=== PATIENT | male | born 1960 | race Caucasian/White ===

== ENCOUNTER 2017-07-25 15:50 | Observation (INO) ==
[2017-07-25] MEDS ORDERED: methylPREDNISolone 125 MG/2 ML VIAL IVP ONE (16:44)
[2017-07-25] MEDS ORDERED: Ipratropium/Albuterol Neb 3 ML IH ONE (16:44)
--- NOTE | 2017-07-25 16:49 | Emergency Department Note ---
Disposition Clinical Impression: Acute exacerbation of chronic obstructive airways disease Disposition: Admitted As Inpatient Condition: Fair Referrals: Marilyn Rojas CNP [Primary Care Provider] - Forms: ED Satisfaction Letter Time of Disposition: 19:00 SOB HPI - General Chief Complaint: ED Shortness of Breath/Dyspnea Stated Complaint: PHYLLIS, "clot in stomach" Time Seen by Provider: 07/25/17 16:17 Source: patient Limitations: no limitations Nursing Notes Reviewed: Yes Vital Signs Reviewed: Yes - History of Present Illness Patient is a 57-year-old male who presents to [facility] ED with a chief complaint of cough and difficulty breathing. States he has had recurrent pneumonia the last 3-4 weeks and has been admitted at [facility] multiple times. Past medical history significant for COPD. States he is getting more short of breath with exertion. Denies any nausea, vomiting, fever or chills. No chest pain. Patient states he has had abdominal pain in which they told him he had a "blockage". Patient states his abdomen has continued to be tender and has had trouble with his bowel movements. Pt Subjective Complaint: shortness of breath, cough Onset (ago): week(s) Context: recent illness Severity: moderate Consistency/Duration: gradually worsening Improves with: nothing Worsens with: nothing Known history of: COPD Associated symptoms: Reports: cough, abdominal pain. Denies: chest pain, fever , nausea/vomiting Treatment prior to arrival: none - Related Data Home Medications Medication Instructions Recorded Confirmed Albuterol Sulfate [Albuterol 2 puff IH Q4H PRN 07/25/17 07/25/17 Inhaler] Azithromycin [Azithromycin] 250 mg PO PER PKG DI 07/25/17 07/25/17 Budesonide Neb [Pulmicort Neb] 0.5 mg IH BID 07/25/17 07/25/17 Docusate [Colace] 100 mg PO BID 07/25/17 07/25/17 Ipratropium/Albuterol Neb [Duoneb] 3 ml IH Q4H 07/25/17 07/25/17 Ketorolac Tromethamine 10 mg PO Q6H PRN 07/25/17 07/25/17 Oxygen 4 l NS AD 07/25/17 07/25/17 Polyethylene Glycol 3350 17 gm PO DAILY PRN 07/25/17 07/25/17 Roflumilast [Daliresp] 500 mcg PO DAILY 07/25/17 07/25/17 Tiotropium [place] [Spiriva 2 puff IH DAILY 07/25/17 07/25/17 Respimat] predniSONE [Prednisone] 50 mg PO DAILY 07/25/17 07/25/17 Allergies Allergy/AdvReac Type Severity Reaction Status Date / Time No Known Allergies Allergy Verified 08/17/16 19:37 All systems ED: reviewed and negative except as stated. Past Medical History - Past Medical History Attestation: Yes The following information was validated with the patient. Source: patient Medical history: Reports: COPD Psychiatric history: Reports: no psych history - Social History Smoking Status: Former smoker Smokeless Tobacco Status: No Alcohol use: Reports: none Drug use: Reports: marijuana Physical Exam - General Limitations: no limitations General appearance: alert, in no apparent distress - Head Head exam: atraumatic, normocephalic, normal inspection - Eye Eye exam: Present: normal appearance, EOMI - ENT ENT exam: normal exam, normal oropharynx, mucous membranes moist - Neck Neck exam: Present: normal inspection, full ROM, trachea midline - Chest Chest inspection: Present: normal inspection, symmetric chest wall rise - Respiratory Respiratory exam: Present: wheezes, other (Decreased breath sounds bilaterally) - Cardiovascular Cardiovascular exam: Present: normal rhythm, tachycardia - Abdominal Exam Abdominal exam: Present: soft, tenderness, normal bowel sounds - Extremities Exam Extremities exam: Present: normal inspection, full ROM. Absent: tenderness, pedal edema - Back Exam Back exam: Present: normal inspection, full ROM. Absent: tenderness - Neurological Exam Neurological exam: Present: alert, oriented X3 - Psychiatric Psychiatric exam: Present: normal affect, normal mood - Skin Skin exam: Present: warm, dry, intact, normal color Course Course Narrative: Patient seen and examined. Patient with difficulty breathing and abdominal pain. Lab work, chest x-ray, CTA chest, abdomen and pelvis with IV contrast ordered. We will order a triple DuoNeb as well as Solu-Medrol. - Reevaluation(s) Reevaluation #1: Imaging unremarkable. Pt still having poor aeration with tight breath sounds b/l despite multiple duonebs. Will admit for COPD exacerbation. Discussed with hospitalist Dr. Daly who has accepted pt for admission. Time: 19:00 Vital Signs Temperature 98.5 F 07/25/17 15:53 Pulse Rate 120 07/25/17 15:53 Respiratory Rate 28 07/25/17 15:53 Blood Pressure 161/90 07/25/17 15:53 O2 Sat by Pulse Oximetry 95 07/25/17 15:53 Temperature 98.5 F 07/25/17 15:53 Pulse Rate 105 07/25/17 18:52 Respiratory Rate 11 07/25/17 18:52 Blood Pressure 116/85 07/25/17 18:52 O2 Sat by Pulse Oximetry 92 07/25/17 18:52 Oxygen Delivery Oxygen Delivery Nasal Cannula Shortness of Breath/Dyspnea - Medical Records Medical records reviewed: Yes I reviewed the patient's medical records. - Lab Data Lab results reviewed: Yes I reviewed the patient's lab results. Result diagrams: 07/25/17 16:53 07/25/17 16:53 Lab Results 07/25/17 07/25/17 07/25/17 Range/Units 16:53 16:53 16:53 WBC 7.4 (4.3-11.1) K/mcL RBC 4.78 (4.19-5.50) M/mcL Hgb 13.7 (12.9-16.9) g/dL Hct 42.4 (37.5-50.1) % MCV 88.7 (83.0-100.0) fL MCH 28.7 (28.0-33.3) pg MCHC 32.3 (31.6-35.5) g/dL RDW 14.6 H (11.5-14.5) % Plt Count 313 (140-400) K/mcL MPV 9.6 (9.4-12.4) fL Immature Gran % 0.3 (0-4) % Seg Neutrophils % 94.2 % Lymphocytes % 3.5 % Monocytes % 2.0 % Eosinophils % 0.0 % Basophils % 0.0 % Neutrophils # 6.9 (1.6-8.9) K/mcL Lymphocytes # 0.3 L (0.6-4.6) K/mcL Monocytes # 0.2 (0.0-1.3) K/mcL Eosinophils # 0.0 (0.0-0.6) K/mcL Basophils # 0.0 (0.0-0.2) K/mcL Sodium 137 (136-145) mEq/L Potassium 4.5 (3.5-5.1) mEq/L Chloride 96 L (98-107) mEq/L Carbon Dioxide 31 H (23-29) mEq/L BUN 25 H (6-20) mg/dL Creatinine 0.67 L (0.70-1.30) mg/dL Est GFR ( Amer) > 60 (> 60) Est GFR (Non-Af Amer) > 60 (> 60) BUN/Creatinine Ratio 37 H (6-26) Glucose 160 H (70-105) mg/dL Calculated Osmolality 292 (280-300) Lactic Acid 1.4 (0.5-2.2) mmol/L Calcium 9.1 (8.6-10.3) mg/dL Troponin I < 0.03 (< 0.04) ng/mL B-Natriuretic Peptide (Less than 100) pg/mL 07/25/17 Range/Units 16:53 WBC (4.3-11.1) K/mcL RBC (4.19-5.50) M/mcL Hgb (12.9-16.9) g/dL Hct (37.5-50.1) % MCV (83.0-100.0) fL MCH (28.0-33.3) pg MCHC (31.6-35.5) g/dL RDW (11.5-14.5) % Plt Count (140-400) K/mcL MPV (9.4-12.4) fL Immature Gran % (0-4) % Seg Neutrophils % % Lymphocytes % % Monocytes % % Eosinophils % % Basophils % % Neutrophils # (1.6-8.9) K/mcL Lymphocytes # (0.6-4.6) K/mcL Monocytes # (0.0-1.3) K/mcL Eosinophils # (0.0-0.6) K/mcL Basophils # (0.0-0.2) K/mcL Sodium (136-145) mEq/L Potassium (3.5-5.1) mEq/L Chloride (98-107) mEq/L Carbon Dioxide (23-29) mEq/L BUN (6-20) mg/dL Creatinine (0.70-1.30) mg/dL Est GFR ( Amer) (> 60) Est GFR (Non-Af Amer) (> 60) BUN/Creatinine Ratio (6-26) Glucose (70-105) mg/dL Calculated Osmolality (280-300) Lactic Acid (0.5-2.2) mmol/L Calcium (8.6-10.3) mg/dL Troponin I (< 0.04) ng/mL B-Natriuretic Peptide 18 (Less than 100) pg/mL - Radiology Data Radiology results reviewed: Yes I reviewed the patient's radiology results. Chest X-Ray 07/25/17 16:44 IMPRESSION: No acute process. D/ / Torito Davila MD / Torito Davila MD Interpreting Provider: Torito Davila MD Abdomen/Pelvis CT 07/25/17 16:51 IMPRESSION: No evidence of pulmonary embolism or acute cardiopulmonary process. Severe centrilobular emphysematous changes. No evidence of acute inflammatory process in the abdomen or pelvis. D/ / 07/25/2017 18:42:19 Catrina Mejias MD / arabella Interpreting Provider: Catrina Mejias MD Chest CTA 07/25/17 16:51 IMPRESSION: No evidence of pulmonary embolism or acute cardiopulmonary process. Severe centrilobular emphysematous changes. No evidence of acute inflammatory process in the abdomen or pelvis. D/ / 07/25/2017 18:42:19 Catrina Mejias MD / arabella Interpreting Provider: Catrina Mejias MD - EKG Data EKG attestation: Yes I reviewed and interpreted this EKG. EKG results narrative: EKG done at 1609 shows normal sinus rhythm with a rate of [address] elevation or depression. Normal axis. Unchanged from prior EKG done 2016.
[2017-07-25 17:04] LABS: Hematocrit 42.4 % (37.5-50.1); Hemoglobin 13.7 g/dL (12.9-16.9); Immature Granulocytes % 0.3 % (0-4); Lymphocytes # 0.3 K/mcL (0.6-4.6); Lymphocytes % 3.5 %; Mean Corpuscular HGB Conc 32.3 g/dL (31.6-35.5); Mean Corpuscular Hemoglobin 28.7 pg (28.0-33.3); Mean Corpuscular Volume 88.7 fL (83.0-100.0); Mean Platelet Volume 9.6 fL (9.4-12.4); Monocytes # 0.2 K/mcL (0.0-1.3); Neutrophils # 6.9 K/mcL (1.6-8.9); Platelet Count 313 K/mcL (140-400); Red Blood Count 4.78 M/mcL (4.19-5.50); Red Cell Distribution Width 14.6 % (11.5-14.5); Segmented Neutrophils % 94.2 %
--- NOTE | 2017-07-25 17:25 | Emergency Department Note ---
START Narrative - START START: I examined this patient and my medical decision-making was reviewed with the Resident Physician. I agree with the documented findings, disposition and treatment plan as described except to the extent set forth below. 57 year old male presnts to the ED with complaints of dyspnea and states that he was most recently admitted to [facility] for pneumonia and has a history of COPD. In regards to the clot in his stomach he typically states taht he becomes constipated and then feels as thogh he beceomes bloated. PAtent has decreased air movement. We will treat him with breathing treamtnts and steroids and re-evalaute for HCAP.
[2017-07-25 17:28] LABS: BUN/Creatinine Ratio 37 (6-26); Blood Urea Nitrogen 25 mg/dL (6-20); Calcium 9.1 mg/dL (8.6-10.3); Carbon Dioxide 31 mEq/L (23-29); Chloride 96 mEq/L (98-107); Glucose 160 mg/dL (70-105); Osmolality,Calculated 292 (280-300); Potassium 4.5 mEq/L (3.5-5.1); Sodium 137 mEq/L (136-145); Troponin I < 0.03 ng/mL (< 0.04); eGFR For African Americans > 60 (> 60); eGFR For Non-African Americans > 60 (> 60)
[2017-07-25] MEDS ORDERED: Pantoprazole 40 MG VIAL IVP ONE (19:14)
[2017-07-25] MEDS ORDERED: Naloxone 0.4 MG/ML INJ IVP PRN (20:12)
[2017-07-25] MEDS ORDERED: NON-FORMULARY MEDICATION 1 EACH EACH (Oxygen [Oxygen] 4 L) NS SCH (20:15)
--- NOTE | 2017-07-25 20:21 | Internal Med History&Physical ---
Date of Encounter: 07/25/17 Time of Encounter: 19:30 Assessment and Plan (1) Acute exacerbation of chronic obstructive airways disease Current visit: Yes Status: Acute Patient presenting with shortness of breath and wheezing. We will place him under observation the hospital for acute COPD exacerbation. Treat with bronchodilators, intravenous steroids and O2 supplementation. Moderate risk for complications. We will also add Symbicort. (2) Chronic respiratory failure with hypoxia Current visit: Yes Status: Acute On 4 L home oxygen. Will continue O2 supplementation. (3) Abdominal pain Current visit: Yes Status: Acute Patient has lower abdominal pain. Nontender to palpation. Will get ultrasound of the abdomen in the morning to look for any acute abdominal process/ascites Qualifiers: Abdominal location: lower abdomen, unspecified Qualified Code(s): R10.30 - Lower abdominal pain, unspecified (4) DVT prophylaxis Current visit: Yes Status: Acute With subcutaneous heparin Internal Medicine - H&P: HPI Chief complaint: Shortness of breath and abdominal bloating Admitted From: Emergency Dept Plans for Post Hospital Care: Home History of present illness: Mr. Blanchard is a 57 year old male patient with history of COPD who presented here with complaints of shortness of breath and abdominal discomfort. He says his symptoms have been going on for a month. He was previously diagnosed with pneumonia and had been prescribed antibiotics as outpatient. He was then hospitalized at [facility] for shortness of breath and COPD 2 times over the past couple of weeks. He says he has never ever has not really recovered from that episode and began to have worsening shortness of breath since yesterday. No fever or chills reported. Does have cough with mild sputum production. No chest pain. No palpitations. He also complains of abdominal bloating and discomfort. He denies any nausea or vomiting. He had a bowel movement earlier this morning. Denies any history of alcohol abuse. No prior history of cirrhosis or ascites. Past Med Surg Social Fam HX - Past Medical History Attestation: Yes The following information was validated with the patient. Source: patient Medical history: COPD Psychiatric history: no psych history - Social History Smoking Status: Former smoker Smokeless Tobacco Status: No Alcohol use: none Drug use: marijuana Internal Medicine - H&P: Meds Albuterol Sulfate [Albuterol Inhaler] 2 puff IH Q4H PRN 07/25/17 [History] Azithromycin [Azithromycin] 250 mg PO PER PKG DI 07/25/17 [History] Budesonide Neb [Pulmicort Neb] 0.5 mg IH BID 07/25/17 [History] Docusate [Colace] 100 mg PO BID 07/25/17 [History] Ipratropium/Albuterol Neb [Duoneb] 3 ml IH Q4H 07/25/17 [History] Ketorolac Tromethamine 10 mg PO Q6H PRN 07/25/17 [History] Oxygen 4 l NS AD 07/25/17 [History] Polyethylene Glycol 3350 17 gm PO DAILY PRN 07/25/17 [History] Roflumilast [Daliresp] 500 mcg PO DAILY 07/25/17 [History] Tiotropium [place] [Spiriva Respimat] 2 puff IH DAILY 07/25/17 [History] predniSONE [Prednisone] 50 mg PO DAILY 07/25/17 [History] 3 Allergy/AdvReac Type Severity Reaction Status Date / Time No Known Allergies Allergy Verified 08/17/16 19:37 All Systems PM: A 10-system review of systems was performed and is negative for pertinent findings except as documented above in the HPI. - Constitutional Constitutional: malaise, no chills, no fever(s), no night sweats - EENT Eyes: no change in vision, no discharge, no pain, no photophobia Ears: no ear discharge, no ear pain, no tinnitus Nose, mouth and throat: no dysphagia, no nasal discharge, no neck pain, no sore throat - Cardiovascular Cardiovascular ROS IM: no chest pain, no diaphoresis, no dyspnea, no lightheadedness, no palpitations, no syncope - Respiratory Respiratory: dyspnea, no cough, no wheezing, no excessive phlegm production - Gastrointestinal Gastrointestinal: no abdominal pain, no diarrhea, no hematemesis, no hematochezia, no melena, no nausea, no vomiting - Musculoskeletal Musculoskeletal ROS IM: no numbness, no tingling - Integumentary Integumentary IM: no rash, no unusual bruising - Neurological Neurological ROS: no confusion, no convulsions, no focal weakness, no numbness, no tingling, no tremor(s) - Hematologic/Lymphatic Hematologic/Lymphatic: no easy bruising - Constitutional Vitals: Temp Pulse Resp BP Pulse Ox 98.5 F 105 11 116/85 92 07/25/17 15:53 07/25/17 18:52 07/25/17 18:52 07/25/17 18:52 07/25/17 18:52 General appearance: Present: cooperative, mild distress, A&O X 3, answers questions appropriately - Neck Neck exam general surgery: Present: supple, trachea midline. Absent: lymphadenopathy - Respiratory Respiratory exam: Present: prolonged expiratory phase, wheezes. Absent: accessory muscle use, rales, rhonchi - Cardiovascular Cardiovascular exam: Present: RRR, +S1, +S2. Absent: diastolic murmur, gallop, rubs, systolic murmur - GI/Abdominal GI/Abdominal exam: Present: normal bowel sounds, soft, no peritoneal signs. Absent: distended, tenderness - Extremities Exam Extremities exam: Present: warm, radial pulses palpable and symmetrical. Absent : calf tenderness, cyanotic, pedal edema - Neurological Exam Neurological exam: Present: alert, CN II-XII intact, oriented X3, no focal deficits. Absent: facial droop, speech deficit - Skin Skin exam: Present: dry, intact Internal Med - H&P Results - Labs CBC & Chem 7: 07/25/17 16:53 07/25/17 16:53 Labs: Short CBC 07/25/17 Range/Units 16:53 WBC 7.4 (4.3-11.1) K/mcL Hgb 13.7 (12.9-16.9) g/dL Hct 42.4 (37.5-50.1) % Plt Count 313 (140-400) K/mcL Neutrophils # 6.9 (1.6-8.9) K/mcL BMP 07/25/17 16:53 Sodium 137 Potassium 4.5 Chloride 96 L Carbon Dioxide 31 H BUN 25 H Creatinine 0.67 L Glucose 160 H Calcium 9.1 Cardiac Enzymes 07/25/17 Range/Units 16:53 Troponin I < 0.03 (< 0.04) ng/mL - Impressions ITS Impressions Chest X-Ray 07/25/17 16:44 IMPRESSION: No acute process. D/ / Torito Davila MD / Torito Davila MD Interpreting Provider: Torito Davila MD Abdomen/Pelvis CT 07/25/17 16:51 IMPRESSION: No evidence of pulmonary embolism or acute cardiopulmonary process. Severe centrilobular emphysematous changes. No evidence of acute inflammatory process in the abdomen or pelvis. D/ / 07/25/2017 18:42:19 Catrina Mejias MD / arabella Interpreting Provider: Catrina Mejias MD Chest CTA 07/25/17 16:51
[2017-07-25] MEDS: 0.9 % Sodium Chloride 1,000 ML IVC SCH (22:21)
[2017-07-25] MEDS: methylPREDNISolone 125 MG/2 ML VIAL IVP SCH (23:37)
[2017-07-26] MEDS: Ipratropium/Albuterol Neb 3 ML IH SCH ×7 (00:32→23:48)
[2017-07-26] MEDS: Budesonide/Formoterol 160/4.5 MDI IH SCH ×3 (00:32→20:25)
[2017-07-26] MEDS: *HR* Heparin 5,000 UNIT/ML VIAL SQ SCH ×2 (05:19→17:13)
[2017-07-26 06:41] LABS: Hematocrit 38.7 % (37.5-50.1); Hemoglobin 12.3 g/dL (12.9-16.9); Immature Granulocytes % 0.3 % (0-4); Lymphocytes # 0.5 K/mcL (0.6-4.6); Lymphocytes % 8.6 %; Mean Corpuscular HGB Conc 31.8 g/dL (31.6-35.5); Mean Corpuscular Hemoglobin 28.3 pg (28.0-33.3); Mean Platelet Volume 10.2 fL (9.4-12.4); Monocytes # 0.1 K/mcL (0.0-1.3); Neutrophils # 5.2 K/mcL (1.6-8.9); Nucleated Red Blood Cells 0.3 /100 WBC (0); Platelet Count 297 K/mcL (140-400); Red Blood Count 4.35 M/mcL (4.19-5.50); Red Cell Distribution Width 14.5 % (11.5-14.5); Segmented Neutrophils % 90.1 %
[2017-07-26 06:55] LABS: BUN/Creatinine Ratio 33 (6-26); Blood Urea Nitrogen 16 mg/dL (6-20); Calcium 8.9 mg/dL (8.6-10.3); Carbon Dioxide 30 mEq/L (23-29); Chloride 98 mEq/L (98-107); Glucose 131 mg/dL (70-105); Osmolality,Calculated 283 (280-300); Potassium 4.1 mEq/L (3.5-5.1); Sodium 135 mEq/L (136-145); eGFR For African Americans > 60 (> 60); eGFR For Non-African Americans > 60 (> 60)
[2017-07-26] MEDS: (Roflumilast [Daliresp] 500 MCG) PO SCH (10:14)
[2017-07-26] MEDS: methylPREDNISolone 125 MG/2 ML VIAL IVP SCH ×2 (10:14→17:13)
[2017-07-26] MEDS: 0.9 % Sodium Chloride 1,000 ML IVC SCH (13:24)
--- NOTE | 2017-07-26 18:17 | Internal Med Progress Note ---
Date of Encounter: 07/26/17 Time of Encounter: 18:15 - Assessment and plan (1) Abdominal pain Current Visit: Yes Status: Acute Assessment and plan: Abdominal ultrasound showed suspected mild hepatic steatosis with no other significant findings We will obtain LFTs in the a.m. Patient abdominal exam basically negative Qualifiers: Abdominal location: lower abdomen, unspecified Qualified Code(s): R10.30 - Lower abdominal pain, unspecified (2) Acute exacerbation of chronic obstructive airways disease Current Visit: Yes Status: Acute Assessment and plan: Continue steroids and Symbicort Continue to nebs [id number] Check RIP, urine antigens for Legionella and streptococcal Will obtain echocardiogram, BNP and repeat lab work in the a.m. Troponins less than 0.03, BNP 18 lactic acid 1.4 White count is normal at 5.8. Chest CTA and abdomen/ pelvis CT with no evidence of pulmonary embolism or acute cardiopulmonary process. Severe centrilobular emphysematous changes, no evidence of acute inflammatory process in abdomen or pelvis. Chest x-ray no acute process Pulmonary consult in the a.m. if patient is no better on current treatment plan (3) Chronic respiratory failure with hypoxia Current Visit: Yes Status: Acute Assessment and plan: Ira is on chronic O2 at 4 L at home and is satting in the mid to high 90s on 4 L here. (4) DVT prophylaxis Current Visit: Yes Status: Acute Assessment and plan: Heparin subcutaneous - Subjective Interval history: Patient is short of breath at rest. He denies any chest pain, fever, chills abdominal pain, urinary symptoms, dizziness, headache or visual changes. He states he has been sick for several months and an [id number] treated for pneumonia and COPD exacerbations at several different hospitals. - Constitutional Vitals: Temp Pulse Resp BP Pulse Ox 98.7 F 75 14 96/54 97 07/26/17 15:37 07/26/17 15:37 07/26/17 16:00 07/26/17 15:37 07/26/17 16:00 General appearance: Present: cooperative, disheveled, mild distress, A&O X 3, pleasant, answers questions appropriately - Head Head exam: Present: atraumatic, normocephalic - Eye Eye exam: Present: PERRL, conjuntiva pink, sclera anicteric Pupils: Present: PERRL - Neck Neck exam general surgery: Present: supple, trachea midline. Absent: lymphadenopathy - Respiratory Respiratory exam: Present: decreased breath sounds, prolonged expiratory phase, wheezes. Absent: accessory muscle use, chest wall tenderness, rales, rhonchi - Cardiovascular Cardiovascular exam: Present: RRR, +S1, +S2. Absent: diastolic murmur, gallop, rubs, systolic murmur - GI/Abdominal GI/Abdominal exam: Present: normal bowel sounds, soft, no peritoneal signs. Absent: distended, tenderness - Extremities Exam Extremities exam: Present: warm, radial pulses palpable and symmetrical. Absent : calf tenderness, cyanotic, pedal edema - Neurological Exam Neurological exam: Present: CN II-XII intact, oriented X3, no focal deficits. Absent: pronater drift, facial droop, speech deficit - Skin Skin exam: Present: dry, intact, normal color, warm Internal Medicine: Result - Labs CBC & Chem 7: 07/26/17 04:49 07/26/17 04:49 Labs: Short CBC 07/26/17 Range/Units 04:49 WBC 5.8 (4.3-11.1) K/mcL Hgb 12.3 L (12.9-16.9) g/dL Hct 38.7 (37.5-50.1) % Plt Count 297 (140-400) K/mcL Neutrophils # 5.2 (1.6-8.9) K/mcL BMP 07/26/17 04:49 Sodium 135 L Potassium 4.1 Chloride 98 Carbon Dioxide 30 H BUN 16 Creatinine 0.49 L Glucose 131 H Calcium 8.9 - Impressions Impressions Abdomen Ultrasound 07/26/17 08:30 IMPRESSION: Suspected mild hepatic steatosis. Correlate with liver function studies. No other significant findings in the abdomen. D/ / Dylon Carlson MD / Dylon Carlson MD Interpreting Provider: Dylon Carlson MD Consult Discharge Plan - Plan Referrals: Marilyn Rojas, FIRE PREVENTION ENGINEER [Primary Care Provider] -
--- NOTE | 2017-07-26 19:28 | Electrocardiograph Report ---
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
[2017-07-27 00:02] LABS: Adenovirus Not Detected (Not Detect); Bordetella Pertussis Not Detected (Not Detect); Chlamydophila pneumoniae Not Detected (Not Detect); Coronavirus 229E Not Detected (Not Detect); Coronavirus HKU1 Not Detected (Not Detect); Coronavirus NL63 Not Detected (Not Detect); Coronavirus OC43 Not Detected (Not Detect); Human Metapneumovirus Not Detected (Not Detect); Human Rhinovirus/Enterovirus Not Detected (Not Detect); Influenza A Subtype 2009 H1 Not Detected (Not Detect); Influenza A Untypeable Not Detected (Not Detect); Influenza B Not Detected (Not Detect); Mycoplasma pneumoniae Not Detected (Not Detect); Parainfluenza Virus 1 Not Detected (Not Detect); Parainfluenza Virus 2 Not Detected (Not Detect); Parainfluenza Virus 3 Not Detected (Not Detect); Parainfluenza Virus 4 Not Detected (Not Detect); Respiratory Syncytial Virus Not Detected (Not Detect)
[2017-07-27] MEDS: methylPREDNISolone 125 MG/2 ML VIAL IVP SCH ×3 (00:10→17:50)
[2017-07-27] MEDS: 0.9 % Sodium Chloride 1,000 ML IVC SCH (02:36)
[2017-07-27] MEDS: Ipratropium/Albuterol Neb 3 ML IH SCH ×6 (04:20→23:46)
[2017-07-27] MEDS: *HR* Heparin 5,000 UNIT/ML VIAL SQ SCH ×2 (05:05→17:50)
[2017-07-27 06:20] LABS: Hematocrit 36.6 % (37.5-50.1); Hemoglobin 11.6 g/dL (12.9-16.9); Immature Granulocytes % 0.7 % (0-4); Lymphocytes # 0.3 K/mcL (0.6-4.6); Lymphocytes % 4.8 %; Mean Corpuscular HGB Conc 31.7 g/dL (31.6-35.5); Mean Corpuscular Hemoglobin 28.5 pg (28.0-33.3); Mean Corpuscular Volume 89.9 fL (83.0-100.0); Monocytes # 0.2 K/mcL (0.0-1.3); Monocytes % 2.4 %; Neutrophils # 6.4 K/mcL (1.6-8.9); Platelet Count 270 K/mcL (140-400); Red Blood Count 4.07 M/mcL (4.19-5.50); Red Cell Distribution Width 14.6 % (11.5-14.5); Segmented Neutrophils % 92.1 %
[2017-07-27 06:37] LABS: Alanine Aminotransferase 13 Units/L (7-52); Albumin 3.3 g/dL (3.5-5.7); Albumin/Globulin Ratio 1.6 (1.1-2.2); Alkaline Phosphatase 46 Units/L (34-104); Aspartate Amino Transferase 7 Units/L (13-39); BUN/Creatinine Ratio 27 (6-26); Bilirubin,Total 0.3 mg/dL (0.3-1.0); Blood Urea Nitrogen 16 mg/dL (6-20); Calcium 8.8 mg/dL (8.6-10.3); Carbon Dioxide 29 mEq/L (23-29); Chloride 100 mEq/L (98-107); Globulin 2.1 g/dL (2.4-3.5); Glucose 185 mg/dL (70-105); Osmolality,Calculated 286 (280-300); Potassium 4.6 mEq/L (3.5-5.1); Sodium 135 mEq/L (136-145); Total Protein 5.4 g/dL (6.4-8.9); eGFR For African Americans > 60 (> 60); eGFR For Non-African Americans > 60 (> 60)
[2017-07-27] MEDS: Budesonide/Formoterol 160/4.5 MDI IH SCH ×2 (08:00→19:52)
[2017-07-27] MEDS: (Roflumilast [Daliresp] 500 MCG) PO SCH (11:23)
[2017-07-27] MEDS ORDERED: Lactulose Oral Soln 20 GM/30 ML UDC PO ONE (11:35)
--- NOTE | 2017-07-27 16:27 | Internal Med Progress Note ---
Date of Encounter: 07/27/17 Time of Encounter: 16:23 - Assessment and plan (1) Abdominal pain Current Visit: Yes Status: Acute Assessment and plan: Abdominal ultrasound showed suspected mild hepatic steatosis, no other significant findings LFTs iunremarkable Patient abdominal exam basically negative Qualifiers: Abdominal location: lower abdomen, unspecified Qualified Code(s): R10.30 - Lower abdominal pain, unspecified (2) Acute exacerbation of chronic obstructive airways disease Current Visit: Yes Status: Acute Assessment and plan: Continue steroids and Symbicort Continue nebs [id number] RIP, urine antigens for Legionella and streptococcal negative echocardiogram pending Troponins less than 0.03, BNP 18 lactic acid 1.4 White count is normal Chest CTA and abdomen/ pelvis CT with no evidence of pulmonary embolism or acute cardiopulmonary process. Severe centrilobular emphysematous changes, no evidence of acute inflammatory process in abdomen or pelvis. Chest x-ray no acute process Pulmonary consult mucinex (3) Chronic respiratory failure with hypoxia Current Visit: Yes Status: Acute Assessment and plan: chronic O2 at 4 L at home and is satting in the mid to high 90s on 4 L here. (4) DVT prophylaxis Current Visit: Yes Status: Acute Assessment and plan: Heparin subcut - Subjective Interval history: Patient is feeling almost back to baseline. He is very congested. He states he cannot cough anything up. No fevers, chills, chest pain, dyspnea at rest, abdominal pain, changes in bowel or bladder, dizziness or headache. - Constitutional Vitals: Temp Pulse Resp BP Pulse Ox 97.9 F 70 16 127/74 97 07/27/17 15:02 07/27/17 15:02 07/27/17 16:13 07/27/17 15:02 07/27/17 16:13 General appearance: Present: cooperative, disheveled, A&O X 3, pleasant, answers questions appropriately - Head Head exam: Present: atraumatic, normocephalic - Eye Eye exam: Present: PERRL, conjuntiva pink, sclera anicteric Pupils: Present: PERRL - Neck Neck exam general surgery: Present: supple, trachea midline. Absent: lymphadenopathy - Respiratory Respiratory exam: Present: decreased breath sounds, prolonged expiratory phase, rhonchi. Absent: accessory muscle use, rales, wheezes - Cardiovascular Cardiovascular exam: Present: RRR, +S1, +S2. Absent: diastolic murmur, gallop, rubs, systolic murmur - GI/Abdominal GI/Abdominal exam: Present: normal bowel sounds, soft, no peritoneal signs. Absent: distended, tenderness - Extremities Exam Extremities exam: Present: warm, radial pulses palpable and symmetrical. Absent : calf tenderness, cyanotic, pedal edema - Neurological Exam Neurological exam: Present: CN II-XII intact, oriented X3, no focal deficits. Absent: pronater drift, facial droop, speech deficit - Skin Skin exam: Present: dry, intact, normal color, warm Internal Medicine: Result - Labs CBC & Chem 7: 07/27/17 05:31 07/27/17 05:31 Labs: Short CBC 07/27/17 Range/Units 05:31 WBC 6.9 (4.3-11.1) K/mcL Hgb 11.6 L (12.9-16.9) g/dL Hct 36.6 L (37.5-50.1) % Plt Count 270 (140-400) K/mcL Neutrophils # 6.4 (1.6-8.9) K/mcL BMP 07/27/17 05:31 Sodium 135 L Potassium 4.6 Chloride 100 Carbon Dioxide 29 BUN 16 Creatinine 0.60 L Glucose 185 H Calcium 8.8 Liver Function 07/27/17 Range/Units 05:31 Total Bilirubin 0.3 (0.3-1.0) mg/dL AST 7 L (13-39) Units/L ALT 13 (7-52) Units/L Alkaline Phosphatase 46 (34-104) Units/L Albumin 3.3 L (3.5-5.7) g/dL Consult Discharge Plan - Plan Referrals: Marilyn Rojas, HAT LINER [Primary Care Provider] -
--- NOTE | 2017-07-27 17:22 | Pulmonology Consult Note ---
Date of Encounter: 07/27/17 Time of Encounter: 16:00 Assessment and Plan (1) Acute and chronic respiratory failure Current Visit: Yes Status: Acute Patient has Acute on Chronic hypoxic respiratory failure most likely due to COPD , some previous presentation more point towards CHF exacerbation so it is reasonable to check diastolic and systolic function with ECHO . To continue O2 supplementation to keep SPO2 around 92% . To get ABG to see the severity of hypercarbia . Qualifiers: Respiratory failure complication: hypoxia Qualified Code(s): J96.21 - Acute and chronic respiratory failure with hypoxia (2) Acute exacerbation of chronic obstructive airways disease Current Visit: Yes Status: Acute Patient current presentation more point towards COPD exacerbation to continue bronchodilators, steroids and antibiotics . Send him home on 2 weeks of steroid taper , 7 days of total antibiotics. To evaluate for CHF with ECHO . (3) Smoking addiction Current Visit: Yes Status: Acute Counseled about smoking cessation of weed as this can also incite neutrophilic inflammation which will lead to COPD exacerbation. History of Present Illness Consult date: 07/27/17 Requesting physician: Susan Rose Chief complaint: shortness of breadth and cough History of present illness: 57 year old male with past medical history significant for COPD with CT chest showing emphysematous changes , O2 dependent comes with increasing shortness of breadth with some cough and sputum production denies any hemoptysis, denies any PND or orthopnea ,patient is a chronic smoker patient says he stopped smoking tobacco and says he smokes weed now , denies any pedal edema , denies any orthopnea and PND , denies any chest pain or palpitations the last 2 admissions in [facility] looks like a CHF exacerbation , denies any fever or chills no sick contact , denies any GERD or any other MSK symptoms , denies any Neuro symptoms . Patient work up CTA showed emphysematous changes with no pulmonary embolism , flu work up was negative . Pulmonary was consulted for evaluation of Acute on Chronic hypoxic respiratory failure . Past Med Surg Social Fam HX - Past Medical History Medical history: COPD Psychiatric history: no psych history - Social History Smoking Status: Former smoker Smokeless Tobacco Status: No Alcohol use: none Drug use: marijuana - Family History Father Hx Family Cancer: Yes (colon) Medications and Allergies Albuterol Sulfate [Albuterol Inhaler] 2 puff IH Q4H PRN 07/25/17 [History] Azithromycin [Azithromycin] 250 mg PO PER PKG DI 07/25/17 [History] Budesonide Neb [Pulmicort Neb] 0.5 mg IH BID 07/25/17 [History] Docusate [Colace] 100 mg PO BID 07/25/17 [History] Ipratropium/Albuterol Neb [Duoneb] 3 ml IH Q4H 07/25/17 [History] Ketorolac Tromethamine 10 mg PO Q6H PRN 07/25/17 [History] Oxygen 4 l NS AD 07/25/17 [History] Polyethylene Glycol 3350 17 gm PO DAILY PRN 07/25/17 [History] Roflumilast [Daliresp] 500 mcg PO DAILY 07/25/17 [History] Tiotropium [place] [Spiriva Respimat] 2 puff IH DAILY 07/25/17 [History] predniSONE [Prednisone] 50 mg PO DAILY 07/25/17 [History] 3 Allergy/AdvReac Type Severity Reaction Status Date / Time No Known Allergies Allergy Verified 08/17/16 19:37 All Systems: The remainder of the systems were reviewed and are negative Physical Examination Vital Signs: Vital Signs, Last 4 Hours Temp Pulse Resp BP Pulse Ox 07/27/17 16:13 16 97 07/27/17 15:02 97.9 F 70 16 127/74 97 Auscultation: bilateral: wheezes Results - Laboratory Findings CBC and BMP: 07/27/17 05:31 07/27/17 05:31 Abnormal lab findings: Abnormal lab results RBC 4.07 M/mcL (4.19-5.50) L 07/27/17 05:31 Hgb 11.6 g/dL (12.9-16.9) L 07/27/17 05:31 Hct 36.6 % (37.5-50.1) L 07/27/17 05:31 RDW 14.6 % (11.5-14.5) H 07/27/17 05:31 Lymphocytes # 0.3 K/mcL (0.6-4.6) L 07/27/17 05:31 Nucleated RBCs/100 WBC 0.3 /100 WBC (0) H 07/26/17 04:49 Sodium 135 mEq/L (136-145) L 07/27/17 05:31 Creatinine 0.60 mg/dL (0.70-1.30) L 07/27/17 05:31 BUN/Creatinine Ratio 27 (6-26) H 07/27/17 05:31 Glucose 185 mg/dL (70-105) H 07/27/17 05:31 AST 7 Units/L (13-39) L 07/27/17 05:31 Serum Total Protein 5.4 g/dL (6.4-8.9) L 07/27/17 05:31 Albumin 3.3 g/dL (3.5-5.7) L 07/27/17 05:31 Globulin 2.1 g/dL (2.4-3.5) L 07/27/17 05:31 - Microbiology Findings Microbiology Findings: Microbiology, Last 48 Hours 07/26/17 21:50 Sputum Culture - Final Sputum 07/26/17 21:45 Legionella Antigen - Final Urine,Clean Catch Streptococcus pneumoniae Antigen (M - Final - Clinical Findings Intake & Output: Intake & Output 07/27/17 07/27/17 07/27/17 07:59 15:59 23:59 Intake Total 1000 / 1000 Balance 1000 / 1000 Weight 85.956 kg Consult Discharge Plan - Plan Referrals: Marilyn Rojas, [facility] COOKER [Primary Care Provider] -
[2017-07-27] MEDS ORDERED: *HR* HYDROcodone/Acet 5/325 mg TABLET PO PRN (20:46)
[2017-07-28] MEDS: methylPREDNISolone 125 MG/2 ML VIAL IVP SCH ×2 (00:11→08:13)
[2017-07-28] MEDS: Ipratropium/Albuterol Neb 3 ML IH SCH ×3 (04:03→11:47)
[2017-07-28] MEDS: *HR* Heparin 5,000 UNIT/ML VIAL SQ SCH (05:57)
[2017-07-28] MEDS: 0.9 % Sodium Chloride 1,000 ML IVC SCH (07:25)
[2017-07-28] MEDS: Budesonide/Formoterol 160/4.5 MDI IH SCH (07:41)
[2017-07-28] MEDS: (Roflumilast [Daliresp] 500 MCG) PO SCH (08:13)
[2017-07-28 11:16] VITALS: BP 125/74
--- NOTE | 2017-07-28 12:10 | Discharge Summary ---
Orders not resulted at time of discharge: Pending orders 07/26/17 18:52 Mycoplasma pneumoniae IgG IgM Routine Date of Encounter: 07/28/17 Time of Encounter: 12:04 - Discharge Diagnosis (1) Abdominal pain Priority: Primary Status: Chronic Comments: Abdominal ultrasound showed suspected mild hepatic steatosis, no other significant findings LFTs iunremarkable Patient abdominal exam basically negative Follow-up PCP if still bothering him Qualifiers: Abdominal location: lower abdomen, unspecified Qualified Code(s): R10.30 - Lower abdominal pain, unspecified (2) Acute exacerbation of chronic obstructive airways disease Priority: Primary Status: Acute Comments: Continue po steroids taper on discharge and Symbicort Continue nebs at home, patient states he has a nebulizer and medication RIP, urine antigens for Legionella and streptococcal negative echocardiogram completed and reviewed with LVEF of 55%, normal LV chamber size wall thickness and function. Mild left ventricular diastolic dysfunction and normal right ventricular structure and function. Mild mitral regurgitation and no pulmonary hypertension Troponins less than 0.03, BNP 18 lactic acid 1.4 White count is normal Chest CTA and abdomen/ pelvis CT with no evidence of pulmonary embolism or acute cardiopulmonary process. Severe centrilobular emphysematous changes, no evidence of acute inflammatory process in abdomen or pelvis. Chest x-ray no acute process Pulmonary consult and recommends following up with [facility] near his home. Continue Mucinex Complete course of antibiotics with prescription prescribed (3) Chronic respiratory failure with hypoxia Priority: Primary Status: Chronic Comments: Patient is on 4 L nasal cannula continuously at home and has been maintained on 4 L here. No change in oxygen orders Hospital course: Mr. Blanchard is a 57 year old male admitted with exacerbation of COPD seen by pulmonology. Please see the assessment and plan for further details of this admission Discharge discussed with: patient, nurse, nurse consultant - Time Spent with Patient Total time spent providing and/or coordinating discharge services: Less than 30 minutes - Discharge Medications Prescriptions: Azithromycin 250 mg PO DAILY #7 tablet predniSONE [PredniSONE] 10 mg PO DAILY #40 tablet Home Medications: Albuterol Sulfate [Albuterol Inhaler] 2 puff IH Q4H PRN 07/25/17 [History] Budesonide Neb [Pulmicort Neb] 0.5 mg IH BID 07/25/17 [History] Docusate [Colace] 100 mg PO BID 07/25/17 [History] Ipratropium/Albuterol Neb [Duoneb] 3 ml IH Q4H 07/25/17 [History] Ketorolac Tromethamine 10 mg PO Q6H PRN 07/25/17 [History] Oxygen 4 l NS AD 07/25/17 [History] Polyethylene Glycol 3350 17 gm PO DAILY PRN 07/25/17 [History] Roflumilast [Daliresp] 500 mcg PO DAILY 07/25/17 [History] Tiotropium [place] [Spiriva Respimat] 2 puff IH DAILY 07/25/17 [History] Azithromycin 250 mg PO DAILY #7 tablet 07/28/17 [Rx] GuaiFENesin ER [Mucinex] 600 mg PO BID tbbp.12hr 07/28/17 [Rx] predniSONE [PredniSONE] 10 mg PO DAILY #40 tablet 07/28/17 [Rx] Allergies/Adverse Reactions: 3 Allergy/AdvReac Type Severity Reaction Status Date / Time No Known Allergies Allergy Verified 08/17/16 19:37 Date of admission: 07/25/17 20:26 Primary care physician: Marilyn Rojas CNP Consults: 07/27/17 15:33 Consult to Pulmonology [CONS] Routine Consulting Provider: [facility] [place] Reason for Consult: copd ex Time Notified: 15:33 Call Completed: Yes Discharging clinician: Susan Rose Anticipated date of discharge: 07/28/17 - Constitutional Vitals: Temp Pulse Resp BP Pulse Ox 97.8 F 64 20 125/74 94 07/28/17 11:15 07/28/17 11:15 07/28/17 11:48 07/28/17 11:15 07/28/17 11:48 General appearance: Present: cooperative, disheveled, A&O X 3, pleasant, no acute distress, answers questions appropriately - Head Head exam: Present: atraumatic, normocephalic - Eye Eye exam: Present: PERRL, conjuntiva pink, sclera anicteric Pupils: Present: PERRL - Neck Neck exam general surgery: Present: supple, trachea midline. Absent: lymphadenopathy - Respiratory Respiratory exam: Present: decreased breath sounds, prolonged expiratory phase. Absent: accessory muscle use, rales, rhonchi, wheezes - Cardiovascular Cardiovascular exam: Present: RRR, +S1, +S2. Absent: diastolic murmur, gallop, rubs, systolic murmur - GI/Abdominal GI/Abdominal exam: Present: normal bowel sounds, soft, no peritoneal signs. Absent: distended, tenderness - Extremities Exam Extremities exam: Present: warm, radial pulses palpable and symmetrical. Absent : calf tenderness, cyanotic, pedal edema - Neurological Exam Neurological exam: Present: alert, CN II-XII intact, normal gait, oriented X3, no focal deficits. Absent: pronater drift, facial droop, speech deficit - Skin Skin exam: Present: dry, intact, normal color, warm - Patient Status Disposition: Home, Self-Care Condition: Fair Functional capacity at discharge: independent ambulation Overall status at discharge: patient is progressing back to baseline - Discharge Instructions Instructions: Prednisone (By mouth), Azithromycin (By mouth), COPD Exacerbation , Fruit And Vegetable Parer (GEN) Follow Up With: Marilyn Rojas CNP [Primary Care Provider] - 08/09/17 8:15 am (You were given the soonest appointment avalible. If you have questions on concerns please call the office at the number above. Thank you. ) Additional Instructions: Follow-up with pulmonary service near home Follow-up appointments: If there is not an appointment listed below, please call your physician and schedule a follow-up appointment. If you have congestive heart failure and your symptoms return, make an appointment with your physician. Medication List: Carry an up to date list of medications you are taking at all time. We have given you an updated medication list including any new medications that you have been prescribed. Please provide that list to your primary provider Symptoms: If your condition changes or you experience any of the following symptoms, notify your physician immediately: Unusual or worsening pain, fever, persistent nausea and vomiting, bleeding, increase in swelling (especially in your legs), sudden weight gain, extreme dizziness, chest pain, increased drainage or redness from a wound or incision. Go to the emergency department if you experience a problem with breathing. Weights: If you have a history of swelling or shortness of breath, weigh yourself daily and notify your physician if you have a weight gain of two or more pounds in one day or 5 or more pounds in a week. If you experience any of the warning signs for stroke: Sudden numbness or weakness of the face, arm or leg; especially on one side of the body, sudden confusion, trouble speaking or understanding, sudden trouble seeing in one or both eyes, sudden trouble walking, dizziness, loss of balance or coordination, sudden sever headache with no cause; Call 911 or go to the emergency room. Stroke is a medical emergency. Some risk factors for stroke: Age, cigarette smoking, diabetes, excessive alcohol consumption, family history , high blood pressure, overweight, physical inactivity, prior stroke, heart attack, diagnosis of carotid artery stenosis or other artery disease. If you smoke, STOP: Smoking or tobacco use significantly increases your risk of heart and lung disease. Your chance of disease greatly increases if you continue to smoke. For more information, call the [place] tobacco quit line for smoking cessation QUIT-NOW ( ) - Diet and Activity Activity: resume usual activities as tolerated, wear oxygen at all times Diet: advance to your usual diet
--- NOTE | 2017-07-28 13:06 | Pulmonology Progress Note ---
Date of Encounter: 07/28/17 Time of Encounter: 12:30 Assessment and Plan (1) Acute and chronic respiratory failure Current Visit: Yes Status: Acute Qualifiers: Respiratory failure complication: hypoxia Qualified Code(s): J96.21 - Acute and chronic respiratory failure with hypoxia (2) Acute exacerbation of chronic obstructive airways disease Current Visit: Yes Status: Acute (3) Smoking addiction Current Visit: Yes Status: Acute Objective PUL Vital signs: Last Vital Signs Temp 97.8 F 07/28/17 11:15 Pulse 64 07/28/17 11:15 Resp 20 07/28/17 11:48 BP 125/74 07/28/17 11:15 Pulse Ox 94 07/28/17 11:48 Results - Laboratory Findings CBC and BMP: 07/27/17 05:31 07/27/17 05:31 Abnormal lab findings: Abnormal lab results RBC 4.07 M/mcL (4.19-5.50) L 07/27/17 05:31 Hgb 11.6 g/dL (12.9-16.9) L 07/27/17 05:31 Hct 36.6 % (37.5-50.1) L 07/27/17 05:31 RDW 14.6 % (11.5-14.5) H 07/27/17 05:31 Lymphocytes # 0.3 K/mcL (0.6-4.6) L 07/27/17 05:31 Nucleated RBCs/100 WBC 0.3 /100 WBC (0) H 07/26/17 04:49 Sodium 135 mEq/L (136-145) L 07/27/17 05:31 Creatinine 0.60 mg/dL (0.70-1.30) L 07/27/17 05:31 BUN/Creatinine Ratio 27 (6-26) H 07/27/17 05:31 Glucose 185 mg/dL (70-105) H 07/27/17 05:31 AST 7 Units/L (13-39) L 07/27/17 05:31 Serum Total Protein 5.4 g/dL (6.4-8.9) L 07/27/17 05:31 Albumin 3.3 g/dL (3.5-5.7) L 07/27/17 05:31 Globulin 2.1 g/dL (2.4-3.5) L 07/27/17 05:31 - Microbiology Findings Microbiology Findings: Microbiology, Last 48 Hours 07/26/17 21:50 Sputum Culture - Final Sputum 07/26/17 21:45 Legionella Antigen - Final Urine,Clean Catch Streptococcus pneumoniae Antigen (M - Final - Clinical Findings Intake & Output: Intake & Output 07/27/17 07/28/17 07/28/17 23:59 07:59 15:59 Intake Total 1000 / 1000 340 / 340 Balance 1000 / 1000 340 / 340 Consult Discharge Plan - Plan Instructions: Prednisone (By mouth), Azithromycin (By mouth), COPD Exacerbation , Insurance Specialist (GEN) Additional Instructions: Follow-up with pulmonary service near home Follow-up appointments: If there is not an appointment listed below, please call your physician and schedule a follow-up appointment. If you have congestive heart failure and your symptoms return, make an appointment with your physician. Medication List: Carry an up to date list of medications you are taking at all time. We have given you an updated medication list including any new medications that you have been prescribed. Please provide that list to your primary provider Symptoms: If your condition changes or you experience any of the following symptoms, notify your physician immediately: Unusual or worsening pain, fever, persistent nausea and vomiting, bleeding, increase in swelling (especially in your legs), sudden weight gain, extreme dizziness, chest pain, increased drainage or redness from a wound or incision. Go to the emergency department if you experience a problem with breathing. Weights: If you have a history of swelling or shortness of breath, weigh yourself daily and notify your physician if you have a weight gain of two or more pounds in one day or 5 or more pounds in a week. If you experience any of the warning signs for stroke: Sudden numbness or weakness of the face, arm or leg; especially on one side of the body, sudden confusion, trouble speaking or understanding, sudden trouble seeing in one or both eyes, sudden trouble walking, dizziness, loss of balance or coordination, sudden sever headache with no cause; Call 911 or go to the emergency room. Stroke is a medical emergency. Some risk factors for stroke: Age, cigarette smoking, diabetes, excessive alcohol consumption, family history , high blood pressure, overweight, physical inactivity, prior stroke, heart attack, diagnosis of carotid artery stenosis or other artery disease. If you smoke, STOP: Smoking or tobacco use significantly increases your risk of heart and lung disease. Your chance of disease greatly increases if you continue to smoke. For more information, call the [place] tobacco quit line for smoking cessation NOW ( ) Referrals: Marilyn Rojas CNP [Primary Care Provider] - 08/09/17 8:15 am (You were given the soonest appointment avalible. If you have questions on concerns please call the office at the number above. Thank you. ) Prescriptions: Azithromycin 250 mg PO DAILY #7 tablet predniSONE [PredniSONE] 10 mg PO DAILY #40 tablet
[2017-07-29 08:39] LABS: Mycoplasma pneumoniae IgG 0.12 U/L (<=0.09)
== END 2017-07-28 13:40 | disposition home or self-care (01) ==
LOC: EMEROO 15:50 → 3BNU 15:50
PROVIDERS: ADMIT Internal Medicine; ATTEND Registered Nurse

== ENCOUNTER 2017-09-09 15:51 | Inpatient (IN) ==
[2017-09-09] MEDS ORDERED: Ipratropium/Albuterol Neb 3 ML IH ONE (16:07)
[2017-09-09] MEDS ORDERED: Azithromycin 500 MG in D5% in Water 250 ML IVPB ONE (16:07)
[2017-09-09] MEDS ORDERED: cefTRIAXone 1,000 MG in Water for inj. (sterile) 20 ML 10 ML IVP ONE (16:07)
[2017-09-09] MEDS ORDERED: methylPREDNISolone 125 MG/2 ML VIAL IVP ONE (16:07)
--- NOTE | 2017-09-09 16:15 | Emergency Department Note ---
Disposition Clinical Impression: Acute exacerbation of chronic obstructive airways disease Pneumonia Qualifiers: Pneumonia type: due to unspecified organism Laterality: bilateral Lung location : lower lobe of lung Qualified Code(s): J18.1 - Lobar pneumonia, unspecified organism Disposition: Admitted As Inpatient Condition: Fair Instructions: Chronic Obstructive Pulmonary Disease (ED) Referrals: Marilyn Rojas CNP [Primary Care Provider] - Forms: ED Satisfaction Letter SOB HPI - General Chief Complaint: ED Shortness of Breath/Dyspnea Stated Complaint: PHYLLIS Time Seen by Provider: 09/09/17 15:56 Source: patient Limitations: no limitations Nursing Notes Reviewed: Yes Vital Signs Reviewed: Yes - History of Present Illness This is a 57 year-old male with history of COPD on 4L home O2 who presents with dyspnea, which he describes as a chronic problem, recently worse. He was admitted to [facility] a week or two ago with PNA and COPD exacerbation, discharged 3 -4 days ago. Since then, he has had worsening dyspnea, associated with nonproductive cough, weakness, chest tightness, and palpitations. He denies any associated fever, leg pain, or swelling. He was seen at [facility] yesterday, diagnosed with pneumonia, and discharged with an antibiotic prescription, but hasn't filled it yet. He denies any history of heart disease, DVT, or PE. Pt Subjective Complaint: shortness of breath Onset (ago): week(s) Context: recent illness Severity: moderate Consistency/Duration: gradually worsening Improves with: nothing Worsens with: nothing Known history of: COPD Associated symptoms: Reports: chest pain, cough, wheezing, palpitations, diaphoresis. Denies: fever, sputum production, lower extremity pain, hemoptysis Treatment prior to arrival: none Cough present: Yes Cough Description: Non-Productive Sputum production: No Sputum Amount: None - Related Data Home oxygen amount: 4 liters Home Medications Medication Instructions Recorded Confirmed Albuterol Sulfate [Albuterol 2 puff IH Q4H PRN 07/25/17 07/25/17 Inhaler] Budesonide Neb [Pulmicort Neb] 0.5 mg IH BID 07/25/17 07/25/17 Docusate [Colace] 100 mg PO BID 07/25/17 07/25/17 Ipratropium/Albuterol Neb [Duoneb] 3 ml IH Q4H 07/25/17 07/25/17 Ketorolac Tromethamine 10 mg PO Q6H PRN 07/25/17 07/25/17 Oxygen 4 l NS AD 07/25/17 07/25/17 Polyethylene Glycol 3350 17 gm PO DAILY PRN 07/25/17 07/25/17 Roflumilast [Daliresp] 500 mcg PO DAILY 07/25/17 07/25/17 Tiotropium [place] [Spiriva 2 puff IH DAILY 07/25/17 07/25/17 Respimat] Previous Rx's Medication Instructions Recorded Azithromycin 250 mg PO DAILY #7 tablet 07/28/17 GuaiFENesin ER [Mucinex] 600 mg PO BID tbbp.12hr 07/28/17 predniSONE [PredniSONE] 10 mg PO DAILY #40 tablet 07/28/17 Allergies Allergy/AdvReac Type Severity Reaction Status Date / Time No Known Allergies Allergy Verified 09/09/17 15:52 All systems ED: reviewed and negative except as stated. Constitutional: Reports: weakness (generalized) Cardiovascular: Reports: as per HPI, chest pain, palpitations, edema (feels "puffy") Respiratory: Reports: cough, dyspnea, wheezes. Denies: hemoptysis, sputum production Gastrointestinal: Denies: abdominal pain, vomiting, diarrhea Neurological: Denies: headache, weakness (no focal) Past Medical History - Past Medical History Medical history: Reports: COPD Psychiatric history: Reports: no psych history - Social History Smoking Status: Former smoker Smokeless Tobacco Status: No Alcohol use: Reports: none Drug use: Reports: marijuana Physical Exam - General Limitations: no limitations General appearance: alert, in no apparent distress - Head Head exam: atraumatic, normocephalic - Eye Eye exam: Present: normal appearance - ENT ENT exam: normal exam - Neck Neck exam: Present: normal inspection - Chest Chest inspection: Present: normal inspection - Respiratory Respiratory exam: Present: respiratory distress (mild to moderate), wheezes, other (bilateral rhonchi, crackles left base) - Abdominal Exam Abdominal exam: Present: soft, Non-Tender. Absent: distention - Extremities Exam Extremities exam: Present: normal inspection. Absent: pedal edema, calf tenderness - Neurological Exam Neurological exam: Present: alert, oriented X3. Absent: motor sensory deficit - Psychiatric Psychiatric exam: Present: normal affect, normal mood - Skin Skin exam: Present: warm, dry, intact. Absent: diaphoresis Course - Reevaluation(s) Reevaluation #1: On recheck, patient remains tachy, but HR has come down since arrival. No significant clinical change. We will admit for COPD exacerbation and possible pneumonia. Time: 17:12 - Consultations Consultation #1: Discussed case with mid-level Bhaskar Paniagua for admission. Time: 17:29 Vital Signs Temperature 98.1 F 09/09/17 15:52 Pulse Rate 153 09/09/17 15:52 Respiratory Rate 24 09/09/17 15:52 Blood Pressure 134/92 09/09/17 15:52 O2 Sat by Pulse Oximetry 92 09/09/17 15:52 Temperature 98.1 F 09/09/17 15:52 Pulse Rate 153 09/09/17 15:52 Respiratory Rate 20 09/09/17 16:48 Blood Pressure 134/92 09/09/17 15:52 O2 Sat by Pulse Oximetry 94 09/09/17 16:48 Oxygen Delivery Oxygen Delivery Nasal Cannula Shortness of Breath/Dyspnea - Lab Data Result diagrams: 09/09/17 16:22 09/09/17 16:22 Lab Results 09/09/17 09/09/17 09/09/17 Range/Units 16:22 16:22 16:22 WBC 7.0 (4.3-11.1) K/mcL RBC 4.33 (4.19-5.50) M/mcL Hgb 13.1 (12.9-16.9) g/dL Hct 38.5 (37.5-50.1) % MCV 88.9 (83.0-100.0) fL MCH 30.3 (28.0-33.3) pg MCHC 34.0 (31.6-35.5) g/dL RDW 15.4 H (11.5-14.5) % Plt Count 366 (140-400) K/mcL MPV 9.2 L (9.4-12.4) fL Immature Gran % 0.4 (0-4) % Seg Neutrophils % 78.7 % Lymphocytes % 16.7 % Monocytes % 3.0 % Eosinophils % 0.9 % Basophils % 0.3 % Neutrophils # 5.5 (1.6-8.9) K/mcL Lymphocytes # 1.2 (0.6-4.6) K/mcL Monocytes # 0.2 (0.0-1.3) K/mcL Eosinophils # 0.1 (0.0-0.6) K/mcL Basophils # 0.0 (0.0-0.2) K/mcL PT (9.4-12.1) Seconds INR APTT (26.0-36.0) Seconds D-Dimer (0-500) ng/mLFEU Sample Site ABG pH (7.32-7.45) pH Units ABG pCO2 (35-45) mmHg ABG pO2 (85-104) mmHg ABG HCO3 (21-27) mEq/L ABG Total CO2 (20-26) mEq/L ABG O2 Saturation (95-98) % ABG Base Excess (-2 to 3) mEq/L Ezequiel Test O2 Delivery Device Inspired O2 (1-15=lpm [id number]=%) Sodium 137 (136-145) mEq/L Potassium 4.1 (3.5-5.1) mEq/L Chloride 97 L (98-107) mEq/L Carbon Dioxide 31 H (23-29) mEq/L BUN 10 (6-20) mg/dL Creatinine 0.68 L (0.70-1.30) mg/dL Est GFR ( Amer) > 60 (> 60) Est GFR (Non-Af Amer) > 60 (> 60) BUN/Creatinine Ratio 15 (6-26) Glucose 152 H (70-105) mg/dL Calculated Osmolality 286 (280-300) Lactic Acid 1.7 (0.5-2.2) mmol/L Calcium 10.1 (8.6-10.3) mg/dL Troponin I < 0.03 (< 0.04) ng/mL B-Natriuretic Peptide (Less than 100) pg/mL 09/09/17 09/09/17 09/09/17 Range/Units 16:22 16:22 16:22 WBC (4.3-11.1) K/mcL RBC (4.19-5.50) M/mcL Hgb (12.9-16.9) g/dL Hct (37.5-50.1) % MCV (83.0-100.0) fL MCH (28.0-33.3) pg MCHC (31.6-35.5) g/dL RDW (11.5-14.5) % Plt Count (140-400) K/mcL MPV (9.4-12.4) fL Immature Gran % (0-4) % Seg Neutrophils % % Lymphocytes % % Monocytes % % Eosinophils % % Basophils % % Neutrophils # (1.6-8.9) K/mcL Lymphocytes # (0.6-4.6) K/mcL Monocytes # (0.0-1.3) K/mcL Eosinophils # (0.0-0.6) K/mcL Basophils # (0.0-0.2) K/mcL PT 11.6 (9.4-12.1) Seconds INR 1.1 APTT 28.0 (26.0-36.0) Seconds D-Dimer 468 (0-500) ng/mLFEU Sample Site ABG pH (7.32-7.45) pH Units ABG pCO2 (35-45) mmHg ABG pO2 (85-104) mmHg ABG HCO3 (21-27) mEq/L ABG Total CO2 (20-26) mEq/L ABG O2 Saturation (95-98) % ABG Base Excess (-2 to 3) mEq/L Ezequiel Test O2 Delivery Device Inspired O2 (1-15=lpm kq14-133=%) Sodium (136-145) mEq/L Potassium (3.5-5.1) mEq/L Chloride (98-107) mEq/L Carbon Dioxide (23-29) mEq/L BUN (6-20) mg/dL Creatinine (0.70-1.30) mg/dL Est GFR ( Amer) (> 60) Est GFR (Non-Af Amer) (> 60) BUN/Creatinine Ratio (6-26) Glucose (70-105) mg/dL Calculated Osmolality (280-300) Lactic Acid (0.5-2.2) mmol/L Calcium (8.6-10.3) mg/dL Troponin I (< 0.04) ng/mL B-Natriuretic Peptide 31 (Less than 100) pg/mL 09/09/17 Range/Units 16:50 WBC (4.3-11.1) K/mcL RBC (4.19-5.50) M/mcL Hgb (12.9-16.9) g/dL Hct (37.5-50.1) % MCV (83.0-100.0) fL MCH (28.0-33.3) pg MCHC (31.6-35.5) g/dL RDW (11.5-14.5) % Plt Count (140-400) K/mcL MPV (9.4-12.4) fL Immature Gran % (0-4) % Seg Neutrophils % % Lymphocytes % % Monocytes % % Eosinophils % % Basophils % % Neutrophils # (1.6-8.9) K/mcL Lymphocytes # (0.6-4.6) K/mcL Monocytes # (0.0-1.3) K/mcL Eosinophils # (0.0-0.6) K/mcL Basophils # (0.0-0.2) K/mcL PT (9.4-12.1) Seconds INR APTT (26.0-36.0) Seconds D-Dimer (0-500) ng/mLFEU Sample Site L Radial ABG pH 7.43 (7.32-7.45) pH Units ABG pCO2 48 H (35-45) mmHg ABG pO2 86 (85-104) mmHg ABG HCO3 32 H (21-27) mEq/L ABG Total CO2 34 H (20-26) mEq/L ABG O2 Saturation 97 (95-98) % ABG Base Excess 7 H (-2 to 3) mEq/L Ezequiel Test Positive O2 Delivery Device Cannula Inspired O2 36.0 (1-15=lpm ew12-810=%) Sodium (136-145) mEq/L Potassium (3.5-5.1) mEq/L Chloride (98-107) mEq/L Carbon Dioxide (23-29) mEq/L BUN (6-20) mg/dL Creatinine (0.70-1.30) mg/dL Est GFR ( Amer) (> 60) Est GFR (Non-Af Amer) (> 60) BUN/Creatinine Ratio (6-26) Glucose (70-105) mg/dL Calculated Osmolality (280-300) Lactic Acid (0.5-2.2) mmol/L Calcium (8.6-10.3) mg/dL Troponin I (< 0.04) ng/mL B-Natriuretic Peptide (Less than 100) pg/mL - Radiology Data Radiology results reviewed: Yes I reviewed the patient's radiology results. CXR IMPRESSION: 1. Increased reticular and airspace opacities toward the lung bases, potentially pneumonia, edema, and/or atelectasis superimposed upon previously seen scarring. 2. Pulmonary vascular congestion and/or chronic interstitial change. 3. Emphysema. - EKG Data EKG attestation: Yes I reviewed and interpreted this EKG. EKG results narrative: Sinus tach at 122. Occasional PVCs. No acute ischemic findings. EKG shows normal: Reports: sinus rhythm Rate: Reports: tachycardia Rhythm: Reports: PVC's Ectopy: Reports: PVC When compared to previous EKG there are: previous EKG unavailable
[2017-09-09 16:39] LABS: Basophils % 0.3 %; Eosinophils # 0.1 K/mcL (0.0-0.6); Eosinophils % 0.9 %; Hematocrit 38.5 % (37.5-50.1); Hemoglobin 13.1 g/dL (12.9-16.9); Immature Granulocytes % 0.4 % (0-4); Lymphocytes # 1.2 K/mcL (0.6-4.6); Lymphocytes % 16.7 %; Mean Corpuscular Hemoglobin 30.3 pg (28.0-33.3); Mean Corpuscular Volume 88.9 fL (83.0-100.0); Mean Platelet Volume 9.2 fL (9.4-12.4); Monocytes # 0.2 K/mcL (0.0-1.3); Neutrophils # 5.5 K/mcL (1.6-8.9); Platelet Count 366 K/mcL (140-400); Red Blood Count 4.33 M/mcL (4.19-5.50); Red Cell Distribution Width 15.4 % (11.5-14.5); Segmented Neutrophils % 78.7 %
[2017-09-09 16:45] LABS: INR 1.1; Prothrombin Time 11.6 Seconds (9.4-12.1)
[2017-09-09 16:55] LABS: ABG Base Excess 7 mEq/L (-2 to 3); ABG HCO3 32 mEq/L (21-27); ABG Oxygen Saturation 97 % (95-98); ABG PCO2 48 mmHg (35-45); ABG PH 7.43 pH Units (7.32-7.45); ABG PO2 86 mmHg (85-104); ABG TCO2 34 mEq/L (20-26)
[2017-09-09 17:00] LABS: BUN/Creatinine Ratio 15 (6-26); Blood Urea Nitrogen 10 mg/dL (6-20); Calcium 10.1 mg/dL (8.6-10.3); Carbon Dioxide 31 mEq/L (23-29); Chloride 97 mEq/L (98-107); Glucose 152 mg/dL (70-105); Osmolality,Calculated 286 (280-300); Potassium 4.1 mEq/L (3.5-5.1); Sodium 137 mEq/L (136-145); Troponin I < 0.03 ng/mL (< 0.04); eGFR For African Americans > 60 (> 60); eGFR For Non-African Americans > 60 (> 60)
[2017-09-09] MEDS ORDERED: Naloxone 0.4 MG/ML INJ IVP PRN (20:40)
[2017-09-09] MEDS ORDERED: Albuterol 2.5 MG/3 ML NEBULIZER IH PRN (20:44)
--- NOTE | 2017-09-09 21:22 | Internal Med History&Physical ---
Date of Encounter: 09/10/17 Time of Encounter: 21:00 Internal Medicine - H&P: HPI Chief complaint: Shortness of breath Admitted From: Emergency Dept Plans for Post Hospital Care: Home History of present illness: Mr. Blanchard is a 57 year old male with history of COPD who presented to the ED this afternoon with complaint of shortness of breath and cough. He states that he has had these symptoms for months, and has been admitted several times for COPD exacerbations and recently for pneumonia. He notes that he was at [facility] in [place] for one week and was just released several days ago - was admitted and treated for pneumonia. He thinks he felt better the day he was discharged but now is again so short of breath he can barely ambulate. He is on 4L home o2 and has been compliant with using it. He complains of chest tightness which is worse with coughing. He denies lower extremity pain or edema. He has been coughing up occasional white sputum, states that it is hard to cough anything up. Past Med Surg Social Fam HX - Past Medical History Medical history: COPD Psychiatric history: no psych history - Social History Smoking Status: Former smoker Smokeless Tobacco Status: No Alcohol use: none Drug use: marijuana - Family History Father Hx Family Cancer: Yes (colon) Internal Medicine - H&P: Meds Albuterol Sulfate [Albuterol Inhaler] 2 puff IH Q4H PRN 07/25/17 [History] Budesonide Neb [Pulmicort Neb] 0.5 mg IH BID 07/25/17 [History] Docusate [Colace] 100 mg PO BID 07/25/17 [History] Ipratropium/Albuterol Neb [Duoneb] 3 ml IH Q4H 07/25/17 [History] Ketorolac Tromethamine 10 mg PO Q6H PRN 07/25/17 [History] Oxygen 4 l NS AD 07/25/17 [History] Polyethylene Glycol 3350 17 gm PO DAILY PRN 07/25/17 [History] Roflumilast [Daliresp] 500 mcg PO DAILY 07/25/17 [History] Tiotropium [place] [Spiriva Respimat] 2 puff IH DAILY 07/25/17 [History] Azithromycin 250 mg PO DAILY #7 tablet 07/28/17 [Rx] GuaiFENesin ER [Mucinex] 600 mg PO BID tbbp.12hr 07/28/17 [Rx] predniSONE [PredniSONE] 10 mg PO DAILY #40 tablet 07/28/17 [Rx] 3 Allergy/AdvReac Type Severity Reaction Status Date / Time No Known Allergies Allergy Verified 09/09/17 15:52 All Systems PM: A 10-system review of systems was performed and is negative for pertinent findings except as documented above in the HPI. - Constitutional Constitutional: fatigue, no fever(s) - Cardiovascular Cardiovascular ROS IM: dyspnea, dyspnea on exertion - Respiratory Respiratory: dyspnea, dyspnea on exertion - Gastrointestinal Gastrointestinal: constipation, no abdominal pain - Genitourinary Genitourinary ROS male: no urinary frequency - Musculoskeletal Musculoskeletal ROS IM: no numbness, no stiffness - Neurological Neurological ROS: no abnormal speech, no behavioral changes - Constitutional Vitals: Temp Pulse Resp BP Pulse Ox 97.8 F 77 20 123/75 92 09/09/17 21:01 09/09/17 21:01 09/09/17 21:01 09/09/17 21:01 09/09/17 21:01 General appearance: Present: A&O X 3, no acute distress - Head Head exam: Present: atraumatic - Eye Eye exam: Present: EOMI, sclera anicteric - ENT ENT exam: Present: mucous membranes moist - Neck Neck exam general surgery: Present: supple - Respiratory Respiratory exam: Present: decreased breath sounds, wheezes - Cardiovascular Cardiovascular exam: Present: RRR. Absent: gallop, rubs, systolic murmur - GI/Abdominal GI/Abdominal exam: Present: soft. Absent: distended, tenderness - Extremities Exam Extremities exam: Absent: pedal edema - Neurological Exam Neurological exam: Present: no focal deficits - Psychiatric Psychiatric exam: Present: normal affect, normal mood - Skin Skin exam: Absent: rash Internal Med - H&P Results - Labs CBC & Chem 7: 09/09/17 16:22 09/09/17 16:22 - Assessment and plan (1) Acute exacerbation of chronic obstructive airways disease Current Visit: Yes Status: Acute Assessment and plan: Patient with severe COPD on 4L continuous, complains of worsening shortness of breath. - PO prednisone - Scheduled duonebs and PRN albuterol nebs - Ceftriaxone (2) Acute and chronic respiratory failure Current Visit: No Status: Acute Assessment and plan: Secondary to COPD and possible pneumonia. Given unclear history of pneumonia and unclear CXR, will obtain noncontrast CT to further eval the lungs. On 4L home O2, will continue, goal O2 sat of ~90%. Qualifiers: Respiratory failure complication: hypoxia Qualified Code(s): J96.21 - Acute and chronic respiratory failure with hypoxia (3) Pneumonia Current Visit: Yes Status: Acute Assessment and plan: CT consistent with multifocal pneumonia. Concern for possible aspiration based on CT read - Zosyn to cover for HCAP and aspiration - Blood cultures pending - Attempt to obtain records from [facility] for more info on recent hospitalization - Check swallow eval Qualifiers: Pneumonia type: due to unspecified organism Laterality: bilateral Lung location: lower lobe of lung Qualified Code(s): J18.1 - Lobar pneumonia, unspecified organism (4) Tachycardia Current Visit: Yes Status: Acute Assessment and plan: Heart rate reportedly 150s-160s in ED, normal on my evaluation. Will monitor on telemetry. No history of atrial fibrillation. - Time Spent With Patient Total time spent is greater than 50% in coordination of care (as documented) at patient's floor/unit and/or counseling patient: Greater than 35 minutes
[2017-09-09] MEDS: Budesonide/Formoterol 160/4.5 MDI IH SCH (22:45)
[2017-09-09] MEDS: Ipratropium/Albuterol Neb 3 ML IH SCH (22:45)
[2017-09-10] MEDS: Piperacillin/Tazobactam 3.375 GM in 0.9 % Sodium Chloride Mini Bag 100 ML IVPB SCH ×3 (01:19→16:01)
[2017-09-10] MEDS: Ipratropium/Albuterol Neb 3 ML IH SCH ×4 (04:35→22:55)
[2017-09-10] MEDS: predniSONE 20 MG TABLET PO SCH (08:17)
[2017-09-10] MEDS: (Roflumilast [Daliresp] 500 MCG PO SCH (08:20)
[2017-09-10] MEDS ORDERED: cefTRIAXone 1,000 MG in Water for inj. (sterile) 20 ML 10 ML IVP SCH (09:00)
[2017-09-10] MEDS: Budesonide/Formoterol 160/4.5 MDI IH SCH ×2 (10:10→22:54)
--- NOTE | 2017-09-10 11:24 | Event Note ---
Date of Encounter: 09/10/17 Time of Encounter: 11:23 Patient seen earlier today. He was receiving breathing treatments. He feels better overall. Does appear to have aspiration pneumonia. On IV antibiotics. Will consult speech therapy for evaluation. Continue bronchodilators.
[2017-09-10] MEDS ORDERED: Acetaminophen 325 MG TABLET PO PRN (11:33)
[2017-09-10] MEDS: OXYCODONE Oral CONC 10 MG/0.5 ML ORAL.SYG SL PRN (11:42)
[2017-09-10] MEDS: *HR* Heparin 5,000 UNIT/ML VIAL SQ SCH (17:27)
[2017-09-10] MEDS: *HR* HYDROcodone/Acet 5/325 mg TABLET PO PRN (20:32)
[2017-09-10] MEDS: Budesonide/Formoterol 80/4.5 MDI IH SCH (22:42)
[2017-09-11] MEDS: Piperacillin/Tazobactam 3.375 GM in 0.9 % Sodium Chloride Mini Bag 100 ML IVPB SCH ×3 (01:13→16:44)
[2017-09-11] MEDS: OXYCODONE Oral CONC 10 MG/0.5 ML ORAL.SYG SL PRN (01:32)
[2017-09-11] MEDS: Ipratropium/Albuterol Neb 3 ML IH SCH ×4 (03:26→23:00)
[2017-09-11] MEDS: *HR* Heparin 5,000 UNIT/ML VIAL SQ SCH ×2 (06:48→16:46)
[2017-09-11] MEDS: predniSONE 20 MG TABLET PO SCH (08:45)
[2017-09-11] MEDS: (Roflumilast [Daliresp] 500 MCG PO SCH (08:46)
[2017-09-11] MEDS: Budesonide/Formoterol 80/4.5 MDI IH SCH (10:23)
[2017-09-11] MEDS: Budesonide/Formoterol 160/4.5 MDI IH SCH ×2 (10:25→22:59)
--- NOTE | 2017-09-11 13:16 | Internal Med Progress Note ---
Date of Encounter: 09/11/17 Time of Encounter: 11:20 - Assessment and plan (1) Acute and chronic respiratory failure Current Visit: Yes Status: Acute Assessment and plan: Continue O2 supplementation. Treat underlying pneumonia and COPD exacerbation. Currently on 4 L nasal cannula. Qualifiers: Respiratory failure complication: hypoxia Qualified Code(s): J96.21 - Acute and chronic respiratory failure with hypoxia (2) Acute exacerbation of chronic obstructive airways disease Current Visit: Yes Status: Acute Assessment and plan: Continue bronchodilators, steroids. Continue O2 supplementation. Continue to treat underlying aspiration pneumonia. (3) Pneumonia Current Visit: Yes Status: Acute Assessment and plan: Patient being treated for aspiration pneumonia with Zosyn. WBC count is normal. Aspiration precautions. Follow speech therapy recommendations. Follow sputum culture results. Qualifiers: Pneumonia type: aspiration pneumonia Aspiration pneumonia type: due to gastric secretions Laterality: bilateral Lung location: lower lobe of lung Qualified Code(s): J69.0 - Pneumonitis due to inhalation of food and vomit (4) Tachycardia Current Visit: Yes Status: Resolved (5) Essential hypertension Current Visit: Yes Status: Chronic Assessment and plan: Blood pressure is well controlled. (6) DVT prophylaxis Current Visit: Yes Status: Acute Assessment and plan: On subcutaneous heparin - Time Spent With Patient Total time spent is greater than 50% in coordination of care (as documented) at patient's floor/unit and/or counseling patient: - Subjective Interval history: Patient continues to have shortness of breath and wheezing. Feels weak and tired overall. Denies any chest pain. He is concerned about his bouts of recurrent pneumonia. - Constitutional Vitals: Temp Pulse Resp BP Pulse Ox 98.3 F 92 16 116/73 93 09/11/17 06:35 09/11/17 06:35 09/11/17 10:26 09/11/17 06:35 09/11/17 10:26 General appearance: Present: mild distress, A&O X 3, no acute distress, answers questions appropriately - Neck Neck exam general surgery: Present: supple, trachea midline. Absent: lymphadenopathy - Respiratory Respiratory exam: Present: prolonged expiratory phase, rhonchi, wheezes. Absent : accessory muscle use, rales - Cardiovascular Cardiovascular exam: Present: RRR, +S1, +S2. Absent: diastolic murmur, gallop, rubs, systolic murmur - GI/Abdominal GI/Abdominal exam: Present: normal bowel sounds, soft, no peritoneal signs. Absent: distended, tenderness - Extremities Exam Extremities exam: Present: warm, radial pulses palpable and symmetrical. Absent : calf tenderness, cyanotic, pedal edema - Neurological Exam Neurological exam: Present: CN II-XII intact, oriented X3, no focal deficits. Absent: facial droop, speech deficit - Skin Skin exam: Present: dry, intact Internal Medicine: Result - Labs CBC & Chem 7: 09/09/17 16:22 09/09/17 16:22 - ABG Interpretation ABG results: ABG ABG pH 7.43 pH Units (7.32-7.45) 09/09/17 16:50 ABG pCO2 48 mmHg (35-45) H 09/09/17 16:50 ABG pO2 86 mmHg (85-104) 09/09/17 16:50 ABG O2 Saturation 97 % (95-98) 09/09/17 16:50 PT/INR, D-dimer PT 11.6 Seconds (9.4-12.1) 09/09/17 16:22 D-Dimer 468 ng/mLFEU (0-500) 09/09/17 16:22 Consult Discharge Plan - Plan Referrals: Marilyn Rojas [employer] [Primary Care Provider] -
[2017-09-11] MEDS ORDERED: Bisacodyl 10 MG RECTAL SUPPOSITORY RC STA (15:25)
[2017-09-11] MEDS: *HR* HYDROcodone/Acet 5/325 mg TABLET PO PRN (18:14)
[2017-09-12] MEDS: Piperacillin/Tazobactam 3.375 GM in 0.9 % Sodium Chloride Mini Bag 100 ML IVPB SCH ×3 (00:04→16:59)
[2017-09-12] MEDS: Ipratropium/Albuterol Neb 3 ML IH SCH ×4 (03:55→19:54)
[2017-09-12 05:23] LABS: Basophils % 0.6 %; Eosinophils # 0.1 K/mcL (0.0-0.6); Eosinophils % 2.7 %; Hematocrit 34.3 % (37.5-50.1); Immature Granulocytes % 0.4 % (0-4); Lymphocytes # 1.4 K/mcL (0.6-4.6); Lymphocytes % 27.1 %; Mean Corpuscular HGB Conc 32.4 g/dL (31.6-35.5); Mean Corpuscular Hemoglobin 29.1 pg (28.0-33.3); Mean Corpuscular Volume 89.8 fL (83.0-100.0); Mean Platelet Volume 9.4 fL (9.4-12.4); Monocytes # 0.4 K/mcL (0.0-1.3); Monocytes % 8.1 %; Neutrophils # 3.2 K/mcL (1.6-8.9); Platelet Count 322 K/mcL (140-400); Red Blood Count 3.82 M/mcL (4.19-5.50); Red Cell Distribution Width 15.1 % (11.5-14.5); Segmented Neutrophils % 61.1 %
[2017-09-12 05:25] LABS: Hemoglobin 11.1 g/dL (12.9-16.9)
[2017-09-12 05:41] LABS: BUN/Creatinine Ratio 32 (6-26); Blood Urea Nitrogen 19 mg/dL (6-20); Calcium 9.1 mg/dL (8.6-10.3); Carbon Dioxide 33 mEq/L (23-29); Chloride 96 mEq/L (98-107); Glucose 105 mg/dL (70-105); Osmolality,Calculated 283 (280-300); Potassium 3.7 mEq/L (3.5-5.1); Sodium 135 mEq/L (136-145); eGFR For African Americans > 60 (> 60); eGFR For Non-African Americans > 60 (> 60)
--- NOTE | 2017-09-12 05:50 | Electrocardiograph Report ---
[place] [address] Test Date: 2017-09-09 Pat Name: Jason Blanchard Department: 102 Room: 2N8 Gender: M Superintendent Refuse Disposal: Ekp : 1960 Requested By: Stu Disla Order Number: [id number] Reading MD: Roni Mcbride Measurements Intervals Britt Rate: 122 P: 63 GA: 141 QRS: 3 QRSD: 96 T: 34 QT: 292 QTc: 365 Interpretive Statements SINUS TACHYCARDIA WITH OCCASIONAL VENTRICULAR PREMATURE COMPLEXES ABNORMAL RHYTHM ECG Electronically Signed On 09-12-2017 5:48:53 EDT by Roni Mcbride
[2017-09-12] MEDS: *HR* Heparin 5,000 UNIT/ML VIAL SQ SCH ×2 (06:12→17:02)
[2017-09-12] MEDS ORDERED: Ipratropium/Albuterol Neb 3 ML IH PRN (08:59)
[2017-09-12] MEDS ORDERED: methylPREDNISolone 125 MG/2 ML VIAL IVP ONE (09:07)
--- NOTE | 2017-09-12 09:14 | Internal Med Progress Note ---
<Bob Saeed - Last Filed: 09/12/17 09:20> Date of Encounter: 09/12/17 Time of Encounter: 09:03 - Assessment and plan (1) Pneumonia Current Visit: Yes Status: Acute Assessment and plan: Patient being treated for aspiration pneumonia with Zosyn (Day 3). Add Levaquin (Day 1) to cover for HAP. WBC count is normal. Sputum culture shows no growth to date. Speech therapy ruled out aspiration. Recommended regular diet. Aspiration precautions. Encourage incentive spirometry 07/27/17 Echo reveals 55%, mild RV diastolic dysfunction Start Lasix 40mg IV BID due to rales on exam Qualifiers: Pneumonia type: aspiration pneumonia Aspiration pneumonia type: due to gastric secretions Laterality: bilateral Lung location: lower lobe of lung Qualified Code(s): J69.0 - Pneumonitis due to inhalation of food and vomit (2) Acute and chronic respiratory failure Current Visit: Yes Status: Acute Assessment and plan: Continue 4L humidified O2 supplementation, bronchodilators, and syptomatic care. Treat underlying pneumonia and COPD exacerbation. Qualifiers: Respiratory failure complication: hypoxia Qualified Code(s): J96.21 - Acute and chronic respiratory failure with hypoxia (3) Acute exacerbation of chronic obstructive airways disease Current Visit: Yes Status: Acute Assessment and plan: Continue bronchodilators, changed to scheduled dosing. Continue Mucinex, added Mucomyst. Steroids changed from Prednisone to Solumedrol IV due to wosening SOB Continue O2 supplementation. Continue to treat underlying pneumonia Repeat CXR and consider pulmonology consult if patient fails to improve with current treatment. (4) Tachycardia Current Visit: Yes Status: Resolved Assessment and plan: Resolved Heart rate reportedly 150s-160s in ED, normal on my evaluation. Will monitor on telemetry. No history of atrial fibrillation. (5) DVT prophylaxis Current Visit: Yes Status: Acute Assessment and plan: On subcutaneous heparin (6) Essential hypertension Current Visit: Yes Status: Chronic Assessment and plan: Blood pressure is well controlled. - Time Spent With Patient Total time spent is greater than 50% in coordination of care (as documented) at patient's floor/unit and/or counseling patient: - Subjective Interval history: Patient seen and examined. He reports SOB this AM, non-productive cough, and swelling in his face. Patient request breathing treatment this AM and remains on 4L supplemental O2 via NC. - Constitutional Vitals: Temp Pulse Resp BP Pulse Ox 98.3 F 79 17 107/70 96 09/12/17 06:55 09/12/17 06:55 09/12/17 06:55 09/12/17 06:55 09/12/17 06:55 General appearance: Present: cooperative, mild distress, A&O X 3, pleasant, no acute distress, answers questions appropriately - Head Head exam: Present: atraumatic, normocephalic - Eye Eye exam: Present: PERRL, conjuntiva pink, sclera anicteric Pupils: Present: PERRL - ENT ENT exam: Present: mucous membranes dry, normal oropharynx - Neck Neck exam general surgery: Present: supple, trachea midline. Absent: lymphadenopathy - Respiratory Respiratory exam: Present: rales. Absent: accessory muscle use, CTAB, respiratory distress, rhonchi, wheezes - Cardiovascular Cardiovascular exam: Present: RRR, +S1, +S2. Absent: diastolic murmur, gallop, rubs, systolic murmur - GI/Abdominal GI/Abdominal exam: Present: guarding, normal bowel sounds, soft, no peritoneal signs. Absent: distended, tenderness - Extremities Exam Extremities exam: Present: pedal edema (1+), warm, radial pulses palpable and symmetrical. Absent: calf tenderness, cyanotic - Back Exam Back exam: Present: normal inspection. Absent: tenderness - Neurological Exam Neurological exam: Present: CN II-XII intact, oriented X3, no focal deficits. Absent: pronater drift, facial droop, speech deficit - Psychiatric Psychiatric exam: Present: normal affect, normal mood - Skin Skin exam: Present: dry, intact, normal color, warm Internal Medicine: Result - Labs CBC & Chem 7: 09/12/17 05:03 09/12/17 05:03 Labs: Short CBC 09/12/17 Range/Units 05:03 WBC 5.2 (4.3-11.1) K/mcL Hgb 11.1 L D (12.9-16.9) g/dL Hct 34.3 L (37.5-50.1) % Plt Count 322 (140-400) K/mcL Neutrophils # 3.2 (1.6-8.9) K/mcL BMP 09/12/17 05:03 Sodium 135 L Potassium 3.7 Chloride 96 L Carbon Dioxide 33 H BUN 19 Creatinine 0.59 L Glucose 105 Calcium 9.1 - ABG Interpretation ABG results: ABG ABG pH 7.43 pH Units (7.32-7.45) 09/09/17 16:50 ABG pCO2 48 mmHg (35-45) H 09/09/17 16:50 ABG pO2 86 mmHg (85-104) 09/09/17 16:50 ABG O2 Saturation 97 % (95-98) 09/09/17 16:50 PT/INR, D-dimer PT 11.6 Seconds (9.4-12.1) 09/09/17 16:22 D-Dimer 468 ng/mLFEU (0-500) 09/09/17 16:22 - Pulse Oximetry Interpretation Digit-Finger Pulse Oximetry Readin (4L humidified O2) Consult Discharge Plan - Plan Referrals: Marilyn Rojas [employer] [Primary Care Provider] - <Lane Goode - Last Filed: 09/12/17 14:36> Date of Encounter: 09/12/17 - Assessment and plan (1) Acute exacerbation of chronic obstructive airways disease Current Visit: Yes Status: Acute (2) DVT prophylaxis Current Visit: Yes Status: Acute (3) Acute and chronic respiratory failure Current Visit: Yes Status: Acute Qualifiers: Respiratory failure complication: hypoxia Qualified Code(s): J96.21 - Acute and chronic respiratory failure with hypoxia (4) Pneumonia Current Visit: Yes Status: Acute Qualifiers: Pneumonia type: aspiration pneumonia Aspiration pneumonia type: due to gastric secretions Laterality: bilateral Lung location: lower lobe of lung Qualified Code(s): J69.0 - Pneumonitis due to inhalation of food and vomit (5) Tachycardia Current Visit: Yes Status: Resolved (6) Essential hypertension Current Visit: Yes Status: Chronic - Time Spent With Patient Total time spent is greater than 50% in coordination of care (as documented) at patient's floor/unit and/or counseling patient: - Constitutional Vitals: Temp Pulse Resp BP Pulse Ox 98.3 F 79 18 107/70 94 09/12/17 06:55 09/12/17 06:55 09/12/17 11:24 09/12/17 06:55 09/12/17 11:24 Internal Medicine: Result - Labs CBC & Chem 7: 09/12/17 05:03 09/12/17 05:03 Labs: Short CBC 09/12/17 Range/Units 05:03 WBC 5.2 (4.3-11.1) K/mcL Hgb 11.1 L D (12.9-16.9) g/dL Hct 34.3 L (37.5-50.1) % Plt Count 322 (140-400) K/mcL Neutrophils # 3.2 (1.6-8.9) K/mcL BMP 09/12/17 05:03 Sodium 135 L Potassium 3.7 Chloride 96 L Carbon Dioxide 33 H BUN 19 Creatinine 0.59 L Glucose 105 Calcium 9.1 - ABG Interpretation ABG results: ABG ABG pH 7.43 pH Units (7.32-7.45) 09/09/17 16:50 ABG pCO2 48 mmHg (35-45) H 09/09/17 16:50 ABG pO2 86 mmHg (85-104) 09/09/17 16:50 ABG O2 Saturation 97 % (95-98) 09/09/17 16:50 PT/INR, D-dimer PT 11.6 Seconds (9.4-12.1) 09/09/17 16:22 D-Dimer 468 ng/mLFEU (0-500) 09/09/17 16:22 - Attending Attestation acute on chronic hypoxic resp failure 2ry to acute copd exacerbation due to CAP , unknown agent continue Zosyn day 3 and add levaquin solumedrol IV lasix due to congestion CXR ordered I examined this patient and my medical decision-making was reviewed with the Resident Physician. I agree with the documented findings, disposition and treatment plan as described except to the extent set forth below.
[2017-09-12] MEDS: Furosemide 40 MG/4 ML VIAL IVP SCH ×2 (09:29→21:02)
[2017-09-12] MEDS: (Roflumilast [Daliresp] 500 MCG PO SCH (09:30)
[2017-09-12] MEDS: levoFLOXacin 750 MG TABLET PO SCH (09:32)
[2017-09-12] MEDS: Budesonide/Formoterol 160/4.5 MDI IH SCH ×2 (11:22→19:53)
[2017-09-12] MEDS ORDERED: Sennosides/Docusate Sodium TABLET PO PRN (11:26)
[2017-09-12] MEDS ORDERED: Furosemide 40 MG/4 ML VIAL IVP ONE (11:38)
[2017-09-12] MEDS ORDERED: Pantoprazole 40 MG VIAL IVP ONE (11:42)
[2017-09-12] MEDS: *HR* Acetylcysteine 20% 600 MG/3 ML ORAL SYRINGE PO SCH ×2 (12:47→21:02)
[2017-09-12] MEDS: methylPREDNISolone 125 MG/2 ML VIAL IVP SCH (17:01)
[2017-09-12] MEDS: *HR* HYDROcodone/Acet 5/325 mg TABLET PO PRN (21:11)
[2017-09-13] MEDS: Ipratropium/Albuterol Neb 3 ML IH SCH ×7 (00:23→23:12)
[2017-09-13] MEDS: Piperacillin/Tazobactam 3.375 GM in 0.9 % Sodium Chloride Mini Bag 100 ML IVPB SCH ×3 (00:38→15:22)
[2017-09-13] MEDS: methylPREDNISolone 125 MG/2 ML VIAL IVP SCH ×3 (00:38→15:22)
[2017-09-13 04:10] LABS: Hematocrit 37.5 % (37.5-50.1); Hemoglobin 12.5 g/dL (12.9-16.9); Mean Corpuscular HGB Conc 33.3 g/dL (31.6-35.5); Mean Corpuscular Hemoglobin 29.2 pg (28.0-33.3); Mean Corpuscular Volume 87.6 fL (83.0-100.0); Mean Platelet Volume 9.3 fL (9.4-12.4); Platelet Count 366 K/mcL (140-400); Red Blood Count 4.28 M/mcL (4.19-5.50); Red Cell Distribution Width 14.9 % (11.5-14.5)
[2017-09-13 04:32] LABS: BUN/Creatinine Ratio 30 (6-26); Blood Urea Nitrogen 20 mg/dL (6-20); Calcium 9.9 mg/dL (8.6-10.3); Carbon Dioxide 34 mEq/L (23-29); Chloride 89 mEq/L (98-107); Glucose 207 mg/dL (70-105); Magnesium 2.3 mg/dL (1.6-2.6); Osmolality,Calculated 283 (280-300); Potassium 3.9 mEq/L (3.5-5.1); Sodium 132 mEq/L (136-145); eGFR For African Americans > 60 (> 60); eGFR For Non-African Americans > 60 (> 60)
[2017-09-13] MEDS: *HR* Heparin 5,000 UNIT/ML VIAL SQ SCH ×2 (05:43→17:44)
[2017-09-13] MEDS: Budesonide/Formoterol 160/4.5 MDI IH SCH ×2 (07:36→20:10)
[2017-09-13] MEDS ORDERED: Furosemide 40 MG/4 ML VIAL IVP ONE (09:32)
--- NOTE | 2017-09-13 09:32 | Internal Med Progress Note ---
Addendum entered and electronically signed by Bob Saeed DO 09/13/17 13:46: Correction: Sputum culture shows gram positive rods. Qualifiers: Pneumonia type: due to other aerobic Gram-positive bacteria Original Note: <Bob Saeed - Last Filed: 09/13/17 11:05> Date of Encounter: 09/13/17 Time of Encounter: 09:32 - Assessment and plan (1) Pneumonia Current Visit: Yes Status: Acute Assessment and plan: Patient being treated for pneumonia with Zosyn (Day 4) and Levaquin (Day 2) Sputum culture shows gram negative rods. Speech therapy ruled out aspiration. Recommended regular diet. Aspiration precautions. Encourage incentive spirometry 07/27/17 Echo reveals 55%, mild RV diastolic dysfunction Continue Lasix 40mg IV BID due to rales on exam, additional ott of $)mg IV given this AM Qualifiers: Pneumonia type: due to other aerobic Gram-negative bacteria Laterality: bilateral Lung location: lower lobe of lung Qualified Code(s): J15.6 - Pneumonia due to other Gram-negative bacteria (2) Acute and chronic respiratory failure Current Visit: Yes Status: Acute Assessment and plan: Continue 4L humidified O2 supplementation, bronchodilators, and syptomatic care. Treat underlying pneumonia and COPD exacerbation. Qualifiers: Respiratory failure complication: hypoxia Qualified Code(s): J96.21 - Acute and chronic respiratory failure with hypoxia (3) Acute exacerbation of chronic obstructive airways disease Current Visit: Yes Status: Acute Assessment and plan: Continue bronchodilators, changed to scheduled dosing. Continue Mucinex, added Mucomyst. Continue Solumedrol IV due to wosening SOB Continue O2 supplementation. Continue to treat underlying pneumonia Repeat CXR shows no significant interval change. Consider CTA and pulmonology consult if patient fails to improve with current treatment. (4) Tachycardia Current Visit: Yes Status: Resolved Assessment and plan: Resolved Heart rate reportedly 150s-160s in ED, normal on my evaluation. Will monitor on telemetry. No history of atrial fibrillation. (5) DVT prophylaxis Current Visit: Yes Status: Acute Assessment and plan: On subcutaneous heparin (6) Essential hypertension Current Visit: Yes Status: Chronic Assessment and plan: Blood pressure is well controlled. - Time Spent With Patient Total time spent is greater than 50% in coordination of care (as documented) at patient's floor/unit and/or counseling patient: - Subjective Interval history: Patient seen and examined. He reports SOB this AM, non-productive cough, and sputum cultures positve for gram negative rods. Patient request breathing treatment this AM and remains on 4L supplemental O2 via NC. Continue Lasix. - Constitutional Vitals: Temp Pulse Resp BP Pulse Ox 97.1 F L 69 20 119/67 98 09/13/17 07:43 09/13/17 07:43 09/13/17 07:43 09/13/17 07:43 09/13/17 07:43 General appearance: Present: cooperative, mild distress, A&O X 3, pleasant, no acute distress, answers questions appropriately - Head Head exam: Present: atraumatic, normocephalic - Eye Eye exam: Present: PERRL, conjuntiva pink, sclera anicteric Pupils: Present: PERRL - ENT ENT exam: Present: mucous membranes moist, normal oropharynx. Absent: mucous membranes dry - Neck Neck exam general surgery: Present: supple, trachea midline. Absent: lymphadenopathy - Respiratory Respiratory exam: Present: rales. Absent: accessory muscle use, decreased breath sounds, respiratory distress, rhonchi, wheezes Additional comments: barrel chest deformity - Cardiovascular Cardiovascular exam: Present: RRR, +S1, +S2. Absent: diastolic murmur, gallop, rubs, systolic murmur - GI/Abdominal GI/Abdominal exam: Present: normal bowel sounds, soft, no peritoneal signs. Absent: distended, tenderness - Extremities Exam Extremities exam: Present: warm, radial pulses palpable and symmetrical. Absent : calf tenderness, cyanotic, pedal edema - Back Exam Back exam: Present: normal inspection. Absent: tenderness - Neurological Exam Neurological exam: Present: CN II-XII intact, oriented X3, no focal deficits. Absent: pronater drift, facial droop, speech deficit - Psychiatric Psychiatric exam: Present: normal affect, normal mood - Skin Skin exam: Present: dry, intact, normal color, warm Internal Medicine: Result - Labs CBC & Chem 7: 09/13/17 03:39 09/13/17 03:39 Labs: Short CBC 09/13/17 Range/Units 03:39 WBC 6.0 (4.3-11.1) K/mcL Hgb 12.5 L (12.9-16.9) g/dL Hct 37.5 (37.5-50.1) % Plt Count 366 (140-400) K/mcL BMP 09/13/17 03:39 Sodium 132 L Potassium 3.9 Chloride 89 L Carbon Dioxide 34 H BUN 20 Creatinine 0.67 L Glucose 207 H Calcium 9.9 - ABG Interpretation ABG results: ABG ABG pH 7.43 pH Units (7.32-7.45) 09/09/17 16:50 ABG pCO2 48 mmHg (35-45) H 09/09/17 16:50 ABG pO2 86 mmHg (85-104) 09/09/17 16:50 ABG O2 Saturation 97 % (95-98) 09/09/17 16:50 PT/INR, D-dimer PT 11.6 Seconds (9.4-12.1) 09/09/17 16:22 D-Dimer 468 ng/mLFEU (0-500) 09/09/17 16:22 - Pulse Oximetry Interpretation Digit-Finger Pulse Oximetry Readin (On 4L O2 via NC) - Impressions Impressions Chest X-Ray 09/12/17 13:51 IMPRESSION: No significant interval change. D/ / John Mejias MD / John Mejias MD Interpreting Provider: John Mejias MD Consult Discharge Plan - Plan Referrals: Marilyn Rojas, O[employer] [Primary Care Provider] - <Lane Goode H - Last Filed: 09/13/17 13:52> Date of Encounter: 09/13/17 - Assessment and plan (1) Acute exacerbation of chronic obstructive airways disease Current Visit: Yes Status: Acute (2) DVT prophylaxis Current Visit: Yes Status: Acute (3) Acute and chronic respiratory failure Current Visit: Yes Status: Acute Qualifiers: Respiratory failure complication: hypoxia Qualified Code(s): J96.21 - Acute and chronic respiratory failure with hypoxia (4) Pneumonia Current Visit: Yes Status: Acute Qualifiers: Pneumonia type: due to other aerobic Gram-negative bacteria Laterality: bilateral Lung location: lower lobe of lung Qualified Code(s): J15.6 - Pneumonia due to other Gram-negative bacteria (5) Tachycardia Current Visit: Yes Status: Resolved (6) Essential hypertension Current Visit: Yes Status: Chronic - Time Spent With Patient Total time spent is greater than 50% in coordination of care (as documented) at patient's floor/unit and/or counseling patient: - Constitutional Vitals: Temp Pulse Resp BP Pulse Ox 97.9 F 83 18 113/76 94 09/13/17 12:14 09/13/17 12:14 09/13/17 12:14 09/13/17 12:14 09/13/17 12:14 Internal Medicine: Result - Labs CBC & Chem 7: 09/13/17 03:39 09/13/17 03:39 Labs: Short CBC 09/13/17 Range/Units 03:39 WBC 6.0 (4.3-11.1) K/mcL Hgb 12.5 L (12.9-16.9) g/dL Hct 37.5 (37.5-50.1) % Plt Count 366 (140-400) K/mcL BMP 09/13/17 03:39 Sodium 132 L Potassium 3.9 Chloride 89 L Carbon Dioxide 34 H BUN 20 Creatinine 0.67 L Glucose 207 H Calcium 9.9 - ABG Interpretation ABG results: ABG ABG pH 7.43 pH Units (7.32-7.45) 09/09/17 16:50 ABG pCO2 48 mmHg (35-45) H 09/09/17 16:50 ABG pO2 86 mmHg (85-104) 09/09/17 16:50 ABG O2 Saturation 97 % (95-98) 09/09/17 16:50 PT/INR, D-dimer PT 11.6 Seconds (9.4-12.1) 09/09/17 16:22 D-Dimer 468 ng/mLFEU (0-500) 09/09/17 16:22 - Impressions Impressions Chest X-Ray 09/12/17 13:51 IMPRESSION: No significant interval change. D/ / John Mejias MD / John Mejias MD Interpreting Provider: John Mejias MD - Attending Attestation acute on chronic hypoxic resp failure 2ry to acute copd exacerbation due to CAP , unknown agent continue Zosyn day 4 and levaquin day 2 solumedrol IV lasix due to congestion check resp infection panel consider CTA chest ( patient on metoprolol) I examined this patient and my medical decision-making was reviewed with the Resident Physician. I agree with the documented findings, disposition and treatment plan as described except to the extent set forth below.
[2017-09-13] MEDS: levoFLOXacin 750 MG TABLET PO SCH (09:33)
[2017-09-13] MEDS: Furosemide 40 MG/4 ML VIAL IVP SCH ×2 (09:34→17:44)
[2017-09-13] MEDS: *HR* Acetylcysteine 20% 600 MG/3 ML ORAL SYRINGE PO SCH ×2 (09:34→20:06)
[2017-09-13] MEDS: (Roflumilast [Daliresp] 500 MCG PO SCH (09:35)
[2017-09-13] MEDS ORDERED: Lactulose Oral Soln 20 GM/30 ML UDC RC ONE (09:51)
[2017-09-13] MEDS: Budesonide Neb 0.5 MG/2 ML IH SCH ×2 (11:33→20:11)
[2017-09-13] MEDS ORDERED: *HR* LORazepam 2 MG/ML VIAL IVP ONE (19:45)
[2017-09-14] MEDS: Piperacillin/Tazobactam 3.375 GM in 0.9 % Sodium Chloride Mini Bag 100 ML IVPB SCH ×3 (02:46→17:31)
[2017-09-14] MEDS: methylPREDNISolone 125 MG/2 ML VIAL IVP SCH ×3 (02:47→17:30)
[2017-09-14] MEDS: Ipratropium/Albuterol Neb 3 ML IH SCH ×5 (03:02→20:45)
[2017-09-14 05:16] LABS: Prothrombin Time 11.2 Seconds (9.4-12.1)
[2017-09-14 05:20] LABS: Hematocrit 40.3 % (37.5-50.1); Hemoglobin 13.4 g/dL (12.9-16.9); Mean Corpuscular HGB Conc 33.3 g/dL (31.6-35.5); Mean Corpuscular Hemoglobin 29.3 pg (28.0-33.3); Mean Platelet Volume 9.6 fL (9.4-12.4); Platelet Count 381 K/mcL (140-400); Red Blood Count 4.58 M/mcL (4.19-5.50); Red Cell Distribution Width 14.8 % (11.5-14.5)
[2017-09-14 05:28] LABS: BUN/Creatinine Ratio 48 (6-26); Blood Urea Nitrogen 39 mg/dL (6-20); Calcium 10.1 mg/dL (8.6-10.3); Carbon Dioxide 34 mEq/L (23-29); Chloride 89 mEq/L (98-107); Glucose 154 mg/dL (70-105); Osmolality,Calculated 288 (280-300); Potassium 3.9 mEq/L (3.5-5.1); Sodium 133 mEq/L (136-145); eGFR For African Americans > 60 (> 60); eGFR For Non-African Americans > 60 (> 60)
[2017-09-14] MEDS: *HR* Heparin 5,000 UNIT/ML VIAL SQ SCH (06:35)
[2017-09-14] MEDS: Budesonide/Formoterol 160/4.5 MDI IH SCH ×2 (07:36→20:45)
[2017-09-14] MEDS: Budesonide Neb 0.5 MG/2 ML IH SCH (07:36)
--- NOTE | 2017-09-14 09:25 | Internal Med Progress Note ---
<Bob Saeed - Last Filed: 09/14/17 09:23> Date of Encounter: 09/14/17 Time of Encounter: 09:23 - Assessment and plan (1) Pneumonia Current Visit: Yes Status: Acute Assessment and plan: Patient being treated for pneumonia with Zosyn (Day 5) and Levaquin (Day 3) Sputum culture shows gram positive rods. Respiratory panel pending Speech therapy ruled out aspiration. Recommended regular diet. Aspiration precautions. Encourage incentive spirometry 07/27/17 Echo reveals 55%, mild RV diastolic dysfunction Continue Lasix 40mg IV BID due to rales on exam, continue BiPap this AM Qualifiers: Pneumonia type: due to other aerobic Gram-negative bacteria Laterality: bilateral Lung location: lower lobe of lung Qualified Code(s): J15.6 - Pneumonia due to other Gram-negative bacteria (2) Acute and chronic respiratory failure Current Visit: Yes Status: Acute Assessment and plan: Continue 4L humidified O2 supplementation, bronchodilators, BiPap, and syptomatic care. Treat underlying pneumonia and COPD exacerbation. Qualifiers: Respiratory failure complication: hypoxia Qualified Code(s): J96.21 - Acute and chronic respiratory failure with hypoxia (3) Acute exacerbation of chronic obstructive airways disease Current Visit: Yes Status: Acute Assessment and plan: Continue bronchodilators, changed to scheduled dosing. Continue Mucinex, added Mucomyst. Continue Solumedrol IV Continue O2 supplementation and BiPap. Continue to treat underlying pneumonia Repeat CXR shows no significant interval change. Consider CTA and pulmonology consult if patient fails to improve with current treatment. (4) Tachycardia Current Visit: Yes Status: Resolved Assessment and plan: Resolved Heart rate reportedly 150s-160s in ED, normal on my evaluation. Will monitor on telemetry. No history of atrial fibrillation. (5) DVT prophylaxis Current Visit: Yes Status: Acute Assessment and plan: On subcutaneous heparin (6) Essential hypertension Current Visit: Yes Status: Chronic Assessment and plan: Blood pressure is well controlled. - Time Spent With Patient Total time spent is greater than 50% in coordination of care (as documented) at patient's floor/unit and/or counseling patient: - Subjective Interval history: Patient seen and examined while wearing Bipap. He reports feeling like he is loosing his voice this AM, non-productive cough, and had sputum cultures positive for gram positive rods. Patient reports using incentive spirometry. Continue Lasix. - Constitutional Vitals: Temp Pulse Resp BP Pulse Ox 97.4 F L 88 18 119/79 93 09/14/17 07:00 09/14/17 07:00 09/14/17 07:37 09/14/17 07:00 09/14/17 07:37 General appearance: Present: cooperative, mild distress, A&O X 3, pleasant, no acute distress, answers questions appropriately - Head Head exam: Present: atraumatic, normocephalic - Eye Eye exam: Present: PERRL, conjuntiva pink, sclera anicteric Pupils: Present: PERRL - ENT ENT exam: Present: mucous membranes dry, normal oropharynx - Neck Neck exam general surgery: Present: supple, trachea midline. Absent: lymphadenopathy - Respiratory Respiratory exam: Present: rales. Absent: accessory muscle use, CTAB, respiratory distress, rhonchi, wheezes Additional comments: On BiPap - Cardiovascular Cardiovascular exam: Present: RRR, +S1, +S2. Absent: diastolic murmur, gallop, rubs, systolic murmur - GI/Abdominal GI/Abdominal exam: Present: normal bowel sounds, soft, no peritoneal signs. Absent: distended, tenderness - Extremities Exam Extremities exam: Present: warm, radial pulses palpable and symmetrical. Absent : calf tenderness, cyanotic, pedal edema - Back Exam Back exam: Present: normal inspection. Absent: tenderness - Neurological Exam Neurological exam: Present: CN II-XII intact, oriented X3, no focal deficits. Absent: pronater drift, facial droop, speech deficit - Psychiatric Psychiatric exam: Present: normal affect, normal mood - Skin Skin exam: Present: dry, intact, normal color, warm Internal Medicine: Result - Labs CBC & Chem 7: 09/14/17 04:56 09/14/17 04:56 Labs: Short CBC 09/14/17 Range/Units 04:56 WBC 9.7 D (4.3-11.1) K/mcL Hgb 13.4 (12.9-16.9) g/dL Hct 40.3 (37.5-50.1) % Plt Count 381 (140-400) K/mcL BMP 09/14/17 04:56 Sodium 133 L Potassium 3.9 Chloride 89 L Carbon Dioxide 34 H BUN 39 H Creatinine 0.82 Glucose 154 H Calcium 10.1 - ABG Interpretation ABG results: ABG ABG pH 7.43 pH Units (7.32-7.45) 09/09/17 16:50 ABG pCO2 48 mmHg (35-45) H 09/09/17 16:50 ABG pO2 86 mmHg (85-104) 09/09/17 16:50 ABG O2 Saturation 97 % (95-98) 09/09/17 16:50 PT/INR, D-dimer PT 11.2 Seconds (9.4-12.1) 09/14/17 04:56 D-Dimer 468 ng/mLFEU (0-500) 09/09/17 16:22 - Pulse Oximetry Interpretation Digit-Finger Pulse Oximetry Readin Actions taken: placed on BiPAP Consult Discharge Plan - Plan Referrals: Marilyn Rojas CNP [Primary Care Provider] - <Lane Goode - Last Filed: 09/14/17 10:20> Date of Encounter: 09/14/17 - Assessment and plan (1) Acute exacerbation of chronic obstructive airways disease Current Visit: Yes Status: Acute (2) DVT prophylaxis Current Visit: Yes Status: Acute (3) Acute and chronic respiratory failure Current Visit: Yes Status: Acute Qualifiers: Respiratory failure complication: hypoxia Qualified Code(s): J96.21 - Acute and chronic respiratory failure with hypoxia (4) Pneumonia Current Visit: Yes Status: Acute Qualifiers: Pneumonia type: due to other aerobic Gram-negative bacteria Laterality: bilateral Lung location: lower lobe of lung Qualified Code(s): J15.6 - Pneumonia due to other Gram-negative bacteria (5) Tachycardia Current Visit: Yes Status: Resolved (6) Essential hypertension Current Visit: Yes Status: Chronic - Time Spent With Patient Total time spent is greater than 50% in coordination of care (as documented) at patient's floor/unit and/or counseling patient: - Constitutional Vitals: Temp Pulse Resp BP Pulse Ox 97.4 F L 88 18 119/79 93 09/14/17 07:00 09/14/17 07:00 09/14/17 07:37 09/14/17 07:00 09/14/17 07:37 Internal Medicine: Result - Labs CBC & Chem 7: 09/14/17 04:56 09/14/17 04:56 Labs: Short CBC 09/14/17 Range/Units 04:56 WBC 9.7 D (4.3-11.1) K/mcL Hgb 13.4 (12.9-16.9) g/dL Hct 40.3 (37.5-50.1) % Plt Count 381 (140-400) K/mcL BMP 09/14/17 04:56 Sodium 133 L Potassium 3.9 Chloride 89 L Carbon Dioxide 34 H BUN 39 H Creatinine 0.82 Glucose 154 H Calcium 10.1 - ABG Interpretation ABG results: ABG ABG pH 7.43 pH Units (7.32-7.45) 09/09/17 16:50 ABG pCO2 48 mmHg (35-45) H 09/09/17 16:50 ABG pO2 86 mmHg (85-104) 09/09/17 16:50 ABG O2 Saturation 97 % (95-98) 09/09/17 16:50 PT/INR, D-dimer PT 11.2 Seconds (9.4-12.1) 09/14/17 04:56 D-Dimer 468 ng/mLFEU (0-500) 09/09/17 16:22 - Attending Attestation acute on chronic hypoxic resp failure 2ry to acute copd exacerbation due to CAP , unknown agent worse continue Zosyn day 5 and levaquin day 3 solumedrol IV lasix due to congestion check resp infection panel CTA chest ( patient on metoprolol) I examined this patient and my medical decision-making was reviewed with the Resident Physician. I agree with the documented findings, disposition and treatment plan as described except to the extent set forth below.
[2017-09-14] MEDS ORDERED: Isovue-370 500 ML INFUS..BTL IV ONE (09:37)
[2017-09-14] MEDS: Furosemide 40 MG/4 ML VIAL IVP SCH ×2 (09:46→17:30)
[2017-09-14] MEDS: levoFLOXacin 750 MG TABLET PO SCH (09:46)
[2017-09-14] MEDS: *HR* Acetylcysteine 20% 600 MG/3 ML ORAL SYRINGE PO SCH ×2 (09:46→21:30)
[2017-09-14] MEDS ORDERED: *HR* Enoxaparin 80 MG/0.8 ML SYRINGE SQ SCH (11:45)
[2017-09-14] MEDS: (Roflumilast [Daliresp] 500 MCG PO SCH (12:52)
[2017-09-14 14:47] LABS: Adenovirus Not Detected (Not Detect); Bordetella Pertussis Not Detected (Not Detect); Chlamydophila pneumoniae Not Detected (Not Detect); Coronavirus 229E Not Detected (Not Detect); Coronavirus HKU1 Not Detected (Not Detect); Coronavirus NL63 Not Detected (Not Detect); Coronavirus OC43 Not Detected (Not Detect); Human Metapneumovirus Not Detected (Not Detect); Human Rhinovirus/Enterovirus Not Detected (Not Detect); Influenza A Subtype 2009 H1 Not Detected (Not Detect); Influenza A Untypeable Not Detected (Not Detect); Influenza B Not Detected (Not Detect); Mycoplasma pneumoniae Not Detected (Not Detect); Parainfluenza Virus 1 Not Detected (Not Detect); Parainfluenza Virus 2 Not Detected (Not Detect); Parainfluenza Virus 3 Not Detected (Not Detect); Parainfluenza Virus 4 Not Detected (Not Detect); Respiratory Syncytial Virus Not Detected (Not Detect)
[2017-09-15] MEDS: Ipratropium/Albuterol Neb 3 ML IH SCH ×7 (00:24→23:39)
[2017-09-15] MEDS: Piperacillin/Tazobactam 3.375 GM in 0.9 % Sodium Chloride Mini Bag 100 ML IVPB SCH ×4 (01:51→23:35)
[2017-09-15] MEDS: *HR* Rivaroxaban 15 MG TABLET PO SCH ×3 (01:51→23:15)
[2017-09-15] MEDS: methylPREDNISolone 125 MG/2 ML VIAL IVP SCH ×4 (01:51→23:15)
[2017-09-15] MEDS: OXYCODONE Oral CONC 10 MG/0.5 ML ORAL.SYG SL PRN ×3 (05:15→23:17)
[2017-09-15 05:19] LABS: Mean Corpuscular HGB Conc 33.3 g/dL (31.6-35.5); Mean Corpuscular Hemoglobin 28.8 pg (28.0-33.3); Mean Corpuscular Volume 86.5 fL (83.0-100.0); Mean Platelet Volume 9.4 fL (9.4-12.4); Platelet Count 356 K/mcL (140-400); Red Blood Count 4.16 M/mcL (4.19-5.50); Red Cell Distribution Width 14.9 % (11.5-14.5)
[2017-09-15 05:30] LABS: INR 1.2
[2017-09-15 05:45] LABS: BUN/Creatinine Ratio 42 (6-26); Blood Urea Nitrogen 30 mg/dL (6-20); Calcium 9.9 mg/dL (8.6-10.3); Carbon Dioxide 34 mEq/L (23-29); Chloride 89 mEq/L (98-107); Glucose 189 mg/dL (70-105); Osmolality,Calculated 287 (280-300); Potassium 3.8 mEq/L (3.5-5.1); Sodium 133 mEq/L (136-145); eGFR For African Americans > 60 (> 60); eGFR For Non-African Americans > 60 (> 60)
[2017-09-15] MEDS: Budesonide/Formoterol 160/4.5 MDI IH SCH ×2 (07:51→19:44)
--- NOTE | 2017-09-15 09:03 | Internal Med Progress Note ---
<Bob Saeed - Last Filed: 09/15/17 09:14> Date of Encounter: 09/15/17 Time of Encounter: 09:01 - Assessment and plan (1) Pneumonia Current Visit: Yes Status: Acute Assessment and plan: Patient being treated for pneumonia with Zosyn (Day 6) and Levaquin (Day 4) Sputum culture shows gram positive rods. Respiratory panel negative Speech therapy ruled out aspiration. Recommended regular diet. Aspiration precautions. Encourage incentive spirometry 07/27/17 Echo reveals 55%, mild RV diastolic dysfunction Continue Lasix 40mg IV BID due to rales on exam, continue BiPap this AM Consult pulmonology for possible bronchoscopy Qualifiers: Pneumonia type: due to other aerobic Gram-negative bacteria Laterality: bilateral Lung location: lower lobe of lung Qualified Code(s): J15.6 - Pneumonia due to other Gram-negative bacteria (2) Acute exacerbation of chronic obstructive airways disease Current Visit: Yes Status: Acute Assessment and plan: Continue bronchodilators, scheduled dosing. Continue Mucinex, and Mucomyst. Continue Solumedrol IV Continue O2 supplementation and BiPap. Continue to treat underlying pneumonia Repeat CXR shows no significant interval change. (3) Acute and chronic respiratory failure Current Visit: Yes Status: Acute Assessment and plan: Continue 4L humidified O2 supplementation, bronchodilators, BiPap, and syptomatic care. Treat underlying pneumonia and COPD exacerbation. Qualifiers: Respiratory failure complication: hypoxia Qualified Code(s): J96.21 - Acute and chronic respiratory failure with hypoxia (4) Essential hypertension Current Visit: Yes Status: Chronic Assessment and plan: Blood pressure is well controlled. (5) Tachycardia Current Visit: Yes Status: Resolved Assessment and plan: Resolved Will monitor on telemetry. No history of atrial fibrillation. (6) Pulmonary embolism Current Visit: Yes Status: Acute Assessment and plan: CTA revealed right upper lobe pulmonary embolus and nodular infiltrate in the left upper lobe posterolaterally. Patient started on Xarelto 15mg PO BID for 21 days, then 20mg daily for 3 month duration Qualifiers: Pulmonary embolism type: other Chronicity: acute Acute cor pulmonale presence: without acute cor pulmonale Qualified Code(s): I26.99 - Other pulmonary embolism without acute cor pulmonale - Time Spent With Patient Total time spent is greater than 50% in coordination of care (as documented) at patient's floor/unit and/or counseling patient: - Subjective Interval history: Patient seen and examined resting comfortably in bed. He reports feeling slightly improved today. Continue Lasix. Patient reports using incentive spirometry and BiPap at night. Patient had negative CT brain last PM. - Constitutional Vitals: Temp Pulse Resp BP Pulse Ox 97.8 F 77 16 124/75 97 09/15/17 06:45 09/15/17 06:45 09/15/17 07:54 09/15/17 06:45 09/15/17 07:54 General appearance: Present: cooperative, mild distress, A&O X 3, pleasant, no acute distress, answers questions appropriately - Head Head exam: Present: atraumatic, normocephalic - Eye Eye exam: Present: PERRL, conjuntiva pink, sclera anicteric Pupils: Present: PERRL - ENT ENT exam: Present: mucous membranes moist, normal oropharynx - Neck Neck exam general surgery: Present: supple, trachea midline. Absent: lymphadenopathy - Respiratory Respiratory exam: Present: rales. Absent: accessory muscle use, CTAB, respiratory distress, rhonchi, wheezes Additional comments: On 4L O2 via NC - Cardiovascular Cardiovascular exam: Present: RRR, +S1, +S2. Absent: diastolic murmur, gallop, rubs, systolic murmur - GI/Abdominal GI/Abdominal exam: Present: normal bowel sounds, soft, no peritoneal signs. Absent: distended, tenderness - Extremities Exam Extremities exam: Present: warm, radial pulses palpable and symmetrical. Absent : calf tenderness, cyanotic, pedal edema - Back Exam Back exam: Present: normal inspection. Absent: tenderness - Neurological Exam Neurological exam: Present: CN II-XII intact, oriented X3, no focal deficits. Absent: pronater drift, facial droop, speech deficit - Psychiatric Psychiatric exam: Present: normal affect, normal mood - Skin Skin exam: Present: dry, intact, normal color, warm Internal Medicine: Result - Labs CBC & Chem 7: 09/15/17 04:58 09/15/17 04:58 Labs: Short CBC 09/15/17 Range/Units 04:58 WBC 9.0 (4.3-11.1) K/mcL Hgb 12.0 L (12.9-16.9) g/dL Hct 36.0 L (37.5-50.1) % Plt Count 356 (140-400) K/mcL BMP 09/15/17 04:58 Sodium 133 L Potassium 3.8 Chloride 89 L Carbon Dioxide 34 H BUN 30 H Creatinine 0.72 Glucose 189 H Calcium 9.9 - ABG Interpretation ABG results: ABG ABG pH 7.43 pH Units (7.32-7.45) 09/09/17 16:50 ABG pCO2 48 mmHg (35-45) H 09/09/17 16:50 ABG pO2 86 mmHg (85-104) 09/09/17 16:50 ABG O2 Saturation 97 % (95-98) 09/09/17 16:50 PT/INR, D-dimer PT 13.0 Seconds (9.4-12.1) H 09/15/17 04:58 D-Dimer 468 ng/mLFEU (0-500) 09/09/17 16:22 - Pulse Oximetry Interpretation Digit-Finger Pulse Oximetry Readin (On 4L O2 via NC) - Impressions Impressions Chest CTA 09/14/17 09:37 IMPRESSION: Right upper lobe pulmonary embolus. Nodular infiltrate in the left upper lobe posterolaterally. Recommend follow-up CT chest to confirm resolution in 1 month The findings were discussed with the patient's nurse Moira De Souza on 09/14/2017 at 11:35 a.m. D/ / Gagan Kowalski MD / Gagan Kowalski MD Interpreting Provider: Gagan Kowalski MD Head CT 09/14/17 21:56 IMPRESSION: No acute intracranial abnormality. Extensive nonspecific subcortical and periventricular white matter hypoattenuating foci. This may represent chronic white matter microangiopathic ischemic changes. In a patient of this age, demyelinating disease is also in the differential. D/ / Bryant Pace MD / Bryant Pace MD Interpreting Provider: Bryant Pace MD Consult Discharge Plan - Plan Referrals: Marilyn Rojas [facility] [Primary Care Provider] - Prescriptions: Rivaroxaban [Xarelto] 1 dose PO AD 30 Days #1 pack <Lane Goode H - Last Filed: 09/15/17 13:14> Date of Encounter: 09/15/17 - Assessment and plan (1) Acute exacerbation of chronic obstructive airways disease Current Visit: Yes Status: Acute (2) Acute and chronic respiratory failure Current Visit: Yes Status: Acute Qualifiers: Respiratory failure complication: hypoxia Qualified Code(s): J96.21 - Acute and chronic respiratory failure with hypoxia (3) Pneumonia Current Visit: Yes Status: Acute Qualifiers: Pneumonia type: due to other aerobic Gram-negative bacteria Laterality: bilateral Lung location: lower lobe of lung Qualified Code(s): J15.6 - Pneumonia due to other Gram-negative bacteria (4) Tachycardia Current Visit: Yes Status: Resolved (5) Essential hypertension Current Visit: Yes Status: Chronic (6) Pulmonary embolism Current Visit: Yes Status: Acute Qualifiers: Pulmonary embolism type: other Chronicity: acute Acute cor pulmonale presence: without acute cor pulmonale Qualified Code(s): I26.99 - Other pulmonary embolism without acute cor pulmonale - Time Spent With Patient Total time spent is greater than 50% in coordination of care (as documented) at patient's floor/unit and/or counseling patient: - Constitutional Vitals: Temp Pulse Resp BP Pulse Ox 97.8 F 94 18 116/64 95 09/15/17 10:56 09/15/17 10:56 09/15/17 12:16 09/15/17 10:56 09/15/17 12:16 Internal Medicine: Result - Labs CBC & Chem 7: 09/15/17 04:58 09/15/17 04:58 Labs: Short CBC 09/15/17 Range/Units 04:58 WBC 9.0 (4.3-11.1) K/mcL Hgb 12.0 L (12.9-16.9) g/dL Hct 36.0 L (37.5-50.1) % Plt Count 356 (140-400) K/mcL BMP 09/15/17 04:58 Sodium 133 L Potassium 3.8 Chloride 89 L Carbon Dioxide 34 H BUN 30 H Creatinine 0.72 Glucose 189 H Calcium 9.9 - ABG Interpretation ABG results: ABG ABG pH 7.43 pH Units (7.32-7.45) 09/09/17 16:50 ABG pCO2 48 mmHg (35-45) H 09/09/17 16:50 ABG pO2 86 mmHg (85-104) 09/09/17 16:50 ABG O2 Saturation 97 % (95-98) 09/09/17 16:50 PT/INR, D-dimer PT 13.0 Seconds (9.4-12.1) H 09/15/17 04:58 D-Dimer 468 ng/mLFEU (0-500) 09/09/17 16:22 - Impressions Impressions Head CT 09/14/17 21:56 IMPRESSION: No acute intracranial abnormality. Extensive nonspecific subcortical and periventricular white matter hypoattenuating foci. This may represent chronic white matter microangiopathic ischemic changes. In a patient of this age, demyelinating disease is also in the differential. D/ / Bryant Pace MD / Bryant Pace MD Interpreting Provider: Bryant Pace MD - Attending Attestation acute on chronic hypoxic resp failure 2ry to acute copd exacerbation due to CAP , unknown agent and pulmonary emboli with volume overload Xarelto started continue Zosyn day 6 and levaquin day 4 solumedrol IV lasix due to congestion (hold triamterene and HCTZ) resp infection panel negative CTA chest Showed:Right upper lobe pulmonary embolus. Nodular infiltrate in the left upper lobe posterolaterally. Pulmonary service consulted , recommendations appreciated I examined this patient and my medical decision-making was reviewed with the Resident Physician. I agree with the documented findings, disposition and treatment plan as described except to the extent set forth below.
[2017-09-15] MEDS: *HR* Acetylcysteine 20% 600 MG/3 ML ORAL SYRINGE PO SCH ×2 (09:19→23:17)
[2017-09-15] MEDS: Furosemide 40 MG/4 ML VIAL IVP SCH ×2 (09:19→17:37)
[2017-09-15] MEDS: levoFLOXacin 750 MG TABLET PO SCH (09:20)
[2017-09-15] MEDS: (Roflumilast [Daliresp] 500 MCG PO SCH (09:21)
--- NOTE | 2017-09-15 11:48 | Pulmonology Consult Note ---
Date of Encounter: 09/15/17 Time of Encounter: 15:00 Assessment and Plan (1) Acute and chronic respiratory failure Current Visit: Yes Status: Acute This patient has multiple reasons for his condition is not improving as one would like to see. Reviewed his CAT scan personally ENT has significant emphysema and on top of that he has pulmonary embolism with worsening of her oxygenation and ventilation. I have told him he needs to quit smoking completely and otherwise he has been appropriately treated. As far as bronchoscopy there are few considerations mainly the patient is on anticoagulation and there is risk of bleeding and also worsening of his COPD. I have explained to the patient is condition and I expect he will have prolonged hospitalization and recovery due to his advanced lung disease as well as superimposed with pulmonary embolism. Patient will need outpatient workup for COPD such as pulmonary function test. I expect prognosis would be poor if continue smoking tobacco. Thank you for consultation, please call for any questions. Qualifiers: Respiratory failure complication: hypoxia Qualified Code(s): J96.21 - Acute and chronic respiratory failure with hypoxia (2) Pulmonary embolism Current Visit: Yes Status: Acute Qualifiers: Pulmonary embolism type: other Chronicity: acute Acute cor pulmonale presence: without acute cor pulmonale Qualified Code(s): I26.99 - Other pulmonary embolism without acute cor pulmonale History of Present Illness Consult date: 09/15/17 Requesting physician: Lane Goode Reason for consult: COPD, pulmonary embolism Chief complaint: Dyspnea History of present illness: This is 57-year-old male with significant history of COPD and smoking tobacco was recently discharged from the hospital and recently has diagnosis of pulmonary embolism and condition has not improved and pulmonary was consulted for evaluation. Patient stated he is not feeling good and has continued to have dyspnea with productive cough as well as wheezing. Patient has been on bronchodilators and systemic steroid without significant improvement according to the patient. He denies any fever or chills and he has no hemoptysis. Patient has generalized weakness. Past Med Surg Social Fam HX - Past Medical History Medical history: COPD Psychiatric history: no psych history - Social History Smoking Status: Former smoker Smokeless Tobacco Status: No Alcohol use: none Drug use: marijuana - Family History Father History Unknown: Yes Living Status: Age at : 70 Cause of : Colon CA Hx Family Cancer: Yes (colon) Medications and Allergies Albuterol Sulfate [Albuterol Inhaler] 2 puff IH Q4H PRN 07/25/17 [History] Budesonide Neb [Pulmicort Neb] 0.5 mg IH BID 07/25/17 [History] Docusate [Colace] 100 mg PO BID 07/25/17 [History] Ipratropium/Albuterol Neb [Duoneb] 3 ml IH Q4H 07/25/17 [History] Oxygen 4 l NS AD 07/25/17 [History] Polyethylene Glycol 3350 17 gm PO DAILY PRN 07/25/17 [History] Roflumilast [Daliresp] 500 mcg PO DAILY 07/25/17 [History] Tiotropium Wrights [Spiriva Respimat] 2 puff IH DAILY 07/25/17 [History] GuaiFENesin ER [Mucinex] 600 mg PO BID tbbp.12hr 07/28/17 [Rx] predniSONE [PredniSONE] 10 mg PO DAILY #40 tablet 07/28/17 [Rx] Metoprolol [Lopressor] 25 mg PO BID 09/10/17 [History] Mometasone/Formoterol [Dulera 200 Mcg/5 Mcg Inhaler] 2 puff IH BID 09/10/17 [ History] Triamterene/HCTZ 37.5/25mg [Dyazide] 1 tab PO DAILY 09/10/17 [History] Umeclidinium Wrights [Incruse Ellipta] 62.5 mcg IH DAILY 09/10/17 [History] Rivaroxaban [Xarelto] 1 dose PO AD 30 Days #1 pack 09/14/17 [Rx] 3 Allergy/AdvReac Type Severity Reaction Status Date / Time No Known Allergies Allergy Verified 09/09/17 15:52 All Systems: The remainder of the systems were reviewed and are negative Physical Examination Vital Signs: Vital Signs, Last 4 Hours Temp Pulse Resp BP Pulse Ox 09/15/17 10:56 97.8 F 94 18 116/64 95 09/15/17 09:32 93 09/15/17 07:54 16 97 General appearance: appears uncomfortable Eyes: nonicteric ENT: oropharynx moist Neck: supple Effort: mildly labored Inspection: hyperextended Auscultation: bilateral: diminished breath sounds Percussion: bilateral: not dull Cardiovascular: regular rate and rhythm Gastrointestinal: normoactive bowel sounds, non-distended Extremities: no cyanosis, edema normal mental status, non-focal exam depressed Results - Laboratory Findings CBC and BMP: 09/15/17 04:58 09/15/17 04:58 ABG ABG pH 7.43 pH Units (7.32-7.45) 09/09/17 16:50 ABG pCO2 48 mmHg (35-45) H 09/09/17 16:50 ABG pO2 86 mmHg (85-104) 09/09/17 16:50 ABG O2 Saturation 97 % (95-98) 09/09/17 16:50 PT/INR, D-dimer PT 13.0 Seconds (9.4-12.1) H 09/15/17 04:58 D-Dimer 468 ng/mLFEU (0-500) 09/09/17 16:22 Abnormal lab findings: Abnormal lab results RBC 4.16 M/mcL (4.19-5.50) L 09/15/17 04:58 Hgb 12.0 g/dL (12.9-16.9) L 09/15/17 04:58 Hct 36.0 % (37.5-50.1) L 09/15/17 04:58 RDW 14.9 % (11.5-14.5) H 09/15/17 04:58 PT 13.0 Seconds (9.4-12.1) H 09/15/17 04:58 ABG pCO2 48 mmHg (35-45) H 09/09/17 16:50 ABG HCO3 32 mEq/L (21-27) H 09/09/17 16:50 ABG Total CO2 34 mEq/L (20-26) H 09/09/17 16:50 ABG Base Excess 7 mEq/L (-2 to 3) H 09/09/17 16:50 Sodium 133 mEq/L (136-145) L 09/15/17 04:58 Chloride 89 mEq/L (98-107) L 09/15/17 04:58 Carbon Dioxide 34 mEq/L (23-29) H 09/15/17 04:58 BUN 30 mg/dL (6-20) H 09/15/17 04:58 BUN/Creatinine Ratio 42 (6-26) H 09/15/17 04:58 Glucose 189 mg/dL (70-105) H 09/15/17 04:58 - Microbiology Findings Microbiology Findings: Microbiology, Last 48 Hours 09/11/17 18:20 Sputum Culture - Preliminary Sputum Gram Positive Rods - Diagnostic Findings CT scan - chest: report reviewed, image reviewed - Clinical Findings Intake & Output: Intake & Output 09/14/17 09/15/17 09/15/17 23:59 07:59 15:59 Intake Total 340 / 340 100 / 100 480 / 480 Output Total 725 / 725 500 / 500 Balance -385 / -385 100 / 100 -20 / -20 Weight 81.8 kg Consult Discharge Plan - Plan Referrals: Marilyn Rojas, [facility] [Primary Care Provider] - Prescriptions: Rivaroxaban [Xarelto] 1 dose PO AD 30 Days #1 pack
[2017-09-15] MEDS ORDERED: Lactulose Oral Soln 20 GM/30 ML UDC PO ONE (14:28)
[2017-09-16] MEDS: Ipratropium/Albuterol Neb 3 ML IH SCH ×6 (03:45→23:21)
[2017-09-16 04:02] LABS: Hematocrit 35.8 % (37.5-50.1); Hemoglobin 11.9 g/dL (12.9-16.9); Mean Corpuscular HGB Conc 33.2 g/dL (31.6-35.5); Mean Corpuscular Hemoglobin 29.2 pg (28.0-33.3); Mean Corpuscular Volume 87.7 fL (83.0-100.0); Mean Platelet Volume 9.7 fL (9.4-12.4); Platelet Count 358 K/mcL (140-400); Red Blood Count 4.08 M/mcL (4.19-5.50); Red Cell Distribution Width 14.8 % (11.5-14.5)
[2017-09-16 04:24] LABS: BUN/Creatinine Ratio 31 (6-26); Blood Urea Nitrogen 27 mg/dL (6-20); Calcium 9.4 mg/dL (8.6-10.3); Carbon Dioxide 32 mEq/L (23-29); Chloride 87 mEq/L (98-107); Glucose 234 mg/dL (70-105); Osmolality,Calculated 281 (280-300); Sodium 129 mEq/L (136-145); eGFR For African Americans > 60 (> 60); eGFR For Non-African Americans > 60 (> 60)
[2017-09-16] MEDS: Budesonide/Formoterol 160/4.5 MDI IH SCH ×2 (07:47→21:12)
[2017-09-16] MEDS: *HR* Rivaroxaban 15 MG TABLET PO SCH ×2 (09:39→21:12)
[2017-09-16] MEDS: levoFLOXacin 750 MG TABLET PO SCH (09:39)
[2017-09-16] MEDS: Furosemide 40 MG/4 ML VIAL IVP SCH ×2 (09:40→16:19)
[2017-09-16] MEDS: Piperacillin/Tazobactam 3.375 GM in 0.9 % Sodium Chloride Mini Bag 100 ML IVPB SCH (09:40)
[2017-09-16] MEDS: *HR* Acetylcysteine 20% 600 MG/3 ML ORAL SYRINGE PO SCH ×2 (09:40→21:12)
[2017-09-16] MEDS: (Roflumilast [Daliresp] 500 MCG PO SCH (09:40)
[2017-09-16] MEDS: methylPREDNISolone 125 MG/2 ML VIAL IVP SCH (09:40)
[2017-09-16] MEDS: OXYCODONE Oral CONC 10 MG/0.5 ML ORAL.SYG SL PRN ×2 (10:25→16:27)
[2017-09-16] MEDS: *HR* HYDROcodone/Acet 5/325 mg TABLET PO PRN ×2 (12:39→18:51)
--- NOTE | 2017-09-16 13:07 | Internal Med Progress Note ---
Date of Encounter: 09/16/17 Time of Encounter: 13:05 - Assessment and plan (1) Acute exacerbation of chronic obstructive airways disease Current Visit: Yes Status: Acute Assessment and plan: acute on chronic hypoxic resp failure 2ry to acute copd exacerbation due to CAP (unknown agent) in combination with acute pulmonary emboli with volume overload Xarelto continue Zosyn day 7 and levaquin day 5 solumedrol IV lasix due to congestion (hold triamterene and HCTZ) resp infection panel negative CTA chest Showed:Right upper lobe pulmonary embolus. Nodular infiltrate in the left upper lobe posterolaterally. (2) Acute and chronic respiratory failure Current Visit: Yes Status: Acute Assessment and plan: Continue 4L humidified O2 supplementation, bronchodilators, BiPap, and syptomatic care. Qualifiers: Respiratory failure complication: hypoxia Qualified Code(s): J96.21 - Acute and chronic respiratory failure with hypoxia (3) Pneumonia Current Visit: Yes Status: Acute Assessment and plan: Patient being treated for pneumonia Sputum culture shows gram positive rods likely normal carlos. Speech therapy ruled out aspiration. Recommended regular diet. Aspiration precautions. Encourage incentive spirometry 07/27/17 Echo reveals 55%, mild RV diastolic dysfunction Continue Lasix 40mg IV Qualifiers: Pneumonia type: due to other aerobic Gram-negative bacteria Laterality: bilateral Lung location: lower lobe of lung Qualified Code(s): J15.6 - Pneumonia due to other Gram-negative bacteria (4) Tachycardia Current Visit: Yes Status: Resolved Assessment and plan: Resolved Will monitor on telemetry. No history of atrial fibrillation. (5) Essential hypertension Current Visit: Yes Status: Chronic Assessment and plan: Blood pressure is well controlled. (6) Pulmonary embolism Current Visit: Yes Status: Acute Assessment and plan: CTA revealed right upper lobe pulmonary embolus and nodular infiltrate in the left upper lobe posterolaterally. Patient started on Xarelto 15mg PO BID for 21 days, then 20mg daily Qualifiers: Pulmonary embolism type: other Chronicity: acute Acute cor pulmonale presence: without acute cor pulmonale Qualified Code(s): I26.99 - Other pulmonary embolism without acute cor pulmonale - Time Spent With Patient Total time spent is greater than 50% in coordination of care (as documented) at patient's floor/unit and/or counseling patient: - Subjective Interval history: Still feeling short of breath, very congested, denies any chest pain or abdominal pain, no fevers or chills, no diarrhea or dysuria - Constitutional Vitals: Temp Pulse Resp BP Pulse Ox 98.6 F 68 15 122/81 95 09/16/17 07:03 09/16/17 07:03 09/16/17 07:47 09/16/17 07:03 09/16/17 07:47 General appearance: Present: cooperative, mild distress, A&O X 3, pleasant, no acute distress, answers questions appropriately - Head Head exam: Present: atraumatic, normocephalic - Eye Eye exam: Present: PERRL, conjuntiva pink, sclera anicteric Pupils: Present: PERRL - Neck Neck exam general surgery: Present: supple, trachea midline. Absent: lymphadenopathy - Respiratory Respiratory exam: Present: CTAB, rales (Diffuse crackles bilaterally). Absent: accessory muscle use, rhonchi, wheezes - Cardiovascular Cardiovascular exam: Present: RRR, +S1, +S2. Absent: diastolic murmur, gallop, rubs, systolic murmur - GI/Abdominal GI/Abdominal exam: Present: normal bowel sounds, soft, no peritoneal signs. Absent: distended, tenderness - Extremities Exam Extremities exam: Present: warm, radial pulses palpable and symmetrical. Absent : calf tenderness, cyanotic, pedal edema - Neurological Exam Neurological exam: Present: CN II-XII intact, oriented X3, no focal deficits. Absent: pronater drift, facial droop, speech deficit - Skin Skin exam: Present: dry, intact Internal Medicine: Result - Labs CBC & Chem 7: 09/16/17 03:22 09/16/17 03:22 Labs: Short CBC 09/16/17 Range/Units 03:22 WBC 8.1 (4.3-11.1) K/mcL Hgb 11.9 L (12.9-16.9) g/dL Hct 35.8 L (37.5-50.1) % Plt Count 358 (140-400) K/mcL BMP 09/16/17 03:22 Sodium 129 L Potassium 4.0 Chloride 87 L Carbon Dioxide 32 H BUN 27 H Creatinine 0.86 Glucose 234 H Calcium 9.4 - ABG Interpretation ABG results: ABG ABG pH 7.43 pH Units (7.32-7.45) 09/09/17 16:50 ABG pCO2 48 mmHg (35-45) H 09/09/17 16:50 ABG pO2 86 mmHg (85-104) 09/09/17 16:50 ABG O2 Saturation 97 % (95-98) 09/09/17 16:50 PT/INR, D-dimer PT 13.0 Seconds (9.4-12.1) H 09/15/17 04:58 D-Dimer 468 ng/mLFEU (0-500) 09/09/17 16:22 Consult Discharge Plan - Plan Referrals: Marilyn Rojas, COMPLIANCE ATTORNEY [Primary Care Provider] - Prescriptions: Rivaroxaban [Xarelto] 1 dose PO AD 30 Days #1 pack
[2017-09-16] MEDS: MethylPREDNISolone 40 MG/ML VIAL IVP SCH (16:19)
[2017-09-16] MEDS ORDERED: Piperacillin/Tazobactam 3.375 GM in 0.9 % Sodium Chloride Mini Bag 100 ML IVPB SCH (18:00)
[2017-09-17] MEDS: MethylPREDNISolone 40 MG/ML VIAL IVP SCH ×3 (01:19→17:56)
[2017-09-17] MEDS ORDERED: Piperacillin/Tazobactam 3.375 GM in 0.9 % Sodium Chloride Mini Bag 100 ML IVPB SCH (04:00)
[2017-09-17] MEDS: OXYCODONE Oral CONC 10 MG/0.5 ML ORAL.SYG SL PRN ×3 (04:19→18:36)
[2017-09-17] MEDS: Ipratropium/Albuterol Neb 3 ML IH SCH ×5 (04:48→19:55)
[2017-09-17] MEDS: Budesonide/Formoterol 160/4.5 MDI IH SCH ×2 (08:25→19:57)
[2017-09-17] MEDS: levoFLOXacin 750 MG TABLET PO SCH (09:26)
[2017-09-17] MEDS: *HR* Acetylcysteine 20% 600 MG/3 ML ORAL SYRINGE PO SCH ×2 (09:27→21:08)
[2017-09-17] MEDS: Furosemide 40 MG/4 ML VIAL IVP SCH ×2 (09:27→17:55)
[2017-09-17] MEDS: *HR* Rivaroxaban 15 MG TABLET PO SCH ×2 (09:27→21:08)
[2017-09-17] MEDS: (Roflumilast [Daliresp] 500 MCG PO SCH (09:27)
--- NOTE | 2017-09-17 11:36 | Internal Med Progress Note ---
Date of Encounter: 09/17/17 Time of Encounter: 11:34 - Assessment and plan (1) Acute exacerbation of chronic obstructive airways disease Current Visit: Yes Status: Acute Assessment and plan: acute on chronic hypoxic resp failure 2ry to acute copd exacerbation due to CAP (unknown agent) in combination with acute pulmonary emboli with volume overload Xarelto Discontinue Zosyn at day 8 and continue levaquin day 6 solumedrol IV lasix due to congestion (hold triamterene and HCTZ) resp infection panel negative CTA chest Showed:Right upper lobe pulmonary embolus. Nodular infiltrate in the left upper lobe posterolaterally. (2) Acute and chronic respiratory failure Current Visit: Yes Status: Acute Assessment and plan: Continue 4L humidified O2 supplementation, bronchodilators, BiPap, and syptomatic care. Qualifiers: Respiratory failure complication: hypoxia Qualified Code(s): J96.21 - Acute and chronic respiratory failure with hypoxia (3) Pneumonia Current Visit: Yes Status: Acute Assessment and plan: Patient being treated for pneumonia Sputum culture shows gram positive rods likely normal carlos. Speech therapy ruled out aspiration. Recommended regular diet. Aspiration precautions. Encourage incentive spirometry 07/27/17 Echo reveals 55%, mild RV diastolic dysfunction Continue Lasix 40mg IV Qualifiers: Pneumonia type: due to other aerobic Gram-negative bacteria Laterality: bilateral Lung location: lower lobe of lung Qualified Code(s): J15.6 - Pneumonia due to other Gram-negative bacteria (4) Tachycardia Current Visit: Yes Status: Resolved Assessment and plan: Resolved Will monitor on telemetry. No history of atrial fibrillation. (5) Essential hypertension Current Visit: Yes Status: Chronic Assessment and plan: Blood pressure is well controlled. (6) Pulmonary embolism Current Visit: Yes Status: Acute Assessment and plan: CTA revealed right upper lobe pulmonary embolus and nodular infiltrate in the left upper lobe posterolaterally. Patient started on Xarelto 15mg PO BID for 21 days, then 20mg daily Qualifiers: Pulmonary embolism type: other Chronicity: acute Acute cor pulmonale presence: without acute cor pulmonale Qualified Code(s): I26.99 - Other pulmonary embolism without acute cor pulmonale (7) Constipation Current Visit: Yes Status: Acute Assessment and plan: not improving with enemas start lactulose Qualifiers: Constipation type: other constipation type Qualified Code(s): K59.09 - Other constipation - Time Spent With Patient Total time spent is greater than 50% in coordination of care (as documented) at patient's floor/unit and/or counseling patient: - Subjective Interval history: Feeling less short of breath, very congested, denies any chest pain or abdominal pain, no fevers or chills, no diarrhea or dysuria - Constitutional Vitals: Temp Pulse Resp BP Pulse Ox 97.8 F 68 18 118/74 92 09/17/17 10:37 09/17/17 10:37 09/17/17 10:37 09/17/17 10:37 09/17/17 10:37 General appearance: Present: cooperative, mild distress, A&O X 3, pleasant, no acute distress, answers questions appropriately Exam: - Head Head exam: Present: atraumatic, normocephalic - Eye Eye exam: Present: PERRL, conjuntiva pink, sclera anicteric Pupils: Present: PERRL - Neck Neck exam general surgery: Present: supple, trachea midline. Absent: lymphadenopathy - Respiratory Respiratory exam: Present: CTAB, rales (Diffuse crackles bilaterally). Absent: accessory muscle use, rhonchi, wheezes - Cardiovascular Cardiovascular exam: Present: RRR, +S1, +S2. Absent: diastolic murmur, gallop, rubs, systolic murmur - GI/Abdominal GI/Abdominal exam: Present: normal bowel sounds, soft, no peritoneal signs. Absent: distended, tenderness - Extremities Exam Extremities exam: Present: warm, radial pulses palpable and symmetrical. Absent : calf tenderness, cyanotic, pedal edema - Neurological Exam Neurological exam: Present: CN II-XII intact, oriented X3, no focal deficits. Absent: pronater drift, facial droop, speech deficit - Skin Skin exam: Present: dry, intact Internal Medicine: Result - Labs CBC & Chem 7: 09/16/17 03:22 09/16/17 03:22 - ABG Interpretation ABG results: ABG ABG pH 7.43 pH Units (7.32-7.45) 09/09/17 16:50 ABG pCO2 48 mmHg (35-45) H 09/09/17 16:50 ABG pO2 86 mmHg (85-104) 09/09/17 16:50 ABG O2 Saturation 97 % (95-98) 09/09/17 16:50 PT/INR, D-dimer PT 13.0 Seconds (9.4-12.1) H 09/15/17 04:58 D-Dimer 468 ng/mLFEU (0-500) 09/09/17 16:22 - VTE Documentation of Mechanical Device: Graduated compression elastic hosiery Consult Discharge Plan - Plan Referrals: Marilyn Rojas, EXHIBITION ORGANISER [Primary Care Provider] - Prescriptions: Rivaroxaban [Xarelto] 1 dose PO AD 30 Days #1 pack
[2017-09-17] MEDS: Lactulose Oral Soln 20 GM/30 ML UDC PO SCH ×2 (14:24→21:09)
[2017-09-17] MEDS: *HR* HYDROcodone/Acet 5/325 mg TABLET PO PRN (21:15)
[2017-09-18] MEDS: Ipratropium/Albuterol Neb 3 ML IH SCH ×7 (00:22→23:32)
[2017-09-18] MEDS: OXYCODONE Oral CONC 10 MG/0.5 ML ORAL.SYG SL PRN ×2 (01:05→09:51)
[2017-09-18] MEDS: MethylPREDNISolone 40 MG/ML VIAL IVP SCH ×3 (01:05→20:50)
[2017-09-18 05:52] LABS: BUN/Creatinine Ratio 56 (6-26); Blood Urea Nitrogen 31 mg/dL (6-20); Calcium 9.4 mg/dL (8.6-10.3); Carbon Dioxide 37 mEq/L (23-29); Chloride 90 mEq/L (98-107); Glucose 152 mg/dL (70-105); Osmolality,Calculated 286 (280-300); Sodium 133 mEq/L (136-145); eGFR For African Americans > 60 (> 60); eGFR For Non-African Americans > 60 (> 60)
[2017-09-18] MEDS: Budesonide/Formoterol 160/4.5 MDI IH SCH ×2 (08:27→19:51)
--- NOTE | 2017-09-18 08:52 | Internal Med Progress Note ---
<Bob Saeed - Last Filed: 09/18/17 08:49> Date of Encounter: 09/18/17 Time of Encounter: 08:50 - Assessment and plan (1) Acute exacerbation of chronic obstructive airways disease Current Visit: Yes Status: Acute Assessment and plan: Acute on chronic hypoxic resp failure secondary to acute copd exacerbation due to CAP (unknown agent) in combination with acute pulmonary emboli with volume overload Continue Xarelto Discontinued Zosyn at day 8 Continue Levaquin day 7 Continue Solumedrol IV, decreased dose from q8h to BID Increased Lasix to TID dosing due to refractory congestion (hold triamterene and HCTZ) Resp infection panel negative CTA chest Showed:Right upper lobe pulmonary embolus. Nodular infiltrate in the left upper lobe posterolaterally. (2) Pneumonia Current Visit: Yes Status: Acute Assessment and plan: Patient being treated for pneumonia Sputum culture shows Corynebacterium, normal carlos. Speech therapy ruled out aspiration. Recommended regular diet. Aspiration precautions. Encourage incentive spirometry 07/27/17 Echo reveals 55%, mild RV diastolic dysfunction Continue Lasix 40mg IV Qualifiers: Pneumonia type: due to other aerobic Gram-negative bacteria Laterality: bilateral Lung location: lower lobe of lung Qualified Code(s): J15.6 - Pneumonia due to other Gram-negative bacteria (3) Acute and chronic respiratory failure Current Visit: Yes Status: Acute Assessment and plan: Continue 4L humidified O2 supplementation, bronchodilators, BiPap, and syptomatic care. Qualifiers: Respiratory failure complication: hypoxia Qualified Code(s): J96.21 - Acute and chronic respiratory failure with hypoxia (4) Pulmonary embolism Current Visit: Yes Status: Acute Assessment and plan: CTA revealed right upper lobe pulmonary embolus and nodular infiltrate in the left upper lobe posterolaterally. Continue Xarelto 15mg PO BID for 21 days, then 20mg daily for 3 month total duration Qualifiers: Pulmonary embolism type: other Chronicity: acute Acute cor pulmonale presence: without acute cor pulmonale Qualified Code(s): I26.99 - Other pulmonary embolism without acute cor pulmonale (5) Essential hypertension Current Visit: Yes Status: Chronic Assessment and plan: Blood pressure is well controlled. Increased Lasix to TID dosing due to refractory congestion (hold triamterene and HCTZ) (6) Constipation Current Visit: Yes Status: Acute Assessment and plan: Improving with enemas Continue Lactulose Qualifiers: Constipation type: other constipation type Qualified Code(s): K59.09 - Other constipation - Time Spent With Patient Total time spent is greater than 50% in coordination of care (as documented) at patient's floor/unit and/or counseling patient: - Subjective Interval history: Patient seen and examined resting comfortably in bed. He reports breathing has slightly improved today. Patient reports using incentive spirometry and BiPap at night. Lasix dose increased to TID. Patient had a BM last PM and was encouraged to ambulate. - Constitutional Vitals: Temp Pulse Resp BP Pulse Ox 98.3 F 69 18 120/68 95 09/18/17 07:31 09/18/17 07:31 09/18/17 07:31 09/18/17 07:31 09/18/17 07:31 General appearance: Present: cooperative, mild distress, A&O X 3, pleasant, no acute distress, answers questions appropriately - Head Head exam: Present: atraumatic, normocephalic - Eye Eye exam: Present: PERRL, conjuntiva pink, sclera anicteric Pupils: Present: PERRL - ENT ENT exam: Present: mucous membranes dry, normal oropharynx - Neck Neck exam general surgery: Present: supple, trachea midline. Absent: lymphadenopathy - Respiratory Respiratory exam: Present: rales (diffuse). Absent: accessory muscle use, decreased breath sounds, CTAB, respiratory distress (4L O2 via NC), rhonchi, wheezes - Cardiovascular Cardiovascular exam: Present: RRR, +S1, +S2. Absent: diastolic murmur, gallop, rubs, systolic murmur - GI/Abdominal GI/Abdominal exam: Present: normal bowel sounds, soft, no peritoneal signs. Absent: distended, guarding, tenderness - Extremities Exam Extremities exam: Present: warm, radial pulses palpable and symmetrical. Absent : calf tenderness, cyanotic, pedal edema, tenderness - Back Exam Back exam: Present: normal inspection. Absent: tenderness - Neurological Exam Neurological exam: Present: CN II-XII intact, oriented X3, no focal deficits. Absent: pronater drift, facial droop, speech deficit - Psychiatric Psychiatric exam: Present: normal affect, normal mood - Skin Skin exam: Present: dry, intact, normal color, warm Internal Medicine: Result - Labs CBC & Chem 7: 09/16/17 03:22 09/18/17 05:00 Labs: BMP 09/18/17 05:00 Sodium 133 L Potassium 4.0 Chloride 90 L Carbon Dioxide 37 H BUN 31 H Creatinine 0.55 L Glucose 152 H Calcium 9.4 - ABG Interpretation ABG results: ABG ABG pH 7.43 pH Units (7.32-7.45) 09/09/17 16:50 ABG pCO2 48 mmHg (35-45) H 09/09/17 16:50 ABG pO2 86 mmHg (85-104) 09/09/17 16:50 ABG O2 Saturation 97 % (95-98) 09/09/17 16:50 PT/INR, D-dimer PT 13.0 Seconds (9.4-12.1) H 09/15/17 04:58 D-Dimer 468 ng/mLFEU (0-500) 09/09/17 16:22 - Pulse Oximetry Interpretation Digit-Finger Pulse Oximetry Readin (4L O2 via NC) - VTE Documentation of Mechanical Device: Graduated compression elastic hosiery Consult Discharge Plan - Plan Referrals: Marilyn Rojas, WHEEL PRESSER [Primary Care Provider] - Prescriptions: Rivaroxaban [Xarelto] 1 dose PO AD 30 Days #1 pack <Lane Goode - Last Filed: 09/18/17 09:19> Date of Encounter: 09/18/17 - Assessment and plan (1) Acute exacerbation of chronic obstructive airways disease Current Visit: Yes Status: Acute (2) Acute and chronic respiratory failure Current Visit: Yes Status: Acute Qualifiers: Respiratory failure complication: hypoxia Qualified Code(s): J96.21 - Acute and chronic respiratory failure with hypoxia (3) Pneumonia Current Visit: Yes Status: Acute Qualifiers: Pneumonia type: due to other aerobic Gram-negative bacteria Laterality: bilateral Lung location: lower lobe of lung Qualified Code(s): J15.6 - Pneumonia due to other Gram-negative bacteria (4) Essential hypertension Current Visit: Yes Status: Chronic (5) Pulmonary embolism Current Visit: Yes Status: Acute Qualifiers: Pulmonary embolism type: other Chronicity: acute Acute cor pulmonale presence: without acute cor pulmonale Qualified Code(s): I26.99 - Other pulmonary embolism without acute cor pulmonale (6) Constipation Current Visit: Yes Status: Acute Qualifiers: Constipation type: other constipation type Qualified Code(s): K59.09 - Other constipation - Time Spent With Patient Total time spent is greater than 50% in coordination of care (as documented) at patient's floor/unit and/or counseling patient: - Constitutional Vitals: Temp Pulse Resp BP Pulse Ox 98.3 F 69 18 120/68 95 09/18/17 07:31 09/18/17 07:31 09/18/17 07:31 09/18/17 07:31 09/18/17 07:31 Internal Medicine: Result - Labs CBC & Chem 7: 09/16/17 03:22 09/18/17 05:00 Labs: BMP 09/18/17 05:00 Sodium 133 L Potassium 4.0 Chloride 90 L Carbon Dioxide 37 H BUN 31 H Creatinine 0.55 L Glucose 152 H Calcium 9.4 - ABG Interpretation ABG results: ABG ABG pH 7.43 pH Units (7.32-7.45) 09/09/17 16:50 ABG pCO2 48 mmHg (35-45) H 09/09/17 16:50 ABG pO2 86 mmHg (85-104) 09/09/17 16:50 ABG O2 Saturation 97 % (95-98) 09/09/17 16:50 PT/INR, D-dimer PT 13.0 Seconds (9.4-12.1) H 09/15/17 04:58 D-Dimer 468 ng/mLFEU (0-500) 09/09/17 16:22 - Attending Attestation acute on chronic hypoxic resp failure 2ry to acute copd exacerbation due to CAP (unknown agent) in combination with acute pulmonary emboli with volume overload Xarelto Discontinue Zosyn at day 8 and discontinue levaquin at day 7 solumedrol IV lasix due to congestion (hold triamterene and HCTZ) resp infection panel negative CTA chest Showed:Right upper lobe pulmonary embolus. Nodular infiltrate in the left upper lobe posterolaterally. I examined this patient and my medical decision-making was reviewed with the Resident Physician. I agree with the documented findings, disposition and treatment plan as described except to the extent set forth below.
[2017-09-18] MEDS: *HR* Rivaroxaban 15 MG TABLET PO SCH ×2 (09:39→20:48)
[2017-09-18] MEDS: levoFLOXacin 750 MG TABLET PO SCH (09:39)
[2017-09-18] MEDS: *HR* Acetylcysteine 20% 600 MG/3 ML ORAL SYRINGE PO SCH ×2 (09:40→20:48)
[2017-09-18] MEDS: Lactulose Oral Soln 20 GM/30 ML UDC PO SCH ×2 (09:42→20:50)
[2017-09-18] MEDS: Furosemide 40 MG/4 ML VIAL IVP SCH ×3 (09:46→17:29)
[2017-09-18] MEDS ORDERED: Furosemide 40 MG/4 ML VIAL IVP SCH (12:00)
[2017-09-18] MEDS: (Roflumilast [Daliresp] 500 MCG PO SCH (17:31)
[2017-09-18] MEDS: *HR* HYDROcodone/Acet 5/325 mg TABLET PO PRN (21:25)
[2017-09-19] MEDS: Ipratropium/Albuterol Neb 3 ML IH SCH ×6 (03:49→23:21)
[2017-09-19 04:13] LABS: Hematocrit 35.6 % (37.5-50.1); Hemoglobin 11.6 g/dL (12.9-16.9); Mean Corpuscular HGB Conc 32.6 g/dL (31.6-35.5); Mean Corpuscular Hemoglobin 29.3 pg (28.0-33.3); Mean Corpuscular Volume 89.9 fL (83.0-100.0); Mean Platelet Volume 9.8 fL (9.4-12.4); Platelet Count 287 K/mcL (140-400); Red Blood Count 3.96 M/mcL (4.19-5.50); Red Cell Distribution Width 14.7 % (11.5-14.5)
[2017-09-19 04:34] LABS: BUN/Creatinine Ratio 70 (6-26); Blood Urea Nitrogen 38 mg/dL (6-20); Calcium 9.2 mg/dL (8.6-10.3); Carbon Dioxide 36 mEq/L (23-29); Chloride 91 mEq/L (98-107); Glucose 152 mg/dL (70-105); Osmolality,Calculated 292 (280-300); Sodium 135 mEq/L (136-145); eGFR For African Americans > 60 (> 60); eGFR For Non-African Americans > 60 (> 60)
[2017-09-19] MEDS: Budesonide/Formoterol 160/4.5 MDI IH SCH ×2 (07:54→20:19)
[2017-09-19] MEDS: Lactulose Oral Soln 20 GM/30 ML UDC PO SCH ×2 (10:22→21:22)
[2017-09-19] MEDS: *HR* Acetylcysteine 20% 600 MG/3 ML ORAL SYRINGE PO SCH ×2 (10:22→21:22)
[2017-09-19] MEDS: Furosemide 40 MG/4 ML VIAL IVP SCH ×3 (10:22→16:59)
[2017-09-19] MEDS: MethylPREDNISolone 40 MG/ML VIAL IVP SCH ×2 (10:22→21:22)
[2017-09-19] MEDS: *HR* Rivaroxaban 15 MG TABLET PO SCH ×2 (10:22→21:22)
[2017-09-19] MEDS: (Roflumilast [Daliresp] 500 MCG PO SCH (10:23)
--- NOTE | 2017-09-19 10:37 | Internal Med Progress Note ---
<Bob Saeed - Last Filed: 09/19/17 12:54> Date of Encounter: 09/19/17 Time of Encounter: 10:37 - Assessment and plan (1) Acute exacerbation of chronic obstructive airways disease Current Visit: Yes Status: Acute Assessment and plan: Acute on chronic hypoxic resp failure secondary to acute copd exacerbation due to CAP (unknown agent) in combination with acute pulmonary emboli with volume overload Continue Xarelto Discontinued Zosyn on day 8 Discontinued Levaquin on day 7 Continue Solumedrol IV BID Continue Lasix TID dosing due to refractory congestion (hold triamterene and HCTZ) Resp infection panel negative CTA chest Showed:Right upper lobe pulmonary embolus. Nodular infiltrate in the left upper lobe posterolaterally. (2) Pneumonia Current Visit: Yes Status: Acute Assessment and plan: Patient being treated for pneumonia Sputum culture shows Corynebacterium, normal carlos. Discontinued Zosyn on day 8 Discontinued Levaquin on day 7 Speech therapy ruled out aspiration. Recommended regular diet. Aspiration precautions. Encourage incentive spirometry 07/27/17 Echo reveals 55%, mild RV diastolic dysfunction Continue Lasix 40mg IV Qualifiers: Pneumonia type: due to other aerobic Gram-negative bacteria Laterality: bilateral Lung location: lower lobe of lung Qualified Code(s): J15.6 - Pneumonia due to other Gram-negative bacteria (3) Acute and chronic respiratory failure Current Visit: Yes Status: Acute Assessment and plan: Continue 4L humidified O2 supplementation, bronchodilators, BiPap, and symptomatic care. Qualifiers: Respiratory failure complication: hypoxia Qualified Code(s): J96.21 - Acute and chronic respiratory failure with hypoxia (4) Pulmonary embolism Current Visit: Yes Status: Acute Assessment and plan: CTA revealed right upper lobe pulmonary embolus and nodular infiltrate in the left upper lobe posterolaterally. Continue Xarelto 15mg PO BID for 21 days, then 20mg daily for 3 month total duration Qualifiers: Pulmonary embolism type: other Chronicity: acute Acute cor pulmonale presence: without acute cor pulmonale Qualified Code(s): I26.99 - Other pulmonary embolism without acute cor pulmonale (5) Essential hypertension Current Visit: Yes Status: Chronic Assessment and plan: Blood pressure is well controlled. Continue Lasix (hold triamterene and HCTZ) (6) Constipation Current Visit: Yes Status: Acute Assessment and plan: Improving with enemas Continue Lactulose Qualifiers: Constipation type: other constipation type Qualified Code(s): K59.09 - Other constipation - Time Spent With Patient Total time spent is greater than 50% in coordination of care (as documented) at patient's floor/unit and/or counseling patient: - Subjective Interval history: Patient seen and examined resting comfortably in bed. He reports abdominal fullness and breathing has slightly improved today. Patient reports using incentive spirometry and BiPap at night. Now on Lasix TID. Patient had a BM this AM and was encouraged to ambulate. - Constitutional Vitals: Temp Pulse Resp BP Pulse Ox 98 F 55 16 133/80 95 09/19/17 07:00 09/19/17 07:00 09/19/17 07:54 09/19/17 07:00 09/19/17 07:54 General appearance: Present: cooperative, mild distress, A&O X 3, pleasant, no acute distress, answers questions appropriately - Head Head exam: Present: atraumatic, normocephalic - Eye Eye exam: Present: PERRL, conjuntiva pink, sclera anicteric Pupils: Present: PERRL - ENT ENT exam: Present: mucous membranes dry, normal oropharynx - Neck Neck exam general surgery: Present: supple, trachea midline. Absent: lymphadenopathy - Respiratory Respiratory exam: Present: rales (improving). Absent: accessory muscle use, respiratory distress, rhonchi, wheezes - Cardiovascular Cardiovascular exam: Present: RRR, +S1, +S2. Absent: diastolic murmur, gallop, rubs, systolic murmur - GI/Abdominal GI/Abdominal exam: Present: normal bowel sounds, soft, no peritoneal signs. Absent: distended, tenderness - Extremities Exam Extremities exam: Present: warm, radial pulses palpable and symmetrical. Absent : calf tenderness, cyanotic, pedal edema - Back Exam Back exam: Present: normal inspection. Absent: tenderness - Neurological Exam Neurological exam: Present: CN II-XII intact, oriented X3, no focal deficits. Absent: pronater drift, facial droop, speech deficit - Psychiatric Psychiatric exam: Present: normal affect, normal mood - Skin Skin exam: Present: dry, intact, normal color, warm Internal Medicine: Result - Labs CBC & Chem 7: 09/19/17 03:39 09/19/17 03:39 Labs: Short CBC 09/19/17 Range/Units 03:39 WBC 7.0 (4.3-11.1) K/mcL Hgb 11.6 L (12.9-16.9) g/dL Hct 35.6 L (37.5-50.1) % Plt Count 287 (140-400) K/mcL BMP 09/19/17 03:39 Sodium 135 L Potassium 4.0 Chloride 91 L Carbon Dioxide 36 H BUN 38 H Creatinine 0.54 L Glucose 152 H Calcium 9.2 - ABG Interpretation ABG results: ABG ABG pH 7.43 pH Units (7.32-7.45) 09/09/17 16:50 ABG pCO2 48 mmHg (35-45) H 09/09/17 16:50 ABG pO2 86 mmHg (85-104) 09/09/17 16:50 ABG O2 Saturation 97 % (95-98) 09/09/17 16:50 PT/INR, D-dimer PT 13.0 Seconds (9.4-12.1) H 09/15/17 04:58 D-Dimer 468 ng/mLFEU (0-500) 09/09/17 16:22 - Pulse Oximetry Interpretation Digit-Finger Pulse Oximetry Readin (4L O2 via NC) - VTE Documentation of Mechanical Device: Graduated compression elastic hosiery Consult Discharge Plan - Plan Referrals: Marilyn Rojas SOCIAL SERVICES AIDE [Primary Care Provider] - Prescriptions: Rivaroxaban [Xarelto] 1 dose PO AD 30 Days #1 pack <Phong Muir - Last Filed: 09/19/17 16:44> Date of Encounter: 09/19/17 - Assessment and plan (1) Acute exacerbation of chronic obstructive airways disease Current Visit: Yes Status: Acute (2) Acute and chronic respiratory failure Current Visit: Yes Status: Acute Qualifiers: Respiratory failure complication: hypoxia Qualified Code(s): J96.21 - Acute and chronic respiratory failure with hypoxia (3) Pneumonia Current Visit: Yes Status: Acute Qualifiers: Pneumonia type: due to other aerobic Gram-negative bacteria Laterality: bilateral Lung location: lower lobe of lung Qualified Code(s): J15.6 - Pneumonia due to other Gram-negative bacteria (4) Essential hypertension Current Visit: Yes Status: Chronic (5) Pulmonary embolism Current Visit: Yes Status: Acute Qualifiers: Pulmonary embolism type: other Chronicity: acute Acute cor pulmonale presence: without acute cor pulmonale Qualified Code(s): I26.99 - Other pulmonary embolism without acute cor pulmonale (6) Constipation Current Visit: Yes Status: Acute Qualifiers: Constipation type: other constipation type Qualified Code(s): K59.09 - Other constipation - Time Spent With Patient Total time spent is greater than 50% in coordination of care (as documented) at patient's floor/unit and/or counseling patient: - Constitutional Vitals: Temp Pulse Resp BP Pulse Ox 98 F 78 18 110/76 94 09/19/17 07:00 09/19/17 15:00 09/19/17 15:00 09/19/17 15:00 09/19/17 15:00 Internal Medicine: Result - Labs CBC & Chem 7: 09/19/17 03:39 09/19/17 03:39 Labs: Short CBC 09/19/17 Range/Units 03:39 WBC 7.0 (4.3-11.1) K/mcL Hgb 11.6 L (12.9-16.9) g/dL Hct 35.6 L (37.5-50.1) % Plt Count 287 (140-400) K/mcL BMP 09/19/17 03:39 Sodium 135 L Potassium 4.0 Chloride 91 L Carbon Dioxide 36 H BUN 38 H Creatinine 0.54 L Glucose 152 H Calcium 9.2 - ABG Interpretation ABG results: ABG ABG pH 7.43 pH Units (7.32-7.45) 09/09/17 16:50 ABG pCO2 48 mmHg (35-45) H 09/09/17 16:50 ABG pO2 86 mmHg (85-104) 09/09/17 16:50 ABG O2 Saturation 97 % (95-98) 09/09/17 16:50 PT/INR, D-dimer PT 13.0 Seconds (9.4-12.1) H 09/15/17 04:58 D-Dimer 468 ng/mLFEU (0-500) 09/09/17 16:22 - Attending Attestation I examined this patient and my medical decision-making was reviewed with the Resident Physician. I agree with the documented findings, disposition and treatment plan as described except to the extent set forth below. 57-year-old male with chronic respiratory failure secondary to severe emphysema who is admitted and being managed for acute on chronic hypoxemic respiratory failure secondary to community-acquired pneumonia, COPD exacerbation, acute pulmonary embolism, and volume overload Patient has no new complains on evaluation. Is clinically stable and physical examination is remarkable for diffuse bilateral wheezing and reveals. Labs and imaging reviewed sputum is growing gram-positive rods, patient has completed 10 days course of antibiotics. Plan is to continue current care, is back to his home dose of oxygen. Anticipate discharge home tomorrow. Rest of details as in the resident physicians documentation.
[2017-09-19] MEDS: *HR* HYDROcodone/Acet 5/325 mg TABLET PO PRN ×2 (16:04→21:21)
[2017-09-20] MEDS: Ipratropium/Albuterol Neb 3 ML IH SCH ×3 (03:23→11:10)
[2017-09-20 06:52] LABS: BUN/Creatinine Ratio 71 (6-26); Blood Urea Nitrogen 30 mg/dL (6-20); Carbon Dioxide 37 mEq/L (23-29); Chloride 92 mEq/L (98-107); Glucose 167 mg/dL (70-105); Osmolality,Calculated 290 (280-300); Potassium 3.8 mEq/L (3.5-5.1); Sodium 135 mEq/L (136-145); eGFR For African Americans > 60 (> 60); eGFR For Non-African Americans > 60 (> 60)
[2017-09-20 07:11] VITALS: BP 122/81
[2017-09-20] MEDS: Budesonide/Formoterol 160/4.5 MDI IH SCH (07:45)
--- NOTE | 2017-09-20 08:53 | Discharge Summary ---
<Bob Saeed - Last Filed: 09/20/17 08:51> - NOTES TO OUTPATIENT PROVIDER Notes to Outpatient Provider: Continue Xarelto 15mg PO BID for 21 days, then 20mg daily for 3 month total duration for pulmonary embolism treatment. Taper steroids. Continue Lasix PO TID dosing due to refractory congestion (hold triamterene and HCTZ), repeat BMP in 1 week. Date of Encounter: 09/20/17 Time of Encounter: 08:51 - Discharge Diagnosis (1) Acute exacerbation of chronic obstructive airways disease Priority: Primary Status: Acute Assessment and Plan: Acute on chronic hypoxic resp failure secondary to acute copd exacerbation due to CAP (unknown agent) in combination with acute pulmonary emboli with volume overload Continue Xarelto Discontinued Zosyn on day 8 Discontinued Levaquin on day 7 Switch from Solumedrol IV BID to Prednisone taper Continue Lasix PO TID dosing due to refractory congestion (hold triamterene and HCTZ) Resp infection panel negative CTA chest Showed:Right upper lobe pulmonary embolus. Nodular infiltrate in the left upper lobe posterolaterally. (2) Pneumonia Priority: Primary Status: Acute Assessment and Plan: Patient being treated for pneumonia Sputum culture shows Corynebacterium, normal carlos. Discontinued Zosyn on day 8 Discontinued Levaquin on day 7 Speech therapy ruled out aspiration. Recommended regular diet. Aspiration precautions. Encourage incentive spirometry 07/27/17 Echo reveals 55%, mild RV diastolic dysfunction Continue Lasix 40mg PO TID Qualifiers: Pneumonia type: due to other aerobic Gram-negative bacteria Laterality: bilateral Lung location: lower lobe of lung Qualified Code(s): J15.6 - Pneumonia due to other Gram-negative bacteria (3) Acute and chronic respiratory failure Priority: Primary Status: Acute Assessment and Plan: Continue 4L humidified O2 supplementation, bronchodilators, BiPap, and symptomatic care. Qualifiers: Respiratory failure complication: hypoxia Qualified Code(s): J96.21 - Acute and chronic respiratory failure with hypoxia (4) Pulmonary embolism Priority: Primary Status: Acute Assessment and Plan: CTA revealed right upper lobe pulmonary embolus and nodular infiltrate in the left upper lobe posterolaterally. Continue Xarelto 15mg PO BID for 21 days, then 20mg daily for 3 month total duration Qualifiers: Pulmonary embolism type: other Chronicity: acute Acute cor pulmonale presence: without acute cor pulmonale Qualified Code(s): I26.99 - Other pulmonary embolism without acute cor pulmonale (5) Essential hypertension Priority: Secondary Status: Chronic Assessment and Plan: Blood pressure is well controlled. Continue Lasix (hold triamterene and HCTZ) (6) Constipation Priority: Secondary Status: Resolved Assessment and Plan: Resolved Qualifiers: Constipation type: other constipation type Qualified Code(s): K59.09 - Other constipation Hospital course: Mr. Blanchard is a 57 year old male with a PMJH of chronic respiratory failure secondary to severe emphysema, COPD and tobacco dependence who presented with a complaint of shortness of breath and cough. He states that he has had these symptoms for months, and has been admitted several times for COPD exacerbations and recently for pneumonia at [facility] in [place] for one week and released several days ago. He thinks he felt better the day he was discharged but now is again so short of breath and barely able to ambulate. He is on 4L home o2 at baseline and has been compliant with using it. He complains of chest tightness which is worse with coughing. He has been coughing up occasional white sputum, states that it is hard to cough anything up. Patient was treated for acute on chronic hypoxemic respiratory failure and stated he was not feeling good despite bronchodilators and systemic steroids. CT chest revealed pulmonary embolism and patient was started on Xarelto. Pulmonary was consulted for evaluation due to dyspnea with productive cough as well as wheezing. Sputum culture grew Corynebacterium, patient completed 10 days course of antibiotics for community-acquired pneumonia. Volume overload continued to improve with diuresis. He is back to baseline home O2 requirement and was discharged home with [facility]. Follow up with PCP in 1-2 weeks. Discharge discussed with: patient Time spent discussing smoking cessation with patient: more than 10 minutes - Time Spent with Patient Total time spent providing and/or coordinating discharge services: - Discharge Medications Prescriptions: Albuterol Sulfate [Albuterol Inhaler] 2 puff IH Q4H PRN #1 inhaler PRN Reason: Shortness Of Breath Budesonide Neb [Pulmicort Neb] 0.5 mg IH BID #1 inhsol Furosemide [Lasix] 40 mg PO TID #90 tab Mometasone/Formoterol [Dulera 200 Mcg/5 Mcg Inhaler] 2 puff IH BID #1 hfa.aer.ad Omeprazole [PriLOSEC] 20 mg PO DAILY@0730 #30 capsule. predniSONE [PredniSONE] See Taper PO DAILY #30 tablet Rivaroxaban [Xarelto] 1 dose PO AD 30 Days #1 pack Rivaroxaban [Xarelto] 20 mg PO DAILY #60 tablet Tiotropium [place] [Spiriva Respimat] 2 puff IH DAILY #1 mist.inhal Umeclidinium [place] [Incruse Ellipta] 62.5 mcg IH DAILY #1 blst.w.dev Home Medications: Docusate [Colace] 100 mg PO BID 07/25/17 [History] Ipratropium/Albuterol Neb [Duoneb] 3 ml IH Q4H 07/25/17 [History] Oxygen 4 l NS AD 07/25/17 [History] Polyethylene Glycol 3350 17 gm PO DAILY PRN 07/25/17 [History] Roflumilast [Daliresp] 500 mcg PO DAILY 07/25/17 [History] GuaiFENesin ER [Mucinex] 600 mg PO BID tbbp.12hr 07/28/17 [Rx] Metoprolol [Lopressor] 25 mg PO BID 09/10/17 [History] Rivaroxaban [Xarelto] 1 dose PO AD 30 Days #1 pack 09/14/17 [Rx] Acetaminophen [Tylenol] 650 mg PO Q6HR PRN tablet 09/20/17 [Rx] Albuterol Sulfate [Albuterol Inhaler] 2 puff IH Q4H PRN #1 inhaler 09/20/17 [Rx] Budesonide Neb [Pulmicort Neb] 0.5 mg IH BID #1 inhsol 09/20/17 [Rx] Furosemide [Lasix] 40 mg PO TID #90 tab 09/20/17 [Rx] Mometasone/Formoterol [Dulera 200 Mcg/5 Mcg Inhaler] 2 puff IH BID #1 hfa.aer.ad 09/20/17 [Rx] Naloxone [Narcan] 0.4 mg IVP Q2MIN PRN inj 09/20/17 [Rx] Omeprazole [PriLOSEC] 20 mg PO DAILY@0730 #30 capsule. 09/20/17 [Rx] Rivaroxaban [Xarelto] 20 mg PO DAILY #60 tablet 09/20/17 [Rx] Tiotropium [place] [Spiriva Respimat] 2 puff IH DAILY #1 mist.inhal 09/20/17 [Rx ] Umeclidinium [place] [Incruse Ellipta] 62.5 mcg IH DAILY #1 blst.w.dev 09/20/17 [Rx] predniSONE [PredniSONE] See Taper PO DAILY #30 tablet 09/20/17 [Rx] Allergies/Adverse Reactions: 3 Allergy/AdvReac Type Severity Reaction Status Date / Time No Known Allergies Allergy Verified 09/09/17 15:52 Date of admission: 09/11/17 13:21 Primary care physician: Marilyn Rojas CNP Consults: 09/15/17 09:07 Consult to Pulmonology [CONS] Routine Consulting Provider: [facility] [place] Reason for Consult: Pneumonia, pulmonary congestion despite treatment, consider bronchoscopy Time Notified: 09:08 Call Completed: Yes 09/18/17 08:47 Consult to Physical Therapy [CONS] Routine Comment: Evaluate, develop and implement POC Reason for Consult: Eval and treat Does patient have active BEDREST order?: No Is patient medically & hemodynamically stable?: Yes Patient assessed for mobility or mobilized this visit?: No OT [Consult to Occupational Therapy] [CONS] Routine Comment: Evaluate, develop and implement POC Reason for Consult: Eval and treat Does patient have active BEDREST order?: No Is patient medically & hemodynamically stable?: Yes Patient assessed for mobility or mobilized this visit?: No Discharging clinician: Bob Saeed Anticipated date of discharge: 09/20/17 - Constitutional Vitals: Temp Pulse Resp BP Pulse Ox 97.9 F 56 16 122/81 95 09/20/17 07:05 09/20/17 07:05 09/20/17 07:05 09/20/17 07:05 09/20/17 07:05 General appearance: Present: cooperative, mild distress, A&O X 3, pleasant, no acute distress, answers questions appropriately - Head Head exam: Present: atraumatic, normocephalic - Eye Eye exam: Present: PERRL, conjuntiva pink, sclera anicteric Pupils: Present: PERRL - ENT ENT exam: Present: mucous membranes moist, normal oropharynx - Neck Neck exam general surgery: Present: supple, trachea midline. Absent: lymphadenopathy - Respiratory Respiratory exam: Present: CTAB. Absent: accessory muscle use, decreased breath sounds, rales, respiratory distress, rhonchi, wheezes - Cardiovascular Cardiovascular exam: Present: RRR, +S1, +S2. Absent: diastolic murmur, gallop, rubs, systolic murmur - GI/Abdominal GI/Abdominal exam: Present: normal bowel sounds, soft, no peritoneal signs. Absent: distended, tenderness - Extremities Exam Extremities exam: Present: warm, radial pulses palpable and symmetrical. Absent : calf tenderness, cyanotic, pedal edema - Back Exam Back exam: Present: normal inspection. Absent: tenderness - Neurological Exam Neurological exam: Present: CN II-XII intact, oriented X3, no focal deficits. Absent: pronater drift, facial droop, speech deficit - Psychiatric Psychiatric exam: Present: normal affect, normal mood - Skin Skin exam: Present: dry, intact, normal color, warm - Patient Status Disposition: Home Health Service Condition: Fair Functional capacity at discharge: independent ambulation Overall status at discharge: patient is back to baseline - Discharge Instructions Instructions: Pulmonary Embolism (DC), Acute Respiratory Distress Syndrome (DC) , Chronic Obstructive Pulmonary Disease (DC), Chronic Hypertension (DC), Pneumonia (DC) Follow Up With: Marilyn Rojas CNP [Primary Care Provider] - 09/27/17 10:45 am - Diet and Activity Activity: as per physical therapy, resume usual activities as tolerated, wear oxygen at all times Diet: low fat, low cholesterol <Phong Muir - Last Filed: 09/20/17 14:43> Date of Encounter: 09/20/17 - Discharge Diagnosis (1) Acute exacerbation of chronic obstructive airways disease Status: Acute (2) Acute and chronic respiratory failure Status: Acute Qualifiers: Respiratory failure complication: hypoxia Qualified Code(s): J96.21 - Acute and chronic respiratory failure with hypoxia (3) Pneumonia Status: Acute Qualifiers: Pneumonia type: due to other aerobic Gram-negative bacteria Laterality: bilateral Lung location: lower lobe of lung Qualified Code(s): J15.6 - Pneumonia due to other Gram-negative bacteria (4) Essential hypertension Status: Chronic (5) Pulmonary embolism Status: Acute Qualifiers: Pulmonary embolism type: other Chronicity: acute Acute cor pulmonale presence: without acute cor pulmonale Qualified Code(s): I26.99 - Other pulmonary embolism without acute cor pulmonale (6) Constipation Status: Resolved Qualifiers: Constipation type: other constipation type Qualified Code(s): K59.09 - Other constipation Hospital course: Mr. Blanchard is a 57 year old male - Time Spent with Patient Total time spent providing and/or coordinating discharge services: Date of admission: 09/11/17 13:21 Primary care physician: Marilyn Rojas CNP Consults: 09/15/17 09:07 Consult to Pulmonology [CONS] Routine Consulting Provider: Pulm [facility] [place] Reason for Consult: Pneumonia, pulmonary congestion despite treatment, consider bronchoscopy Time Notified: 09:08 Call Completed: Yes 09/18/17 08:47 Consult to Physical Therapy [CONS] Routine Comment: Evaluate, develop and implement POC Reason for Consult: Eval and treat Does patient have active BEDREST order?: No Is patient medically & hemodynamically stable?: Yes Patient assessed for mobility or mobilized this visit?: No OT [Consult to Occupational Therapy] [CONS] Routine Comment: Evaluate, develop and implement POC Reason for Consult: Eval and treat Does patient have active BEDREST order?: No Is patient medically & hemodynamically stable?: Yes Patient assessed for mobility or mobilized this visit?: No - Constitutional Vitals: Temp Pulse Resp BP Pulse Ox 97.9 F 56 18 122/81 97 09/20/17 07:05 09/20/17 07:05 09/20/17 11:10 09/20/17 07:05 09/20/17 11:10 - Attending Attestation I examined this patient and my medical decision-making was reviewed with the Resident Physician. I agree with the documented findings, disposition and treatment plan as described except to the extent set forth below. 57-year-old male with chronic respiratory failure secondary to severe emphysema who is admitted and being managed for acute on chronic hypoxemic respiratory failure secondary to community-acquired pneumonia, COPD exacerbation, acute pulmonary embolism, and volume overload Patient has no new complains on evaluation. Is clinically stable and physical examination is remarkable for scattered bilateral wheezing. He has completed 10 days course of antibiotics. Plan is to discharge back home. Rest of details as in the resident physicians documentation.
--- NOTE | 2017-09-20 09:35 | Physician Discharge Referral ---
<Bob Saeed - Last Filed: 09/20/17 09:33> Home Health/Hosp Referral Info Transfer to: Home Health Attending Provider: Dr. Muir Provider in Charge Post Discharge: PCP - Diagnosis (1) Acute exacerbation of chronic obstructive airways disease Priority: Primary Status: Acute (2) Pneumonia Priority: Primary Status: Acute (3) Acute and chronic respiratory failure Priority: Primary Status: Acute (4) Pulmonary embolism Priority: Primary Status: Acute (5) Essential hypertension Priority: Secondary Status: Chronic (6) Constipation Priority: Secondary Status: Resolved - Respiratory Orders Oxygen / L per min (4L continuous) Smoking Cessation: Smoking cessation has been advised. For more information, call the [place] Tobacco Quit Line at 7-157-BTCV-NOW. - Diet/Nutrition Diet/Nutrition Orders: Cardiac - Activity Activity Orders: Ambulate - Services Needed Following services are medically necessary services: Home Health Aide, Physical Therapy, Occupational Therapy - Transfer Medications Prescriptions: Albuterol Sulfate [Albuterol Inhaler] 2 puff IH Q4H PRN #1 inhaler PRN Reason: Shortness Of Breath Budesonide Neb [Pulmicort Neb] 0.5 mg IH BID #1 inhsol Furosemide [Lasix] 40 mg PO TID #90 tab Mometasone/Formoterol [Dulera 200 Mcg/5 Mcg Inhaler] 2 puff IH BID #1 hfa.aer.ad Omeprazole [PriLOSEC] 20 mg PO DAILY@0730 #30 capsule. predniSONE [PredniSONE] See Taper PO DAILY #30 tablet Rivaroxaban [Xarelto] 1 dose PO AD 30 Days #1 pack Rivaroxaban [Xarelto] 20 mg PO DAILY #60 tablet Tiotropium [place] [Spiriva Respimat] 2 puff IH DAILY #1 mist.inhal Umeclidinium [place] [Incruse Ellipta] 62.5 mcg IH DAILY #1 blst.w.dev Home Medications: Docusate [Colace] 100 mg PO BID 07/25/17 [History] Ipratropium/Albuterol Neb [Duoneb] 3 ml IH Q4H 07/25/17 [History] Oxygen 4 l NS AD 07/25/17 [History] Polyethylene Glycol 3350 17 gm PO DAILY PRN 07/25/17 [History] Roflumilast [Daliresp] 500 mcg PO DAILY 07/25/17 [History] GuaiFENesin ER [Mucinex] 600 mg PO BID tbbp.12hr 07/28/17 [Rx] Metoprolol [Lopressor] 25 mg PO BID 09/10/17 [History] Rivaroxaban [Xarelto] 1 dose PO AD 30 Days #1 pack 09/14/17 [Rx] Acetaminophen [Tylenol] 650 mg PO Q6HR PRN tablet 09/20/17 [Rx] Albuterol Sulfate [Albuterol Inhaler] 2 puff IH Q4H PRN #1 inhaler 09/20/17 [Rx] Budesonide Neb [Pulmicort Neb] 0.5 mg IH BID #1 inhsol 09/20/17 [Rx] Furosemide [Lasix] 40 mg PO TID #90 tab 09/20/17 [Rx] Mometasone/Formoterol [Dulera 200 Mcg/5 Mcg Inhaler] 2 puff IH BID #1 hfa.aer.ad 09/20/17 [Rx] Naloxone [Narcan] 0.4 mg IVP Q2MIN PRN inj 09/20/17 [Rx] Omeprazole [PriLOSEC] 20 mg PO DAILY@0730 #30 capsule.dr 09/20/17 [Rx] Rivaroxaban [Xarelto] 20 mg PO DAILY #60 tablet 09/20/17 [Rx] Tiotropium [place] [Spiriva Respimat] 2 puff IH DAILY #1 mist.inhal 09/20/17 [Rx ] Umeclidinium [place] [Incruse Ellipta] 62.5 mcg IH DAILY #1 blst.w.dev 09/20/17 [Rx] predniSONE [PredniSONE] See Taper PO DAILY #30 tablet 09/20/17 [Rx] Allergies/Adverse Reactions: 3 Allergy/AdvReac Type Severity Reaction Status Date / Time No Known Allergies Allergy Verified 09/09/17 15:52 Certification: Further, I certify that my clinical findings support that this patient is homebound (i.e. absences from home require considerable and taxing effort and are for medical reasons or sabianist services or infrequently or short duration when for other reasons) because: Homebound Reason: Patient requires assistance of a person or device to safely leave home, Leaving home requires considerable and taxing effort due to condition, Severity of cardiac or pulmonary status limits activity tolerance Attestation: My signature below is to certify that this patient is under my care and that I, or nurse practitioner, or a physician's assistant refinery operator working with me, has a face-to -face encounter with this patient. <Phong Muir T - Last Filed: 09/20/17 14:08> - Diagnosis (1) Acute exacerbation of chronic obstructive airways disease Status: Acute (2) Acute and chronic respiratory failure Status: Acute (3) Pneumonia Status: Acute (4) Essential hypertension Status: Chronic (5) Pulmonary embolism Status: Acute (6) Constipation Status: Resolved - Respiratory Orders Smoking Cessation: Smoking cessation has been advised. For more information, call the [place] Tobacco Quit Line at 3-251-HUOC-NOW. - Services Needed Following services are medically necessary services: Nursing Certification: Further, I certify that my clinical findings support that this patient is homebound (i.e. absences from home require considerable and taxing effort and are for medical reasons or sabianist services or infrequently or short duration when for other reasons) because: Attestation: My signature below is to certify that this patient is under my care and that I, or nurse practitioner, or a physician's assistant refinery operator working with me, has a face-to -face encounter with this patient.
[2017-09-20] MEDS: *HR* Rivaroxaban 15 MG TABLET PO SCH (09:48)
[2017-09-20] MEDS: MethylPREDNISolone 40 MG/ML VIAL IVP SCH (09:48)
[2017-09-20] MEDS: *HR* Acetylcysteine 20% 600 MG/3 ML ORAL SYRINGE PO SCH (09:48)
[2017-09-20] MEDS: (Roflumilast [Daliresp] 500 MCG PO SCH (09:49)
[2017-09-20] MEDS: Furosemide 40 MG/4 ML VIAL IVP SCH ×2 (09:49→12:37)
[2017-09-20] MEDS: Lactulose Oral Soln 20 GM/30 ML UDC PO SCH (09:52)
== END 2017-09-20 15:18 | disposition home health service (06) | DRG 137 ==
LOC: 2NENU 15:51 → EMEROO 15:51 → SUATTDRO 19:00 → 2NENU 20:20 → SUATTDRO 09-11 13:21
PROVIDERS: ADMIT Nurse Practitioner; ATTEND Internal Medicine

== ENCOUNTER 2017-09-30 11:07 | Inpatient (IN) ==
[2017-09-30] MEDS ORDERED: Ipratropium/Albuterol Neb 3 ML IH ONE (12:05)
[2017-09-30] MEDS ORDERED: Albuterol 2.5 MG/3 ML NEBULIZER IH ONE (12:05)
[2017-09-30] MEDS ORDERED: methylPREDNISolone 125 MG/2 ML VIAL IVP ONE (12:06)
[2017-09-30] MEDS ORDERED: Azithromycin 500 MG in D5% in Water 250 ML IVPB STA ×3 (12:06→13:59)
[2017-09-30] MEDS ORDERED: Vancomycin 1,000 MG in D5% in Water 250 ML IVPB ONE ×2 (12:06→14:00)
[2017-09-30] MEDS ORDERED: Cefepime HCl 2,000 MG in Water for inj. (sterile) 20 ML 20 ML IVP STA (12:06)
--- NOTE | 2017-09-30 12:06 | Emergency Department Note ---
Disposition Clinical Impression: Dyspnea Qualifiers: Dyspnea type: unspecified Qualified Code(s): R06.00 - Dyspnea, unspecified Sepsis Qualifiers: Sepsis type: sepsis due to unspecified organism Qualified Code(s): A41.9 - Sepsis, unspecified organism Pneumonia Qualifiers: Pneumonia type: due to unspecified organism Laterality: left Lung location: lower lobe of lung Qualified Code(s): J18.1 - Lobar pneumonia, unspecified organism Disposition: Admitted As Inpatient Condition: Fair SOB HPI - General Chief Complaint: ED Shortness of Breath/Dyspnea Stated Complaint: PHYLLIS Time Seen by Provider: 09/30/17 11:33 Source: patient Limitations: no limitations - History of Present Illness Mr. Blanchard is a 57 year old male with h/o oxygen dependent COPD, multiple admissions for COPD exacerbation, and recently diagnosed with right upper lobe pulmonary embolus 09/14/17 for which he has been on Xarelto. He presents with complaints of shortness of breath, pain on respiration, and facial swelling since this morning. He states that he has been taking his Xarelto as directed since being diagnosed with PE. He reports increased frequency in coughing from baseline and is producing thick yellow sputum. Shortness of breath is worse with movement and not improved on 4 L O2, which is his baseline. Additionally he reports alternating fevers and chills since this morning. Pt Subjective Complaint: shortness of breath - Related Data Home Medications Medication Instructions Recorded Confirmed Docusate [Colace] 100 mg PO BID 07/25/17 09/30/17 Ipratropium/Albuterol Neb [Duoneb] 3 ml IH Q4H PRN 07/25/17 09/30/17 Oxygen 4 l NS AD 07/25/17 09/30/17 Polyethylene Glycol 3350 17 gm PO DAILY PRN 07/25/17 09/30/17 Roflumilast [Daliresp] 500 mcg PO DAILY 07/25/17 09/30/17 Metoprolol [Lopressor] 25 mg PO BID 09/10/17 09/30/17 Omeprazole [PriLOSEC] 20 mg PO 0730 09/30/17 09/30/17 Previous Rx's Medication Instructions Recorded GuaiFENesin ER [Mucinex] 600 mg PO BID tbbp.12hr 07/28/17 Acetaminophen [Tylenol] 650 mg PO Q6HR PRN tablet 09/20/17 Albuterol Sulfate [Albuterol 2 puff IH Q4H PRN #1 inhaler 09/20/17 Inhaler] Budesonide Neb [Pulmicort Neb] 0.5 mg IH BID #1 inhsol 09/20/17 Furosemide [Lasix] 40 mg PO TID #90 tab 09/20/17 Mometasone/Formoterol [Dulera 200 2 puff IH BID #1 hfa.aer.ad 09/20/17 Mcg/5 Mcg Inhaler] Naloxone [Narcan] 0.4 mg IVP Q2MIN PRN inj 09/20/17 Rivaroxaban [Xarelto] 20 mg PO DAILY #60 tablet 09/20/17 Tiotropium [place] [Spiriva 2 puff IH DAILY #1 mist.inhal 09/20/17 Respimat] Umeclidinium [place] [Incruse 62.5 mcg IH DAILY #1 blst.w.dev 09/20/17 Ellipta] predniSONE [PredniSONE] See Taper PO DAILY #30 tablet 09/20/17 Allergies Allergy/AdvReac Type Severity Reaction Status Date / Time No Known Allergies Allergy Verified 09/30/17 15:06 Constitutional: Reports: as per HPI Cardiovascular: Reports: dyspnea on exertion Respiratory: Reports: as per HPI Musculoskeletal: Reports: back pain (Right upper back) Hematological/Lymphatic: Reports: as per HPI Past Medical History - Past Medical History Medical history: Reports: COPD Psychiatric history: Reports: no psych history - Social History Smoking Status: Former smoker Smokeless Tobacco Status: No Alcohol use: Reports: none Drug use: Reports: marijuana Physical Exam - General Limitations: no limitations General appearance: alert, anxious - Head Head exam: atraumatic, normocephalic - Eye Eye exam: Present: normal appearance, PERRL - Neck Neck exam: Present: normal inspection, full ROM - Chest Chest inspection: Present: normal inspection, symmetric chest wall rise - Respiratory Respiratory exam: Present: other (Increased respiratory effort, rhonchorous breath sounds bilaterally) - Cardiovascular Cardiovascular exam: Present: normal rhythm, tachycardia, +S1, +S2 - Abdominal Exam Abdominal exam: Present: soft, tenderness (Mild, patient reports he has a hernia ). Absent: distention, rebound, rigidity - Extremities Exam Extremities exam: Present: normal inspection, calf tenderness (Right, tender on palpation). Absent: pedal edema - Back Exam Back exam: Present: normal inspection. Absent: tenderness - Neurological Exam Neurological exam: Present: alert, oriented X3, other (Moves all extremities spontaneously, mentation intact). Absent: motor sensory deficit - Skin Skin exam: Present: warm, dry, intact Course Vital Signs Temperature 98.2 F 09/30/17 11:10 Pulse Rate 136 09/30/17 11:10 Respiratory Rate 20 09/30/17 11:10 Blood Pressure 124/77 09/30/17 11:10 O2 Sat by Pulse Oximetry 90 09/30/17 11:10 Temperature 98.2 F 09/30/17 11:10 Pulse Rate 106 09/30/17 16:57 Respiratory Rate 28 09/30/17 16:57 Blood Pressure 115/84 09/30/17 16:57 O2 Sat by Pulse Oximetry 94 09/30/17 16:57 Oxygen Delivery Oxygen Delivery Nasal Cannula Shortness of Breath/Dyspnea - MDM Narrative Medical decision making narrative: 57-year-old gentleman with PMH of oxygen dependent COPD, multiple admissions for COPD exacerbation, and recently diagnosed with RUL pulmonary embolism less than 1 month ago presenting for shortness of breath since this AM. Patient afebrile and tachycardic on arrival, saturating low 90's on 4L NC. Initial lab work shows no leukocytosis, CO2 slightly elevated at 31, lactic acid 2.2, troponin 0.03. CXR shows possible pneumonia with left basilar atelectasis. While in CT, patient became acutely more short of breath and was unable to tolerate laying flat, he was visibly working to breathe. He was placed on BiPAP and his O2 saturation came up to the low 90s and he felt a little bit better. He was given IV steroids for COPD exacerbation and empiric IV antibiotics started for suspected HCAP PNA. CTA chest did not show definite central pulmonary embolus; multifocal pneumonia greatest in left lower lobe. Patient meets sepsis criteria on admission with tachycardia, increased RR, and lactate > 2. Patient was accepted for admission to hospitalist service for further evaluation and management. - Medical Records Medical records reviewed: Yes I reviewed the patient's medical records. - Lab Data Lab results reviewed: Yes I reviewed the patient's lab results. Result diagrams: 09/30/17 11:14 09/30/17 11:14 Lab Results 09/30/17 09/30/17 09/30/17 Range/Units 11:14 11:14 11:55 WBC 8.7 (4.3-11.1) K/mcL RBC 4.14 L (4.19-5.50) M/mcL Hgb 12.0 L (12.9-16.9) g/dL Hct 36.5 L (37.5-50.1) % MCV 88.2 (83.0-100.0) fL MCH 29.0 (28.0-33.3) pg MCHC 32.9 (31.6-35.5) g/dL RDW 15.4 H (11.5-14.5) % Plt Count 313 (140-400) K/mcL MPV 9.1 L (9.4-12.4) fL Immature Gran % 0.3 (0-4) % Seg Neutrophils % 81.5 % Lymphocytes % 14.6 % Monocytes % 2.8 % Eosinophils % 0.7 % Basophils % 0.1 % Neutrophils # 7.1 (1.6-8.9) K/mcL Lymphocytes # 1.3 (0.6-4.6) K/mcL Monocytes # 0.2 (0.0-1.3) K/mcL Eosinophils # 0.1 (0.0-0.6) K/mcL Basophils # 0.0 (0.0-0.2) K/mcL Sodium 130 L (136-145) mEq/L Potassium 3.4 L (3.5-5.1) mEq/L Chloride 89 L (98-107) mEq/L Carbon Dioxide 31 H (23-29) mEq/L BUN 17 (6-20) mg/dL Creatinine 0.47 L (0.70-1.30) mg/dL Est GFR ( Amer) > 60 (> 60) Est GFR (Non-Af Amer) > 60 (> 60) BUN/Creatinine Ratio 36 H (6-26) Glucose 108 H (70-105) mg/dL Calculated Osmolality 272 L (280-300) Lactic Acid 2.2 (0.5-2.2) mmol/L Calcium 9.6 (8.6-10.3) mg/dL Troponin I 0.03 (< 0.04) ng/mL 09/30/17 Range/Units 17:09 WBC (4.3-11.1) K/mcL RBC (4.19-5.50) M/mcL Hgb (12.9-16.9) g/dL Hct (37.5-50.1) % MCV (83.0-100.0) fL MCH (28.0-33.3) pg MCHC (31.6-35.5) g/dL RDW (11.5-14.5) % Plt Count (140-400) K/mcL MPV (9.4-12.4) fL Immature Gran % (0-4) % Seg Neutrophils % % Lymphocytes % % Monocytes % % Eosinophils % % Basophils % % Neutrophils # (1.6-8.9) K/mcL Lymphocytes # (0.6-4.6) K/mcL Monocytes # (0.0-1.3) K/mcL Eosinophils # (0.0-0.6) K/mcL Basophils # (0.0-0.2) K/mcL Sodium (136-145) mEq/L Potassium (3.5-5.1) mEq/L Chloride (98-107) mEq/L Carbon Dioxide (23-29) mEq/L BUN (6-20) mg/dL Creatinine (0.70-1.30) mg/dL Est GFR ( Amer) (> 60) Est GFR (Non-Af Amer) (> 60) BUN/Creatinine Ratio (6-26) Glucose (70-105) mg/dL Calculated Osmolality (280-300) Lactic Acid 4.9 H* (0.5-2.2) mmol/L Calcium (8.6-10.3) mg/dL Troponin I (< 0.04) ng/mL - Radiology Data Radiology results reviewed: Yes I reviewed the patient's radiology results.
[2017-09-30] MEDS ORDERED: Isovue-370 500 ML INFUS..BTL IV ONE (12:08)
--- NOTE | 2017-09-30 12:15 | Emergency Department Note ---
Disposition Clinical Impression: Dyspnea Qualifiers: Dyspnea type: unspecified Qualified Code(s): R06.00 - Dyspnea, unspecified Sepsis Qualifiers: Sepsis type: sepsis due to unspecified organism Qualified Code(s): A41.9 - Sepsis, unspecified organism Pneumonia Qualifiers: Pneumonia type: due to unspecified organism Laterality: left Lung location: lower lobe of lung Qualified Code(s): J18.1 - Lobar pneumonia, unspecified organism Disposition: Admitted As Inpatient Condition: Fair Time of Disposition: 12:16 SOB HPI - General Chief Complaint: ED Shortness of Breath/Dyspnea Stated Complaint: PHYLLIS Time Seen by Provider: 09/30/17 11:33 Source: patient Limitations: no limitations - Related Data Home Medications Medication Instructions Recorded Confirmed Docusate [Colace] 100 mg PO BID 07/25/17 09/30/17 Ipratropium/Albuterol Neb [Duoneb] 3 ml IH Q4H PRN 07/25/17 09/30/17 Oxygen 4 l NS AD 07/25/17 09/30/17 Polyethylene Glycol 3350 17 gm PO DAILY PRN 07/25/17 09/30/17 Roflumilast [Daliresp] 500 mcg PO DAILY 07/25/17 09/30/17 Metoprolol [Lopressor] 25 mg PO BID 09/10/17 09/30/17 Omeprazole [PriLOSEC] 20 mg PO 0730 09/30/17 09/30/17 Previous Rx's Medication Instructions Recorded GuaiFENesin ER [Mucinex] 600 mg PO BID tbbp.12hr 07/28/17 Acetaminophen [Tylenol] 650 mg PO Q6HR PRN tablet 09/20/17 Albuterol Sulfate [Albuterol 2 puff IH Q4H PRN #1 inhaler 09/20/17 Inhaler] Budesonide Neb [Pulmicort Neb] 0.5 mg IH BID #1 inhsol 09/20/17 Furosemide [Lasix] 40 mg PO TID #90 tab 09/20/17 Mometasone/Formoterol [Dulera 200 2 puff IH BID #1 hfa.aer.ad 09/20/17 Mcg/5 Mcg Inhaler] Naloxone [Narcan] 0.4 mg IVP Q2MIN PRN inj 09/20/17 Rivaroxaban [Xarelto] 20 mg PO DAILY #60 tablet 09/20/17 Tiotropium [place] [Spiriva 2 puff IH DAILY #1 mist.inhal 09/20/17 Respimat] Umeclidinium [place] [Incruse 62.5 mcg IH DAILY #1 blst.w.dev 09/20/17 Ellipta] predniSONE [PredniSONE] See Taper PO DAILY #30 tablet 09/20/17 Allergies Allergy/AdvReac Type Severity Reaction Status Date / Time No Known Allergies Allergy Verified 09/30/17 15:06 Past Medical History - Past Medical History Medical history: Reports: COPD Psychiatric history: Reports: no psych history - Social History Smoking Status: Former smoker Smokeless Tobacco Status: No Alcohol use: Reports: none Drug use: Reports: marijuana Physical Exam - General Limitations: no limitations General appearance: alert, anxious Course Vital Signs Temperature 98.2 F 09/30/17 11:10 Pulse Rate 136 09/30/17 11:10 Respiratory Rate 20 09/30/17 11:10 Blood Pressure 124/77 09/30/17 11:10 O2 Sat by Pulse Oximetry 90 09/30/17 11:10 Temperature 98.2 F 09/30/17 11:10 Pulse Rate 106 09/30/17 16:57 Respiratory Rate 28 09/30/17 16:57 Blood Pressure 115/84 09/30/17 16:57 O2 Sat by Pulse Oximetry 94 09/30/17 16:57 Oxygen Delivery Oxygen Delivery Nasal Cannula Shortness of Breath/Dyspnea - Lab Data Result diagrams: 09/30/17 11:14 09/30/17 11:14 Lab Results 09/30/17 09/30/17 09/30/17 Range/Units 11:14 11:14 11:55 WBC 8.7 (4.3-11.1) K/mcL RBC 4.14 L (4.19-5.50) M/mcL Hgb 12.0 L (12.9-16.9) g/dL Hct 36.5 L (37.5-50.1) % MCV 88.2 (83.0-100.0) fL MCH 29.0 (28.0-33.3) pg MCHC 32.9 (31.6-35.5) g/dL RDW 15.4 H (11.5-14.5) % Plt Count 313 (140-400) K/mcL MPV 9.1 L (9.4-12.4) fL Immature Gran % 0.3 (0-4) % Seg Neutrophils % 81.5 % Lymphocytes % 14.6 % Monocytes % 2.8 % Eosinophils % 0.7 % Basophils % 0.1 % Neutrophils # 7.1 (1.6-8.9) K/mcL Lymphocytes # 1.3 (0.6-4.6) K/mcL Monocytes # 0.2 (0.0-1.3) K/mcL Eosinophils # 0.1 (0.0-0.6) K/mcL Basophils # 0.0 (0.0-0.2) K/mcL Sodium 130 L (136-145) mEq/L Potassium 3.4 L (3.5-5.1) mEq/L Chloride 89 L (98-107) mEq/L Carbon Dioxide 31 H (23-29) mEq/L BUN 17 (6-20) mg/dL Creatinine 0.47 L (0.70-1.30) mg/dL Est GFR ( Amer) > 60 (> 60) Est GFR (Non-Af Amer) > 60 (> 60) BUN/Creatinine Ratio 36 H (6-26) Glucose 108 H (70-105) mg/dL Calculated Osmolality 272 L (280-300) Lactic Acid 2.2 (0.5-2.2) mmol/L Calcium 9.6 (8.6-10.3) mg/dL Troponin I 0.03 (< 0.04) ng/mL - EKG Data EKG attestation: Yes I reviewed and interpreted this EKG. EKG results narrative: ECG - interpreted by ED physician. Rate 136 sinus tachycardia, no STEMI Attestation Statement - Attestation Attestation: I, Charlie Mcgovern, examined this patient and my medical decision-making was reviewed with the [employer] RET[employer] INSTALLER/PA/Advanced Practice Nurse/Resident Physician. I agree with the documented findings, disposition and treatment plan as described except to the extent set forth below. 57-year-old male presents emergency Department with concerns of increased dyspnea over the past 3-4 days. Patient states that this feels similar to his previous COPD exacerbation. Patient also describes cough productive of yellow- green sputum. Reports subjective fever and chills but has not taken his temperature. Patient denies recent trauma. He was recently diagnosed with PE for which she is taking Xarelto. States he has not missed any doses of his Xarelto. Chest x-ray shows left basilar atelectasis. Patient tachycardic to 1: 30 on initial evaluation with wheezing present in the bilateral posterior lung carmen. No abdominal tenderness to palpation. Although he does state that he occasionally has a hernia that extrudes from the abdominal wall which has to be reduced otherwise causes pain. No pain for the hernia in the emergency department. We will obtain CT of the chest to evaluate PE as well as likely left lower lobe pneumonia. Patient will likely be admitted for further care and observation of possible pneumonia versus COPD exacerbation. The high probability of a clinically significant, sudden or life threatening deterioration of the respiratory and cardiovascular system(s) required my full and direct attention, intervention and personal management. The aggregate critical care time was 45 minutes. This time is in addition to time spent performing reported procedures but includes the following: x Data Review and interpretation x Patient assessment and monitoring of vital signs x Documentation x Medication orders and management
[2017-09-30 12:18] LABS: Basophils % 0.1 %; Eosinophils # 0.1 K/mcL (0.0-0.6); Eosinophils % 0.7 %; Hematocrit 36.5 % (37.5-50.1); Immature Granulocytes % 0.3 % (0-4); Lymphocytes # 1.3 K/mcL (0.6-4.6); Lymphocytes % 14.6 %; Mean Corpuscular HGB Conc 32.9 g/dL (31.6-35.5); Mean Corpuscular Volume 88.2 fL (83.0-100.0); Mean Platelet Volume 9.1 fL (9.4-12.4); Monocytes # 0.2 K/mcL (0.0-1.3); Monocytes % 2.8 %; Neutrophils # 7.1 K/mcL (1.6-8.9); Platelet Count 313 K/mcL (140-400); Red Blood Count 4.14 M/mcL (4.19-5.50); Red Cell Distribution Width 15.4 % (11.5-14.5); Segmented Neutrophils % 81.5 %
[2017-09-30 12:40] LABS: Troponin I 0.03 ng/mL (< 0.04)
[2017-09-30 12:43] LABS: BUN/Creatinine Ratio 36 (6-26); Blood Urea Nitrogen 17 mg/dL (6-20); Calcium 9.6 mg/dL (8.6-10.3); Carbon Dioxide 31 mEq/L (23-29); Chloride 89 mEq/L (98-107); Glucose 108 mg/dL (70-105); Osmolality,Calculated 272 (280-300); Potassium 3.4 mEq/L (3.5-5.1); Sodium 130 mEq/L (136-145); eGFR For African Americans > 60 (> 60); eGFR For Non-African Americans > 60 (> 60)
[2017-09-30] MEDS ORDERED: 0.9 % Sodium Chloride 1,000 ML IVC ONE ×2 (12:56→17:53)
[2017-09-30] MEDS ORDERED: *HR* FentaNYL (PF) 100 MCG/2 ML VIAL IVP ONE (13:37)
[2017-09-30] MEDS ORDERED: 0.9 % Sodium Chloride 1,000 ML IVC SCH (18:00)
[2017-09-30 19:40] LABS: Adenovirus Not Detected (Not Detect); Bordetella Pertussis Not Detected (Not Detect); Chlamydophila pneumoniae Not Detected (Not Detect); Coronavirus 229E Not Detected (Not Detect); Coronavirus HKU1 Not Detected (Not Detect); Coronavirus NL63 Not Detected (Not Detect); Coronavirus OC43 Not Detected (Not Detect); Human Metapneumovirus Not Detected (Not Detect); Human Rhinovirus/Enterovirus Not Detected (Not Detect); Influenza A Subtype 2009 H1 Not Detected (Not Detect); Influenza A Untypeable Not Detected (Not Detect); Influenza B Not Detected (Not Detect); Mycoplasma pneumoniae Not Detected (Not Detect); Parainfluenza Virus 1 Not Detected (Not Detect); Parainfluenza Virus 2 Not Detected (Not Detect); Parainfluenza Virus 3 Not Detected (Not Detect); Parainfluenza Virus 4 Not Detected (Not Detect); Respiratory Syncytial Virus Not Detected (Not Detect)
[2017-09-30] MEDS ORDERED: Naloxone 0.4 MG/ML INJ IVP PRN (20:17)
[2017-09-30] MEDS ORDERED: Acetaminophen 325 MG TABLET PO PRN (20:17)
[2017-09-30] MEDS ORDERED: Ipratropium/Albuterol Neb 3 ML IH PRN (20:23)
[2017-09-30] MEDS ORDERED: NON-FORMULARY MEDICATION 1 EACH EACH (Oxygen [Oxygen] 4 L) NS SCH (20:30)
--- NOTE | 2017-09-30 20:32 | Internal Med History&Physical ---
Date of Encounter: 09/30/17 Time of Encounter: 19:30 Internal Medicine - H&P: HPI Chief complaint: Shortness of breath Admitted From: Home Plans for Post Hospital Care: Home History of present illness: Mr. Blanchard is a 57 year old male presented to ER for shortness of breath. Past medical history is significant for COPD on home oxygen, history of PE on xarelto. Patient said he starts to have difficulty breathing since yesterday night, patient also has cough with yellowish sputum. Patient has subjective fever and chills. He feels could and has a mild nausea, no vomiting. Patient denies runny nose or sore throat or diarrhea. He denies chest pain. In the emergency room, chest x-ray and CTA has been done. Shows left lower lobe pneumonia. Patient was recently hospitalized in 1 month ago. He was admitted as healthcare associated pneumonia and COPD exacerbation. Past Med Surg Social Fam HX - Past Medical History Medical history: COPD Psychiatric history: no psych history - Social History Smoking Status: Former smoker Smokeless Tobacco Status: No Alcohol use: none Drug use: marijuana - Family History Father Living Status: Hx Family Cancer: Yes (colon) Internal Medicine - H&P: Meds Docusate [Colace] 100 mg PO BID 07/25/17 [History] Ipratropium/Albuterol Neb [Duoneb] 3 ml IH Q4H PRN 07/25/17 [History] Oxygen 4 l NS AD 07/25/17 [History] Polyethylene Glycol 3350 17 gm PO DAILY PRN 07/25/17 [History] Roflumilast [Daliresp] 500 mcg PO DAILY 07/25/17 [History] GuaiFENesin ER [Mucinex] 600 mg PO BID tbbp.12hr 07/28/17 [Rx] Metoprolol [Lopressor] 25 mg PO BID 09/10/17 [History] Acetaminophen [Tylenol] 650 mg PO Q6HR PRN tablet 09/20/17 [Rx] Albuterol Sulfate [Albuterol Inhaler] 2 puff IH Q4H PRN #1 inhaler 09/20/17 [Rx] Budesonide Neb [Pulmicort Neb] 0.5 mg IH BID #1 inhsol 09/20/17 [Rx] Furosemide [Lasix] 40 mg PO TID #90 tab 09/20/17 [Rx] Mometasone/Formoterol [Dulera 200 Mcg/5 Mcg Inhaler] 2 puff IH BID #1 hfa.aer.ad 09/20/17 [Rx] Naloxone [Narcan] 0.4 mg IVP Q2MIN PRN inj 09/20/17 [Rx] Rivaroxaban [Xarelto] 20 mg PO DAILY #60 tablet 09/20/17 [Rx] Tiotropium [place] [Spiriva Respimat] 2 puff IH DAILY #1 mist.inhal 09/20/17 [Rx ] Umeclidinium [place] [Incruse Ellipta] 62.5 mcg IH DAILY #1 blst.w.dev 09/20/17 [Rx] predniSONE [PredniSONE] See Taper PO DAILY #30 tablet 09/20/17 [Rx] Omeprazole [PriLOSEC] 20 mg PO 0730 09/30/17 [History] 3 Allergy/AdvReac Type Severity Reaction Status Date / Time No Known Allergies Allergy Verified 09/30/17 15:06 All Systems PM: A 10-system review of systems was performed and is negative for pertinent findings except as documented above in the HPI. - Constitutional Vitals: Temp Pulse Resp BP Pulse Ox 98 F 97 14 134/79 93 09/30/17 17:47 09/30/17 17:47 09/30/17 17:47 09/30/17 17:47 09/30/17 18:20 General appearance: Present: A&O X 3, no acute distress, answers questions appropriately - Head Head exam: Present: atraumatic, normocephalic - Eye Eye exam: Present: PERRL, conjuntiva pink, sclera anicteric Pupils: Present: PERRL - Neck Neck exam general surgery: Present: supple, trachea midline. Absent: lymphadenopathy - Respiratory Respiratory exam: Present: CTAB. Absent: accessory muscle use, rales, rhonchi, wheezes Additional comments: Coarse breathing sounds bilaterally - Cardiovascular Cardiovascular exam: Present: RRR, +S1, +S2. Absent: diastolic murmur, gallop, rubs, systolic murmur - GI/Abdominal GI/Abdominal exam: Present: normal bowel sounds, soft, no peritoneal signs. Absent: distended, tenderness - Extremities Exam Extremities exam: Present: warm, radial pulses palpable and symmetrical. Absent : calf tenderness, cyanotic, pedal edema - Neurological Exam Neurological exam: Present: CN II-XII intact, oriented X3, no focal deficits. Absent: pronater drift, facial droop, speech deficit - Skin Skin exam: Present: dry, intact Internal Med - H&P Results - Labs CBC & Chem 7: 09/30/17 11:14 09/30/17 11:14 - Assessment and plan (1) COPD exacerbation Current Visit: Yes Status: Acute Assessment and plan: Patient has history of COPD. Has increased shortness of breath. Improved after nebulizer and steroid treatment. Consider COPD exacerbation. - Place patient on antibiotic, steroid, bronchodilator. - Continue supportive treatment. (2) Pneumonia Current Visit: Yes Status: Acute Assessment and plan: CTA and chest x-ray suggested left lower lobe pneumonia. Patient has productive cough and chills. Patient has been hospitalized recently. Consider healthcare associated pneumonia. - Patient will be treated with Vanco and cefepime - Follow up blood and sputum culture - Patient has elevated lactate, consider early sepsis versus hypoxia induced lactate elevation. Continue antibiotic and IV fluid. Lactate acid level trend down now. Will continue follow-up. Qualifiers: Pneumonia type: due to unspecified organism Laterality: left Lung location: lower lobe of lung Qualified Code(s): J18.1 - Lobar pneumonia, unspecified organism (3) Acute and chronic respiratory failure Current Visit: No Status: Acute Assessment and plan: Due to pneumonia and COPD exacerbation. Management as above Qualifiers: Respiratory failure complication: hypoxia Qualified Code(s): J96.21 - Acute and chronic respiratory failure with hypoxia (4) DVT prophylaxis Current Visit: No Status: Acute Assessment and plan: Patient is on xarelto. (5) Pulmonary embolism Current Visit: No Status: Acute Assessment and plan: History of PE, continue xarelto. CTA has been done, no new PE identified. Qualifiers: Pulmonary embolism type: other Chronicity: acute Acute cor pulmonale presence: without acute cor pulmonale Qualified Code(s): I26.99 - Other pulmonary embolism without acute cor pulmonale - Time Spent With Patient Total time spent is greater than 50% in coordination of care (as documented) at patient's floor/unit and/or counseling patient: 40 minutes Greater than 35 minutes
[2017-09-30] MEDS: Ipratropium/Albuterol Neb 3 ML IH SCH ×2 (21:58→23:24)
[2017-09-30] MEDS: Budesonide/Formoterol 160/4.5 MDI IH SCH (21:59)
[2017-09-30] MEDS: 0.9 % Sodium Chloride 1,000 ML IVC SCH (22:28)
[2017-09-30] MEDS: Furosemide 20 MG TABLET PO SCH (22:28)
[2017-09-30] MEDS: Cefepime HCl 2,000 MG in Water for inj. (sterile) 20 ML 20 ML IVP SCH (23:57)
[2017-10-01 03:16] LABS: Hematocrit 28.2 % (37.5-50.1); Immature Granulocytes % 0.3 % (0-4); Lymphocytes # 1.1 K/mcL (0.6-4.6); Lymphocytes % 16.7 %; Mean Corpuscular Hemoglobin 29.7 pg (28.0-33.3); Mean Corpuscular Volume 90.1 fL (83.0-100.0); Mean Platelet Volume 8.9 fL (9.4-12.4); Monocytes # 0.1 K/mcL (0.0-1.3); Monocytes % 1.2 %; Neutrophils # 5.4 K/mcL (1.6-8.9); Nucleated Red Blood Cells 0.3 /100 WBC (0); Platelet Count 245 K/mcL (140-400); Red Blood Count 3.13 M/mcL (4.19-5.50); Red Cell Distribution Width 15.3 % (11.5-14.5); Segmented Neutrophils % 81.8 %
[2017-10-01 03:21] LABS: Hemoglobin 9.3 g/dL (12.9-16.9)
[2017-10-01 03:34] LABS: BUN/Creatinine Ratio 37 (6-26); Blood Urea Nitrogen 13 mg/dL (6-20); Calcium 8.7 mg/dL (8.6-10.3); Carbon Dioxide 27 mEq/L (23-29); Chloride 105 mEq/L (98-107); Glucose 154 mg/dL (70-105); Magnesium 1.8 mg/dL (1.6-2.6); Osmolality,Calculated 287 (280-300); Potassium 4.2 mEq/L (3.5-5.1); Sodium 137 mEq/L (136-145); eGFR For African Americans > 60 (> 60); eGFR For Non-African Americans > 60 (> 60)
[2017-10-01] MEDS: Ipratropium/Albuterol Neb 3 ML IH SCH ×6 (03:40→23:17)
[2017-10-01] MEDS: Budesonide/Formoterol 160/4.5 MDI IH SCH ×2 (07:34→19:45)
[2017-10-01] MEDS ORDERED: *HR* Rivaroxaban 10 MG TABLET PO SCH (09:00)
[2017-10-01] MEDS ORDERED: predniSONE 20 MG TABLET PO SCH (09:00)
[2017-10-01] MEDS: (Roflumilast [Daliresp] 500 MCG) PO SCH (09:12)
[2017-10-01] MEDS: Furosemide 20 MG TABLET PO SCH ×3 (09:12→22:02)
--- NOTE | 2017-10-01 11:36 | Internal Med Progress Note ---
Date of Encounter: 10/01/17 Time of Encounter: 11:36 - Assessment and plan (1) DVT prophylaxis Current Visit: Yes Status: Acute Assessment and plan: Patient is on xarelto. (2) Acute and chronic respiratory failure Current Visit: Yes Status: Acute Assessment and plan: Due to pneumonia and COPD exacerbation. CTA and chest x-ray suggested left lower lobe pneumonia. Patient has productive cough and chills Continue Vanco and Cefepime Follow up blood and sputum culture Lactate on admission elevated possibly due to hypoxia, continue to monitor Continue duonebs and steroids Qualifiers: Respiratory failure complication: hypoxia Qualified Code(s): J96.21 - Acute and chronic respiratory failure with hypoxia (3) Pneumonia Current Visit: Yes Status: Acute Assessment and plan: as above Qualifiers: Pneumonia type: due to unspecified organism Laterality: left Lung location: lower lobe of lung Qualified Code(s): J18.1 - Lobar pneumonia, unspecified organism (4) Pulmonary embolism Current Visit: Yes Status: Chronic Assessment and plan: History of PE, continue xarelto. CTA has been done, no new PE identified. Qualifiers: Pulmonary embolism type: other Chronicity: acute Acute cor pulmonale presence: without acute cor pulmonale Qualified Code(s): I26.99 - Other pulmonary embolism without acute cor pulmonale (5) COPD exacerbation Current Visit: Yes Status: Acute Assessment and plan: as above - Time Spent With Patient Total time spent is greater than 50% in coordination of care (as documented) at patient's floor/unit and/or counseling patient: - Subjective Interval history: Seen and examined at the bedside He was just discharged on 09/20/17 after being manged for pneumonia, he had completed antibiotics course, sputum grew corynebacterium He is again re-admitted for PNA Patient stated he felt fine for a while, then started having SOB associated with cough and productive sputum. CTA done showed LLL PNA, worse than prior He has been restarted on broad spectrum antibiotics He denies new complains this morning, and states that he felt better We will consult pulm for recurrent PNA - Constitutional Vitals: Temp Pulse Resp BP Pulse Ox 97.7 F 77 16 114/63 97 10/01/17 11:34 10/01/17 11:34 10/01/17 11:34 10/01/17 11:34 10/01/17 11:34 General appearance: Present: A&O X 3, no acute distress, answers questions appropriately - Head Head exam: Present: atraumatic, normocephalic - Eye Eye exam: Present: PERRL, conjuntiva pink, sclera anicteric Pupils: Present: PERRL - Neck Neck exam general surgery: Present: supple, trachea midline. Absent: lymphadenopathy - Respiratory Respiratory exam: Present: rhonchi, wheezes - Cardiovascular Cardiovascular exam: Present: RRR, +S1, +S2. Absent: diastolic murmur, gallop, rubs, systolic murmur - GI/Abdominal GI/Abdominal exam: Present: normal bowel sounds, soft, no peritoneal signs. Absent: distended, tenderness - Extremities Exam Extremities exam: Present: warm, radial pulses palpable and symmetrical. Absent : calf tenderness, cyanotic, pedal edema - Neurological Exam Neurological exam: Present: alert, CN II-XII intact, oriented X3, no focal deficits. Absent: pronater drift, facial droop, speech deficit - Skin Skin exam: Present: dry, intact Internal Medicine: Result - Labs CBC & Chem 7: 10/01/17 03:01 10/01/17 03:01 Labs: Short CBC 10/01/17 Range/Units 03:01 WBC 6.6 (4.3-11.1) K/mcL Hgb 9.3 L D (12.9-16.9) g/dL Hct 28.2 L (37.5-50.1) % Plt Count 245 (140-400) K/mcL Neutrophils # 5.4 (1.6-8.9) K/mcL BMP 10/01/17 03:01 Sodium 137 Potassium 4.2 Chloride 105 Carbon Dioxide 27 BUN 13 Creatinine 0.35 L Glucose 154 H Calcium 8.7 Consult Discharge Plan - Plan Referrals: Marilyn Rojas, MATHEMATICAL ENGINEER [Primary Care Provider] -
[2017-10-01] MEDS: Cefepime HCl 2,000 MG in Water for inj. (sterile) 20 ML 20 ML IVP SCH (13:55)
[2017-10-01] MEDS ORDERED: Azithromycin 500 MG in D5% in Water 250 ML IVPB SCH (18:00)
[2017-10-02] MEDS: MethylPREDNISolone 40 MG/ML VIAL IVP SCH ×5 (00:33→23:30)
[2017-10-02] MEDS: Cefepime HCl 2,000 MG in Water for inj. (sterile) 20 ML 20 ML IVP SCH ×2 (02:42→11:55)
[2017-10-02 03:35] LABS: Basophils % 0.2 %; Eosinophils % 1.3 %; Hematocrit 27.7 % (37.5-50.1); Hemoglobin 8.8 g/dL (12.9-16.9); Immature Granulocytes % 0.5 % (0-4); Lymphocytes % 8.6 %; Mean Corpuscular HGB Conc 31.8 g/dL (31.6-35.5); Mean Corpuscular Hemoglobin 28.7 pg (28.0-33.3); Mean Corpuscular Volume 90.2 fL (83.0-100.0); Mean Platelet Volume 9.3 fL (9.4-12.4); Monocytes % 1.1 %; Platelet Count 239 K/mcL (140-400); Red Blood Count 3.07 M/mcL (4.19-5.50); Red Cell Distribution Width 15.6 % (11.5-14.5); Segmented Neutrophils % 88.3 %
[2017-10-02 03:36] LABS: Eosinophils # 0.1 K/mcL (0.0-0.6); Lymphocytes # 0.5 K/mcL (0.6-4.6); Monocytes # 0.1 K/mcL (0.0-1.3); Neutrophils # 5.5 K/mcL (1.6-8.9)
[2017-10-02 03:52] LABS: BUN/Creatinine Ratio 18 (6-26); Blood Urea Nitrogen 7 mg/dL (6-20); Calcium 8.4 mg/dL (8.6-10.3); Carbon Dioxide 29 mEq/L (23-29); Chloride 105 mEq/L (98-107); Glucose 133 mg/dL (70-105); Osmolality,Calculated 290 (280-300); Potassium 3.7 mEq/L (3.5-5.1); Sodium 140 mEq/L (136-145); eGFR For African Americans > 60 (> 60); eGFR For Non-African Americans > 60 (> 60)
[2017-10-02] MEDS: Ipratropium/Albuterol Neb 3 ML IH SCH ×6 (04:39→23:51)
[2017-10-02] MEDS: 0.9 % Sodium Chloride 1,000 ML IVC SCH (05:26)
[2017-10-02] MEDS: Budesonide/Formoterol 160/4.5 MDI IH SCH ×2 (07:42→19:54)
[2017-10-02] MEDS ORDERED: Aminoglycoside Consult 1 EACH MC ONE (08:16)
--- NOTE | 2017-10-02 09:16 | Internal Med Progress Note ---
<Jacques Connolly - Last Filed: 10/02/17 14:59> Date of Encounter: 10/02/17 Time of Encounter: 09:10 - Assessment and plan (1) Acute and chronic respiratory failure Current Visit: Yes Status: Acute Assessment and plan: Due to pneumonia and COPD exacerbation CTA and chest x-ray suggested left lower lobe pneumonia Patient has productive cough though reports this is close to his baseline Blood cultures taken on 09/30/17 are preliminarily negative Sputum culture from 09/30/17 negative Legionella and strep antigen negative We will stop vancomycin and cefepime Start Levaquin Continue duonebs and steroids Qualifiers: Respiratory failure complication: hypoxia Qualified Code(s): J96.21 - Acute and chronic respiratory failure with hypoxia (2) Pneumonia Current Visit: Yes Status: Acute Assessment and plan: as above Qualifiers: Pneumonia type: due to unspecified organism Laterality: left Lung location: lower lobe of lung Qualified Code(s): J18.1 - Lobar pneumonia, unspecified organism (3) Pulmonary embolism Current Visit: Yes Status: Chronic Assessment and plan: History of PE diagnosed in late August 2017 CTA has been done, no new PE identified Patient has only received 3 weeks of normal 3 month treatment We will hold withdrawal flow on account of suspected GI bleed Qualifiers: Pulmonary embolism type: other Chronicity: acute Acute cor pulmonale presence: without acute cor pulmonale Qualified Code(s): I26.99 - Other pulmonary embolism without acute cor pulmonale (4) DVT prophylaxis Current Visit: Yes Status: Acute Assessment and plan: We will hold patient's proton account of suspected GI bleed Start EPCDs (5) COPD exacerbation Current Visit: Yes Status: Acute Assessment and plan: as above - Time Spent With Patient Total time spent is greater than 50% in coordination of care (as documented) at patient's floor/unit and/or counseling patient: - Subjective Interval history: Patient does not have a lot of insight as to his breathing status. He reports that he had stopped taking his prednisone for a couple days prior to presentation. He reports that his breathing is stable today that he has been coughing up a white/yellow mucus which is normal for him. It was noticed that he is had a drop in his hemoglobin last couple days. Part of this may be dilutional because he has been on normal saline, but is concerning given his Xarelto usage in the past 3 weeks. He denies any diarrhea , constipation, hematochezia, or melena. - Constitutional Vitals: Temp Pulse Resp BP Pulse Ox 98.7 F 68 16 123/65 95 10/02/17 07:24 10/02/17 07:24 10/02/17 07:44 10/02/17 07:24 10/02/17 07:44 General appearance: Present: A&O X 3, no acute distress, answers questions appropriately Exam: General: Cooperative, pleasant, no acute distress, alert and oriented 3, answers questions appropriately HEENT: Normocephalic, atraumatic, neck supple, trachea midline, Conjunctiva pink , sclera anicteric, oral mucosa moist Respiratory: No accessory muscle usage, slight wheeze present on left lung Cardiovascular: Regular rate and rhythm, S1 and S2 present, no murmurs/rubs/ gallops/clicks appreciated GI/abdominal: Nondistended, nontender, soft, normal bowel sounds, no peritoneal signs Extremities: No calf tenderness, noncyanotic, no pedal edema appreciated, warm, lower extremity pulses palpable and symmetrical Neurological: Alert and oriented 3, no facial droop, no focal deficits Skin: Dry, intact, normal color Rectal: Prostate smooth, slight prostatomegaly, trace amount of loose stool present in rectal vault, no fissures or lesions seen, stool brown without signs of red streaks or black coloration Internal Medicine: Result - Labs CBC & Chem 7: 10/02/17 03:20 10/02/17 03:20 Labs: Short CBC 10/02/17 Range/Units 03:20 WBC 6.2 (4.3-11.1) K/mcL Hgb 8.8 L (12.9-16.9) g/dL Hct 27.7 L (37.5-50.1) % Plt Count 239 (140-400) K/mcL Neutrophils # 5.5 (1.6-8.9) K/mcL BMP 10/02/17 03:20 Sodium 140 Potassium 3.7 Chloride 105 Carbon Dioxide 29 BUN 7 Creatinine 0.40 L Glucose 133 H Calcium 8.4 L Consult Discharge Plan - Plan Referrals: Marilyn Rojas, ACTING PROFESSOR [Primary Care Provider] - <Phong Muir - Last Filed: 10/02/17 15:35> Date of Encounter: 10/02/17 - Assessment and plan (1) DVT prophylaxis Current Visit: Yes Status: Acute (2) Acute and chronic respiratory failure Current Visit: Yes Status: Acute Qualifiers: Respiratory failure complication: hypoxia Qualified Code(s): J96.21 - Acute and chronic respiratory failure with hypoxia (3) Pneumonia Current Visit: Yes Status: Acute Qualifiers: Pneumonia type: due to unspecified organism Laterality: left Lung location: lower lobe of lung Qualified Code(s): J18.1 - Lobar pneumonia, unspecified organism (4) Pulmonary embolism Current Visit: Yes Status: Chronic Qualifiers: Pulmonary embolism type: other Chronicity: acute Acute cor pulmonale presence: without acute cor pulmonale Qualified Code(s): I26.99 - Other pulmonary embolism without acute cor pulmonale (5) COPD exacerbation Current Visit: Yes Status: Acute - Time Spent With Patient Total time spent is greater than 50% in coordination of care (as documented) at patient's floor/unit and/or counseling patient: - Constitutional Vitals: Temp Pulse Resp BP Pulse Ox 98.3 F 71 16 127/68 96 10/02/17 12:03 10/02/17 12:03 10/02/17 12:03 10/02/17 12:03 10/02/17 12:03 Internal Medicine: Result - Labs CBC & Chem 7: 10/02/17 03:20 10/02/17 03:20 Labs: Short CBC 10/02/17 Range/Units 03:20 WBC 6.2 (4.3-11.1) K/mcL Hgb 8.8 L (12.9-16.9) g/dL Hct 27.7 L (37.5-50.1) % Plt Count 239 (140-400) K/mcL Neutrophils # 5.5 (1.6-8.9) K/mcL BMP 10/02/17 03:20 Sodium 140 Potassium 3.7 Chloride 105 Carbon Dioxide 29 BUN 7 Creatinine 0.40 L Glucose 133 H Calcium 8.4 L - Attending Attestation 57 M with hx of PE on Xarelto, COPD, Chronic hypercapneic and hypoxic resp failure, admitted for HCAP and COPDE. Found to be having worsening anemia, xarelto held 10/01. No new complains today, Hb trending down, awaiting GI eval. Culture negative, recently completed treatment for corynebacterium in sputum, consider discontinuation of vancomycin, NPO from NE for endoscopy , continue current management, rest of details as in resident physician's documentation
[2017-10-02] MEDS: (Roflumilast [Daliresp] 500 MCG) PO SCH (09:37)
[2017-10-02] MEDS: Furosemide 20 MG TABLET PO SCH ×3 (09:37→21:57)
--- NOTE | 2017-10-02 13:14 | Electrocardiograph Report ---
[place] [id number] Test Date: 2017-09-30 Pat Name: Jason Blanchard Department: [id number] Room: 2N2 Gender: M Faculty Dean: DEMOND : 1960 Requested By: Genesis Mcgovern Order Number: [id number] Reading MD: Piyush Ferreira Measurements Intervals [place] Rate: 136 P: 63 NH: 143 QRS: 25 QRSD: 97 T: 74 QT: 330 QTc: 410 Interpretive Statements SINUS TACHYCARDIA Electronically Signed On 10-02-2017 9:56:35 EDT by Piyush Ferreira
[2017-10-02] MEDS ORDERED: Levofloxacin 750 MG/150 ML 750 MG/150 ML BAG IVPB SCH (15:00)
[2017-10-02 16:22] LABS: Hemoglobin 9.2 g/dL (12.9-16.9); Immature Granulocytes % 0.5 % (0-4); Lymphocytes # 0.7 K/mcL (0.6-4.6); Lymphocytes % 12.6 %; Mean Corpuscular HGB Conc 32.9 g/dL (31.6-35.5); Mean Corpuscular Hemoglobin 29.6 pg (28.0-33.3); Mean Platelet Volume 9.5 fL (9.4-12.4); Monocytes # 0.1 K/mcL (0.0-1.3); Monocytes % 1.2 %; Neutrophils # 4.8 K/mcL (1.6-8.9); Nucleated Red Blood Cells 0.5 /100 WBC (0); Platelet Count 268 K/mcL (140-400); Red Blood Count 3.11 M/mcL (4.19-5.50); Red Cell Distribution Width 15.4 % (11.5-14.5); Segmented Neutrophils % 85.7 %
--- NOTE | 2017-10-02 21:08 | Anesthesia Evaluation PreOp ---
Date of Encounter: 10/02/17 Time of Encounter: 20:52 - Past History Planned Operation: EGD Cardiac History: HTN, Other (08/2017 - PE on Xarelto) Pulmonary History: Smoker, COPD (Severe - On O2 at home 4LPM, admitted with pneumonia and COPD exacerbation) HAIR BALER History: Denies Any Significant HX Other Medical History: Bleeding (Anemia, trending Hb this admission) Alcohol Use: none Drug use: marijuana Medications and Allergies Docusate [Colace] 100 mg PO BID 07/25/17 [History] Ipratropium/Albuterol Neb [Duoneb] 3 ml IH Q4H PRN 07/25/17 [History] Oxygen 4 l NS AD 07/25/17 [History] Polyethylene Glycol 3350 17 gm PO DAILY PRN 07/25/17 [History] Roflumilast [Daliresp] 500 mcg PO DAILY 07/25/17 [History] GuaiFENesin ER [Mucinex] 600 mg PO BID tbbp.12hr 07/28/17 [Rx] Metoprolol [Lopressor] 25 mg PO BID 09/10/17 [History] Acetaminophen [Tylenol] 650 mg PO Q6HR PRN tablet 09/20/17 [Rx] Albuterol Sulfate [Albuterol Inhaler] 2 puff IH Q4H PRN #1 inhaler 09/20/17 [Rx] Budesonide Neb [Pulmicort Neb] 0.5 mg IH BID #1 inhsol 09/20/17 [Rx] Furosemide [Lasix] 40 mg PO TID #90 tab 09/20/17 [Rx] Mometasone/Formoterol [Dulera 200 Mcg/5 Mcg Inhaler] 2 puff IH BID #1 hfa.aer.ad 09/20/17 [Rx] Naloxone [Narcan] 0.4 mg IVP Q2MIN PRN inj 09/20/17 [Rx] Rivaroxaban [Xarelto] 20 mg PO DAILY #60 tablet 09/20/17 [Rx] Tiotropium [place] [Spiriva Respimat] 2 puff IH DAILY #1 mist.inhal 09/20/17 [Rx ] Umeclidinium [place] [Incruse Ellipta] 62.5 mcg IH DAILY #1 blst.w.dev 09/20/17 [Rx] predniSONE [PredniSONE] See Taper PO DAILY #30 tablet 09/20/17 [Rx] Omeprazole [PriLOSEC] 20 mg PO 0730 09/30/17 [History] 3 Allergy/AdvReac Type Severity Reaction Status Date / Time No Known Allergies Allergy Verified 09/30/17 15:06 - Meds/Allergy Pre-op Review Medications Reviewed: Yes Allergies Reviewed: Yes Beta Blockers on Current Med List: Yes Anesthesia Results - Labs 10/02/17 15:57 10/02/17 03:20 Laboratory Tests 10/01/17 10/02/17 03:01 03:20 Calcium 8.4 L Magnesium 1.8 - Imaging EKG: report reviewed (Sinus tachycardia) Additional studies: CTA 09/30/2017: Limited by motion. No definite central pulmonary embolus. Peripheral branches are not well evaluated Multifocal pneumonia, greatest in the left lower lobe, increased compared to prior. Given the nodular appearance, recommend follow-up to radiographic resolution. There is a background of severe pulmonary emphysema. Small mediastinal nodes and hilar nodes are seen, likely reactive. TTE 07/27/2017: LVEF 55%. Normal LV chamber size, wall thickness and function. Mild left ventricular diastolic dysfunction. Normal right ventricular structure and function. Mild mitral regurgitation. No pulmonary hypertension. Anesthesia Exam Vital Signs/O2 Sat/Glucose, Most Recent Temp Pulse Resp BP Pulse Ox 98.3 F 86 18 126/78 97 10/02/17 12:03 10/02/17 16:58 10/02/17 19:55 10/02/17 16:58 10/02/17 19:55 Height: 1.7 m Weight: 87 kg BMI: 30 NPO: On clears, planned NPO after MN - HEENT Mallampati: II Teeth: Edentulous Oral Opening: Greater than 3 - HAIR BALER LOC: Oriented - Cardiac Rhythm: Regular - Pulmonary Breath Sounds: bilateral Rhonchi Anesthesia Assess/Plan ASA Score: 4 Modified [place] Scale for Level of Consciousness: Cooperative, oriented, and tranquil Anesthetic Plan: General, MAC Monitoring Plan: Standard Monitors Recovery Plan: PACU Anes Supervising Prov Stmt: Patient informed and consented. Patient unlikely to tolerate MAC, might be more suitable for GA. Risks, benefits, and alternatives discussed. Patient wishes to proceed.
[2017-10-02] MEDS: Sennosides/Docusate Sodium TABLET PO PRN (22:05)
[2017-10-03] MEDS: Ipratropium/Albuterol Neb 3 ML IH SCH ×6 (03:56→23:25)
[2017-10-03 05:02] LABS: Hematocrit 27.9 % (37.5-50.1); Hemoglobin 9.4 g/dL (12.9-16.9); Lymphocytes # 0.8 K/mcL (0.6-4.6); Lymphocytes % 12.3 %; Mean Corpuscular HGB Conc 33.7 g/dL (31.6-35.5); Mean Corpuscular Hemoglobin 30.1 pg (28.0-33.3); Mean Corpuscular Volume 89.4 fL (83.0-100.0); Mean Platelet Volume 9.6 fL (9.4-12.4); Monocytes # 0.1 K/mcL (0.0-1.3); Monocytes % 1.3 %; Neutrophils # 5.3 K/mcL (1.6-8.9); Nucleated Red Blood Cells 0.8 /100 WBC (0); Platelet Count 267 K/mcL (140-400); Red Blood Count 3.12 M/mcL (4.19-5.50); Red Cell Distribution Width 15.3 % (11.5-14.5); Segmented Neutrophils % 85.4 %
[2017-10-03] MEDS: MethylPREDNISolone 40 MG/ML VIAL IVP SCH ×3 (06:38→17:43)
--- NOTE | 2017-10-03 09:23 | Internal Med Progress Note ---
<LisbethTeja Sven - Last Filed: 10/03/17 13:56> Date of Encounter: 10/03/17 Time of Encounter: 09:23 - Assessment and plan (1) Acute and chronic respiratory failure Current Visit: Yes Status: Acute Assessment and plan: Secondary to COPD exacerbation and HAP. CTA and CXR suggestive of Left lower lobe pneumonia. WBC 6.2, afebrile since admission. Continues to have baseline productive cough. Blood cultures preliminary negative Sputum culture negative Legionella and S. pneumonia negative. discontinued Vancomycin and Cefepime d2 Discontinue Levaquin d1 as patient has been having blurry vision 10/03/17. -Consider switching back to Azithromycin and Rocephin d0 -Continue with duonebs q4h and solumedrol 40mg q6h, consider switching to oral prednisone tomorrow Qualifiers: Respiratory failure complication: hypoxia Qualified Code(s): J96.21 - Acute and chronic respiratory failure with hypoxia (2) COPD exacerbation Current Visit: Yes Status: Acute Assessment and plan: per plan in assessment above. (3) Pneumonia Current Visit: Yes Status: Acute Assessment and plan: per plan in assesment above. Qualifiers: Pneumonia type: due to unspecified organism Laterality: left Lung location: lower lobe of lung Qualified Code(s): J18.1 - Lobar pneumonia, unspecified organism (4) DVT prophylaxis Current Visit: Yes Status: Acute Assessment and plan: Continue holding Xarelto at this time considering possible GI bleed. Hb stable at 9.4 after discontinuing IV fluids. Continue with EPCDs. (5) History of pulmonary embolism Current Visit: Yes Status: Acute Assessment and plan: Known history of PE in August 2017 CTA revealed multifocal pneumonia in left lower lobe and no new PE. Patient's Xarelto was held due to suspicion of possible GI bleed. Hb 9.4, stable. Consider resuming once endoscopy completed. - Time Spent With Patient Total time spent is greater than 50% in coordination of care (as documented) at patient's floor/unit and/or counseling patient: - Subjective Interval history: Patient reports doing okay overnight. Reports still some shortness of breath. Patient does also report some abdominal discomfort because hasn't had anything to eat since yesterday. Patient has not had a bowel movement since yesterday. Denies lightheadedness, dizziness, or sleepiness. Patient is scheduled for endoscopy later this afternoon, patient to continue NPO status. - Constitutional Vitals: Temp Pulse Resp BP Pulse Ox 97.6 F 49 16 142/87 95 10/03/17 07:16 10/03/17 07:16 10/03/17 07:36 10/03/17 07:16 10/03/17 07:36 General appearance: Present: A&O X 3, no acute distress, answers questions appropriately - Head Head exam: Present: atraumatic, normal inspection, normocephalic - Eye Eye exam: Present: EOMI, normal appearance - ENT ENT exam: Present: mucous membranes dry, normal exam - Neck Neck exam general surgery: Present: full ROM, normal inspection, supple, trachea midline - Respiratory Respiratory exam: Present: rhonchi. Absent: rales, respiratory distress, wheezes, tachypnea - Cardiovascular Cardiovascular exam: Present: RRR, +S1, +S2 - GI/Abdominal GI/Abdominal exam: Present: normal bowel sounds, soft. Absent: tenderness - Extremities Exam Extremities exam: Present: full ROM, normal inspection, warm, radial pulses palpable and symmetrical. Absent: pedal edema, tenderness - Skin Skin exam: Present: dry, intact, normal color, warm Internal Medicine: Result - Labs CBC & Chem 7: 10/03/17 04:33 10/02/17 03:20 Labs: Short CBC 10/02/17 10/03/17 Range/Units 15:57 04:33 WBC 5.6 6.2 (4.3-11.1) K/mcL Hgb 9.2 L 9.4 L (12.9-16.9) g/dL Hct 28.0 L 27.9 L (37.5-50.1) % Plt Count 268 267 (140-400) K/mcL Neutrophils # 4.8 5.3 (1.6-8.9) K/mcL Consult Discharge Plan - Plan Referrals: Marilyn Rojas, CREDIT CHARGE AUTHORIZER [Primary Care Provider] - <Kyle Osborne - Last Filed: 10/03/17 18:24> Date of Encounter: 10/03/17 - Assessment and plan (1) Acute and chronic respiratory failure Current Visit: Yes Status: Acute Qualifiers: Respiratory failure complication: hypoxia Qualified Code(s): J96.21 - Acute and chronic respiratory failure with hypoxia (2) COPD exacerbation Current Visit: Yes Status: Acute (3) Pneumonia Current Visit: Yes Status: Suspected Qualifiers: Pneumonia type: due to Pneumococcus Laterality: left Lung location: lower lobe of lung Qualified Code(s): J13 - Pneumonia due to Streptococcus pneumoniae (4) History of pulmonary embolism Current Visit: Yes Status: Acute (5) DVT prophylaxis Current Visit: Yes Status: Acute (6) Anemia Current Visit: Yes Status: Suspected Qualifiers: Anemia type: other cause Other causes of anemia: chronic disease, other Qualified Code(s): D63.8 - Anemia in other chronic diseases classified elsewhere (7) Essential hypertension Current Visit: No Status: Chronic - Time Spent With Patient Total time spent is greater than 50% in coordination of care (as documented) at patient's floor/unit and/or counseling patient: - Constitutional Vitals: Temp Pulse Resp BP Pulse Ox 98.2 F 63 16 124/72 95 10/03/17 14:03 10/03/17 14:03 10/03/17 16:18 10/03/17 14:03 10/03/17 16:18 Internal Medicine: Result - Labs CBC & Chem 7: 10/03/17 04:33 10/02/17 03:20 Labs: Short CBC 10/03/17 Range/Units 04:33 WBC 6.2 (4.3-11.1) K/mcL Hgb 9.4 L (12.9-16.9) g/dL Hct 27.9 L (37.5-50.1) % Plt Count 267 (140-400) K/mcL Neutrophils # 5.3 (1.6-8.9) K/mcL - Attending Attestation I examined this patient and my medical decision-making was reviewed with the Resident Physician on 10/03/17. I agree with the documented findings, disposition and treatment plan as described except to the extent set forth below. Mr Blanchard is currently admitted for resp failure due to COPD and PNA. He is anemic and currently having GI work up due to his need for anticoagulation. He remains moderate to high risk due to potential for worsening clinical status. Mr Blanchard is wanting to eat. He just returned from EGD and is to have colonoscopy tomorrow. No fever or chills. Breathing overall improved. Exam Alert Mild dyspnea at rest Mucus membranes dry Heart reg Diffuse end exp wheeze heard - faint Abd soft I/P 1. Resp failure 2. COPD Further diagnoses and plan as above.
[2017-10-03] MEDS: Budesonide/Formoterol 160/4.5 MDI IH SCH ×2 (11:18→19:51)
--- NOTE | 2017-10-03 12:49 | Gastroenterology Consult Note ---
<Natalia Meza M - Last Filed: 10/03/17 13:15> Date of Encounter: 10/03/17 Time of Encounter: 09:30 - Assessment and plan (1) Anemia Status: Acute Assessment and plan: 57 year old male with history of PE who has been on xarelto. He has decreasing Hgb, denies any bloody or tarry stools. Will proceed with EGD today, he will also need colonoscopy as he has never had one. Will also check iron panel. Qualifiers: Anemia type: other cause Other causes of anemia: other cause, not classified Qualified Code(s): D64.89 - Other specified anemias - Time Spent With Patient Total time spent is greater than 50% in coordination of care (as documented) at patient's floor/unit and/or counseling patient: GI History of Present Illness - Data of Consult Patient: new to practice Consult date: 10/03/17 Requesting Physician: Kyle Osborne DO - Consult Narrative Reason for consult: anemia History of present illness: Mr. Blanchard is a 57 year old male presented to ER for shortness of breath. Past medical history is significant for COPD on home oxygen, history of PE on xarelto. He originally presented with shortness of breath. He was admitted and has been treated for LLL pneumonia and COPD exac. Pt was started on xarelto approximately one month ago for PE and developed GI bleed therefore GI was consulted. Hgb dropped from 12.0 to 8.8 in 2 days. He denies abdominal pain, nausea or vomiting, diarrhea. He reports no BM for the past 3-4 days. He denies bloody or tarry stools. He denies GERD. procedures: denies previous EGD or colonoscopy xarelto last dose 10/01 0911 Past Med Surg Social Fam HX - Past Medical History Medical history: COPD Psychiatric history: no psych history - Social History Smoking Status: Former smoker Smokeless Tobacco Status: No Alcohol use: none Drug use: marijuana - Family History Father Living Status: Hx Family Cancer: Yes (colon) Review of Systems: GI: as per BL[facility] GENERAL: denies fever, has some chills EYES: denies yellow discoloration ENT: denies pain with swallowing or difficulty swallowing CARDIO: denies chest pain, palpitations RESP: Shortness of breath with exertion : denies change in color of urine NEURO: denies any weakness HEME: Denies any bruising MS: denies joint pain, joint swelling or back pain. DERM: denies rash or itching PSYCH: history of anxiety or depression - Constitutional Vitals: Temp Pulse Resp BP Pulse Ox 97.6 F 49 16 142/87 95 10/03/17 07:16 10/03/17 07:16 10/03/17 11:21 10/03/17 07:16 10/03/17 11:21 Exam: CONSTITUTIONAL:~alert, no acute distress.~HEAD:~normocephalic.~EYES:~no jaundice.~NECK:~no obvious swelling.~HEART:~regular rate and rhythm, no murmurs. ~LUNGS:~scattered rhonchi, clears with coughing.~ABDOMEN:~non distended, soft, non tender, no masses pulpable, no organomegaly.~RECTAL EXAM:~Deferred.~ EXTREMITIES:~no clubbing, cyanosis or edema.~SKIN:~no stigmata of chronic liver disease.~NEUROLOGIC:~no obvious focal defect.~~~~ Results - Labs CBC & Chem 7: 10/03/17 04:33 10/02/17 03:20 Labs: Last Result Calcium 8.4 mg/dL (8.6-10.3) L 10/02/17 03:20 Troponin I 0.03 ng/mL (< 0.04) 09/30/17 11:14 Entire Visit Hgb 9.4 g/dL (12.9-16.9) L 10/03/17 04:33 Hct 27.9 % (37.5-50.1) L 10/03/17 04:33 Consult Discharge Plan - Plan Instructions: Prednisone (By mouth), Azithromycin (By mouth), Cefdinir (By mouth), Pulmonary Embolism (DC), Chronic Obstructive Pulmonary Disease (DC) Additional Instructions: Please return to pursue room if worsening shortness of breath, development chest pain, development of fever/chills, or red/black in stool. Take all medications as prescribed: Continue Xarelto Omnicef 300 mg twice a day for 6 days Azithromycin 500 mg tomorrow followed by 250 mg daily for 4 days Take prednisone as prescribed: 40 mg once daily for 3 days 30 mg once daily for 3 days 20 mg once daily for 3 days 10 mg once daily for 3 days Please follow-up with your PCP and retail pricing coordinator in 1-2 weeks for reassessment of respiratory status Please follow-up with GI for outpatient colonoscopy Referrals: Cyndi Singh MD [Partnered Physician] - 10/19/17 7:45 am () Marilyn Rojas CNP [Primary Care Provider] - 10/11/17 10:45 am Ayala Cheung MD [Partnered Physician] - (Web request made. They will call you with appt date & time.) Prescriptions: Azithromycin [Azithromycin 6-Tab Pack] 250 mg PO PER PKG DI #6 tab Cefdinir [Omnicef] 300 mg PO BID #12 capsule predniSONE [PredniSONE] See Taper PO DAILY #30 tablet <Man Bach - Last Filed: 10/10/17 18:55> Date of Encounter: 10/03/17 - Time Spent With Patient Total time spent is greater than 50% in coordination of care (as documented) at patient's floor/unit and/or counseling patient: GI History of Present Illness - Data of Consult Requesting Physician: Kyle Osborne DO - Consult Narrative History of present illness: Mr. Blanchard is a 57 year old male - Constitutional Vitals: Temp Pulse Resp BP Pulse Ox 97.6 F 88 16 119/79 94 10/04/17 11:32 10/04/17 11:32 10/04/17 11:32 10/04/17 11:32 10/04/17 11:32 Results - Labs CBC & Chem 7: 10/04/17 04:12 10/02/17 03:20 Labs: Last Result Calcium 8.4 mg/dL (8.6-10.3) L 10/02/17 03:20 Iron 102 mcg/dL (65-175) 10/03/17 13:17 % Saturation 37 % (20-55) 10/03/17 13:17 Transferrin 196 mg/dL (203-362) L 10/03/17 13:17 Ferritin 435 ng/ml (20-250) H 10/03/17 13:17 Troponin I 0.03 ng/mL (< 0.04) 09/30/17 11:14 Stool Occult Blood Negative (Negative) 10/03/17 23:00 Entire Visit Hgb 9.9 g/dL (12.9-16.9) L 10/04/17 04:12 Hct 29.6 % (37.5-50.1) L 10/04/17 04:12 Ferritin 435 ng/ml (20-250) H 10/03/17 13:17 - Attending Attestation 57-year-old man with a 4 g drop in hemoglobin since admission. Patient has not seen or any black stools or any evidence of bleeding per rectum. We will plan EGD today and a colonoscopy tomorrow he has been on anticoagulation with xarelto I have personally performed a face to face evaluation on this patient. I have reviewed and agree with the care plan. History and Exam by me shows:
[2017-10-03] MEDS ORDERED: Lidocaine -MPF 2% 2 ML VIAL ONE (13:40)
[2017-10-03] MEDS ORDERED: *HR* Propofol 200 MG/20 ML VIAL IVP ONE (13:40)
[2017-10-03] MEDS ORDERED: Azithromycin 500 MG in D5% in Water 250 ML IVPB SCH (14:00)
[2017-10-03] MEDS ORDERED: cefTRIAXone 1,000 MG in Water for inj. (sterile) 20 ML 10 ML IVP SCH (14:00)
[2017-10-03 14:10] LABS: % Iron Saturation 37 % (20-55); Ferritin 435 ng/ml (20-250); Iron 102 mcg/dL (65-175); Transferrin 196 mg/dL (203-362)
--- NOTE | 2017-10-03 14:37 | Anesthesia Evaluation Post Op ---
Date of Encounter: 10/03/17 Time of Encounter: 14:36 - Vital Signs Vital Signs: 114/70, HR 81, SpO2 99%, RR 22 - Lungs Lungs: Rales - Airway Airway: Non-obstructed - Cardiovascular Regular Rate - Mental Status Mental Status: Alert & Oriented, Answers Appropriately - Pain Pain Scale: 0 Pain Scale used: Numeric (1 - 10) - Nausea Vomiting Nausea Vomiting: Not Present - Hydration Hydration: NPO, Has not voided - Discharge PostOp Status: Transfer Patient to floor
[2017-10-03] MEDS: Furosemide 20 MG TABLET PO SCH ×3 (16:08→21:19)
[2017-10-03] MEDS: Sennosides/Docusate Sodium TABLET PO PRN (16:09)
[2017-10-03] MEDS ORDERED: SODIUM CHLORIDE/NAHCO3/KCL/PEG 4,000 ML SOLN.RECON PO ONE (17:00)
[2017-10-03] MEDS ORDERED: Polyethylene Glycol 3350 255 GM POWDER PO ONE (22:18)
[2017-10-04] MEDS: Ipratropium/Albuterol Neb 3 ML IH SCH ×3 (03:47→11:04)
[2017-10-04 05:09] LABS: Hematocrit 29.6 % (37.5-50.1); Hemoglobin 9.9 g/dL (12.9-16.9); Mean Corpuscular HGB Conc 33.4 g/dL (31.6-35.5); Mean Corpuscular Hemoglobin 30.1 pg (28.0-33.3); Mean Platelet Volume 9.7 fL (9.4-12.4); Platelet Count 291 K/mcL (140-400); Red Blood Count 3.29 M/mcL (4.19-5.50); Red Cell Distribution Width 15.2 % (11.5-14.5)
--- NOTE | 2017-10-04 10:46 | Physician Discharge Referral ---
Home Health/Hosp Referral Info Transfer to: Home Health Provider in Charge Post Discharge: PCP - Diagnosis (1) Acute and chronic respiratory failure Priority: Primary Status: Resolved (2) Pneumonia Priority: Primary Status: Suspected (3) Essential hypertension Priority: Primary Status: Chronic (4) COPD exacerbation Priority: Primary Status: Resolved (5) History of pulmonary embolism Priority: Primary Status: Acute (6) Anemia Priority: Primary Status: Suspected (7) DVT prophylaxis Priority: Secondary Status: Resolved - Respiratory Orders Oxygen / L per min (Home dose) Smoking Cessation: Smoking cessation has been advised. For more information, call the [place] Tobacco Quit Line at 0-507-HVDN-NOW. - Diet/Nutrition Diet/Nutrition Orders: Cardiac - Activity Activity Orders: Up ad harish, Ambulate - Services Needed Following services are medically necessary services: Nursing, Home Health Aide, Physical Therapy, Occupational Therapy, Med Social Work - Transfer Medications Prescriptions: Azithromycin [Azithromycin 6-Tab Pack] 250 mg PO PER PKG DI #6 tab Cefdinir [Omnicef] 300 mg PO BID #12 capsule predniSONE [PredniSONE] See Taper PO DAILY #30 tablet Home Medications: Docusate [Colace] 100 mg PO BID 07/25/17 [History] Ipratropium/Albuterol Neb [Duoneb] 3 ml IH Q4H PRN 07/25/17 [History] Oxygen 4 l NS AD 07/25/17 [History] Polyethylene Glycol 3350 17 gm PO DAILY PRN 07/25/17 [History] Roflumilast [Daliresp] 500 mcg PO DAILY 07/25/17 [History] GuaiFENesin ER [Mucinex] 600 mg PO BID tbbp.12hr 07/28/17 [Rx] Metoprolol [Lopressor] 25 mg PO BID 09/10/17 [History] Acetaminophen [Tylenol] 650 mg PO Q6HR PRN tablet 09/20/17 [Rx] Albuterol Sulfate [Albuterol Inhaler] 2 puff IH Q4H PRN #1 inhaler 09/20/17 [Rx] Budesonide Neb [Pulmicort Neb] 0.5 mg IH BID #1 inhsol 09/20/17 [Rx] Furosemide [Lasix] 40 mg PO TID #90 tab 09/20/17 [Rx] Mometasone/Formoterol [Dulera 200 Mcg/5 Mcg Inhaler] 2 puff IH BID #1 hfa.aer.ad 09/20/17 [Rx] Rivaroxaban [Xarelto] 20 mg PO DAILY #60 tablet 09/20/17 [Rx] Tiotropium [place] [Spiriva Respimat] 2 puff IH DAILY #1 mist.inhal 09/20/17 [Rx ] Umeclidinium [place] [Incruse Ellipta] 62.5 mcg IH DAILY #1 blst.w.dev 09/20/17 [Rx] Omeprazole [PriLOSEC] 20 mg PO 0730 09/30/17 [History] Azithromycin [Azithromycin 6-Tab Pack] 250 mg PO PER PKG DI #6 tab 10/04/17 [Rx] Cefdinir [Omnicef] 300 mg PO BID #12 capsule 10/04/17 [Rx] predniSONE [PredniSONE] See Taper PO DAILY #30 tablet 10/04/17 [Rx] Allergies/Adverse Reactions: 3 Allergy/AdvReac Type Severity Reaction Status Date / Time levofloxacin AdvReac Blurry Verified 10/03/17 08:33 Vision Certification: Further, I certify that my clinical findings support that this patient is homebound (i.e. absences from home require considerable and taxing effort and are for medical reasons or voodoo services or infrequently or short duration when for other reasons) because: Homebound Reason: Severity of cardiac or pulmonary status limits activity tolerance Attestation: My signature below is to certify that this patient is under my care and that I, or nurse practitioner, or a physician's assistant spa manager working with me, has a face-to -face encounter with this patient.
--- NOTE | 2017-10-04 10:46 | Discharge Summary ---
<Jacques Connolly - Last Filed: 10/04/17 13:09> - NOTES TO OUTPATIENT PROVIDER Notes to Outpatient Provider: He presented to [facility] on with increasing dyspnea. He has a medical history significant for severe COPD and recent diagnosis of pulmonary embolism on Xarelto. He had recently been in the hospital for COPD exacerbation and pneumonia And discharged with Levaquin, prednisone, and Xarelto. For several days prior to admission he reported increasing shortness of breath with yellow sputum production. He admitted that he had not been taking his prednisone as prescribed for several days prior to this occurring.. A chest CTA did not redemonstrate his PE, but did show worsening pneumonia. During the course of his stay he was put back on steroids, received antibiotics, and received breathing treatments. His breathing status quickly improved with re-addition of steroids to his regimen. Unfortunately, his hemoglobin seemed to fall precipitously from 12.0 -> 8.8. His relative was stopped and he was assessed for possible GI bleed. During this time he had been on IV fluids as well. Hemoccult was obtained and EGD was performed. The EGD showed gastritis and small hiatal hernia. He declined having a colonoscopy performed, but his hemoglobin slowly trended up after stopping his IVF. He is safe/stable for discharge with follow-up with his PCP, his cma, and GI. He will need to continue Levaquin and prednisone upon discharge. Date of Encounter: 10/04/17 Time of Encounter: 08:25 - Discharge Diagnosis (1) Acute and chronic respiratory failure Priority: Primary Status: Resolved Qualifiers: Respiratory failure complication: hypoxia Qualified Code(s): J96.21 - Acute and chronic respiratory failure with hypoxia (2) Pneumonia Priority: Primary Status: Suspected Qualifiers: Pneumonia type: due to Pneumococcus Laterality: left Lung location: lower lobe of lung Qualified Code(s): J13 - Pneumonia due to Streptococcus pneumoniae (3) Essential hypertension Priority: Primary Status: Chronic (4) COPD exacerbation Priority: Primary Status: Acute (5) History of pulmonary embolism Priority: Primary Status: Acute (6) DVT prophylaxis Priority: Secondary Status: Resolved (7) Anemia Priority: Primary Status: Suspected Qualifiers: Anemia type: other cause Other causes of anemia: chronic disease, other Qualified Code(s): D63.8 - Anemia in other chronic diseases classified elsewhere Hospital course: Mr. Blanchard is a 57 year old male with past medical history of pulmonary embolism and COPD. He presented to [facility] on 09/30/16 with increasing dyspnea. He has a medical history significant for severe COPD and recent diagnosis of pulmonary embolism on Xarelto. He had recently been in the hospital for COPD exacerbation and pneumonia And discharged with Levaquin, prednisone, and Xarelto. For several days prior to admission he reported increasing shortness of breath with yellow sputum production. He admitted that he had not been taking his prednisone as prescribed for several days prior to this occurring.. A chest CTA did not redemonstrate his PE, but did show worsening pneumonia. During the course of his stay he was put back on steroids, received antibiotics , and received breathing treatments. His breathing status quickly improved with re-addition of steroids to his regimen. Unfortunately, his hemoglobin seemed to fall precipitously from 12.0 -> 8.8. His relative was stopped and he was assessed for possible GI bleed. During this time he had been on IV fluids as well. Hemoccult was obtained and EGD was performed. The EGD showed gastritis and small hiatal hernia. He declined having a colonoscopy performed, but his hemoglobin slowly trended up after stopping his IVF. He is safe/stable for discharge with follow-up with his PCP, his cma, and GI. He will need to continue Levaquin and prednisone upon discharge. Discharge discussed with: patient, nurse, social work - Time Spent with Patient Total time spent providing and/or coordinating discharge services: - Discharge Medications Prescriptions: Azithromycin [Azithromycin 6-Tab Pack] 250 mg PO PER PKG DI #6 tab Cefdinir [Omnicef] 300 mg PO BID #12 capsule predniSONE [PredniSONE] See Taper PO DAILY #30 tablet Home Medications: Docusate [Colace] 100 mg PO BID 07/25/17 [History] Ipratropium/Albuterol Neb [Duoneb] 3 ml IH Q4H PRN 07/25/17 [History] Oxygen 4 l NS AD 07/25/17 [History] Polyethylene Glycol 3350 17 gm PO DAILY PRN 07/25/17 [History] Roflumilast [Daliresp] 500 mcg PO DAILY 07/25/17 [History] GuaiFENesin ER [Mucinex] 600 mg PO BID tbbp.12hr 07/28/17 [Rx] Metoprolol [Lopressor] 25 mg PO BID 09/10/17 [History] Acetaminophen [Tylenol] 650 mg PO Q6HR PRN tablet 09/20/17 [Rx] Albuterol Sulfate [Albuterol Inhaler] 2 puff IH Q4H PRN #1 inhaler 09/20/17 [Rx] Budesonide Neb [Pulmicort Neb] 0.5 mg IH BID #1 inhsol 09/20/17 [Rx] Furosemide [Lasix] 40 mg PO TID #90 tab 09/20/17 [Rx] Mometasone/Formoterol [Dulera 200 Mcg/5 Mcg Inhaler] 2 puff IH BID #1 hfa.aer.ad 09/20/17 [Rx] Rivaroxaban [Xarelto] 20 mg PO DAILY #60 tablet 09/20/17 [Rx] Tiotropium [place] [Spiriva Respimat] 2 puff IH DAILY #1 mist.inhal 09/20/17 [Rx ] Umeclidinium [place] [Incruse Ellipta] 62.5 mcg IH DAILY #1 blst.w.dev 09/20/17 [Rx] Omeprazole [PriLOSEC] 20 mg PO 0730 09/30/17 [History] Azithromycin [Azithromycin 6-Tab Pack] 250 mg PO PER PKG DI #6 tab 10/04/17 [Rx] Cefdinir [Omnicef] 300 mg PO BID #12 capsule 10/04/17 [Rx] predniSONE [PredniSONE] See Taper PO DAILY #30 tablet 10/04/17 [Rx] Allergies/Adverse Reactions: 3 Allergy/AdvReac Type Severity Reaction Status Date / Time levofloxacin AdvReac Blurry Verified 10/03/17 08:33 Vision Date of admission: 09/30/17 20:17 Primary care physician: Marilyn Rojas CNP Consults: 10/01/17 13:27 Consult to Pulmonology [CONS] Routine Consulting Provider: [facility] Reason for Consult: Recurrent PNA Call Completed: No 10/02/17 11:34 Consult to Gastroenterology [CONS] Routine Consulting Provider: Gastroenterology Jeaneth Reason for Consult: Concern for the development of GI bleed with recent addition of Xarelto. Call Completed: No Discharging clinician: Jacques Connolly Anticipated date of discharge: 10/04/17 - Constitutional Vitals: Temp Pulse Resp BP Pulse Ox 97 F L 87 16 111/68 96 10/04/17 07:52 10/04/17 07:52 10/04/17 07:52 10/04/17 07:52 10/04/17 07:52 General appearance: Present: A&O X 3, no acute distress, answers questions appropriately Exam: General: Cooperative, pleasant, no acute distress, alert and oriented 3, answers questions appropriately HEENT: Normocephalic, atraumatic, neck supple, trachea midline, Conjunctiva pink , sclera anicteric, oral mucosa moist Respiratory: No accessory muscle usage, CTA b/l Cardiovascular: Regular rate and rhythm, S1 and S2 present, no murmurs/rubs/ gallops/clicks appreciated GI/abdominal: Nondistended, nontender, soft, normal bowel sounds, no peritoneal signs Extremities: No calf tenderness, noncyanotic, no pedal edema appreciated, warm, lower extremity pulses palpable and symmetrical Neurological: Alert and oriented 3, no facial droop, no focal deficits Skin: Dry, intact, normal color - Patient Status Disposition: Home Health Service Condition: Fair Functional capacity at discharge: independent ambulation Overall status at discharge: patient is progressing back to baseline - Discharge Instructions Follow Up With: Marilyn Rojas CNP [Primary Care Provider] - Additional Instructions: Please return to pursue room if worsening shortness of breath, development chest pain, development of fever/chills, or red/black in stool. Take all medications as prescribed: Continue Xarelto Omnicef 300 mg twice a day for 6 days Azithromycin 500 mg tomorrow followed by 250 mg daily for 4 days Take prednisone as prescribed: 40 mg once daily for 3 days 30 mg once daily for 3 days 20 mg once daily for 3 days 10 mg once daily for 3 days Please follow-up with your PCP and cma in 1-2 weeks for reassessment of respiratory status Please follow-up with GI for outpatient colonoscopy - Diet and Activity Activity: increase activity as tolerated, wear oxygen at all times Diet: advance to your usual diet <Kyle Osborne - Last Filed: 10/04/17 14:39> Date of Encounter: 10/04/17 - Discharge Diagnosis (1) Acute and chronic respiratory failure Priority: Primary Status: Resolved Qualifiers: Respiratory failure complication: hypoxia Qualified Code(s): J96.21 - Acute and chronic respiratory failure with hypoxia (2) Pneumonia Priority: Primary Status: Suspected Qualifiers: Pneumonia type: due to Pneumococcus Laterality: left Lung location: lower lobe of lung Qualified Code(s): J13 - Pneumonia due to Streptococcus pneumoniae (3) COPD exacerbation Priority: Secondary Status: Resolved (4) Essential hypertension Priority: Secondary Status: Chronic (5) History of pulmonary embolism Priority: Secondary Status: Chronic (6) Anemia Priority: Secondary Status: Suspected Qualifiers: Anemia type: other cause Other causes of anemia: chronic disease, other Qualified Code(s): D63.8 - Anemia in other chronic diseases classified elsewhere Hospital course: Mr. Blanchard is a 57 year old male - Time Spent with Patient Total time spent providing and/or coordinating discharge services: 38min Date of admission: 09/30/17 20:17 Primary care physician: Marilyn Rojas CNP Consults: 10/01/17 13:27 Consult to Pulmonology [CONS] Routine Consulting Provider: [facility] Reason for Consult: Recurrent PNA Call Completed: No 10/02/17 11:34 Consult to Gastroenterology [CONS] Routine Consulting Provider: [facility] [place] Reason for Consult: Concern for the development of GI bleed with recent addition of Xarelto. Call Completed: No - Constitutional Vitals: Temp Pulse Resp BP Pulse Ox 97.6 F 88 16 119/79 94 10/04/17 11:32 10/04/17 11:32 10/04/17 11:32 10/04/17 11:32 10/04/17 11:32 - Attending Attestation I examined this patient and my medical decision-making was reviewed with the Resident Physician on 10/04/17. I agree with the documented findings, disposition and treatment plan as described except to the extent set forth below. Mr Blanchard has been admitted for acute exac COPD. He was anemic and had EGD but refused colonoscopy. Currently he is afebrile. His breathing has improved and he feels ready for discharge home. Exam alert Comfortable Mucus membranes dry Heart distant Lungs clear Abd soft Plan D/C home today Restart Xarelto - monitor H/H as outpatient Follow up with PCP.
[2017-10-04] MEDS: Budesonide/Formoterol 160/4.5 MDI IH SCH (11:05)
[2017-10-04 11:34] VITALS: BP 119/79
[2017-10-04] MEDS: MethylPREDNISolone 40 MG/ML VIAL IVP SCH (11:35)
[2017-10-04] MEDS: Furosemide 20 MG TABLET PO SCH (11:37)
== END 2017-10-04 16:22 | disposition home health service (06) | DRG 139 ==
LOC: EMEROO 11:07 → 2NENU 11:07 → SUATTDRO 20:17
PROVIDERS: ADMIT Nurse Practitioner Family; ATTEND Internal Medicine

== ENCOUNTER 2017-10-26 18:03 | Observation (INO) ==
[2017-10-26] MEDS ORDERED: Aspirin 81 MG TAB.CHEW PO ONE (19:21)
[2017-10-26] MEDS ORDERED: Isovue-370 500 ML INFUS..BTL IV ONE ×2 (19:28→21:36)
--- NOTE | 2017-10-26 19:29 | Emergency Department Note ---
Disposition Clinical Impression: COPD exacerbation, Respiratory distress, Sinus tachycardia Disposition: Admitted As Inpatient Condition: Fair Referrals: Marilyn Rojas CNP [Primary Care Provider] - Forms: ED Satisfaction Letter General Adult HPI - General Chief complaint: ED Shortness of Breath/Dyspnea Stated complaint: PHYLLIS Time Seen by Provider: 10/26/17 19:20 Source: patient Limitations: no limitations Nursing Notes Reviewed: Yes Vital Signs Reviewed: Yes - History of Present Illness HPI Narrative: 49-year-old male presents emergency Department with shortness of breath and left -sided chest tightness. Patient states that around this chest tightness before. Patient has a history of COPD and pulmonary embolism. Patient has never had a heart attack. Patient was sent here because his nurse said that he was not moving a lot of air in his lungs. Pain Scale: 0 - Related Data Home Medications Medication Instructions Recorded Confirmed Docusate [Colace] 100 mg PO BID 07/25/17 10/26/17 Ipratropium/Albuterol Neb [Duoneb] 3 ml IH Q4H PRN 07/25/17 10/26/17 Oxygen 4 l NS AD 07/25/17 10/26/17 Roflumilast [Daliresp] 500 mcg PO DAILY 07/25/17 10/26/17 Metoprolol [Lopressor] 25 mg PO BID 09/10/17 10/26/17 Omeprazole [PriLOSEC] 20 mg PO 0730 09/30/17 10/26/17 Previous Rx's Medication Instructions Recorded Acetaminophen [Tylenol] 650 mg PO Q6HR PRN tablet 09/20/17 Albuterol Sulfate [Albuterol 2 puff IH Q4H PRN #1 inhaler 09/20/17 Inhaler] Budesonide Neb [Pulmicort Neb] 0.5 mg IH BID #1 inhsol 09/20/17 Furosemide [Lasix] 40 mg PO TID #90 tab 09/20/17 Mometasone/Formoterol [Dulera 200 2 puff IH BID #1 hfa.aer.ad 09/20/17 Mcg/5 Mcg Inhaler] Rivaroxaban [Xarelto] 20 mg PO DAILY #60 tablet 09/20/17 Tiotropium Pep [Spiriva 2 puff IH DAILY #1 mist.inhal 09/20/17 Respimat] Umeclidinium Pep [Incruse 62.5 mcg IH DAILY #1 blst.w.dev 09/20/17 Ellipta] Allergies Allergy/AdvReac Type Severity Reaction Status Date / Time levofloxacin AdvReac Blurry Verified 10/26/17 22:20 [facility] All systems ED: reviewed and negative except as stated. Review of Systems: As Per HPI Constitutional: Reports: fever Cardiovascular: Reports: chest pain Respiratory: Reports: cough, dyspnea. Denies: hemoptysis, sputum production Gastrointestinal: Denies: abdominal pain, nausea, vomiting Genitourinary: Denies: urgency, dysuria, frequency Musculoskeletal: Denies: back pain, neck pain Neurological: Reports: weakness Endocrine: Reports: fatigue Past Medical History - Past Medical History Medical history: Reports: COPD Psychiatric history: Reports: no psych history - Social History Smoking Status: Former smoker Smokeless Tobacco Status: No Alcohol use: Reports: none Drug use: Reports: marijuana Physical Exam - General Limitations: other (Patient appears to be in respiratory distress. Breathing through pursed lips) - Head Head exam: atraumatic, normocephalic - Eye Eye exam: Present: EOMI. Absent: scleral icterus, conjunctival injection - ENT ENT exam: normal oropharynx - Neck Neck exam: Present: trachea midline. Absent: tenderness, meningismus - Chest Chest inspection: Present: normal inspection, symmetric chest wall rise - Respiratory Respiratory exam: Present: respiratory distress, prolonged expiratory phase, other (Decreased lung sounds throughout) - Cardiovascular Cardiovascular exam: Present: normal rhythm, tachycardia - Abdominal Exam Abdominal exam: Present: soft, Non-Tender. Absent: distention, guarding, rebound - Extremities Exam Extremities exam: Present: normal capillary refill. Absent: tenderness, calf tenderness - Back Exam Back exam: Present: full ROM. Absent: CVA tenderness (R), CVA tenderness (L) - Neurological Exam Neurological exam: Present: alert, oriented X3 - Psychiatric Psychiatric exam: Present: anxious - Skin Skin exam: Present: warm, dry, intact, normal color Course Vital Signs Temperature 98.0 F 10/26/17 18:07 Pulse Rate 122 10/26/17 18:07 Respiratory Rate 22 10/26/17 18:07 Blood Pressure 121/75 10/26/17 18:07 O2 Sat by Pulse Oximetry 97 10/26/17 18:07 Temperature 98.0 F 10/26/17 19:42 Pulse Rate 125 10/26/17 20:41 Respiratory Rate 24 10/26/17 22:52 Blood Pressure 137/90 10/26/17 20:41 O2 Sat by Pulse Oximetry 96 10/26/17 22:52 Oxygen Delivery Oxygen Delivery Bipap Medical Decision Making - MDM Narrative Medical decision making narrative: 57-year-old male presents emergency department with concern for dyspnea. Patient has history of COPD. Patient was tachycardic and hypoxic and looked to be in respiratory distress. Patient was placed on his normal oxygen via nasal cannula and he still appear to struggle to breathe. We immediately placed BiPAP on patient. This helped out with his symptoms. Patient was reporting some chest tightness, but most of it went away through the menstruation BiPAP. CTA was obtained as patient has history of pulmonary embolus and was tachycardic and hypoxic. This did not reveal any evidence of pneumonia or pulmonary embolus. Chest x-ray actually revealed improvement in previously noted airspace disease in the left lower lobe. EKG did not reveal any evidence of any ischemic ST changes. Patient was given Xopenex and ipratropium. Patient started aerating a lot better afterwards. Patient was given 125 mg Solu -Medrol IV. Patient was still tachycardic with a heart rate at 109. We administered a liter of normal saline. Patient appeared stable on BiPAP. Decision was made to admit patient to the hospital. Patient given azithromycin. Troponin was negative. BNP was not elevated. Creatinine was within normal limits. Patient admitted to hospitalist. Patient agree with plan. Chest X-Ray 10/26/17 18:59 IMPRESSION: 1. Improvement in previously noted airspace disease in the left lower lobe with some residual scattered coarse nodular opacities. 2. No new focal lung opacity or consolidation. 3. Emphysema. D/ / 10/26/2017 19:20:09 Francis Marcos MD / aiyana Interpreting Provider: Francis Marcos MD Chest CTA 10/26/17 19:28 IMPRESSION: No evidence of pulmonary embolism or acute pulmonary abnormality. Mild emphysema. D/ / 10/26/2017 21:47:08 Chidi Garcia MD / aiyana Interpreting Provider: Chidi Garcia MD Vital Signs Temperature 98.0 F 10/26/17 18:07 Pulse Rate 122 10/26/17 18:07 Respiratory Rate 22 10/26/17 18:07 Blood Pressure 121/75 10/26/17 18:07 O2 Sat by Pulse Oximetry 97 10/26/17 18:07 Temperature 98.0 F 10/26/17 19:42 Pulse Rate 125 10/26/17 20:41 Respiratory Rate 18 10/26/17 20:41 Blood Pressure 137/90 10/26/17 20:41 O2 Sat by Pulse Oximetry 96 10/26/17 20:41 Oxygen Delivery Oxygen Delivery Bipap - Medical Records Medical records reviewed: Yes I reviewed the patient's medical records. - Lab Data Lab results reviewed: Yes I reviewed the patient's lab results. Result diagrams: 10/26/17 19:48 10/26/17 19:48 Lab Results 10/26/17 10/26/17 10/26/17 Range/Units 19:48 19:48 19:48 WBC (4.3-11.1) K/mcL RBC (4.19-5.50) M/mcL Hgb (12.9-16.9) g/dL Hct (37.5-50.1) % MCV (83.0-100.0) fL MCH (28.0-33.3) pg MCHC (31.6-35.5) g/dL RDW (11.5-14.5) % Plt Count (140-400) K/mcL MPV (9.4-12.4) fL Immature Gran % (0-4) % Seg Neutrophils % % Lymphocytes % % Monocytes % % Eosinophils % % Basophils % % Neutrophils # (1.6-8.9) K/mcL Lymphocytes # (0.6-4.6) K/mcL Monocytes # (0.0-1.3) K/mcL Eosinophils # (0.0-0.6) K/mcL Basophils # (0.0-0.2) K/mcL PT 15.9 H (9.4-12.1) Seconds INR 1.5 APTT 35.2 (26.0-36.0) Seconds Sodium 141 (136-145) mEq/L Potassium 3.9 (3.5-5.1) mEq/L Chloride 102 (98-107) mEq/L Carbon Dioxide 30 H (23-29) mEq/L BUN 13 (6-20) mg/dL Creatinine 0.62 L (0.70-1.30) mg/dL Est GFR ( Amer) > 60 (> 60) Est GFR (Non-Af Amer) > 60 (> 60) BUN/Creatinine Ratio 21 (6-26) Glucose 149 H (70-105) mg/dL Calculated Osmolality 295 (280-300) Lactic Acid 2.3 H (0.5-2.2) mmol/L Calcium 9.9 (8.6-10.3) mg/dL Troponin I < 0.03 (< 0.04) ng/mL B-Natriuretic Peptide (Less than 100) pg/mL 10/26/17 10/26/17 Range/Units 19:48 19:48 WBC 6.1 (4.3-11.1) K/mcL RBC 3.79 L (4.19-5.50) M/mcL Hgb 10.9 L (12.9-16.9) g/dL Hct 34.5 L (37.5-50.1) % MCV 91.0 (83.0-100.0) fL MCH 28.8 (28.0-33.3) pg MCHC 31.6 (31.6-35.5) g/dL RDW 15.1 H (11.5-14.5) % Plt Count 309 (140-400) K/mcL MPV 10.3 (9.4-12.4) fL Immature Gran % 0.7 (0-4) % Seg Neutrophils % 78.7 % Lymphocytes % 16.0 % Monocytes % 4.2 % Eosinophils % 0.2 % Basophils % 0.2 % Neutrophils # 4.8 (1.6-8.9) K/mcL Lymphocytes # 1.0 (0.6-4.6) K/mcL Monocytes # 0.3 (0.0-1.3) K/mcL Eosinophils # 0.0 (0.0-0.6) K/mcL Basophils # 0.0 (0.0-0.2) K/mcL PT (9.4-12.1) Seconds INR APTT (26.0-36.0) Seconds Sodium (136-145) mEq/L Potassium (3.5-5.1) mEq/L Chloride (98-107) mEq/L Carbon Dioxide (23-29) mEq/L BUN (6-20) mg/dL Creatinine (0.70-1.30) mg/dL Est GFR ( Amer) (> 60) Est GFR (Non-Af Amer) (> 60) BUN/Creatinine Ratio (6-26) Glucose (70-105) mg/dL Calculated Osmolality (280-300) Lactic Acid (0.5-2.2) mmol/L Calcium (8.6-10.3) mg/dL Troponin I (< 0.04) ng/mL B-Natriuretic Peptide 32 (Less than 100) pg/mL - Radiology Data Radiology results reviewed: Yes I reviewed the patient's radiology results. Chest X-Ray 10/26/17 18:59 IMPRESSION: 1. Improvement in previously noted airspace disease in the left lower lobe with some residual scattered coarse nodular opacities. 2. No new focal lung opacity or consolidation. 3. Emphysema. D/ / 10/26/2017 19:20:09 Francis Marcos MD / aiyana Interpreting Provider: Francis Marcos MD Chest CTA 10/26/17 19:28 IMPRESSION: No evidence of pulmonary embolism or acute pulmonary abnormality. Mild emphysema. D/ / 10/26/2017 21:47:08 Chidi Garcia MD / aiyana Interpreting Provider: Chidi Garcia MD - EKG Data EKG #1 EKG attestation: Yes I reviewed and interpreted this EKG. EKG results narrative: 19:33 Ventricular rate 117 bpm, CA interval 162 ms, QRS duration 98 ms, QT 305 ms, QTC 374 ms, normal axis. Sinus tachycardia with a ventricular rate of 170 bpm. There is no evidence of any ischemic ST changes on this electrocardiogram. Critical Care Time Critical Care Time: Yes Total Critical Care Time: 35 Attestation: The high probability of a clinically significant, sudden or life threatening deterioration of the [resp] system(s) required my full and direct attention, intervention and personal management. The aggregate critical care time was [35] minutes. This time is in addition to time spent performing reported procedures but includes the following: [x] Data Review and interpretation [x] Patient assessment and monitoring of vital signs [x] Documentation [x] Medication orders and management
[2017-10-26] MEDS ORDERED: Ipratropium Neb 0.5 MG NEBULIZER IH ONE (19:38)
[2017-10-26] MEDS ORDERED: Levalbuterol Neb 1.25 MG/3 ML IH STA (19:38)
[2017-10-26] MEDS ORDERED: methylPREDNISolone 125 MG/2 ML VIAL IVP ONE (19:39)
[2017-10-26] MEDS ORDERED: Nitroglycerin 0.4 MG TAB.SUBL SL PRN (19:43)
[2017-10-26 20:03] LABS: Basophils % 0.2 %; Eosinophils % 0.2 %; Hematocrit 34.5 % (37.5-50.1); Hemoglobin 10.9 g/dL (12.9-16.9); Immature Granulocytes % 0.7 % (0-4); Mean Corpuscular HGB Conc 31.6 g/dL (31.6-35.5); Mean Corpuscular Hemoglobin 28.8 pg (28.0-33.3); Mean Platelet Volume 10.3 fL (9.4-12.4); Monocytes # 0.3 K/mcL (0.0-1.3); Monocytes % 4.2 %; Neutrophils # 4.8 K/mcL (1.6-8.9); Platelet Count 309 K/mcL (140-400); Red Blood Count 3.79 M/mcL (4.19-5.50); Red Cell Distribution Width 15.1 % (11.5-14.5); Segmented Neutrophils % 78.7 %
[2017-10-26 20:11] LABS: INR 1.5; Prothrombin Time 15.9 Seconds (9.4-12.1)
[2017-10-26 20:14] LABS: Activated Partial Thrombo Time 35.2 Seconds (26.0-36.0)
[2017-10-26] MEDS ORDERED: Nitroglycerin 0.4 MG TAB.SUBL SL ONE (20:34)
[2017-10-26 20:43] LABS: BUN/Creatinine Ratio 21 (6-26); Blood Urea Nitrogen 13 mg/dL (6-20); Calcium 9.9 mg/dL (8.6-10.3); Carbon Dioxide 30 mEq/L (23-29); Chloride 102 mEq/L (98-107); Glucose 149 mg/dL (70-105); Osmolality,Calculated 295 (280-300); Potassium 3.9 mEq/L (3.5-5.1); Sodium 141 mEq/L (136-145); Troponin I < 0.03 ng/mL (< 0.04); eGFR For African Americans > 60 (> 60); eGFR For Non-African Americans > 60 (> 60)
[2017-10-26] MEDS ORDERED: 0.9 % Sodium Chloride 1,000 ML IVC ONE (21:52)
[2017-10-26] MEDS ORDERED: Azithromycin 500 MG in D5% in Water 250 ML IVPB ONE (21:58)
--- NOTE | 2017-10-26 23:12 | Emergency Department Note ---
Disposition Clinical Impression: COPD exacerbation, Respiratory distress, Sinus tachycardia Disposition: Admitted As Inpatient Condition: Fair Referrals: Marilyn Rojas CNP [Primary Care Provider] - Forms: ED Satisfaction Letter General Adult HPI - General Chief complaint: ED Shortness of Breath/Dyspnea Stated complaint: PHYLLIS Time Seen by Provider: 10/26/17 19:20 Source: patient Limitations: other (Patient appears to be in respiratory distress. Breathing through pursed lips) - History of Present Illness Pain Scale: 0 - Related Data Home Medications Medication Instructions Recorded Confirmed Docusate [Colace] 100 mg PO BID 07/25/17 10/26/17 Ipratropium/Albuterol Neb [Duoneb] 3 ml IH Q4H PRN 07/25/17 10/26/17 Oxygen 4 l NS AD 07/25/17 10/26/17 Roflumilast [Daliresp] 500 mcg PO DAILY 07/25/17 10/26/17 Metoprolol [Lopressor] 25 mg PO BID 09/10/17 10/26/17 Omeprazole [PriLOSEC] 20 mg PO 0730 09/30/17 10/26/17 Previous Rx's Medication Instructions Recorded Acetaminophen [Tylenol] 650 mg PO Q6HR PRN tablet 09/20/17 Albuterol Sulfate [Albuterol 2 puff IH Q4H PRN #1 inhaler 09/20/17 Inhaler] Budesonide Neb [Pulmicort Neb] 0.5 mg IH BID #1 inhsol 09/20/17 Furosemide [Lasix] 40 mg PO TID #90 tab 09/20/17 Mometasone/Formoterol [Dulera 200 2 puff IH BID #1 hfa.aer.ad 09/20/17 Mcg/5 Mcg Inhaler] Rivaroxaban [Xarelto] 20 mg PO DAILY #60 tablet 09/20/17 Tiotropium Amery [Spiriva 2 puff IH DAILY #1 mist.inhal 09/20/17 Respimat] Umeclidinium Amery [Incruse 62.5 mcg IH DAILY #1 blst.w.dev 09/20/17 Ellipta] Allergies Allergy/AdvReac Type Severity Reaction Status Date / Time levofloxacin AdvReac Blurry Verified 10/26/17 22:20 [facility] Constitutional: Reports: fever Cardiovascular: Reports: chest pain Respiratory: Reports: cough, dyspnea. Denies: hemoptysis, sputum production Gastrointestinal: Denies: abdominal pain, nausea, vomiting Genitourinary: Denies: urgency, dysuria, frequency Musculoskeletal: Denies: back pain, neck pain Neurological: Reports: weakness Endocrine: Reports: fatigue Past Medical History - Past Medical History Medical history: Reports: COPD Psychiatric history: Reports: no psych history - Social History Smoking Status: Former smoker Smokeless Tobacco Status: No Alcohol use: Reports: none Drug use: Reports: marijuana Physical Exam - General Limitations: other (Patient appears to be in respiratory distress. Breathing through pursed lips) General appearance: alert, in distress Course Vital Signs Temperature 98.0 F 10/26/17 18:07 Pulse Rate 122 10/26/17 18:07 Respiratory Rate 22 10/26/17 18:07 Blood Pressure 121/75 10/26/17 18:07 O2 Sat by Pulse Oximetry 97 10/26/17 18:07 Temperature 98.0 F 10/26/17 19:42 Pulse Rate 125 10/26/17 20:41 Respiratory Rate 24 10/26/17 22:52 Blood Pressure 137/90 10/26/17 20:41 O2 Sat by Pulse Oximetry 96 10/26/17 22:52 Oxygen Delivery Oxygen Delivery Bipap Medical Decision Making - Lab Data Result diagrams: 10/26/17 19:48 10/26/17 19:48 Lab Results 10/26/17 10/26/17 10/26/17 Range/Units 19:48 19:48 19:48 WBC (4.3-11.1) K/mcL RBC (4.19-5.50) M/mcL Hgb (12.9-16.9) g/dL Hct (37.5-50.1) % MCV (83.0-100.0) fL MCH (28.0-33.3) pg MCHC (31.6-35.5) g/dL RDW (11.5-14.5) % Plt Count (140-400) K/mcL MPV (9.4-12.4) fL Immature Gran % (0-4) % Seg Neutrophils % % Lymphocytes % % Monocytes % % Eosinophils % % Basophils % % Neutrophils # (1.6-8.9) K/mcL Lymphocytes # (0.6-4.6) K/mcL Monocytes # (0.0-1.3) K/mcL Eosinophils # (0.0-0.6) K/mcL Basophils # (0.0-0.2) K/mcL PT 15.9 H (9.4-12.1) Seconds INR 1.5 APTT 35.2 (26.0-36.0) Seconds Sodium 141 (136-145) mEq/L Potassium 3.9 (3.5-5.1) mEq/L Chloride 102 (98-107) mEq/L Carbon Dioxide 30 H (23-29) mEq/L BUN 13 (6-20) mg/dL Creatinine 0.62 L (0.70-1.30) mg/dL Est GFR ( Amer) > 60 (> 60) Est GFR (Non-Af Amer) > 60 (> 60) BUN/Creatinine Ratio 21 (6-26) Glucose 149 H (70-105) mg/dL Calculated Osmolality 295 (280-300) Lactic Acid 2.3 H (0.5-2.2) mmol/L Calcium 9.9 (8.6-10.3) mg/dL Troponin I < 0.03 (< 0.04) ng/mL B-Natriuretic Peptide (Less than 100) pg/mL 10/26/17 10/26/17 Range/Units 19:48 19:48 WBC 6.1 (4.3-11.1) K/mcL RBC 3.79 L (4.19-5.50) M/mcL Hgb 10.9 L (12.9-16.9) g/dL Hct 34.5 L (37.5-50.1) % MCV 91.0 (83.0-100.0) fL MCH 28.8 (28.0-33.3) pg MCHC 31.6 (31.6-35.5) g/dL RDW 15.1 H (11.5-14.5) % Plt Count 309 (140-400) K/mcL MPV 10.3 (9.4-12.4) fL Immature Gran % 0.7 (0-4) % Seg Neutrophils % 78.7 % Lymphocytes % 16.0 % Monocytes % 4.2 % Eosinophils % 0.2 % Basophils % 0.2 % Neutrophils # 4.8 (1.6-8.9) K/mcL Lymphocytes # 1.0 (0.6-4.6) K/mcL Monocytes # 0.3 (0.0-1.3) K/mcL Eosinophils # 0.0 (0.0-0.6) K/mcL Basophils # 0.0 (0.0-0.2) K/mcL PT (9.4-12.1) Seconds INR APTT (26.0-36.0) Seconds Sodium (136-145) mEq/L Potassium (3.5-5.1) mEq/L Chloride (98-107) mEq/L Carbon Dioxide (23-29) mEq/L BUN (6-20) mg/dL Creatinine (0.70-1.30) mg/dL Est GFR ( Amer) (> 60) Est GFR (Non-Af Amer) (> 60) BUN/Creatinine Ratio (6-26) Glucose (70-105) mg/dL Calculated Osmolality (280-300) Lactic Acid (0.5-2.2) mmol/L Calcium (8.6-10.3) mg/dL Troponin I (< 0.04) ng/mL B-Natriuretic Peptide 32 (Less than 100) pg/mL Attestation Statement - Attestation Attestation: I examined this patient and my medical decision-making was reviewed with the Resident Physician, Dr. Dos Santos. I agree with the documented findings, disposition and treatment plan as described except to the extent set forth below. Patient is a 49-year-old white male with a history of COPD who presents to the emergency department with increased work of breathing, shortness of breath, and hypoxia. Patient with recent hospitalization for left lower lobe pneumonia with resulting sepsis as well as it transient drop in hemoglobin requiring transfusion. Patient complains of some tightness across his chest worse left greater than right although no prior cardiac history. I agree with patient's physical exam findings as documented. Patient was transitioned to BiPAP soon after arrival to the ED due to respiratory distress. Lab evaluation was performed EKG, and chest imaging. Patient was extremely tachycardic. Blood pressure stable. EKG shows a sinus tachycardia without acute ischemia. Chest x-ray showed remnants of his left lower lobe pneumonia but much improved from prior imaging. Patient went for CTA of the chest which was negative for PE. Antibiotics were initiated as well as steroids breathing treatment and patient was clinically improved with improved vital signs. Case was discussed with hospitalist and patient was admitted for further evaluation and management of acute exacerbation of COPD.
[2017-10-26] MEDS ORDERED: Naloxone 0.4 MG/ML INJ IVP PRN (23:15)
[2017-10-26] MEDS ORDERED: Acetaminophen 325 MG TABLET PO PRN (23:15)
[2017-10-26] MEDS ORDERED: Levalbuterol Neb 1.25 MG/3 ML IH PRN (23:20)
--- NOTE | 2017-10-26 23:36 | Internal Med History&Physical ---
Date of Encounter: 10/26/17 Time of Encounter: 22:00 Internal Medicine - H&P: HPI Chief complaint: Shortness of breath Admitted From: Home Plans for Post Hospital Care: Home History of present illness: Mr. Blanchard is a 57 year old male presented to ER for shortness of breath. Past medical history is significant for COPD on home oxygen, hypertension, history of PE on xarelto. Patient said he starts to have increased the shortness of breath since yesterday. With nonproductive cough. Patient denies chest pain but complained of chest tightness. Patient has mild nausea but no vomiting. Patient has no fever. In the emergency room, CTA has been done, negative for PE. Patient was treated as COPD exacerbation. Patient was given steroid and bronchodilator and placed on BiPAP. His symptoms has improved after treatment. Patient was admitted for further management. Past Med Surg Social Fam HX - Past Medical History Medical history: COPD Psychiatric history: no psych history - Social History Smoking Status: Former smoker Smokeless Tobacco Status: No Alcohol use: none Drug use: marijuana - Family History Father Living Status: Hx Family Cancer: Yes (colon) Internal Medicine - H&P: Meds Docusate [Colace] 100 mg PO BID 07/25/17 [History] Ipratropium/Albuterol Neb [Duoneb] 3 ml IH Q4H PRN 07/25/17 [History] Oxygen 4 l NS AD 07/25/17 [History] Roflumilast [Daliresp] 500 mcg PO DAILY 07/25/17 [History] Metoprolol [Lopressor] 25 mg PO BID 09/10/17 [History] Acetaminophen [Tylenol] 650 mg PO Q6HR PRN tablet 09/20/17 [Rx] Albuterol Sulfate [Albuterol Inhaler] 2 puff IH Q4H PRN #1 inhaler 09/20/17 [Rx] Budesonide Neb [Pulmicort Neb] 0.5 mg IH BID #1 inhsol 09/20/17 [Rx] Furosemide [Lasix] 40 mg PO TID #90 tab 09/20/17 [Rx] Mometasone/Formoterol [Dulera 200 Mcg/5 Mcg Inhaler] 2 puff IH BID #1 hfa.aer.ad 09/20/17 [Rx] Rivaroxaban [Xarelto] 20 mg PO DAILY #60 tablet 09/20/17 [Rx] Tiotropium Gordon [Spiriva Respimat] 2 puff IH DAILY #1 mist.inhal 09/20/17 [Rx ] Umeclidinium Gordon [Incruse Ellipta] 62.5 mcg IH DAILY #1 blst.w.dev 09/20/17 [Rx] Omeprazole [PriLOSEC] 20 mg PO 0730 09/30/17 [History] 3 Allergy/AdvReac Type Severity Reaction Status Date / Time levofloxacin AdvReac Blurry Verified 10/26/17 22:20 [facility] Systems PM: A 10-system review of systems was performed and is negative for pertinent findings except as documented above in the HPI. - Constitutional Vitals: Temp Pulse Resp BP Pulse Ox 98.0 F 125 24 137/90 96 10/26/17 19:42 10/26/17 20:41 10/26/17 22:52 10/26/17 20:41 10/26/17 22:52 General appearance: Present: A&O X 3, no acute distress, answers questions appropriately - Head Head exam: Present: atraumatic, normocephalic - Eye Eye exam: Present: PERRL, conjuntiva pink, sclera anicteric Pupils: Present: PERRL - Neck Neck exam general surgery: Present: supple, trachea midline. Absent: lymphadenopathy - Respiratory Respiratory exam: Present: CTAB, wheezes (Scattered wheezes bilaterally). Absent: accessory muscle use, rales, rhonchi - Cardiovascular Cardiovascular exam: Present: RRR, +S1, +S2. Absent: diastolic murmur, gallop, rubs, systolic murmur - GI/Abdominal GI/Abdominal exam: Present: normal bowel sounds, soft, no peritoneal signs. Absent: distended, tenderness - Extremities Exam Extremities exam: Present: warm, radial pulses palpable and symmetrical. Absent : calf tenderness, cyanotic, pedal edema - Neurological Exam Neurological exam: Present: CN II-XII intact, oriented X3, no focal deficits. Absent: pronater drift, facial droop, speech deficit - Skin Skin exam: Present: dry, intact Internal Med - H&P Results - Labs CBC & Chem 7: 10/26/17 19:48 10/26/17 19:48 Labs: Short CBC 10/26/17 Range/Units 19:48 WBC 6.1 (4.3-11.1) K/mcL Hgb 10.9 L (12.9-16.9) g/dL Hct 34.5 L (37.5-50.1) % Plt Count 309 (140-400) K/mcL Neutrophils # 4.8 (1.6-8.9) K/mcL BMP 10/26/17 19:48 Sodium 141 Potassium 3.9 Chloride 102 Carbon Dioxide 30 H BUN 13 Creatinine 0.62 L Glucose 149 H Calcium 9.9 Cardiac Enzymes 10/26/17 Range/Units 19:48 Troponin I < 0.03 (< 0.04) ng/mL - Impressions ITS Impressions Chest X-Ray 10/26/17 18:59 IMPRESSION: 1. Improvement in previously noted airspace disease in the left lower lobe with some residual scattered coarse nodular opacities. 2. No new focal lung opacity or consolidation. 3. Emphysema. D/ / 10/26/2017 19:20:09 Francis Marcos MD / aiyana Interpreting Provider: Francis Marcos MD Chest CTA 10/26/17 19:28 IMPRESSION: No evidence of pulmonary embolism or acute pulmonary abnormality. Mild emphysema. D/ / 10/26/2017 21:47:08 Chidi Garcia MD / aiyana Interpreting Provider: Chidi Garcia MD - Assessment and plan (1) Chest tightness Current Visit: Yes Status: Acute Assessment and plan: Patient denies chest pain. Denies history of CAD. - Less likely ACS. Probably due to COPD exacerbation. We will check 3 sets of troponin. (2) COPD exacerbation Current Visit: Yes Status: Acute Assessment and plan: Patient has history of COPD. Increase the shortness of breath with nonproductive cough. Has some wheezing. Consider COPD exacerbation. - Continuous antibiotics, steroids, and bronchodilator - Continue BiPAP and oxygen supportive treatment. Continue symptomatic treatment. (3) Essential hypertension Current Visit: No Status: Chronic Assessment and plan: Continue home medications. Monitor BP closely (4) History of pulmonary embolism Current Visit: No Status: Chronic Assessment and plan: Continue home medication xarelto (5) DVT prophylaxis Current Visit: No Status: Resolved Assessment and plan: Patient is on xarelto - Time Spent With Patient Total time spent is greater than 50% in coordination of care (as documented) at patient's floor/unit and/or counseling patient: 40 minutes Greater than 35 minutes
[2017-10-27 01:13] LABS: Basophils % 0.2 %; Hematocrit 30.9 % (37.5-50.1); Hemoglobin 9.8 g/dL (12.9-16.9); Immature Granulocytes % 0.5 % (0-4); Lymphocytes # 0.5 K/mcL (0.6-4.6); Lymphocytes % 8.5 %; Mean Corpuscular HGB Conc 31.7 g/dL (31.6-35.5); Mean Corpuscular Volume 91.4 fL (83.0-100.0); Mean Platelet Volume 9.9 fL (9.4-12.4); Monocytes # 0.1 K/mcL (0.0-1.3); Monocytes % 0.8 %; Neutrophils # 5.7 K/mcL (1.6-8.9); Nucleated Red Blood Cells 0.6 /100 WBC (0); Platelet Count 274 K/mcL (140-400); Red Blood Count 3.38 M/mcL (4.19-5.50)
[2017-10-27] MEDS: 0.9 % Sodium Chloride 1,000 ML IVC SCH ×2 (01:33→13:19)
[2017-10-27 01:40] LABS: BUN/Creatinine Ratio 25 (6-26); Blood Urea Nitrogen 13 mg/dL (6-20); Calcium 9.4 mg/dL (8.6-10.3); Carbon Dioxide 28 mEq/L (23-29); Chloride 101 mEq/L (98-107); Glucose 144 mg/dL (70-105); Magnesium 1.8 mg/dL (1.6-2.6); Osmolality,Calculated 289 (280-300); Sodium 138 mEq/L (136-145); eGFR For African Americans > 60 (> 60); eGFR For Non-African Americans > 60 (> 60)
[2017-10-27] MEDS: Levalbuterol Neb 1.25 MG/3 ML IH SCH ×4 (04:33→21:29)
[2017-10-27] MEDS: *HR* Rivaroxaban 10 MG TABLET PO SCH (07:44)
[2017-10-27] MEDS: predniSONE 20 MG TABLET PO SCH (07:44)
[2017-10-27] MEDS: Furosemide 20 MG TABLET PO SCH ×2 (07:44→15:36)
[2017-10-27] MEDS: (Roflumilast [Daliresp] 500 MCG) PO SCH (07:44)
[2017-10-27] MEDS ORDERED: NON-FORMULARY MEDICATION 1 EACH EACH (Mometasone/Formoterol [Dulera 200 Mcg/5 Mcg Inhaler] IH SCH (09:00)
[2017-10-27] MEDS: Budesonide Neb 0.5 MG/2 ML IH SCH ×2 (09:16→21:29)
--- NOTE | 2017-10-27 15:56 | Internal Med Progress Note ---
Date of Encounter: 10/27/17 Time of Encounter: 11:00 - Assessment and plan (1) DVT prophylaxis Current Visit: No Status: Resolved (2) Essential hypertension Current Visit: No Status: Chronic (3) History of pulmonary embolism Current Visit: No Status: Chronic (4) COPD exacerbation Current Visit: Yes Status: Acute Assessment and plan: With the patient history of severe COPD history of pulmonary embolism history of recurrent hospitalization he is currently on 4 L at home. Patient would benefit from home BiPAP may consider ECF will consult pulmonary (5) Chest tightness Current Visit: Yes Status: Acute (6) Volume overload Current Visit: Yes Status: Acute Assessment and plan: Will change lasix to IV , close monitoring , salt restriction and daily weight, Qualifiers: Hypervolemia type: unspecified Qualified Code(s): E87.70 - Fluid overload, unspecified - Time Spent With Patient Total time spent is greater than 50% in coordination of care (as documented) at patient's floor/unit and/or counseling patient: - Subjective Interval history: CC sob , Orthopnea, weight gain . 57-year-old male with past history of severe COPD history of pulmonary embolism recurrent hospitalization up to 3-4 time a month in different hospital for worsening of his shortness of breath. Recommend course of steroid. Patient is feeling much better after being on BiPAP overnight. Continued to complain of orthopnea. He lay down on the recliner at home sitting up - Constitutional Vitals: Temp Pulse Resp BP Pulse Ox 97.5 F L 84 16 135/80 92 10/27/17 15:11 10/27/17 15:11 10/27/17 15:11 10/27/17 15:11 10/27/17 15:11 General appearance: Present: A&O X 3, no acute distress, answers questions appropriately - Head Head exam: Present: atraumatic, normocephalic - Neck Neck exam general surgery: Present: supple, trachea midline. Absent: lymphadenopathy - Respiratory Respiratory exam: Present: decreased breath sounds, prolonged expiratory phase, rhonchi, wheezes. Absent: accessory muscle use, rales - Cardiovascular Cardiovascular exam: Present: RRR, +S1, +S2, systolic murmur. Absent: diastolic murmur, gallop, rubs - GI/Abdominal GI/Abdominal exam: Present: normal bowel sounds, soft, no peritoneal signs. Absent: distended, tenderness - Extremities Exam Extremities exam: Present: warm, radial pulses palpable and symmetrical. Absent : calf tenderness, cyanotic, pedal edema - Neurological Exam Neurological exam: Present: CN II-XII intact, oriented X3, no focal deficits. Absent: pronater drift, facial droop, speech deficit Internal Medicine: Result - Labs CBC & Chem 7: 10/27/17 00:47 10/27/17 00:47 Labs: Short CBC 10/27/17 Range/Units 00:47 WBC 6.3 (4.3-11.1) K/mcL Hgb 9.8 L (12.9-16.9) g/dL Hct 30.9 L (37.5-50.1) % Plt Count 274 (140-400) K/mcL Neutrophils # 5.7 (1.6-8.9) K/mcL BMP 10/27/17 00:47 Sodium 138 Potassium 4.0 Chloride 101 Carbon Dioxide 28 BUN 13 Creatinine 0.52 L Glucose 144 H Calcium 9.4 Cardiac Enzymes 10/27/17 10/27/17 Range/Units 00:47 05:17 Troponin I < 0.03 < 0.03 (< 0.04) ng/mL - ABG Interpretation ABG results: PT/INR, D-dimer PT 15.9 Seconds (9.4-12.1) H 10/26/17 19:48 Consult Discharge Plan - Plan Referrals: Marilyn Rojas CNP [Primary Care Provider] - 10/31/17 4:15 pm
[2017-10-27] MEDS ORDERED: Furosemide 40 MG/4 ML VIAL IVP SCH (16:00)
[2017-10-27] MEDS: Furosemide 40 MG/4 ML VIAL IVP SCH ×2 (16:46→21:53)
--- NOTE | 2017-10-27 17:48 | Electrocardiograph Report ---
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
[2017-10-27] MEDS ORDERED: Azithromycin 250 MG in D5% in Water 250 ML IVPB SCH ×2 (18:45)
[2017-10-27 19:17] LABS: ABG Base Excess 9 mEq/L (-2 to 3); ABG HCO3 34 mEq/L (21-27); ABG Oxygen Saturation 98 % (95-98); ABG PCO2 53 mmHg (35-45); ABG PH 7.42 pH Units (7.32-7.45); ABG PO2 103 mmHg (85-104); ABG TCO2 36 mEq/L (20-26); Blood Gas Modality CPAP/PS; Blood Gas PEEP 6 cm H2O; Blood Gas Pressure Support 12 cm H2O
[2017-10-28] MEDS: Levalbuterol Neb 1.25 MG/3 ML IH SCH ×2 (03:34→09:41)
[2017-10-28 04:46] LABS: Basophils % 0.3 %; Eosinophils # 0.1 K/mcL (0.0-0.6); Eosinophils % 0.7 %; Hematocrit 33.8 % (37.5-50.1); Hemoglobin 10.6 g/dL (12.9-16.9); Immature Granulocytes % 0.4 % (0-4); Lymphocytes # 1.5 K/mcL (0.6-4.6); Lymphocytes % 19.8 %; Mean Corpuscular HGB Conc 31.4 g/dL (31.6-35.5); Mean Corpuscular Hemoglobin 28.5 pg (28.0-33.3); Mean Corpuscular Volume 90.9 fL (83.0-100.0); Mean Platelet Volume 10.1 fL (9.4-12.4); Monocytes # 0.6 K/mcL (0.0-1.3); Monocytes % 8.5 %; Neutrophils # 5.2 K/mcL (1.6-8.9); Nucleated Red Blood Cells 0.3 /100 WBC (0); Platelet Count 291 K/mcL (140-400); Red Blood Count 3.72 M/mcL (4.19-5.50); Red Cell Distribution Width 14.9 % (11.5-14.5); Segmented Neutrophils % 70.3 %
[2017-10-28 04:58] LABS: Albumin 3.5 g/dL (3.5-5.7); BUN/Creatinine Ratio 27 (6-26); Blood Urea Nitrogen 15 mg/dL (6-20); Calcium 9.3 mg/dL (8.6-10.3); Carbon Dioxide 35 mEq/L (23-29); Chloride 101 mEq/L (98-107); Glucose 93 mg/dL (70-105); Osmolality,Calculated 295 (280-300); Potassium 3.3 mEq/L (3.5-5.1); Sodium 142 mEq/L (136-145); eGFR For African Americans > 60 (> 60); eGFR For Non-African Americans > 60 (> 60)
[2017-10-28] MEDS: predniSONE 20 MG TABLET PO SCH (09:33)
[2017-10-28] MEDS: *HR* Rivaroxaban 10 MG TABLET PO SCH (09:33)
[2017-10-28] MEDS: Furosemide 40 MG/4 ML VIAL IVP SCH (09:34)
[2017-10-28] MEDS: (Roflumilast [Daliresp] 500 MCG) PO SCH (09:34)
[2017-10-28] MEDS: Budesonide Neb 0.5 MG/2 ML IH SCH (09:41)
--- NOTE | 2017-10-28 09:47 | Pulmonology Consult Note ---
<GautamglennaCyndi daniels M - Last Filed: 10/28/17 11:57> Date of Encounter: 10/28/17 Medications and Allergies Docusate [Colace] 100 mg PO BID 07/25/17 [History] Ipratropium/Albuterol Neb [Duoneb] 3 ml IH Q4H PRN 07/25/17 [History] Oxygen 4 l NS AD 07/25/17 [History] Roflumilast [Daliresp] 500 mcg PO DAILY 07/25/17 [History] Metoprolol [Lopressor] 25 mg PO BID 09/10/17 [History] Acetaminophen [Tylenol] 650 mg PO Q6HR PRN tablet 09/20/17 [Rx] Albuterol Sulfate [Albuterol Inhaler] 2 puff IH Q4H PRN #1 inhaler 09/20/17 [Rx] Budesonide Neb [Pulmicort Neb] 0.5 mg IH BID #1 inhsol 09/20/17 [Rx] Furosemide [Lasix] 40 mg PO TID #90 tab 09/20/17 [Rx] Mometasone/Formoterol [Dulera 200 Mcg/5 Mcg Inhaler] 2 puff IH BID #1 hfa.aer.ad 09/20/17 [Rx] Rivaroxaban [Xarelto] 20 mg PO DAILY #60 tablet 09/20/17 [Rx] Tiotropium [place] [Spiriva Respimat] 2 puff IH DAILY #1 mist.inhal 09/20/17 [Rx ] Umeclidinium [place] [Incruse Ellipta] 62.5 mcg IH DAILY #1 blst.w.dev 09/20/17 [Rx] Omeprazole [PriLOSEC] 20 mg PO 0730 09/30/17 [History] Azithromycin 250 mg PO DAILY 3 Days #3 tablet 10/28/17 [Rx] predniSONE [PredniSONE] 40 mg PO DAILY 3 Days #3 tablet 10/28/17 [Rx] 3 Allergy/AdvReac Type Severity Reaction Status Date / Time levofloxacin AdvReac Blurry Verified 10/26/17 22:20 Vision All Systems: The remainder of the systems were reviewed and are negative Physical Examination Vital Signs: Vital Signs, Last 4 Hours Temp Pulse Resp BP Pulse Ox 10/28/17 09:41 16 98 10/28/17 09:30 98 10/28/17 08:20 97.5 F L 69 16 100/63 98 Results - Laboratory Findings CBC and BMP: 10/28/17 04:05 10/28/17 04:05 ABG ABG pH 7.42 pH Units (7.32-7.45) 10/27/17 19:13 ABG pCO2 53 mmHg (35-45) H 10/27/17 19:13 ABG pO2 103 mmHg (85-104) 10/27/17 19:13 ABG O2 Saturation 98 % (95-98) 10/27/17 19:13 PT/INR, D-dimer PT 15.9 Seconds (9.4-12.1) H 10/26/17 19:48 Abnormal lab findings: Abnormal lab results RBC 3.72 M/mcL (4.19-5.50) L 10/28/17 04:05 Hgb 10.6 g/dL (12.9-16.9) L 10/28/17 04:05 Hct 33.8 % (37.5-50.1) L 10/28/17 04:05 MCHC 31.4 g/dL (31.6-35.5) L 10/28/17 04:05 RDW 14.9 % (11.5-14.5) H 10/28/17 04:05 Nucleated RBCs/100 WBC 0.3 /100 WBC (0) H 10/28/17 04:05 PT 15.9 Seconds (9.4-12.1) H 10/26/17 19:48 ABG pCO2 53 mmHg (35-45) H 10/27/17 19:13 ABG HCO3 34 mEq/L (21-27) H 10/27/17 19:13 ABG Total CO2 36 mEq/L (20-26) H 10/27/17 19:13 ABG Base Excess 9 mEq/L (-2 to 3) H 10/27/17 19:13 Potassium 3.3 mEq/L (3.5-5.1) L 10/28/17 04:05 Carbon Dioxide 35 mEq/L (23-29) H 10/28/17 04:05 Creatinine 0.55 mg/dL (0.70-1.30) L 10/28/17 04:05 BUN/Creatinine Ratio 27 (6-26) H 10/28/17 04:05 - Clinical Findings Intake & Output: Intake & Output 10/27/17 10/28/17 10/28/17 23:59 07:59 15:59 Intake Total 730 / 730 1000 / 1000 120 / 120 Output Total 350 / 350 500 / 500 600 / 600 Balance 380 / 380 500 / 500 -480 / -480 Weight 87.6 kg Consult Discharge Plan - Plan Instructions: Chronic Obstructive Pulmonary Disease (DC) Referrals: Marilyn Rojas TREASURY SPECIALIST [Primary Care Provider] - 10/31/17 4:15 pm Prescriptions: Azithromycin 250 mg PO DAILY 3 Days #3 tablet predniSONE [PredniSONE] 40 mg PO DAILY 3 Days #3 tablet - Attending Attestation I examined this patient and my medical decision-making was reviewed with the Resident Physician. I agree with the documented findings, disposition and treatment plan as described except to the extent set forth below. Patient seen and examined. Labs, radiology, chart personally reviewed. 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 Patient stated he is feeling back to his normal and he wants to go home. From pulmonary standpoint he can be discharged home on taper steroid and continue bronchodilators. As outpatient he will need pulmonary rehabilitation and pulmonary function test. Thank you for consultation and please do not hesitate to call for any questions. Cardiovascular: stable <Teja Wilkinson - Last Filed: 10/28/17 13:47> Date of Encounter: 10/28/17 Time of Encounter: 09:46 Assessment and Plan (1) Acute exacerbation of chronic obstructive airways disease Current Visit: No Status: Acute 1. Will be happy to see patient as outpatient 2. Seems to be straightforward COPD exacerbation, continue nebs and steroid taper as outpatient 3. Patient feeling better and would like to go home History of Present Illness Consult date: 10/28/17 Requesting physician: Dorinda Stuart Reason for consult: COPD Chief complaint: copd History of present illness: patient came in with COPD exacerbation and feeling better now. states he feels back to baseline and wants to go home. No CP, fever. + cough and SOB Past Med Surg Social Fam HX - Past Medical History Medical history: asthma, COPD Psychiatric history: no psych history - Social History Smoking Status: Former smoker Smokeless Tobacco Status: No Alcohol use: none Drug use: marijuana - Family History Father Living Status: Hx Family Cancer: Yes (colon) All Systems: The remainder of the systems were reviewed and are negative Review of Systems: As reviewed in the HPI. All other systems reviewed are negative or normal. Physical Examination Vital Signs: Vital Signs, Last 4 Hours Temp Pulse Resp BP Pulse Ox 10/28/17 08:20 97.5 F L 69 16 100/63 98 General appearance: no acute distress Eyes: nonicteric ENT: oropharynx moist Neck: supple Effort: normal Inspection: normal Auscultation: bilateral: wheezes Cardiovascular: regular rate and rhythm Gastrointestinal: normoactive bowel sounds, non-distended Integumentary: normal Extremities: no cyanosis, no edema, no clubbing Musculoskeletal: no deformities, ROM normal normal mental status, non-focal exam mood appropriate, affect normal Results - Laboratory Findings CBC and BMP: 10/28/17 04:05 10/28/17 04:05 ABG ABG pH 7.42 pH Units (7.32-7.45) 10/27/17 19:13 ABG pCO2 53 mmHg (35-45) H 10/27/17 19:13 ABG pO2 103 mmHg (85-104) 10/27/17 19:13 ABG O2 Saturation 98 % (95-98) 10/27/17 19:13 PT/INR, D-dimer PT 15.9 Seconds (9.4-12.1) H 10/26/17 19:48 Abnormal lab findings: Abnormal lab results RBC 3.72 M/mcL (4.19-5.50) L 10/28/17 04:05 Hgb 10.6 g/dL (12.9-16.9) L 10/28/17 04:05 Hct 33.8 % (37.5-50.1) L 10/28/17 04:05 MCHC 31.4 g/dL (31.6-35.5) L 10/28/17 04:05 RDW 14.9 % (11.5-14.5) H 10/28/17 04:05 Nucleated RBCs/100 WBC 0.3 /100 WBC (0) H 10/28/17 04:05 PT 15.9 Seconds (9.4-12.1) H 10/26/17 19:48 ABG pCO2 53 mmHg (35-45) H 10/27/17 19:13 ABG HCO3 34 mEq/L (21-27) H 10/27/17 19:13 ABG Total CO2 36 mEq/L (20-26) H 10/27/17 19:13 ABG Base Excess 9 mEq/L (-2 to 3) H 10/27/17 19:13 Potassium 3.3 mEq/L (3.5-5.1) L 10/28/17 04:05 Carbon Dioxide 35 mEq/L (23-29) H 10/28/17 04:05 Creatinine 0.55 mg/dL (0.70-1.30) L 10/28/17 04:05 BUN/Creatinine Ratio 27 (6-26) H 10/28/17 04:05 - Clinical Findings Intake & Output: Intake & Output 10/27/17 10/28/17 10/28/17 23:59 07:59 15:59 Intake Total 730 / 730 1000 / 1000 Output Total 350 / 350 500 / 500 600 / 600 Balance 380 / 380 500 / 500 -600 / -600 Weight 87.6 kg
--- NOTE | 2017-10-28 10:07 | Internal Med Progress Note ---
Date of Encounter: 10/28/17 Time of Encounter: 10:06 - Time Spent With Patient Total time spent is greater than 50% in coordination of care (as documented) at patient's floor/unit and/or counseling patient: - Constitutional Vitals: Temp Pulse Resp BP Pulse Ox 97.5 F L 69 16 100/63 98 10/28/17 08:20 10/28/17 08:20 10/28/17 08:20 10/28/17 08:20 10/28/17 08:20 General appearance: Present: A&O X 3, no acute distress, answers questions appropriately Internal Medicine: Result - Labs CBC & Chem 7: 10/28/17 04:05 10/28/17 04:05 Labs: Short CBC 10/28/17 Range/Units 04:05 WBC 7.3 (4.3-11.1) K/mcL Hgb 10.6 L (12.9-16.9) g/dL Hct 33.8 L (37.5-50.1) % Plt Count 291 (140-400) K/mcL Neutrophils # 5.2 (1.6-8.9) K/mcL BMP 10/28/17 04:05 Sodium 142 Potassium 3.3 L Chloride 101 Carbon Dioxide 35 H BUN 15 Creatinine 0.55 L Glucose 93 Calcium 9.3 Liver Function 10/28/17 Range/Units 04:05 Albumin 3.5 (3.5-5.7) g/dL - ABG Interpretation ABG results: ABG ABG pH 7.42 pH Units (7.32-7.45) 10/27/17 19:13 ABG pCO2 53 mmHg (35-45) H 10/27/17 19:13 ABG pO2 103 mmHg (85-104) 10/27/17 19:13 ABG O2 Saturation 98 % (95-98) 10/27/17 19:13 PT/INR, D-dimer PT 15.9 Seconds (9.4-12.1) H 10/26/17 19:48 Consult Discharge Plan - Plan Referrals: Marilyn Rojas SLEEVE MACHINE TENDER [Primary Care Provider] - 10/31/17 4:15 pm
--- NOTE | 2017-10-28 12:20 | Discharge Summary ---
- NOTES TO OUTPATIENT PROVIDER Notes to Outpatient Provider: Follow up with PCP in 3-5 days. Follow up with pulmonology in 4 weeks Orders not resulted at time of discharge: Pending orders Date of Encounter: 10/28/17 Time of Encounter: 12:18 - Discharge Diagnosis (1) Acute exacerbation of chronic obstructive airways disease Priority: Primary (.) Status: Acute Assessment and Plan: 57M with O2 dependent COPD and Hx PE on Xarelto presented due to worsening dyspnea and nonproductive cough for a day, found to have AECOPD. No chest pain. CTA negative for PE. Patient was treated as COPD exacerbation with azithromycin , prednisone, bronchodilator nebs. Initially required BiPAP. His symptoms has improved after treatment. On the day of discharge, he still had some wheezing on exam but he felt back to his baseline, and requested to be discharged. Pulmonology recommended follow up as OP in 4 weeks. Comments: . (2) Chronic respiratory failure with hypoxia Priority: Secondary Status: Chronic Assessment and Plan: Home O2 was continued on discharge Comments: .. (3) Dyspnea Priority: Secondary Status: Resolved Qualifiers: Dyspnea type: unspecified Qualified Code(s): R06.00 - Dyspnea, unspecified Hospital course: Mr. Blanchard is a 57 year old male with hospital course as above under A/P. Discharge discussed with: patient, nurse, call center consultant - Time Spent with Patient Total time spent providing and/or coordinating discharge services: Greater than 30 minutes - Discharge Medications Prescriptions: Azithromycin 250 mg PO DAILY 3 Days #3 tablet predniSONE [PredniSONE] 40 mg PO DAILY 3 Days #3 tablet Home Medications: Docusate [Colace] 100 mg PO BID 07/25/17 [History] Ipratropium/Albuterol Neb [Duoneb] 3 ml IH Q4H PRN 07/25/17 [History] Oxygen 4 l NS AD 07/25/17 [History] Roflumilast [Daliresp] 500 mcg PO DAILY 07/25/17 [History] Metoprolol [Lopressor] 25 mg PO BID 09/10/17 [History] Acetaminophen [Tylenol] 650 mg PO Q6HR PRN tablet 09/20/17 [Rx] Albuterol Sulfate [Albuterol Inhaler] 2 puff IH Q4H PRN #1 inhaler 09/20/17 [Rx] Budesonide Neb [Pulmicort Neb] 0.5 mg IH BID #1 inhsol 09/20/17 [Rx] Furosemide [Lasix] 40 mg PO TID #90 tab 09/20/17 [Rx] Mometasone/Formoterol [Dulera 200 Mcg/5 Mcg Inhaler] 2 puff IH BID #1 hfa.aer.ad 09/20/17 [Rx] Rivaroxaban [Xarelto] 20 mg PO DAILY #60 tablet 09/20/17 [Rx] Tiotropium [place] [Spiriva Respimat] 2 puff IH DAILY #1 mist.inhal 09/20/17 [Rx ] Umeclidinium [place] [Incruse Ellipta] 62.5 mcg IH DAILY #1 blst.w.dev 09/20/17 [Rx] Omeprazole [PriLOSEC] 20 mg PO 0730 09/30/17 [History] Azithromycin 250 mg PO DAILY 3 Days #3 tablet 10/28/17 [Rx] predniSONE [PredniSONE] 40 mg PO DAILY 3 Days #3 tablet 10/28/17 [Rx] Allergies/Adverse Reactions: 3 Allergy/AdvReac Type Severity Reaction Status Date / Time levofloxacin AdvReac Blurry Verified 10/26/17 22:20 Vision Date of admission: 10/26/17 23:38 Primary care physician: Marilyn Rojas CNP Consults: 10/27/17 01:55 Consult to Plumbing Assembler Installer [CONS] Routine Reason for SW Consult: patient has home health care and wishes to keep it through [facility] 10/27/17 08:53 Consult to Nurse Navigator [CONS] Routine Comment: COPD 10/27/17 16:02 Consult to Pulmonology [CONS] Routine Consulting Provider: [facility] Jeaneth Reason for Consult: Severe COPD, evaluation for need home CPAP or BiPAP Call Completed: Yes Discharging clinician: Edward Neri Anticipated date of discharge: 10/28/17 - Constitutional Vitals: Temp Pulse Resp BP Pulse Ox 97.5 F L 69 16 100/63 98 10/28/17 08:20 10/28/17 08:20 10/28/17 09:41 10/28/17 08:20 10/28/17 09:41 General appearance: Present: A&O X 3, no acute distress, answers questions appropriately - Head Head exam: Present: atraumatic, normal inspection - Eye Eye exam: Present: normal appearance, conjuntiva pink, sclera anicteric. Absent : conjunctival injection - ENT ENT exam: Present: mucous membranes moist - Neck Neck exam general surgery: Present: normal inspection. Absent: nuchal rigidity - Respiratory Respiratory exam: Present: prolonged expiratory phase, rhonchi, wheezes (mild). Absent: accessory muscle use, chest wall tenderness, decreased breath sounds, rales, respiratory distress, tachypnea - Cardiovascular Cardiovascular exam: Present: +S1, +S2. Absent: irregular rhythm, systolic murmur - GI/Abdominal GI/Abdominal exam: Present: normal bowel sounds, soft. Absent: guarding, rebound, rigid - Extremities Exam Extremities exam: Present: normal inspection. Absent: pedal edema - Neurological Exam Neurological exam: Present: alert, oriented X3. Absent: no focal deficits, speech deficit - Psychiatric Psychiatric exam: Present: normal affect, normal mood - Patient Status Disposition: Home, Self-Care Condition: Fair Functional capacity at discharge: independent ambulation Overall status at discharge: patient is back to baseline - Ambulatory Orders Ambulatory Orders: Discharge Order Time Frame: 1 Day, Facility: [facility], Location: Hospitalist - Discharge Instructions Instructions: Chronic Obstructive Pulmonary Disease (DC) Follow Up With: Marilyn Rojas CNP [Primary Care Provider] - 10/31/17 4:15 pm - Diet and Activity Activity: resume usual activities as tolerated, wear oxygen at all times Diet: advance to your usual diet
[2017-10-28 12:21] VITALS: BP 100/64
== END 2017-10-28 14:55 | disposition home or self-care (01) ==
LOC: 3BNU 18:03 → EMEROO 18:03 → 3BNU 10-27 01:36
PROVIDERS: ADMIT Internal Medicine; ATTEND Internal Medicine

== ENCOUNTER 2017-10-30 11:31 | Observation (INO) ==
[2017-10-30] MEDS ORDERED: Ipratropium/Albuterol Neb 3 ML IH ONE ×2 (11:51→17:23)
[2017-10-30] MEDS ORDERED: methylPREDNISolone 125 MG/2 ML VIAL IVP ONE (11:51)
[2017-10-30] MEDS ORDERED: Isovue-370 500 ML INFUS..BTL IV ONE ×2 (11:52→11:54)
[2017-10-30] MEDS ORDERED: Aspirin 81 MG TAB.CHEW PO ONE (11:53)
[2017-10-30] MEDS ORDERED: Nitroglycerin 0.4 MG TAB.SUBL SL PRN (11:53)
--- NOTE | 2017-10-30 11:58 | Emergency Department Note ---
Disposition Clinical Impression: COPD exacerbation Dyspnea Qualifiers: Dyspnea type: unspecified Qualified Code(s): R06.00 - Dyspnea, unspecified Chest pain Qualifiers: Chest pain type: other chest pain Qualified Code(s): R07.89 - Other chest pain Disposition: Admitted As Inpatient General Adult HPI - General Chief complaint: ED Shortness of Breath/Dyspnea Stated complaint: Difficulty Breathing/Eben HR Time Seen by Provider: 10/30/17 11:36 Source: patient Nursing Notes Reviewed: Yes Vital Signs Reviewed: Yes - History of Present Illness HPI Narrative: 57-year-old male presents emergency Department after he was discharged from the hospital yesterday. Patient states that he is having shortness of breath and chest tightness. Patient was of oxygen at home. Patient reports previous history of blood clots. Pain Scale: 0 - Related Data Home Medications Medication Instructions Recorded Confirmed Docusate [Colace] 100 mg PO BID 07/25/17 10/30/17 Ipratropium/Albuterol Neb [Duoneb] 3 ml IH Q4H PRN 07/25/17 10/30/17 Oxygen 4 l NS AD 07/25/17 10/30/17 Roflumilast [Daliresp] 500 mcg PO DAILY 07/25/17 10/30/17 Metoprolol [Lopressor] 25 mg PO BID 09/10/17 10/30/17 Omeprazole [PriLOSEC] 20 mg PO 0730 09/30/17 10/30/17 Previous Rx's Medication Instructions Recorded Acetaminophen [Tylenol] 650 mg PO Q6HR PRN tablet 09/20/17 Albuterol Sulfate [Albuterol 2 puff IH Q4H PRN #1 inhaler 09/20/17 Inhaler] Budesonide Neb [Pulmicort Neb] 0.5 mg IH BID #1 inhsol 09/20/17 Furosemide [Lasix] 40 mg PO TID #90 tab 09/20/17 Mometasone/Formoterol [Dulera 200 2 puff IH BID #1 hfa.aer.ad 09/20/17 Mcg/5 Mcg Inhaler] Rivaroxaban [Xarelto] 20 mg PO DAILY #60 tablet 09/20/17 Tiotropium [place] [Spiriva 2 puff IH DAILY #1 mist.inhal 09/20/17 Respimat] Umeclidinium [place] [Incruse 62.5 mcg IH DAILY #1 blst.w.dev 09/20/17 Ellipta] Azithromycin 250 mg PO DAILY 3 Days #3 tablet 10/28/17 predniSONE [PredniSONE] 40 mg PO DAILY 3 Days #3 tablet 10/28/17 Allergies Allergy/AdvReac Type Severity Reaction Status Date / Time levofloxacin AdvReac Blurry Verified 10/26/17 22:20 [facility] ED: reviewed and negative except as stated. Review of Systems: As Per HPI Constitutional: Denies: fever Cardiovascular: Reports: chest pain Respiratory: Reports: cough, dyspnea Gastrointestinal: Denies: abdominal pain, nausea, vomiting Genitourinary: Denies: urgency, dysuria, frequency Musculoskeletal: Denies: back pain Integumentary: Denies: rash Neurological: Denies: headache, weakness, numbness, paresthesias Endocrine: Denies: fatigue Past Medical History - Past Medical History Medical history: Reports: asthma, COPD Psychiatric history: Reports: no psych history - Social History Smoking Status: Former smoker Smokeless Tobacco Status: No Alcohol use: Reports: none Drug use: Reports: marijuana Physical Exam - General Limitations: other (Breathing through pursed lips) General appearance: alert, in no apparent distress - Head Head exam: atraumatic, normocephalic - Eye Eye exam: Present: EOMI. Absent: scleral icterus - ENT ENT exam: normal exam, normal oropharynx - Neck Neck exam: Present: trachea midline - Chest Chest inspection: Present: normal inspection, symmetric chest wall rise - Respiratory Respiratory exam: Present: other (Course lung sounds throughout). Absent: respiratory distress, accessory muscle use - Cardiovascular Cardiovascular exam: Present: tachycardia - Abdominal Exam Abdominal exam: Present: soft, Non-Tender. Absent: distention, guarding, rebound, rigidity - Extremities Exam Extremities exam: Present: full ROM, normal capillary refill. Absent: tenderness - Neurological Exam Neurological exam: Present: alert, oriented X3 - Psychiatric Psychiatric exam: Present: normal affect, normal mood - Skin Skin exam: Present: warm, dry, intact, normal color Course Vital Signs Temperature 97.6 F 10/30/17 11:32 Pulse Rate 128 10/30/17 11:32 Respiratory Rate 24 10/30/17 11:32 Blood Pressure 138/93 10/30/17 11:32 O2 Sat by Pulse Oximetry 95 10/30/17 11:32 Temperature 97.6 F 10/30/17 11:40 Pulse Rate 105 10/30/17 13:48 Respiratory Rate 16 10/30/17 13:48 Blood Pressure 125/79 10/30/17 13:48 O2 Sat by Pulse Oximetry 92 10/30/17 13:48 Oxygen Delivery Oxygen Delivery Nasal Cannula Medical Decision Making - MDM Narrative Medical decision making narrative: 57-year-old male presents to the emergency department with concern for shortness of breath and chest pain. Patient states that he was recently discharged from the hospital for COPD exacerbation. Patient has an EKG that does not reveal any evidence of ischemic ST changes. Troponin was negative. Chest x-ray was within normal limits. CTA of the chest and not revealing any evidence of pulmonary embolus or pneumonia. CT scan of abdomen and pelvis did not reveal any evidence of acute process. Vital Signs Temperature 97.6 F 10/30/17 11:32 Pulse Rate 128 10/30/17 11:32 Respiratory Rate 24 10/30/17 11:32 Blood Pressure 138/93 10/30/17 11:32 O2 Sat by Pulse Oximetry 95 10/30/17 11:32 Temperature 97.6 F 10/30/17 11:40 Pulse Rate 105 10/30/17 13:48 Respiratory Rate 16 10/30/17 13:48 Blood Pressure 125/79 10/30/17 13:48 O2 Sat by Pulse Oximetry 92 10/30/17 13:48 Oxygen Delivery Oxygen Delivery Nasal Cannula Patient given 125 Solu-Medrol here in the emergency department as well as 3 DuoNeb's. He was also given nitroglycerin for his chest pain. Reports that chest pain responded to the nitroglycerin. Patient admitted to the hospital for further evaluation and observation of chest pain as well as possible COPD exacerbation. Hospitalist agrees accept admission. Patient agrees with the plan. Patient's creatinine is normal. Does not have a leukocytosis. Patient not given any antibiotics at this time. Patient hemodynamically stable on nasal cannula at time of admission. Patient given 1 L of normal saline as he is tachycardic. Chest X-Ray 10/30/17 11:51 IMPRESSION: 1. Stable chest x-ray with no active pulmonary disease. D/ / Haim Pyle MD / Haim Pyle MD Interpreting Provider: Haim Pyle MD Abdomen/Pelvis CT 10/30/17 11:52 IMPRESSION: 1. No acute process in the chest, abdomen, or pelvis. 2. No evidence of pulmonary embolism. 3. Moderate emphysema. 4. Moderate diverticulosis. D/ / 10/30/2017 14:18:24 Aleksey Bustamante MD / micaela Interpreting Provider: Aleksey Bustamante MD Chest CTA 10/30/17 11:54 IMPRESSION: 1. No acute process in the chest, abdomen, or pelvis. 2. No evidence of pulmonary embolism. 3. Moderate emphysema. 4. Moderate diverticulosis. D/ / 10/30/2017 14:18:24 Aleksey Bustamante MD / micaela Interpreting Provider: Aleksey Bustamante MD - Lab Data Result diagrams: 10/30/17 11:59 10/30/17 11:59 Lab Results 10/30/17 10/30/17 10/30/17 Range/Units 11:59 11:59 11:59 WBC 7.8 (4.3-11.1) K/mcL RBC 3.79 L (4.19-5.50) M/mcL Hgb 11.0 L (12.9-16.9) g/dL Hct 34.3 L (37.5-50.1) % MCV 90.5 (83.0-100.0) fL MCH 29.0 (28.0-33.3) pg MCHC 32.1 (31.6-35.5) g/dL RDW 15.1 H (11.5-14.5) % Plt Count 274 (140-400) K/mcL MPV 9.6 (9.4-12.4) fL Immature Gran % 0.3 (0-4) % Seg Neutrophils % 68.6 % Lymphocytes % 21.6 % Monocytes % 4.5 % Eosinophils % 4.6 % Basophils % 0.4 % Neutrophils # 5.3 (1.6-8.9) K/mcL Lymphocytes # 1.7 (0.6-4.6) K/mcL Monocytes # 0.4 (0.0-1.3) K/mcL Eosinophils # 0.4 (0.0-0.6) K/mcL Basophils # 0.0 (0.0-0.2) K/mcL Sodium 139 (136-145) mEq/L Potassium 3.7 (3.5-5.1) mEq/L Chloride 99 (98-107) mEq/L Carbon Dioxide 33 H (23-29) mEq/L BUN 11 (6-20) mg/dL Creatinine 0.39 L (0.70-1.30) mg/dL Est GFR ( Amer) > 60 (> 60) Est GFR (Non-Af Amer) > 60 (> 60) BUN/Creatinine Ratio 28 H (6-26) Glucose 90 (70-105) mg/dL Calculated Osmolality 287 (280-300) Lactic Acid 1.1 (0.5-2.2) mmol/L Calcium 9.5 (8.6-10.3) mg/dL Troponin I < 0.03 (< 0.04) ng/mL B-Natriuretic Peptide (Less than 100) pg/mL 10/30/17 Range/Units 11:59 WBC (4.3-11.1) K/mcL RBC (4.19-5.50) M/mcL Hgb (12.9-16.9) g/dL Hct (37.5-50.1) % MCV (83.0-100.0) fL MCH (28.0-33.3) pg MCHC (31.6-35.5) g/dL RDW (11.5-14.5) % Plt Count (140-400) K/mcL MPV (9.4-12.4) fL Immature Gran % (0-4) % Seg Neutrophils % % Lymphocytes % % Monocytes % % Eosinophils % % Basophils % % Neutrophils # (1.6-8.9) K/mcL Lymphocytes # (0.6-4.6) K/mcL Monocytes # (0.0-1.3) K/mcL Eosinophils # (0.0-0.6) K/mcL Basophils # (0.0-0.2) K/mcL Sodium (136-145) mEq/L Potassium (3.5-5.1) mEq/L Chloride (98-107) mEq/L Carbon Dioxide (23-29) mEq/L BUN (6-20) mg/dL Creatinine (0.70-1.30) mg/dL Est GFR ( Amer) (> 60) Est GFR (Non-Af Amer) (> 60) BUN/Creatinine Ratio (6-26) Glucose (70-105) mg/dL Calculated Osmolality (280-300) Lactic Acid (0.5-2.2) mmol/L Calcium (8.6-10.3) mg/dL Troponin I (< 0.04) ng/mL B-Natriuretic Peptide 23 (Less than 100) pg/mL - EKG Data EKG #1 EKG attestation: Yes I reviewed and interpreted this EKG. EKG results narrative: 11:47 Ventricular rate 107 bpm, appearing 155 ms, QRS duration 93 ms, QT 341 ms, QTC 403 ms, left axis deviation. Sinus tachycardia with a ventricular rate of 107 bpm.
[2017-10-30 12:13] LABS: Basophils % 0.4 %; Eosinophils # 0.4 K/mcL (0.0-0.6); Eosinophils % 4.6 %; Hematocrit 34.3 % (37.5-50.1); Immature Granulocytes % 0.3 % (0-4); Lymphocytes # 1.7 K/mcL (0.6-4.6); Lymphocytes % 21.6 %; Mean Corpuscular HGB Conc 32.1 g/dL (31.6-35.5); Mean Corpuscular Volume 90.5 fL (83.0-100.0); Mean Platelet Volume 9.6 fL (9.4-12.4); Monocytes # 0.4 K/mcL (0.0-1.3); Monocytes % 4.5 %; Neutrophils # 5.3 K/mcL (1.6-8.9); Platelet Count 274 K/mcL (140-400); Red Blood Count 3.79 M/mcL (4.19-5.50); Red Cell Distribution Width 15.1 % (11.5-14.5); Segmented Neutrophils % 68.6 %
--- NOTE | 2017-10-30 12:19 | Emergency Department Note ---
Disposition Clinical Impression: Dyspnea Qualifiers: Dyspnea type: unspecified Qualified Code(s): R06.00 - Dyspnea, unspecified Disposition: Still a Patient Forms: ED Satisfaction Letter General Adult HPI - General Chief complaint: ED Shortness of Breath/Dyspnea Stated complaint: Difficulty Breathing/Eben HR Time Seen by Provider: 10/30/17 11:36 Source: patient - History of Present Illness Pain Scale: 0 - Related Data Home Medications Medication Instructions Recorded Confirmed Docusate [Colace] 100 mg PO BID 07/25/17 10/26/17 Ipratropium/Albuterol Neb [Duoneb] 3 ml IH Q4H PRN 07/25/17 10/26/17 Oxygen 4 l NS AD 07/25/17 10/26/17 Roflumilast [Daliresp] 500 mcg PO DAILY 07/25/17 10/26/17 Metoprolol [Lopressor] 25 mg PO BID 09/10/17 10/26/17 Omeprazole [PriLOSEC] 20 mg PO 0730 09/30/17 10/26/17 Previous Rx's Medication Instructions Recorded Acetaminophen [Tylenol] 650 mg PO Q6HR PRN tablet 09/20/17 Albuterol Sulfate [Albuterol 2 puff IH Q4H PRN #1 inhaler 09/20/17 Inhaler] Budesonide Neb [Pulmicort Neb] 0.5 mg IH BID #1 inhsol 09/20/17 Furosemide [Lasix] 40 mg PO TID #90 tab 09/20/17 Mometasone/Formoterol [Dulera 200 2 puff IH BID #1 hfa.aer.ad 09/20/17 Mcg/5 Mcg Inhaler] Rivaroxaban [Xarelto] 20 mg PO DAILY #60 tablet 09/20/17 Tiotropium [place] [Spiriva 2 puff IH DAILY #1 mist.inhal 09/20/17 Respimat] Umeclidinium [place] [Incruse 62.5 mcg IH DAILY #1 blst.w.dev 09/20/17 Ellipta] Azithromycin 250 mg PO DAILY 3 Days #3 tablet 10/28/17 predniSONE [PredniSONE] 40 mg PO DAILY 3 Days #3 tablet 10/28/17 Allergies Allergy/AdvReac Type Severity Reaction Status Date / Time levofloxacin AdvReac Blurry Verified 10/26/17 22:20 [facility] Past Medical History - Past Medical History Medical history: Reports: asthma, COPD Psychiatric history: Reports: no psych history - Social History Smoking Status: Former smoker Smokeless Tobacco Status: No Alcohol use: Reports: none Drug use: Reports: marijuana Physical Exam - General General appearance: alert, in no apparent distress Course Vital Signs Temperature 97.6 F 10/30/17 11:32 Pulse Rate 128 10/30/17 11:32 Respiratory Rate 24 10/30/17 11:32 Blood Pressure 138/93 10/30/17 11:32 O2 Sat by Pulse Oximetry 95 10/30/17 11:32 Temperature 97.6 F 10/30/17 11:40 Pulse Rate 105 10/30/17 11:44 Respiratory Rate 20 10/30/17 12:05 Blood Pressure 128/83 10/30/17 11:44 O2 Sat by Pulse Oximetry 94 10/30/17 12:05 Oxygen Delivery Oxygen Delivery Nasal Cannula Medical Decision Making - Lab Data Result diagrams: 10/30/17 11:59 Lab Results 10/30/17 Range/Units 11:59 WBC 7.8 (4.3-11.1) K/mcL RBC 3.79 L (4.19-5.50) M/mcL Hgb 11.0 L (12.9-16.9) g/dL Hct 34.3 L (37.5-50.1) % MCV 90.5 (83.0-100.0) fL MCH 29.0 (28.0-33.3) pg MCHC 32.1 (31.6-35.5) g/dL RDW 15.1 H (11.5-14.5) % Plt Count 274 (140-400) K/mcL MPV 9.6 (9.4-12.4) fL Immature Gran % 0.3 (0-4) % Seg Neutrophils % 68.6 % Lymphocytes % 21.6 % Monocytes % 4.5 % Eosinophils % 4.6 % Basophils % 0.4 % Neutrophils # 5.3 (1.6-8.9) K/mcL Lymphocytes # 1.7 (0.6-4.6) K/mcL Monocytes # 0.4 (0.0-1.3) K/mcL Eosinophils # 0.4 (0.0-0.6) K/mcL Basophils # 0.0 (0.0-0.2) K/mcL Attestation Statement - Attestation Attestation: I examined this patient and my medical decision-making was reviewed with the Resident Physician. I agree with the documented findings, disposition and treatment plan as described except to the extent set forth below. 57 year old male presntes to the ED with complaints of of difficulty with breathing and has a history of COPD and was most recently admitted to the hospital for pnuemonia and COPD excebration.WE will do a CTA chest to rule out PE vs pneumonia and breathing treatments at bedside. Not hypoxic at bedside, not febrile. He is tachycardiac.
[2017-10-30 12:33] LABS: Troponin I < 0.03 ng/mL (< 0.04)
[2017-10-30 12:35] LABS: BUN/Creatinine Ratio 28 (6-26); Blood Urea Nitrogen 11 mg/dL (6-20); Carbon Dioxide 33 mEq/L (23-29); Chloride 99 mEq/L (98-107); Potassium 3.7 mEq/L (3.5-5.1); Sodium 139 mEq/L (136-145); eGFR For African Americans > 60 (> 60)
[2017-10-30 12:36] LABS: Calcium 9.5 mg/dL (8.6-10.3); Glucose 90 mg/dL (70-105); Osmolality,Calculated 287 (280-300); eGFR For Non-African Americans > 60 (> 60)
[2017-10-30] MEDS ORDERED: 0.9 % Sodium Chloride 1,000 ML IVC ONE (14:00)
[2017-10-30] MEDS ORDERED: Acetaminophen 325 MG TABLET PO PRN ×2 (17:31→17:35)
[2017-10-30] MEDS ORDERED: Naloxone 0.4 MG/ML INJ IVP PRN (17:31)
--- NOTE | 2017-10-30 17:38 | Internal Med History&Physical ---
Date of Encounter: 10/30/17 Time of Encounter: 17:35 Internal Medicine - H&P: HPI Admitted From: Emergency Dept Plans for Post Hospital Care: Transfer Inp Rehab Fac History of present illness: Mr. Blanchard is a 57 year old male with past medical history of COPD, chronic respiratory failure on 4L NC or oxygen, former smoker, and Hx PE. Pt was discharged yesterday following management of COPD. He was discharged on steroid taper and antibiotic. Pt states today he woke up tachycardic and his HR was 160's. Reports association with CP and SOB. States he took a neb treatment checked his HR an hour later and it was in the 140's. In ED WBC 7.8, hgb 11.0, hct 34.3, 274. Na 139, K 3.7, BUN 11, Cr 0.39. Troponin <0.03 Chest x ray IMPRESSION: 1. Stable chest x-ray with no active pulmonary disease. CTA chest IMPRESSION: 1. No acute process in the chest, abdomen, or pelvis. 2. No evidence of pulmonary embolism. 3. Moderate emphysema. 4. Moderate diverticulosis. Past Med Surg Social Fam HX - Past Medical History Medical history: asthma, COPD Psychiatric history: no psych history - Social History Smoking Status: Former smoker Smokeless Tobacco Status: No Alcohol use: none Drug use: marijuana - Family History Father Living Status: Cause of : colon cancer Hx Family Cancer: Yes (colon) Internal Medicine - H&P: Meds Docusate [Colace] 100 mg PO BID 07/25/17 [History] Ipratropium/Albuterol Neb [Duoneb] 3 ml IH Q4H PRN 07/25/17 [History] Oxygen 4 l NS AD 07/25/17 [History] Roflumilast [Daliresp] 500 mcg PO DAILY 07/25/17 [History] Metoprolol [Lopressor] 25 mg PO BID 09/10/17 [History] Acetaminophen [Tylenol] 650 mg PO Q6HR PRN tablet 09/20/17 [Rx] Albuterol Sulfate [Albuterol Inhaler] 2 puff IH Q4H PRN #1 inhaler 09/20/17 [Rx] Budesonide Neb [Pulmicort Neb] 0.5 mg IH BID #1 inhsol 09/20/17 [Rx] Furosemide [Lasix] 40 mg PO TID #90 tab 09/20/17 [Rx] Mometasone/Formoterol [Dulera 200 Mcg/5 Mcg Inhaler] 2 puff IH BID #1 hfa.aer.ad 09/20/17 [Rx] Rivaroxaban [Xarelto] 20 mg PO DAILY #60 tablet 09/20/17 [Rx] Tiotropium [place] [Spiriva Respimat] 2 puff IH DAILY #1 mist.inhal 09/20/17 [Rx ] Umeclidinium [place] [Incruse Ellipta] 62.5 mcg IH DAILY #1 blst.w.dev 09/20/17 [Rx] Omeprazole [PriLOSEC] 20 mg PO 0730 09/30/17 [History] Azithromycin 250 mg PO DAILY 3 Days #3 tablet 10/28/17 [Rx] predniSONE [PredniSONE] 40 mg PO DAILY 3 Days #3 tablet 10/28/17 [Rx] 3 Allergy/AdvReac Type Severity Reaction Status Date / Time levofloxacin AdvReac Blurry Verified 10/26/17 22:20 [facility] PM: A 10-system review of systems was performed and is negative for pertinent findings except as documented above in the HPI. - Constitutional Vitals: Temp Pulse Resp BP Pulse Ox 98.1 F 98 16 115/70 98 10/30/17 16:00 10/30/17 16:00 10/30/17 16:00 10/30/17 16:00 10/30/17 16:00 General appearance: Present: A&O X 3, no acute distress - Head Head exam: Present: atraumatic, normocephalic - Eye Eye exam: Present: PERRL, conjuntiva pink, sclera anicteric Pupils: Present: PERRL - Neck Neck exam general surgery: Present: supple, trachea midline. Absent: lymphadenopathy - Respiratory Respiratory exam: Present: decreased breath sounds, rhonchi. Absent: accessory muscle use, CTAB, rales, wheezes Additional comments: crackles in bases bilaterally. Rhonchi RLL - Cardiovascular Cardiovascular exam: Present: RRR, +S1, +S2. Absent: diastolic murmur, gallop, rubs, systolic murmur - GI/Abdominal GI/Abdominal exam: Present: normal bowel sounds, soft, no peritoneal signs. Absent: distended, tenderness - Extremities Exam Extremities exam: Present: warm, radial pulses palpable and symmetrical. Absent : calf tenderness, cyanotic, pedal edema - Neurological Exam Neurological exam: Present: CN II-XII intact, oriented X3, no focal deficits. Absent: pronater drift, facial droop, speech deficit - Skin Skin exam: Present: dry, intact Internal Med - H&P Results - Labs CBC & Chem 7: 10/30/17 11:59 10/30/17 11:59 - Assessment and plan (1) Acute exacerbation of chronic obstructive airways disease Current Visit: No Status: Acute Assessment and plan: nebs, steroid, and oxygen. (2) Chronic respiratory failure with hypoxia Current Visit: No Status: Chronic Assessment and plan: Continue home respiratory oxygen at 4LNC. Will monitor pulse ox. (3) Tachycardia Current Visit: No Status: Resolved Assessment and plan: Will monitor on tele. Will consider cardiology consult in am. (4) Chest pain Current Visit: Yes Status: Acute Assessment and plan: will cylce troponin. ASA daily and Nitro SL. Oxygen Qualifiers: Chest pain type: other chest pain Qualified Code(s): R07.89 - Other chest pain; R07.8 - Other chest pain (5) Pulmonary embolism Current Visit: No Status: Chronic Assessment and plan: Pt is on Xarelto Qualifiers: Pulmonary embolism type: other Chronicity: acute Acute cor pulmonale presence: without acute cor pulmonale Qualified Code(s): I26.99 - Other pulmonary embolism without acute cor pulmonale - Time Spent With Patient Total time spent is greater than 50% in coordination of care (as documented) at patient's floor/unit and/or counseling patient: 25 - 35 minutes
[2017-10-30] MEDS ORDERED: MethylPREDNISolone 40 MG/ML VIAL IVP SCH (18:00)
[2017-10-30] MEDS ORDERED: Ipratropium/Albuterol Neb 3 ML IH PRN (20:00)
[2017-10-30] MEDS: Furosemide 40 MG TABLET PO SCH (20:13)
--- NOTE | 2017-10-30 21:15 | Electrocardiograph Report ---
[employer] Test Date: 2017-10-30 Pat Name: Jason Blanchard Department: 103 Room: 3B36 Gender: M Communication Coordinator: SREEDHAR : 1960 Requested By: Jerome Dos Santos Order Number: [id number] Reading MD: Baudilio Lincoln Measurements Intervals [place] Rate: 107 P: 61 NH: 155 QRS: 6 QRSD: 93 T: 45 QT: 341 QTc: 403 Interpretive Statements SINUS TACHYCARDIA ABNORMAL RHYTHM ECG Electronically Signed On 10-30-2017 21:14:06 EDT by Baudilio Lincoln
[2017-10-30] MEDS: Ipratropium/Albuterol Neb 3 ML IH SCH (21:40)
[2017-10-30] MEDS: Budesonide Neb 0.5 MG/2 ML IH SCH (21:40)
[2017-10-31] MEDS: Ipratropium/Albuterol Neb 3 ML IH SCH ×2 (03:57→10:06)
[2017-10-31 06:54] VITALS: BP 106/68
[2017-10-31] MEDS ORDERED: (Roflumilast [Daliresp] 500 MCG) PO SCH (09:00)
[2017-10-31] MEDS ORDERED: Aspirin 81 MG TAB.CHEW PO SCH (09:00)
[2017-10-31] MEDS ORDERED: predniSONE 20 MG TABLET PO SCH (09:00)
[2017-10-31] MEDS ORDERED: Azithromycin 250 MG TABLET PO SCH (09:00)
[2017-10-31] MEDS ORDERED: *HR* Rivaroxaban 10 MG TABLET PO SCH (09:00)
[2017-10-31] MEDS: Furosemide 40 MG TABLET PO SCH ×2 (09:11→12:14)
[2017-10-31] MEDS: Budesonide Neb 0.5 MG/2 ML IH SCH (10:06)
--- NOTE | 2017-10-31 15:48 | Discharge Summary ---
- NOTES TO OUTPATIENT PROVIDER Notes to Outpatient Provider: PCP in 5 to 7 days/as soon as possible Orders not resulted at time of discharge: Mr. Blanchard is a 57 year old male with past medical history of COPD, chronic respiratory failure on 4L NC or oxygen, former smoker, and Hx PE. Date of Encounter: 10/31/17 Time of Encounter: 15:46 - Discharge Diagnosis (1) Acute exacerbation of chronic obstructive airways disease Priority: Primary Status: Acute Assessment and Plan: Pt was placed on nebs, steroids, and oxygen. Notified by nurse that pt signing out AMA. Pt stated he was feeling better and refused to stay to complete is treatment. Pt had left by the time I arrived to the floor. (2) Chronic respiratory failure with hypoxia Priority: Secondary Status: Chronic Assessment and Plan: Resume home oxygen 4L NC (3) Tachycardia Priority: Secondary Status: Resolved Assessment and Plan: Resolved following improvement of respiratory issues. (4) Chest pain Priority: Secondary Status: Acute Assessment and Plan: Troponin negative times 2. Pt left AMA Qualifiers: Chest pain type: other chest pain Qualified Code(s): R07.89 - Other chest pain; R07.8 - Other chest pain (5) Pulmonary embolism Priority: Secondary Status: Chronic Assessment and Plan: On Xarelto Qualifiers: Pulmonary embolism type: other Chronicity: acute Acute cor pulmonale presence: without acute cor pulmonale Qualified Code(s): I26.99 - Other pulmonary embolism without acute cor pulmonale (6) Medical non-compliance Priority: Secondary Status: Acute Assessment and Plan: Pt left against medical advise. Hospital course: Mr. Blanchard is a 57 year old male with past medical history of COPD, chronic respiratory failure on 4L NC or oxygen, former smoker, and Hx PE. Pt was discharged yesterday following management of COPD. He was discharged on steroid taper and antibiotic. Pt was readmitted 10/30/2017 Stated he woke up tachycardic and his HR was 160's. Reports association with CP and SOB. States he took a neb treatment checked his HR an hour later and it was in the 140's. He was managed for COPD exac but then left AMA this morning 10/31/2017. Pt stated to nurses he was feeling better and did not want to stay. Discharge discussed with: other (Pt left AMA) - Time Spent with Patient Total time spent providing and/or coordinating discharge services: Less than 30 minutes - Discharge Medications Home Medications: Docusate [Colace] 100 mg PO BID 07/25/17 [History] Ipratropium/Albuterol Neb [Duoneb] 3 ml IH Q4H PRN 07/25/17 [History] Oxygen 4 l NS AD 07/25/17 [History] Roflumilast [Daliresp] 500 mcg PO DAILY 07/25/17 [History] Metoprolol [Lopressor] 25 mg PO BID 09/10/17 [History] Acetaminophen [Tylenol] 650 mg PO Q6HR PRN tablet 09/20/17 [Rx] Albuterol Sulfate [Albuterol Inhaler] 2 puff IH Q4H PRN #1 inhaler 09/20/17 [Rx] Budesonide Neb [Pulmicort Neb] 0.5 mg IH BID #1 inhsol 09/20/17 [Rx] Furosemide [Lasix] 40 mg PO TID #90 tab 09/20/17 [Rx] Mometasone/Formoterol [Dulera 200 Mcg/5 Mcg Inhaler] 2 puff IH BID #1 hfa.aer.ad 09/20/17 [Rx] Rivaroxaban [Xarelto] 20 mg PO DAILY #60 tablet 09/20/17 [Rx] Tiotropium [place] [Spiriva Respimat] 2 puff IH DAILY #1 mist.inhal 09/20/17 [Rx ] Umeclidinium [place] [Incruse Ellipta] 62.5 mcg IH DAILY #1 blst.w.dev 09/20/17 [Rx] Omeprazole [PriLOSEC] 20 mg PO 0730 09/30/17 [History] Azithromycin 250 mg PO DAILY 3 Days #3 tablet 10/28/17 [Rx] predniSONE [PredniSONE] 40 mg PO DAILY 3 Days #3 tablet 10/28/17 [Rx] Allergies/Adverse Reactions: 3 Allergy/AdvReac Type Severity Reaction Status Date / Time levofloxacin AdvReac Blurry Verified 10/26/17 22:20 [facility] Date of admission: 10/30/17 14:31 Primary care physician: Marilyn Rojas CNP Consults: 10/30/17 17:31 Consult to Nurse Navigator [CONS] Routine Comment: - Constitutional Vitals: Temp Pulse Resp BP Pulse Ox 97.9 F 77 16 106/68 96 10/31/17 06:53 10/31/17 06:53 10/31/17 10:06 10/31/17 06:53 10/31/17 10:06 General appearance: Present: A&O X 3, no acute distress - Patient Status Disposition: Left Against Medical Advice - Discharge Instructions Follow Up With: Marilyn Rojas FELLER MACHINE OPERATOR [Primary Care Provider] -
== END 2017-10-31 13:25 | disposition left against medical advice (07) ==
LOC: EMEROO 11:31 → 3BNU 11:31
PROVIDERS: ADMIT Internal Medicine; ATTEND Internal Medicine Cardiovascular Disease

== ENCOUNTER 2017-11-06 09:35 | Inpatient (IN) ==
[2017-11-06] MEDS ORDERED: methylPREDNISolone 125 MG/2 ML VIAL IVP ONE (09:58)
[2017-11-06] MEDS ORDERED: Ipratropium/Albuterol Neb 3 ML IH ONE (09:59)
--- NOTE | 2017-11-06 10:01 | Emergency Department Note ---
Disposition Clinical Impression: COPD exacerbation Left lower lobe pneumonia Qualifiers: Pneumonia type: due to unspecified organism Qualified Code(s): J18.1 - Lobar pneumonia, unspecified organism Community acquired pneumonia Qualifiers: Laterality: left Lung location: lower lobe of lung Qualified Code(s): J18.1 - Lobar pneumonia, unspecified organism Disposition: Admitted As Inpatient Condition: Fair Referrals: Marilyn Rojas [employer]ECTIVE [employer]IEF [Primary Care Provider] - Forms: ED Satisfaction Letter Time of Disposition: 11:33 SOB HPI - General Chief Complaint: ED Shortness of Breath/Dyspnea Stated Complaint: PHYLLIS Time Seen by Provider: 11/06/17 09:45 Source: patient Mode of arrival: ambulatory Limitations: no limitations Nursing Notes Reviewed: Yes Vital Signs Reviewed: Yes - History of Present Illness 57-year-old male with a history of COPD presents emergency room for cough, shortness of breath and chest pain. Onset yesterday. Long history of COPD. Wears chronic home oxygen. No active smoking anymore. Admits to thick sputum production. No documented fevers. Intermittent chest pain located in the substernal region. History of PE diagnosed a few months ago. He is on blood thinners for this. No lower leg pain or swelling that is new. Symptoms are worse with activity. Better at rest. - Related Data Home Medications Medication Instructions Recorded Confirmed Docusate [Colace] 100 mg PO BID 07/25/17 10/30/17 Ipratropium/Albuterol Neb [Duoneb] 3 ml IH Q4H PRN 07/25/17 10/30/17 Oxygen 4 l NS AD 07/25/17 10/30/17 Roflumilast [Daliresp] 500 mcg PO DAILY 07/25/17 10/30/17 Metoprolol [Lopressor] 25 mg PO BID 09/10/17 10/30/17 Omeprazole [PriLOSEC] 20 mg PO 0730 09/30/17 10/30/17 Previous Rx's Medication Instructions Recorded Acetaminophen [Tylenol] 650 mg PO Q6HR PRN tablet 09/20/17 Albuterol Sulfate [Albuterol 2 puff IH Q4H PRN #1 inhaler 09/20/17 Inhaler] Budesonide Neb [Pulmicort Neb] 0.5 mg IH BID #1 inhsol 05/02/18 Furosemide [Lasix] 40 mg PO TID #90 tab 09/20/17 Mometasone/Formoterol [Dulera 200 2 puff IH BID #1 hfa.aer.ad 09/20/17 Mcg/5 Mcg Inhaler] Rivaroxaban [Xarelto] 20 mg PO DAILY #60 tablet 09/20/17 Tiotropium [place] [Spiriva 2 puff IH DAILY #1 mist.inhal 09/20/17 Respimat] Umeclidinium [place] [Incruse 62.5 mcg IH DAILY #1 blst.w.dev 09/20/17 Ellipta] Azithromycin 250 mg PO DAILY 3 Days #3 tablet 10/28/17 predniSONE [PredniSONE] 40 mg PO DAILY 3 Days #3 tablet 10/28/17 Allergies Allergy/AdvReac Type Severity Reaction Status Date / Time levofloxacin AdvReac Blurry Verified 10/26/17 22:20 [facility] ED: reviewed and negative except as stated. Constitutional: Denies: fever, chills Eyes: Reports: as per HPI ENT ED: Reports: as per HPI Cardiovascular: Reports: chest pain Respiratory: Reports: cough, dyspnea, wheezes Gastrointestinal: Reports: as per HPI Genitourinary: Reports: as per HPI Musculoskeletal: Reports: as per HPI Integumentary: Reports: as per HPI Neurological: Reports: as per HPI Psychiatric: Reports: as per HPI Endocrine: Reports: as per HPI Hematological/Lymphatic: Reports: as per HPI Past Medical History - Past Medical History Medical history: Reports: asthma, COPD Psychiatric history: Reports: no psych history - Social History Smoking Status: Former smoker Smokeless Tobacco Status: No Alcohol use: Reports: none Drug use: Reports: marijuana Physical Exam - General Limitations: no limitations General appearance: alert, in no apparent distress - Head Head exam: atraumatic, normocephalic - Eye Eye exam: Present: normal appearance - Neck Neck exam: Present: normal inspection - Chest Chest inspection: Present: normal inspection - Respiratory Respiratory exam: Present: wheezes (Diffuse wheezes heard throughout.), other ( Bilateral rhonchi.) - Cardiovascular Cardiovascular exam: Present: normal rhythm, tachycardia - Abdominal Exam Abdominal exam: Present: soft, Non-Tender, normal bowel sounds - Extremities Exam Extremities exam: Present: normal inspection - Expanded Lower Extremity Exam Hip/Pelvis exam: Present: normal inspection - Neurological Exam Neurological exam: Present: alert, oriented X3 - Psychiatric Psychiatric exam: Present: normal affect, normal mood - Skin Skin exam: Present: warm, dry, intact Course Vital Signs Temperature 98.2 F 11/06/17 09:38 Pulse Rate 140 11/06/17 09:38 Respiratory Rate 28 11/06/17 09:38 Blood Pressure 133/85 11/06/17 09:38 O2 Sat by Pulse Oximetry 93 11/06/17 09:38 Temperature 98.2 F 11/06/17 09:43 Pulse Rate 140 11/06/17 09:43 Respiratory Rate 21 11/06/17 10:17 Blood Pressure 133/85 11/06/17 09:43 O2 Sat by Pulse Oximetry 94 11/06/17 10:17 Oxygen Delivery Oxygen Delivery Nasal Cannula Shortness of Breath/Dyspnea - Medical Records Medical records reviewed: Yes I reviewed the patient's medical records. - Lab Data Lab results reviewed: Yes I reviewed the patient's lab results. Result diagrams: 11/06/17 10:08 11/06/17 10:08 Lab Results 11/06/17 11/06/17 11/06/17 Range/Units 10:08 10:08 10:08 WBC 14.2 H D (4.3-11.1) K/mcL RBC 3.82 L (4.19-5.50) M/mcL Hgb 11.3 L (12.9-16.9) g/dL Hct 34.3 L (37.5-50.1) % MCV 89.8 (83.0-100.0) fL MCH 29.6 (28.0-33.3) pg MCHC 32.9 (31.6-35.5) g/dL RDW 15.1 H (11.5-14.5) % Plt Count 285 (140-400) K/mcL MPV 9.3 L (9.4-12.4) fL Immature Gran % 0.4 (0-4) % Seg Neutrophils % 85.7 % Lymphocytes % 8.3 % Monocytes % 4.0 % Eosinophils % 1.5 % Basophils % 0.1 % Neutrophils # 12.2 H (1.6-8.9) K/mcL Lymphocytes # 1.2 (0.6-4.6) K/mcL Monocytes # 0.6 (0.0-1.3) K/mcL Eosinophils # 0.2 (0.0-0.6) K/mcL Basophils # 0.0 (0.0-0.2) K/mcL PT 21.1 H (9.4-12.1) Seconds INR 1.9 APTT 35.6 (26.0-36.0) Seconds Sodium 134 L (136-145) mEq/L Potassium 3.4 L (3.5-5.1) mEq/L Chloride 94 L (98-107) mEq/L Carbon Dioxide 33 H (23-29) mEq/L BUN 19 (6-20) mg/dL Creatinine 0.49 L (0.70-1.30) mg/dL Est GFR ( Amer) > 60 (> 60) Est GFR (Non-Af Amer) > 60 (> 60) BUN/Creatinine Ratio 39 H (6-26) Glucose 91 (70-105) mg/dL Calculated Osmolality 280 (280-300) Calcium 9.4 (8.6-10.3) mg/dL Troponin I < 0.03 (< 0.04) ng/mL - Radiology Data Radiology results reviewed: Yes I reviewed the patient's radiology results. - EKG Data EKG attestation: Yes I reviewed and interpreted this EKG. EKG results narrative: EKG shows a rate of 140. Intervals were not obtainable secondary to a poor quality EKG. However, I do not appreciate any acute ischemia. The intervals from gross appearance appear unremarkable. There is some borderline underlying artifact secondary to his breathing.
[2017-11-06 10:19] LABS: Basophils % 0.1 %; Eosinophils # 0.2 K/mcL (0.0-0.6); Eosinophils % 1.5 %; Hematocrit 34.3 % (37.5-50.1); Hemoglobin 11.3 g/dL (12.9-16.9); Immature Granulocytes % 0.4 % (0-4); Lymphocytes # 1.2 K/mcL (0.6-4.6); Lymphocytes % 8.3 %; Mean Corpuscular HGB Conc 32.9 g/dL (31.6-35.5); Mean Corpuscular Hemoglobin 29.6 pg (28.0-33.3); Mean Corpuscular Volume 89.8 fL (83.0-100.0); Mean Platelet Volume 9.3 fL (9.4-12.4); Monocytes # 0.6 K/mcL (0.0-1.3); Neutrophils # 12.2 K/mcL (1.6-8.9); Platelet Count 285 K/mcL (140-400); Red Blood Count 3.82 M/mcL (4.19-5.50); Red Cell Distribution Width 15.1 % (11.5-14.5); Segmented Neutrophils % 85.7 %
[2017-11-06 10:25] LABS: INR 1.9; Prothrombin Time 21.1 Seconds (9.4-12.1)
[2017-11-06 10:28] LABS: Activated Partial Thrombo Time 35.6 Seconds (26.0-36.0)
[2017-11-06] MEDS ORDERED: cefTRIAXone 1,000 MG in Water for inj. (sterile) 20 ML 10 ML IVP ONE (10:39)
[2017-11-06] MEDS ORDERED: Azithromycin 500 MG in D5% in Water 250 ML IVPB ONE (10:39)
[2017-11-06 10:44] LABS: BUN/Creatinine Ratio 39 (6-26); Blood Urea Nitrogen 19 mg/dL (6-20); Calcium 9.4 mg/dL (8.6-10.3); Carbon Dioxide 33 mEq/L (23-29); Chloride 94 mEq/L (98-107); Glucose 91 mg/dL (70-105); Osmolality,Calculated 280 (280-300); Potassium 3.4 mEq/L (3.5-5.1); Sodium 134 mEq/L (136-145); eGFR For African Americans > 60 (> 60); eGFR For Non-African Americans > 60 (> 60)
[2017-11-06 10:45] LABS: Troponin I < 0.03 ng/mL (< 0.04)
[2017-11-06] MEDS ORDERED: 0.9 % Sodium Chloride 1,000 ML IVC ONE (10:52)
[2017-11-06] MEDS ORDERED: Albuterol 2.5 MG/3 ML NEBULIZER IH PRN (11:28)
[2017-11-06] MEDS ORDERED: Naloxone 0.4 MG/ML INJ IVP PRN (11:37)
[2017-11-06] MEDS ORDERED: Acetaminophen 325 MG TABLET PO PRN (11:37)
[2017-11-06] MEDS ORDERED: *HR* Enoxaparin 40 MG/0.4 ML SYRINGE SQ SCH (11:45)
[2017-11-06] MEDS ORDERED: Budesonide Neb 0.5 MG/2 ML IH SCH (11:45)
[2017-11-06] MEDS ORDERED: Budesonide Neb 0.5 MG/2 ML IH ONE (12:19)
[2017-11-06] MEDS: Acetylcysteine 10% 2 ML INHSOL IH SCH ×3 (12:36→22:34)
[2017-11-06] MEDS: Budesonide/Formoterol 160/4.5 MDI IH SCH ×2 (13:48→22:34)
[2017-11-06] MEDS: (Tiotropium Bromide [Spiriva Respimat] 2 PUFF) IH SCH (13:55)
[2017-11-06] MEDS: (Roflumilast [Daliresp] 500 MCG) PO SCH (13:55)
[2017-11-06] MEDS: (Umeclidinium Bromide [Incruse Ellipta] 62.5 MCG) IH SCH (13:56)
[2017-11-06] MEDS: *HR* Rivaroxaban 10 MG TABLET PO SCH (14:08)
[2017-11-06] MEDS: Loratadine 10 MG TABLET PO SCH (14:09)
[2017-11-06] MEDS: Furosemide 40 MG TABLET PO SCH ×2 (14:09→21:31)
--- NOTE | 2017-11-06 14:46 | Internal Med History&Physical ---
Date of Encounter: 11/06/17 Time of Encounter: 11:57 Internal Medicine - H&P: HPI Chief complaint: "Short of breath" Admitted From: Emergency Dept Plans for Post Hospital Care: Home History of present illness: Mr. Blanchard is a 57 year old male with PMH of COPD and chronic respiratory failure on home supplemental O2 who presented to ED for worsening shortness of breath. He states that SOB started yesterday and has progressively worsened. He is on 2-3L NC at home continuously. He takes multiple inhalers for his longstanding COPD. He has cough with thick sputum production. He denies fever , chills, chest pain, abdominal pain, changes in bladder, and changes in bowel. He has had some nausea and vomiting after arrival to ED. He states that he was diagnosed with pulmonary embolism a few months ago and is currently on rivaroxaban. In the ED, chest x-ray showed increasing patchy left basilar opacities, concerning for developing pneumonia. WBC was elevated to 14.2. Borderline low potassium of 3.4. He received 1L NS bolus, IV azithromycin, IV rocephin, and IV solumedrol in ED. At this time, patient states that SOB is improved. He is on home 3L NC. He is in no visible distress at this time. Patient has no other complaints at this time. Past Med Surg Social Fam HX - Past Medical History Attestation: Yes The following information was validated with the patient. Source: patient Medical history: asthma, COPD, hypertension, pulmonary embolus Psychiatric history: no psych history - Past Surgical History Surgical History: no surgical history - Social History Smoking Status: Former smoker Smokeless Tobacco Status: No Alcohol use: none Drug use: marijuana - Family History Father Living Status: Hx Family Cancer: Yes (colon) - Additional Family History Additional family history: Family history reviewed with patient. Internal Medicine - H&P: Meds Docusate [Colace] 100 mg PO BID 07/25/17 [History] Ipratropium/Albuterol Neb [Duoneb] 3 ml IH Q4H PRN 07/25/17 [History] Oxygen 4 l NS AD 07/25/17 [History] Roflumilast [Daliresp] 500 mcg PO DAILY 07/25/17 [History] Metoprolol [Lopressor] 25 mg PO BID 09/10/17 [History] Acetaminophen [Tylenol] 650 mg PO Q6HR PRN tablet 09/20/17 [Rx] Albuterol Sulfate [Albuterol Inhaler] 2 puff IH Q4H PRN #1 inhaler 09/20/17 [Rx] Budesonide Neb [Pulmicort Neb] 0.5 mg IH BID #1 inhsol 09/20/17 [Rx] Furosemide [Lasix] 40 mg PO TID #90 tab 09/20/17 [Rx] Mometasone/Formoterol [Dulera 200 Mcg/5 Mcg Inhaler] 2 puff IH BID #1 hfa.aer.ad 09/20/17 [Rx] Rivaroxaban [Xarelto] 20 mg PO DAILY #60 tablet 09/20/17 [Rx] Tiotropium [place] [Spiriva Respimat] 2 puff IH DAILY #1 mist.inhal 09/20/17 [Rx ] Umeclidinium [place] [Incruse Ellipta] 62.5 mcg IH DAILY #1 blst.w.dev 09/20/17 [Rx] Omeprazole [PriLOSEC] 20 mg PO 0730 09/30/17 [History] predniSONE [PredniSONE] 40 mg PO DAILY 3 Days #3 tablet 10/28/17 [Rx] 3 Allergy/AdvReac Type Severity Reaction Status Date / Time levofloxacin AdvReac Blurry Verified 11/06/17 11:39 [facility] PM: A 10-system review of systems was performed and is negative for pertinent findings except as documented above in the HPI. - Constitutional Vitals: Temp Pulse Resp BP Pulse Ox 98 F 101 20 130/85 95 11/06/17 12:25 11/06/17 12:25 11/06/17 13:53 11/06/17 12:25 11/06/17 13:53 General appearance: Present: cooperative, A&O X 3, pleasant, no acute distress, answers questions appropriately - Head Head exam: Present: atraumatic, normal inspection, normocephalic - Eye Eye exam: Present: EOMI, PERRL. Absent: conjunctival injection, nystagmus, scleral icterus - ENT ENT exam: Present: mucous membranes moist, normal external ear exam, normal oropharynx - Neck Neck exam general surgery: Present: supple, trachea midline. Absent: lymphadenopathy, tenderness, thyromegaly - Respiratory Respiratory exam: Absent: accessory muscle use, rales, rhonchi Additional comments: Mildly labored WOB, coarse breath sounds bilaterally with intermittent expiratory wheeze - Cardiovascular Cardiovascular exam: Present: RRR, +S1, +S2. Absent: diastolic murmur, gallop, rubs, systolic murmur Additional comments: No BLE edema - GI/Abdominal GI/Abdominal exam: Present: normal bowel sounds, soft. Absent: distended, hepatomegaly, mass, splenomegaly, tenderness - Neurological Exam Neurological exam: Present: alert, CN II-XII intact, oriented X3, no focal deficits, strengths equal and symetr throughout. Absent: motor sensory deficit , facial droop, speech deficit - Psychiatric Psychiatric exam: Present: normal affect, normal mood. Absent: agitated, anxious, depressed - Skin Skin exam: Present: dry, intact, warm. Absent: cyanosis, rash Internal Med - H&P Results - Labs CBC & Chem 7: 11/06/17 10:08 11/06/17 10:08 - VTE Documentation of Mechanical Device: Intermittent pneumatic compression device Contraindication No Overlap Therapy: Admin of oral Factor Xa Inhibitor - Assessment and plan (1) Community acquired pneumonia Current Visit: Yes Status: Acute Assessment and plan: Continue rocephin and azithromycin. Respiratory support as per below. Qualifiers: Laterality: left Lung location: lower lobe of lung Qualified Code(s): J18.1 - Lobar pneumonia, unspecified organism (2) Left lower lobe pneumonia Current Visit: Yes Status: Acute Assessment and plan: Management as per above. Qualifiers: Pneumonia type: due to unspecified organism Qualified Code(s): J18.1 - Lobar pneumonia, unspecified organism (3) Acute exacerbation of chronic obstructive airways disease Current Visit: Yes Status: Acute Assessment and plan: Continue IV solumedrol; taper with improvement. Continue schedule duonebs Q6H and albuterol nebs Q4H PRN SOB. Start claritin and mucinex. Continue inhaled mucomyst and chest PT Q6H. Turn, cough, deep breathe. Incentive spirometer. Up to chair TID with assistance. RT consulted. Wean to home supplemental O2 as tolerated. Treat pneumonia as per above. (4) Chronic respiratory failure with hypoxia Current Visit: Yes Status: Chronic Assessment and plan: Continue home supplemental O2 2-3 by NC. (5) Hypokalemia Current Visit: Yes Status: Acute Assessment and plan: Give potassium chloride 20 mEq PO once. Recheck BMP in AM. (6) Essential hypertension Current Visit: Yes Status: Chronic Assessment and plan: Continue home medications. (7) History of pulmonary embolism Current Visit: Yes Status: Chronic Assessment and plan: Continue home xarelto. (8) GERD (gastroesophageal reflux disease) Current Visit: Yes Status: Chronic Assessment and plan: Continue home medications. Qualifiers: Esophagitis presence: without esophagitis Qualified Code(s): K21.9 - Gastro -esophageal reflux disease without esophagitis (9) DVT prophylaxis Current Visit: Yes Status: Acute Assessment and plan: Continue home xarelto and start SCDs. - Time Spent With Patient Total time spent is greater than 50% in coordination of care (as documented) at patient's floor/unit and/or counseling patient: less than 15 minutes
[2017-11-06] MEDS: Ipratropium/Albuterol Neb 3 ML IH SCH ×2 (15:59→22:33)
[2017-11-06] MEDS: 0.9 % Sodium Chloride 1,000 ML IVC SCH (17:06)
[2017-11-06] MEDS: MethylPREDNISolone 40 MG/ML VIAL IVP SCH (17:20)
--- NOTE | 2017-11-06 18:51 | Electrocardiograph Report ---
[address] [place] [address] Test Date: 2017-11-06 Pat Name: Jason Blanchard Department: 104 Room: 3B Gender: M Audit Manager: NICHOLAS : 1960 Requested By: Marcel Costello Order Number: [id number] Reading MD: Piyush Ferreira Measurements Intervals [place] Rate: 0 P: IN: 0 QRS: 0 QRSD: 0 T: 0 QT: 0 QTc: 0 Interpretive Statements SINUS RHYTHM W PVC Electronically Signed On 11-06-2017 18:49:37 EDT by Piyush Ferreira
[2017-11-07] MEDS: MethylPREDNISolone 40 MG/ML VIAL IVP SCH ×4 (01:09→20:44)
[2017-11-07] MEDS: Acetylcysteine 10% 2 ML INHSOL IH SCH ×4 (03:57→23:10)
[2017-11-07] MEDS: Ipratropium/Albuterol Neb 3 ML IH SCH ×4 (03:57→23:10)
[2017-11-07 04:52] LABS: Hematocrit 32.7 % (37.5-50.1); Hemoglobin 10.6 g/dL (12.9-16.9); Immature Granulocytes % 0.3 % (0-4); Lymphocytes # 0.7 K/mcL (0.6-4.6); Lymphocytes % 7.6 %; Mean Corpuscular HGB Conc 32.4 g/dL (31.6-35.5); Mean Corpuscular Hemoglobin 29.3 pg (28.0-33.3); Mean Corpuscular Volume 90.3 fL (83.0-100.0); Mean Platelet Volume 9.4 fL (9.4-12.4); Monocytes # 0.1 K/mcL (0.0-1.3); Neutrophils # 8.8 K/mcL (1.6-8.9); Platelet Count 294 K/mcL (140-400); Red Blood Count 3.62 M/mcL (4.19-5.50); Red Cell Distribution Width 14.9 % (11.5-14.5); Segmented Neutrophils % 91.1 %
[2017-11-07 05:11] LABS: BUN/Creatinine Ratio 26 (6-26); Blood Urea Nitrogen 13 mg/dL (6-20); Calcium 9.2 mg/dL (8.6-10.3); Carbon Dioxide 32 mEq/L (23-29); Chloride 98 mEq/L (98-107); Glucose 158 mg/dL (70-105); Osmolality,Calculated 283 (280-300); Potassium 3.9 mEq/L (3.5-5.1); Sodium 135 mEq/L (136-145); eGFR For African Americans > 60 (> 60); eGFR For Non-African Americans > 60 (> 60)
[2017-11-07] MEDS: 0.9 % Sodium Chloride 1,000 ML IVC SCH (06:40)
[2017-11-07] MEDS: (Umeclidinium Bromide [Incruse Ellipta] 62.5 MCG) IH SCH (07:58)
[2017-11-07] MEDS: (Tiotropium Bromide [Spiriva Respimat] 2 PUFF) IH SCH (07:58)
[2017-11-07] MEDS: (Roflumilast [Daliresp] 500 MCG) PO SCH (07:58)
[2017-11-07] MEDS: Loratadine 10 MG TABLET PO SCH (08:34)
[2017-11-07] MEDS: Furosemide 40 MG TABLET PO SCH ×3 (08:34→20:44)
[2017-11-07] MEDS: *HR* Rivaroxaban 10 MG TABLET PO SCH (08:34)
[2017-11-07] MEDS ORDERED: cefTRIAXone 1,000 MG in 0.9 % Sodium Chloride Mini Bag 100 ML IVPB SCH (10:00)
[2017-11-07] MEDS: Budesonide/Formoterol 160/4.5 MDI IH SCH ×2 (10:33→23:09)
[2017-11-07] MEDS: Azithromycin 500 MG in D5% in Water 250 ML IVPB SCH (10:38)
[2017-11-07] MEDS: cefTRIAXone 1,000 MG in Water for inj. (sterile) 20 ML 10 ML IVP SCH (10:39)
--- NOTE | 2017-11-07 10:46 | Internal Med Progress Note ---
Date of Encounter: 11/07/17 Time of Encounter: 10:43 - Assessment and plan (1) Community acquired pneumonia Current Visit: Yes Status: Acute Assessment and plan: Continue rocephin and azithromycin. Respiratory support as per below. Qualifiers: Laterality: left Lung location: lower lobe of lung Qualified Code(s): J18.1 - Lobar pneumonia, unspecified organism (2) Left lower lobe pneumonia Current Visit: Yes Status: Acute Assessment and plan: Integument bronchodilators as well as steroids continue Mucomyst as well as azithromycin and Rocephin, chest PT every 6 up in chair wean to home oxygen- presently on 3 L-he is on 2.5-3 at home Qualifiers: Pneumonia type: due to unspecified organism Qualified Code(s): J18.1 - Lobar pneumonia, unspecified organism (3) Acute exacerbation of chronic obstructive airways disease Current Visit: Yes Status: Acute Assessment and plan: Has some faint wheezes we will taper Solu-Medrol continue with dual meds continue with Claritin and Mucinex. Continue with Mucomyst and chest PT every 6 hours incentive spirometry encouraged up to chair 3 times a day presently on home oxygen (4) Chronic respiratory failure with hypoxia Current Visit: Yes Status: Chronic Assessment and plan: Most likely secondary to COPD and pneumonia continue with oxygen titrating to maintain SPO2 greater than 90% (5) DVT prophylaxis Current Visit: Yes Status: Acute Assessment and plan: Continue home xarelto and start SCDs. (6) Essential hypertension Current Visit: Yes Status: Chronic Assessment and plan: Presently controlled we will continue with home medications. (7) History of pulmonary embolism Current Visit: Yes Status: Chronic Assessment and plan: Continue home xarelto. (8) Hypokalemia Current Visit: Yes Status: Acute Assessment and plan: Resolved continue to monitor (9) GERD (gastroesophageal reflux disease) Current Visit: Yes Status: Chronic Assessment and plan: Continue home medications. Qualifiers: Esophagitis presence: without esophagitis Qualified Code(s): K21.9 - Gastro -esophageal reflux disease without esophagitis - Time Spent With Patient Total time spent is greater than 50% in coordination of care (as documented) at patient's floor/unit and/or counseling patient: - Subjective Interval history: Patient seen and examined at bedside. States that he feels better.He is now at his baseline oxygen, denies any fever or chills. - Constitutional Vitals: Temp Pulse Resp BP Pulse Ox 97.8 F 73 17 108/57 93 11/07/17 07:12 11/07/17 07:12 11/07/17 10:34 11/07/17 07:12 11/07/17 10:34 General appearance: Present: cooperative, A&O X 3, pleasant, no acute distress, answers questions appropriately - Head Head exam: Present: atraumatic, normocephalic - Eye Eye exam: Present: PERRL, conjuntiva pink, sclera anicteric Pupils: Present: PERRL - Neck Neck exam general surgery: Present: supple, trachea midline. Absent: lymphadenopathy - Respiratory Respiratory exam: Present: rales, wheezes. Absent: accessory muscle use, rhonchi - Cardiovascular Cardiovascular exam: Present: RRR, +S1, +S2. Absent: diastolic murmur, gallop, rubs, systolic murmur - GI/Abdominal GI/Abdominal exam: Present: normal bowel sounds, soft, no peritoneal signs. Absent: distended, tenderness - Extremities Exam Extremities exam: Present: warm, radial pulses palpable and symmetrical. Absent : calf tenderness, cyanotic, pedal edema - Neurological Exam Neurological exam: Present: CN II-XII intact, oriented X3, no focal deficits. Absent: pronater drift, facial droop, speech deficit - Skin Skin exam: Present: dry, intact Internal Medicine: Result - Labs CBC & Chem 7: 11/07/17 04:42 11/07/17 04:42 Labs: Short CBC 11/07/17 Range/Units 04:42 WBC 9.6 (4.3-11.1) K/mcL Hgb 10.6 L (12.9-16.9) g/dL Hct 32.7 L (37.5-50.1) % Plt Count 294 (140-400) K/mcL Neutrophils # 8.8 (1.6-8.9) K/mcL BMP 11/07/17 04:42 Sodium 135 L Potassium 3.9 Chloride 98 Carbon Dioxide 32 H BUN 13 Creatinine 0.50 L Glucose 158 H Calcium 9.2 - ABG Interpretation ABG results: PT/INR, D-dimer PT 21.1 Seconds (9.4-12.1) H 11/06/17 10:08 - VTE Documentation of Mechanical Device: Intermittent pneumatic compression device Contraindication No Overlap Therapy: Admin of oral Factor Xa Inhibitor Consult Discharge Plan - Plan Referrals: Marilyn Rojas CNP [Primary Care Provider] -
[2017-11-08] MEDS: Ipratropium/Albuterol Neb 3 ML IH SCH ×4 (03:43→22:32)
[2017-11-08] MEDS: Acetylcysteine 10% 2 ML INHSOL IH SCH ×4 (03:43→22:32)
[2017-11-08] MEDS: MethylPREDNISolone 40 MG/ML VIAL IVP SCH ×2 (05:03→17:30)
[2017-11-08 05:28] LABS: Hemoglobin 10.6 g/dL (12.9-16.9); Immature Granulocytes % 0.4 % (0-4); Immature Platelets 2.5 % (1.1-6.1); Lymphocytes # 0.8 K/mcL (0.6-4.6); Lymphocytes % 8.6 %; Mean Corpuscular HGB Conc 32.1 g/dL (31.6-35.5); Mean Corpuscular Hemoglobin 29.1 pg (28.0-33.3); Mean Corpuscular Volume 90.7 fL (83.0-100.0); Mean Platelet Volume 9.9 fL (9.4-12.4); Monocytes # 0.4 K/mcL (0.0-1.3); Neutrophils # 8.4 K/mcL (1.6-8.9); Platelet Count 338 K/mcL (140-400); Red Blood Count 3.64 M/mcL (4.19-5.50); Red Cell Distribution Width 14.9 % (11.5-14.5)
[2017-11-08 05:40] LABS: BUN/Creatinine Ratio 34 (6-26); Blood Urea Nitrogen 15 mg/dL (6-20); Calcium 9.3 mg/dL (8.6-10.3); Carbon Dioxide 35 mEq/L (23-29); Chloride 96 mEq/L (98-107); Glucose 140 mg/dL (70-105); Osmolality,Calculated 287 (280-300); Potassium 3.9 mEq/L (3.5-5.1); Sodium 137 mEq/L (136-145); eGFR For African Americans > 60 (> 60); eGFR For Non-African Americans > 60 (> 60)
[2017-11-08] MEDS: *HR* Rivaroxaban 10 MG TABLET PO SCH (08:57)
[2017-11-08] MEDS: Loratadine 10 MG TABLET PO SCH (08:57)
[2017-11-08] MEDS: cefTRIAXone 1,000 MG in Water for inj. (sterile) 20 ML 10 ML IVP SCH (08:57)
[2017-11-08] MEDS: Furosemide 40 MG TABLET PO SCH ×3 (08:57→17:30)
[2017-11-08] MEDS: Azithromycin 500 MG in D5% in Water 250 ML IVPB SCH (08:58)
[2017-11-08] MEDS: (Roflumilast [Daliresp] 500 MCG) PO SCH (09:08)
[2017-11-08] MEDS: Budesonide/Formoterol 160/4.5 MDI IH SCH ×2 (10:59→22:32)
--- NOTE | 2017-11-08 12:21 | Internal Med Progress Note ---
Date of Encounter: 11/09/17 Time of Encounter: 12:23 - Assessment and plan (1) Community acquired pneumonia Current Visit: Yes Status: Acute Assessment and plan: Continue rocephin and azithromycin. Respiratory support as per below. Qualifiers: Laterality: left Lung location: lower lobe of lung Qualified Code(s): J18.1 - Lobar pneumonia, unspecified organism (2) Left lower lobe pneumonia Current Visit: Yes Status: Acute Assessment and plan: Improved cont bronchodilators as well as steroids continue Mucomyst as well as azithromycin and Rocephin, chest PT every 6 up in chair wean to home oxygen- presently on 3 L-he is on 2.5-3 at home Qualifiers: Pneumonia type: due to unspecified organism Qualified Code(s): J18.1 - Lobar pneumonia, unspecified organism (3) Acute exacerbation of chronic obstructive airways disease Current Visit: Yes Status: Acute Assessment and plan: Has some faint wheezes we will taper Solu-Medrol continue with dual meds continue with Claritin and Mucinex. Continue with Mucomyst and chest PT every 6 hours incentive spirometry encouraged up to chair 3 times a day presently on home oxygen We will trial Bipap at night dt spo2 dropping during sleep (4) Chronic respiratory failure with hypoxia Current Visit: Yes Status: Chronic Assessment and plan: Most likely secondary to COPD and pneumonia continue with oxygen titrating to maintain SPO2 greater than 90% We will trial for Bipap overnight to see if he qualifies (5) DVT prophylaxis Current Visit: Yes Status: Acute Assessment and plan: Continue home xarelto and start SCDs. (6) Essential hypertension Current Visit: Yes Status: Chronic Assessment and plan: Presently controlled we will continue with home medications. (7) History of pulmonary embolism Current Visit: Yes Status: Chronic Assessment and plan: Continue home xarelto. (8) Hypokalemia Current Visit: Yes Status: Acute Assessment and plan: Resolved continue to monitor (9) GERD (gastroesophageal reflux disease) Current Visit: Yes Status: Chronic Assessment and plan: Continue home medications. Qualifiers: Esophagitis presence: without esophagitis Qualified Code(s): K21.9 - Gastro -esophageal reflux disease without esophagitis - Time Spent With Patient Total time spent is greater than 50% in coordination of care (as documented) at patient's floor/unit and/or counseling patient: - Subjective Interval history: Patient seen and examined at bedside. States that he feels better.He is now at his baseline oxygen, he does have SOB on exertion, discussed bipap, he agreed for trial this PM - Constitutional Vitals: Temp Pulse Resp BP Pulse Ox 98.3 F 69 18 107/70 93 11/08/17 10:57 11/08/17 10:57 11/08/17 10:57 11/08/17 10:57 11/08/17 10:57 General appearance: Present: cooperative, A&O X 3, pleasant, no acute distress, answers questions appropriately - Head Head exam: Present: atraumatic, normocephalic - Eye Eye exam: Present: PERRL, conjuntiva pink, sclera anicteric Pupils: Present: PERRL - Neck Neck exam general surgery: Present: supple, trachea midline. Absent: lymphadenopathy - Respiratory Respiratory exam: Present: CTAB. Absent: accessory muscle use, rales, rhonchi, wheezes - Cardiovascular Cardiovascular exam: Present: RRR, +S1, +S2. Absent: diastolic murmur, gallop, rubs, systolic murmur - GI/Abdominal GI/Abdominal exam: Present: normal bowel sounds, soft, no peritoneal signs. Absent: distended, tenderness - Extremities Exam Extremities exam: Present: warm, radial pulses palpable and symmetrical. Absent : calf tenderness, cyanotic, pedal edema - Neurological Exam Neurological exam: Present: CN II-XII intact, oriented X3, no focal deficits. Absent: pronater drift, facial droop, speech deficit - Skin Skin exam: Present: dry, intact Internal Medicine: Result - Labs CBC & Chem 7: 11/08/17 04:58 11/08/17 04:58 Labs: Short CBC 11/08/17 Range/Units 04:58 WBC 9.6 (4.3-11.1) K/mcL Hgb 10.6 L (12.9-16.9) g/dL Hct 33.0 L (37.5-50.1) % Plt Count 338 (140-400) K/mcL Neutrophils # 8.4 (1.6-8.9) K/mcL BMP 11/08/17 04:58 Sodium 137 Potassium 3.9 Chloride 96 L Carbon Dioxide 35 H BUN 15 Creatinine 0.44 L Glucose 140 H Calcium 9.3 - ABG Interpretation ABG results: PT/INR, D-dimer PT 21.1 Seconds (9.4-12.1) H 11/06/17 10:08 - VTE Documentation of Mechanical Device: Intermittent pneumatic compression device Contraindication No Overlap Therapy: Admin of oral Factor Xa Inhibitor Consult Discharge Plan - Plan Referrals: Marilyn Rojas CNP [Primary Care Provider] - 11/16/17 10:15 am
[2017-11-09] MEDS: Ipratropium/Albuterol Neb 3 ML IH SCH ×2 (04:05→10:15)
[2017-11-09] MEDS: Acetylcysteine 10% 2 ML INHSOL IH SCH ×2 (04:06→10:15)
[2017-11-09] MEDS ORDERED: Ketorolac 30 MG/ML VIAL IVP ONE (04:49)
[2017-11-09] MEDS: MethylPREDNISolone 40 MG/ML VIAL IVP SCH (05:34)
[2017-11-09 06:11] LABS: ABG Base Excess 14 mEq/L (-2 to 3); ABG HCO3 40 mEq/L (21-27); ABG Oxygen Saturation 95 % (95-98); ABG PCO2 56 mmHg (35-45); ABG PH 7.47 pH Units (7.32-7.45); ABG PO2 75 mmHg (85-104); ABG TCO2 42 mEq/L (20-26)
[2017-11-09] MEDS: Furosemide 40 MG TABLET PO SCH ×2 (07:29→11:31)
[2017-11-09] MEDS: Loratadine 10 MG TABLET PO SCH (07:29)
[2017-11-09] MEDS: *HR* Rivaroxaban 10 MG TABLET PO SCH (07:29)
[2017-11-09] MEDS: (Roflumilast [Daliresp] 500 MCG) PO SCH (07:30)
[2017-11-09 07:49] LABS: Basophils % 0.1 %; Eosinophils % 0.1 %; Hematocrit 33.7 % (37.5-50.1); Hemoglobin 10.5 g/dL (12.9-16.9); Immature Granulocytes % 0.4 % (0-4); Lymphocytes # 0.4 K/mcL (0.6-4.6); Lymphocytes % 5.4 %; Mean Corpuscular HGB Conc 31.2 g/dL (31.6-35.5); Mean Corpuscular Hemoglobin 28.5 pg (28.0-33.3); Mean Corpuscular Volume 91.3 fL (83.0-100.0); Mean Platelet Volume 9.8 fL (9.4-12.4); Monocytes # 0.3 K/mcL (0.0-1.3); Monocytes % 3.4 %; Neutrophils # 7.1 K/mcL (1.6-8.9); Platelet Count 319 K/mcL (140-400); Red Blood Count 3.69 M/mcL (4.19-5.50); Red Cell Distribution Width 15.1 % (11.5-14.5); Segmented Neutrophils % 90.6 %
[2017-11-09 08:12] LABS: BUN/Creatinine Ratio 32 (6-26); Blood Urea Nitrogen 17 mg/dL (6-20); Calcium 9.1 mg/dL (8.6-10.3); Carbon Dioxide 36 mEq/L (23-29); Chloride 93 mEq/L (98-107); Glucose 144 mg/dL (70-105); Osmolality,Calculated 284 (280-300); Potassium 3.6 mEq/L (3.5-5.1); Sodium 135 mEq/L (136-145); eGFR For African Americans > 60 (> 60); eGFR For Non-African Americans > 60 (> 60)
[2017-11-09] MEDS: cefTRIAXone 1,000 MG in Water for inj. (sterile) 20 ML 10 ML IVP SCH (09:47)
[2017-11-09] MEDS: Azithromycin 500 MG in D5% in Water 250 ML IVPB SCH (09:47)
[2017-11-09] MEDS: Budesonide/Formoterol 160/4.5 MDI IH SCH (10:15)
[2017-11-09 11:42] VITALS: BP 103/64
--- NOTE | 2017-11-09 13:16 | Discharge Summary ---
- NOTES TO OUTPATIENT PROVIDER Notes to Outpatient Provider: Community acquired pneumonia/COPD exacerbation continue with azithromycin. Prednisone taper bronchodilators. He did qualify for BiPAP overnight Orders not resulted at time of discharge: Pending orders 11/07/17 11:10 Culture,Sputum with Gram Stain [RM] Routine Date of Encounter: 11/09/17 Time of Encounter: 13:13 - Discharge Diagnosis (1) Community acquired pneumonia Priority: Secondary Status: Acute Qualifiers: Laterality: left Lung location: lower lobe of lung Qualified Code(s): J18.1 - Lobar pneumonia, unspecified organism (2) Left lower lobe pneumonia Priority: Secondary Status: Acute Qualifiers: Pneumonia type: due to unspecified organism Qualified Code(s): J18.1 - Lobar pneumonia, unspecified organism (3) Acute exacerbation of chronic obstructive airways disease Priority: Primary Status: Acute (4) Chronic respiratory failure with hypoxia Priority: Secondary Status: Chronic (5) Essential hypertension Priority: Secondary Status: Chronic (6) History of pulmonary embolism Priority: Secondary Status: Chronic (7) Hypokalemia Priority: Secondary Status: Acute (8) GERD (gastroesophageal reflux disease) Priority: Secondary Status: Chronic Qualifiers: Esophagitis presence: without esophagitis Qualified Code(s): K21.9 - Gastro -esophageal reflux disease without esophagitis Hospital course: Mr. Blanchard is a 57 year old male past Meckel history COPD chronic respiratory failure he is on home oxygen at 3-4 L hypertension pulmonary embolism on xarelto. Patient presented to the emergency department after experiencing shortness of breath cough and thick sputum production. Chest x-ray and EGD did show increasing patchy left basilar opacity concerning for developing pneumonia white count was elevated. He was admitted received IV fluids as well as IV azithromycin and Rocephin Solu-Medrol and bronchodilators and chest percussion. His symptoms did improve, no wheezing noted cough improved no sputum production. No fevers or chills. White count returned to normal. During admission patient did qualify for BiPAP at night dt MYNOR sx . Patient states he is much improved and is requesting to go home. He does not appear to be any respiratory distress lung sounds are clear at this time. I did advise patient follow-up with PCP since this provider knows him best and can adjust medication accordingly I did give patient prescription for prednisone taper and azithromycin. Patient will have set up for BiPAP outpatient per home oxygen. Patient seems clinically stable at this time he verbalizes understanding of treatment plan and is ready for discharge - Time Spent with Patient Total time spent providing and/or coordinating discharge services: - Discharge Medications Prescriptions: Azithromycin [Zithromax] 250 mg PO DAILY #2 tablet Loratadine [Claritin] 10 mg PO DAILY #30 tablet predniSONE [PredniSONE] 10 mg PO DAILY #27 tablet Home Medications: Docusate [Colace] 100 mg PO BID 07/25/17 [History] Ipratropium/Albuterol Neb [Duoneb] 3 ml IH Q4H PRN 07/25/17 [History] Oxygen 4 l NS AD 07/25/17 [History] Roflumilast [Daliresp] 500 mcg PO DAILY 07/25/17 [History] Metoprolol [Lopressor] 25 mg PO BID 09/10/17 [History] Acetaminophen [Tylenol] 650 mg PO Q6HR PRN tablet 09/20/17 [Rx] Albuterol Sulfate [Albuterol Inhaler] 2 puff IH Q4H PRN #1 inhaler 09/20/17 [Rx] Budesonide Neb [Pulmicort Neb] 0.5 mg IH BID #1 inhsol 09/20/17 [Rx] Furosemide [Lasix] 40 mg PO TID #90 tab 09/20/17 [Rx] Mometasone/Formoterol [Dulera 200 Mcg/5 Mcg Inhaler] 2 puff IH BID #1 hfa.aer.ad 09/20/17 [Rx] Rivaroxaban [Xarelto] 20 mg PO DAILY #60 tablet 09/20/17 [Rx] Umeclidinium [place] [Incruse Ellipta] 62.5 mcg IH DAILY #1 blst.w.dev 09/20/17 [Rx] Omeprazole [PriLOSEC] 20 mg PO 0730 09/30/17 [History] Albuterol Neb [Proventil Neb] 2.5 mg IH Q6H PRN inhsol 11/09/17 [Rx] Azithromycin [Zithromax] 250 mg PO DAILY #2 tablet 11/09/17 [Rx] Loratadine [Claritin] 10 mg PO DAILY #30 tablet 11/09/17 [Rx] predniSONE [PredniSONE] 10 mg PO DAILY #27 tablet 11/09/17 [Rx] Allergies/Adverse Reactions: 3 Allergy/AdvReac Type Severity Reaction Status Date / Time levofloxacin AdvReac Blurry Verified 11/06/17 11:39 [facility] Date of admission: 11/06/17 11:53 Primary care physician: Marilyn Rojas CNP Consults: 11/07/17 09:35 Consult to Nurse Navigator [CONS] Routine Comment: COPD, PNEUMONIA Discharging clinician: Britt Millard Anticipated date of discharge: 11/09/17 - Constitutional Vitals: Temp Pulse Resp BP Pulse Ox 98.3 F 71 18 103/64 94 11/09/17 11:39 11/09/17 11:39 11/09/17 11:39 11/09/17 11:39 11/09/17 11:39 General appearance: Present: cooperative, A&O X 3, pleasant, no acute distress, answers questions appropriately - Head Head exam: Present: atraumatic, normocephalic - Eye Eye exam: Present: PERRL, conjuntiva pink, sclera anicteric Pupils: Present: PERRL - Neck Neck exam general surgery: Present: supple, trachea midline. Absent: lymphadenopathy - Respiratory Respiratory exam: Present: CTAB. Absent: accessory muscle use, rales, rhonchi, wheezes - Cardiovascular Cardiovascular exam: Present: RRR, +S1, +S2. Absent: diastolic murmur, gallop, rubs, systolic murmur - GI/Abdominal GI/Abdominal exam: Present: normal bowel sounds, soft, no peritoneal signs. Absent: distended, tenderness - Extremities Exam Extremities exam: Present: warm, radial pulses palpable and symmetrical. Absent : calf tenderness, cyanotic, pedal edema - Neurological Exam Neurological exam: Present: CN II-XII intact, oriented X3, no focal deficits. Absent: pronater drift, facial droop, speech deficit - Skin Skin exam: Present: dry, intact - Patient Status Disposition: Home Health Service Condition: Fair Functional capacity at discharge: independent ambulation Overall status at discharge: patient is back to baseline - Discharge Instructions Follow Up With: Marilyn Rojas CNP [Primary Care Provider] - 11/16/17 10:15 am - Diet and Activity Activity: wear oxygen at all times Diet: advance to your usual diet - VTE Documentation of Mechanical Device: Intermittent pneumatic compression device Contraindication No Overlap Therapy: Admin of oral Factor Xa Inhibitor
--- NOTE | 2017-11-13 09:01 | Physician Discharge Referral ---
Home Health/Hosp Referral Info Transfer to: Home Health Attending Provider: Britt cao Provider in Charge Post Discharge: PCP - Diagnosis (1) Community acquired pneumonia Priority: Primary Status: Acute (2) Left lower lobe pneumonia Priority: Secondary Status: Acute (3) Acute exacerbation of chronic obstructive airways disease Priority: Secondary Status: Acute (4) Chronic respiratory failure with hypoxia Priority: Secondary Status: Chronic (5) Essential hypertension Priority: Secondary Status: Chronic (6) History of pulmonary embolism Priority: Secondary Status: Chronic (7) Hypokalemia Priority: Secondary Status: Acute (8) GERD (gastroesophageal reflux disease) Priority: Secondary Status: Chronic - Respiratory Orders Smoking Cessation: Smoking cessation has been advised. For more information, call the [place] Tobacco Quit Line at 5-532-NDTA-NOW. - Services Needed Following services are medically necessary services: Nursing, Physical Therapy, Occupational Therapy - Transfer Medications Prescriptions: Azithromycin [Zithromax] 250 mg PO DAILY #2 tablet Loratadine [Claritin] 10 mg PO DAILY #30 tablet predniSONE [PredniSONE] 10 mg PO DAILY #27 tablet Home Medications: Docusate [Colace] 100 mg PO BID 07/25/17 [History] Ipratropium/Albuterol Neb [Duoneb] 3 ml IH Q4H PRN 07/25/17 [History] Oxygen 4 l NS AD 07/25/17 [History] Roflumilast [Daliresp] 500 mcg PO DAILY 07/25/17 [History] Metoprolol [Lopressor] 25 mg PO BID 09/10/17 [History] Acetaminophen [Tylenol] 650 mg PO Q6HR PRN tablet 09/20/17 [Rx] Albuterol Sulfate [Albuterol Inhaler] 2 puff IH Q4H PRN #1 inhaler 09/20/17 [Rx] Budesonide Neb [Pulmicort Neb] 0.5 mg IH BID #1 inhsol 09/20/17 [Rx] Furosemide [Lasix] 40 mg PO TID #90 tab 09/20/17 [Rx] Mometasone/Formoterol [Dulera 200 Mcg/5 Mcg Inhaler] 2 puff IH BID #1 hfa.aer.ad 09/20/17 [Rx] Rivaroxaban [Xarelto] 20 mg PO DAILY #60 tablet 09/20/17 [Rx] Umeclidinium [place] [Incruse Ellipta] 62.5 mcg IH DAILY #1 blst.w.dev 09/20/17 [Rx] Omeprazole [PriLOSEC] 20 mg PO 0730 09/30/17 [History] Albuterol Neb [Proventil Neb] 2.5 mg IH Q6H PRN inhsol 11/09/17 [Rx] Azithromycin [Zithromax] 250 mg PO DAILY #2 tablet 11/09/17 [Rx] Loratadine [Claritin] 10 mg PO DAILY #30 tablet 11/09/17 [Rx] predniSONE [PredniSONE] 10 mg PO DAILY #27 tablet 11/09/17 [Rx] Allergies/Adverse Reactions: 3 Allergy/AdvReac Type Severity Reaction Status Date / Time levofloxacin AdvReac Blurry Verified 11/06/17 11:39 [facility] Certification: Further, I certify that my clinical findings support that this patient is homebound (i.e. absences from home require considerable and taxing effort and are for medical reasons or [employer] services or infrequently or short duration when for other reasons) because: Homebound Reason: Severity of cardiac or pulmonary status limits activity tolerance Attestation: My signature below is to certify that this patient is under my care and that I, or nurse practitioner, or a physician's food service assistant working with me, has a face-to -face encounter with this patient.
== END 2017-11-09 15:07 | disposition home health service (06) | DRG 139 ==
LOC: EMEROO 09:35 → 3BNU 11:53
PROVIDERS: ADMIT Family Medicine; ATTEND Family Medicine

== ENCOUNTER 2017-11-13 14:07 | Inpatient (IN) ==
[2017-11-13] MEDS ORDERED: Ipratropium/Albuterol Neb 3 ML ONE (14:13)
[2017-11-13] MEDS ORDERED: MethylPREDNISolone 40 MG/ML VIAL IVP ONE (14:15)
[2017-11-13] MEDS: Ipratropium/Albuterol Neb 3 ML IH ONE ×2 (14:20→14:33)
[2017-11-13 15:00] LABS: Basophils % 0.1 %; Eosinophils # 0.1 K/mcL (0.0-0.6); Eosinophils % 0.6 %; Immature Granulocytes % 0.5 % (0-4); Lymphocytes % 9.4 %; Mean Corpuscular HGB Conc 31.5 g/dL (31.6-35.5); Mean Corpuscular Hemoglobin 28.5 pg (28.0-33.3); Mean Corpuscular Volume 90.3 fL (83.0-100.0); Mean Platelet Volume 9.4 fL (9.4-12.4); Monocytes # 0.3 K/mcL (0.0-1.3); Monocytes % 2.3 %; Neutrophils # 9.7 K/mcL (1.6-8.9); Platelet Count 385 K/mcL (140-400); Red Blood Count 4.32 M/mcL (4.19-5.50); Red Cell Distribution Width 15.3 % (11.5-14.5); Segmented Neutrophils % 87.1 %
[2017-11-13 15:03] LABS: BUN/Creatinine Ratio 30 (6-26); Blood Urea Nitrogen 18 mg/dL (6-20); Calcium 9.7 mg/dL (8.6-10.3); Carbon Dioxide 36 mEq/L (23-29); Chloride 94 mEq/L (98-107); Glucose 105 mg/dL (70-105); Hemoglobin 12.3 g/dL (12.9-16.9); Osmolality,Calculated 290 (280-300); Potassium 3.7 mEq/L (3.5-5.1); Sodium 139 mEq/L (136-145); eGFR For African Americans > 60 (> 60); eGFR For Non-African Americans > 60 (> 60)
[2017-11-13 15:04] LABS: Troponin I < 0.03 ng/mL (< 0.04)
[2017-11-13 15:08] LABS: VBG Base Excess 10 mEq/L; VBG Chloride 94 mEq/L (98-107); VBG Glucose 106 mg/dl (65-95); VBG HCO3 38 mEq/L (21-27); VBG Ionized Calcium 1.11 mmol/L (1.15-1.35); VBG Oxygen Saturation 76 %; VBG PCO2 67 mmHg (41-51); VBG PH 7.37 pH Units (7.32-7.42); VBG PO2 44 mmHg (25-50); VBG Total CO2 40 mEq/L
[2017-11-13] MEDS ORDERED: Ipratropium/Albuterol Neb 3 ML IH ONE (16:51)
[2017-11-13] MEDS ORDERED: 0.9 % Sodium Chloride 500 ML IVC ONE (19:23)
[2017-11-13] MEDS ORDERED: Magnesium Sulfate 2 GM in D5% in Water 100 ML IVPB ONE (19:45)
--- NOTE | 2017-11-13 20:00 | Emergency Department Note ---
Disposition Clinical Impression: Asthma exacerbation in COPD, COPD exacerbation Disposition: Admitted As Inpatient Condition: Fair Time of Disposition: 20:02 SOB HPI - General Chief Complaint: ED Shortness of Breath/Dyspnea Stated Complaint: PHYLLIS Time Seen by Provider: 11/13/17 14:12 Source: patient Limitations: no limitations Nursing Notes Reviewed: Yes Vital Signs Reviewed: Yes - History of Present Illness 49-year-old male with history of COPD presents ED because of worsening dyspnea. He has had multiple recent admissions due to COPD exacerbations. Symptoms get worse over the past 24 hours with drops in his home pulse oximeter readings to 80%. He is chronically on 4 L (per nasal cannula. He has taken some home nebulizers with minimal improvement. Currently on prednisone. Denies chest pain. Cough is productive of thin mucous. No measured fevers. Pt Subjective Complaint: shortness of breath, cough Onset (ago): hour(s) Context: recent illness Severity: moderate Consistency/Duration: constant, gradually worsening Improves with: nothing Worsens with: nothing Known history of: COPD Associated symptoms: Denies: chest pain Treatment prior to arrival: none Cough present: Yes Cough Frequency: Intermittent Sputum production: Yes Sputum Amount: Small Sputum Color: Yellow - Related Data Home Medications Medication Instructions Recorded Confirmed Docusate [Colace] 100 mg PO BID 07/25/17 11/13/17 Ipratropium/Albuterol Neb [Duoneb] 3 ml IH Q4H PRN 07/25/17 11/13/17 Oxygen 4 l NS AD 07/25/17 11/13/17 Roflumilast [Daliresp] 500 mcg PO DAILY 07/25/17 11/13/17 Metoprolol [Lopressor] 25 mg PO BID 09/10/17 11/13/17 Omeprazole [PriLOSEC] 20 mg PO 0730 09/30/17 11/13/17 Previous Rx's Medication Instructions Recorded Acetaminophen [Tylenol] 650 mg PO Q6HR PRN tablet 09/20/17 Albuterol Sulfate [Albuterol 2 puff IH Q4H PRN #1 inhaler 09/20/17 Inhaler] Budesonide Neb [Pulmicort Neb] 0.5 mg IH BID #1 inhsol 09/20/17 Furosemide [Lasix] 40 mg PO TID #90 tab 09/20/17 Mometasone/Formoterol [Dulera 200 2 puff IH BID #1 hfa.aer.ad 09/20/17 Mcg/5 Mcg Inhaler] Rivaroxaban [Xarelto] 20 mg PO DAILY #60 tablet 09/20/17 Umeclidinium [place] [Incruse 62.5 mcg IH DAILY #1 blst.w.dev 09/20/17 Ellipta] Albuterol Neb [Proventil Neb] 2.5 mg IH Q6H PRN inhsol 11/09/17 Azithromycin [Zithromax] 250 mg PO DAILY #2 tablet 11/09/17 Loratadine [Claritin] 10 mg PO DAILY #30 tablet 11/09/17 predniSONE [PredniSONE] 10 mg PO DAILY #27 tablet 11/09/17 Allergies Allergy/AdvReac Type Severity Reaction Status Date / Time levofloxacin AdvReac Blurry Verified 11/13/17 19:34 [facility] All systems ED: reviewed and negative except as stated. Constitutional: Denies: fever, chills Cardiovascular: Reports: dyspnea on exertion. Denies: chest pain Respiratory: Reports: cough, dyspnea, wheezes Gastrointestinal: Denies: vomiting Past Medical History - Past Medical History Attestation: Yes The following information was validated with the patient. Medical history: Reports: asthma, COPD, hypertension, pulmonary embolus Surgical history: Reports: no surgical history Psychiatric history: Reports: no psych history - Social History Smoking Status: Former smoker Smokeless Tobacco Status: No Alcohol use: Reports: none Drug use: Reports: marijuana Physical Exam - General Limitations: no limitations General appearance: alert - Head Head exam: atraumatic, normocephalic - Eye Eye exam: Present: normal appearance - ENT ENT exam: normal exam, normal oropharynx - Neck Neck exam: Present: normal inspection, trachea midline - Respiratory Respiratory exam: Present: respiratory distress, wheezes - Cardiovascular Cardiovascular exam: Present: tachycardia - Abdominal Exam Abdominal exam: Absent: tenderness - Extremities Exam Extremities exam: Absent: tenderness - Expanded Lower Extremity Exam Lower leg exam: Absent: tenderness, swelling Neurovascular/Tendon exam: Present: normal capillary refill - Back Exam Back exam: Present: normal inspection. Absent: CVA tenderness (R), CVA tenderness (L) - Neurological Exam Neurological exam: Present: alert, oriented X3 - Psychiatric Psychiatric exam: Present: normal affect - Skin Skin exam: Present: warm, dry Course - Reevaluation(s) Reevaluation #1: After 3 sequential aerosols of DuoNeb be improved still of some dyspnea and cough. Attempted ambulating became precipitously short of breath. He will receive IV magnesium and will be admitted to the hospital. Case discussed with hospitalist for admission. Time: 20:02 Reevaluation #2: The high probability of a clinically significant, sudden or life threatening deterioration of the [cardiopulmonary] system(s) required my full and direct attention, intervention and personal management. The aggregate critical care time was [15] minutes. This time is in addition to time spent performing reported procedures but includes the following: [x] Data Review and interpretation [x] Patient assessment and monitoring of vital signs [x] Documentation [x] Medication orders and management Vital Signs Temperature 98.1 F 11/13/17 14:09 Pulse Rate 119 11/13/17 14:09 Respiratory Rate 24 11/13/17 14:09 Blood Pressure 135/88 11/13/17 14:09 O2 Sat by Pulse Oximetry 94 11/13/17 14:09 Temperature 98.1 F 11/13/17 14:09 Pulse Rate 109 11/13/17 16:24 Respiratory Rate 20 11/13/17 20:52 Blood Pressure 150/93 11/13/17 20:52 O2 Sat by Pulse Oximetry 92 11/13/17 16:57 Oxygen Delivery Oxygen Delivery Nasal Cannula Shortness of Breath/Dyspnea - Lab Data Result diagrams: 11/13/17 14:15 11/13/17 14:15 Lab Results 11/13/17 11/13/17 11/13/17 Range/Units 14:15 14:15 14:55 WBC 11.1 (4.3-11.1) K/mcL RBC 4.32 (4.19-5.50) M/mcL Hgb 12.3 L D (12.9-16.9) g/dL Hct 39.0 (37.5-50.1) % MCV 90.3 (83.0-100.0) fL MCH 28.5 (28.0-33.3) pg MCHC 31.5 L (31.6-35.5) g/dL RDW 15.3 H (11.5-14.5) % Plt Count 385 (140-400) K/mcL MPV 9.4 (9.4-12.4) fL Immature Gran % 0.5 (0-4) % Seg Neutrophils % 87.1 % Lymphocytes % 9.4 % Monocytes % 2.3 % Eosinophils % 0.6 % Basophils % 0.1 % Neutrophils # 9.7 H (1.6-8.9) K/mcL Lymphocytes # 1.0 (0.6-4.6) K/mcL Monocytes # 0.3 (0.0-1.3) K/mcL Eosinophils # 0.1 (0.0-0.6) K/mcL Basophils # 0.0 (0.0-0.2) K/mcL VBG pH 7.37 (7.32-7.42) pH Units VBG pCO2 67 H (41-51) mmHg VBG pO2 44 (25-50) mmHg VBG HCO3 38 H (21-27) mEq/L VBG Total CO2 40 mEq/L VBG O2 Saturation 76 % VBG Base Excess 10 mEq/L VBG Hematocrit 41.0 (37.5-50.1) % VBG Lactic Acid 2.4 H (0.5-2.2) mmol/L Venous Sodium 137 (135-145) mEq/L Sodium 139 (136-145) mEq/L Venous Potassium 3.4 L (3.5-5.5) mEq/L Potassium 3.7 (3.5-5.1) mEq/L Venous Chloride 94 L (98-107) mEq/L Chloride 94 L (98-107) mEq/L Carbon Dioxide 36 H (23-29) mEq/L BUN 18 (6-20) mg/dL Creatinine 0.60 L (0.70-1.30) mg/dL Est GFR ( Amer) > 60 (> 60) Est GFR (Non-Af Amer) > 60 (> 60) BUN/Creatinine Ratio 30 H (6-26) Glucose 105 (70-105) mg/dL Whole Bld Glucose 106 H (65-95) mg/dl Calculated Osmolality 290 (280-300) Calcium 9.7 (8.6-10.3) mg/dL Venous Ioniz Calcium 1.11 L (1.15-1.35) mmol/L Troponin I < 0.03 (< 0.04) ng/mL - EKG Data EKG attestation: Yes I reviewed and interpreted this EKG. EKG shows normal: Reports: sinus rhythm Rate: Reports: tachycardia When compared to previous EKG there are: no significant changes
--- NOTE | 2017-11-13 23:05 | Internal Med History&Physical ---
Date of Encounter: 11/13/17 Internal Medicine - H&P: HPI History of present illness: Mr. Blanchard is a 57 year old male Past Med Surg Social Fam HX - Past Medical History Medical history: asthma, COPD, hypertension, pulmonary embolus Psychiatric history: anxiety - Past Surgical History Surgical History: no surgical history - Social History Smoking Status: Former smoker Packs per day: 4-5 Smokeless Tobacco Status: No Alcohol use: none Drug use: none - Family History Father Living Status: Hx Family Cancer: Yes Internal Medicine - H&P: Meds Docusate [Colace] 100 mg PO BID 07/25/17 [History] Ipratropium/Albuterol Neb [Duoneb] 3 ml IH Q4H PRN 07/25/17 [History] Oxygen 4 l NS AD 07/25/17 [History] Roflumilast [Daliresp] 500 mcg PO DAILY 07/25/17 [History] Metoprolol [Lopressor] 25 mg PO BID 09/10/17 [History] Acetaminophen [Tylenol] 650 mg PO Q6HR PRN tablet 09/20/17 [Rx] Albuterol Sulfate [Albuterol Inhaler] 2 puff IH Q4H PRN #1 inhaler 09/20/17 [Rx] Budesonide Neb [Pulmicort Neb] 0.5 mg IH BID #1 inhsol 09/20/17 [Rx] Furosemide [Lasix] 40 mg PO TID #90 tab 09/20/17 [Rx] Mometasone/Formoterol [Dulera 200 Mcg/5 Mcg Inhaler] 2 puff IH BID #1 hfa.aer.ad 09/20/17 [Rx] Rivaroxaban [Xarelto] 20 mg PO DAILY #60 tablet 09/20/17 [Rx] Umeclidinium [place] [Incruse Ellipta] 62.5 mcg IH DAILY #1 blst.w.dev 09/20/17 [Rx] Omeprazole [PriLOSEC] 20 mg PO 0730 09/30/17 [History] Albuterol Neb [Proventil Neb] 2.5 mg IH Q6H PRN inhsol 11/09/17 [Rx] Azithromycin [Zithromax] 250 mg PO DAILY #2 tablet 11/09/17 [Rx] Loratadine [Claritin] 10 mg PO DAILY #30 tablet 11/09/17 [Rx] predniSONE [PredniSONE] 10 mg PO DAILY #27 tablet 11/09/17 [Rx] 3 Allergy/AdvReac Type Severity Reaction Status Date / Time levofloxacin AdvReac Blurry Verified 11/13/17 19:34 [facility] All Systems PM: A 10-system review of systems was performed and is negative for pertinent findings except as documented above in the HPI. - Constitutional Vitals: Temp Pulse Resp BP Pulse Ox 98.2 F 103 93 122/76 92 11/13/17 21:20 11/13/17 21:20 11/13/17 21:20 11/13/17 21:20 11/13/17 16:57 Internal Med - H&P Results - Labs CBC & Chem 7: 11/13/17 14:15 11/13/17 14:15 - Time Spent With Patient Total time spent is greater than 50% in coordination of care (as documented) at patient's floor/unit and/or counseling patient:
[2017-11-14] MEDS ORDERED: Acetaminophen 325 MG TABLET PO PRN ×2 (00:25→00:27)
[2017-11-14] MEDS ORDERED: Naloxone 0.4 MG/ML INJ IVP PRN (00:27)
[2017-11-14 01:56] LABS: Hematocrit 33.6 % (37.5-50.1); Hemoglobin 10.8 g/dL (12.9-16.9); Mean Corpuscular HGB Conc 32.1 g/dL (31.6-35.5); Mean Corpuscular Hemoglobin 28.6 pg (28.0-33.3); Mean Corpuscular Volume 89.1 fL (83.0-100.0); Mean Platelet Volume 9.4 fL (9.4-12.4); Platelet Count 343 K/mcL (140-400); Red Blood Count 3.77 M/mcL (4.19-5.50); Red Cell Distribution Width 15.3 % (11.5-14.5)
[2017-11-14 02:06] LABS: Prothrombin Time 11.1 Seconds (9.4-12.1)
[2017-11-14 02:09] LABS: Activated Partial Thrombo Time 25.3 Seconds (26.0-36.0)
[2017-11-14 02:24] LABS: Alanine Aminotransferase 13 Units/L (7-52); Albumin 3.3 g/dL (3.5-5.7); Albumin/Globulin Ratio 1.3 (1.1-2.2); Alkaline Phosphatase 67 Units/L (34-104); Aspartate Amino Transferase 9 Units/L (13-39); BUN/Creatinine Ratio 41 (6-26); Bilirubin,Total 0.3 mg/dL (0.3-1.0); Blood Urea Nitrogen 18 mg/dL (6-20); Calcium 8.9 mg/dL (8.6-10.3); Carbon Dioxide 35 mEq/L (23-29); Chloride 99 mEq/L (98-107); Chol/HDL Ratio 2.3 (0-4.9); Cholesterol 184 mg/dL (< 200); Globulin 2.6 g/dL (2.4-3.5); Glucose 160 mg/dL (70-105); HDL Cholesterol 81 mg/dL (40-59); LDL Cholesterol,Calculated 93 mg/dL (0-99); Magnesium 2.6 mg/dL (1.6-2.6); Osmolality,Calculated 289 (280-300); Phosphorous 3.8 mg/dL (2.7-4.5); Potassium 4.5 mEq/L (3.5-5.1); Sodium 137 mEq/L (136-145); Total Protein 5.9 g/dL (6.4-8.9); Triglycerides 51 mg/dL (< 150); eGFR For African Americans > 60 (> 60); eGFR For Non-African Americans > 60 (> 60)
[2017-11-14] MEDS: *HR* HYDROcodone/Acet 5/325 mg TABLET PO PRN ×2 (03:19→20:04)
[2017-11-14] MEDS ORDERED: Albuterol 2.5 MG/3 ML NEBULIZER IH PRN (04:00)
[2017-11-14] MEDS: Ipratropium/Albuterol Neb 3 ML IH PRN ×4 (04:05→19:41)
[2017-11-14] MEDS: Budesonide Neb 0.5 MG/2 ML IH SCH ×2 (07:37→19:41)
[2017-11-14] MEDS: Loratadine 10 MG TABLET PO SCH (07:48)
[2017-11-14] MEDS: Furosemide 20 MG TABLET PO SCH ×3 (07:48→20:04)
[2017-11-14] MEDS: *HR* Rivaroxaban 10 MG TABLET PO SCH (07:48)
[2017-11-14] MEDS: (Umeclidinium Bromide [Incruse Ellipta] 62.5 MCG) IH SCH (07:50)
[2017-11-14] MEDS: (Roflumilast [Daliresp] 500 MCG) PO SCH (07:50)
[2017-11-14] MEDS: [UNRECOGNIZED DRUG - OTHER] IH SCH ×2 (07:50→20:04)
[2017-11-14] MEDS: DULERA IH SCH ×2 (07:50→20:04)
--- NOTE | 2017-11-14 16:30 | Electrocardiograph Report ---
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
--- NOTE | 2017-11-14 18:23 | Internal Med Progress Note ---
Date of Encounter: 11/14/17 Time of Encounter: 18:21 - Assessment and plan (1) Acute exacerbation of chronic obstructive airways disease Current Visit: Yes Status: Acute Assessment and plan: Continue current treatment, resume prednisone. (2) Pneumonia Current Visit: Yes Status: Acute Assessment and plan: Started patient on Rocephin and azithromycin. Qualifiers: Pneumonia type: due to Pneumococcus Laterality: left Lung location: lower lobe of lung Qualified Code(s): J13 - Pneumonia due to Streptococcus pneumoniae (3) Essential hypertension Current Visit: No Status: Chronic Assessment and plan: Monitor BP, continue home medications. (4) Pulmonary embolism Current Visit: No Status: Chronic Assessment and plan: Continue oral anticoagulation. Qualifiers: Pulmonary embolism type: other Chronicity: acute Acute cor pulmonale presence: without acute cor pulmonale Qualified Code(s): I26.99 - Other pulmonary embolism without acute cor pulmonale - Time Spent With Patient Total time spent is greater than 50% in coordination of care (as documented) at patient's floor/unit and/or counseling patient: Greater than 35 minutes - Subjective Interval history: Patient has no complaints. - Constitutional Vitals: Temp Pulse Resp BP Pulse Ox 97.9 F 75 16 109/71 92 11/14/17 15:41 11/14/17 15:41 11/14/17 15:41 11/14/17 15:41 11/14/17 15:41 General appearance: Present: A&O X 3 Exam: PHYSICAL EXAMINATION: GENERAL APPEARANCE: The patient is alert, oriented and in no acute distress. HEENT: Head is normocephalic. The sinuses are nontender. Pupils are equal and reactive. The nares are patent. Oropharynx clear without lesions. NECK: Supple without lymphadenopathy. HEART: Regular rate and rhythm. LUNGS: No crackles or wheezes are heard. ABDOMEN: Soft, nontender, nondistended with good bowel sounds heard. Inguinal area is normal. EXTREMITIES: Without cyanosis, clubbing or edema. NEUROLOGICAL: Gross nonfocal. SKIN: Warm and dry without any rash. Internal Medicine: Result - Labs CBC & Chem 7: 11/14/17 01:32 11/14/17 01:32 Labs: Short CBC 11/14/17 Range/Units 01:32 WBC 7.0 (4.3-11.1) K/mcL Hgb 10.8 L D (12.9-16.9) g/dL Hct 33.6 L (37.5-50.1) % Plt Count 343 (140-400) K/mcL BMP 11/14/17 01:32 Sodium 137 Potassium 4.5 Chloride 99 Carbon Dioxide 35 H BUN 18 Creatinine 0.44 L Glucose 160 H Calcium 8.9 Cardiac Enzymes 11/14/17 11/14/17 11/14/17 Range/Units 01:32 07:15 13:18 Troponin I < 0.03 < 0.03 < 0.03 (< 0.04) ng/mL Liver Function 11/14/17 Range/Units 01:32 Total Bilirubin 0.3 (0.3-1.0) mg/dL AST 9 L (13-39) Units/L ALT 13 (7-52) Units/L Alkaline Phosphatase 67 (34-104) Units/L Albumin 3.3 L (3.5-5.7) g/dL - ABG Interpretation ABG results: PT/INR, D-dimer PT 11.1 Seconds (9.4-12.1) 11/14/17 01:32 Consult Discharge Plan - Plan Referrals: Marilyn Rojas, MINE DEVELOPMENT ENGINEER [Primary Care Provider] -
[2017-11-14] MEDS: PrednisoLONE Oral Soln 15 MG/5 ML UDC PO SCH (18:40)
[2017-11-14] MEDS: Azithromycin 500 MG in D5% in Water 250 ML IVPB SCH (18:41)
[2017-11-14] MEDS: cefTRIAXone 2,000 MG in Water for inj. (sterile) 20 ML 20 ML IVP SCH (18:41)
[2017-11-14 23:32] LABS: Bilirubin,Urine Negative (Negative); Blood,Urine Negative (Negative); Clarity,Urine Clear (Clear); Color,Urine Yellow (Yellow); Glucose,Urine (UA) Normal (Normal); Ketones,Urine Negative (Negative); Leukocyte Esterase,Urine Negative (Negative); Nitrite,Urine Negative (Negative); Protein,Urine Negative (Neg-Trace); Specific Gravity,Urine 1.013 (1.010-1.025); Urobilinogen,Urine Normal (Normal)
[2017-11-15] MEDS: Budesonide Neb 0.5 MG/2 ML IH SCH ×2 (07:29→19:21)
[2017-11-15] MEDS: Ipratropium/Albuterol Neb 3 ML IH PRN ×3 (07:29→23:11)
[2017-11-15] MEDS: [UNRECOGNIZED DRUG - OTHER] IH SCH ×2 (09:10→20:30)
[2017-11-15] MEDS: DULERA IH SCH ×2 (09:10→20:30)
[2017-11-15] MEDS: (Roflumilast [Daliresp] 500 MCG) PO SCH (09:12)
[2017-11-15] MEDS: (Umeclidinium Bromide [Incruse Ellipta] 62.5 MCG) IH SCH (09:12)
[2017-11-15] MEDS: Loratadine 10 MG TABLET PO SCH (09:18)
[2017-11-15] MEDS: *HR* Rivaroxaban 10 MG TABLET PO SCH (09:18)
[2017-11-15] MEDS: Furosemide 20 MG TABLET PO SCH ×3 (09:18→20:28)
[2017-11-15 09:22] LABS: Eosinophils # 0.1 K/mcL (0.0-0.6); Eosinophils % 1.3 %; Hematocrit 40.4 % (37.5-50.1); Immature Granulocytes % 0.5 % (0-4); Lymphocytes # 1.7 K/mcL (0.6-4.6); Lymphocytes % 22.4 %; Mean Corpuscular HGB Conc 32.2 g/dL (31.6-35.5); Mean Corpuscular Hemoglobin 29.5 pg (28.0-33.3); Mean Corpuscular Volume 91.6 fL (83.0-100.0); Mean Platelet Volume 9.6 fL (9.4-12.4); Monocytes # 0.2 K/mcL (0.0-1.3); Monocytes % 2.2 %; Neutrophils # 5.6 K/mcL (1.6-8.9); Platelet Count 376 K/mcL (140-400); Red Blood Count 4.41 M/mcL (4.19-5.50); Red Cell Distribution Width 15.2 % (11.5-14.5); Segmented Neutrophils % 73.6 %
[2017-11-15] MEDS: PrednisoLONE Oral Soln 15 MG/5 ML UDC PO SCH (09:22)
[2017-11-15 09:41] LABS: BUN/Creatinine Ratio 40 (6-26); Blood Urea Nitrogen 20 mg/dL (6-20); Calcium 9.6 mg/dL (8.6-10.3); Carbon Dioxide 35 mEq/L (23-29); Chloride 95 mEq/L (98-107); Glucose 95 mg/dL (70-105); Osmolality,Calculated 284 (280-300); Potassium 4.2 mEq/L (3.5-5.1); Sodium 136 mEq/L (136-145); eGFR For African Americans > 60 (> 60); eGFR For Non-African Americans > 60 (> 60)
--- NOTE | 2017-11-15 14:00 | Internal Med Progress Note ---
Date of Encounter: 11/15/17 Time of Encounter: 13:57 - Assessment and plan (1) Pneumonia Current Visit: Yes Status: Acute Assessment and plan: Presented with increasing shortness of breath above baseline Has history of COPD Also has history of recent pneumonia diagnosis. CXR 11/06/17 shows left lower and middle lobe pneumonia Repeat CXR 11/13/17 shows ill-defined airspace opacities in the left mid to lower lobe without significant changes Continues to have shortness of breath this morning Lungs are diminished with expiratory wheezing, prolonged expiratory phase, and some mild conversational dyspnea with prolonged conversation. Leukocytosis noted, WBC 7.6 today-11/15/17, has remained afebrile greater than 48 hours and is hemodynamically stable Continue Rocephin and azithromycin BiPAP when necessary Oral steroids daily Continue aerosols Daily labs Respiratory support per nasal cannula, titrate to maintain SPO2 greater than 92% Qualifiers: Pneumonia type: due to Pneumococcus Laterality: left Lung location: lower lobe of lung Qualified Code(s): J13 - Pneumonia due to Streptococcus pneumoniae (2) Acute exacerbation of chronic obstructive airways disease Current Visit: Yes Status: Acute Assessment and plan: See above (3) Essential hypertension Current Visit: No Status: Chronic Assessment and plan: History of HTN, BP stable, continue home medications. (4) Pulmonary embolism Current Visit: No Status: Chronic Assessment and plan: H/O PE, Continue Xarelto Wells score of 1.5 does not have obvious signs or symptoms of PE See above for assessment and plan Qualifiers: Pulmonary embolism type: other Chronicity: acute Acute cor pulmonale presence: without acute cor pulmonale Qualified Code(s): I26.99 - Other pulmonary embolism without acute cor pulmonale (5) Acute on chronic respiratory failure with hypercapnia Current Visit: Yes Status: Acute Assessment and plan: PCO2 67 on admission Patient with home BiPAP, unclear of degree of compliance See further assessment and plan above - Time Spent With Patient Total time spent is greater than 50% in coordination of care (as documented) at patient's floor/unit and/or counseling patient: 25 - 35 minutes - Subjective Interval history: Patient seen and examined at bedside today. No acute changes over night. Continues to report shortness of breath, and cough. Denies any fever, chills - Constitutional Vitals: Temp Pulse Resp BP Pulse Ox 98.5 F 76 16 122/76 93 06/27/18 11:32 11/15/17 11:32 11/15/17 11:32 11/15/17 11:32 11/15/17 11:32 General appearance: Present: A&O X 3 - Head Head exam: Present: atraumatic, normocephalic - Eye Eye exam: Present: EOMI, PERRL, conjuntiva pink, sclera anicteric Pupils: Present: PERRL - Neck Neck exam general surgery: Present: supple, trachea midline. Absent: lymphadenopathy - Respiratory Respiratory exam: Present: CTAB. Absent: accessory muscle use, rales, rhonchi, wheezes - Cardiovascular Cardiovascular exam: Present: RRR, +S1, +S2. Absent: diastolic murmur, gallop, rubs, systolic murmur - GI/Abdominal GI/Abdominal exam: Present: normal bowel sounds, soft, no peritoneal signs. Absent: distended, tenderness - Extremities Exam Extremities exam: Present: warm, radial pulses palpable and symmetrical. Absent : calf tenderness, cyanotic, pedal edema - Neurological Exam Neurological exam: Present: CN II-XII intact, oriented X3, no focal deficits. Absent: pronater drift, facial droop, speech deficit - Skin Skin exam: Present: dry, intact Internal Medicine: Result - Labs CBC & Chem 7: 11/15/17 08:39 11/15/17 08:39 Labs: Short CBC 11/15/17 Range/Units 08:39 WBC 7.6 (4.3-11.1) K/mcL Hgb 13.0 D (12.9-16.9) g/dL Hct 40.4 (37.5-50.1) % Plt Count 376 (140-400) K/mcL Neutrophils # 5.6 (1.6-8.9) K/mcL BMP 11/15/17 08:39 Sodium 136 Potassium 4.2 Chloride 95 L Carbon Dioxide 35 H BUN 20 Creatinine 0.50 L Glucose 95 Calcium 9.6 Cardiac Enzymes 11/14/17 Range/Units 13:18 Troponin I < 0.03 (< 0.04) ng/mL Urine 11/14/17 Range/Units 23:20 Urine Color Yellow (Yellow) Urine Clarity Clear (Clear) Urine pH 6.0 (5.0-8.0) pH Units Ur Specific [place] 1.013 (1.010-1.025) Urine Protein Negative (Neg-Trace) mg/dL Urine Glucose (UA) Normal (Normal) mg/dL - ABG Interpretation ABG results: PT/INR, D-dimer PT 11.1 Seconds (9.4-12.1) 11/14/17 01:32 Consult Discharge Plan - Plan Referrals: Marilyn Rojas, [employer]OR [Primary Care Provider] -
[2017-11-15] MEDS: cefTRIAXone 2,000 MG in Water for inj. (sterile) 20 ML 20 ML IVP SCH (17:15)
[2017-11-15] MEDS: Azithromycin 500 MG in D5% in Water 250 ML IVPB SCH (17:18)
[2017-11-15] MEDS: Fluticasone Propionate Nasal 50 MCG/SPRAY BOTTLE NS SCH (21:36)
[2017-11-16] MEDS: Ipratropium/Albuterol Neb 3 ML IH PRN (04:37)
[2017-11-16 06:58] LABS: Basophils % 0.1 %; Eosinophils # 0.2 K/mcL (0.0-0.6); Eosinophils % 1.8 %; Hematocrit 37.9 % (37.5-50.1); Hemoglobin 12.2 g/dL (12.9-16.9); Immature Granulocytes % 0.5 % (0-4); Lymphocytes # 2.3 K/mcL (0.6-4.6); Lymphocytes % 24.6 %; Mean Corpuscular HGB Conc 32.2 g/dL (31.6-35.5); Mean Corpuscular Hemoglobin 29.2 pg (28.0-33.3); Mean Corpuscular Volume 90.7 fL (83.0-100.0); Monocytes # 0.3 K/mcL (0.0-1.3); Monocytes % 3.1 %; Neutrophils # 6.5 K/mcL (1.6-8.9); Platelet Count 345 K/mcL (140-400); Red Blood Count 4.18 M/mcL (4.19-5.50); Red Cell Distribution Width 15.1 % (11.5-14.5); Segmented Neutrophils % 69.9 %
[2017-11-16 07:04] LABS: BUN/Creatinine Ratio 36 (6-26); Blood Urea Nitrogen 19 mg/dL (6-20); Calcium 9.5 mg/dL (8.6-10.3); Carbon Dioxide 34 mEq/L (23-29); Chloride 91 mEq/L (98-107); Glucose 81 mg/dL (70-105); Osmolality,Calculated 277 (280-300); Potassium 4.1 mEq/L (3.5-5.1); Sodium 133 mEq/L (136-145); eGFR For African Americans > 60 (> 60); eGFR For Non-African Americans > 60 (> 60)
[2017-11-16] MEDS ORDERED: Ipratropium/Albuterol Neb 3 ML ONE (07:58)
[2017-11-16] MEDS: Furosemide 20 MG TABLET PO SCH ×3 (08:25→21:24)
[2017-11-16] MEDS: Loratadine 10 MG TABLET PO SCH (08:25)
[2017-11-16] MEDS: PrednisoLONE Oral Soln 15 MG/5 ML UDC PO SCH (08:25)
[2017-11-16] MEDS: *HR* Rivaroxaban 10 MG TABLET PO SCH (08:25)
[2017-11-16] MEDS: Fluticasone Propionate Nasal 50 MCG/SPRAY BOTTLE NS SCH (08:26)
[2017-11-16] MEDS: (Roflumilast [Daliresp] 500 MCG) PO SCH (08:27)
[2017-11-16] MEDS ORDERED: Ipratropium/Albuterol Neb 3 ML IH SCH (10:00)
[2017-11-16] MEDS: Budesonide Neb 0.5 MG/2 ML IH SCH ×2 (10:07→19:52)
[2017-11-16] MEDS: MethylPREDNISolone 40 MG/ML VIAL IVP SCH ×3 (13:00→23:24)
--- NOTE | 2017-11-16 13:57 | Internal Med Progress Note ---
Date of Encounter: 11/16/17 Time of Encounter: 13:55 - Assessment and plan (1) Pneumonia Current Visit: Yes Status: Acute Assessment and plan: Presented with increasing shortness of breath above baseline Has history of COPD-acute exacerbation of COPD in the setting of pneumonia Also has history of recent pneumonia diagnosis. CXR 11/06/17 shows left lower and middle lobe pneumonia, unclear if a bacterial or viral Repeat CXR 11/13/17 shows ill-defined airspace opacities in the left mid to lower lobe without significant changes Continues to have shortness of breath this morning, expiratory wheezes Lungs are diminished with expiratory wheezing, prolonged expiratory phase, and some mild conversational dyspnea with prolonged conversation. No Leukocytosis noted, WBC 9.3 today-11/16/17, has remained afebrile greater than 48 hours and remains hemodynamically stable Continue Rocephin and azithromycin BiPAP when necessary IV steroids Continue aerosols every 4 hours scheduled Daily labs Respiratory support per nasal cannula, titrate to maintain SPO2 greater than 92% Obtain RIP, Legionella, strep pneumo and mycoplasma CXR in the morning Qualifiers: Pneumonia type: due to Pneumococcus Laterality: left Lung location: lower lobe of lung Qualified Code(s): J13 - Pneumonia due to Streptococcus pneumoniae (2) Acute exacerbation of chronic obstructive airways disease Current Visit: Yes Status: Acute Assessment and plan: Acute exacerbation of COPD Continuing to have dyspnea, cough, reporting wheezing today Lungs are clear/diminished, prolonged expiratory phase expiratory wheezes auscultated throughout AP and L Aerosols every 4 hours scheduled Start IV steroids now (3) Essential hypertension Current Visit: No Status: Chronic Assessment and plan: History of HTN, BP remains stable today, 11/16/17, continue home anti-HTN medications. (4) Pulmonary embolism Current Visit: No Status: Chronic Assessment and plan: H/O PE, Continue Xarelto Wells score of 1.5 does not have obvious signs or symptoms of PE See above for assessment and plan Qualifiers: Pulmonary embolism type: other Chronicity: acute Acute cor pulmonale presence: without acute cor pulmonale Qualified Code(s): I26.99 - Other pulmonary embolism without acute cor pulmonale (5) Acute on chronic respiratory failure with hypercapnia Current Visit: Yes Status: Acute Assessment and plan: PCO2 67 on admission Patient with home BiPAP, unclear of degree of compliance Continue BiPAP at night See further assessment and plan above - Time Spent With Patient Total time spent is greater than 50% in coordination of care (as documented) at patient's floor/unit and/or counseling patient: 25 - 35 minutes - Subjective Interval history: Patient seen and examined at bedside today. No acute changes over night. Continues to report shortness of breath, and cough, reports that his dyspnea is worse today, also having wheezing. Denies any fever, chills - Constitutional Vitals: Temp Pulse Resp BP Pulse Ox 98.3 F 80 16 102/69 90 11/16/17 11:20 11/16/17 11:20 11/16/17 11:20 11/16/17 11:20 11/16/17 11:20 General appearance: Present: A&O X 3 - Head Head exam: Present: atraumatic, normocephalic - Eye Eye exam: Present: PERRL, conjuntiva pink, sclera anicteric Pupils: Present: PERRL - Neck Neck exam general surgery: Present: supple, trachea midline. Absent: lymphadenopathy - Respiratory Respiratory exam: Present: decreased breath sounds, CTAB, prolonged expiratory phase, wheezes. Absent: accessory muscle use, rales, rhonchi - Cardiovascular Cardiovascular exam: Present: RRR, +S1, +S2. Absent: diastolic murmur, gallop, rubs, systolic murmur - GI/Abdominal GI/Abdominal exam: Present: normal bowel sounds, soft, no peritoneal signs. Absent: distended, tenderness - Extremities Exam Extremities exam: Present: warm, radial pulses palpable and symmetrical. Absent : calf tenderness, cyanotic, pedal edema - Neurological Exam Neurological exam: Present: CN II-XII intact, oriented X3, no focal deficits. Absent: pronater drift, facial droop, speech deficit - Skin Skin exam: Present: dry, intact Internal Medicine: Result - Labs CBC & Chem 7: 11/16/17 05:24 11/16/17 05:24 Labs: Short CBC 11/16/17 Range/Units 05:24 WBC 9.3 (4.3-11.1) K/mcL Hgb 12.2 L (12.9-16.9) g/dL Hct 37.9 (37.5-50.1) % Plt Count 345 (140-400) K/mcL Neutrophils # 6.5 (1.6-8.9) K/mcL BMP 11/16/17 05:24 Sodium 133 L Potassium 4.1 Chloride 91 L Carbon Dioxide 34 H BUN 19 Creatinine 0.53 L Glucose 81 Calcium 9.5 - ABG Interpretation ABG results: PT/INR, D-dimer PT 11.1 Seconds (9.4-12.1) 11/14/17 01:32 Consult Discharge Plan - Plan Referrals: Marilyn Rojas, [employer] [Primary Care Provider] -
[2017-11-16 15:23] LABS: Adenovirus Not Detected (Not Detect); Bordetella Pertussis Not Detected (Not Detect); Chlamydophila pneumoniae Not Detected (Not Detect); Coronavirus 229E Not Detected (Not Detect); Coronavirus HKU1 Not Detected (Not Detect); Coronavirus NL63 Not Detected (Not Detect); Coronavirus OC43 Not Detected (Not Detect); Human Metapneumovirus Not Detected (Not Detect); Human Rhinovirus/Enterovirus Not Detected (Not Detect); Influenza A Subtype 2009 H1 Not Detected (Not Detect); Influenza A Untypeable Not Detected (Not Detect); Influenza B Not Detected (Not Detect); Mycoplasma pneumoniae Not Detected (Not Detect); Parainfluenza Virus 1 Not Detected (Not Detect); Parainfluenza Virus 2 Not Detected (Not Detect); Parainfluenza Virus 3 ***DETECTED*** (Not Detect); Parainfluenza Virus 4 Not Detected (Not Detect); Respiratory Syncytial Virus Not Detected (Not Detect)
[2017-11-16] MEDS: Ipratropium/Albuterol Neb 3 ML IH SCH ×4 (15:44→23:00)
[2017-11-16] MEDS: cefTRIAXone 2,000 MG in Water for inj. (sterile) 20 ML 20 ML IVP SCH (17:19)
[2017-11-16] MEDS: Azithromycin 500 MG in D5% in Water 250 ML IVPB SCH (17:30)
[2017-11-16] MEDS ORDERED: Fluticasone Propionate Nasal 50 MCG/SPRAY BOTTLE NS SCH (21:00)
[2017-11-16] MEDS: *HR* HYDROcodone/Acet 5/325 mg TABLET PO PRN (21:24)
[2017-11-17] MEDS: Ipratropium/Albuterol Neb 3 ML IH SCH ×6 (04:26→23:40)
[2017-11-17] MEDS: MethylPREDNISolone 40 MG/ML VIAL IVP SCH ×2 (05:48→11:46)
[2017-11-17 06:06] LABS: Hematocrit 35.9 % (37.5-50.1); Hemoglobin 11.8 g/dL (12.9-16.9); Immature Granulocytes % 0.8 % (0-4); Lymphocytes # 0.8 K/mcL (0.6-4.6); Lymphocytes % 10.1 %; Mean Corpuscular HGB Conc 32.9 g/dL (31.6-35.5); Mean Corpuscular Hemoglobin 28.6 pg (28.0-33.3); Mean Corpuscular Volume 86.9 fL (83.0-100.0); Mean Platelet Volume 9.5 fL (9.4-12.4); Monocytes # 0.1 K/mcL (0.0-1.3); Monocytes % 0.7 %; Neutrophils # 6.7 K/mcL (1.6-8.9); Platelet Count 400 K/mcL (140-400); Red Blood Count 4.13 M/mcL (4.19-5.50); Red Cell Distribution Width 14.8 % (11.5-14.5); Segmented Neutrophils % 88.4 %
[2017-11-17 06:24] LABS: BUN/Creatinine Ratio 44 (6-26); Blood Urea Nitrogen 21 mg/dL (6-20); Calcium 9.6 mg/dL (8.6-10.3); Carbon Dioxide 32 mEq/L (23-29); Chloride 92 mEq/L (98-107); Glucose 204 mg/dL (70-105); Osmolality,Calculated 283 (280-300); Potassium 4.2 mEq/L (3.5-5.1); Sodium 132 mEq/L (136-145); eGFR For African Americans > 60 (> 60); eGFR For Non-African Americans > 60 (> 60)
[2017-11-17] MEDS: Budesonide Neb 0.5 MG/2 ML IH SCH ×2 (07:37→20:00)
[2017-11-17] MEDS: *HR* Rivaroxaban 10 MG TABLET PO SCH (08:23)
[2017-11-17] MEDS: Loratadine 10 MG TABLET PO SCH (08:23)
[2017-11-17] MEDS: Furosemide 20 MG TABLET PO SCH ×3 (08:23→21:17)
[2017-11-17] MEDS: (Roflumilast [Daliresp] 500 MCG) PO SCH (08:24)
[2017-11-17] MEDS: Fluticasone Propionate Nasal 50 MCG/SPRAY BOTTLE NS SCH (08:25)
[2017-11-17] MEDS ORDERED: Ipratropium/Albuterol Neb 3 ML ONE (13:28)
[2017-11-17] MEDS ORDERED: Ipratropium/Albuterol Neb 3 ML IH ONE ×2 (13:40→13:44)
[2017-11-17 13:41] LABS: ABG Base Excess 6 mEq/L (-2 to 3); ABG HCO3 35 mEq/L (21-27); ABG Oxygen Saturation 98 % (95-98); ABG PCO2 66 mmHg (35-45); ABG PH 7.33 pH Units (7.32-7.45); ABG PO2 114 mmHg (85-104); ABG TCO2 37 mEq/L (20-26)
--- NOTE | 2017-11-17 15:17 | Event Note ---
Date of Encounter: 11/17/17 Time of Encounter: 14:20 Rapid response called this afternoon. Upon arrival to the patient's room he was hypoxic with SPO2 in the 80s and in respiratory distress. The patient was eating lunch and appears to have aspirated on an apple. Per auscultation the patient appeared to have stridor. He was placed on high flow nasal cannula as he was able to cough. After delivering a back below the patient did manage to cough up multiple chunks of apple. Respiratory status improved. Throughout rapid response pulmonology, respiratory therapy, and nursing staff present. Patient was given 2 doses of DuoNeb's. Additionally, he is to receive an additional dose for the next 2 hours on the hour and should have hourly vitals checks until 1600. Patient is continuing to cough respiratory status improving at this time. Speech therapy consult was placed, recommend soft diet with thin liquids.
--- NOTE | 2017-11-17 15:20 | Internal Med Progress Note ---
Date of Encounter: 11/17/17 Time of Encounter: 15:17 - Assessment and plan (1) Pneumonia Current Visit: Yes Status: Acute Assessment and plan: Presented with increasing shortness of breath above baseline Has history of COPD-acute exacerbation of COPD in the setting of pneumonia Also has history of recent pneumonia diagnosis. CXR 11/06/17 shows left lower and middle lobe pneumonia, unclear if a bacterial or viral Repeat CXR 11/13/17 shows ill-defined airspace opacities in the left mid to lower lobe without significant changes Repeat CXR 11/17/17-slight progression of left basilar pneumonia Continues to have shortness of breath this morning, with expiratory wheezes Lungs are diminished with expiratory wheezing, prolonged expiratory phase, and some mild conversational dyspnea with prolonged conversation, however, patient remains on 5 L nasal cannula reports that he is on 4 L NC at baseline No Leukocytosis noted, WBC 7.6 today-11/17/17, has remained afebrile greater than 48 hours and remains hemodynamically stable Continue Rocephin and azithromycin BiPAP when necessary and at night IV steroids Continue aerosols every 4 hours scheduled Daily labs Respiratory support per nasal cannula, titrate to maintain SPO2 greater than 92% RIP positive for parainfluenza 3 Legionella antigen, strep pneumo antigen negative Mycoplasma pending Qualifiers: Pneumonia type: due to Pneumococcus Laterality: left Lung location: lower lobe of lung Qualified Code(s): J13 - Pneumonia due to Streptococcus pneumoniae (2) Acute exacerbation of chronic obstructive airways disease Current Visit: Yes Status: Acute Assessment and plan: Acute exacerbation of COPD Continuing to have dyspnea, cough, and expiratory wheezing diminished breath sounds with expiratory wheezing throughout, prolonged expiratory phase Continue Aerosols every 4 hours scheduled Continue IV steroids, increase dose to 60mg q6hr BiPAP at night and PRN (3) Essential hypertension Current Visit: No Status: Chronic Assessment and plan: History of HTN, BP remains stable today, 11/17/17, continue home anti-HTN medications. (4) Pulmonary embolism Current Visit: No Status: Chronic Assessment and plan: H/O PE, Continue Xarelto Qualifiers: Pulmonary embolism type: other Chronicity: acute Acute cor pulmonale presence: without acute cor pulmonale Qualified Code(s): I26.99 - Other pulmonary embolism without acute cor pulmonale (5) Acute on chronic respiratory failure with hypercapnia Current Visit: Yes Status: Acute Assessment and plan: PCO2 67 on admission Patient with home BiPAP, unclear of degree of compliance Continue BiPAP at night and PRN See further assessment and plan above (6) Aspiration into airway Current Visit: Yes Status: Acute Assessment and plan: Patient had an episode of aspiration into airway while eating lunch this afternoon Rapid response called, patient status now improving. Repeat CXR obtained, no foreign body noted in the airway. Please see event note for details Now resting on high flow nasal cannula, continue BiPAP when necessary Monitor vitals hourly Received a double dose of DuoNeb's, then 2 minutes hourly 2 then every 4 as previously scheduled Qualifiers: Encounter type: initial encounter Qualified Code(s): T17.908A - Unspecified foreign body in respiratory tract, part unspecified causing other injury, initial encounter - Time Spent With Patient Total time spent is greater than 50% in coordination of care (as documented) at patient's floor/unit and/or counseling patient: Greater than 35 minutes - Subjective Interval history: Patient seen and examined at bedside this morning. C/O cough, productive of thin sputum, unalbe to describe color. also, c/o wheezing. Also continuing to report shortness of breath but he reports that he feels like his close to his baseline respiratory status.. Denies any fever, chills - Constitutional Vitals: Temp Pulse Resp BP Pulse Ox 96.8 F L 103 28 175/87 98 11/17/17 11:31 11/17/17 13:57 11/17/17 13:57 11/17/17 13:57 11/17/17 13:57 General appearance: Present: mild distress, A&O X 3 - Head Head exam: Present: atraumatic, normocephalic - Eye Eye exam: Present: PERRL, conjuntiva pink, sclera anicteric Pupils: Present: PERRL - Neck Neck exam general surgery: Present: supple, trachea midline. Absent: lymphadenopathy - Respiratory Respiratory exam: Present: decreased breath sounds, CTAB, prolonged expiratory phase, respiratory distress (Mild respiratory distress), wheezes (Expiratory wheezing throughout). Absent: accessory muscle use, chest wall tenderness, rales, rhonchi - Cardiovascular Cardiovascular exam: Present: RRR, +S1, +S2. Absent: diastolic murmur, gallop, rubs, systolic murmur - GI/Abdominal GI/Abdominal exam: Present: normal bowel sounds, soft, no peritoneal signs. Absent: distended, firm, guarding, rigid, tenderness - Extremities Exam Extremities exam: Present: warm, radial pulses palpable and symmetrical. Absent : calf tenderness, cyanotic, pedal edema - Neurological Exam Neurological exam: Present: CN II-XII intact, oriented X3, no focal deficits. Absent: pronater drift, facial droop, speech deficit - Skin Skin exam: Present: dry, intact Internal Medicine: Result - Labs CBC & Chem 7: 11/17/17 05:47 11/17/17 05:47 Labs: Short CBC 11/17/17 Range/Units 05:47 WBC 7.6 (4.3-11.1) K/mcL Hgb 11.8 L (12.9-16.9) g/dL Hct 35.9 L (37.5-50.1) % Plt Count 400 (140-400) K/mcL Neutrophils # 6.7 (1.6-8.9) K/mcL BMP 11/17/17 05:47 Sodium 132 L Potassium 4.2 Chloride 92 L Carbon Dioxide 32 H BUN 21 H Creatinine 0.48 L Glucose 204 H Calcium 9.6 - ABG Interpretation ABG results: ABG ABG pH 7.33 pH Units (7.32-7.45) 11/17/17 13:38 ABG pCO2 66 mmHg (35-45) H 11/17/17 13:38 ABG pO2 114 mmHg (85-104) H 11/17/17 13:38 ABG O2 Saturation 98 % (95-98) 11/17/17 13:38 PT/INR, D-dimer PT 11.1 Seconds (9.4-12.1) 11/14/17 01:32 - Impressions Impressions Chest X-Ray 11/17/17 06:00 IMPRESSION: Slight progression of left basilar atelectasis or pneumonia. D/ / Ramy Huber MD / Ramy Huber MD Interpreting Provider: Ramy Huber MD Chest X-Ray 11/17/17 13:23 IMPRESSION: Persistent left lower lobe pneumonia. D/ / Sulaiman Campbell MD / Sulaiman Campbell MD Interpreting Provider: Sulaiman Campbell MD Consult Discharge Plan - Plan Referrals: Marilyn Rojas, [employer]LECT[employer] TECHNICIAN [Primary Care Provider] -
[2017-11-17] MEDS: methylPREDNISolone 125 MG/2 ML VIAL IVP SCH ×2 (17:21→23:00)
[2017-11-17] MEDS: cefTRIAXone 2,000 MG in Water for inj. (sterile) 20 ML 20 ML IVP SCH (17:24)
[2017-11-17] MEDS: Azithromycin 500 MG in D5% in Water 250 ML IVPB SCH (17:27)
[2017-11-17] MEDS ORDERED: Aspirin 81 MG TAB.CHEW PO ONE (22:48)
[2017-11-18 01:50] LABS: Basophils % 0.1 %; Hematocrit 35.1 % (37.5-50.1); Hemoglobin 11.4 g/dL (12.9-16.9); Immature Granulocytes % 0.6 % (0-4); Lymphocytes # 0.9 K/mcL (0.6-4.6); Lymphocytes % 6.8 %; Mean Corpuscular HGB Conc 32.5 g/dL (31.6-35.5); Mean Corpuscular Hemoglobin 28.3 pg (28.0-33.3); Mean Corpuscular Volume 87.1 fL (83.0-100.0); Mean Platelet Volume 9.3 fL (9.4-12.4); Monocytes # 0.1 K/mcL (0.0-1.3); Neutrophils # 11.6 K/mcL (1.6-8.9); Platelet Count 373 K/mcL (140-400); Red Blood Count 4.03 M/mcL (4.19-5.50); Red Cell Distribution Width 14.8 % (11.5-14.5); Segmented Neutrophils % 91.5 %
[2017-11-18 02:05] LABS: BUN/Creatinine Ratio 44 (6-26); Blood Urea Nitrogen 24 mg/dL (6-20); Calcium 9.7 mg/dL (8.6-10.3); Carbon Dioxide 32 mEq/L (23-29); Chloride 93 mEq/L (98-107); Glucose 128 mg/dL (70-105); Osmolality,Calculated 286 (280-300); Potassium 4.3 mEq/L (3.5-5.1); Sodium 135 mEq/L (136-145); eGFR For African Americans > 60 (> 60); eGFR For Non-African Americans > 60 (> 60)
[2017-11-18] MEDS: Ipratropium/Albuterol Neb 3 ML IH SCH ×6 (03:32→23:24)
[2017-11-18] MEDS: methylPREDNISolone 125 MG/2 ML VIAL IVP SCH ×3 (06:18→17:30)
--- NOTE | 2017-11-18 07:37 | Internal Med Progress Note ---
Date of Encounter: 11/17/17 Time of Encounter: 19:20 - Assessment and plan (1) Acute exacerbation of chronic obstructive airways disease Current Visit: Yes Status: Acute (2) Pneumonia Current Visit: Yes Status: Acute Qualifiers: Pneumonia type: due to Pneumococcus Laterality: left Lung location: lower lobe of lung Qualified Code(s): J13 - Pneumonia due to Streptococcus pneumoniae (3) Essential hypertension Current Visit: No Status: Chronic (4) Pulmonary embolism Current Visit: No Status: Chronic Qualifiers: Pulmonary embolism type: other Chronicity: acute Acute cor pulmonale presence: without acute cor pulmonale Qualified Code(s): I26.99 - Other pulmonary embolism without acute cor pulmonale (5) Acute on chronic respiratory failure with hypercapnia Current Visit: Yes Status: Acute (6) Aspiration into airway Current Visit: Yes Status: Acute Qualifiers: Encounter type: initial encounter Qualified Code(s): T17.908A - Unspecified foreign body in respiratory tract, part unspecified causing other injury, initial encounter - Time Spent With Patient Total time spent is greater than 50% in coordination of care (as documented) at patient's floor/unit and/or counseling patient: - Subjective Interval history: Rapid response was called on patient at about 7:30PM patient was found to be choking on ice cream and face had turned dusky. Upon arrival to the patient's room oxygen saturation was 93% and patient was on 10 L nasal cannula high flow and continued to cough. Within about 10 minutes, patient's coughing fit resolved and nasal cannula was decreased to 6 L high flow. Patient was breathing well and sating at 96%. XCR was obtained which was stable. Head CT was negative. Patient was made NPO until speech could reevaluate. - Constitutional Vitals: Temp Pulse Resp BP Pulse Ox 96.5 F L 67 18 109/64 97 11/18/17 06:44 11/18/17 06:44 11/18/17 06:44 11/18/17 06:44 11/18/17 06:44 General appearance: Present: mild distress, A&O X 3 Internal Medicine: Result - Labs CBC & Chem 7: 11/18/17 01:24 11/18/17 01:24 Labs: Short CBC 11/18/17 Range/Units 01:24 WBC 12.7 H D (4.3-11.1) K/mcL Hgb 11.4 L (12.9-16.9) g/dL Hct 35.1 L (37.5-50.1) % Plt Count 373 (140-400) K/mcL Neutrophils # 11.6 H (1.6-8.9) K/mcL BMP 11/18/17 01:24 Sodium 135 L Potassium 4.3 Chloride 93 L Carbon Dioxide 32 H BUN 24 H Creatinine 0.55 L Glucose 128 H Calcium 9.7 - ABG Interpretation ABG results: ABG ABG pH 7.33 pH Units (7.32-7.45) 11/17/17 13:38 ABG pCO2 66 mmHg (35-45) H 11/17/17 13:38 ABG pO2 114 mmHg (85-104) H 11/17/17 13:38 ABG O2 Saturation 98 % (95-98) 11/17/17 13:38 PT/INR, D-dimer PT 11.1 Seconds (9.4-12.1) 11/14/17 01:32 - Impressions Impressions Chest X-Ray 11/17/17 13:23 IMPRESSION: Persistent left lower lobe pneumonia. D/ / Sulaiman Campbell MD / Sulaiman Campbell MD Interpreting Provider: Sulaiman Campbell MD Chest X-Ray 11/17/17 19:41 IMPRESSION: Patchy left basilar infiltrate consistent with pneumonia. Otherwise stable chest. D/ / Bob Farah MD / Bob Farah MD Interpreting Provider: Bob Farah MD Head CT 11/17/17 19:41 IMPRESSION: No acute intracranial abnormality. Again identified is subcortical and periventricular white matter disease which could represent chronic ischemic microvascular changes. Given the patient's relatively young age, demyelinating disease or vasculitis could be considered. Bilateral ethmoid sinus disease. Small amount of fluid in the right maxillary sinus. Correlation for acute sinusitis is recommended. D/ / Zelda Barkley Cha, MD / Zelda Barkley Cha, MD Interpreting Provider: Zelda Barkley Cha, MD Consult Discharge Plan - Plan Referrals: Marilyn Rojas CNP [Primary Care Provider] -
--- NOTE | 2017-11-18 07:39 | Event Note ---
Date of Encounter: 11/17/17 Time of Encounter: 19:00 Rapid response was called on patient at about 7:30PM patient was found to be choking on ice cream and face had turned dusky purple. Upon arrival to the patient's room oxygen saturation was 93% and patient was on 10 L nasal cannula high flow and continued to cough. Respiratory therapy help with think mucous secretions. Within about 10 minutes, patient's coughing fit resolved and nasal cannula was decreased to 6 L high flow. Patient was breathing well and sating at 96%. XCR was obtained which was stable. Head CT was negative. Patient was made NPO until speech could reevaluate.
[2017-11-18] MEDS: Budesonide Neb 0.5 MG/2 ML IH SCH ×2 (07:50→19:51)
[2017-11-18] MEDS: Fluticasone Propionate Nasal 50 MCG/SPRAY BOTTLE NS SCH (09:37)
[2017-11-18] MEDS: Loratadine 10 MG TABLET PO SCH (10:46)
[2017-11-18] MEDS: (Roflumilast [Daliresp] 500 MCG) PO SCH (10:47)
[2017-11-18] MEDS: Furosemide 20 MG TABLET PO SCH ×3 (10:47→20:34)
[2017-11-18] MEDS: *HR* Rivaroxaban 10 MG TABLET PO SCH (10:47)
[2017-11-18] MEDS ORDERED: Piperacillin/Tazobactam 3.375 GM in 0.9 % Sodium Chloride Mini Bag 100 ML IVPB SCH (11:48)
--- NOTE | 2017-11-18 15:16 | Internal Med Progress Note ---
Date of Encounter: 11/18/17 Time of Encounter: 15:09 - Assessment and plan (1) Pneumonia Current Visit: Yes Status: Acute Assessment and plan: Presented with increasing shortness of breath above baseline Has history of COPD-acute exacerbation of COPD in the setting of pneumonia Also has history of recent pneumonia diagnosis. CXR 11/06/17 shows left lower and middle lobe pneumonia, unclear if a bacterial or viral Repeat CXR 11/13/17 shows ill-defined airspace opacities in the left mid to lower lobe without significant changes Repeat CXR 11/17/17-slight progression of left basilar pneumonia Patient had 2 events yesterday of aspiration of food As of increasing shortness of breath with work of breathing since, now on 6 L nasal cannula Lungs are diminished with expiratory wheezing, prolonged expiratory phase, and some mild conversational dyspnea with prolonged conversation Continue Rocephin, add metronidazole with concerns for aspiration PNA after two events yesterday involving choking on his food Leukocytosis noted on todays labs with a WBC of 12.7, monitor labs closely BiPAP when necessary and at night continue IV steroids Continue aerosols every 4 hours scheduled Daily labs Respiratory support per nasal cannula, titrate to maintain SPO2 greater than 92% RIP positive for parainfluenza 3 Legionella antigen, strep pneumo antigen negative Qualifiers: Pneumonia type: due to Pneumococcus Laterality: left Lung location: lower lobe of lung Qualified Code(s): J13 - Pneumonia due to Streptococcus pneumoniae (2) Acute exacerbation of chronic obstructive airways disease Current Visit: Yes Status: Acute Assessment and plan: Acute exacerbation of COPD Increasing dyspnea, cough, and expiratory wheezing day diminished breath sounds with expiratory wheezing throughout, prolonged expiratory phase Continue Aerosols every 4 hours scheduled Continue IV steroids 60mg q6hr BiPAP at night and PRN (3) Essential hypertension Current Visit: No Status: Chronic Assessment and plan: History of HTN, BP remains stable today, 11/18/17, continue home anti-HTN medications. (4) Pulmonary embolism Current Visit: No Status: Chronic Assessment and plan: H/O PE, Continue Xarelto Qualifiers: Pulmonary embolism type: other Chronicity: acute Acute cor pulmonale presence: without acute cor pulmonale Qualified Code(s): I26.99 - Other pulmonary embolism without acute cor pulmonale (5) Acute on chronic respiratory failure with hypercapnia Current Visit: Yes Status: Acute Assessment and plan: PCO2 67 on admission Patient with home BiPAP, unclear of degree of compliance Continue BiPAP at night and PRN See further assessment and plan above (6) Aspiration into airway Current Visit: Yes Status: Acute Assessment and plan: Patient had an episode of aspiration into airway while eating yesterday afternoon And again yesterday evening patient had additional episode of aspiration into airway with dinner Speech therapy consult, recommends mechanically altered diet with thin liquids Recent modified barium swallow in August 2017 showed no concerns at that time Continue closely monitor Elevate head of bed with meals Qualifiers: Encounter type: initial encounter Qualified Code(s): T17.908A - Unspecified foreign body in respiratory tract, part unspecified causing other injury, initial encounter - Time Spent With Patient Total time spent is greater than 50% in coordination of care (as documented) at patient's floor/unit and/or counseling patient: 25 - 35 minutes - Subjective Interval history: Patient seen and examined at bedside this morning. Continuing to have cough, productive of thin sputum and wheezing. Reporting that his shortness of breath is about the same as yesterday. Was noted to have two events of aspiration yesterday while eating lunch and dinner. Also continuing to report shortness of breath but he reports that he feels like he is close to his baseline respiratory status. Denies any fever, chills - Constitutional Vitals: Temp Pulse Resp BP Pulse Ox 98.2 F 71 17 125/79 93 11/18/17 10:46 11/18/17 10:46 11/18/17 10:46 11/18/17 10:46 11/18/17 10:46 General appearance: Present: mild distress, A&O X 3 Internal Medicine: Result - Labs CBC & Chem 7: 11/18/17 01:24 11/18/17 01:24 Labs: Short CBC 11/18/17 Range/Units 01:24 WBC 12.7 H D (4.3-11.1) K/mcL Hgb 11.4 L (12.9-16.9) g/dL Hct 35.1 L (37.5-50.1) % Plt Count 373 (140-400) K/mcL Neutrophils # 11.6 H (1.6-8.9) K/mcL BMP 11/18/17 01:24 Sodium 135 L Potassium 4.3 Chloride 93 L Carbon Dioxide 32 H BUN 24 H Creatinine 0.55 L Glucose 128 H Calcium 9.7 - ABG Interpretation ABG results: ABG ABG pH 7.33 pH Units (7.32-7.45) 11/17/17 13:38 ABG pCO2 66 mmHg (35-45) H 11/17/17 13:38 ABG pO2 114 mmHg (85-104) H 11/17/17 13:38 ABG O2 Saturation 98 % (95-98) 11/17/17 13:38 PT/INR, D-dimer PT 11.1 Seconds (9.4-12.1) 11/14/17 01:32 - Impressions Impressions Chest X-Ray 11/17/17 19:41 IMPRESSION: Patchy left basilar infiltrate consistent with pneumonia. Otherwise stable chest. D/ / Bob Farah MD / Bob Farah MD Interpreting Provider: Bob Farah MD Head CT 11/17/17 19:41 IMPRESSION: No acute intracranial abnormality. Again identified is subcortical and periventricular white matter disease which could represent chronic ischemic microvascular changes. Given the patient's relatively young age, demyelinating disease or vasculitis could be considered. Bilateral ethmoid sinus disease. Small amount of fluid in the right maxillary sinus. Correlation for acute sinusitis is recommended. D/ / Zelda Barkley Cha, MD / Zelda Barkley Cha, MD Interpreting Provider: Zelda Barkley Cha, MD Consult Discharge Plan - Plan Referrals: Marilyn Rojas INSURANCE AND BENEFITS CLERK [Primary Care Provider] -
[2017-11-18] MEDS: MetroNIDAZOLE 500 MG/100 ML 500 MG/100 ML BAG IVPB SCH (15:59)
[2017-11-18 17:54] LABS: Mycoplasma pneumoniae IgG 0.11 U/L (<=0.09)
[2017-11-19] MEDS: MetroNIDAZOLE 500 MG/100 ML 500 MG/100 ML BAG IVPB SCH ×3 (00:25→16:40)
[2017-11-19] MEDS: methylPREDNISolone 125 MG/2 ML VIAL IVP SCH ×2 (00:26→05:16)
[2017-11-19] MEDS: Ipratropium/Albuterol Neb 3 ML IH SCH ×6 (03:46→23:24)
[2017-11-19] MEDS: Budesonide Neb 0.5 MG/2 ML IH SCH ×2 (08:31→19:42)
[2017-11-19] MEDS: Fluticasone Propionate Nasal 50 MCG/SPRAY BOTTLE NS SCH (08:50)
[2017-11-19] MEDS: cefTRIAXone 1,000 MG in Water for inj. (sterile) 20 ML 10 ML IVP SCH (08:51)
[2017-11-19] MEDS: Furosemide 20 MG TABLET PO SCH ×3 (08:51→20:00)
[2017-11-19] MEDS: Loratadine 10 MG TABLET PO SCH (08:51)
[2017-11-19] MEDS: *HR* Rivaroxaban 10 MG TABLET PO SCH (08:51)
[2017-11-19] MEDS: (Roflumilast [Daliresp] 500 MCG) PO SCH (09:59)
[2017-11-19 10:36] LABS: BUN/Creatinine Ratio 46 (6-26); Blood Urea Nitrogen 26 mg/dL (6-20); Calcium 9.1 mg/dL (8.6-10.3); Carbon Dioxide 32 mEq/L (23-29); Chloride 96 mEq/L (98-107); Glucose 206 mg/dL (70-105); Osmolality,Calculated 289 (280-300); Potassium 4.2 mEq/L (3.5-5.1); Sodium 134 mEq/L (136-145); eGFR For African Americans > 60 (> 60); eGFR For Non-African Americans > 60 (> 60)
[2017-11-19 10:38] LABS: Hematocrit 33.2 % (37.5-50.1); Hemoglobin 10.8 g/dL (12.9-16.9); Immature Granulocytes % 0.4 % (0-4); Lymphocytes # 0.4 K/mcL (0.6-4.6); Lymphocytes % 4.4 %; Mean Corpuscular HGB Conc 32.5 g/dL (31.6-35.5); Mean Corpuscular Hemoglobin 29.3 pg (28.0-33.3); Mean Platelet Volume 9.8 fL (9.4-12.4); Monocytes # 0.2 K/mcL (0.0-1.3); Monocytes % 1.6 %; Neutrophils # 8.7 K/mcL (1.6-8.9); Platelet Count 366 K/mcL (140-400); Red Blood Count 3.69 M/mcL (4.19-5.50); Red Cell Distribution Width 14.6 % (11.5-14.5); Segmented Neutrophils % 93.6 %
[2017-11-19] MEDS ORDERED: MethylPREDNISolone 40 MG/ML VIAL IVP SCH (12:00)
--- NOTE | 2017-11-19 12:21 | Internal Med Progress Note ---
Date of Encounter: 11/19/17 Time of Encounter: 12:19 - Assessment and plan (1) Pneumonia Current Visit: Yes Status: Acute Assessment and plan: PNA organims; parainfluenza 3 Presented with increasing shortness of breath above baseline Has history of COPD-acute exacerbation of COPD in the setting of pneumonia Also has history of recent pneumonia diagnosis. CXR 11/06/17 shows left lower and middle lobe pneumonia, unclear if a bacterial or viral Repeat CXR 11/13/17 shows ill-defined airspace opacities in the left mid to lower lobe without significant changes Repeat CXR 11/17/17-slight progression of left basilar pneumonia shortness of breath improving overnight now on 4lnc and BiPAP PRN Lungs are diminished with fine expiratory wheezing, prolonged expiratory phase, this is likely the patients baseline RIP positive for parainfluenza 3 Legionella antigen, strep pneumo antigen negative Continue Rocephin, add metronidazole with concerns for possible aspiration PNA after two events of aspiration on 11/17/17 Leukocytosis noted on 11/17/17 resolved WBC 9.3 today, cont to monitor labs closely BiPAP PRN and at night d/c iv steroids, change to oral steroids 40mg daily Continue aerosols every 4 hours scheduled Daily labs Respiratory support per nasal cannula, titrate to maintain SPO2 greater than 92% Qualifiers: Pneumonia type: due to Pneumococcus Laterality: left Lung location: lower lobe of lung Qualified Code(s): J13 - Pneumonia due to Streptococcus pneumoniae (2) Acute exacerbation of chronic obstructive airways disease Current Visit: Yes Status: Acute Assessment and plan: Acute exacerbation of COPD secondary to parainfluenza 3 reports that his shortness of breath is improving today Continues to have diminished breath sounds with fine expiratory wheezing throughout, and a prolonged expiratory phase but appears to have improved overnight Continue Aerosols every 4 hours scheduled change steroids to 40mg oral daily consider d/c tomorrow if stable overnight BiPAP at night and PRN (3) Essential hypertension Current Visit: No Status: Chronic Assessment and plan: History of HTN, BP remains stable today, 11/19/17, continue home anti-HTN medications (4) Pulmonary embolism Current Visit: No Status: Chronic Assessment and plan: H/O PE, taking Xarelto Qualifiers: Pulmonary embolism type: other Chronicity: acute Acute cor pulmonale presence: without acute cor pulmonale Qualified Code(s): I26.99 - Other pulmonary embolism without acute cor pulmonale (5) Acute on chronic respiratory failure with hypercapnia Current Visit: Yes Status: Acute Assessment and plan: PCO2 67 on admission Patient with home BiPAP, unclear of degree of compliance Continue BiPAP at night and PRN See further assessment and plan above (6) Aspiration into airway Current Visit: Yes Status: Acute Assessment and plan: Patient had 2 episodes of aspiration into the airway on 11/06 Speech therapy consult, recommends mechanically altered diet with thin liquids tolerating diet without any additional aspiration events Recent modified barium swallow in August 2017 showed no concerns at that time Continue closely monitor Elevate head of bed with meals Qualifiers: Encounter type: initial encounter Qualified Code(s): T17.908A - Unspecified foreign body in respiratory tract, part unspecified causing other injury, initial encounter - Time Spent With Patient Total time spent is greater than 50% in coordination of care (as documented) at patient's floor/unit and/or counseling patient: 25 - 35 minutes - Subjective Interval history: Patient seen and examined at bedside this morning. Reports that his cough, shortness of breath and wheezing are improving. - Constitutional Vitals: Temp Pulse Resp BP Pulse Ox 97.9 F 68 12 121/76 98 11/19/17 11:10 11/19/17 11:10 11/19/17 11:30 11/19/17 11:10 11/19/17 11:30 General appearance: Present: mild distress, A&O X 3 - Head Head exam: Present: atraumatic, normocephalic - Eye Eye exam: Present: PERRL, conjuntiva pink, sclera anicteric Pupils: Present: PERRL - Neck Neck exam general surgery: Present: supple, trachea midline. Absent: lymphadenopathy - Respiratory Respiratory exam: Present: decreased breath sounds, CTAB, prolonged expiratory phase, wheezes (fine expiratory wheezes). Absent: accessory muscle use, chest wall tenderness, rales, respiratory distress, rhonchi, tachypnea - Cardiovascular Cardiovascular exam: Present: RRR, +S1, +S2. Absent: diastolic murmur, gallop, rubs, systolic murmur - GI/Abdominal GI/Abdominal exam: Present: normal bowel sounds, soft, no peritoneal signs. Absent: distended, tenderness - Extremities Exam Extremities exam: Present: normal capillary refill, normal inspection, warm, radial pulses palpable and symmetrical. Absent: calf tenderness, cyanotic, pedal edema, tenderness - Neurological Exam Neurological exam: Present: alert, oriented X3. Absent: pronater drift, facial droop, speech deficit - Skin Skin exam: Present: dry, intact Internal Medicine: Result - Labs CBC & Chem 7: 11/19/17 10:00 11/19/17 10:00 Labs: Short CBC 11/19/17 Range/Units 10:00 WBC 9.3 (4.3-11.1) K/mcL Hgb 10.8 L (12.9-16.9) g/dL Hct 33.2 L (37.5-50.1) % Plt Count 366 (140-400) K/mcL Neutrophils # 8.7 (1.6-8.9) K/mcL BMP 11/19/17 10:00 Sodium 134 L Potassium 4.2 Chloride 96 L Carbon Dioxide 32 H BUN 26 H Creatinine 0.57 L Glucose 206 H Calcium 9.1 - ABG Interpretation ABG results: ABG ABG pH 7.33 pH Units (7.32-7.45) 11/17/17 13:38 ABG pCO2 66 mmHg (35-45) H 11/17/17 13:38 ABG pO2 114 mmHg (85-104) H 11/17/17 13:38 ABG O2 Saturation 98 % (95-98) 11/17/17 13:38 PT/INR, D-dimer PT 11.1 Seconds (9.4-12.1) 11/14/17 01:32 Consult Discharge Plan - Plan Referrals: Marilyn Rojas, B[employer]ER AND WR[employer]PER PACKER [Primary Care Provider] -
[2017-11-19] MEDS: *HR* HYDROcodone/Acet 5/325 mg TABLET PO PRN (20:13)
[2017-11-20] MEDS: MetroNIDAZOLE 500 MG/100 ML 500 MG/100 ML BAG IVPB SCH ×2 (01:52→09:22)
[2017-11-20] MEDS: Ipratropium/Albuterol Neb 3 ML IH SCH ×3 (03:48→11:19)
[2017-11-20 04:30] LABS: Eosinophils % 0.1 %; Hematocrit 34.4 % (37.5-50.1); Immature Granulocytes % 0.4 % (0-4); Lymphocytes # 1.1 K/mcL (0.6-4.6); Lymphocytes % 15.9 %; Mean Corpuscular Hemoglobin 28.9 pg (28.0-33.3); Mean Corpuscular Volume 90.5 fL (83.0-100.0); Mean Platelet Volume 9.6 fL (9.4-12.4); Monocytes # 0.5 K/mcL (0.0-1.3); Monocytes % 7.9 %; Platelet Count 343 K/mcL (140-400); Red Cell Distribution Width 14.6 % (11.5-14.5); Segmented Neutrophils % 75.7 %
[2017-11-20 05:48] LABS: BUN/Creatinine Ratio 41 (6-26); Blood Urea Nitrogen 21 mg/dL (6-20); Calcium 8.8 mg/dL (8.6-10.3); Carbon Dioxide 31 mEq/L (23-29); Chloride 96 mEq/L (98-107); Glucose 132 mg/dL (70-105); Osmolality,Calculated 287 (280-300); Potassium 3.7 mEq/L (3.5-5.1); Sodium 136 mEq/L (136-145); eGFR For African Americans > 60 (> 60); eGFR For Non-African Americans > 60 (> 60)
[2017-11-20] MEDS: Budesonide Neb 0.5 MG/2 ML IH SCH (07:16)
[2017-11-20] MEDS ORDERED: predniSONE 20 MG TABLET PO SCH (09:00)
[2017-11-20] MEDS: Loratadine 10 MG TABLET PO SCH (09:21)
[2017-11-20] MEDS: Furosemide 20 MG TABLET PO SCH (09:21)
[2017-11-20] MEDS: *HR* Rivaroxaban 10 MG TABLET PO SCH (09:21)
[2017-11-20] MEDS: *HR* HYDROcodone/Acet 5/325 mg TABLET PO PRN (09:21)
[2017-11-20] MEDS: cefTRIAXone 1,000 MG in Water for inj. (sterile) 20 ML 10 ML IVP SCH (09:22)
[2017-11-20] MEDS: Fluticasone Propionate Nasal 50 MCG/SPRAY BOTTLE NS SCH (09:23)
[2017-11-20] MEDS: (Roflumilast [Daliresp] 500 MCG) PO SCH (10:30)
[2017-11-20] MEDS: DULERA IH SCH (10:39)
[2017-11-20] MEDS: [UNRECOGNIZED DRUG - OTHER] IH SCH (10:39)
[2017-11-20] MEDS: (Umeclidinium Bromide [Incruse Ellipta] 62.5 MCG) IH SCH (10:39)
[2017-11-20 11:40] VITALS: BP 113/59
--- NOTE | 2017-11-20 12:32 | Discharge Summary ---
- NOTES TO OUTPATIENT PROVIDER Notes to Outpatient Provider: Admitted with AECOPD, and viral PNA, with parainfluenza. Chronicaly on O2 2L. discharged on 2 L nasal cannula, respiratory status steadily progressing back to baseline. No pending studies upon discharge. Discharged with home health services. Instructed to follow-up with PCP within 1 week of discharge Orders not resulted at time of discharge: Pending orders 11/20/17 08:18 XR chest 1V portable [XR] Routine 11/21/17 04:00 Basic Metabolic Panel AM 0400 Complete Blood Count [HEME] AM 0400 11/22/17 04:00 Basic Metabolic Panel AM 0400 Complete Blood Count [HEME] AM 0400 Date of Encounter: 11/20/17 Time of Encounter: 12:11 - Discharge Diagnosis (1) Pneumonia Priority: Primary Status: Acute Assessment and Plan: PNA organims; parainfluenza 3 Presented with increasing shortness of breath above baseline Has history of COPD-acute exacerbation of COPD in the setting of viral pneumonia Also has history of recent pneumonia diagnosis. CXR 11/06/17 shows left lower and middle lobe pneumonia, unclear if a bacterial or viral Repeat CXR 11/13/17 shows ill-defined airspace opacities in the left mid to lower lobe without significant changes Repeat CXR 11/17/17-slight progression of left basilar pneumonia shortness of breath improving overnight now on 4lnc which is baseline and BiPAP PRN Lungs are clear/diminished throughout today Discharged on oral steroids for a 5 day course Continue home COPD medications Wear oxygen continuously at discharge Qualifiers: Pneumonia type: due to Pneumococcus Laterality: left Lung location: lower lobe of lung Qualified Code(s): J13 - Pneumonia due to Streptococcus pneumoniae (2) Acute exacerbation of chronic obstructive airways disease Priority: Primary Status: Acute Assessment and Plan: Acute exacerbation of COPD secondary to parainfluenza 3 reports that his shortness of breath is improving today Continues to have diminished breath sounds with fine expiratory wheezing throughout, and a prolonged expiratory phase but appears to have improved overnight Continue Aerosols every 4 hours scheduled change steroids to 40mg oral daily consider d/c tomorrow if stable overnight BiPAP at night and PRN (3) Essential hypertension Priority: Secondary Status: Chronic (4) Pulmonary embolism Priority: Secondary Status: Chronic Qualifiers: Pulmonary embolism type: other Chronicity: acute Acute cor pulmonale presence: without acute cor pulmonale Qualified Code(s): I26.99 - Other pulmonary embolism without acute cor pulmonale (5) Acute on chronic respiratory failure with hypercapnia Priority: Secondary Status: Acute (6) Aspiration into airway Priority: Secondary Status: Acute Qualifiers: Encounter type: initial encounter Qualified Code(s): T17.908A - Unspecified foreign body in respiratory tract, part unspecified causing other injury, initial encounter Hospital course: Mr. Blanchard is a 57 year old male presents with progressive worsening dyspnea. Has had uts of pneumonia. Prior to admission patient reports that he was getting pulse oximeter readings at 80% while at home. Clinically the patient is on 4 L nasal cannula however, he was still hypoxic on 4 L since his admitted for COPD exacerbation. During admission was found to have pneumonia. Respiratory infection panel reveals parainfluenza 3 viral pneumonia. Throughout the hospital course the patient continued to have shortness of breath , and coarse expiratory wheezing. He was treated with steroids and aerosols. During the stay the patient had 2 events of aspiration while eating. He is adentitious and attempted to eat an apple which he states he normally does at home, this prompted event of aspiration. He was prophylactically started on third generation cephalosporin and metronidazole due to risk for aspiration pneumonia. This was approximately 2 days prior to discharge. The patient has remained afebrile, hemodynamically stable. No leukocytosis noted on labs on day of discharge. Respiratory status dramatically improving this morning, lungs clear/diminished throughout without wheezing. He will be sent home with a five-day steroid course then he has to take 10 mg prednisone daily which he is on chronically. Additionally, he will be sent home on his current COPD medication regimen. Also, he is being discharged on cefdinir and metronidazole for additional 5 days. He is instructed to follow-up with his PCP within 1 week of discharge. Additionally, he has been instructed to return to the ED should his shortness of breath return or should he develop fever, chills, cough , chest pain. Patient verbalizes understanding. Denies any further questions at this time. Discharge discussed with: patient, nurse, social work, case management - Time Spent with Patient Total time spent providing and/or coordinating discharge services: Less than 30 minutes - Discharge Medications Prescriptions: Cefdinir [Omnicef] 300 mg PO BID 5 Days #10 capsule metroNIDAZOLE [Flagyl] 500 mg PO TID 5 Days #15 tablet predniSONE [PredniSONE] 40 mg PO DAILY 5 Days #20 tablet Home Medications: Docusate [Colace] 100 mg PO BID 07/25/17 [History] Ipratropium/Albuterol Neb [Duoneb] 3 ml IH Q4H PRN 07/25/17 [History] Oxygen 4 l NS AD 07/25/17 [History] Roflumilast [Daliresp] 500 mcg PO DAILY 07/25/17 [History] Metoprolol [Lopressor] 25 mg PO BID 09/10/17 [History] Acetaminophen [Tylenol] 650 mg PO Q6HR PRN tablet 09/20/17 [Rx] Albuterol Sulfate [Albuterol Inhaler] 2 puff IH Q4H PRN #1 inhaler 09/20/17 [Rx] Furosemide [Lasix] 40 mg PO TID #90 tab 09/20/17 [Rx] Mometasone/Formoterol [Dulera 200 Mcg/5 Mcg Inhaler] 2 puff IH BID #1 hfa.aer.ad 09/20/17 [Rx] Rivaroxaban [Xarelto] 20 mg PO DAILY #60 tablet 09/20/17 [Rx] Umeclidinium [place] [Incruse Ellipta] 62.5 mcg IH DAILY #1 blst.w.dev 09/20/17 [Rx] Omeprazole [PriLOSEC] 20 mg PO 0730 09/30/17 [History] Albuterol Neb [Proventil Neb] 2.5 mg IH Q6H PRN inhsol 11/09/17 [Rx] Loratadine [Claritin] 10 mg PO DAILY #30 tablet 11/09/17 [Rx] predniSONE [PredniSONE] 10 mg PO DAILY #27 tablet 11/09/17 [Rx] Budesonide Neb [Pulmicort Neb] 0.5 mg IH BIDRESP inhsol 11/14/17 [Rx] Cefdinir [Omnicef] 300 mg PO BID 5 Days #10 capsule 11/20/17 [Rx] metroNIDAZOLE [Flagyl] 500 mg PO TID 5 Days #15 tablet 11/20/17 [Rx] predniSONE [PredniSONE] 40 mg PO DAILY 5 Days #20 tablet 11/20/17 [Rx] Allergies/Adverse Reactions: 3 Allergy/AdvReac Type Severity Reaction Status Date / Time levofloxacin AdvReac Blurry Verified 11/13/17 19:34 Vision Date of admission: 11/16/17 16:00 Primary care physician: Marilyn Rojas CNP Discharging clinician: Toñito Paniagua Anticipated date of discharge: 11/20/17 - Constitutional Vitals: Temp Pulse Resp BP Pulse Ox 97.6 F 86 20 113/59 97 11/20/17 11:39 11/20/17 11:39 11/20/17 11:39 11/20/17 11:39 11/20/17 11:39 General appearance: Present: mild distress, A&O X 3 - Head Head exam: Present: atraumatic, normocephalic - Eye Eye exam: Present: PERRL, conjuntiva pink, sclera anicteric Pupils: Present: PERRL - Neck Neck exam general surgery: Present: supple, trachea midline. Absent: lymphadenopathy - Respiratory Respiratory exam: Present: decreased breath sounds, CTAB. Absent: accessory muscle use, rales, respiratory distress, rhonchi, wheezes, tachypnea - Cardiovascular Cardiovascular exam: Present: RRR, +S1, +S2. Absent: diastolic murmur, gallop, rubs, systolic murmur - GI/Abdominal GI/Abdominal exam: Present: normal bowel sounds, soft, no peritoneal signs. Absent: distended, tenderness - Extremities Exam Extremities exam: Present: warm, radial pulses palpable and symmetrical. Absent : calf tenderness, cyanotic, pedal edema - Neurological Exam Neurological exam: Present: CN II-XII intact, oriented X3, no focal deficits. Absent: pronater drift, facial droop, speech deficit - Skin Skin exam: Present: dry, intact - Patient Status Disposition: Home Health Service Condition: Fair Overall status at discharge: patient is progressing back to baseline - Discharge Instructions Instructions: Acute Respiratory Distress Syndrome (DC), Chronic Obstructive Pulmonary Disease (DC), Pneumonia (DC) Follow Up With: Marilyn Rojas CNP [Primary Care Provider] - 11/23/17 1:15 pm - Diet and Activity Activity: increase activity as tolerated, resume usual activities as tolerated Diet: advance to your usual diet
--- NOTE | 2017-11-20 14:25 | Physician Discharge Referral ---
Home Health/Hosp Referral Info Transfer to: Home Health Provider in Charge Post Discharge: PCP - Diagnosis (1) Pneumonia Priority: Primary Status: Acute (2) Acute exacerbation of chronic obstructive airways disease Priority: Secondary Status: Acute (3) Essential hypertension Priority: Secondary Status: Chronic (4) Pulmonary embolism Priority: Secondary Status: Chronic (5) Acute on chronic respiratory failure with hypercapnia Priority: Secondary Status: Acute (6) Aspiration into airway Priority: Secondary Status: Acute - Respiratory Orders Smoking Cessation: Smoking cessation has been advised. For more information, call the [place] Tobacco Quit Line at 3-552-DHYX-NOW. - Diet/Nutrition Diet/Nutrition Orders: Regular - Activity Activity Orders: Up ad harish, Ambulate - Services Needed Following services are medically necessary services: Home Health Aide - Transfer Medications Prescriptions: Cefdinir [Omnicef] 300 mg PO BID 5 Days #10 capsule metroNIDAZOLE [Flagyl] 500 mg PO TID 5 Days #15 tablet predniSONE [PredniSONE] 40 mg PO DAILY 5 Days #20 tablet Home Medications: Docusate [Colace] 100 mg PO BID 07/25/17 [History] Ipratropium/Albuterol Neb [Duoneb] 3 ml IH Q4H PRN 07/25/17 [History] Oxygen 4 l NS AD 07/25/17 [History] Roflumilast [Daliresp] 500 mcg PO DAILY 07/25/17 [History] Metoprolol [Lopressor] 25 mg PO BID 09/10/17 [History] Acetaminophen [Tylenol] 650 mg PO Q6HR PRN tablet 09/20/17 [Rx] Albuterol Sulfate [Albuterol Inhaler] 2 puff IH Q4H PRN #1 inhaler 09/20/17 [Rx] Furosemide [Lasix] 40 mg PO TID #90 tab 09/20/17 [Rx] Mometasone/Formoterol [Dulera 200 Mcg/5 Mcg Inhaler] 2 puff IH BID #1 hfa.aer.ad 09/20/17 [Rx] Rivaroxaban [Xarelto] 20 mg PO DAILY #60 tablet 09/20/17 [Rx] Umeclidinium [place] [Incruse Ellipta] 62.5 mcg IH DAILY #1 blst.w.dev 09/20/17 [Rx] Omeprazole [PriLOSEC] 20 mg PO 0730 09/30/17 [History] Albuterol Neb [Proventil Neb] 2.5 mg IH Q6H PRN inhsol 11/09/17 [Rx] Loratadine [Claritin] 10 mg PO DAILY #30 tablet 11/09/17 [Rx] predniSONE [PredniSONE] 10 mg PO DAILY #27 tablet 11/09/17 [Rx] Budesonide Neb [Pulmicort Neb] 0.5 mg IH BIDRESP inhsol 11/14/17 [Rx] Cefdinir [Omnicef] 300 mg PO BID 5 Days #10 capsule 11/20/17 [Rx] metroNIDAZOLE [Flagyl] 500 mg PO TID 5 Days #15 tablet 11/20/17 [Rx] predniSONE [PredniSONE] 40 mg PO DAILY 5 Days #20 tablet 11/20/17 [Rx] Allergies/Adverse Reactions: 3 Allergy/AdvReac Type Severity Reaction Status Date / Time levofloxacin AdvReac Blurry Verified 11/13/17 19:34 Vision Certification: Further, I certify that my clinical findings support that this patient is homebound (i.e. absences from home require considerable and taxing effort and are for medical reasons or denominational services or infrequently or short duration when for other reasons) because: Homebound Reason: Patient requires assistance of a person or device to safely leave home Attestation: My signature below is to certify that this patient is under my care and that I, or nurse practitioner, or a physician's assistant federal public defender working with me, has a face-to -face encounter with this patient.
[2017-11-21] MEDS ORDERED: (Roflumilast [Daliresp] 500 MCG) PO SCH (09:00)
[2017-11-21] MEDS ORDERED: (Umeclidinium Bromide [Incruse Ellipta] 62.5 MCG) IH SCH (09:00)
== END 2017-11-20 15:14 | disposition home health service (06) | DRG 140 ==
LOC: EMEROO 14:07 → 3BNU 14:07
PROVIDERS: ADMIT Internal Medicine Nephrology; ATTEND Internal Medicine Nephrology

== ENCOUNTER 2017-12-30 21:40 | Observation (INO) ==
--- NOTE | 2017-12-30 21:52 | Emergency Department Note ---
Disposition Clinical Impression: COPD exacerbation Disposition: Admitted As Inpatient Condition: Fair General Adult HPI - General Stated complaint: chest pain/PHYLLIS/nausea Time Seen by Provider: 12/30/17 21:47 - Related Data Home Medications Medication Instructions Recorded Confirmed Docusate [Colace] 100 mg PO BID 07/25/17 12/31/17 Ipratropium/Albuterol Neb [Duoneb] 3 ml IH Q4H PRN 07/25/17 12/31/17 Oxygen 4 l NS AD 07/25/17 12/31/17 Roflumilast [Daliresp] 500 mcg PO DAILY 07/25/17 12/31/17 Metoprolol [Lopressor] 25 mg PO BID 09/10/17 12/31/17 Omeprazole [PriLOSEC] 20 mg PO 0730 09/30/17 12/31/17 Previous Rx's Medication Instructions Recorded Acetaminophen [Tylenol] 650 mg PO Q6HR PRN tablet 09/20/17 Albuterol Sulfate [Albuterol 2 puff IH Q4H PRN #1 inhaler 09/20/17 Inhaler] Furosemide [Lasix] 40 mg PO TID #90 tab 09/20/17 Mometasone/Formoterol [Dulera 200 2 puff IH BID #1 hfa.aer.ad 09/20/17 Mcg/5 Mcg Inhaler] Rivaroxaban [Xarelto] 20 mg PO DAILY #60 tablet 09/20/17 Umeclidinium [place] [Incruse 62.5 mcg IH DAILY #1 blst.w.dev 09/20/17 Ellipta] Loratadine [Claritin] 10 mg PO DAILY #30 tablet 11/09/17 Budesonide Neb [Pulmicort Neb] 0.5 mg IH BIDRESP inhsol 11/14/17 Doxycycline 100 mg PO BID #14 capsule 12/09/17 predniSONE [PredniSONE] 10 mg PO DAILY #27 tablet 12/09/17 predniSONE [PredniSONE] 10 mg PO DAILY #30 tablet 12/09/17 Allergies Allergy/AdvReac Type Severity Reaction Status Date / Time levofloxacin AdvReac Blurry Verified 11/13/17 19:34 [facility] Past Medical History - Past Medical History Medical history: Reports: asthma, CHF, COPD, hyperlipidemia, hypertension, pulmonary embolus Surgical history: Reports: no surgical history Psychiatric history: Reports: anxiety, depression - Social History Smoking Status: Former smoker Smokeless Tobacco Status: No Alcohol use: Reports: rarely Drug use: Reports: none Course Vital Signs Temperature 97.0 F L 12/30/17 22:06 Pulse Rate 79 12/30/17 22:06 Respiratory Rate 23 12/30/17 22:06 Blood Pressure 118/79 12/30/17 22:06 O2 Sat by Pulse Oximetry 93 12/30/17 22:06 Temperature 98.7 F 12/31/17 01:39 Pulse Rate 99 12/31/17 01:39 Respiratory Rate 19 12/31/17 04:15 Blood Pressure 111/75 12/31/17 01:39 O2 Sat by Pulse Oximetry 96 12/31/17 04:15 Oxygen Delivery Oxygen Delivery Nasal Cannula Medical Decision Making - Lab Data Result diagrams: 12/31/17 05:38 12/31/17 05:38 Lab Results 12/30/17 12/30/17 Range/Units 22:20 22:20 WBC 8.1 (4.3-11.1) K/mcL RBC 4.21 (4.19-5.50) M/mcL Hgb 12.0 L (12.9-16.9) g/dL Hct 36.6 L (37.5-50.1) % MCV 86.9 (83.0-100.0) fL MCH 28.5 (28.0-33.3) pg MCHC 32.8 (31.6-35.5) g/dL RDW 14.2 (11.5-14.5) % Plt Count 315 (140-400) K/mcL MPV 9.6 (9.4-12.4) fL Immature Gran % 0.4 (0-4) % Seg Neutrophils % 89.8 % Lymphocytes % 7.7 % Monocytes % 1.1 % Eosinophils % 0.5 % Basophils % 0.5 % Neutrophils # 7.3 (1.6-8.9) K/mcL Lymphocytes # 0.6 (0.6-4.6) K/mcL Monocytes # 0.1 (0.0-1.3) K/mcL Eosinophils # 0.0 (0.0-0.6) K/mcL Basophils # 0.0 (0.0-0.2) K/mcL Platelet Estimate Normal (Normal) Sodium 138 (136-145) mEq/L Potassium 4.4 (3.5-5.1) mEq/L Chloride 95 L (98-107) mEq/L Carbon Dioxide 30 H (23-29) mEq/L BUN 17 (6-20) mg/dL Creatinine 0.72 (0.70-1.30) mg/dL Est GFR ( Amer) > 60 (> 60) Est GFR (Non-Af Amer) > 60 (> 60) BUN/Creatinine Ratio 24 (6-26) Glucose 113 H (70-105) mg/dL Calculated Osmolality 288 (280-300) Calcium 10.1 (8.6-10.3) mg/dL Troponin I < 0.03 (< 0.04) ng/mL Attestation Statement - Attestation Attestation: I examined this patient and my medical decision-making was reviewed with the Resident Physician. I agree with the documented findings, disposition and treatment plan as described except to the extent set forth below. [id number] time provided Patient presents with dyspnea and chest "tightness." States he has a history of COPD and this feels similar. He also has a history of PE and takes Xarelto. He is mildly dyspneic on exam
[2017-12-30] MEDS ORDERED: Ipratropium/Albuterol Neb 3 ML IH ONE (22:00)
[2017-12-30 22:34] LABS: Basophils % 0.5 %; Eosinophils % 0.5 %; Hematocrit 36.6 % (37.5-50.1); Immature Granulocytes % 0.4 % (0-4); Lymphocytes # 0.6 K/mcL (0.6-4.6); Lymphocytes % 7.7 %; Mean Corpuscular HGB Conc 32.8 g/dL (31.6-35.5); Mean Corpuscular Hemoglobin 28.5 pg (28.0-33.3); Mean Corpuscular Volume 86.9 fL (83.0-100.0); Mean Platelet Volume 9.6 fL (9.4-12.4); Monocytes # 0.1 K/mcL (0.0-1.3); Monocytes % 1.1 %; Neutrophils # 7.3 K/mcL (1.6-8.9); Platelet Count 315 K/mcL (140-400); Red Blood Count 4.21 M/mcL (4.19-5.50); Red Cell Distribution Width 14.2 % (11.5-14.5); Segmented Neutrophils % 89.8 %
[2017-12-30] MEDS ORDERED: predniSONE 20 MG TABLET PO ONE (22:49)
--- NOTE | 2017-12-30 22:51 | Emergency Department Note ---
Disposition Clinical Impression: COPD exacerbation Disposition: Admitted As Inpatient Condition: Fair Time of Disposition: 23:56 SOB HPI - General Chief Complaint: ED Shortness of Breath/Dyspnea Stated Complaint: chest pain/PHYLLIS/nausea Time Seen by Provider: 12/30/17 21:47 Source: patient Limitations: no limitations Nursing Notes Reviewed: Yes Vital Signs Reviewed: Yes - History of Present Illness 57-year-old male history of COPD on 4 L oxygen supplementation, recent diagnosis of pulmonary embolism on Xarelto presents an emergency department with cough difficulty breathing and chest pain. Patient was recently diagnosed with a pulmonary embolism and treated for pneumonia. States over the past few days he continues progressively worsening shortness of breath and productive cough. No fevers. He believes is his pneumonia coming back. He has been using his inhaler is without significant relief. He is currently on the steroid taper into 3 tablets today. Denies any G.I. bleed symptoms. His chest pain is midsternal reported as a heaviness. Pt Subjective Complaint: shortness of breath - Related Data Home Medications Medication Instructions Recorded Confirmed Docusate [Colace] 100 mg PO BID 07/25/17 11/29/17 Ipratropium/Albuterol Neb [Duoneb] 3 ml IH Q4H PRN 07/25/17 11/29/17 Oxygen 4 l NS AD 07/25/17 11/29/17 Roflumilast [Daliresp] 500 mcg PO DAILY 07/25/17 11/29/17 Metoprolol [Lopressor] 25 mg PO BID 09/10/17 11/29/17 Omeprazole [PriLOSEC] 20 mg PO 0730 09/30/17 11/29/17 Previous Rx's Medication Instructions Recorded Acetaminophen [Tylenol] 650 mg PO Q6HR PRN tablet 09/20/17 Albuterol Sulfate [Albuterol 2 puff IH Q4H PRN #1 inhaler 09/20/17 Inhaler] Furosemide [Lasix] 40 mg PO TID #90 tab 09/20/17 Mometasone/Formoterol [Dulera 200 2 puff IH BID #1 hfa.aer.ad 09/20/17 Mcg/5 Mcg Inhaler] Rivaroxaban [Xarelto] 20 mg PO DAILY #60 tablet 09/20/17 Umeclidinium [place] [Incruse 62.5 mcg IH DAILY #1 blst.w.dev 09/20/17 Ellipta] Loratadine [Claritin] 10 mg PO DAILY #30 tablet 11/09/17 Budesonide Neb [Pulmicort Neb] 0.5 mg IH BIDRESP inhsol 11/14/17 Doxycycline 100 mg PO BID #14 capsule 12/09/17 predniSONE [PredniSONE] 10 mg PO DAILY #27 tablet 12/09/17 predniSONE [PredniSONE] 10 mg PO DAILY #30 tablet 12/09/17 Allergies Allergy/AdvReac Type Severity Reaction Status Date / Time levofloxacin AdvReac Blurry Verified 11/13/17 19:34 [facility] All systems ED: reviewed and negative except as stated. Review of Systems: As Per HPI Constitutional: Denies: fever, chills Cardiovascular: Reports: chest pain Respiratory: Reports: cough, dyspnea, wheezes. Denies: hemoptysis Gastrointestinal: Denies: abdominal pain, nausea, vomiting Musculoskeletal: Denies: back pain Neurological: Denies: headache Past Medical History - Past Medical History Attestation: Yes The following information was validated with the patient. Source: patient Medical history: Reports: asthma, CHF, COPD, hyperlipidemia, hypertension, pulmonary embolus Surgical history: Reports: no surgical history Psychiatric history: Reports: anxiety, depression - Social History Smoking Status: Former smoker Smokeless Tobacco Status: No Alcohol use: Reports: rarely Drug use: Reports: none Physical Exam - General Limitations: no limitations General appearance: alert, in distress (Conversational dyspnea, wearing 4 liter nasal cannula), obese - Head Head exam: atraumatic, normocephalic, normal inspection - Eye Eye exam: Present: normal appearance, PERRL, EOMI - ENT ENT exam: normal exam, normal oropharynx, mucous membranes moist - Neck Neck exam: Present: normal inspection, full ROM, trachea midline - Chest Chest inspection: Present: normal inspection, symmetric chest wall rise. Absent : tenderness - Respiratory Respiratory exam: Present: respiratory distress, wheezes, accessory muscle use, prolonged expiratory phase - Expanded Respiratory Exam Location: wheezes: Right, Left, rales: Left, Right - Cardiovascular Cardiovascular exam: Present: regular rate, normal rhythm, normal heart sounds - Abdominal Exam Abdominal exam: Present: soft, Non-Tender. Absent: tenderness, distention, guarding, rebound, rigidity - Extremities Exam Extremities exam: Present: full ROM, tenderness (Left lower leg), normal capillary refill, other (Ecchymosis the left lower leg). Absent: pedal edema - Neurological Exam Neurological exam: Present: alert, oriented X3 - Psychiatric Psychiatric exam: Present: normal affect, normal mood - Skin Skin exam: Present: warm, dry, intact, normal color. Absent: rash, cyanosis, diaphoresis Course Course Narrative: Patient presents with worsening shortness of breath in some respiratory distress. Recent diagnosis of pneumonia. Persistent cough and gradual worsening of symptoms. He is on his baseline oxygen supplementation. On examination he has bilateral wheezing and crackles. Concerning for possible pneumonia versus COPD exacerbation. He also has some ecchymosis the left leg that he sustained after a bite fell on it 2 weeks ago. He has been able to ambulate without difficulty. He is also on Xarelto for recent diagnosis of pulmonary embolism. Chest pain workup initiated at this time. DuoNeb treatment ordered. He has Joey on steroids but is on a taper will load up with 40 mg additional. - Reevaluation(s) Reevaluation #1: Chest x-ray did not reveal any worsening pneumonia. Suspect this is likely COPD exacerbation. He did have improvement with the reading treatment. Wheezing has improved. Labs or otherwise unremarkable. Troponin less than 0.03. EKG did not reveal any acute ischemic changes. At this time patient will be admitted to the hospital service for COPD exacerbation. - Consultations Consultation #1: Spoke with on-call hospitalist jarvis Lara to admit for COPD exacerbation. X- ray did not reveal new pneumonia. We discussed initiating azithromycin. Vital Signs Temperature 97.0 F L 12/30/17 22:06 Pulse Rate 79 12/30/17 22:06 Respiratory Rate 23 12/30/17 22:06 Blood Pressure 118/79 12/30/17 22:06 O2 Sat by Pulse Oximetry 93 12/30/17 22:06 Temperature 97.0 F L 12/30/17 22:29 Pulse Rate 79 12/30/17 22:29 Respiratory Rate 24 12/30/17 22:57 Blood Pressure 118/79 12/30/17 22:29 O2 Sat by Pulse Oximetry 94 12/30/17 22:57 Oxygen Delivery Oxygen Delivery Nasal Cannula Shortness of Breath/Dyspnea - [facility] Narrative Medical decision making narrative: Patient was discussed with my attending physician who agrees with ED management and final disposition. They independently evaluated the patient. Please refer to their attestation to this encounter for additional information. This note was generated by [employer] voice recognition software and as a result grammatical or spelling errors may occur using this program. - Medical Records Medical records reviewed: Yes I reviewed the patient's medical records. - Lab Data Lab results reviewed: Yes I reviewed the patient's lab results. Result diagrams: 12/30/17 22:20 12/30/17 22:20 Lab Results 12/30/17 12/30/17 Range/Units 22:20 22:20 WBC 8.1 (4.3-11.1) K/mcL RBC 4.21 (4.19-5.50) M/mcL Hgb 12.0 L (12.9-16.9) g/dL Hct 36.6 L (37.5-50.1) % MCV 86.9 (83.0-100.0) fL MCH 28.5 (28.0-33.3) pg MCHC 32.8 (31.6-35.5) g/dL RDW 14.2 (11.5-14.5) % Plt Count 315 (140-400) K/mcL MPV 9.6 (9.4-12.4) fL Immature Gran % 0.4 (0-4) % Seg Neutrophils % 89.8 % Lymphocytes % 7.7 % Monocytes % 1.1 % Eosinophils % 0.5 % Basophils % 0.5 % Neutrophils # 7.3 (1.6-8.9) K/mcL Lymphocytes # 0.6 (0.6-4.6) K/mcL Monocytes # 0.1 (0.0-1.3) K/mcL Eosinophils # 0.0 (0.0-0.6) K/mcL Basophils # 0.0 (0.0-0.2) K/mcL Platelet Estimate Normal (Normal) Sodium 138 (136-145) mEq/L Potassium 4.4 (3.5-5.1) mEq/L Chloride 95 L (98-107) mEq/L Carbon Dioxide 30 H (23-29) mEq/L BUN 17 (6-20) mg/dL Creatinine 0.72 (0.70-1.30) mg/dL Est GFR ( Amer) > 60 (> 60) Est GFR (Non-Af Amer) > 60 (> 60) BUN/Creatinine Ratio 24 (6-26) Glucose 113 H (70-105) mg/dL Calculated Osmolality 288 (280-300) Calcium 10.1 (8.6-10.3) mg/dL Troponin I < 0.03 (< 0.04) ng/mL - Radiology Data Radiology results reviewed: Yes I reviewed the patient's radiology results. Chest X-Ray 12/30/17 21:48 IMPRESSION: Lhlh-rctybrn-pfrn-right bibasilar coarse increased lung markings unchanged from 12/07/2017. D/ / Ayo Campa MD / Ayo Campa MD Interpreting Provider: Ayo Campa MD - EKG Data EKG attestation: Yes I reviewed and interpreted this EKG. EKG results narrative: EKG performed 2148 normal sinus rhythm 87 beats per minute, normal axis, good R wave progression, no ST elevation or depression, intervals within normal limits. Compared to prior EKG performed 11/13/2017 shows sinus tachycardia with left atrial enlargement. No acute ischemic changes.
[2017-12-30 22:56] LABS: Platelet Estimate Normal (Normal)
[2017-12-30 23:02] LABS: BUN/Creatinine Ratio 24 (6-26); Blood Urea Nitrogen 17 mg/dL (6-20); Calcium 10.1 mg/dL (8.6-10.3); Carbon Dioxide 30 mEq/L (23-29); Chloride 95 mEq/L (98-107); Glucose 113 mg/dL (70-105); Osmolality,Calculated 288 (280-300); Potassium 4.4 mEq/L (3.5-5.1); Sodium 138 mEq/L (136-145); eGFR For Non-African Americans > 60 (> 60)
[2017-12-30 23:03] LABS: Troponin I < 0.03 ng/mL (< 0.04)
[2017-12-30] MEDS ORDERED: Azithromycin 500 MG in D5% in Water 250 ML IVPB ONE (23:28)
[2017-12-31] MEDS ORDERED: Naloxone 0.4 MG/ML INJ IVP PRN (01:21)
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
[2017-12-31] MEDS ORDERED: Ipratropium/Albuterol Neb 3 ML IH SCH (05:00)
[2017-12-31 06:12] LABS: Hematocrit 33.3 % (37.5-50.1); Hemoglobin 10.8 g/dL (12.9-16.9); Mean Corpuscular HGB Conc 32.4 g/dL (31.6-35.5); Mean Corpuscular Hemoglobin 27.8 pg (28.0-33.3); Mean Corpuscular Volume 85.8 fL (83.0-100.0); Mean Platelet Volume 9.9 fL (9.4-12.4); Platelet Count 313 K/mcL (140-400); Red Blood Count 3.88 M/mcL (4.19-5.50); Red Cell Distribution Width 14.3 % (11.5-14.5)
[2017-12-31 06:33] LABS: Troponin I < 0.03 ng/mL (< 0.04)
[2017-12-31 06:38] LABS: BUN/Creatinine Ratio 27 (6-26); Blood Urea Nitrogen 23 mg/dL (6-20); Calcium 9.7 mg/dL (8.6-10.3); Carbon Dioxide 30 mEq/L (23-29); Chloride 95 mEq/L (98-107); Glucose 265 mg/dL (70-105); Osmolality,Calculated 297 (280-300); Sodium 137 mEq/L (136-145); eGFR For Non-African Americans > 60 (> 60)
[2017-12-31] MEDS: Furosemide 20 MG TABLET PO SCH ×3 (08:51→17:13)
[2017-12-31] MEDS: predniSONE 20 MG TABLET PO SCH (08:52)
[2017-12-31] MEDS: *HR* Rivaroxaban 10 MG TABLET PO SCH (08:52)
--- NOTE | 2017-12-31 10:12 | Internal Med Progress Note ---
Hospitalist Progress Note - Encounter Date of Encounter: 12/31/17 Time of Encounter: 10:10 - Subjective Interval History: I examined patient at bedside. Patient denies any CP or SOB at this time. He does have a moist productive cough. Will send for sputum. Patient has hx of noncompliance, according to nursing he was refusing lasix and steroid this AM he eventually did take medication. - Exam Vitals: Temp Pulse Resp BP Pulse Ox 97.8 F 88 16 120/72 97 12/31/17 08:05 12/31/17 08:05 12/31/17 08:05 12/31/17 08:05 12/31/17 08:05 Exam: General: Alert and oriented x3, not in acute distress. HEENT:EOM, pupils equal, round and reactive. Cardiovascular:Normal S1 & S2, No JVD. Pulse regular. No chest wall tenderness Lungs: scattered rhonchi with moist productive cough Abdomen:Soft, non-tender, no rigidity. Extremities:No deformity or swelling Neurological:Normal cognition and motor skills. Non-focal Skin:Normal color, no rash, no lesions. Pulses:Carotid and radial pulses normal +2. Rest of the physical exam is non contributory - Assessment and Plan (1) Acute exacerbation of chronic obstructive airways disease Current Visit: No Status: Acute Assessment and Plan: 1 SOB improving on home O2 level. Lung sounds with course rhonchi brown sputum production Chest x-ray unchanged from previous, recently treated for pneumonia, but patient currently afebrile and no elevated white count. Do not suspect worsening pneumonia at this time, but we will watch for signs of infection. Sputum culture cont with Duonebs q 4h con zithromax IV Cont with oral steroids O2 at 4l NC titrate to maintain spo2 >90% Acapella per respiratory (2) Chest tightness Current Visit: No Status: Acute Assessment and Plan: Likely to COPD exerbation. No CP voiced at this time or overnight Troponins negative X3 EKG for CP Cont cardiac monitoring (3) DVT prophylaxis Current Visit: No Status: Acute Assessment and Plan: 1 cont xarelto (4) History of pulmonary embolism Current Visit: No Status: Chronic Assessment and Plan: cont xarelto (5) Acute and chronic respiratory failure Current Visit: No Status: Resolved Assessment and Plan: Came in to ED with Dyspnea - secondary to COPD exacerbation - cont with O2 support and CPAP - Time Spent with Patient Total time spent is greater than 50% in coordination of care (as documented) at patient's floor/unit and/or counseling patient: Internal Medicine: Result - Labs CBC & Chem 7: 12/31/17 05:38 12/31/17 05:38 Labs: Short CBC 12/31/17 Range/Units 05:38 WBC 4.6 (4.3-11.1) K/mcL Hgb 10.8 L (12.9-16.9) g/dL Hct 33.3 L (37.5-50.1) % Plt Count 313 (140-400) K/mcL BMP 12/31/17 05:38 Sodium 137 Potassium 4.0 Chloride 95 L Carbon Dioxide 30 H BUN 23 H Creatinine 0.84 Glucose 265 H Calcium 9.7 Cardiac Enzymes 12/31/17 Range/Units 05:38 Troponin I < 0.03 (< 0.04) ng/mL Consult Discharge Plan - Plan Referrals: Marilyn Rojas, ARTIST REPRESENTATIVE [Primary Care Provider] - (5) Acute and chronic respiratory failure Qualifiers: Respiratory failure complication: hypoxia and hypercapnia Qualified Code(s): J96.21 - Acute and chronic respiratory failure with hypoxia; J96.22 - Acute and chronic respiratory failure with hypercapnia
[2017-12-31] MEDS: Ipratropium/Albuterol Neb 3 ML IH SCH ×4 (11:04→23:47)
[2018-01-01] MEDS: Ipratropium/Albuterol Neb 3 ML IH SCH ×4 (04:28→15:28)
[2018-01-01 04:53] LABS: Basophils % 0.3 %; Eosinophils % 0.7 %; Hematocrit 30.3 % (37.5-50.1); Hemoglobin 9.7 g/dL (12.9-16.9); Immature Granulocytes % 0.3 % (0-4); Lymphocytes # 1.2 K/mcL (0.6-4.6); Lymphocytes % 21.6 %; Mean Corpuscular Volume 87.3 fL (83.0-100.0); Mean Platelet Volume 9.7 fL (9.4-12.4); Monocytes # 0.5 K/mcL (0.0-1.3); Monocytes % 8.9 %; Neutrophils # 3.9 K/mcL (1.6-8.9); Platelet Count 299 K/mcL (140-400); Red Blood Count 3.47 M/mcL (4.19-5.50); Red Cell Distribution Width 14.6 % (11.5-14.5); Segmented Neutrophils % 68.2 %
[2018-01-01 05:20] LABS: BUN/Creatinine Ratio 35 (6-26); Blood Urea Nitrogen 21 mg/dL (6-20); Calcium 9.3 mg/dL (8.6-10.3); Carbon Dioxide 33 mEq/L (23-29); Chloride 102 mEq/L (98-107); Glucose 113 mg/dL (70-105); Osmolality,Calculated 296 (280-300); Sodium 141 mEq/L (136-145); eGFR For Non-African Americans > 60 (> 60)
[2018-01-01] MEDS ORDERED: Potassium Chloride 40 MEQ, Lidocaine 1% 2 ML in D5% in Water 500 ML IVPB ONE (09:18)
[2018-01-01] MEDS: Furosemide 20 MG TABLET PO SCH ×2 (09:29→12:05)
[2018-01-01] MEDS: predniSONE 20 MG TABLET PO SCH (09:29)
[2018-01-01] MEDS: *HR* Rivaroxaban 10 MG TABLET PO SCH (09:29)
[2018-01-01 11:40] VITALS: BP 113/67
--- NOTE | 2018-01-01 14:36 | Discharge Summary ---
- NOTES TO OUTPATIENT PROVIDER Notes to Outpatient Provider: COPD excerbation- steroid taper,zithromax Orders not resulted at time of discharge: Pending orders 12/30/17 23:42 Culture,Blood [BC] Stat 12/31/17 08:17 EKG [ECG 12 lead ECG] [ECG] Routine 12/31/17 10:10 Culture,Sputum with Gram Stain [RM] Routine 01/01/18 14:00 H/H [Hemoglobin and Hematocrit] [HEME] Routine Potassium Routine 01/02/18 04:00 CBC [Complete Blood Count] [HEME] AM 0400 Chem 7 [Basic Metabolic Panel] AM 0400 01/03/18 04:00 CBC [Complete Blood Count] [HEME] AM 0400 Chem 7 [Basic Metabolic Panel] AM 0400 Date of Encounter: 01/02/18 Time of Encounter: 14:30 - Discharge Diagnosis (1) Acute exacerbation of chronic obstructive airways disease Priority: Primary Status: Acute (2) Chest tightness Priority: Secondary Status: Acute (3) History of pulmonary embolism Priority: Secondary Status: Chronic (4) Diastolic CHF Priority: Secondary Status: Acute Qualifiers: Heart failure chronicity: chronic Qualified Code(s): I50.32 - Chronic diastolic (congestive) heart failure Hospital course: Mr. Blanchard is a 57 year old male past medical hx of diastolic CHF COPD oxygen dependent on 4l NC and Bipap HTN PE. Presented to the ED after experiencing increasing SOB and chest tightness with cough . Breathing tx did not help. He was recently treated and discharged from this facility for pneumonia He did complete his ATB and and is compliant with Xarelto He is afebrile no white count. CXR shows unchanged Left greater than R bibasilar coarse increased lung markings. He was given steroid orally as well as bronchodilators Zithromax IV. His respiratory states return back to baseline and he is on home O2- Sputum culture with normal carlos. His potassium was low this AM and has been replaced. We will discharge on Steroid taper and he will resume home dose of Prednisone. we will cont zithromax for 4 days. Patient will follow up with PCP and monitor electrolytes and CBC. He is hemodynamically stable and ready for discharge Discharge discussed with: patient - Time Spent with Patient Total time spent providing and/or coordinating discharge services: - Discharge Medications Prescriptions: Azithromycin [Zithromax] 250 mg PO DAILY #4 tablet predniSONE [PredniSONE] 10 mg PO DAILY #16 tablet Home Medications: Docusate [Colace] 100 mg PO BID 07/25/17 [History] Ipratropium/Albuterol Neb [Duoneb] 3 ml IH Q4H PRN 07/25/17 [History] Oxygen 4 l NS AD 07/25/17 [History] Roflumilast [Daliresp] 500 mcg PO DAILY 07/25/17 [History] Metoprolol [Lopressor] 25 mg PO BID 09/10/17 [History] Acetaminophen [Tylenol] 650 mg PO Q6HR PRN tablet 09/20/17 [Rx] Albuterol Sulfate [Albuterol Inhaler] 2 puff IH Q4H PRN #1 inhaler 09/20/17 [Rx] Furosemide [Lasix] 40 mg PO TID #90 tab 09/20/17 [Rx] Mometasone/Formoterol [Dulera 200 Mcg/5 Mcg Inhaler] 2 puff IH BID #1 hfa.aer.ad 09/20/17 [Rx] Rivaroxaban [Xarelto] 20 mg PO DAILY #60 tablet 09/20/17 [Rx] Umeclidinium [place] [Incruse Ellipta] 62.5 mcg IH DAILY #1 blst.w.dev 09/20/17 [Rx] Omeprazole [PriLOSEC] 20 mg PO 0730 09/30/17 [History] Loratadine [Claritin] 10 mg PO DAILY #30 tablet 11/09/17 [Rx] Budesonide Neb [Pulmicort Neb] 0.5 mg IH BIDRESP inhsol 11/14/17 [Rx] Gabapentin [Neurontin] 300 mg PO TID 12/31/17 [History] Tiotropium [place] [Spiriva Respimat] 2 puff IH DAILY 12/31/17 [History] Triamterene/HCTZ 37.5/25mg [Dyazide] 1 tab PO DAILY 12/31/17 [History] Azithromycin [Zithromax] 250 mg PO DAILY #4 tablet 01/01/18 [Rx] predniSONE [PredniSONE] 10 mg PO DAILY #16 tablet 01/01/18 [Rx] Allergies/Adverse Reactions: 3 Allergy/AdvReac Type Severity Reaction Status Date / Time levofloxacin AdvReac Blurry Verified 11/13/17 19:34 [facility] Date of admission: 12/30/17 23:39 Primary care physician: Marilyn Rojas CNP Consults: 12/31/17 01:21 Consult to Nurse Navigator [CONS] Routine Comment: 12/31/17 01:25 Consult to Nurse Navigator [CONS] Routine Comment: 12/31/17 10:06 Consult to Respiratory Therapy [CONS] Routine Reason for Consult: [place] Time Notified: 10:07 Call Completed: No Discharging clinician: Britt Millard Anticipated date of discharge: 01/01/18 - Constitutional Vitals: Temp Pulse Resp BP Pulse Ox 96.9 F L 72 16 113/67 97 01/01/18 11:36 01/01/18 11:36 01/01/18 11:36 01/01/18 11:36 01/01/18 11:36 General appearance: Present: cooperative, mild distress, A&O X 3, pleasant, answers questions appropriately - Head Head exam: Present: atraumatic, normocephalic - Eye Eye exam: Present: PERRL, conjuntiva pink, sclera anicteric Pupils: Present: PERRL - Neck Neck exam general surgery: Present: supple, trachea midline. Absent: lymphadenopathy - Respiratory Respiratory exam: Present: CTAB. Absent: accessory muscle use, rales, rhonchi, wheezes - Cardiovascular Cardiovascular exam: Present: RRR, +S1, +S2. Absent: diastolic murmur, gallop, rubs, systolic murmur - GI/Abdominal GI/Abdominal exam: Present: normal bowel sounds, soft, no peritoneal signs. Absent: distended, tenderness - Extremities Exam Extremities exam: Present: warm, radial pulses palpable and symmetrical. Absent : calf tenderness, cyanotic, pedal edema - Neurological Exam Neurological exam: Present: CN II-XII intact, oriented X3, no focal deficits. Absent: pronater drift, facial droop, speech deficit - Skin Skin exam: Present: dry, intact - Patient Status Disposition: Home, Self-Care Condition: Fair Overall status at discharge: patient is back to baseline - Discharge Instructions Instructions: Acute Respiratory Distress Syndrome (DC), Chronic Obstructive Pulmonary Disease (DC) Follow Up With: Hubel,Lindora S, C IRON WORKER [Primary Care Provider] - Forms: ED Satisfaction Letter - Diet and Activity Activity: increase activity as tolerated, wear oxygen at all times Diet: low salt diet
[2018-01-01 15:27] LABS: Hematocrit 31.2 % (37.5-50.1)
--- NOTE | 2018-01-01 16:23 | Electrocardiograph Report ---
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
--- NOTE | 2018-01-02 18:15 | Physician Discharge Referral ---
Home Health/Hosp Referral Info Transfer to: Home Health Attending Provider: Britt Millard Provider in Charge Post Discharge: PCP - Diagnosis (1) Acute exacerbation of chronic obstructive airways disease Priority: Primary Status: Acute (2) Chest tightness Priority: Secondary Status: Acute (3) History of pulmonary embolism Priority: Secondary Status: Chronic (4) Diastolic CHF Priority: Secondary Status: Acute - Respiratory Orders Oxygen / L per min (3-4L NC) Smoking Cessation: Smoking cessation has been advised. For more information, call the [employer] Quit Line at 9-958-QSTE-NOW. 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 - Transfer Medications Prescriptions: Azithromycin [Zithromax] 250 mg PO DAILY #4 tablet predniSONE [PredniSONE] 10 mg PO DAILY #16 tablet Home Medications: Docusate [Colace] 100 mg PO BID 07/25/17 [History] Ipratropium/Albuterol Neb [Duoneb] 3 ml IH Q4H PRN 07/25/17 [History] Oxygen 4 l NS AD 07/25/17 [History] Roflumilast [Daliresp] 500 mcg PO DAILY 07/25/17 [History] Metoprolol [Lopressor] 25 mg PO BID 09/10/17 [History] Acetaminophen [Tylenol] 650 mg PO Q6HR PRN tablet 09/20/17 [Rx] Albuterol Sulfate [Albuterol Inhaler] 2 puff IH Q4H PRN #1 inhaler 09/20/17 [Rx] Furosemide [Lasix] 40 mg PO TID #90 tab 09/20/17 [Rx] Mometasone/Formoterol [Dulera 200 Mcg/5 Mcg Inhaler] 2 puff IH BID #1 hfa.aer.ad 09/20/17 [Rx] Rivaroxaban [Xarelto] 20 mg PO DAILY #60 tablet 09/20/17 [Rx] Umeclidinium [place] [Incruse Ellipta] 62.5 mcg IH DAILY #1 blst.w.dev 09/20/17 [Rx] Omeprazole [PriLOSEC] 20 mg PO 0730 09/30/17 [History] Loratadine [Claritin] 10 mg PO DAILY #30 tablet 11/09/17 [Rx] Budesonide Neb [Pulmicort Neb] 0.5 mg IH BIDRESP inhsol 11/14/17 [Rx] Gabapentin [Neurontin] 300 mg PO TID 12/31/17 [History] Tiotropium [place] [Spiriva Respimat] 2 puff IH DAILY 12/31/17 [History] Triamterene/HCTZ 37.5/25mg [Dyazide] 1 tab PO DAILY 12/31/17 [History] Azithromycin [Zithromax] 250 mg PO DAILY #4 tablet 01/01/18 [Rx] predniSONE [PredniSONE] 10 mg PO DAILY #16 tablet 01/01/18 [Rx] Allergies/Adverse Reactions: 3 Allergy/AdvReac Type Severity Reaction Status Date / Time levofloxacin AdvReac Blurry Verified 11/13/17 19:34 [facility] Certification: Further, I certify that my clinical findings support that this patient is homebound (i.e. absences from home require considerable and taxing effort and are for medical reasons or holiness services or infrequently or short duration when for other reasons) because: Homebound Reason: Severity of cardiac or pulmonary status limits activity tolerance Attestation: My signature below is to certify that this patient is under my care and that I, or nurse practitioner, or a physician's assistant professor of mathematics working with me, has a face-to -face encounter with this patient.
== END 2018-01-01 16:53 | disposition home or self-care (01) ==
LOC: 3BNU 21:40 → EMEROO 21:40 → 3BNU 23:55
PROVIDERS: ADMIT Internal Medicine; ATTEND Internal Medicine

== ENCOUNTER 2018-01-03 19:43 | Observation (INO) ==
[2018-01-03 20:28] LABS: Basophils % 0.1 %; Hematocrit 33.2 % (37.5-50.1); Hemoglobin 10.8 g/dL (12.9-16.9); Immature Granulocytes % 0.6 % (0-4); Lymphocytes # 0.5 K/mcL (0.6-4.6); Lymphocytes % 6.4 %; Mean Corpuscular HGB Conc 32.5 g/dL (31.6-35.5); Mean Corpuscular Hemoglobin 28.8 pg (28.0-33.3); Mean Corpuscular Volume 88.5 fL (83.0-100.0); Mean Platelet Volume 9.7 fL (9.4-12.4); Monocytes # 0.1 K/mcL (0.0-1.3); Monocytes % 0.8 %; Neutrophils # 7.3 K/mcL (1.6-8.9); Platelet Count 360 K/mcL (140-400); Red Blood Count 3.75 M/mcL (4.19-5.50); Red Cell Distribution Width 14.5 % (11.5-14.5); Segmented Neutrophils % 92.1 %
[2018-01-03] MEDS ORDERED: predniSONE 10 MG TABLET PO STA (20:41)
[2018-01-03] MEDS ORDERED: Albuterol 2.5 MG/3 ML NEBULIZER IH ONE (20:42)
[2018-01-03] MEDS ORDERED: Ipratropium/Albuterol Neb 3 ML IH ONE (20:42)
[2018-01-03 20:44] LABS: Troponin I < 0.03 ng/mL (< 0.04)
[2018-01-03 20:45] LABS: Alanine Aminotransferase 28 Units/L (7-52); Albumin/Globulin Ratio 1.4 (1.1-2.2); Alkaline Phosphatase 82 Units/L (34-104); Aspartate Amino Transferase 17 Units/L (13-39); BUN/Creatinine Ratio 22 (6-26); Bilirubin,Indirect 0.3 mg/dL (0.0-1.2); Bilirubin,Total 0.3 mg/dL (0.3-1.0); Blood Urea Nitrogen 15 mg/dL (6-20); Calcium 9.9 mg/dL (8.6-10.3); Carbon Dioxide 29 mEq/L (23-29); Chloride 104 mEq/L (98-107); Globulin 2.9 g/dL (2.4-3.5); Glucose 136 mg/dL (70-105); Lipase 19 Units/L (11-82); Osmolality,Calculated 283 (280-300); Sodium 135 mEq/L (136-145); Total Protein 6.9 g/dL (6.4-8.9); eGFR For Non-African Americans > 60 (> 60)
[2018-01-03 20:46] LABS: Platelet Estimate Normal (Normal)
--- NOTE | 2018-01-03 20:50 | Emergency Department Note ---
Disposition Clinical Impression: Healthcare-associated pneumonia, Elevated lactic acid level Disposition: Admitted As Inpatient Condition: Fair Referrals: Marilyn Rojas CNP [Primary Care Provider] - Forms: ED Satisfaction Letter SOB HPI - General Chief Complaint: ED Shortness of Breath/Dyspnea Stated Complaint: lucrecia on continuous o2 copd Time Seen by Provider: 01/03/18 19:51 Source: patient Mode of arrival: private vehicle Limitations: no limitations Nursing Notes Reviewed: Yes Vital Signs Reviewed: Yes - History of Present Illness 57-year-old male history of oxygen-dependent COPD at 4 L continuous presents to the ER with a complaint of shortness of breath. Patient states that he was just in the hospital and discharged home however he has not felt any better. Reports increased work of breathing as well as a nonproductive cough. Also reports pain across his chest without radiation. Denies any prior cardiac history. Reports one history of pulmonary embolism for which she is currently on anticoagulation. No other complaints. Pt Subjective Complaint: shortness of breath, cough Onset (ago): day(s) Context: recent illness Severity: moderate Consistency/Duration: constant Improves with: nothing Worsens with: nothing Known history of: COPD Associated symptoms: Reports: chest pain, cough. Denies: fever Treatment prior to arrival: oxygen, bronchodilator, other Cough present: Yes Cough Description: Involuntary - Related Data Home oxygen amount: 4 liters Home Medications Medication Instructions Recorded Confirmed Docusate [Colace] 100 mg PO BID 07/25/17 12/31/17 Ipratropium/Albuterol Neb [Duoneb] 3 ml IH Q4H PRN 07/25/17 12/31/17 Oxygen 4 l NS AD 07/25/17 12/31/17 Roflumilast [Daliresp] 500 mcg PO DAILY 07/25/17 12/31/17 Metoprolol [Lopressor] 25 mg PO BID 09/10/17 12/31/17 Omeprazole [PriLOSEC] 20 mg PO 0730 09/30/17 12/31/17 Gabapentin [Neurontin] 300 mg PO TID 12/31/17 12/31/17 Tiotropium [place] [Spiriva 2 puff IH DAILY 12/31/17 12/31/17 Respimat] Triamterene/HCTZ 37.5/25mg 1 tab PO DAILY 12/31/17 12/31/17 [Dyazide] Previous Rx's Medication Instructions Recorded Acetaminophen [Tylenol] 650 mg PO Q6HR PRN tablet 09/20/17 Albuterol Sulfate [Albuterol 2 puff IH Q4H PRN #1 inhaler 09/20/17 Inhaler] Furosemide [Lasix] 40 mg PO TID #90 tab 09/20/17 Mometasone/Formoterol [Dulera 200 2 puff IH BID #1 hfa.aer.ad 09/20/17 Mcg/5 Mcg Inhaler] Rivaroxaban [Xarelto] 20 mg PO DAILY #60 tablet 09/20/17 Umeclidinium [place] [Incruse 62.5 mcg IH DAILY #1 blst.w.dev 09/20/17 Ellipta] Loratadine [Claritin] 10 mg PO DAILY #30 tablet 11/09/17 Budesonide Neb [Pulmicort Neb] 0.5 mg IH BIDRESP inhsol 11/14/17 Azithromycin [Zithromax] 250 mg PO DAILY #4 tablet 01/01/18 predniSONE [PredniSONE] 10 mg PO DAILY #16 tablet 01/01/18 Allergies Allergy/AdvReac Type Severity Reaction Status Date / Time levofloxacin AdvReac Blurry Verified 11/13/17 19:34 [facility] All systems ED: reviewed and negative except as stated. Constitutional: Denies: fever Cardiovascular: Reports: chest pain Respiratory: Reports: cough, dyspnea. Denies: sputum production Gastrointestinal: Reports: abdominal pain. Denies: nausea, vomiting Past Medical History - Past Medical History Attestation: Yes The following information was validated with the patient. Source: patient Medical history: Reports: asthma, CHF, COPD, hyperlipidemia, hypertension, pulmonary embolus Surgical history: Reports: no surgical history Psychiatric history: Reports: anxiety, depression - Social History Smoking Status: Former smoker Smokeless Tobacco Status: No Alcohol use: Reports: rarely Drug use: Reports: none Physical Exam - General Limitations: no limitations General appearance: alert, anxious - Head Head exam: atraumatic, normocephalic - Eye Eye exam: Present: normal appearance - ENT ENT exam: normal exam - Neck Neck exam: Present: normal inspection - Chest Chest inspection: Present: normal inspection, symmetric chest wall rise - Respiratory Respiratory exam: Present: prolonged expiratory phase, other (Diminished breath sounds bilaterally with prolonged expiratory phase.) - Cardiovascular Cardiovascular exam: Present: regular rate, normal rhythm, normal heart sounds - Abdominal Exam Abdominal exam: Present: soft, Non-Tender. Absent: tenderness - Extremities Exam Extremities exam: Present: normal inspection, full ROM - Expanded Upper Extremity Exam Shoulder exam: Present: normal inspection, full ROM Arm exam: Present: normal inspection, full ROM Elbow exam: Present: normal inspection, full ROM Forearm/Wrist exam: Present: normal inspection, full ROM Hand exam: Present: normal inspection, full ROM Vascular exam: Normal: radial pulse - Expanded Lower Extremity Exam Hip/Pelvis exam: Present: normal inspection, full ROM Upper leg exam: Present: normal inspection, full ROM Knee exam: Present: normal inspection, full ROM Lower leg exam: Present: normal inspection, full ROM Ankle exam: Present: normal inspection, full ROM Foot/toe exam: Present: normal inspection, full ROM - Skin Skin exam: Present: warm, dry Course Course Narrative: Patient seen and examined. Vital signs reviewed. Plan for EKG, chest x-ray as well as labs. DuoNeb treatment give as well as additional steroids. Vital Signs Temperature 98.5 F 01/03/18 19:51 Pulse Rate 94 01/03/18 19:51 Respiratory Rate 22 01/03/18 19:51 Blood Pressure 135/80 01/03/18 19:51 O2 Sat by Pulse Oximetry 96 01/03/18 19:51 Temperature 98.5 F 01/03/18 19:51 Pulse Rate 74 01/03/18 20:45 Respiratory Rate 16 01/03/18 20:53 Blood Pressure 130/93 01/03/18 20:45 O2 Sat by Pulse Oximetry 97 01/03/18 22:14 Oxygen Delivery Oxygen Delivery Nasal Cannula Shortness of Breath/Dyspnea - [facility] Narrative Medical decision making narrative: 57-year-old male presenting with cough and shortness of breath. Recent admission and discharged 2 days ago. Currently on typical oxygen requirements. Chest x-ray demonstrating concern for left lower lobe pneumonia. He does have an elevated lactate of 3. Patient treated with vancomycin and Zosyn. Admitted to the hospital service for healthcare associated pneumonia. - Lab Data Lab results reviewed: Yes I reviewed the patient's lab results. Result diagrams: 01/03/18 20:13 01/03/18 20:13 Lab Results 08/15/18 08/15/18 08/15/18 Range/Units 20:13 20:13 20:13 WBC 7.9 (4.3-11.1) K/mcL RBC 3.75 L (4.19-5.50) M/mcL Hgb 10.8 L (12.9-16.9) g/dL Hct 33.2 L (37.5-50.1) % MCV 88.5 (83.0-100.0) fL MCH 28.8 (28.0-33.3) pg MCHC 32.5 (31.6-35.5) g/dL RDW 14.5 (11.5-14.5) % Plt Count 360 (140-400) K/mcL MPV 9.7 (9.4-12.4) fL Immature Gran % 0.6 (0-4) % Seg Neutrophils % 92.1 % Lymphocytes % 6.4 % Monocytes % 0.8 % Eosinophils % 0.0 % Basophils % 0.1 % Neutrophils # 7.3 (1.6-8.9) K/mcL Lymphocytes # 0.5 L (0.6-4.6) K/mcL Monocytes # 0.1 (0.0-1.3) K/mcL Eosinophils # 0.0 (0.0-0.6) K/mcL Basophils # 0.0 (0.0-0.2) K/mcL Platelet Estimate Normal (Normal) Sodium 135 L (136-145) mEq/L Potassium 4.0 (3.5-5.1) mEq/L Chloride 104 (98-107) mEq/L Carbon Dioxide 29 (23-29) mEq/L BUN 15 (6-20) mg/dL Creatinine 0.67 L (0.70-1.30) mg/dL Est GFR ( Amer) > 60 (> 60) Est GFR (Non-Af Amer) > 60 (> 60) BUN/Creatinine Ratio 22 (6-26) Glucose 136 H (70-105) mg/dL Calculated Osmolality 283 (280-300) Lactic Acid 3.0 H (0.5-2.2) mmol/L Calcium 9.9 (8.6-10.3) mg/dL Total Bilirubin 0.3 (0.3-1.0) mg/dL Direct Bilirubin 0.0 (0.0-0.2) mg/dL Indirect Bilirubin 0.3 (0.0-1.2) mg/dL AST 17 (13-39) Units/L ALT 28 (7-52) Units/L Alkaline Phosphatase 82 (34-104) Units/L Troponin I < 0.03 (< 0.04) ng/mL B-Natriuretic Peptide (Less than 100) pg/mL Serum Total Protein 6.9 (6.4-8.9) g/dL Albumin 4.0 (3.5-5.7) g/dL Globulin 2.9 (2.4-3.5) g/dL Albumin/Globulin Ratio 1.4 (1.1-2.2) Lipase 19 (11-82) Units/L /15/18 Range/Units 20:13 WBC (4.3-11.1) K/mcL RBC (4.19-5.50) M/mcL Hgb (12.9-16.9) g/dL Hct (37.5-50.1) % MCV (83.0-100.0) fL MCH (28.0-33.3) pg MCHC (31.6-35.5) g/dL RDW (11.5-14.5) % Plt Count (140-400) K/mcL MPV (9.4-12.4) fL Immature Gran % (0-4) % Seg Neutrophils % % Lymphocytes % % Monocytes % % Eosinophils % % Basophils % % Neutrophils # (1.6-8.9) K/mcL Lymphocytes # (0.6-4.6) K/mcL Monocytes # (0.0-1.3) K/mcL Eosinophils # (0.0-0.6) K/mcL Basophils # (0.0-0.2) K/mcL Platelet Estimate (Normal) Sodium (136-145) mEq/L Potassium (3.5-5.1) mEq/L Chloride (98-107) mEq/L Carbon Dioxide (23-29) mEq/L BUN (6-20) mg/dL Creatinine (0.70-1.30) mg/dL Est GFR ( Amer) (> 60) Est GFR (Non-Af Amer) (> 60) BUN/Creatinine Ratio (6-26) Glucose (70-105) mg/dL Calculated Osmolality (280-300) Lactic Acid (0.5-2.2) mmol/L Calcium (8.6-10.3) mg/dL Total Bilirubin (0.3-1.0) mg/dL Direct Bilirubin (0.0-0.2) mg/dL Indirect Bilirubin (0.0-1.2) mg/dL AST (13-39) Units/L ALT (7-52) Units/L Alkaline Phosphatase (34-104) Units/L Troponin I (< 0.04) ng/mL B-Natriuretic Peptide 66 (Less than 100) pg/mL Serum Total Protein (6.4-8.9) g/dL Albumin (3.5-5.7) g/dL Globulin (2.4-3.5) g/dL Albumin/Globulin Ratio (1.1-2.2) Lipase (11-82) Units/L - Radiology Data Radiology results reviewed: Yes I reviewed the patient's radiology results. Chest X-Ray 01/03/18 20:00 IMPRESSION: Mild left basilar opacities compatible with atelectasis versus pneumonia. D/ / Roni Costello MD / Roni Costello MD Interpreting Provider: Roni Costello MD - EKG Data EKG attestation: Yes I reviewed and interpreted this EKG. EKG results narrative: EKG demonstrates sinus rhythm. Normal axis. Normal intervals. Normal R-wave progression. No gross ST elevations or depressions. No acute ischemic findings. Elder - Elder Situation: Demographics, MOA Background: Presenting Complaint, Relevant PMH, Meds, & Allergies Assessment: Course and respsone to treatment, Exam Concerns, Patient/Family Expectation, Pertinant Lab Results, Outstanding Labs Recommendation: Barrier(s) to disposition, Recommendation based on pending studies, treatments, or consults Elder Report Given to: Dr. Kiara Bauer Time: 22:15
[2018-01-03] MEDS ORDERED: 0.9 % Sodium Chloride 1,000 ML IVC ONE (21:31)
[2018-01-03] MEDS ORDERED: Piperacillin/Tazobactam 3.375 GM in 0.9 % Sodium Chloride Mini Bag 100 ML IVPB ONE (21:48)
[2018-01-03] MEDS ORDERED: Levofloxacin 750 MG/150 ML 750 MG/150 ML BAG IVPB ONE (22:06)
--- NOTE | 2018-01-03 22:07 | Emergency Department Note ---
Disposition Clinical Impression: Healthcare-associated pneumonia, Elevated lactic acid level Disposition: Admitted As Inpatient Condition: Fair Referrals: Marilyn Rojas CNP [Non-Partnered Physician] - Forms: ED Satisfaction Letter Time of Disposition: 22:00 SOB HPI - General Chief Complaint: ED Shortness of Breath/Dyspnea Stated Complaint: lucrecia on continuous o2 copd Time Seen by Provider: 01/03/18 19:51 Source: patient Mode of arrival: private vehicle Limitations: no limitations Nursing Notes Reviewed: Yes Vital Signs Reviewed: Yes - History of Present Illness Severity: moderate Improves with: nothing Worsens with: nothing Associated symptoms: Reports: chest pain, cough. Denies: fever Treatment prior to arrival: oxygen, bronchodilator, other - Related Data Home oxygen amount: 4 liters Home Medications Medication Instructions Recorded Confirmed Docusate [Colace] 100 mg PO BID 07/25/17 12/31/17 Ipratropium/Albuterol Neb [Duoneb] 3 ml IH Q4H PRN 07/25/17 12/31/17 Oxygen 4 l NS AD 07/25/17 12/31/17 Roflumilast [Daliresp] 500 mcg PO DAILY 07/25/17 12/31/17 Metoprolol [Lopressor] 25 mg PO BID 09/10/17 12/31/17 Omeprazole [PriLOSEC] 20 mg PO 0730 09/30/17 12/31/17 Gabapentin [Neurontin] 300 mg PO TID 12/31/17 12/31/17 Tiotropium [place] [Spiriva 2 puff IH DAILY 12/31/17 12/31/17 Respimat] Triamterene/HCTZ 37.5/25mg 1 tab PO DAILY 12/31/17 12/31/17 [Dyazide] Previous Rx's Medication Instructions Recorded Acetaminophen [Tylenol] 650 mg PO Q6HR PRN tablet 09/20/17 Albuterol Sulfate [Albuterol 2 puff IH Q4H PRN #1 inhaler 09/20/17 Inhaler] Furosemide [Lasix] 40 mg PO TID #90 tab 09/20/17 Mometasone/Formoterol [Dulera 200 2 puff IH BID #1 hfa.aer.ad 09/20/17 Mcg/5 Mcg Inhaler] Rivaroxaban [Xarelto] 20 mg PO DAILY #60 tablet 09/20/17 Umeclidinium [place] [Incruse 62.5 mcg IH DAILY #1 blst.w.dev 09/20/17 Ellipta] Loratadine [Claritin] 10 mg PO DAILY #30 tablet 11/09/17 Budesonide Neb [Pulmicort Neb] 0.5 mg IH BIDRESP inhsol 11/14/17 Azithromycin [Zithromax] 250 mg PO DAILY #4 tablet 01/01/18 predniSONE [PredniSONE] 10 mg PO DAILY #16 tablet 01/01/18 Allergies Allergy/AdvReac Type Severity Reaction Status Date / Time levofloxacin AdvReac Blurry Verified 11/13/17 19:34 [facility] Constitutional: Denies: fever Cardiovascular: Reports: chest pain Respiratory: Reports: cough, dyspnea. Denies: sputum production Gastrointestinal: Reports: abdominal pain. Denies: nausea, vomiting Past Medical History - Past Medical History Medical history: Reports: asthma, CHF, COPD, hyperlipidemia, hypertension, pulmonary embolus Surgical history: Reports: no surgical history Psychiatric history: Reports: anxiety, depression - Social History Smoking Status: Former smoker Smokeless Tobacco Status: No Alcohol use: Reports: rarely Drug use: Reports: none Physical Exam - General Limitations: no limitations General appearance: alert, anxious Course Vital Signs Temperature 98.5 F 01/03/18 19:51 Pulse Rate 94 01/03/18 19:51 Respiratory Rate 22 01/03/18 19:51 Blood Pressure 135/80 01/03/18 19:51 O2 Sat by Pulse Oximetry 96 01/03/18 19:51 Temperature 98.5 F 01/03/18 19:51 Pulse Rate 74 01/03/18 20:45 Respiratory Rate 16 01/03/18 20:53 Blood Pressure 130/93 01/03/18 20:45 O2 Sat by Pulse Oximetry 81 01/03/18 20:53 Oxygen Delivery Oxygen Delivery Nasal Cannula Shortness of Breath/Dyspnea - Lab Data Result diagrams: 01/03/18 20:13 01/03/18 20:13 Lab Results 01/03/18 01/03/18 01/03/18 Range/Units 20:13 20:13 20:13 WBC 7.9 (4.3-11.1) K/mcL RBC 3.75 L (4.19-5.50) M/mcL Hgb 10.8 L (12.9-16.9) g/dL Hct 33.2 L (37.5-50.1) % MCV 88.5 (83.0-100.0) fL MCH 28.8 (28.0-33.3) pg MCHC 32.5 (31.6-35.5) g/dL RDW 14.5 (11.5-14.5) % Plt Count 360 (140-400) K/mcL MPV 9.7 (9.4-12.4) fL Immature Gran % 0.6 (0-4) % Seg Neutrophils % 92.1 % Lymphocytes % 6.4 % Monocytes % 0.8 % Eosinophils % 0.0 % Basophils % 0.1 % Neutrophils # 7.3 (1.6-8.9) K/mcL Lymphocytes # 0.5 L (0.6-4.6) K/mcL Monocytes # 0.1 (0.0-1.3) K/mcL Eosinophils # 0.0 (0.0-0.6) K/mcL Basophils # 0.0 (0.0-0.2) K/mcL Platelet Estimate Normal (Normal) Sodium 135 L (136-145) mEq/L Potassium 4.0 (3.5-5.1) mEq/L Chloride 104 (98-107) mEq/L Carbon Dioxide 29 (23-29) mEq/L BUN 15 (6-20) mg/dL Creatinine 0.67 L (0.70-1.30) mg/dL Est GFR ( Amer) > 60 (> 60) Est GFR (Non-Af Amer) > 60 (> 60) BUN/Creatinine Ratio 22 (6-26) Glucose 136 H (70-105) mg/dL Calculated Osmolality 283 (280-300) Lactic Acid 3.0 H (0.5-2.2) mmol/L Calcium 9.9 (8.6-10.3) mg/dL Total Bilirubin 0.3 (0.3-1.0) mg/dL Direct Bilirubin 0.0 (0.0-0.2) mg/dL Indirect Bilirubin 0.3 (0.0-1.2) mg/dL AST 17 (13-39) Units/L ALT 28 (7-52) Units/L Alkaline Phosphatase 82 (34-104) Units/L Troponin I < 0.03 (< 0.04) ng/mL B-Natriuretic Peptide (Less than 100) pg/mL Serum Total Protein 6.9 (6.4-8.9) g/dL Albumin 4.0 (3.5-5.7) g/dL Globulin 2.9 (2.4-3.5) g/dL Albumin/Globulin Ratio 1.4 (1.1-2.2) Lipase 19 (11-82) Units/L // Range/Units 20:13 WBC (4.3-11.1) K/mcL RBC (4.19-5.50) M/mcL Hgb (12.9-16.9) g/dL Hct (37.5-50.1) % MCV (83.0-100.0) fL MCH (28.0-33.3) pg MCHC (31.6-35.5) g/dL RDW (11.5-14.5) % Plt Count (140-400) K/mcL MPV (9.4-12.4) fL Immature Gran % (0-4) % Seg Neutrophils % % Lymphocytes % % Monocytes % % Eosinophils % % Basophils % % Neutrophils # (1.6-8.9) K/mcL Lymphocytes # (0.6-4.6) K/mcL Monocytes # (0.0-1.3) K/mcL Eosinophils # (0.0-0.6) K/mcL Basophils # (0.0-0.2) K/mcL Platelet Estimate (Normal) Sodium (136-145) mEq/L Potassium (3.5-5.1) mEq/L Chloride (98-107) mEq/L Carbon Dioxide (23-29) mEq/L BUN (6-20) mg/dL Creatinine (0.70-1.30) mg/dL Est GFR ( Amer) (> 60) Est GFR (Non-Af Amer) (> 60) BUN/Creatinine Ratio (6-26) Glucose (70-105) mg/dL Calculated Osmolality (280-300) Lactic Acid (0.5-2.2) mmol/L Calcium (8.6-10.3) mg/dL Total Bilirubin (0.3-1.0) mg/dL Direct Bilirubin (0.0-0.2) mg/dL Indirect Bilirubin (0.0-1.2) mg/dL AST (13-39) Units/L ALT (7-52) Units/L Alkaline Phosphatase (34-104) Units/L Troponin I (< 0.04) ng/mL B-Natriuretic Peptide 66 (Less than 100) pg/mL Serum Total Protein (6.4-8.9) g/dL Albumin (3.5-5.7) g/dL Globulin (2.4-3.5) g/dL Albumin/Globulin Ratio (1.1-2.2) Lipase (11-82) Units/L Attestation Statement - Attestation Attestation: I, Charlie Mcgovern, examined this patient and my medical decision-making was reviewed with the LENS GAUGER/PA/Advanced Practice Nurse/Resident Physician. I agree with the documented findings, disposition and treatment plan as described except to the extent set forth below. 57-year-old male presents emergency Department with concerns of shortness of breath. Patient has a history of COPD, feels that he is having worsening of his COPD exacerbation. Patient was recently admitted to the hospital for similar circumstances and discharge within the past few days. Patient has wheezing on the bilateral posterior lung carmen consistent with COPD exacerbation. He has mild tachypnea with conversation. He states he becomes significantly dyspneic with minimal exertion. Patient had a x-ray which showed possible left lower lobe infiltrate. He was afebrile emergency department pain however and did not have a leukocytosis. He will be treated as healthcare associated pneumonia and admitted to the hospital. Patient had elevated lactic acid level on laboratory testing.
[2018-01-04] MEDS ORDERED: Naloxone 0.4 MG/ML INJ IVP PRN (01:16)
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
[2018-01-04 02:31] LABS: Hematocrit 29.5 % (37.5-50.1); Hemoglobin 9.7 g/dL (12.9-16.9); Mean Corpuscular HGB Conc 32.9 g/dL (31.6-35.5); Mean Corpuscular Volume 88.1 fL (83.0-100.0); Mean Platelet Volume 9.7 fL (9.4-12.4); Platelet Count 336 K/mcL (140-400); Red Blood Count 3.35 M/mcL (4.19-5.50); Red Cell Distribution Width 14.2 % (11.5-14.5)
[2018-01-04 02:47] LABS: BUN/Creatinine Ratio 26 (6-26); Blood Urea Nitrogen 15 mg/dL (6-20); Calcium 9.1 mg/dL (8.6-10.3); Carbon Dioxide 30 mEq/L (23-29); Chloride 103 mEq/L (98-107); Glucose 241 mg/dL (70-105); Osmolality,Calculated 295 (280-300); Potassium 4.1 mEq/L (3.5-5.1); Sodium 138 mEq/L (136-145); eGFR For Non-African Americans > 60 (> 60)
[2018-01-04] MEDS: Levofloxacin 750 MG/150 ML 750 MG/150 ML BAG IVPB SCH (03:24)
[2018-01-04] MEDS ORDERED: Acetaminophen 325 MG TABLET PO PRN (03:38)
[2018-01-04] MEDS: Albuterol 2.5 MG/3 ML NEBULIZER IH SCH ×6 (04:05→23:03)
[2018-01-04] MEDS: Ipratropium/Albuterol Neb 3 ML IH SCH ×4 (04:07→23:03)
[2018-01-04] MEDS: MethylPREDNISolone 40 MG/ML VIAL IVP SCH ×4 (05:37→23:32)
[2018-01-04] MEDS: *HR* Rivaroxaban 10 MG TABLET PO SCH (08:06)
[2018-01-04] MEDS: Piperacillin/Tazobactam 3.375 GM in 0.9 % Sodium Chloride Mini Bag 100 ML IVPB SCH ×3 (08:06→23:32)
[2018-01-04] MEDS: Furosemide 20 MG TABLET PO SCH ×3 (08:06→20:55)
[2018-01-04] MEDS: Gabapentin 300 MG CAPSULE PO SCH ×3 (08:06→20:55)
--- NOTE | 2018-01-04 08:20 | Electrocardiograph Report ---
[place] [id number] Test Date: 2018-01-03 Pat Name: Jason Blanchard Department: Room: 3B16 Gender: M [employer] Technician: : 1960 Requested By: Charlie Mcgovern Order Number: [id number] Reading MD: Josselin Friedman Measurements Intervals [place] Rate: 80 P: 105 PA: 147 QRS: 163 QRSD: 81 T: 139 QT: 387 QTc: 447 Interpretive Statements Right and left arm electrode reversal Sinus rhythm Abnormal R-wave progression, early transition Electronically Signed On 01-04-2018 8:18:22 EDT by Josselin Friedman
[2018-01-04] MEDS ORDERED: Levofloxacin 750 MG/150 ML 750 MG/150 ML BAG IVPB SCH (09:00)
--- NOTE | 2018-01-04 15:52 | Internal Med Progress Note ---
Hospitalist Progress Note - Encounter Date of Encounter: 01/04/18 Time of Encounter: 09:50 - Subjective Interval History: Pt was seen and assessed at bedside at 0950. He is alert, awake, flat affect. He states that when he gets home he does not get better and has to return. He states that this time, "my AC was too cold and my back got cold and I had to come back." He denies headache, dizziness, visino changes, chest pain, abdominal pain, n/v/d, constipation. - Exam Vitals: Temp Pulse Resp BP Pulse Ox 98.0 F 70 18 104/61 94 01/04/18 15:05 01/04/18 15:05 01/04/18 15:05 01/04/18 15:05 01/04/18 15:05 Exam: General: Pt resting quietly on bed, no distress. Skin: pwd, no rashes, lesions, redness Neurological: Pt is alert and awake, oriented x 3, Speech is clear, PERRLA, EOMI , no nystagmus, no pronator drift. strength equal x 4 extremities HEENT: mucous mumbranes moist, no conjuctival pallor Neck: supple, no tracheal deviation, no lymphadenopathy, tenderness, no thyromegaly Heart: S1S2 heard without gallops, clicks, murmurs, no bradycardia or tachycardia, pt has no peripheral edema, pedal and radial pulses palpable bilaterally. Lungs: Diminished throughout without wheezing, rales, or ronchi, respirations are unlabored Abdomen: soft and non tender with bowel sound present, no hepatomegaly. Psych: Normal affect with good eye contact - Assessment and Plan (1) Healthcare-associated pneumonia Current Visit: Yes Status: Acute Assessment and Plan: Patient with recent hospital admission 2. Met sepsis criteria on admission with tachycardia, tachypnea, elevated lactic. Lactic has returned to baseline, vitals are stable and pt is afebrile. Continue vancomycin, Zosyn, Levaquin IV. Continue nebulizer treatments, IV Solumedrol, Duonebs Continue telemetry Continue 02 as needed to maintain sats > 92% Chest X-Ray 01/03/18 20:00 IMPRESSION: Mild left basilar opacities compatible with atelectasis versus pneumonia. D/ / Roni Costello MD / Roni Costello MD Interpreting Provider: Roni Costello MD (2) Acute exacerbation of chronic obstructive airways disease Current Visit: Yes Status: Acute Assessment and Plan: Acute exacerbation of COPD, likely triggered by pneumonia. Patient also has recent history of PE. Plan as above. (3) Chest tightness Current Visit: Yes Status: Acute Assessment and Plan: Pt denies today on exam. Likely secondary to COPD/HCAP. Troponins negative. (4) Dyspnea Current Visit: Yes Status: Chronic Assessment and Plan: Chronic. Worsened by AECOPD and HCAP. Plan as above. (5) Elevated lactic acid level Current Visit: Yes Status: Resolved (6) Essential hypertension Current Visit: Yes Status: Chronic Assessment and Plan: Stable. Continue to monitor vitals and continue current medications. (7) GERD (gastroesophageal reflux disease) Current Visit: Yes Status: Chronic Assessment and Plan: Continue home medicaitons. - Time Spent with Patient Total time spent is greater than 50% in coordination of care (as documented) at patient's floor/unit and/or counseling patient: less than 15 minutes Plan of Care Discussed with: patient Internal Medicine: Result - Labs CBC & Chem 7: 01/04/18 02:03 01/04/18 02:03 Labs: Short CBC 01/04/18 Range/Units 02:03 WBC 6.6 (4.3-11.1) K/mcL Hgb 9.7 L (12.9-16.9) g/dL Hct 29.5 L (37.5-50.1) % Plt Count 336 (140-400) K/mcL BMP 01/04/18 02:03 Sodium 138 Potassium 4.1 Chloride 103 Carbon Dioxide 30 H BUN 15 Creatinine 0.57 L Glucose 241 H Calcium 9.1 Cardiac Enzymes 01/04/18 01/04/18 Range/Units 02:03 08:05 Troponin I < 0.03 < 0.03 (< 0.04) ng/mL Consult Discharge Plan - Plan Referrals: Marilyn Rojas, PLANT OPERATIONS VICE PRESIDENT [Primary Care Provider] - (4) Dyspnea Qualifiers: Dyspnea type: unspecified Qualified Code(s): R06.00 - Dyspnea, unspecified (7) GERD (gastroesophageal reflux disease) Qualifiers: Esophagitis presence: without esophagitis Qualified Code(s): K21.9 - Gastro- esophageal reflux disease without esophagitis
[2018-01-05] MEDS: Albuterol 2.5 MG/3 ML NEBULIZER IH SCH ×6 (04:18→22:45)
[2018-01-05] MEDS: Ipratropium/Albuterol Neb 3 ML IH SCH ×4 (04:19→22:36)
[2018-01-05] MEDS: Levofloxacin 750 MG/150 ML 750 MG/150 ML BAG IVPB SCH (05:01)
[2018-01-05] MEDS: MethylPREDNISolone 40 MG/ML VIAL IVP SCH ×3 (06:18→16:39)
[2018-01-05] MEDS: Gabapentin 300 MG CAPSULE PO SCH ×3 (07:50→20:28)
[2018-01-05] MEDS: Piperacillin/Tazobactam 3.375 GM in 0.9 % Sodium Chloride Mini Bag 100 ML IVPB SCH ×2 (07:50→16:41)
[2018-01-05] MEDS: *HR* Rivaroxaban 10 MG TABLET PO SCH (07:50)
[2018-01-05] MEDS: Furosemide 20 MG TABLET PO SCH ×3 (07:50→20:28)
[2018-01-05] MEDS ORDERED: Saline Nasal Spray 44 ML BOTTLE NS PRN (13:50)
--- NOTE | 2018-01-05 16:52 | Discharge Summary ---
Orders not resulted at time of discharge: Pending orders 01/06/18 04:00 Hemoglobin and Hematocrit [HEME] AM 0400 Date of Encounter: 01/05/18 Time of Encounter: 08:30 - Discharge Diagnosis (1) Healthcare-associated pneumonia Priority: Primary Status: Acute Assessment and Plan: Patient with recent hospital admission 2. Met sepsis criteria on admission with tachycardia, tachypnea, elevated lactic, resolved.. Lactic has returned to baseline, vitals are stable and pt is afebrile. Continue vancomycin, Zosyn, Levaquin IV. Continue nebulizer treatments, IV Solumedrol, Duonebs Continue telemetry Continue 02 as needed to maintain sats > 92% Chest X-Ray 01/03/18 20:00 IMPRESSION: Mild left basilar opacities compatible with atelectasis versus pneumonia. D/ / Roni Costello MD / Roni Costello MD Interpreting Provider: Roni Costello MD (2) Acute exacerbation of chronic obstructive airways disease Priority: Secondary Status: Acute Assessment and Plan: Acute exacerbation of COPD, likely triggered by pneumonia. Patient also has recent history of PE. Lungs are clear and diminished throughout, pt denies productive cough. Pt is in no obvious distress. Pt reports feeling some better today. He is at his baseline 02 use. Continue IV antibiotics, 02 as needed to maintain sats > 92%, nebulizer treatments, and IV solumedrol. I have started to taper dose. (3) Chest tightness Priority: Secondary Status: Acute Assessment and Plan: Continues to deny. Likely secondary to COPD/HCAP. Troponins negative. (4) Dyspnea Priority: Secondary Status: Chronic Assessment and Plan: Chronic. Worsened by AECOPD and HCAP. Plan as above. Qualifiers: Dyspnea type: unspecified Qualified Code(s): R06.00 - Dyspnea, unspecified (5) Elevated lactic acid level Priority: Secondary Status: Resolved Assessment and Plan: Resolved. (6) Essential hypertension Priority: Secondary Status: Chronic Assessment and Plan: Stable.Well controlled Continue to monitor vitals and continue current medications. (7) GERD (gastroesophageal reflux disease) Priority: Secondary Status: Chronic Assessment and Plan: Continue home medicaitons. Qualifiers: Esophagitis presence: without esophagitis Qualified Code(s): K21.9 - Gastro -esophageal reflux disease without esophagitis Hospital course: Mr. Blanchard is a 57 year old male - Time Spent with Patient Total time spent providing and/or coordinating discharge services: - Discharge Medications Home Medications: Docusate [Colace] 100 mg PO BID 07/25/17 [History] Ipratropium/Albuterol Neb [Duoneb] 3 ml IH Q4H PRN 07/25/17 [History] Oxygen 4 l NS AD 07/25/17 [History] Roflumilast [Daliresp] 500 mcg PO DAILY 07/25/17 [History] Metoprolol [Lopressor] 25 mg PO BID 09/10/17 [History] Acetaminophen [Tylenol] 650 mg PO Q6HR PRN tablet 09/20/17 [Rx] Albuterol Sulfate [Albuterol Inhaler] 2 puff IH Q4H PRN #1 inhaler 09/20/17 [Rx] Furosemide [Lasix] 40 mg PO TID #90 tab 09/20/17 [Rx] Mometasone/Formoterol [Dulera 200 Mcg/5 Mcg Inhaler] 2 puff IH BID #1 hfa.aer.ad 09/20/17 [Rx] Rivaroxaban [Xarelto] 20 mg PO DAILY #60 tablet 09/20/17 [Rx] Umeclidinium [place] [Incruse Ellipta] 62.5 mcg IH DAILY #1 blst.w.dev 09/20/17 [Rx] Omeprazole [PriLOSEC] 20 mg PO 0730 09/30/17 [History] Loratadine [Claritin] 10 mg PO DAILY #30 tablet 11/09/17 [Rx] Budesonide Neb [Pulmicort Neb] 0.5 mg IH BIDRESP inhsol 11/14/17 [Rx] Gabapentin [Neurontin] 300 mg PO TID 12/31/17 [History] Tiotropium [place] [Spiriva Respimat] 2 puff IH DAILY 12/31/17 [History] Triamterene/HCTZ 37.5/25mg [Dyazide] 1 tab PO DAILY 12/31/17 [History] Azithromycin [Zithromax] 250 mg PO DAILY #4 tablet 01/01/18 [Rx] predniSONE [PredniSONE] 10 mg PO DAILY #16 tablet 01/01/18 [Rx] Allergies/Adverse Reactions: 3 Allergy/AdvReac Type Severity Reaction Status Date / Time levofloxacin AdvReac Blurry Verified 01/03/18 22:27 Vision Date of admission: 01/03/18 22:27 Primary care physician: Marilyn Rojas CNP Consults: 01/03/18 23:50 Consult to E/M Engineer [CONS] Routine Reason for SW Consult: Discharge planing. pt is from home alone. 01/04/18 01:25 Consult to Nurse Navigator [CONS] Routine Comment: Discharging clinician: Radha Thibodeaux Anticipated date of discharge: 01/05/18 - Constitutional Vitals: Temp Pulse Resp BP Pulse Ox 98.3 F 54 18 125/70 92 01/05/18 15:04 01/05/18 15:04 01/05/18 15:57 01/05/18 15:04 01/05/18 15:57 General appearance: Present: cooperative, mild distress, A&O X 3, pleasant, answers questions appropriately - Patient Status Disposition: Home, Self-Care Condition: Good Functional capacity at discharge: independent ambulation Overall status at discharge: patient is progressing back to baseline - Discharge Instructions Follow Up With: Marilyn Rojas CNP [Primary Care Provider] - Additional Instructions: Take your medications as directed. Follow up with your PCP in the next 5-7 days Follow with your nurse navigator Return to the ER as needed for any other problems or concerns Wear your 0xygen at all times Stay with your sister until you are feeling well enough to return home. - Diet and Activity Activity: increase activity as tolerated Diet: advance to your usual diet
[2018-01-05] MEDS ORDERED: Isovue-370 500 ML INFUS..BTL IV ONE (17:02)
[2018-01-06] MEDS: Piperacillin/Tazobactam 3.375 GM in 0.9 % Sodium Chloride Mini Bag 100 ML IVPB SCH ×2 (01:40→09:50)
[2018-01-06] MEDS: Albuterol 2.5 MG/3 ML NEBULIZER IH SCH ×3 (03:01→11:05)
[2018-01-06] MEDS: Ipratropium/Albuterol Neb 3 ML IH SCH ×2 (03:13→11:06)
[2018-01-06] MEDS ORDERED: MethylPREDNISolone 40 MG/ML VIAL IVP SCH (06:00)
[2018-01-06 06:24] LABS: Basophils % 0.1 %; Hematocrit 34.1 % (37.5-50.1); Hemoglobin 10.8 g/dL (12.9-16.9); Immature Granulocytes % 0.5 % (0-4); Lymphocytes # 1.7 K/mcL (0.6-4.6); Mean Corpuscular HGB Conc 31.7 g/dL (31.6-35.5); Mean Corpuscular Hemoglobin 28.1 pg (28.0-33.3); Mean Corpuscular Volume 88.8 fL (83.0-100.0); Mean Platelet Volume 9.6 fL (9.4-12.4); Monocytes # 0.8 K/mcL (0.0-1.3); Monocytes % 6.6 %; Neutrophils # 9.4 K/mcL (1.6-8.9); Platelet Count 379 K/mcL (140-400); Red Blood Count 3.84 M/mcL (4.19-5.50); Red Cell Distribution Width 14.5 % (11.5-14.5); Segmented Neutrophils % 78.8 %
[2018-01-06 06:41] LABS: BUN/Creatinine Ratio 26 (6-26); Blood Urea Nitrogen 20 mg/dL (6-20); Calcium 9.3 mg/dL (8.6-10.3); Carbon Dioxide 37 mEq/L (23-29); Chloride 100 mEq/L (98-107); Glucose 133 mg/dL (70-105); Osmolality,Calculated 283 (280-300); Potassium 3.6 mEq/L (3.5-5.1); Sodium 134 mEq/L (136-145); eGFR For Non-African Americans > 60 (> 60)
--- NOTE | 2018-01-06 07:53 | Physician Discharge Referral ---
Home Health/Hosp Referral Info Transfer to: Home Health Provider in Charge Post Discharge: PCP - Diagnosis (1) Healthcare-associated pneumonia Priority: Secondary Status: Acute (2) Acute exacerbation of chronic obstructive airways disease Priority: Primary Status: Acute (3) Chest tightness Priority: Secondary Status: Resolved (4) Dyspnea Priority: Secondary Status: Chronic (5) Elevated lactic acid level Priority: Secondary Status: Resolved (6) Essential hypertension Priority: Secondary Status: Chronic (7) GERD (gastroesophageal reflux disease) Priority: Secondary Status: Chronic - Respiratory Orders Oxygen / L per min Smoking Cessation: Smoking cessation has been advised. For more information, call the [place] Tobacco Quit Line at 0-908-VFDK-NOW. - Diet/Nutrition Diet/Nutrition Orders: Regular - Activity Activity Orders: Up ad harish - Services Needed Following services are medically necessary services: Nursing - Transfer Medications Home Medications: Docusate [Colace] 100 mg PO BID 07/25/17 [History] Ipratropium/Albuterol Neb [Duoneb] 3 ml IH Q4H PRN 07/25/17 [History] Oxygen 4 l NS AD 07/25/17 [History] Roflumilast [Daliresp] 500 mcg PO DAILY 07/25/17 [History] Metoprolol [Lopressor] 25 mg PO BID 09/10/17 [History] Acetaminophen [Tylenol] 650 mg PO Q6HR PRN tablet 09/20/17 [Rx] Albuterol Sulfate [Albuterol Inhaler] 2 puff IH Q4H PRN #1 inhaler 09/20/17 [Rx] Furosemide [Lasix] 40 mg PO TID #90 tab 09/20/17 [Rx] Mometasone/Formoterol [Dulera 200 Mcg/5 Mcg Inhaler] 2 puff IH BID #1 hfa.aer.ad 09/20/17 [Rx] Rivaroxaban [Xarelto] 20 mg PO DAILY #60 tablet 09/20/17 [Rx] Umeclidinium [place] [Incruse Ellipta] 62.5 mcg IH DAILY #1 blst.w.dev 09/20/17 [Rx] Omeprazole [PriLOSEC] 20 mg PO 0730 09/30/17 [History] Loratadine [Claritin] 10 mg PO DAILY #30 tablet 11/09/17 [Rx] Budesonide Neb [Pulmicort Neb] 0.5 mg IH BIDRESP inhsol 11/14/17 [Rx] Gabapentin [Neurontin] 300 mg PO TID 12/31/17 [History] Tiotropium [place] [Spiriva Respimat] 2 puff IH DAILY 12/31/17 [History] Triamterene/HCTZ 37.5/25mg [Dyazide] 1 tab PO DAILY 12/31/17 [History] Azithromycin [Zithromax] 250 mg PO DAILY #4 tablet 01/01/18 [Rx] predniSONE [PredniSONE] 10 mg PO DAILY #16 tablet 01/01/18 [Rx] Allergies/Adverse Reactions: 3 Allergy/AdvReac Type Severity Reaction Status Date / Time levofloxacin AdvReac Blurry Verified 01/03/18 22:27 [place] Certification: Further, I certify that my clinical findings support that this patient is homebound (i.e. absences from home require considerable and taxing effort and are for medical reasons or gnosticist services or infrequently or short duration when for other reasons) because: Homebound Reason: Leaving home requires considerable and taxing effort due to condition, Severity of cardiac or pulmonary status limits activity tolerance Attestation: My signature below is to certify that this patient is under my care and that I, or nurse practitioner, or a physician's patient support assistant working with me, has a face-to -face encounter with this patient.
[2018-01-06] MEDS: Levofloxacin 750 MG/150 ML 750 MG/150 ML BAG IVPB SCH (07:55)
[2018-01-06] MEDS: Furosemide 20 MG TABLET PO SCH (07:55)
[2018-01-06] MEDS: Gabapentin 300 MG CAPSULE PO SCH (07:55)
[2018-01-06] MEDS: *HR* Rivaroxaban 10 MG TABLET PO SCH (07:55)
[2018-01-06] MEDS ORDERED: predniSONE 20 MG TABLET PO SCH (09:00)
--- NOTE | 2018-01-06 10:53 | Internal Med Progress Note ---
Hospitalist Progress Note - Encounter Date of Encounter: 01/06/18 Time of Encounter: 08:40 - Subjective Interval History: Pt was seen and assessed at bedside at 0840. He is alert, awake, pleasant. He states that he is feeling better and is ready to go home today. He states that he is going to stay with his sister for a few weeks until he feels ok to go back home. He denies headache, dizziness, visino changes, chest pain, abdominal pain, n/v/d, constipation. - Exam Vitals: Temp Pulse Resp BP Pulse Ox 97.5 F L 49 16 123/73 98 01/06/18 07:39 01/06/18 07:39 01/06/18 07:39 01/06/18 07:39 01/06/18 03:35 Exam: General: Pt resting quietly on bed, no distress. Skin: pwd, no rashes, lesions, redness Neurological: Pt is alert and awake, oriented x 3, Speech is clear, PERRLA, EOMI , no nystagmus, no pronator drift. strength equal x 4 extremities HEENT: mucous mumbranes moist, no conjuctival pallor Neck: supple, no tracheal deviation, no lymphadenopathy, tenderness, no thyromegaly Heart: S1S2 heard without gallops, clicks, murmurs, no bradycardia or tachycardia, pt has no peripheral edema, pedal and radial pulses palpable bilaterally. Lungs: Diminished throughout without wheezing, rales, or ronchi, respirations are unlabored. Better aeration today thatn in past exams. Abdomen: soft and non tender with bowel sound present, no hepatomegaly. Psych: Normal affect with good eye contact - Assessment and Plan (1) Healthcare-associated pneumonia Current Visit: Yes Status: Acute Assessment and Plan: Patient with recent hospital admission 2. Met sepsis criteria on admission with tachycardia, tachypnea, elevated lactic, resolved.. Lactic has returned to baseline, vitals are stable and pt remains afebrile. Pt is being sent home with po Levaquin 750mg po daily x 5 doses to complete course. He states that he has home 02, does not need refills on inhalers, and has been given rx for Duonebs. Chest X-Ray 01/03/18 20:00 IMPRESSION: Mild left basilar opacities compatible with atelectasis versus pneumonia. D/ / Roni Costello MD / Roni Costello MD Interpreting Provider: Roni Costello MD (2) Acute exacerbation of chronic obstructive airways disease Current Visit: Yes Status: Acute Assessment and Plan: Acute exacerbation of COPD, likely triggered by pneumonia. Patient also has recent history of PE. Lungs are clear and diminished throughout, pt denies productive cough. Pt is in no obvious distress. Better aeration today than in past days. Pt reports feeling better today and well enough to go home. He is at his baseline 02 use and has been compliant with bipap while sleeping. Continue Po steroid taper, po Levaquin, 02 at home, and bronchodilators. (3) Chest tightness Current Visit: Yes Status: Resolved Assessment and Plan: Resolved. Pt denies chest pain or dyspnea. (4) Dyspnea Current Visit: Yes Status: Chronic Assessment and Plan: Chronic. Worsened by AECOPD and HCAP. Plan as above. (5) Elevated lactic acid level Current Visit: Yes Status: Resolved Assessment and Plan: Resolved. (6) Essential hypertension Current Visit: Yes Status: Chronic Assessment and Plan: Stable, chronic. Well controlled Continue current medications. (7) GERD (gastroesophageal reflux disease) Current Visit: Yes Status: Chronic Assessment and Plan: Continue home medications. - Time Spent with Patient Total time spent is greater than 50% in coordination of care (as documented) at patient's floor/unit and/or counseling patient: less than 15 minutes Plan of Care Discussed with: patient Internal Medicine: Result - Labs CBC & Chem 7: 01/06/18 04:00 01/06/18 04:00 Labs: Short CBC 01/06/18 Range/Units 04:00 WBC 11.9 H D (4.3-11.1) K/mcL Hgb 10.8 L (12.9-16.9) g/dL Hct 34.1 L (37.5-50.1) % Plt Count 379 (140-400) K/mcL Neutrophils # 9.4 H (1.6-8.9) K/mcL BMP 01/06/18 04:00 Sodium 134 L Potassium 3.6 Chloride 100 Carbon Dioxide 37 H BUN 20 Creatinine 0.78 Glucose 133 H Calcium 9.3 - Impressions Impressions Chest CTA 01/05/18 17:02 IMPRESSION: No evidence of pulmonary embolism or acute pulmonary abnormality. Moderate emphysema. D/ / Zelda Barkley Cha, MD / Zelda Barkley Cha, MD Interpreting Provider: Zelda Barkley Cha, MD Consult Discharge Plan - Plan Additional Instructions: Take your medications as directed. Follow up with your PCP in the next 5-7 days Follow with your nurse navigator Return to the ER as needed for any other problems or concerns Wear your 0xygen at all times Stay with your sister until you are feeling well enough to return home. Referrals: Marilyn Rojas CNP [Primary Care Provider] - Prescriptions: Ipratropium/Albuterol Neb [Duoneb] 3 ml IH Q4H PRN #60 inhsol PRN Reason: Wheezing predniSONE [PredniSONE] 10 mg PO DAILY #32 tablet (4) Dyspnea Qualifiers: Dyspnea type: unspecified Qualified Code(s): R06.00 - Dyspnea, unspecified (7) GERD (gastroesophageal reflux disease) Qualifiers: Esophagitis presence: without esophagitis Qualified Code(s): K21.9 - Gastro- esophageal reflux disease without esophagitis
[2018-01-06 11:18] VITALS: BP 121/66
[2018-01-06] MEDS ORDERED: Aminoglycoside Consult 1 EACH MC ONE (13:29)
== END 2018-01-06 13:30 | disposition home or self-care (01) ==
LOC: 3BNU 19:43 → EMEROOARM 19:43 → 3BNU 23:40
PROVIDERS: ADMIT Internal Medicine; ATTEND Internal Medicine

== ENCOUNTER 2018-01-15 17:45 | Observation (INO) ==
[2018-01-15] MEDS ORDERED: Ipratropium/Albuterol Neb 3 ML IH ONE (18:25)
[2018-01-15] MEDS ORDERED: predniSONE 20 MG TABLET PO ONE (18:44)
--- NOTE | 2018-01-15 18:47 | Emergency Department Note ---
Disposition Clinical Impression: COPD exacerbation Disposition: Admitted As Inpatient Condition: Good Referrals: Marilyn Rojas CNP [Primary Care Provider] - Forms: ED Satisfaction Letter General Adult HPI - General Chief complaint: ED Shortness of Breath/Dyspnea Stated complaint: PHYLLIS Time Seen by Provider: 01/15/18 18:12 Source: patient Mode of arrival: ambulatory Limitations: no limitations Nursing Notes Reviewed: Yes Vital Signs Reviewed: Yes - History of Present Illness HPI Narrative: 58-year-old male with significant past medical history of COPD currently on 4 L nasal cannula at home presenting to the emergency department chief complaint of increasing shortness of breath over the past 3-4 days. Patient states he was recently admitted for pneumonia, treated and discharged home. He was feeling good until approximately 3-4 days ago. He has noticed use had increased dyspnea especially while exerting himself. He denies any chest pain, dizziness or headache. He states he has been trying all of his at-home nebulizers, inhalers without any change in symptoms. Pain Scale: 4 - Related Data Home Medications Medication Instructions Recorded Confirmed Docusate [Colace] 100 mg PO BID 07/25/17 01/15/18 Oxygen 4 l NS AD 07/25/17 01/15/18 Roflumilast [Daliresp] 500 mcg PO DAILY 07/25/17 01/15/18 Metoprolol [Lopressor] 25 mg PO BID 09/10/17 01/15/18 Omeprazole [PriLOSEC] 20 mg PO 0730 09/30/17 01/15/18 Gabapentin [Neurontin] 300 mg PO TID 12/31/17 01/15/18 Tiotropium [place] [Spiriva 2 puff IH DAILY 12/31/17 01/15/18 Respimat] Triamterene/HCTZ 37.5/25mg 1 tab PO DAILY 12/31/17 01/15/18 [Dyazide] Previous Rx's Medication Instructions Recorded Acetaminophen [Tylenol] 650 mg PO Q6HR PRN tablet 09/20/17 Albuterol Sulfate [Albuterol 2 puff IH Q4H PRN #1 inhaler 09/20/17 Inhaler] Furosemide [Lasix] 40 mg PO TID #90 tab 09/20/17 Mometasone/Formoterol [Dulera 200 2 puff IH BID #1 hfa.aer.ad 09/20/17 Mcg/5 Mcg Inhaler] Rivaroxaban [Xarelto] 20 mg PO DAILY #60 tablet 09/20/17 Loratadine [Claritin] 10 mg PO DAILY #30 tablet 11/09/17 Ipratropium/Albuterol Neb [Duoneb] 3 ml IH Q4H PRN #60 inhsol 01/06/18 Levofloxacin [Levaquin] 750 mg PO DAILY #5 tablet 01/06/18 Saline Nasal [place] [[place] Nasal 2 spray NS Q2H PRN bottle 01/06/18 [place]] predniSONE [PredniSONE] 10 mg PO DAILY #32 tablet 01/06/18 Allergies Allergy/AdvReac Type Severity Reaction Status Date / Time levofloxacin AdvReac Blurry Verified 01/03/18 22:27 Vision All systems ED: reviewed and negative except as stated. Constitutional: Denies: fever, chills Eyes: Reports: as per HPI ENT ED: Reports: as per HPI Cardiovascular: Denies: chest pain, palpitations Respiratory: Reports: dyspnea, wheezes. Denies: hemoptysis Gastrointestinal: Reports: as per HPI Genitourinary: Reports: as per HPI Musculoskeletal: Reports: as per HPI Integumentary: Denies: rash Neurological: Denies: weakness, numbness, paresthesias Psychiatric: Reports: as per HPI Endocrine: Reports: as per HPI Hematological/Lymphatic: Reports: as per HPI Allergic/Immunologic: Reports: as per HPI Past Medical History - Past Medical History Attestation: Yes The following information was validated with the patient. Medical history: Reports: asthma, CHF, COPD, hyperlipidemia, hypertension, pulmonary embolus Surgical history: Reports: no surgical history Psychiatric history: Reports: anxiety, depression - Social History Smoking Status: Former smoker Smokeless Tobacco Status: No Alcohol use: Reports: rarely Drug use: Reports: none Physical Exam - General Limitations: no limitations General appearance: alert, in no apparent distress - Head Head exam: atraumatic, normocephalic, normal inspection - Eye Eye exam: Present: normal appearance. Absent: scleral icterus, conjunctival injection - ENT ENT exam: normal exam, mucous membranes moist - Neck Neck exam: Present: normal inspection, full ROM. Absent: tenderness, meningismus - Chest Chest inspection: Present: normal inspection, symmetric chest wall rise. Absent : tenderness, rash - Respiratory Respiratory exam: Present: wheezes (Expiratory wheezing throughout. Coarse breath sounds.). Absent: respiratory distress - Cardiovascular Cardiovascular exam: Present: regular rate, normal rhythm, normal heart sounds - Abdominal Exam Abdominal exam: Present: soft, Non-Tender. Absent: distention, guarding, rebound - Extremities Exam Extremities exam: Present: normal inspection, full ROM - Neurological Exam Neurological exam: Present: alert, oriented X3 - Psychiatric Psychiatric exam: Present: normal affect, normal mood - Skin Skin exam: Present: warm, intact Course Course Narrative: 58-year-old male presenting for COPD exacerbation. Patient has been using nebulizers and inhalers at home with minimal to no relief. Patient recently admitted for pneumonia but treated. Patient denies any fevers or productive sputum. Patient is alert and oriented 3 in the room with stable vital signs. At this time will plan basic laboratory analysis including CBC and BMP. We will also obtain an EKG and a two-view chest x-ray. Disposition most likely admission for COPD exacerbation but pending results. Patient agrees with this plan. - Reevaluation(s) Reevaluation #1: Patient laboratory analysis has results and and at baseline for patient. After 3 [id number] DuoNeb patient still has some mild expiratory wheezing but states he is feeling better. Chest x-ray shows concern for possible focal consolidation but due to patient not having a white count or being febrile we will not treat him with antibiotics at this time. Due to COPD exacerbation and patient exhausting his home medications we will plan to admit this time. I spoke with the hospitalist crewman armoured personnel carrier [id number] Dr. Daly who agrees to accept the patient at this time. Patient is alert and oriented 3 in the room with stable vital signs. Vital Signs Temperature 98.0 F 01/15/18 17:49 Pulse Rate 77 01/15/18 17:49 Respiratory Rate 22 01/15/18 17:49 Blood Pressure 133/83 01/15/18 17:49 O2 Sat by Pulse Oximetry 94 01/15/18 17:49 Temperature 98.0 F 01/15/18 19:09 Pulse Rate 77 01/15/18 19:09 Respiratory Rate 20 01/15/18 19:09 Blood Pressure 133/83 01/15/18 19:09 O2 Sat by Pulse Oximetry 99 01/15/18 19:09 Oxygen Delivery Oxygen Delivery Nasal Cannula Medical Decision Making - Lab Data Result diagrams: 01/15/18 19:10 01/15/18 19:10 Lab Results 01/15/18 01/15/18 Range/Units 19:10 19:10 WBC 8.4 (4.3-11.1) K/mcL RBC 4.04 L (4.19-5.50) M/mcL Hgb 11.5 L (12.9-16.9) g/dL Hct 36.0 L (37.5-50.1) % MCV 89.1 (83.0-100.0) fL MCH 28.5 (28.0-33.3) pg MCHC 31.9 (31.6-35.5) g/dL RDW 14.6 H (11.5-14.5) % Plt Count 353 (140-400) K/mcL MPV 9.7 (9.4-12.4) fL Immature Gran % 0.4 (0-4) % Seg Neutrophils % 77.2 % Lymphocytes % 18.6 % Monocytes % 3.6 % Eosinophils % 0.1 % Basophils % 0.1 % Neutrophils # 6.5 (1.6-8.9) K/mcL Lymphocytes # 1.6 (0.6-4.6) K/mcL Monocytes # 0.3 (0.0-1.3) K/mcL Eosinophils # 0.0 (0.0-0.6) K/mcL Basophils # 0.0 (0.0-0.2) K/mcL Sodium 137 (136-145) mEq/L Potassium 4.6 (3.5-5.1) mEq/L Chloride 100 (98-107) mEq/L Carbon Dioxide 32 H (23-29) mEq/L BUN 12 (6-20) mg/dL Creatinine 0.48 L (0.70-1.30) mg/dL Est GFR ( Amer) > 60 (> 60) Est GFR (Non-Af Amer) > 60 (> 60) BUN/Creatinine Ratio 25 (6-26) Glucose 99 (70-105) mg/dL Calculated Osmolality 284 (280-300) Calcium 9.9 (8.6-10.3) mg/dL Troponin I < 0.03 (< 0.04) ng/mL - EKG Data EKG #1 EKG attestation: Yes I reviewed and interpreted this EKG. EKG results narrative: Sinus rhythm. 88 beats for minute. PVCs. WA interval 150, QRS 96, QTC 469. No sign of acute ST segment elevation or ischemia
--- NOTE | 2018-01-15 18:54 | Emergency Department Note ---
Disposition Clinical Impression: COPD exacerbation Disposition: Still a Patient Referrals: Marilyn Rojas INVESTIGATOR OPERATOR [Primary Care Provider] - Forms: ED Satisfaction Letter General Adult HPI - General Chief complaint: ED Shortness of Breath/Dyspnea Stated complaint: PHYLLIS Time Seen by Provider: 01/15/18 18:12 - History of Present Illness Pain Scale: 4 - Related Data Home Medications Medication Instructions Recorded Confirmed Docusate [Colace] 100 mg PO BID 07/25/17 01/03/18 Oxygen 4 l NS AD 07/25/17 01/03/18 Roflumilast [Daliresp] 500 mcg PO DAILY 07/25/17 01/03/18 Metoprolol [Lopressor] 25 mg PO BID 09/10/17 01/03/18 Omeprazole [PriLOSEC] 20 mg PO 0730 09/30/17 01/03/18 Gabapentin [Neurontin] 300 mg PO TID 12/31/17 01/03/18 Tiotropium [place] [Spiriva 2 puff IH DAILY 12/31/17 01/03/18 Respimat] Triamterene/HCTZ 37.5/25mg 1 tab PO DAILY 12/31/17 01/03/18 [Dyazide] Previous Rx's Medication Instructions Recorded Acetaminophen [Tylenol] 650 mg PO Q6HR PRN tablet 09/20/17 Albuterol Sulfate [Albuterol 2 puff IH Q4H PRN #1 inhaler 09/20/17 Inhaler] Furosemide [Lasix] 40 mg PO TID #90 tab 09/20/17 Mometasone/Formoterol [Dulera 200 2 puff IH BID #1 hfa.aer.ad 09/20/17 Mcg/5 Mcg Inhaler] Rivaroxaban [Xarelto] 20 mg PO DAILY #60 tablet 09/20/17 Umeclidinium [place] [Incruse 62.5 mcg IH DAILY #1 blst.w.dev 09/20/17 Ellipta] Loratadine [Claritin] 10 mg PO DAILY #30 tablet 11/09/17 Budesonide Neb [Pulmicort Neb] 0.5 mg IH BIDRESP inhsol 11/14/17 Ipratropium/Albuterol Neb [Duoneb] 3 ml IH Q4H PRN #60 inhsol 01/06/18 Levofloxacin [Levaquin] 750 mg PO DAILY #5 tablet 01/06/18 Saline Nasal [place] [[place] Nasal 2 spray NS Q2H PRN bottle 01/06/18 [place]] predniSONE [PredniSONE] 10 mg PO DAILY #32 tablet 01/06/18 Allergies Allergy/AdvReac Type Severity Reaction Status Date / Time levofloxacin AdvReac Blurry Verified 01/03/18 22:27 Vision Past Medical History - Past Medical History Medical history: Reports: asthma, CHF, COPD, hyperlipidemia, hypertension, pulmonary embolus Surgical history: Reports: no surgical history Psychiatric history: Reports: anxiety, depression - Social History Smoking Status: Former smoker Smokeless Tobacco Status: No Alcohol use: Reports: rarely Drug use: Reports: none Course - Reevaluation(s) Reevaluation #1: ED ATTESTATION NOTE: I examined this patient and my medical decision-making was reviewed with the Resident Physician/WASHTUB WORKER HELPER/PA/Student. I have personally performed a face to face evaluation on this patient & I agree with the documented findings, disposition and treatment plan as described except to the extent set forth below. Patient was seen with emergency medicine resident Anca Wilkinson please see copy of her note for details of this encounter Briefly: 58-year-old male smoker home O2 dependent COPD advanced age of was admitted 2 weeks ago for pneumonia increasing shortness of breath increasing oxygen requirements increased dyspnea on exertion for mild activities for the past 2-3 days. Follow respiratory wheezing with tachypnea and tachycardia oxygen was in the low 90s improved with oxygen. He should not getting triple DuoNeb steroids screening labs EKG chest x-ray and readmission. Disposition pending Time: 18:52 Vital Signs Temperature 98.0 F 01/15/18 17:49 Pulse Rate 77 01/15/18 17:49 Respiratory Rate 22 01/15/18 17:49 Blood Pressure 133/83 01/15/18 17:49 O2 Sat by Pulse Oximetry 94 01/15/18 17:49 Temperature 98.0 F 01/15/18 17:49 Pulse Rate 77 01/15/18 17:49 Respiratory Rate 20 01/15/18 18:39 Blood Pressure 133/83 01/15/18 17:49 O2 Sat by Pulse Oximetry 99 01/15/18 18:39 Oxygen Delivery Oxygen Delivery Nasal Cannula
[2018-01-15 19:24] LABS: Basophils % 0.1 %; Eosinophils % 0.1 %; Hemoglobin 11.5 g/dL (12.9-16.9); Immature Granulocytes % 0.4 % (0-4); Lymphocytes # 1.6 K/mcL (0.6-4.6); Lymphocytes % 18.6 %; Mean Corpuscular HGB Conc 31.9 g/dL (31.6-35.5); Mean Corpuscular Hemoglobin 28.5 pg (28.0-33.3); Mean Corpuscular Volume 89.1 fL (83.0-100.0); Mean Platelet Volume 9.7 fL (9.4-12.4); Monocytes # 0.3 K/mcL (0.0-1.3); Monocytes % 3.6 %; Neutrophils # 6.5 K/mcL (1.6-8.9); Platelet Count 353 K/mcL (140-400); Red Blood Count 4.04 M/mcL (4.19-5.50); Red Cell Distribution Width 14.6 % (11.5-14.5); Segmented Neutrophils % 77.2 %
[2018-01-15 19:44] LABS: Troponin I < 0.03 ng/mL (< 0.04)
[2018-01-15 19:45] LABS: BUN/Creatinine Ratio 25 (6-26); Blood Urea Nitrogen 12 mg/dL (6-20); Calcium 9.9 mg/dL (8.6-10.3); Carbon Dioxide 32 mEq/L (23-29); Chloride 100 mEq/L (98-107); Glucose 99 mg/dL (70-105); Osmolality,Calculated 284 (280-300); Potassium 4.6 mEq/L (3.5-5.1); Sodium 137 mEq/L (136-145); eGFR For Non-African Americans > 60 (> 60)
[2018-01-16] MEDS ORDERED: Naloxone 0.4 MG/ML INJ IVP PRN (00:09)
--- NOTE | 2018-01-16 00:16 | Internal Med History&Physical ---
Date of Encounter: 01/15/18 Time of Encounter: 23:50 Internal Medicine - H&P: HPI Chief complaint: COPD exacerbation Admitted From: Emergency Dept Plans for Post Hospital Care: Home History of present illness: Mr. Blanchard is a 58 year old male Patient presents for COPD exacerbation. He has been admitted for this multiple times in the last month. States that this time after discharge over a week ago he felt fine, but when he started to use his air conditioner he started feeling sick. His breathing became more difficult despite his breathing treatments and home oxygen. At the behest of his sister, he returned to the ER for further evaluation. He denies changes in his sputum, but has had to increase his oxygen and use his CPAP mask even during the day. In the ER he was given breathing treatments and steroids. Chest xray showed subtle opacity in the right lower lung but it could be superimposed shadow. Patient did not have elevated white count and no signs of infection. Upon my assessment, patient is feeling better. He requested a BiPAP mask for when he sleeps. He is tolerating the breathing treatments well and is at his home oxygen baseline requirement of 4L. Past Med Surg Social Fam HX - Past Medical History Medical history: asthma, CHF, COPD, hyperlipidemia, hypertension, pulmonary embolus Psychiatric history: anxiety, depression - Past Surgical History Surgical History: no surgical history - Social History Smoking Status: Former smoker Smokeless Tobacco Status: No Alcohol use: rarely Drug use: none - Family History Father Living Status: Hx Family Cancer: Yes (Colon) Mother Living Status: Internal Medicine - H&P: Meds Docusate [Colace] 100 mg PO BID 07/25/17 [History] Oxygen 4 l NS AD 07/25/17 [History] Roflumilast [Daliresp] 500 mcg PO DAILY 07/25/17 [History] Metoprolol [Lopressor] 25 mg PO BID 09/10/17 [History] Acetaminophen [Tylenol] 650 mg PO Q6HR PRN tablet 09/20/17 [Rx] Albuterol Sulfate [Albuterol Inhaler] 2 puff IH Q4H PRN #1 inhaler 09/20/17 [Rx] Furosemide [Lasix] 40 mg PO TID #90 tab 09/20/17 [Rx] Mometasone/Formoterol [Dulera 200 Mcg/5 Mcg Inhaler] 2 puff IH BID #1 hfa.aer.ad 09/20/17 [Rx] Rivaroxaban [Xarelto] 20 mg PO DAILY #60 tablet 09/20/17 [Rx] Omeprazole [PriLOSEC] 20 mg PO 0730 09/30/17 [History] Loratadine [Claritin] 10 mg PO DAILY #30 tablet 11/09/17 [Rx] Gabapentin [Neurontin] 300 mg PO TID 12/31/17 [History] Tiotropium [place] [Spiriva Respimat] 2 puff IH DAILY 12/31/17 [History] Triamterene/HCTZ 37.5/25mg [Dyazide] 1 tab PO DAILY 12/31/17 [History] Ipratropium/Albuterol Neb [Duoneb] 3 ml IH Q4H PRN #60 inhsol 01/06/18 [Rx] Levofloxacin [Levaquin] 750 mg PO DAILY #5 tablet 01/06/18 [Rx] Saline Nasal [place] [[place] Nasal [place]] 2 spray NS Q2H PRN bottle 01/06/18 [Rx] predniSONE [PredniSONE] 10 mg PO DAILY #32 tablet 01/06/18 [Rx] 3 Allergy/AdvReac Type Severity Reaction Status Date / Time levofloxacin AdvReac Blurry Verified 01/03/18 22:27 Vision All Systems PM: A 10-system review of systems was performed and is negative for pertinent findings except as documented above in the HPI. - Constitutional Vitals: Temp Pulse Resp BP Pulse Ox 97.9 F 76 16 116/72 94 01/15/18 23:02 01/15/18 23:02 01/15/18 23:02 01/15/18 23:02 01/15/18 23:02 General appearance: Present: cooperative, A&O X 3, pleasant, no acute distress, answers questions appropriately Exam: as above - Head Head exam: Present: normal inspection - Eye Eye exam: Present: EOMI, normal appearance - Respiratory Respiratory exam: Present: rhonchi, wheezes. Absent: chest wall tenderness, CTAB, respiratory distress - Cardiovascular Cardiovascular exam: Present: RRR. Absent: diastolic murmur, systolic murmur - GI/Abdominal GI/Abdominal exam: Present: normal bowel sounds, soft. Absent: tenderness - Extremities Exam Extremities exam: Present: warm, radial pulses palpable and symmetrical. Absent : pedal edema, tenderness - Neurological Exam Neurological exam: Present: no focal deficits, strengths equal and symetr throughout. Absent: motor sensory deficit, facial droop, speech deficit - Skin Skin exam: Present: dry, normal color, warm Additional comments: previous left ankle bruise has resolved. Internal Med - H&P Results - Labs CBC & Chem 7: 01/16/18 05:14 01/16/18 05:14 - Assessment and plan (1) Acute exacerbation of chronic obstructive airways disease Current Visit: No Status: Acute Assessment and plan: Patient presented with COPD exacerbation. Patient has had multiple previous admissions this month for this. Patient may benefit from senior care placement for close monitoring to help prevent future admissions. Breathing treatments Q4H with PRN albuterol Azithromycin 500mg IV for 3 days Prednisone 40mg daily oxygen supplementation CPAP mask at night (2) Dyspnea Current Visit: No Status: Chronic Assessment and plan: Improved Treatment as above. Qualifiers: Dyspnea type: unspecified Qualified Code(s): R06.00 - Dyspnea, unspecified - Time Spent With Patient Total time spent is greater than 50% in coordination of care (as documented) at patient's floor/unit and/or counseling patient: Greater than 35 minutes
[2018-01-16] MEDS: Azithromycin 500 MG in D5% in Water 250 ML IVPB SCH (00:39)
[2018-01-16] MEDS: Ipratropium/Albuterol Neb 3 ML IH SCH ×4 (04:03→21:33)
[2018-01-16 06:58] LABS: Hematocrit 31.5 % (37.5-50.1); Hemoglobin 10.1 g/dL (12.9-16.9); Mean Corpuscular HGB Conc 32.1 g/dL (31.6-35.5); Mean Corpuscular Volume 87.3 fL (83.0-100.0); Mean Platelet Volume 10.5 fL (9.4-12.4); Platelet Count 348 K/mcL (140-400); Red Blood Count 3.61 M/mcL (4.19-5.50); Red Cell Distribution Width 14.8 % (11.5-14.5)
[2018-01-16 07:18] LABS: BUN/Creatinine Ratio 25 (6-26); Blood Urea Nitrogen 15 mg/dL (6-20); Calcium 9.7 mg/dL (8.6-10.3); Carbon Dioxide 30 mEq/L (23-29); Chloride 100 mEq/L (98-107); Glucose 169 mg/dL (70-105); Osmolality,Calculated 289 (280-300); Potassium 4.4 mEq/L (3.5-5.1); Sodium 137 mEq/L (136-145); eGFR For Non-African Americans > 60 (> 60)
[2018-01-16] MEDS: Gabapentin 300 MG CAPSULE PO SCH ×3 (09:32→19:57)
[2018-01-16] MEDS: Furosemide 40 MG TABLET PO SCH ×3 (09:32→15:21)
[2018-01-16] MEDS: predniSONE 20 MG TABLET PO SCH (09:32)
--- NOTE | 2018-01-16 13:24 | Palliative - Consult Note ---
Date of Encounter: 01/16/18 Time of Encounter: 11:30 - Assessment and Plan (1) Weakness Current Visit: Yes Status: Acute Assessment and plan: Patient reports some weakness related to becoming short of breath with activity. Will order PT. (2) Acute exacerbation of chronic obstructive airways disease Current Visit: No Status: Acute Assessment and plan: Patient having repetative admissions for COPD. Patient denies dyspnea during evaulation. Continue Duonebs, diuresing, steroids and oxygen therapy. Oxygen 95 % during assessment on BiPAP. (3) Dyspnea Current Visit: No Status: Acute Assessment and plan: Denied dyspnea during assessment. Continue treatment plan per primary team. Qualifiers: Dyspnea type: shortness of breath Qualified Code(s): R06.02 - Shortness of breath; R06.00 - Dyspnea, unspecified; R06.01 - Orthopnea (4) Goals of care, counseling/discussion Current Visit: No Status: Acute Assessment and plan: Conducted meeting with patient regarding goals of care. Patient reports that he does have home health through [facility]. Denies calling for assistance when start feeling bad. Reports has stopped calling doctor when feeling bad as he does not receive return phone calls and he feels they do not answer the phones. Reports comes back to the hospital to feel better. Discussed disease progression of COPD; reports he knows that his lungs are only going to continue working for so long as the end stage COPD diagnosis and reports he plans to live as long as he can. Verbalized understanding of worsening symptoms and frequent return trips to hospital. Patient reports he does not mind coming back to the hospital as he "has nothing to do at home" and "they take really good care of me here." Discussed the fact that you can get another type of infection from the hospital, and he responded well it hasn't happened yet. Evaluated for plan of care when starting to get sick, versus waiting to have to come to ER; patient reports that he will just come back to hospital. Discussed potential of changing doctors to an [facility] doctor to ease getting ahold of his doctor; verbalized would be interested in trying. Discussed potential of hospice care. Explained services hospice could offer and what they would be able to provide him in regards to equipment and comfort. Patient refused potential of hospice at this time; would keep knowledge for the future. Discussed goals of care regarding worsening COPD. Patient desires to return to baseline and return home. Patient refused ECF placement and refused the possibility of living with his sister as he does not want to give up his trailer. Discussed possibility of short term stay for rehab to get physically better prior to returning home; patient refused. Discussed CODE STATUS. Patient desires to be FULL CODE. Desires CPR and verbalized understanding of risks and that if he was able to be revived should his heart stop that his lungs would not be better than before his heart stopped. Discussed potential of intubation and intubation termite renewal inspector leading to tracheostomy and PEG tube. Patient agreeable with CPR, Intubation, Peg tube, and tracheostomy to stay alive. Understood he could not live at home with new trach and half-way ventilator. Met with net manager on unit. She is going to attempt to reach patient's PCP and also attempt to schedule him an appointment with an [facility] PCP for further management of patient's COPD. net manager also informed inspector automatic typewriter that she would be reaching out to [employer] Professor for patient to follow up of patient due to continued poor compliance of COPD treatment. Palliative care will continue to follow to assist with further explanation and understanding of COPD diagnosis. Total time spent which is greater than 50% in coordination of care (as documented) at patient's floor/unit and/or counseling patient: Greater than 50 minutes, 30 minutes in coordination of care of goals of care at discharge and COPD diagnosis education. Palliative-CN HPI - Data of Consult Patient: new to practice Consult date: 01/16/18 Requesting Physician: Kaushal Daly MD Primary Care Provider: Marilyn Rojas CNP - Consult Narrative Palliative Care/Comfort Measures: Palliative care Reason for consult: End stage COPD; discharge planning. History of present illness: Mr. Blanchard is a 58 year old male Arrived to [facility] ER on 01/15/18 for Shortness of breath/dyspnea. PMH: COPD, Asthma, CHF, Hyperlipidemia, HTN, and Pulmonary Embolus. Patient lives home alone and has sister who checks on him; he also goes and stays with sister intermittently. Patient has been admitted to [facility] 12 times since July 2017, according to the record. Chest x-ray showing Subtle opacity in the RLL seen on frontal view and imaging features compatible with emphysema. Patient reported that it has been a week since his last admission and started to feel sick after using air conditioner. Patient admitted and medically managed for End Stage COPD. Palliative care consulted for: End-Stage COPD with frequent exacerbations, frequent admissions; recommendations for keeping patient at home. Patient sitting up in bed upon arrival for assessment, wearing BiPAP. Patient is alert and oriented times 3. Patient denies pain, anxiety, dyspnea, constipation, diarrhea, and nausea. Patient reports increased shortness of breath with exertion, but feeling better now. CC: Kaushal Daly MD Past Med Surg Social Fam HX - Past Medical History Medical history: asthma, CHF, COPD, hyperlipidemia, hypertension, pulmonary embolus Psychiatric history: anxiety, depression - Past Surgical History Surgical History: no surgical history - Social History Smoking Status: Former smoker Smokeless Tobacco Status: No Alcohol use: rarely Drug use: none - Family History Father Living Status: Hx Family Cancer: Yes (Colon) Mother Living Status: Medications and Allergies Docusate [Colace] 100 mg PO BID 07/25/17 [History] Oxygen 4 l NS AD 07/25/17 [History] Roflumilast [Daliresp] 500 mcg PO DAILY 07/25/17 [History] Metoprolol [Lopressor] 25 mg PO BID 09/10/17 [History] Acetaminophen [Tylenol] 650 mg PO Q6HR PRN tablet 09/20/17 [Rx] Albuterol Sulfate [Albuterol Inhaler] 2 puff IH Q4H PRN #1 inhaler 09/20/17 [Rx] Furosemide [Lasix] 40 mg PO TID #90 tab 09/20/17 [Rx] Mometasone/Formoterol [Dulera 200 Mcg/5 Mcg Inhaler] 2 puff IH BID #1 hfa.aer.ad 09/20/17 [Rx] Rivaroxaban [Xarelto] 20 mg PO DAILY #60 tablet 09/20/17 [Rx] Omeprazole [PriLOSEC] 20 mg PO 0730 09/30/17 [History] Loratadine [Claritin] 10 mg PO DAILY #30 tablet 11/09/17 [Rx] Gabapentin [Neurontin] 300 mg PO TID 12/31/17 [History] Tiotropium [place] [Spiriva Respimat] 2 puff IH DAILY 12/31/17 [History] Triamterene/HCTZ 37.5/25mg [Dyazide] 1 tab PO DAILY 12/31/17 [History] Ipratropium/Albuterol Neb [Duoneb] 3 ml IH Q4H PRN #60 inhsol 01/06/18 [Rx] Levofloxacin [Levaquin] 750 mg PO DAILY #5 tablet 01/06/18 [Rx] Saline Nasal [place] [[place] Nasal [place]] 2 spray NS Q2H PRN bottle 01/06/18 [Rx] predniSONE [PredniSONE] 10 mg PO DAILY #32 tablet 01/06/18 [Rx] 3 Allergy/AdvReac Type Severity Reaction Status Date / Time levofloxacin AdvReac Blurry Verified 01/03/18 22:27 Vision - Constitutional Constitutional ROS PAL: fatigue, no decreased appetite, no frequent falls - Cardiovascular Cardiovascular ROS: dyspnea on exertion, no chest pain, no edema, no leg edema, no palpitations, no pedal edema, no syncope - Respiratory Respiratory: cough, dyspnea (upon admission; improved now.), dyspnea on exertion , no excessive phlegm production, no change in phlegm color - Gastrointestinal Gastrointestinal: no abdominal pain, no change in bowel habits, no constipation , no nausea, no vomiting - Genitourinary Genitourinary ROS male: no difficulty urinating - Musculoskeletal Musculoskeletal ROS IM: no back pain, no muscle weakness - Integumentary ROS Integumentary: dry skin, no new lesions, no wounds - Neurological Neurological ROS: no confusion, no syncope - Psychiatric Psychiatric general PM: no anxiety Palliative Care-Exam - Constitutional Vitals: Temp Pulse Resp BP Pulse Ox 97.6 F 73 15 126/74 95 01/16/18 11:35 01/16/18 11:35 01/16/18 11:35 01/16/18 11:35 01/16/18 11:35 General appearance: Present: cooperative, no acute distress, obese - Head Head Exam: Present: atraumatic, normal inspection - Expanded Head Exam Head exam expanded IM: Absent: raccoon eyes - Eye Eye exam: Present: EOMI, normal appearance, PERRL, conjuntiva pink Pupils: Present: normal accommodation, PERRL - ENT ENT exam: Present: mucous membranes moist, normal external ear exam - Expanded ENT Exam Mouth Exam: Absent: drooling - Neck Neck exam: Present: full ROM, normal inspection. Absent: tenderness - Respiratory Respiratory exam: Present: accessory muscle use, rhonchi, wheezes. Absent: CTAB , tachypnea - Cardiovascular Cardiovascular exam: Present: +S1, +S2 - Expanded Cardiovascular Exam Peripheral pulses: 2+: Radial (L), Radial (R), Posterior Tibialis (L), Posterior Tibialis (R), Dorsalis Pedis (L) PM, Dorsalis Pedis (R) PM - GI/Abdominal Exam GI/Abdominal exam: Present: normal bowel sounds, soft. Absent: tenderness - Rectal Rectal Exam: Present: deferred - Extremities Exam Extremities exam: Present: normal inspection. Absent: calf tenderness, pedal edema - Neurological Exam Neurological exam: Present: alert, oriented X3, strengths equal and symetr throughout. Absent: altered - Expanded Neurological Exam Patient oriented to: Present: person, place, time Coma Scale Eye Opening: To Voice Coma Scale Motor Response: Obeys Commands Coma Scale Verbal Response: Oriented Coma Scale Total: 14 - Psychiatric Psychiatric exam: Present: normal affect, normal mood - Skin Skin exam: Present: dry, intact, warm Internal Medicine - CN: Reslt - Labs CBC & Chem 7: 01/16/18 05:14 01/16/18 05:14 Labs: Short CBC 01/16/18 Range/Units 05:14 WBC 9.6 (4.3-11.1) K/mcL Hgb 10.1 L (12.9-16.9) g/dL Hct 31.5 L (37.5-50.1) % Plt Count 348 (140-400) K/mcL BMP 01/16/18 05:14 Sodium 137 Potassium 4.4 Chloride 100 Carbon Dioxide 30 H BUN 15 Creatinine 0.59 L Glucose 169 H Calcium 9.7 Consult Discharge Plan - Plan Referrals: Basia Hendrickson MD [Partnered Physician] - 01/25/18 2:00 pm (Please arrive at 1:45pm to get paperwork filled out. Located at [facility] in [place].) Richard Skinner MD [Partnered Physician] - 01/31/18 10:15 am Palliative Quality Palliative Quality: Screen for Code Status: Yes, Screen for Goals of Care: Yes, Screen for Pain: Yes, If Pain Regimen Started, Initiate Bowel Regimen: NA, Screen for Nausea/Vomitting: Yes Code Status: 01/16/18 00:09 Resuscitation Status: Active [RES] Routine Comment: Resuscitation Status: Full Code
--- NOTE | 2018-01-16 16:52 | Internal Med Progress Note ---
Hospitalist Progress Note - Encounter Date of Encounter: 01/16/18 Time of Encounter: 08:50 - Subjective Interval History: Pt was seen and assessed at 0850. He appeared to be resistant to talking about his return and what happens at home to cause him to have difficulty breathing. He was resistant to discussing ECF and was receptive to learning more about palliative consultation. He denies chest pain, n/v/d, dizziness, vision changes , chest pain, abdominal pain, peripheral edema. - Exam Vitals: Temp Pulse Resp BP Pulse Ox 98.4 F 69 15 115/70 97 01/16/18 15:25 01/16/18 15:25 01/16/18 15:33 01/16/18 15:25 01/16/18 15:33 Exam: General: Pt resting quietly on bed, no distress. Skin: pwd, no rashes, lesions, redness Neurological: Pt is alert and awake, oriented x 3, Speech is clear, PERRLA, EOMI , no nystagmus, no pronator drift. strength equal x 4 extremities HEENT: mucous mumbranes moist, no conjuctival pallor Neck: supple, no tracheal deviation, no lymphadenopathy, tenderness, no thyromegaly Heart: S1S2 heard without gallops, clicks, murmurs, no bradycardia or tachycardia, pt has no peripheral edema, pedal and radial pulses palpable bilaterally. Lungs: wheezing and rhonchi throughout , respirations are unlabored Abdomen: soft and non tender with bowel sound present, no hepatomegaly. Psych: Normal affect with poor eye contact - Assessment and Plan (1) COPD exacerbation Current Visit: Yes Status: Acute Assessment and Plan: Acute exacerbation of COPD. This is patient's third admission this month for same. He has refused ECF, hospice, living with sister. overhead line worker spoke with patient regarding new primary care provider as well as nurse navigator, he was agreeable to nurse navigator. Continue bronchodilators, Zithromax 500 mg IV 3 days, prednisone 40 mg by mouth daily, O2 as needed, CPAP at night. Chest X-Ray 01/15/18 18:25 IMPRESSION: 1. A subtle opacity in the right lower lung seen only on frontal view may represent superimposition of shadows versus early pneumonia. 2. Imaging features compatible with emphysema. RECOMMENDATION: Consider a follow-up study to ensure resolution of the suspected opacity in the right lower lung. D/ / Stu Hunter / Stu Hunter Interpreting Provider: Stu Hunter (2) DVT prophylaxis Current Visit: Yes Status: Acute Assessment and Plan: Patient is on Xarelto (3) Dyspnea Current Visit: Yes Status: Acute Assessment and Plan: Secondary COPD. Plan as above. (4) Acute and chronic respiratory failure, unspecified whether with hypoxia or hypercapnia Current Visit: Yes Status: Acute Assessment and Plan: Secondary to COPD exacerbation. Patient is requiring supplemental oxygen above his normal baseline demand. Continue oxygen as needed and titrate to maintain sats greater than 92%. DVT Prophylaxis: As above. - Time Spent with Patient Total time spent is greater than 50% in coordination of care (as documented) at patient's floor/unit and/or counseling patient: less than 15 minutes Plan of Care Discussed with: patient Internal Medicine: Result - Labs CBC & Chem 7: 01/16/18 05:14 01/16/18 05:14 Labs: Short CBC 01/16/18 Range/Units 05:14 WBC 9.6 (4.3-11.1) K/mcL Hgb 10.1 L (12.9-16.9) g/dL Hct 31.5 L (37.5-50.1) % Plt Count 348 (140-400) K/mcL BMP 01/16/18 05:14 Sodium 137 Potassium 4.4 Chloride 100 Carbon Dioxide 30 H BUN 15 Creatinine 0.59 L Glucose 169 H Calcium 9.7 Consult Discharge Plan - Plan Referrals: Basia Hendrickson MD [Partnered Physician] - 01/25/18 2:00 pm (Please arrive at 1:45pm to get paperwork filled out. Located at [facility] in [place].) Richard Skinner MD [Partnered Physician] - 01/31/18 10:15 am (3) Dyspnea Qualifiers: Dyspnea type: shortness of breath Qualified Code(s): R06.02 - Shortness of breath; R06.00 - Dyspnea, unspecified; R06.01 - Orthopnea (4) Acute and chronic respiratory failure, unspecified whether with hypoxia or hypercapnia Qualifiers: Respiratory failure complication: unspecified whether with hypoxia or hypercapnia Qualified Code(s): J96.20 - Acute and chronic respiratory failure, unspecified whether with hypoxia or hypercapnia
[2018-01-16] MEDS ORDERED: *HR* Rivaroxaban 10 MG TABLET PO SCH (17:00)
[2018-01-17] MEDS: Azithromycin 500 MG in D5% in Water 250 ML IVPB SCH (01:40)
[2018-01-17] MEDS: Ipratropium/Albuterol Neb 3 ML IH SCH ×2 (04:04→12:49)
[2018-01-17 05:38] LABS: Basophils % 0.3 %; Eosinophils % 0.5 %; Hematocrit 32.7 % (37.5-50.1); Hemoglobin 10.4 g/dL (12.9-16.9); Immature Granulocytes % 0.3 % (0-4); Lymphocytes # 1.9 K/mcL (0.6-4.6); Lymphocytes % 25.2 %; Mean Corpuscular HGB Conc 31.8 g/dL (31.6-35.5); Mean Corpuscular Hemoglobin 27.4 pg (28.0-33.3); Mean Corpuscular Volume 86.3 fL (83.0-100.0); Mean Platelet Volume 10.4 fL (9.4-12.4); Monocytes # 0.6 K/mcL (0.0-1.3); Platelet Count 366 K/mcL (140-400); Red Blood Count 3.79 M/mcL (4.19-5.50); Red Cell Distribution Width 14.9 % (11.5-14.5); Segmented Neutrophils % 65.7 %
[2018-01-17 06:17] LABS: BUN/Creatinine Ratio 26 (6-26); Blood Urea Nitrogen 18 mg/dL (6-20); Calcium 9.5 mg/dL (8.6-10.3); Carbon Dioxide 32 mEq/L (23-29); Chloride 99 mEq/L (98-107); Glucose 95 mg/dL (70-105); Osmolality,Calculated 292 (280-300); Potassium 4.3 mEq/L (3.5-5.1); Sodium 140 mEq/L (136-145); eGFR For Non-African Americans > 60 (> 60)
[2018-01-17] MEDS: Furosemide 40 MG TABLET PO SCH ×2 (07:51→13:02)
[2018-01-17] MEDS: Gabapentin 300 MG CAPSULE PO SCH ×2 (07:51→14:21)
[2018-01-17] MEDS: predniSONE 20 MG TABLET PO SCH (07:51)
--- NOTE | 2018-01-17 08:31 | Electrocardiograph Report ---
[place] [id number] Test Date: 2018-01-15 Pat Name: Jason Blanchard Department: [id number] Room: 3B Gender: M Open Cut Examiner: : 1960 Requested By: Anca Wilkinson Order Number: [id number] Reading MD: Carly Terrell Measurements Intervals [place] Rate: 88 P: 51 [place]: 150 QRS: 18 QRSD: 96 T: 49 QT: 387 QTc: 469 Interpretive Statements Sinus rhythm with premature supraventricular and ventricular complexes Abnormal R-wave progression, early transition Electronically Signed On 01-17-2018 8:30:07 EDT by Carly Terrell
--- NOTE | 2018-01-17 09:40 | Palliative Progress Note ---
Date of Encounter: 01/17/18 Time of Encounter: 08:45 - Assessment and plan (1) Weakness Current Visit: Yes Status: Acute Assessment and plan: Patient reports continued weakness. Patient refused PT yesterday. (2) Acute exacerbation of chronic obstructive airways disease Current Visit: No Status: Acute Assessment and plan: Patient reports continued dyspnea, reports at baseline from prior to admission. Admits wears BiPAP more often than not at home. Oxygen saturation 94% with BiPAP. Continue oxygen therapy, duonebs, and steroids. (3) Dyspnea Current Visit: Yes Status: Acute Qualifiers: Dyspnea type: shortness of breath Qualified Code(s): R06.02 - Shortness of breath; R06.00 - Dyspnea, unspecified; R06.01 - Orthopnea (4) Goals of care, counseling/discussion Current Visit: No Status: Acute Assessment and plan: Met with patient to further discuss goals of care. Patient reports he has not been educated "a whole lot" on COPD and what is included in diagnosis. Discussed COPD, staging, signs of worsening symptoms, when to call PCP, and ways to prevent exacerbations. Patient verbalized understanding. Discussed what is meant when "End Stage COPD" is mentioned. Discussed roles of palliative care and hospice in end stage COPD; verbalized understanding. When asked what he will do when he gets short of breath at home, he reported he will handle it prior to education, after education when asked the same question he reported with worsening symptoms he will call PCP. Acknowledged he may be interested in hospice care in the future, but not currently. Discussed potential that PCP can refer to hospice also; verbalized understanding. Re-evaluated patient's CODE STATUS; patient desires to remain a FULL CODE. Discussed if he would later be intubated his sister would be making his medical decisions and he needs to ensure that she knows his wishes; verbalized understanding. Discussed possibility of trach and PEG if alf inbutation and location of LTACs versus home in [place]. Concern acknowledged for driving time from [place] to LTAC for ventilator management for his sister. Patient reported he had a lot to think about. Desires to continue aggressive treatment with FULL CODE at this time. Reports will give thought about having hospice come in once he returns home, but declines at this time. Informed patient with worsening condition and repeat admissions palliative care would likely be re-consulted in the future to continue to discuss goals of care; verbalized understanding and admits that will give him time to think everything through. Education material given to patient regarding Day to day with COPD, End Stage COPD, and managing COPD. Patient denies further needs at present time. Palliative care will sign off at this time. Please consult if needed. - Time Spent With Patient Total time spent is greater than 50% in coordination of care (as documented) at patient's floor/unit and/or counseling patient: Greater than 35 minutes (Discussing disease prognosis, Code status, goals of care, and discharge planning.) - Subjective Interval history: Patient resting in bed with eyes closed upon arrival for assessment. BiPAP in place, reports getting ready for a nap. Patient is alert and oriented times 3. Denies pain, anxiety, nausea, vomiting, and diarrhea. Reports worsening short of breath, even with BiPAP in place. Inquired whether he feels is breathing is at his baseline prior to admission, agreed that it is. - Constitutional Vitals: Abnormal lab results RBC 3.79 M/mcL (4.19-5.50) L 01/17/18 04:55 Hgb 10.4 g/dL (12.9-16.9) L 01/17/18 04:55 Hct 32.7 % (37.5-50.1) L 01/17/18 04:55 MCH 27.4 pg (28.0-33.3) L 01/17/18 04:55 RDW 14.9 % (11.5-14.5) H 01/17/18 04:55 Carbon Dioxide 32 mEq/L (23-29) H 01/17/18 04:55 Creatinine 0.68 mg/dL (0.70-1.30) L 01/17/18 04:55 General appearance: Present: cooperative, no acute distress, obese - Head Head exam: Present: atraumatic, normal inspection - Eye Eye exam: Present: EOMI, normal appearance, PERRL. Absent: periorbital swelling , periorbital tenderness Pupils: Present: normal accommodation, PERRL - ENT ENT exam: Present: mucous membranes moist, normal external ear exam - Neck Neck exam: Present: full ROM, normal inspection - Respiratory Respiratory exam: Present: accessory muscle use, rhonchi. Absent: respiratory distress - Cardiovascular Cardiovascular exam: Present: +S1, +S2 - GI/Abdominal GI/Abdominal exam: Present: diminished bowel sounds, distended, soft. Absent: firm, tenderness - Rectal Rectal exam: Present: deferred - Extremities Exam Extremities exam: Present: full ROM, normal capillary refill, normal inspection. Absent: pedal edema - Neurological Exam Neurological exam: Present: alert, oriented X3, strengths equal and symetr throughout. Absent: altered - Psychiatric Psychiatric exam: Present: flat affect. Absent: agitated, anxious, depressed - Skin Skin exam: Present: dry, intact, warm Palliative Quality Palliative Quality: Screen for Code Status: Yes, Screen for Goals of Care: Yes, Screen for Pain: Yes, If Pain Regimen Started, Initiate Bowel Regimen: NA, Screen for Nausea/Vomitting: Yes Code Status: 01/16/18 00:09 Resuscitation Status: Active [RES] Routine Comment: Resuscitation Status: Full Code - Labs CBC & Chem 7: 01/17/18 04:55 01/17/18 04:55 Labs: Laboratory Results - last 24 hr 01/17/18 01/17/18 04:55 04:55 WBC 7.6 RBC 3.79 L Hgb 10.4 L Hct 32.7 L MCV 86.3 MCH 27.4 L MCHC 31.8 RDW 14.9 H Plt Count 366 MPV 10.4 Immature Gran % 0.3 Seg Neutrophils % 65.7 Lymphocytes % 25.2 Monocytes % 8.0 Eosinophils % 0.5 Basophils % 0.3 Neutrophils # 5.0 Lymphocytes # 1.9 Monocytes # 0.6 Eosinophils # 0.0 Basophils # 0.0 Sodium 140 Potassium 4.3 Chloride 99 Carbon Dioxide 32 H BUN 18 Creatinine 0.68 L Est GFR ( Amer) > 60 Est GFR (Non-Af Amer) > 60 BUN/Creatinine Ratio 26 Glucose 95 Calculated Osmolality 292 Calcium 9.5 Consult Discharge Plan - Plan Referrals: Basia Hendrickson MD [Partnered Physician] - 01/25/18 2:00 pm (Please arrive at 1:45pm to get paperwork filled out. Located at [facility] in [place].) Richard Skinner MD [Partnered Physician] - 01/31/18 10:15 am
[2018-01-17 10:28] VITALS: BP 113/71
--- NOTE | 2018-01-17 12:03 | Discharge Summary ---
- NOTES TO OUTPATIENT PROVIDER Notes to Outpatient Provider: Pt will need extensive continued education on COPD , when to call PCP, when to go to ED. Pt should have frequent contact with nurse navigator. Date of Encounter: 01/17/18 Time of Encounter: 10:50 - Discharge Diagnosis (1) COPD exacerbation Priority: Primary Status: Acute Assessment and Plan: Acute exacerbation of COPD. This is patient's third admission this month for same. He has refused ECF, hospice, living with sister. floor service worker spring spoke with patient regarding new primary care provider as well as nurse navigator, he was agreeable to nurse navigator. Continue bronchodilators, Zithromax 500 mg IV 3 days, prednisone 40 mg by mouth daily, O2 as needed, CPAP at night. Palliative consultation yesterday for End-stage COPD, pt accepted education but is not ready for hospice care at this time. Chest X-Ray 01/15/18 18:25 IMPRESSION: 1. A subtle opacity in the right lower lung seen only on frontal view may represent superimposition of shadows versus early pneumonia. 2. Imaging features compatible with emphysema. RECOMMENDATION: Consider a follow-up study to ensure resolution of the suspected opacity in the right lower lung. D/ / Stu Hunter / Stu Hunter Interpreting Provider: Stu Hunter (2) DVT prophylaxis Priority: Secondary Status: Acute Assessment and Plan: Patient is on Xarelto (3) Dyspnea Priority: Secondary Status: Chronic Assessment and Plan: Acute on chronic. Secondary COPD. Plan as above. Comments: Chronic. Qualifiers: Dyspnea type: shortness of breath Qualified Code(s): R06.02 - Shortness of breath; R06.00 - Dyspnea, unspecified; R06.01 - Orthopnea (4) Acute and chronic respiratory failure, unspecified whether with hypoxia or hypercapnia Priority: Secondary Status: Acute Assessment and Plan: Secondary to COPD exacerbation. Pt has returned to baseline 02 demand. Continue oxygen at home. Qualifiers: Respiratory failure complication: unspecified whether with hypoxia or hypercapnia Qualified Code(s): J96.20 - Acute and chronic respiratory failure , unspecified whether with hypoxia or hypercapnia Hospital course: Please see assessment and plan for hospital course. Discharge discussed with: patient - Time Spent with Patient Total time spent providing and/or coordinating discharge services: Less than 30 minutes - Discharge Medications Prescriptions: Albuterol Sulfate [Albuterol Inhaler] 2 puff IH Q4H PRN #1 inhaler PRN Reason: Shortness Of Breath Home Medications: Docusate [Colace] 100 mg PO BID 07/25/17 [History] Oxygen 4 l NS AD 07/25/17 [History] Roflumilast [Daliresp] 500 mcg PO DAILY 07/25/17 [History] Metoprolol [Lopressor] 25 mg PO BID 09/10/17 [History] Acetaminophen [Tylenol] 650 mg PO Q6HR PRN tablet 09/20/17 [Rx] Furosemide [Lasix] 40 mg PO TID #90 tab 09/20/17 [Rx] Mometasone/Formoterol [Dulera 200 Mcg/5 Mcg Inhaler] 2 puff IH BID #1 hfa.aer.ad 09/20/17 [Rx] Rivaroxaban [Xarelto] 20 mg PO DAILY #60 tablet 09/20/17 [Rx] Omeprazole [PriLOSEC] 20 mg PO 0730 09/30/17 [History] Loratadine [Claritin] 10 mg PO DAILY #30 tablet 11/09/17 [Rx] Gabapentin [Neurontin] 300 mg PO TID 12/31/17 [History] Tiotropium [place] [Spiriva Respimat] 2 puff IH DAILY 12/31/17 [History] Triamterene/HCTZ 37.5/25mg [Dyazide] 1 tab PO DAILY 12/31/17 [History] Ipratropium/Albuterol Neb [Duoneb] 3 ml IH Q4H PRN #60 inhsol 01/06/18 [Rx] Levofloxacin [Levaquin] 750 mg PO DAILY #5 tablet 01/06/18 [Rx] Saline Nasal [place] [[place] Nasal [place]] 2 spray NS Q2H PRN bottle 01/06/18 [Rx] predniSONE [PredniSONE] 10 mg PO DAILY #32 tablet 01/06/18 [Rx] Albuterol Sulfate [Albuterol Inhaler] 2 puff IH Q4H PRN #1 inhaler 01/17/18 [Rx] Allergies/Adverse Reactions: 3 Allergy/AdvReac Type Severity Reaction Status Date / Time levofloxacin AdvReac Blurry Verified 01/03/18 22:27 [place] Date of admission: 01/15/18 20:04 Primary care physician: Marilyn Rojas CNP Consults: 01/16/18 00:10 Consult to Nurse Navigator [CONS] Routine Comment: 01/16/18 10:57 Consult to Palliative Care [CONS] Routine Comment: Consulting Provider: Palliative Care [place] Reason for Consult: End-stage COPD with frequent exacerbations, frequent admissions. Recommendations for keeping pt comfortable at home, please. Call Completed: Yes 01/16/18 13:28 Consult to Physical Therapy [CONS] Routine Comment: Evaluate, develop and implement POC Reason for Consult: weakness. Does patient have active BEDREST order?: No Is patient medically & hemodynamically stable?: Yes Patient assessed for mobility or mobilized this visit?: No Discharging clinician: Radha Thibodeaux Anticipated date of discharge: 01/17/18 - Constitutional Vitals: Temp Pulse Resp BP Pulse Ox 97.8 F 70 16 113/71 94 01/17/18 10:27 01/17/18 10:27 01/17/18 10:27 01/17/18 10:27 01/17/18 10:27 General appearance: Present: cooperative, A&O X 3, pleasant, no acute distress, answers questions appropriately Exam: as above. - Head Head exam: Present: atraumatic, normal inspection, normocephalic - Eye Eye exam: Present: normal appearance, PERRL, conjuntiva pink, sclera anicteric - Neck Neck exam general surgery: Present: supple, trachea midline. Absent: lymphadenopathy, tenderness - Respiratory Respiratory exam: Present: decreased breath sounds, CTAB, wheezes. Absent: accessory muscle use, chest wall tenderness, rales, respiratory distress, rhonchi - Cardiovascular Cardiovascular exam: Present: RRR, +S1, +S2. Absent: diastolic murmur, gallop, rubs, systolic murmur - GI/Abdominal GI/Abdominal exam: Present: normal bowel sounds, soft, no peritoneal signs. Absent: distended, hepatomegaly, tenderness - Extremities Exam Extremities exam: Present: normal capillary refill, normal inspection, warm, radial pulses palpable and symmetrical. Absent: calf tenderness, cyanotic, pedal edema - Neurological Exam Neurological exam: Present: alert, oriented X3, no focal deficits. Absent: facial droop, speech deficit - Skin Skin exam: Present: dry, intact, normal color, warm. Absent: rash - Patient Status Disposition: Home, Self-Care Condition: Good Functional capacity at discharge: uses cane/walker Overall status at discharge: patient is progressing back to baseline - Discharge Instructions Follow Up With: Basia Hendrickson MD [Partnered Physician] - 01/25/18 2:00 pm (Please arrive at 1:45pm to get paperwork filled out. Located at [facility] in [place].) Richard Skinner MD [Partnered Physician] - 01/31/18 10:15 am Additional Instructions: Take your medications as directed. Follow up with your PCP and pulmonology as scheduled. Return to the ER as needed for any other problems or concerns. Call your PCP for assistance as needed. Return to your normal diet and activities as tolerated. - Diet and Activity Activity: increase activity as tolerated, resume usual activities as tolerated Diet: advance to your usual diet
--- NOTE | 2018-01-17 18:24 | Physician Discharge Referral ---
Home Health/Hosp Referral Info Transfer to: Home Health Provider in Charge Post Discharge: PCP - Diagnosis (1) COPD exacerbation Priority: Primary Status: Acute (2) DVT prophylaxis Priority: Secondary Status: Acute (3) Dyspnea Priority: Secondary Status: Chronic (4) Acute and chronic respiratory failure, unspecified whether with hypoxia or hypercapnia Priority: Secondary Status: Acute - Respiratory Orders Smoking Cessation: Smoking cessation has been advised. For more information, call the [place] Tobacco Quit Line at 3-380-PURN-NOW. - Diet/Nutrition Diet/Nutrition Orders: Regular - Activity Activity Orders: Up ad harish - Services Needed Following services are medically necessary services: Nursing, Home Health Aide, Physical Therapy, Occupational Therapy - Transfer Medications Prescriptions: Albuterol Sulfate [Albuterol Inhaler] 2 puff IH Q4H PRN #1 inhaler PRN Reason: Shortness Of Breath Home Medications: Docusate [Colace] 100 mg PO BID 07/25/17 [History] Oxygen 4 l NS AD 07/25/17 [History] Roflumilast [Daliresp] 500 mcg PO DAILY 07/25/17 [History] Metoprolol [Lopressor] 25 mg PO BID 09/10/17 [History] Acetaminophen [Tylenol] 650 mg PO Q6HR PRN tablet 09/20/17 [Rx] Furosemide [Lasix] 40 mg PO TID #90 tab 09/20/17 [Rx] Mometasone/Formoterol [Dulera 200 Mcg/5 Mcg Inhaler] 2 puff IH BID #1 hfa.aer.ad 09/20/17 [Rx] Rivaroxaban [Xarelto] 20 mg PO DAILY #60 tablet 09/20/17 [Rx] Omeprazole [PriLOSEC] 20 mg PO 0730 09/30/17 [History] Loratadine [Claritin] 10 mg PO DAILY #30 tablet 11/09/17 [Rx] Gabapentin [Neurontin] 300 mg PO TID 12/31/17 [History] Tiotropium [place] [Spiriva Respimat] 2 puff IH DAILY 12/31/17 [History] Triamterene/HCTZ 37.5/25mg [Dyazide] 1 tab PO DAILY 12/31/17 [History] Ipratropium/Albuterol Neb [Duoneb] 3 ml IH Q4H PRN #60 inhsol 01/06/18 [Rx] Levofloxacin [Levaquin] 750 mg PO DAILY #5 tablet 01/06/18 [Rx] Saline Nasal [place] [[place] Nasal [place]] 2 spray NS Q2H PRN bottle 01/06/18 [Rx] predniSONE [PredniSONE] 10 mg PO DAILY #32 tablet 01/06/18 [Rx] Albuterol Sulfate [Albuterol Inhaler] 2 puff IH Q4H PRN #1 inhaler 01/17/18 [Rx] Allergies/Adverse Reactions: 3 Allergy/AdvReac Type Severity Reaction Status Date / Time levofloxacin AdvReac Blurry Verified 01/03/18 22:27 [place] Certification: Further, I certify that my clinical findings support that this patient is homebound (i.e. absences from home require considerable and taxing effort and are for medical reasons or rastafari services or infrequently or short duration when for other reasons) because: Homebound Reason: Patient requires assistance of a person or device to safely leave home, Severity of cardiac or pulmonary status limits activity tolerance Attestation: My signature below is to certify that this patient is under my care and that I, or nurse practitioner, or a physician's esl instructional assistant working with me, has a face-to -face encounter with this patient.
== END 2018-01-17 14:46 | disposition home or self-care (01) ==
LOC: 3BNU 17:45 → EMEROOARM 17:45 → 3BNU 20:35
PROVIDERS: ADMIT Pediatrics; ATTEND Pediatrics

== ENCOUNTER 2018-02-16 11:27 | Observation (INO) ==
[2018-02-16] MEDS ORDERED: Ipratropium/Albuterol Neb 3 ML IH ONE (11:36)
[2018-02-16] MEDS ORDERED: Piperacillin/Tazobactam 3.375 GM in 0.9 % Sodium Chloride Mini Bag 100 ML IVPB ONE (11:37)
[2018-02-16] MEDS ORDERED: Azithromycin 500 MG in D5% in Water 250 ML IVPB ONE (11:37)
--- NOTE | 2018-02-16 11:42 | Emergency Department Note ---
Disposition Clinical Impression: COPD exacerbation, Pneumonia Disposition: Admitted As Inpatient Condition: Fair General Adult HPI - General Chief complaint: ED Shortness of Breath/Dyspnea Stated complaint: PHYLLIS Time Seen by Provider: 02/16/18 11:33 Nursing Notes Reviewed: Yes Vital Signs Reviewed: Yes - History of Present Illness Pain Scale: 0 - Related Data Home Medications Medication Instructions Recorded Confirmed Docusate [Colace] 100 mg PO BID 07/25/17 02/16/18 Oxygen 4 l NS AD 07/25/17 02/16/18 Roflumilast [Daliresp] 500 mcg PO DAILY 07/25/17 02/16/18 Metoprolol [Lopressor] 25 mg PO BID 09/10/17 01/15/18 Omeprazole [PriLOSEC] 20 mg PO 0730 09/30/17 02/16/18 Gabapentin [Neurontin] 300 mg PO TID 12/31/17 02/16/18 Triamterene/HCTZ 37.5/25mg 1 tab PO DAILY 12/31/17 02/16/18 [Dyazide] Previous Rx's Medication Instructions Recorded Furosemide [Lasix] 40 mg PO TID #90 tab 09/20/17 Mometasone/Formoterol [Dulera 200 2 puff IH BID #1 hfa.aer.ad 09/20/17 Mcg/5 Mcg Inhaler] Rivaroxaban [Xarelto] 20 mg PO DAILY #60 tablet 09/20/17 Loratadine [Claritin] 10 mg PO DAILY #30 tablet 11/09/17 Ipratropium/Albuterol Neb [Duoneb] 3 ml IH Q4H PRN #60 inhsol 01/06/18 Albuterol Sulfate [Albuterol 2 puff IH Q4H PRN #1 inhaler 01/17/18 Inhaler] Allergies Allergy/AdvReac Type Severity Reaction Status Date / Time levofloxacin AdvReac Blurry Verified 02/16/18 15:06 Vision Past Medical History - Past Medical History Medical history: Reports: asthma, CHF, COPD, hyperlipidemia, hypertension, pulmonary embolus Surgical history: Reports: no surgical history Psychiatric history: Reports: anxiety, depression - Social History Smoking Status: Former smoker Smokeless Tobacco Status: No Alcohol use: Reports: rarely Drug use: Reports: none Course Vital Signs Temperature 97.8 F 02/16/18 11:32 Pulse Rate 106 09/28/18 11:32 Respiratory Rate 22 02/16/18 11:32 Blood Pressure 127/78 02/16/18 11:32 O2 Sat by Pulse Oximetry 93 02/16/18 11:32 Temperature 97.8 F 02/16/18 11:40 Pulse Rate 98 02/16/18 13:26 Respiratory Rate 20 02/16/18 14:39 Blood Pressure 125/79 02/16/18 14:39 O2 Sat by Pulse Oximetry 96 02/16/18 13:26 Oxygen Delivery Oxygen Delivery Nasal Cannula Medical Decision Making - MDM Narrative Medical decision making narrative: Chest X-Ray 02/16/18 11:36 IMPRESSION: 1. Cardiomegaly with mild vascular congestion. D/ / Haim Pyle MD / Haim Pyle MD Interpreting Provider: Haim Pyle MD 1300 hrs.: Patient's chest x-ray shows no pneumonia. His system vascular congestion. We will bring him in the hospital acute exacerbation of COPD rule out CHF. Patient's in agreement with plan - Lab Data Result diagrams: 02/16/18 11:57 02/16/18 11:57 Lab Results 02/16/18 02/16/18 02/16/18 Range/Units 11:57 11:57 11:57 WBC 7.1 (4.3-11.1) K/mcL RBC 4.36 (4.19-5.50) M/mcL Hgb 11.9 L (12.9-16.9) g/dL Hct 37.3 L (37.5-50.1) % MCV 85.6 (83.0-100.0) fL MCH 27.3 L (28.0-33.3) pg MCHC 31.9 (31.6-35.5) g/dL RDW 14.4 (11.5-14.5) % Plt Count 366 (140-400) K/mcL MPV 9.6 (9.4-12.4) fL Immature Gran % 0.3 (0-4) % Seg Neutrophils % 90.4 % Lymphocytes % 7.1 % Monocytes % 1.1 % Eosinophils % 0.7 % Basophils % 0.4 % Neutrophils # 6.4 (1.6-8.9) K/mcL Lymphocytes # 0.5 L (0.6-4.6) K/mcL Monocytes # 0.1 (0.0-1.3) K/mcL Eosinophils # 0.1 (0.0-0.6) K/mcL Basophils # 0.0 (0.0-0.2) K/mcL Sodium 136 (136-145) mEq/L Potassium 4.0 (3.5-5.1) mEq/L Chloride 96 L (98-107) mEq/L Carbon Dioxide 29 (23-29) mEq/L BUN 11 (6-20) mg/dL Creatinine 0.58 L (0.70-1.30) mg/dL Est GFR ( Amer) > 60 (> 60) Est GFR (Non-Af Amer) > 60 (> 60) BUN/Creatinine Ratio 19 (6-26) Glucose 99 (70-105) mg/dL Calculated Osmolality 281 (280-300) Lactic Acid 1.1 (0.5-2.2) mmol/L Calcium 9.9 (8.6-10.3) mg/dL Troponin I < 0.03 (< 0.04) ng/mL B-Natriuretic Peptide (Less than 100) pg/mL 02/16/18 Range/Units 11:57 WBC (4.3-11.1) K/mcL RBC (4.19-5.50) M/mcL Hgb (12.9-16.9) g/dL Hct (37.5-50.1) % MCV (83.0-100.0) fL MCH (28.0-33.3) pg MCHC (31.6-35.5) g/dL RDW (11.5-14.5) % Plt Count (140-400) K/mcL MPV (9.4-12.4) fL Immature Gran % (0-4) % Seg Neutrophils % % Lymphocytes % % Monocytes % % Eosinophils % % Basophils % % Neutrophils # (1.6-8.9) K/mcL Lymphocytes # (0.6-4.6) K/mcL Monocytes # (0.0-1.3) K/mcL Eosinophils # (0.0-0.6) K/mcL Basophils # (0.0-0.2) K/mcL Sodium (136-145) mEq/L Potassium (3.5-5.1) mEq/L Chloride (98-107) mEq/L Carbon Dioxide (23-29) mEq/L BUN (6-20) mg/dL Creatinine (0.70-1.30) mg/dL Est GFR ( Amer) (> 60) Est GFR (Non-Af Amer) (> 60) BUN/Creatinine Ratio (6-26) Glucose (70-105) mg/dL Calculated Osmolality (280-300) Lactic Acid (0.5-2.2) mmol/L Calcium (8.6-10.3) mg/dL Troponin I (< 0.04) ng/mL B-Natriuretic Peptide 22 (Less than 100) pg/mL Critical Care Time Critical Care Time: Yes Total Critical Care Time: 31 Attestation: Excluding any separately billable procedures. Attestation Statement - Attestation Attestation: This documentation is done with the assistance of Dragon dictation. Despite efforts made to ensure accuracy, there may be inaccuracies in systems development consultant or spelling and typographical errors. I examined this patient and my medical decision-making was reviewed with the Resident Physician. I agree with the documented findings, disposition and treatment plan as described except to the extent set forth below. Patient seen and evaluated by Dr. Wilkinson and myself, William's evaluation management plan, supervise care the stay. Patient's is well-known to our ER with history of COPD with exacerbation today. He was admitted into the hospital last month so we will treat him as healthcare acquired. Chest x-ray lab work on antibiotics and then most likely admission.
[2018-02-16] MEDS ORDERED: 0.9 % Sodium Chloride 1,000 ML IVC ONE (11:43)
--- NOTE | 2018-02-16 11:43 | Emergency Department Note ---
Disposition Clinical Impression: COPD exacerbation Pneumonia Qualifiers: Pneumonia type: due to unspecified organism Laterality: unspecified laterality Lung location: unspecified part of lung Qualified Code(s): J18.9 - Pneumonia, unspecified organism Disposition: Admitted As Inpatient Condition: Fair Referrals: Marilyn Rojas CNP [Primary Care Provider] - Forms: ED Satisfaction Letter Time of Disposition: 13:36 SOB HPI - General Chief Complaint: ED Shortness of Breath/Dyspnea Stated Complaint: PHYLLIS Time Seen by Provider: 02/16/18 11:33 Source: patient Mode of arrival: ambulatory Limitations: no limitations Nursing Notes Reviewed: Yes Vital Signs Reviewed: Yes - History of Present Illness Patient presenting to the ED with a 2 day history of subjective fever and chills , productive cough and worsening shortness of breath. 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 States he has been having gradually increasing shortness of breath and exertional dyspnea over the last 2 days. He has had pneumonia and sepsis in the past and states he feels similar. mildly productive cough. Is having his normal COPD, chest tightness but denies any other chest pain. Denies any abdominal pain but has been nauseated. No vomiting or diarrhea. No rash. Denies any history of congestive heart failure, although his chart does indicate that he has had congestive heart failure in the past. - Related Data Home Medications Medication Instructions Recorded Confirmed Docusate [Colace] 100 mg PO BID 07/25/17 01/15/18 Oxygen 4 l NS AD 07/25/17 01/15/18 Roflumilast [Daliresp] 500 mcg PO DAILY 07/25/17 01/15/18 Metoprolol [Lopressor] 25 mg PO BID 09/10/17 01/15/18 Omeprazole [PriLOSEC] 20 mg PO 0730 09/30/17 01/15/18 Gabapentin [Neurontin] 300 mg PO TID 12/31/17 01/15/18 Tiotropium [place] [Spiriva 2 puff IH DAILY 12/31/17 01/15/18 Respimat] Triamterene/HCTZ 37.5/25mg 1 tab PO DAILY 12/31/17 01/15/18 [Dyazide] Previous Rx's Medication Instructions Recorded Acetaminophen [Tylenol] 650 mg PO Q6HR PRN tablet 09/20/17 Furosemide [Lasix] 40 mg PO TID #90 tab 09/20/17 Mometasone/Formoterol [Dulera 200 2 puff IH BID #1 hfa.aer.ad 09/20/17 Mcg/5 Mcg Inhaler] Rivaroxaban [Xarelto] 20 mg PO DAILY #60 tablet 09/20/17 Loratadine [Claritin] 10 mg PO DAILY #30 tablet 11/09/17 Ipratropium/Albuterol Neb [Duoneb] 3 ml IH Q4H PRN #60 inhsol 01/06/18 Levofloxacin [Levaquin] 750 mg PO DAILY #5 tablet 01/06/18 Saline Nasal [place] [Swift Nasal 2 spray NS Q2H PRN bottle 01/06/18 [place]] predniSONE [PredniSONE] 10 mg PO DAILY #32 tablet 01/06/18 Albuterol Sulfate [Albuterol 2 puff IH Q4H PRN #1 inhaler 01/17/18 Inhaler] Allergies Allergy/AdvReac Type Severity Reaction Status Date / Time levofloxacin AdvReac Blurry Verified 01/03/18 22:27 Vision Review of Systems: As reviewed in the HPI. All other systems reviewed are negative or normal. Past Medical History - Past Medical History Attestation: Yes The following information was validated with the patient. Source: patient Medical history: Reports: asthma, CHF, COPD, hyperlipidemia, hypertension, pulmonary embolus Surgical history: Reports: no surgical history Psychiatric history: Reports: anxiety, depression - Social History Smoking Status: Former smoker Smokeless Tobacco Status: No Alcohol use: Reports: rarely Drug use: Reports: none Physical Exam CONSTITUTIONAL: [Chronically ill appearing, alert and in no acute distress] EYES: [EOMI, clear conjunctiva, PERRLA] HENT: [Normocephalic, atraumatic, moist mucus membranes, normal oropharynx] NECK: [normal inspection, full ROM, trachea midline, no obvious swelling] PULMONARY: [Mild respiratory distress, course breath sounds throughout, decreased breath sounds bilateral bases, no obvious wheezing CARDIOVASCULAR: [Tachycardia, regular rhythm, normal heart sounds, no murmurs, distal extremities are warm and well perfused] GASTROINSTESTINAL: [soft, non-tender, non-rigid, non-distended, no guarding, no rebound, normal bowel sounds] GENITOURINARY/RECTAL: [deferred] NEUROLOGIC: [Alert, oriented x3, normal speech, but is conversationally dyspneic , moves all extremities] EXTREMITIES: [Normal inspection, full ROM, no tenderness, no pedal edema, normal capillary refill] MUSCULOSKELETAL: [no gross deformities, atraumatic] SKIN: [No cyanosis, no diaphoresis, normal color, warm, no rash] PSYCHIATRIC: [normal mood and affect] Course Course Narrative: Patient presenting with COPD exacerbation and suspected pneumonia. Meets sepsis criteria. Started on antibiotics, cultures drawn. Patient's allergic to Levaquin and has been in the hospital within the last 60 days. We will treat with Zosyn, azithromycin, vancomycin. Will give him 3 duo nebs. Chest x- ray and labs. We will reevaluate. Patient is on Xarelto for previous history of pulmonary embolism. - Reevaluation(s) Reevaluation #1: Patient's sats are better after breathing treatments. Chest x-ray does not show pneumonia, but clinically the like. Patient has pneumonia. Patient was given antibiotics. States he still was not feeling much better. Lung sounds are improved, but still tight. Patient did not fill comfortable going home. Paged hospitalist for admission and was accepted. Vital Signs Temperature 97.8 F 02/16/18 11:32 Pulse Rate 106 02/16/18 11:32 Respiratory Rate 22 02/16/18 11:32 Blood Pressure 127/78 02/16/18 11:32 O2 Sat by Pulse Oximetry 93 02/16/18 11:32 Temperature 97.8 F 02/16/18 11:40 Pulse Rate 98 02/16/18 13:26 Respiratory Rate 20 02/16/18 13:26 Blood Pressure 119/72 02/16/18 13:26 O2 Sat by Pulse Oximetry 96 02/16/18 13:26 Oxygen Delivery Oxygen Delivery Room Air Shortness of Breath/Dyspnea - Medical Records Medical records reviewed: Yes I reviewed the patient's medical records. - Lab Data Lab results reviewed: Yes I reviewed the patient's lab results. Result diagrams: 02/16/18 11:57 02/16/18 11:57 Lab Results 02/16/18 02/16/18 02/16/18 Range/Units 11:57 11:57 11:57 WBC 7.1 (4.3-11.1) K/mcL RBC 4.36 (4.19-5.50) M/mcL Hgb 11.9 L (12.9-16.9) g/dL Hct 37.3 L (37.5-50.1) % MCV 85.6 (83.0-100.0) fL MCH 27.3 L (28.0-33.3) pg MCHC 31.9 (31.6-35.5) g/dL RDW 14.4 (11.5-14.5) % Plt Count 366 (140-400) K/mcL MPV 9.6 (9.4-12.4) fL Immature Gran % 0.3 (0-4) % Seg Neutrophils % 90.4 % Lymphocytes % 7.1 % Monocytes % 1.1 % Eosinophils % 0.7 % Basophils % 0.4 % Neutrophils # 6.4 (1.6-8.9) K/mcL Lymphocytes # 0.5 L (0.6-4.6) K/mcL Monocytes # 0.1 (0.0-1.3) K/mcL Eosinophils # 0.1 (0.0-0.6) K/mcL Basophils # 0.0 (0.0-0.2) K/mcL Sodium 136 (136-145) mEq/L Potassium 4.0 (3.5-5.1) mEq/L Chloride 96 L (98-107) mEq/L Carbon Dioxide 29 (23-29) mEq/L BUN 11 (6-20) mg/dL Creatinine 0.58 L (0.70-1.30) mg/dL Est GFR ( Amer) > 60 (> 60) Est GFR (Non-Af Amer) > 60 (> 60) BUN/Creatinine Ratio 19 (6-26) Glucose 99 (70-105) mg/dL Calculated Osmolality 281 (280-300) Lactic Acid 1.1 (0.5-2.2) mmol/L Calcium 9.9 (8.6-10.3) mg/dL Troponin I < 0.03 (< 0.04) ng/mL B-Natriuretic Peptide (Less than 100) pg/mL 02/16/18 Range/Units 11:57 WBC (4.3-11.1) K/mcL RBC (4.19-5.50) M/mcL Hgb (12.9-16.9) g/dL Hct (37.5-50.1) % MCV (83.0-100.0) fL MCH (28.0-33.3) pg MCHC (31.6-35.5) g/dL RDW (11.5-14.5) % Plt Count (140-400) K/mcL MPV (9.4-12.4) fL Immature Gran % (0-4) % Seg Neutrophils % % Lymphocytes % % Monocytes % % Eosinophils % % Basophils % % Neutrophils # (1.6-8.9) K/mcL Lymphocytes # (0.6-4.6) K/mcL Monocytes # (0.0-1.3) K/mcL Eosinophils # (0.0-0.6) K/mcL Basophils # (0.0-0.2) K/mcL Sodium (136-145) mEq/L Potassium (3.5-5.1) mEq/L Chloride (98-107) mEq/L Carbon Dioxide (23-29) mEq/L BUN (6-20) mg/dL Creatinine (0.70-1.30) mg/dL Est GFR ( Amer) (> 60) Est GFR (Non-Af Amer) (> 60) BUN/Creatinine Ratio (6-26) Glucose (70-105) mg/dL Calculated Osmolality (280-300) Lactic Acid (0.5-2.2) mmol/L Calcium (8.6-10.3) mg/dL Troponin I (< 0.04) ng/mL B-Natriuretic Peptide 22 (Less than 100) pg/mL - Radiology Data Radiology results reviewed: Yes I reviewed the patient's radiology results. - EKG Data EKG attestation: Yes I reviewed and interpreted this EKG. EKG results narrative: Sinus rhythm, rate 75, normal axis, no acute ischemic changes Critical Care Time Critical Care Time: Yes Total Critical Care Time: 30 Attestation: I personally spent ___30___ minutes devoted to the care of this critically ill patient with COPD exacerbation and possible healthcare acquired pneumonia. This time excludes the time for billable procedures.
[2018-02-16 12:17] LABS: Basophils % 0.4 %; Eosinophils # 0.1 K/mcL (0.0-0.6); Eosinophils % 0.7 %; Hematocrit 37.3 % (37.5-50.1); Hemoglobin 11.9 g/dL (12.9-16.9); Immature Granulocytes % 0.3 % (0-4); Lymphocytes # 0.5 K/mcL (0.6-4.6); Lymphocytes % 7.1 %; Mean Corpuscular HGB Conc 31.9 g/dL (31.6-35.5); Mean Corpuscular Hemoglobin 27.3 pg (28.0-33.3); Mean Corpuscular Volume 85.6 fL (83.0-100.0); Mean Platelet Volume 9.6 fL (9.4-12.4); Monocytes # 0.1 K/mcL (0.0-1.3); Monocytes % 1.1 %; Neutrophils # 6.4 K/mcL (1.6-8.9); Platelet Count 366 K/mcL (140-400); Red Blood Count 4.36 M/mcL (4.19-5.50); Red Cell Distribution Width 14.4 % (11.5-14.5); Segmented Neutrophils % 90.4 %
[2018-02-16 12:41] LABS: BUN/Creatinine Ratio 19 (6-26); Blood Urea Nitrogen 11 mg/dL (6-20); Calcium 9.9 mg/dL (8.6-10.3); Carbon Dioxide 29 mEq/L (23-29); Chloride 96 mEq/L (98-107); Glucose 99 mg/dL (70-105); Osmolality,Calculated 281 (280-300); Sodium 136 mEq/L (136-145); Troponin I < 0.03 ng/mL (< 0.04); eGFR For Non-African Americans > 60 (> 60)
[2018-02-16] MEDS ORDERED: methylPREDNISolone 125 MG/2 ML VIAL IVP ONE (13:08)
[2018-02-16] MEDS ORDERED: Naloxone 0.4 MG/ML INJ IVP PRN (13:47)
[2018-02-16] MEDS ORDERED: Saline Nasal Spray 44 ML BOTTLE NS PRN (13:51)
[2018-02-16] MEDS ORDERED: Acetaminophen 325 MG TABLET PO PRN (13:51)
[2018-02-16] MEDS ORDERED: *HR* Rivaroxaban 10 MG TABLET PO STA (13:58)
[2018-02-16] MEDS ORDERED: Isovue-370 500 ML INFUS..BTL IV ONE (13:59)
[2018-02-16] MEDS ORDERED: NON-FORMULARY MEDICATION 1 EACH EACH (Oxygen [Oxygen] 4 L) NS SCH (14:00)
--- NOTE | 2018-02-16 15:41 | Internal Med History&Physical ---
Date of Encounter: 02/16/18 Time of Encounter: 15:36 Internal Medicine - H&P: HPI Chief complaint: Shortness of Breath Admitted From: Home Plans for Post Hospital Care: Home History of present illness: Mr. Blanchard is a 58 year old male with past history of pulmonary embolism, COPD, CHF who presents to the emergency department chief complaint of shortness of breath. Patient states that over the past several days he has been progressively more short of breath. He is using 4 L nasal cannula continuously at home which is his home dose. The patient states that when he ambulates he is now dropping into the low 80s and he was 80% this morning which prompted him to come to the emergency department. The patient admits to recent cough with thick sputum production which is new along with subjective fevers. The patient states he is also been very wheezy. The patient admits to medication compliance with the exception of Xarelto. Patient states saw add on television about the dangers of xarelto and he was scared he would if he continue to take this so he stopped 1 week ago. The patient was very conversationally dyspneic and in respiratory distress in emergency and given 125 mg of IV site Medrol as well as empiric azithromycin Zosyn and vancomycin for suspected pneumonia. Chest x-ray revealed cardiomegaly with mild vascular congestion and no obvious infiltrate. I informed the patient that we will continue treating his COPD exacerbation as well as continue antibiotics for possible pneumonia but discussed the importance of restarting Xarelto especially in light that he could have recurrence of his pulmonary embolism which could be contributing to his symptoms. The patient is in agreement to restart Xarelto and dose was given earlier today. It will be restarted. Patient admits to shortness of breath, cough, sputum production, subjective fevers, generalized weakness. Patient denies any chest pain, palpitations, nausea, vomiting, diarrhea, blurry vision, double vision, sick contacts. She denies any recent travel. He states he lives alone at home and does not get out of the house much and is very sedentary. Past Med Surg Social Fam HX - Past Medical History Medical history: asthma, CHF, COPD, hyperlipidemia, hypertension, pulmonary embolus Psychiatric history: anxiety, depression - Past Surgical History Surgical History: no surgical history - Social History Smoking Status: Former smoker Smokeless Tobacco Status: No Alcohol use: rarely Drug use: none - Family History Father Living Status: Hx Family Cancer: Yes Mother Living Status: - Additional Family History Additional family history: Family history reviewed with patient and not pertinent other than was as above. Internal Medicine - H&P: Meds Docusate [Colace] 100 mg PO BID 07/25/17 [History] Oxygen 4 l NS AD 07/25/17 [History] Roflumilast [Daliresp] 500 mcg PO DAILY 07/25/17 [History] Furosemide [Lasix] 40 mg PO TID #90 tab 09/20/17 [Rx] Mometasone/Formoterol [Dulera 200 Mcg/5 Mcg Inhaler] 2 puff IH BID #1 hfa.aer.ad 09/20/17 [Rx] Rivaroxaban [Xarelto] 20 mg PO DAILY #60 tablet 09/20/17 [Rx] Omeprazole [PriLOSEC] 20 mg PO 0730 09/30/17 [History] Loratadine [Claritin] 10 mg PO DAILY #30 tablet 11/09/17 [Rx] Gabapentin [Neurontin] 300 mg PO TID 12/31/17 [History] Triamterene/HCTZ 37.5/25mg [Dyazide] 1 tab PO DAILY 12/31/17 [History] Ipratropium/Albuterol Neb [Duoneb] 3 ml IH Q4H PRN #60 inhsol 01/06/18 [Rx] Albuterol Sulfate [Albuterol Inhaler] 2 puff IH Q4H PRN #1 inhaler 01/17/18 [Rx] Albuterol Neb [Proventil Neb] 2.5 mg IH Q4HR PRN 02/16/18 [History] cephALEXin [Keflex] 500 mg PO QID 02/16/18 [History] 3 Allergy/AdvReac Type Severity Reaction Status Date / Time levofloxacin AdvReac Blurry Verified 02/16/18 15:06 Vision All Systems PM: A 10-system review of systems was performed and is negative for pertinent findings except as documented above in the HPI. Review of systems: 10 point review of systems is obtained and is otherwise negative other than described in history of present illness - Constitutional Vitals: Temp Pulse Resp BP Pulse Ox 97.8 F 98 20 125/79 96 02/16/18 11:40 02/16/18 13:26 02/16/18 14:39 02/16/18 14:39 02/16/18 13:26 Exam: Constitutional: nad, on nasal canula, alert Psych: AAO x 3 HEENT: NCAT, EOMI Neck: supple, no JVD Cardio: regular rate and rhythm, +s1s2, no murmurs/rubs/gallops, no JVD Resp: Faint bibasilar crackles, decreased air exchange, severe expiratory wheezes Abd: soft, non tender/non distended, positive bowel sounds; reducible hernia present Extremities: no clubbing/cyanosis/edema appreciated Neuro: no focal deficits appreciated Lymph: no cervical/supraclavicular adenopahty apprecitated Internal Med - H&P Results - Labs CBC & Chem 7: 02/16/18 11:57 02/16/18 11:57 - Assessment and plan (1) Acute and chronic respiratory failure with hypoxia Current Visit: Yes Status: Acute Assessment and plan: -not hypoxic in ED but 80% at home today -mutlifactorial in etiology -secondary to COPD exacerbation with component of pneumonia/bronchitis -IV steroids and bronchodialators for copd -IV abx for pna -incentive spirometer -hx of PE and not taking xarelot for 1 week; will repeat CTA to reevaluate -xarelto restarted -cpap qhs for geronimo; has at home -echo to eval for EF and right heart strain; has chronic diastolic HF (2) Acute exacerbation of chronic obstructive airways disease Current Visit: Yes Status: Acute Assessment and plan: -on 4l nc at home; continue -IV steroids -bronchodilators -appropriate home inhalers (3) Pneumonia Current Visit: Yes Status: Acute Assessment and plan: -clinical picture suspicious for pneumonia with subjective fevers; productive cough, worsening sob; xray unremarkable for obvious infiltrate -history of sepsis and pna -given iv zosyn/vanco/azithro in ed -will continue vanco/zosyn for now; deescalate quickly if able -check blood and sputum cx -check RIP -check leigonella and strep pneumo antigens -continue supplemental oxygen -incentive spirometer Qualifiers: Pneumonia type: due to unspecified organism Laterality: unspecified laterality Lung location: unspecified part of lung Qualified Code(s): J18.9 - Pneumonia, unspecified organism (4) Diastolic CHF Current Visit: Yes Status: Acute Assessment and plan: -Chronic diastolic HRpEF -Could be contributing to his LEMOS -Unsure of actual compliance -start po lasix 40mg bid -strict I/Os -repeat echo Qualifiers: Heart failure chronicity: chronic Qualified Code(s): I50.32 - Chronic diastolic (congestive) heart failure (5) History of pulmonary embolism Current Visit: Yes Status: Chronic Assessment and plan: -stopped taking xarelto 1 week ago due to tv commercial -recheck CTA to eval for PE -xarelto restarted earlier today -resume 20mg daily (6) DVT prophylaxis Current Visit: Yes Status: Acute Assessment and plan: -restart xarelto - Time Spent With Patient Total time spent is greater than 50% in coordination of care (as documented) at patient's floor/unit and/or counseling patient: Greater than 35 minutes (40 minutes)
[2018-02-16] MEDS: Gabapentin 300 MG CAPSULE PO SCH ×2 (15:50→20:33)
[2018-02-16] MEDS: Furosemide 40 MG TABLET PO SCH (15:50)
[2018-02-16] MEDS: methylPREDNISolone 125 MG/2 ML VIAL IVP SCH ×3 (15:51→23:50)
[2018-02-16] MEDS: Ipratropium/Albuterol Neb 3 ML IH SCH ×3 (16:47→20:16)
[2018-02-16] MEDS: (Mometasone/Formoterol [Dulera 200 Mcg/5 Mcg Inhaler] IH SCH (20:32)
[2018-02-16 20:49] LABS: Adenovirus Not Detected (Not Detect); Bordetella Pertussis Not Detected (Not Detect); Chlamydophila pneumoniae Not Detected (Not Detect); Coronavirus 229E Not Detected (Not Detect); Coronavirus HKU1 Not Detected (Not Detect); Coronavirus NL63 Not Detected (Not Detect); Coronavirus OC43 Not Detected (Not Detect); Human Metapneumovirus Not Detected (Not Detect); Human Rhinovirus/Enterovirus Not Detected (Not Detect); Influenza A Subtype 2009 H1 Not Detected (Not Detect); Influenza A Untypeable Not Detected (Not Detect); Influenza B Not Detected (Not Detect); Mycoplasma pneumoniae Not Detected (Not Detect); Parainfluenza Virus 1 Not Detected (Not Detect); Parainfluenza Virus 2 Not Detected (Not Detect); Parainfluenza Virus 3 Not Detected (Not Detect); Parainfluenza Virus 4 Not Detected (Not Detect); Respiratory Syncytial Virus Not Detected (Not Detect)
[2018-02-16] MEDS: Piperacillin/Tazobactam 3.375 GM in 0.9 % Sodium Chloride Mini Bag 100 ML IVPB SCH (23:51)
[2018-02-17] MEDS: Ipratropium/Albuterol Neb 3 ML IH SCH ×4 (00:23→11:10)
[2018-02-17] MEDS: methylPREDNISolone 125 MG/2 ML VIAL IVP SCH ×2 (06:02→10:17)
[2018-02-17 06:26] LABS: Hematocrit 31.3 % (37.5-50.1); Immature Granulocytes % 0.6 % (0-4); Lymphocytes # 0.7 K/mcL (0.6-4.6); Lymphocytes % 21.4 %; Mean Corpuscular HGB Conc 31.6 g/dL (31.6-35.5); Mean Corpuscular Hemoglobin 26.9 pg (28.0-33.3); Mean Corpuscular Volume 85.1 fL (83.0-100.0); Mean Platelet Volume 10.1 fL (9.4-12.4); Monocytes % 0.9 %; Neutrophils # 2.6 K/mcL (1.6-8.9); Platelet Count 336 K/mcL (140-400); Red Blood Count 3.68 M/mcL (4.19-5.50); Red Cell Distribution Width 14.4 % (11.5-14.5); Segmented Neutrophils % 77.1 %
[2018-02-17 06:33] LABS: Hemoglobin 9.9 g/dL (12.9-16.9)
[2018-02-17 06:47] LABS: BUN/Creatinine Ratio 20 (6-26); Blood Urea Nitrogen 15 mg/dL (6-20); Calcium 8.9 mg/dL (8.6-10.3); Carbon Dioxide 27 mEq/L (23-29); Chloride 100 mEq/L (98-107); Glucose 291 mg/dL (70-105); Osmolality,Calculated 292 (280-300); Phosphorous 2.9 mg/dL (2.7-4.5); Potassium 3.7 mEq/L (3.5-5.1); Sodium 135 mEq/L (136-145); eGFR For Non-African Americans > 60 (> 60)
[2018-02-17] MEDS: Furosemide 40 MG TABLET PO SCH (08:26)
[2018-02-17] MEDS: Gabapentin 300 MG CAPSULE PO SCH (08:26)
[2018-02-17] MEDS: (Mometasone/Formoterol [Dulera 200 Mcg/5 Mcg Inhaler] IH SCH (08:27)
[2018-02-17] MEDS ORDERED: Loratadine 10 MG TABLET PO SCH (09:00)
[2018-02-17] MEDS: Piperacillin/Tazobactam 3.375 GM in 0.9 % Sodium Chloride Mini Bag 100 ML IVPB SCH (10:17)
[2018-02-17 11:09] VITALS: BP 116/67
--- NOTE | 2018-02-17 12:04 | Internal Med Progress Note ---
Hospitalist Progress Note - Encounter Date of Encounter: 02/17/18 - Exam Vitals: Temp Pulse Resp BP Pulse Ox 98.3 F 66 18 116/67 96 02/17/18 11:08 02/17/18 11:08 02/17/18 11:11 02/17/18 11:08 02/17/18 11:11 - Time Spent with Patient Total time spent is greater than 50% in coordination of care (as documented) at patient's floor/unit and/or counseling patient: Internal Medicine: Result - Labs CBC & Chem 7: 02/17/18 05:13 02/17/18 05:13 Labs: Short CBC 02/17/18 Range/Units 05:13 WBC 3.4 L D (4.3-11.1) K/mcL Hgb 9.9 L D (12.9-16.9) g/dL Hct 31.3 L (37.5-50.1) % Plt Count 336 (140-400) K/mcL Neutrophils # 2.6 (1.6-8.9) K/mcL BMP 02/17/18 05:13 Sodium 135 L Potassium 3.7 Chloride 100 Carbon Dioxide 27 BUN 15 Creatinine 0.75 Glucose 291 H Calcium 8.9 Consult Discharge Plan - Plan Referrals: Marilyn Rojas, [employer] [Primary Care Provider] -
[2018-02-17] MEDS ORDERED: Aminoglycoside Consult 1 EACH MC ONE (14:27)
--- NOTE | 2018-02-17 15:14 | Discharge Summary ---
- NOTES TO OUTPATIENT PROVIDER Notes to Outpatient Provider: admitted with pneumonia, AECOPD and HF, left agianst medical advice Orders not resulted at time of discharge: Pending orders 02/16/18 16:17 Legionella Type 1 Antibody,IgM Routine Date of Encounter: 02/17/18 Time of Encounter: 13:00 - Discharge Diagnosis (1) Left against medical advice Priority: Primary Status: Acute (2) Acute and chronic respiratory failure with hypoxia Priority: Primary Status: Acute (3) Acute exacerbation of chronic obstructive airways disease Priority: Primary Status: Acute (4) Left lower lobe pneumonia Priority: Primary Status: Acute Qualifiers: Pneumonia type: due to unspecified organism Qualified Code(s): J18.1 - Lobar pneumonia, unspecified organism (5) COPD exacerbation Priority: Primary Status: Resolved Hospital course: Mr. Blanchard is a 58 year old man with past history of pulmonary embolism, COPD, CHF who presented to the emergency department with shortness of breath and hypoxia with O2 sat of low 80s with ambulation while wearing home O2 at 4 l/nc. He reported new cough with thick sputum production along with subjective fevers. The patient stated that he was also very wheezy. The patient reported medication adherence with the exception of Xarelto. He said that he stopped Xarelto due to dangers mentioned in a television commercial. He was found to have acute hypoxic resp failure and AECOPD with possible PNA, and was started on IV steroids, IV vancomycin / Zosyn and scheduled and prn bronchodilator nebulization. In less than 24 hours of starting antibiotics and treatment, patient felt better and asked to be discharged right away. I extensively counseled the patient that considering his underlying poor lung reserve, he should complete 48 hours of IV antibiotics and wait for blood cultures to be negative at 48 hours before discharge on an oral antibiotics, but he decided to leave against medical advice. He remains at high risk of worsening respiratory failure and readmission. He was instructed to return to the hospital if he worsens in anyway. Acute and chronic respiratory failure with hypoxia Acute exacerbation of chronic obstructive airways disease Pneumonia Diastolic CHF - improving with treatment but not at baseline at the time of discharge. hyp- not hypoxic in ED but 80% at home today - secondary to COPD exacerbation with component of pneumonia/bronchitis and HFpEF. PE was ruled out by CTA. LLL scarring was noted. TTE showed preserved EF. History of pulmonary embolism -patient was counseled by my colleague Dr. Balderas, and he agreed to resume Xarelto. Left against medical advice He remains at high risk of worsening respiratory failure and readmission. He was instructed to return to the hospital if he worsens in anyway. Med rec and a safe discharge plan could not be formulated prior to him leaving AMA. Discharge discussed with: patient, nurse - Time Spent with Patient Total time spent providing and/or coordinating discharge services: Less than 30 minutes - Discharge Medications Home Medications: Docusate [Colace] 100 mg PO BID 07/25/17 [History] Oxygen 4 l NS AD 07/25/17 [History] Roflumilast [Daliresp] 500 mcg PO DAILY 07/25/17 [History] Furosemide [Lasix] 40 mg PO TID #90 tab 09/20/17 [Rx] Mometasone/Formoterol [Dulera 200 Mcg/5 Mcg Inhaler] 2 puff IH BID #1 hfa.aer.ad 09/20/17 [Rx] Rivaroxaban [Xarelto] 20 mg PO DAILY #60 tablet 09/20/17 [Rx] Omeprazole [PriLOSEC] 20 mg PO 0730 09/30/17 [History] Loratadine [Claritin] 10 mg PO DAILY #30 tablet 11/09/17 [Rx] Gabapentin [Neurontin] 300 mg PO TID 12/31/17 [History] Triamterene/HCTZ 37.5/25mg [Dyazide] 1 tab PO DAILY 12/31/17 [History] Ipratropium/Albuterol Neb [Duoneb] 3 ml IH Q4H PRN #60 inhsol 01/06/18 [Rx] Albuterol Sulfate [Albuterol Inhaler] 2 puff IH Q4H PRN #1 inhaler 01/17/18 [Rx] Albuterol Neb [Proventil Neb] 2.5 mg IH Q4HR PRN 02/16/18 [History] cephALEXin [Keflex] 500 mg PO QID 02/16/18 [History] Allergies/Adverse Reactions: 3 Allergy/AdvReac Type Severity Reaction Status Date / Time levofloxacin AdvReac Blurry Verified 02/16/18 15:06 Vision Date of admission: 02/16/18 14:05 Primary care physician: Marilyn Rojas CNP - Constitutional Vitals: Temp Pulse Resp BP Pulse Ox 98.3 F 66 18 116/67 96 02/17/18 11:08 02/17/18 11:08 02/17/18 11:11 02/17/18 11:08 02/17/18 11:11 Exam: Constitutional: conversational dyspnea vs purse lip breathing, not using accessory muscles Psych: AAO x 3 HEENT: no icterus Neck: supple, no JVD Cardio: regular rate and rhythm, +s1s2, no murmurs/rubs/gallops, no JVD Resp: Fair air entry, left > right basilar coarse crakcles and rhonchi. Mild expiratory wheeze Abd: soft, non tender/non distended, no guarding or rebound Extremities: no clubbing/cyanosis/edema appreciated Neuro: no focal deficits appreciated, no dysarthria - Patient Status Disposition: Left Against Medical Advice Condition: Fair - Discharge Instructions Follow Up With: Marilyn Rojas CNP [Primary Care Provider] -
[2018-02-17] MEDS ORDERED: *HR* Rivaroxaban 10 MG TABLET PO SCH (17:00)
--- NOTE | 2018-02-17 23:09 | Electrocardiograph Report ---
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
== END 2018-02-17 14:28 | disposition left against medical advice (07) ==
LOC: 3BNU 11:27 → EMEROOARM 11:27 → 3BNU 15:10
PROVIDERS: ADMIT Internal Medicine; ATTEND Internal Medicine

== ENCOUNTER 2018-02-27 16:18 | Inpatient (IN) ==
--- NOTE | 2018-02-27 17:42 | Emergency Department Note ---
Disposition Clinical Impression: Left lower lobe pneumonia Qualifiers: Pneumonia type: due to unspecified organism Qualified Code(s): J18.1 - Lobar pneumonia, unspecified organism Disposition: Admitted As Inpatient Condition: Fair Referrals: Marilyn Rojas CNP [Primary Care Provider] - Time of Disposition: 19:23 General Adult HPI - General Chief complaint: ED Shortness of Breath/Dyspnea Stated complaint: "Hx of Pneumonia/Sent by PCP" Time Seen by Provider: 02/27/18 17:02 Source: patient Mode of arrival: wheelchair Limitations: no limitations Nursing Notes Reviewed: Yes Vital Signs Reviewed: Yes - History of Present Illness HPI Narrative: 58 year old man with pmh significant for COPD on 4L home o2 always, HFpEF ECHO EF 50-55%, and hx of PE who is not anticoagulated due to self stopping after seeing commercial on tv that said it was dangerous who was transferred to ED from pcp clinic. He was admitted on 02/16/18 for COPD exacerbation/pneumonia and started on IV vanc, zosyn and steroids. He thought he was feeling better the next morning and left hospital ama. Over the past 3-4 days he has had worsening SOB, yellow productive cough, pleuritic chest pain, nausea, subjective fever/chills, and malaise. He denies diplopia, blurry vision, vomiting, abdominal pain besides hernia pain periumbilical, dizziness, syncope. Pt Subjective Complaint: sob Onset (ago): day(s) Location: chest Radiation: non-radiation Pain Scale: 0 Improves with: nothing Worsens with: movement Associated symptoms: Reports: chest pain, cough, fever/chills, malaise, shortness of breath, other (nausea) Treatments Prior to Arrival: none - Related Data Home Medications Medication Instructions Recorded Confirmed Docusate [Colace] 100 mg PO BID 07/25/17 02/27/18 Oxygen 4 l NS AD 07/25/17 02/27/18 Roflumilast [Daliresp] 500 mcg PO DAILY 07/25/17 02/27/18 Omeprazole [PriLOSEC] 20 mg PO 0730 09/30/17 02/27/18 Gabapentin [Neurontin] 300 mg PO TID 12/31/17 02/27/18 Triamterene/HCTZ 37.5/25mg 1 tab PO DAILY 12/31/17 02/27/18 [Dyazide] Albuterol Neb [Proventil Neb] 2.5 mg IH Q4HR PRN 02/16/18 02/27/18 Previous Rx's Medication Instructions Recorded Furosemide [Lasix] 40 mg PO TID #90 tab 09/20/17 Mometasone/Formoterol [Dulera 200 2 puff IH BID #1 hfa.aer.ad 09/20/17 Mcg/5 Mcg Inhaler] Rivaroxaban [Xarelto] 20 mg PO DAILY #60 tablet 09/20/17 Loratadine [Claritin] 10 mg PO DAILY #30 tablet 11/09/17 Ipratropium/Albuterol Neb [Duoneb] 3 ml IH Q4H PRN #60 inhsol 01/06/18 Albuterol Sulfate [Albuterol 2 puff IH Q4H PRN #1 inhaler 01/17/18 Inhaler] Allergies Allergy/AdvReac Type Severity Reaction Status Date / Time levofloxacin AdvReac Blurry Verified 02/16/18 15:06 [facility] systems ED: reviewed and negative except as stated. Past Medical History - Past Medical History Medical history: Reports: asthma, CHF, COPD, hyperlipidemia, hypertension, pulmonary embolus Surgical history: Reports: no surgical history Psychiatric history: Reports: anxiety, depression - Social History Smoking Status: Former smoker Smokeless Tobacco Status: No Alcohol use: Reports: rarely Drug use: Reports: none Physical Exam - General Limitations: no limitations General appearance: alert, in no apparent distress - Head Head exam: atraumatic, normocephalic, normal inspection - Eye Eye exam: Present: normal appearance - ENT ENT exam: mucous membranes moist - Neck Neck exam: Present: normal inspection, trachea midline - Chest Chest inspection: Present: normal inspection, symmetric chest wall rise - Respiratory Respiratory exam: Present: wheezes (exp throughout ), other (coarse throughout ) - Cardiovascular Cardiovascular exam: Present: regular rate, normal rhythm, normal heart sounds, +S1, +S2 - Abdominal Exam Abdominal exam: Present: soft, tenderness (just inferior to umbilicus ), hernia (4cm hernia just inferior to umbilicus ). Absent: distention, guarding, rebound , rigidity Abdominal tenderness: Present: mild - Extremities Exam Extremities exam: Present: normal capillary refill, pedal edema - Neurological Exam Neurological exam: Present: alert - Psychiatric Psychiatric exam: Present: normal affect - Skin Skin exam: Present: warm, dry, intact, normal color Course Course Narrative: arrives from pcp with yellow productive cough, subjective fever/chills, and worsening sob for past 4 days. He was admitted 02/16/18 for COPD exacerbation/ pneumonia and left ama the next day. He is afebrile here, diffuse exp wheezing, O2 sat 94% on 4L o2 nc. Will get cxr, cbc, bmp now along with duonebs. ECG 1641: nsr, hr 75, pr 142, qt 385, normal p axis, pvc, normal transition v2 no acute st elevations/depressions. 191: CXR New dependent left basilar opacification suggesting possible infiltrate versus atelectasis. WBC 9.8, afebrile since arrival. Wheezing less. Will start IV vanc, zosyn and doxycycline for possible HAP in setting of recent hospital admission with IV abx and worsening symptoms. Will also draw blood cultures x2, and admit to hospitalist service who accepted. Vital Signs Temperature 97.9 F 02/27/18 16:28 Pulse Rate 86 02/27/18 16:28 Respiratory Rate 18 02/27/18 16:28 Blood Pressure 108/77 02/27/18 16:28 O2 Sat by Pulse Oximetry 94 02/27/18 16:28 Temperature 97.9 F 02/27/18 16:28 Pulse Rate 86 02/27/18 16:28 Respiratory Rate 18 02/27/18 16:28 Blood Pressure 108/77 02/27/18 16:28 O2 Sat by Pulse Oximetry 95 02/27/18 17:27 Oxygen Delivery Oxygen Delivery Nasal Cannula Medical Decision Making - Lab Data Result diagrams: 02/27/18 17:34 02/27/18 17:23 Lab Results 02/27/18 02/27/18 Range/Units 17:23 17:34 WBC 9.8 (4.3-11.1) K/mcL RBC 4.69 (4.19-5.50) M/mcL Hgb 12.6 L (12.9-16.9) g/dL Hct 40.3 (37.5-50.1) % MCV 85.9 (83.0-100.0) fL MCH 26.9 L (28.0-33.3) pg MCHC 31.3 L (31.6-35.5) g/dL RDW 14.7 H (11.5-14.5) % Plt Count 392 (140-400) K/mcL MPV 9.9 (9.4-12.4) fL Immature Gran % 0.3 (0-4) % Seg Neutrophils % 70.9 % Lymphocytes % 19.9 % Monocytes % 5.1 % Eosinophils % 3.1 % Basophils % 0.7 % Neutrophils # 6.9 (1.6-8.9) K/mcL Lymphocytes # 1.9 (0.6-4.6) K/mcL Monocytes # 0.5 (0.0-1.3) K/mcL Eosinophils # 0.3 (0.0-0.6) K/mcL Basophils # 0.1 (0.0-0.2) K/mcL Sodium 136 (136-145) mEq/L Potassium 3.5 (3.5-5.1) mEq/L Chloride 93 L (98-107) mEq/L Carbon Dioxide 34 H (23-29) mEq/L BUN 19 (6-20) mg/dL Creatinine 0.64 L (0.70-1.30) mg/dL Est GFR ( Amer) > 60 (> 60) Est GFR (Non-Af Amer) > 60 (> 60) BUN/Creatinine Ratio 30 H (6-26) Glucose 82 (70-105) mg/dL Calculated Osmolality 283 (280-300) Calcium 10.2 (8.6-10.3) mg/dL
[2018-02-27 18:28] LABS: Basophils # 0.1 K/mcL (0.0-0.2); Basophils % 0.7 %; Eosinophils # 0.3 K/mcL (0.0-0.6); Eosinophils % 3.1 %; Hematocrit 40.3 % (37.5-50.1); Hemoglobin 12.6 g/dL (12.9-16.9); Immature Granulocytes % 0.3 % (0-4); Lymphocytes # 1.9 K/mcL (0.6-4.6); Lymphocytes % 19.9 %; Mean Corpuscular HGB Conc 31.3 g/dL (31.6-35.5); Mean Corpuscular Hemoglobin 26.9 pg (28.0-33.3); Mean Corpuscular Volume 85.9 fL (83.0-100.0); Mean Platelet Volume 9.9 fL (9.4-12.4); Monocytes # 0.5 K/mcL (0.0-1.3); Monocytes % 5.1 %; Neutrophils # 6.9 K/mcL (1.6-8.9); Platelet Count 392 K/mcL (140-400); Red Blood Count 4.69 M/mcL (4.19-5.50); Red Cell Distribution Width 14.7 % (11.5-14.5); Segmented Neutrophils % 70.9 %
[2018-02-27 18:46] LABS: BUN/Creatinine Ratio 30 (6-26); Blood Urea Nitrogen 19 mg/dL (6-20); Calcium 10.2 mg/dL (8.6-10.3); Carbon Dioxide 34 mEq/L (23-29); Chloride 93 mEq/L (98-107); Glucose 82 mg/dL (70-105); Osmolality,Calculated 283 (280-300); Potassium 3.5 mEq/L (3.5-5.1); Sodium 136 mEq/L (136-145); eGFR For Non-African Americans > 60 (> 60)
[2018-02-27] MEDS ORDERED: Piperacillin/Tazobactam 3.375 GM in 0.9 % Sodium Chloride Mini Bag 100 ML IVPB ONE (19:04)
[2018-02-27] MEDS ORDERED: Doxycycline 100 MG in 0.9 % Sodium Chloride Mini Bag 100 ML IVPB ONE (19:05)
--- NOTE | 2018-02-27 19:09 | Emergency Department Note ---
Disposition Clinical Impression: Left lower lobe pneumonia Qualifiers: Pneumonia type: due to unspecified organism Qualified Code(s): J18.1 - Lobar pneumonia, unspecified organism Disposition: Admitted As Inpatient Condition: Fair General Adult HPI - General Chief complaint: ED Shortness of Breath/Dyspnea Stated complaint: "Hx of Pneumonia/Sent by PCP" Time Seen by Provider: 02/27/18 17:02 Source: patient Mode of arrival: wheelchair Limitations: no limitations - History of Present Illness Location: chest Pain Scale: 0 Improves with: nothing Worsens with: movement Associated symptoms: Reports: chest pain, cough, fever/chills, malaise, shortness of breath, other (nausea) Treatments Prior to Arrival: none - Related Data Home Medications Medication Instructions Recorded Confirmed Oxygen 4 l NS AD 07/25/17 03/06/18 Roflumilast [Daliresp] 500 mcg PO DAILY 07/25/17 03/06/18 Omeprazole [PriLOSEC] 20 mg PO 0730 09/30/17 03/06/18 Gabapentin [Neurontin] 300 mg PO TID 12/31/17 03/06/18 Triamterene/HCTZ 37.5/25mg 1 tab PO DAILY 12/31/17 03/06/18 [Dyazide] Albuterol Neb [Proventil Neb] 2.5 mg IH Q4HR PRN 02/16/18 03/06/18 HYDROcodone/Acet 5/325 mg [[place] 1 tab PO Q6H PRN 02/27/18 03/06/18 5-325 mg] Rivaroxaban [Xarelto] 20 mg PO DAILY@1700 03/06/18 03/06/18 Previous Rx's Medication Instructions Recorded Furosemide [Lasix] 40 mg PO TID #90 tab 09/20/17 Mometasone/Formoterol [Dulera 200 2 puff IH BID #1 hfa.aer.ad 09/20/17 Mcg/5 Mcg Inhaler] Loratadine [Claritin] 10 mg PO DAILY #30 tablet 11/09/17 Ipratropium/Albuterol Neb [Duoneb] 3 ml IH Q4H PRN #60 inhsol 01/06/18 Albuterol Sulfate [Albuterol 2 puff IH Q4H PRN #1 inhaler 01/17/18 Inhaler] Cefdinir [Omnicef] 300 mg PO BID 5 Days #10 capsule 03/01/18 predniSONE [PredniSONE] 40 mg PO DAILY 5 Days #10 tablet 03/01/18 Allergies Allergy/AdvReac Type Severity Reaction Status Date / Time levofloxacin AdvReac Blurry Verified 03/06/18 11:33 [facility] Past Medical History - Past Medical History Medical history: Reports: asthma, CHF, COPD, hyperlipidemia, hypertension, pulmonary embolus Surgical history: Reports: no surgical history Psychiatric history: Reports: anxiety, depression - Social History Smoking Status: Former smoker Smokeless Tobacco Status: No Alcohol use: Reports: rarely Drug use: Reports: none Physical Exam - General Limitations: no limitations General appearance: alert, in no apparent distress Course Vital Signs Temperature 97.9 F 02/27/18 16:28 Pulse Rate 86 02/27/18 16:28 Respiratory Rate 18 02/27/18 16:28 Blood Pressure 108/77 02/27/18 16:28 O2 Sat by Pulse Oximetry 94 02/27/18 16:28 Temperature 98.1 F 03/01/18 08:48 Pulse Rate 110 03/01/18 08:48 Respiratory Rate 19 03/01/18 08:48 Blood Pressure 120/58 03/01/18 08:48 O2 Sat by Pulse Oximetry 96 03/01/18 08:48 Oxygen Delivery Oxygen Delivery Nasal Cannula Medical Decision Making - Lab Data Result diagrams: 02/28/18 00:55 02/28/18 00:55 Lab Results 02/27/18 02/27/18 Range/Units 17:23 17:34 WBC 9.8 (4.3-11.1) K/mcL RBC 4.69 (4.19-5.50) M/mcL Hgb 12.6 L (12.9-16.9) g/dL Hct 40.3 (37.5-50.1) % MCV 85.9 (83.0-100.0) fL MCH 26.9 L (28.0-33.3) pg MCHC 31.3 L (31.6-35.5) g/dL RDW 14.7 H (11.5-14.5) % Plt Count 392 (140-400) K/mcL MPV 9.9 (9.4-12.4) fL Immature Gran % 0.3 (0-4) % Seg Neutrophils % 70.9 % Lymphocytes % 19.9 % Monocytes % 5.1 % Eosinophils % 3.1 % Basophils % 0.7 % Neutrophils # 6.9 (1.6-8.9) K/mcL Lymphocytes # 1.9 (0.6-4.6) K/mcL Monocytes # 0.5 (0.0-1.3) K/mcL Eosinophils # 0.3 (0.0-0.6) K/mcL Basophils # 0.1 (0.0-0.2) K/mcL Sodium 136 (136-145) mEq/L Potassium 3.5 (3.5-5.1) mEq/L Chloride 93 L (98-107) mEq/L Carbon Dioxide 34 H (23-29) mEq/L BUN 19 (6-20) mg/dL Creatinine 0.64 L (0.70-1.30) mg/dL Est GFR ( Amer) > 60 (> 60) Est GFR (Non-Af Amer) > 60 (> 60) BUN/Creatinine Ratio 30 H (6-26) Glucose 82 (70-105) mg/dL Calculated Osmolality 283 (280-300) Calcium 10.2 (8.6-10.3) mg/dL Attestation Statement - Attestation Attestation: I examined this patient and my medical decision-making was reviewed with the Resident Physician. I agree with the documented findings, disposition and treatment plan as described except to the extent set forth below. Patient was hospitalized about a week and a half ago with pneumonia on IV antibiotics who signed out AMA, now returns with worsening symptoms. He is at high risk for drug resistant bacteria, received 2 doses of vancomycin and Zosyn while she was admitted last time. Restarting vancomycin and Zosyn, we will add doxycycline to cover atypicals, since he is allergic to quinolones.
[2018-02-27] MEDS ORDERED: Acetaminophen 325 MG TABLET PO PRN (20:57)
[2018-02-27] MEDS ORDERED: Naloxone 0.4 MG/ML INJ IVP PRN (20:57)
[2018-02-27] MEDS ORDERED: Albuterol 2.5 MG/3 ML NEBULIZER IH PRN (21:08)
--- NOTE | 2018-02-27 21:36 | Internal Med History&Physical ---
<Neymar Gill - Last Filed: 02/27/18 23:57> Date of Encounter: 02/27/18 Time of Encounter: 21:28 Internal Medicine - H&P: HPI Chief complaint: Shortness of Breath Admitted From: Emergency Dept Plans for Post Hospital Care: Home History of present illness: Mr. Blanchard is a 58 year old male with past medical history of asthma, CHF, COPD , HLD, HTN, PE. He presented for 3-4 days of worsening shortness of breath, yellow sputum, pleuritic type chest pain, fever and chills. He was recently admitted for same complaint on 02/17/18 and left AMA after one day because he felt better. He denies any cardiac type chest pain, abdominal pain, nausea or vomiting, syncope. Chest x-ray in the ED showed left basilar opacification, possibly pneumonia. He has a previous history of smoking but does not currently smoke. He denies any travel or recent medication changes. Vital signs on admission are within normal limits, CBC/BMP noncontributory. Patient was given 1 dose each of doxycycline and Zosyn in the emergency department. Past Med Surg Social Fam HX - Past Medical History Medical history: asthma, CHF, COPD, hyperlipidemia, hypertension, pulmonary embolus Psychiatric history: anxiety, depression - Past Surgical History Surgical History: no surgical history - Social History Smoking Status: Former smoker Smokeless Tobacco Status: No Alcohol use: rarely Drug use: none - Family History Father Living Status: Hx Family Cancer: Yes Mother Living Status: Hx Family Cancer: Yes Internal Medicine - H&P: Meds Docusate [Colace] 100 mg PO BID 07/25/17 [History] Oxygen 4 l NS AD 07/25/17 [History] Roflumilast [Daliresp] 500 mcg PO DAILY 07/25/17 [History] Furosemide [Lasix] 40 mg PO TID #90 tab 09/20/17 [Rx] Mometasone/Formoterol [Dulera 200 Mcg/5 Mcg Inhaler] 2 puff IH BID #1 hfa.aer.ad 09/20/17 [Rx] Rivaroxaban [Xarelto] 20 mg PO DAILY #60 tablet 09/20/17 [Rx] Omeprazole [PriLOSEC] 20 mg PO 0730 09/30/17 [History] Loratadine [Claritin] 10 mg PO DAILY #30 tablet 11/09/17 [Rx] Gabapentin [Neurontin] 300 mg PO TID 12/31/17 [History] Triamterene/HCTZ 37.5/25mg [Dyazide] 1 tab PO DAILY 12/31/17 [History] Ipratropium/Albuterol Neb [Duoneb] 3 ml IH Q4H PRN #60 inhsol 01/06/18 [Rx] Albuterol Sulfate [Albuterol Inhaler] 2 puff IH Q4H PRN #1 inhaler 01/17/18 [Rx] Albuterol Neb [Proventil Neb] 2.5 mg IH Q4HR PRN 02/16/18 [History] HYDROcodone/Acet 5/325 mg [[place] 5-325 mg] 1 tab PO Q6H PRN 02/27/18 [History] 3 Allergy/AdvReac Type Severity Reaction Status Date / Time levofloxacin AdvReac Blurry Verified 02/16/18 15:06 [facility] Systems PM: A 10-system review of systems was performed and is negative for pertinent findings except as documented above in the HPI. - Constitutional Constitutional: chills, fever(s) - Cardiovascular Cardiovascular ROS IM: dyspnea, dyspnea on exertion, no chest pain, no edema, no irregular heart rhythm, no palpitations, no syncope - Respiratory Respiratory: cough, dyspnea, dyspnea on exertion, wheezing, chest congestion, excessive phlegm production, no hemoptysis - Gastrointestinal Gastrointestinal: no abdominal pain, no diarrhea, no vomiting - Genitourinary Genitourinary ROS male: no urinary frequency, no urinary hesitancy, no urinary incontinence, no urinary urgency - Musculoskeletal Musculoskeletal ROS IM: numbness, tingling, no joint swelling - Integumentary Integumentary IM: no erythema - Neurological Neurological ROS: no abnormal speech, no confusion, no focal weakness - Psychiatric Psychiatric: no confusion - Endocrine Endocrine IM: no fatigue - Hematologic/Lymphatic Hematologic/Lymphatic: no easy bleeding - Allergic/Immunologic Allergic/Immunologic: no tongue swelling - Constitutional Vitals: Temp Pulse Resp BP Pulse Ox 98.2 F 99 16 120/85 90 02/27/18 20:42 02/27/18 20:42 02/27/18 20:42 02/27/18 20:42 02/27/18 20:42 Exam: Patient in no acute distress, alert and oriented 3 Cranial nerves II through XII intact Heart sounds significantly diminished due to chest wall expansion, regular rate and rhythm Diffuse wheeze and rhonchi auscultated, no rales, breath sounds diffusely diminished Abdomen soft and nontender with normal bowel sounds present, there is a tender reducible umbilical hernia present Bilateral lower extremities nonedematous There is a erythematous, papular, vesicular rash circumferentially around the delineation of the dorsal and plantar surface of both feet Internal Med - H&P Results - Labs CBC & Chem 7: 02/27/18 17:34 02/27/18 17:23 - Assessment and plan (1) Acute and chronic respiratory failure with hypoxia Current Visit: Yes Status: Acute Assessment and plan: Patient presented with shortness of breath, increased cough and sputum production, fever and chills, hypoxia Respiratory failure likely secondary to COPD exacerbation and healthcare associated pneumonia, heart failure exacerbation less likely Chest x-ray on admission revealed left basilar opacification, CBC/BMP/vitals within normal limits or noncontributory Patient did not meet sepsis criteria and does not clinically appear septic, white count within normal limits Plan Zosyn 3.375mg Q8H x 7 days Vancomycin pharmacy dosed Duonebs scheduled Q6H Albuterol Neb PRN Q2H Prednisone 40mg PO Daily x 5 days Supplemental O2 Continuous Pulse Ox Daily CBC/BMP (2) Acute exacerbation of chronic obstructive airways disease Current Visit: Yes Status: Acute Assessment and plan: Patient has history of COPD with frequent exacerbation and hospitalization Plan as seen above (3) Healthcare-associated pneumonia Current Visit: Yes Status: Acute Assessment and plan: Patient was admitted in the last 2 weeks for COPD exacerbation He returned today with new left lower lobe consolidation likely representing of care associated pneumonia Blood cultures pending and lactic acid pending Rest of plan as seen above (4) Diastolic CHF Current Visit: No Status: Chronic Assessment and plan: Patient has history of diastolic heart failure with preserved ejection fraction Last echocardiogram performed 02/16/18 revealed mild diastolic dysfunction with ejection fraction 50-55% Patient does not currently appear to be in exacerbation clinically Continue home dose Lasix 40 mg 3 times a day Cardiac diet ordered and we will continue to monitor Qualifiers: Heart failure chronicity: chronic Qualified Code(s): I50.32 - Chronic diastolic (congestive) heart failure (5) Essential hypertension Current Visit: No Status: Chronic Assessment and plan: Chronic hypertension managed with home medications Continue home medication of triamterene hydrochlorothiazide Blood pressure currently stable we will continue to monitor (6) GERD (gastroesophageal reflux disease) Current Visit: No Status: Chronic Assessment and plan: Continue home omeprazole Qualifiers: Esophagitis presence: without esophagitis Qualified Code(s): K21.9 - Gastro -esophageal reflux disease without esophagitis (7) History of pulmonary embolism Current Visit: No Status: Chronic Assessment and plan: History of pulmonary embolism Patient anticoagulated with Xarelto - Time Spent With Patient Total time spent is greater than 50% in coordination of care (as documented) at patient's floor/unit and/or counseling patient: <Ladonna Ward - Last Filed: 02/28/18 08:11> Date of Encounter: 02/28/18 Internal Medicine - H&P: HPI History of present illness: Mr. Blanchard is a 58 year old male All Systems PM: A 10-system review of systems was performed and is negative for pertinent findings except as documented above in the HPI. - Constitutional Vitals: Temp Pulse Resp BP Pulse Ox 98.1 F 85 18 124/84 96 02/27/18 23:34 02/27/18 23:34 02/27/18 23:34 02/27/18 23:34 02/27/18 23:34 Internal Med - H&P Results - Labs CBC & Chem 7: 02/28/18 00:55 02/28/18 00:55 - Assessment and plan (1) Acute exacerbation of chronic obstructive airways disease Current Visit: Yes Status: Acute (2) Essential hypertension Current Visit: No Status: Chronic (3) History of pulmonary embolism Current Visit: No Status: Chronic (4) GERD (gastroesophageal reflux disease) Current Visit: No Status: Chronic Qualifiers: Esophagitis presence: without esophagitis Qualified Code(s): K21.9 - Gastro -esophageal reflux disease without esophagitis (5) Diastolic CHF Current Visit: No Status: Chronic Qualifiers: Heart failure chronicity: chronic Qualified Code(s): I50.32 - Chronic diastolic (congestive) heart failure (6) Healthcare-associated pneumonia Current Visit: Yes Status: Acute (7) Acute and chronic respiratory failure with hypoxia Current Visit: Yes Status: Acute - Time Spent With Patient Total time spent is greater than 50% in coordination of care (as documented) at patient's floor/unit and/or counseling patient: - Attending Attestation Patient Seen and examined. Chart as well as labs were reviewed. Case discussed with resident. Agree with assessment and plan. Continue treatment for possible healthcare associated pneumonia and COPD exacerbation. We will check lactic acid level in the setting of patient complaint of abdominal pain in the setting of a ventral wall hernia that is reducible to rule out ischemia.
[2018-02-27] MEDS: Ipratropium/Albuterol Neb 3 ML IH SCH (22:05)
[2018-02-27] MEDS ORDERED: traMADol 50 MG TABLET PO PRN (23:15)
[2018-02-27] MEDS ORDERED: *HR* OxyCODONE Immed Rel 5 MG TABLET PO PRN (23:15)
[2018-02-28 01:09] LABS: Basophils # 0.1 K/mcL (0.0-0.2); Basophils % 0.8 %; Eosinophils # 0.3 K/mcL (0.0-0.6); Eosinophils % 3.9 %; Hematocrit 35.4 % (37.5-50.1); Hemoglobin 11.1 g/dL (12.9-16.9); Immature Granulocytes % 0.4 % (0-4); Lymphocytes # 1.6 K/mcL (0.6-4.6); Lymphocytes % 21.8 %; Mean Corpuscular HGB Conc 31.4 g/dL (31.6-35.5); Mean Corpuscular Hemoglobin 26.8 pg (28.0-33.3); Mean Corpuscular Volume 85.5 fL (83.0-100.0); Mean Platelet Volume 9.7 fL (9.4-12.4); Monocytes # 0.5 K/mcL (0.0-1.3); Monocytes % 6.5 %; Neutrophils # 4.8 K/mcL (1.6-8.9); Platelet Count 365 K/mcL (140-400); Red Blood Count 4.14 M/mcL (4.19-5.50); Red Cell Distribution Width 14.8 % (11.5-14.5); Segmented Neutrophils % 66.6 %
[2018-02-28 01:25] LABS: BUN/Creatinine Ratio 29 (6-26); Blood Urea Nitrogen 24 mg/dL (6-20); Calcium 9.5 mg/dL (8.6-10.3); Carbon Dioxide 32 mEq/L (23-29); Chloride 94 mEq/L (98-107); Glucose 137 mg/dL (70-105); Osmolality,Calculated 290 (280-300); Potassium 3.5 mEq/L (3.5-5.1); Sodium 137 mEq/L (136-145); eGFR For Non-African Americans > 60 (> 60)
[2018-02-28] MEDS: Ipratropium/Albuterol Neb 3 ML IH SCH ×5 (04:16→23:36)
[2018-02-28] MEDS: Piperacillin/Tazobactam 3.375 GM in 0.9 % Sodium Chloride Mini Bag 100 ML IVPB SCH ×3 (04:56→20:53)
[2018-02-28] MEDS: *HR* Rivaroxaban 10 MG TABLET PO SCH (08:20)
[2018-02-28] MEDS: Gabapentin 300 MG CAPSULE PO SCH ×3 (08:20→20:52)
[2018-02-28] MEDS: Furosemide 40 MG TABLET PO SCH ×3 (08:21→20:52)
[2018-02-28] MEDS: Loratadine 10 MG TABLET PO SCH (08:21)
--- NOTE | 2018-02-28 08:49 | Electrocardiograph Report ---
[place] [id number] Test Date: 2018-02-27 Pat Name: Jason Blanchard Department: EXAM4 Room: 3B Gender: M Licensed Psychiatric Technician: : 1960 Requested By: Martinez Rose Order Number: [id number] Reading MD: Roni Mcbride Measurements Intervals [place] Rate: 75 P: -21 MO: 142 QRS: 29 QRSD: 97 T: 38 QT: 385 QTc: 430 Interpretive Statements Sinus rhythm Ventricular premature complex Abnormal R-wave progression, early transition Electronically Signed On 02-28-2018 8:47:52 EDT by Roni Mcbride
[2018-02-28] MEDS ORDERED: predniSONE 20 MG TABLET PO SCH (09:00)
[2018-02-28] MEDS: methylPREDNISolone 125 MG/2 ML VIAL IVP SCH ×2 (09:32→17:04)
[2018-02-28] MEDS: *HR* LORazepam 2 MG/ML VIAL IVP PRN (09:33)
[2018-02-28 10:37] LABS: ABG Base Excess 9 mEq/L (-2 to 3); ABG HCO3 35 mEq/L (21-27); ABG Oxygen Saturation 99 % (95-98); ABG PCO2 50 mmHg (35-45); ABG PH 7.45 pH Units (7.32-7.45); ABG PO2 118 mmHg (85-104); ABG TCO2 36 mEq/L (20-26); Blood Gas Modality BiLevel; Blood Gas PEEP 8 cm H2O; Blood Gas Pressure Support 15 cm H2O
[2018-02-28] MEDS: Budesonide/Formoterol 160/4.5 1 PUFF INH IH SCH ×2 (11:31→20:00)
--- NOTE | 2018-02-28 12:08 | Internal Med Progress Note ---
Hospitalist Progress Note - Encounter Date of Encounter: 02/28/18 Time of Encounter: 12:00 - Exam Vitals: Temp Pulse Resp BP Pulse Ox 97.0 F L 67 17 107/71 96 02/28/18 08:33 02/28/18 08:17 02/28/18 11:34 02/28/18 08:17 02/28/18 11:34 Exam: Patient in no acute distress, alert and oriented 3 Cranial nerves II through XII intact Heart sounds significantly diminished due to chest wall expansion, regular rate and rhythm Diffuse wheeze and rhonchi auscultated, no rales, breath sounds diffusely diminished Abdomen soft and nontender with normal bowel sounds present, there is a tender reducible umbilical hernia present Bilateral lower extremities nonedematous There is a erythematous, papular, vesicular rash circumferentially around the delineation of the dorsal and plantar surface of both feet - Assessment and Plan (1) Acute and chronic respiratory failure with hypoxia Current Visit: Yes Status: Acute Assessment and Plan: Acute hypoxic and hypercapneic respiratory failure likely 2/2 to acute copd exacerbation Started on duonebs, antibiotics and IV steroids. ABG shwed hypercapnia. Will continue to monitor (2) Acute exacerbation of chronic obstructive airways disease Current Visit: Yes Status: Acute Assessment and Plan: Patient has history of COPD with frequent exacerbation and hospitalization Plan as seen above (3) Essential hypertension Current Visit: No Status: Chronic Assessment and Plan: Chronic hypertension managed with home medications Continue home medication of triamterene hydrochlorothiazide Blood pressure currently stable we will continue to monitor (4) History of pulmonary embolism Current Visit: No Status: Chronic Assessment and Plan: History of pulmonary embolism Patient anticoagulated with Xarelto (5) GERD (gastroesophageal reflux disease) Current Visit: No Status: Chronic Assessment and Plan: Continue home omeprazole (6) Diastolic CHF Current Visit: No Status: Chronic Assessment and Plan: Patient has history of diastolic heart failure with preserved ejection fraction Last echocardiogram performed 02/16/18 revealed mild diastolic dysfunction with ejection fraction 50-55% Patient does not currently appear to be in exacerbation clinically Continue home dose Lasix 40 mg 3 times a day Cardiac diet ordered and we will continue to monitor (7) Healthcare-associated pneumonia Current Visit: Yes Status: Acute Assessment and Plan: Oral bacterial HCAP. Continue antibiotics He returned today with new left lower lobe consolidation likely representing of care associated pneumonia - Time Spent with Patient Total time spent is greater than 50% in coordination of care (as documented) at patient's floor/unit and/or counseling patient: Internal Medicine: Result - Labs CBC & Chem 7: 02/28/18 00:55 02/28/18 00:55 Labs: Short CBC 02/28/18 Range/Units 00:55 WBC 7.2 (4.3-11.1) K/mcL Hgb 11.1 L D (12.9-16.9) g/dL Hct 35.4 L (37.5-50.1) % Plt Count 365 (140-400) K/mcL Neutrophils # 4.8 (1.6-8.9) K/mcL BMP 02/28/18 00:55 Sodium 137 Potassium 3.5 Chloride 94 L Carbon Dioxide 32 H BUN 24 H Creatinine 0.82 Glucose 137 H Calcium 9.5 - ABG Interpretation ABG results: ABG ABG pH 7.45 pH Units (7.32-7.45) 02/28/18 10:34 ABG pCO2 50 mmHg (35-45) H 02/28/18 10:34 ABG pO2 118 mmHg (85-104) H 02/28/18 10:34 ABG O2 Saturation 99 % (95-98) H 02/28/18 10:34 Consult Discharge Plan - Plan Referrals: Marilyn Rojas, [employer]IAN [Primary Care Provider] - (5) GERD (gastroesophageal reflux disease) Qualifiers: Esophagitis presence: without esophagitis Qualified Code(s): K21.9 - Gastro- esophageal reflux disease without esophagitis (6) Diastolic CHF Qualifiers: Heart failure chronicity: chronic Qualified Code(s): I50.32 - Chronic diastolic (congestive) heart failure
[2018-03-01] MEDS: methylPREDNISolone 125 MG/2 ML VIAL IVP SCH ×2 (00:48→10:29)
[2018-03-01] MEDS: *HR* LORazepam 2 MG/ML VIAL IVP PRN (00:54)
[2018-03-01] MEDS: Piperacillin/Tazobactam 3.375 GM in 0.9 % Sodium Chloride Mini Bag 100 ML IVPB SCH (03:31)
[2018-03-01] MEDS: Ipratropium/Albuterol Neb 3 ML IH SCH ×3 (03:43→11:57)
[2018-03-01] MEDS: Budesonide/Formoterol 160/4.5 1 PUFF INH IH SCH (07:36)
[2018-03-01 08:52] VITALS: BP 120/58
[2018-03-01] MEDS: *HR* Rivaroxaban 10 MG TABLET PO SCH (10:24)
[2018-03-01] MEDS: Gabapentin 300 MG CAPSULE PO SCH (10:25)
[2018-03-01] MEDS: Furosemide 40 MG TABLET PO SCH (10:25)
[2018-03-01] MEDS: Loratadine 10 MG TABLET PO SCH (10:25)
--- NOTE | 2018-03-01 10:32 | Discharge Summary ---
Orders not resulted at time of discharge: Pending orders 03/01/18 12:00 Vancomycin,Trough Timed Date of Encounter: 03/01/18 Time of Encounter: 10:30 - Discharge Diagnosis (1) Healthcare-associated pneumonia Priority: Primary Status: Acute Assessment and Plan: 58 year old male with past medical history of asthma, CHF, COPD, HLD, HTN, PE. He presented for 3-4 days of worsening shortness of breath, yellow sputum, pleuritic type chest pain, fever and chills. He was recently admitted for same complaint on 02/17/18 and left AMA after one day because he felt better. He denies any cardiac type chest pain, abdominal pain, nausea or vomiting, syncope. He returned with new left lower lobe consolidation as seen on chest xray done in ER He was assessed with acute hypercapneic and hypoxic respiratory failure likely secondary to COPD exacerbation and likely bacterial HCAP. He was started on broad spectrum antibiotics with vanc and zosyn, and BIPAP, duonebs and steroids. He had an ABG done showing hypercapnia. He improved, and with a sooner than anticipated recovery, was discharged home on 03/01/18 to complete a course of antibiotics and steroids. He was discharged in a stable condition (2) Acute exacerbation of chronic obstructive airways disease Priority: Primary Status: Acute (3) Essential hypertension Priority: Secondary Status: Chronic (4) History of pulmonary embolism Priority: Secondary Status: Chronic (5) GERD (gastroesophageal reflux disease) Priority: Secondary Status: Chronic Qualifiers: Esophagitis presence: without esophagitis Qualified Code(s): K21.9 - Gastro -esophageal reflux disease without esophagitis (6) Diastolic CHF Priority: Secondary Status: Chronic Qualifiers: Heart failure chronicity: chronic Qualified Code(s): I50.32 - Chronic diastolic (congestive) heart failure (7) Acute and chronic respiratory failure with hypoxia Priority: Secondary Status: Acute Hospital course: Mr. Blanchard is a 58 year old male - Time Spent with Patient Total time spent providing and/or coordinating discharge services: - Discharge Medications Prescriptions: Cefdinir [Omnicef] 300 mg PO BID 5 Days #10 capsule predniSONE [PredniSONE] 40 mg PO DAILY 5 Days #10 tablet Home Medications: Docusate [Colace] 100 mg PO BID 07/25/17 [History] Oxygen 4 l NS AD 07/25/17 [History] Roflumilast [Daliresp] 500 mcg PO DAILY 07/25/17 [History] Furosemide [Lasix] 40 mg PO TID #90 tab 09/20/17 [Rx] Mometasone/Formoterol [Dulera 200 Mcg/5 Mcg Inhaler] 2 puff IH BID #1 hfa.aer.ad 09/20/17 [Rx] Rivaroxaban [Xarelto] 20 mg PO DAILY #60 tablet 09/20/17 [Rx] Omeprazole [PriLOSEC] 20 mg PO 0730 09/30/17 [History] Loratadine [Claritin] 10 mg PO DAILY #30 tablet 11/09/17 [Rx] Gabapentin [Neurontin] 300 mg PO TID 12/31/17 [History] Triamterene/HCTZ 37.5/25mg [Dyazide] 1 tab PO DAILY 12/31/17 [History] Ipratropium/Albuterol Neb [Duoneb] 3 ml IH Q4H PRN #60 inhsol 01/06/18 [Rx] Albuterol Sulfate [Albuterol Inhaler] 2 puff IH Q4H PRN #1 inhaler 01/17/18 [Rx] Albuterol Neb [Proventil Neb] 2.5 mg IH Q4HR PRN 02/16/18 [History] HYDROcodone/Acet 5/325 mg [[place] 5-325 mg] 1 tab PO Q6H PRN 02/27/18 [History] Cefdinir [Omnicef] 300 mg PO BID 5 Days #10 capsule 03/01/18 [Rx] predniSONE [PredniSONE] 40 mg PO DAILY 5 Days #10 tablet 03/01/18 [Rx] Allergies/Adverse Reactions: 3 Allergy/AdvReac Type Severity Reaction Status Date / Time levofloxacin AdvReac Blurry Verified 02/16/18 15:06 [facility] Date of admission: 02/27/18 23:52 Primary care physician: Marilyn Rojas CNP - Constitutional Vitals: Temp Pulse Resp BP Pulse Ox 98.1 F 110 19 120/58 96 03/01/18 08:48 03/01/18 08:48 03/01/18 08:48 03/01/18 08:48 03/01/18 08:48 Exam: Patient in no acute distress, alert and oriented 3 Cranial nerves II through XII intact Heart sounds significantly diminished due to chest wall expansion, regular rate and rhythm Diffuse wheeze and rhonchi auscultated, no rales, breath sounds diffusely diminished Abdomen soft and nontender with normal bowel sounds present, there is a tender reducible umbilical hernia present Bilateral lower extremities nonedematous There is a erythematous, papular, vesicular rash circumferentially around the delineation of the dorsal and plantar surface of both feet - Patient Status Disposition: Home, Self-Care Condition: Fair - Discharge Instructions Follow Up With: Marilyn Rojas CNP [Primary Care Provider] - 03/08/18 1:30 pm Forms: ED Satisfaction Letter
[2018-03-01] MEDS ORDERED: Aminoglycoside Consult 1 EACH MC ONE (12:12)
--- NOTE | 2018-03-01 16:44 | Physician Discharge Referral ---
Home Health/Hosp Referral Info Transfer to: Home Health - Diagnosis (1) Healthcare-associated pneumonia Priority: Primary Status: Acute (2) Acute exacerbation of chronic obstructive airways disease Priority: Primary Status: Acute (3) Essential hypertension Priority: Primary Status: Chronic (4) History of pulmonary embolism Priority: Primary Status: Chronic (5) GERD (gastroesophageal reflux disease) Priority: Primary Status: Chronic (6) Diastolic CHF Priority: Primary Status: Chronic (7) Acute and chronic respiratory failure with hypoxia Priority: Primary Status: Acute - Respiratory Orders Oxygen / L per min Smoking Cessation: Smoking cessation has been advised. For more information, call the [place] Tobacco Quit Line at 6-516-QYBO-NOW. - Diet/Nutrition Diet/Nutrition Orders: Cardiac - Activity Activity Orders: Ambulate - Services Needed Following services are medically necessary services: Nursing, Home Health Aide, Physical Therapy - Transfer Medications Prescriptions: Cefdinir [Omnicef] 300 mg PO BID 5 Days #10 capsule predniSONE [PredniSONE] 40 mg PO DAILY 5 Days #10 tablet Home Medications: Docusate [Colace] 100 mg PO BID 07/25/17 [History] Oxygen 4 l NS AD 07/25/17 [History] Roflumilast [Daliresp] 500 mcg PO DAILY 07/25/17 [History] Furosemide [Lasix] 40 mg PO TID #90 tab 09/20/17 [Rx] Mometasone/Formoterol [Dulera 200 Mcg/5 Mcg Inhaler] 2 puff IH BID #1 hfa.aer.ad 09/20/17 [Rx] Rivaroxaban [Xarelto] 20 mg PO DAILY #60 tablet 09/20/17 [Rx] Omeprazole [PriLOSEC] 20 mg PO 0730 09/30/17 [History] Loratadine [Claritin] 10 mg PO DAILY #30 tablet 11/09/17 [Rx] Gabapentin [Neurontin] 300 mg PO TID 12/31/17 [History] Triamterene/HCTZ 37.5/25mg [Dyazide] 1 tab PO DAILY 12/31/17 [History] Ipratropium/Albuterol Neb [Duoneb] 3 ml IH Q4H PRN #60 inhsol 01/06/18 [Rx] Albuterol Sulfate [Albuterol Inhaler] 2 puff IH Q4H PRN #1 inhaler 01/17/18 [Rx] Albuterol Neb [Proventil Neb] 2.5 mg IH Q4HR PRN 02/16/18 [History] HYDROcodone/Acet 5/325 mg [[place] 5-325 mg] 1 tab PO Q6H PRN 02/27/18 [History] Cefdinir [Omnicef] 300 mg PO BID 5 Days #10 capsule 03/01/18 [Rx] predniSONE [PredniSONE] 40 mg PO DAILY 5 Days #10 tablet 03/01/18 [Rx] Allergies/Adverse Reactions: 3 Allergy/AdvReac Type Severity Reaction Status Date / Time levofloxacin AdvReac Blurry Verified 02/16/18 15:06 [facility] Certification: Further, I certify that my clinical findings support that this patient is homebound (i.e. absences from home require considerable and taxing effort and are for medical reasons or moravian services or infrequently or short duration when for other reasons) because: Homebound Reason: Patient requires assistance of a person or device to safely leave home Attestation: My signature below is to certify that this patient is under my care and that I, or nurse practitioner, or a physician's design assistant working with me, has a face-to -face encounter with this patient.
== END 2018-03-01 12:13 | disposition home or self-care (01) | DRG 139 ==
LOC: 3BNU 16:18 → EMEROOARM 16:18 → 3BNU 20:20 → SUATTDRO 23:52
PROVIDERS: ADMIT Internal Medicine; ATTEND Student in an Organized Health Care Education/Training Program

== ENCOUNTER 2018-03-06 11:22 | Inpatient (IN) ==
[2018-03-06] MEDS ORDERED: methylPREDNISolone 125 MG/2 ML VIAL IVP ONE (11:50)
[2018-03-06] MEDS ORDERED: Ipratropium/Albuterol Neb 3 ML IH ONE (11:50)
--- NOTE | 2018-03-06 12:04 | Emergency Department Note ---
Disposition Clinical Impression: COPD exacerbation, Bronchitis Disposition: Admitted As Inpatient Referrals: Marilyn Rojas CNP [Primary Care Provider] - Forms: ED Satisfaction Letter SOB HPI - General Chief Complaint: ED Shortness of Breath/Dyspnea Stated Complaint: PHYLLIS Time Seen by Provider: 03/06/18 11:31 - History of Present Illness The 58 years old male patient is here for tightness in chest and shortness of breath since this morning. He is a chronic patient of COPD under medication, last week he was here for cough, chest pain and was under treatment for chest infection and oral prednisolne . The patient was treated in inpatient unit for COPD exacerbation and was supposed to follow up with PCP today .He is taking Omnicef and prednidsone for a few days , but he got trouble breathing and tightness in center chest since this morning that is why he is here for further management.He further states that his oxygen level dropped to below 80% with 4L oxygen. The chest pain 4-5/10 , localized to center of lower chest. He has SOB that aggravates with exertion. He admits mild cough, fatigue . He denied fever, sore throat,palpitation, calf swelling, recent travel,nausea- vomiting, sputum production, trauma, rash, syncope, palpitation, bluish discoloration, Pt Subjective Complaint: shortness of breath, cough, pain with inspiration, chest pain Onset (ago): day(s) Context: occurred during exertion Severity: moderate Consistency/Duration: constant Improves with: oxygen Worsens with: lying flat, exertion Known history of: COPD Associated symptoms: Reports: chest pain, cough. Denies: fever, orthopnea, lower extremity pain, parasthesias, palpitations, hemoptysis, nausea/vomiting, syncope, abdominal pain, rash Treatment prior to arrival: bronchodilator Cough Frequency: Intermittent Sputum production: Yes Sputum Amount: Scant Sputum Color: White - Related Data Home Medications Medication Instructions Recorded Confirmed Oxygen 4 l NS AD 07/25/17 03/06/18 Roflumilast [Daliresp] 500 mcg PO DAILY 07/25/17 03/06/18 Omeprazole [PriLOSEC] 20 mg PO 0730 09/30/17 03/06/18 Gabapentin [Neurontin] 300 mg PO TID 12/31/17 03/06/18 Triamterene/HCTZ 37.5/25mg 1 tab PO DAILY 12/31/17 03/06/18 [Dyazide] Albuterol Neb [Proventil Neb] 2.5 mg IH Q4HR PRN 02/16/18 03/06/18 HYDROcodone/Acet 5/325 mg [[place] 1 tab PO Q6H PRN 02/27/18 03/06/18 5-325 mg] Previous Rx's Medication Instructions Recorded Furosemide [Lasix] 40 mg PO TID #90 tab 09/20/17 Mometasone/Formoterol [Dulera 200 2 puff IH BID #1 hfa.aer.ad 09/20/17 Mcg/5 Mcg Inhaler] Loratadine [Claritin] 10 mg PO DAILY #30 tablet 11/09/17 Ipratropium/Albuterol Neb [Duoneb] 3 ml IH Q4H PRN #60 inhsol 01/06/18 Albuterol Sulfate [Albuterol 2 puff IH Q4H PRN #1 inhaler 01/17/18 Inhaler] Cefdinir [Omnicef] 300 mg PO BID 5 Days #10 capsule 03/01/18 predniSONE [PredniSONE] 40 mg PO DAILY 5 Days #10 tablet 03/01/18 Allergies Allergy/AdvReac Type Severity Reaction Status Date / Time levofloxacin AdvReac Blurry Verified 03/06/18 11:33 [facility] All systems ED: reviewed and negative except as stated. Review of Systems: As Per HPI Constitutional: Reports: as per HPI. Denies: fever, chills, weakness Eyes: Reports: as per HPI. Denies: eye pain ENT ED: Reports: as per HPI. Denies: ear pain, throat pain Cardiovascular: Reports: as per HPI, chest pain, dyspnea on exertion. Denies: palpitations, orthopnea, edema, syncope, paroxysmal nocturnal dyspnea Respiratory: Reports: as per HPI, cough, dyspnea. Denies: wheezes, hemoptysis Gastrointestinal: Reports: as per HPI. Denies: abdominal pain, nausea, vomiting Genitourinary: Reports: as per HPI. Denies: urgency, dysuria Musculoskeletal: Reports: as per HPI. Denies: back pain, neck pain Integumentary: Reports: as per HPI. Denies: rash, abrasion Neurological: Reports: as per HPI. Denies: headache, weakness Psychiatric: Reports: as per HPI. Denies: anxiety, depression Endocrine: Reports: as per HPI. Denies: fatigue, heat or cold intolerance Hematological/Lymphatic: Reports: as per HPI. Denies: easy bruising Allergic/Immunologic: Reports: as per HPI. Denies: facial swelling Past Medical History - Past Medical History Medical history: Reports: asthma, CHF, COPD, hyperlipidemia, hypertension, pulmonary embolus Surgical history: Reports: no surgical history Psychiatric history: Reports: anxiety, depression - Social History Smoking Status: Former smoker Smokeless Tobacco Status: No Alcohol use: Reports: rarely Drug use: Reports: none Physical Exam - General Limitations: no limitations General appearance: alert, in no apparent distress - Head Head exam: atraumatic - Eye Eye exam: Present: normal appearance, PERRL, EOMI - ENT ENT exam: normal exam, mucous membranes moist - Neck Neck exam: Present: normal inspection - Chest Chest inspection: Present: normal inspection, symmetric chest wall rise - Respiratory Respiratory exam: Present: wheezes, prolonged expiratory phase, other ( occasionall creps in LLZ ( infra-axillary and left subscapular)). Absent: respiratory distress, stridor, accessory muscle use - Cardiovascular Cardiovascular exam: Present: regular rate, normal rhythm, normal heart sounds, +S1, +S2. Absent: bradycardia, tachycardia, systolic murmur - Abdominal Exam Abdominal exam: Present: soft, Non-Tender, normal bowel sounds. Absent: tenderness, distention, guarding - Extremities Exam Extremities exam: Present: normal inspection, full ROM. Absent: pedal edema, joint swelling, calf tenderness - Expanded Lower Extremity Exam Neurovascular/Tendon exam: Absent: motor deficit, sensory deficit - Back Exam Back exam: Absent: CVA tenderness (R), CVA tenderness (L), muscle spasm - Neurological Exam Neurological exam: Present: alert, oriented X3 - Psychiatric Psychiatric exam: Present: normal affect, normal mood. Absent: depressed, agitated - Skin Skin exam: Present: warm, normal color Course Course Narrative: The patient is a chronic case of COPD under treatment, He was here couple of days back for chest pain/ cough and he is taking oral prednisone and antibiotics . He is here second time as he has had trouble breathing, chhest tightness since this morning. So we planned to work up for cardiac origin of chest pain and other infective pathology His xray chest: Normal and EKG : Normal Vital Signs Temperature 97.7 F 10/16/18 11:24 Pulse Rate 102 03/06/18 11:24 Respiratory Rate 32 03/06/18 11:24 Blood Pressure 138/81 03/06/18 11:24 O2 Sat by Pulse Oximetry 93 03/06/18 11:24 Temperature 97.7 F 03/06/18 12:25 Pulse Rate 92 03/06/18 12:30 Respiratory Rate 20 03/06/18 12:30 Blood Pressure 124/70 03/06/18 12:30 O2 Sat by Pulse Oximetry 96 03/06/18 12:30 Oxygen Delivery Oxygen Delivery Nasal Cannula Shortness of Breath/Dyspnea - Lab Data Result diagrams: 03/06/18 11:51 03/06/18 11:51 Lab Results 03/06/18 03/06/18 03/06/18 Range/Units 11:51 11:51 11:51 WBC (4.3-11.1) K/mcL RBC (4.19-5.50) M/mcL Hgb (12.9-16.9) g/dL Hct (37.5-50.1) % MCV (83.0-100.0) fL MCH (28.0-33.3) pg MCHC (31.6-35.5) g/dL RDW (11.5-14.5) % Plt Count (140-400) K/mcL MPV (9.4-12.4) fL Immature Gran % (0-4) % Seg Neutrophils % % Lymphocytes % % Monocytes % % Eosinophils % % Basophils % % Neutrophils # (1.6-8.9) K/mcL Lymphocytes # (0.6-4.6) K/mcL Monocytes # (0.0-1.3) K/mcL Eosinophils # (0.0-0.6) K/mcL Basophils # (0.0-0.2) K/mcL PT 20.4 H (9.4-12.1) Seconds INR 1.8 APTT 41.4 H (26.0-36.0) Seconds Sodium (136-145) mEq/L Potassium (3.5-5.1) mEq/L Chloride (98-107) mEq/L Carbon Dioxide (23-29) mEq/L BUN (6-20) mg/dL Creatinine (0.70-1.30) mg/dL Est GFR ( Amer) (> 60) Est GFR (Non-Af Amer) (> 60) BUN/Creatinine Ratio (6-26) Glucose (70-105) mg/dL Calculated Osmolality (280-300) Calcium (8.6-10.3) mg/dL Total Bilirubin 0.3 (0.3-1.0) mg/dL Direct Bilirubin 0.0 (0.0-0.2) mg/dL Indirect Bilirubin 0.3 (0.0-1.2) mg/dL AST 12 L (13-39) Units/L ALT 14 (7-52) Units/L Alkaline Phosphatase 75 (34-104) Units/L Troponin I (< 0.04) ng/mL B-Natriuretic Peptide 31 (Less than 100) pg/mL Serum Total Protein 6.6 (6.4-8.9) g/dL Albumin 3.9 (3.5-5.7) g/dL Globulin 2.7 (2.4-3.5) g/dL Albumin/Globulin Ratio 1.4 (1.1-2.2) Lipase 15 (11-82) Units/L 03/06/18 03/06/18 Range/Units 11:51 11:51 WBC 9.1 (4.3-11.1) K/mcL RBC 4.13 L (4.19-5.50) M/mcL Hgb 11.2 L (12.9-16.9) g/dL Hct 35.4 L (37.5-50.1) % MCV 85.7 (83.0-100.0) fL MCH 27.1 L (28.0-33.3) pg MCHC 31.6 (31.6-35.5) g/dL RDW 14.8 H (11.5-14.5) % Plt Count 336 (140-400) K/mcL MPV 10.1 (9.4-12.4) fL Immature Gran % 0.2 (0-4) % Seg Neutrophils % 71.3 % Lymphocytes % 20.9 % Monocytes % 4.5 % Eosinophils % 2.6 % Basophils % 0.5 % Neutrophils # 6.5 (1.6-8.9) K/mcL Lymphocytes # 1.9 (0.6-4.6) K/mcL Monocytes # 0.4 (0.0-1.3) K/mcL Eosinophils # 0.2 (0.0-0.6) K/mcL Basophils # 0.1 (0.0-0.2) K/mcL PT (9.4-12.1) Seconds INR APTT (26.0-36.0) Seconds Sodium 138 (136-145) mEq/L Potassium 3.3 L (3.5-5.1) mEq/L Chloride 97 L (98-107) mEq/L Carbon Dioxide 31 H (23-29) mEq/L BUN 18 (6-20) mg/dL Creatinine 0.62 L (0.70-1.30) mg/dL Est GFR ( Amer) > 60 (> 60) Est GFR (Non-Af Amer) > 60 (> 60) BUN/Creatinine Ratio 29 H (6-26) Glucose 123 H (70-105) mg/dL Calculated Osmolality 289 (280-300) Calcium 9.8 (8.6-10.3) mg/dL Total Bilirubin (0.3-1.0) mg/dL Direct Bilirubin (0.0-0.2) mg/dL Indirect Bilirubin (0.0-1.2) mg/dL AST (13-39) Units/L ALT (7-52) Units/L Alkaline Phosphatase (34-104) Units/L Troponin I < 0.03 (< 0.04) ng/mL B-Natriuretic Peptide (Less than 100) pg/mL Serum Total Protein (6.4-8.9) g/dL Albumin (3.5-5.7) g/dL Globulin (2.4-3.5) g/dL Albumin/Globulin Ratio (1.1-2.2) Lipase (11-82) Units/L
[2018-03-06 12:17] LABS: Basophils # 0.1 K/mcL (0.0-0.2); Basophils % 0.5 %; Eosinophils # 0.2 K/mcL (0.0-0.6); Eosinophils % 2.6 %; Hematocrit 35.4 % (37.5-50.1); Hemoglobin 11.2 g/dL (12.9-16.9); Immature Granulocytes % 0.2 % (0-4); Lymphocytes # 1.9 K/mcL (0.6-4.6); Lymphocytes % 20.9 %; Mean Corpuscular HGB Conc 31.6 g/dL (31.6-35.5); Mean Corpuscular Hemoglobin 27.1 pg (28.0-33.3); Mean Corpuscular Volume 85.7 fL (83.0-100.0); Mean Platelet Volume 10.1 fL (9.4-12.4); Monocytes # 0.4 K/mcL (0.0-1.3); Monocytes % 4.5 %; Neutrophils # 6.5 K/mcL (1.6-8.9); Platelet Count 336 K/mcL (140-400); Red Blood Count 4.13 M/mcL (4.19-5.50); Red Cell Distribution Width 14.8 % (11.5-14.5); Segmented Neutrophils % 71.3 %
[2018-03-06] MEDS ORDERED: Piperacillin/Tazobactam 3.375 GM in 0.9 % Sodium Chloride Mini Bag 100 ML IVPB ONE (12:17)
--- NOTE | 2018-03-06 12:21 | Emergency Department Note ---
Disposition Clinical Impression: COPD exacerbation, Bronchitis Disposition: Admitted As Inpatient Condition: Good Referrals: Marilyn Rojas HOUSE WIRER HELPER [Primary Care Provider] - Forms: ED Satisfaction Letter Time of Disposition: 13:05 General Adult HPI - General Chief complaint: ED Shortness of Breath/Dyspnea Stated complaint: PHYLLIS Time Seen by Provider: 03/06/18 11:31 Limitations: no limitations - History of Present Illness Pain Scale: 0 - Related Data Home Medications Medication Instructions Recorded Confirmed Oxygen 4 l NS AD 07/25/17 03/06/18 Roflumilast [Daliresp] 500 mcg PO DAILY 07/25/17 03/06/18 Omeprazole [PriLOSEC] 20 mg PO 0730 09/30/17 03/06/18 Gabapentin [Neurontin] 300 mg PO TID 12/31/17 03/06/18 Triamterene/HCTZ 37.5/25mg 1 tab PO DAILY 12/31/17 03/06/18 [Dyazide] Albuterol Neb [Proventil Neb] 2.5 mg IH Q4HR PRN 02/16/18 03/06/18 HYDROcodone/Acet 5/325 mg [[place] 1 tab PO Q6H PRN 02/27/18 03/06/18 5-325 mg] Previous Rx's Medication Instructions Recorded Furosemide [Lasix] 40 mg PO TID #90 tab 09/20/17 Mometasone/Formoterol [Dulera 200 2 puff IH BID #1 hfa.aer.ad 09/20/17 Mcg/5 Mcg Inhaler] Loratadine [Claritin] 10 mg PO DAILY #30 tablet 11/09/17 Ipratropium/Albuterol Neb [Duoneb] 3 ml IH Q4H PRN #60 inhsol 01/06/18 Albuterol Sulfate [Albuterol 2 puff IH Q4H PRN #1 inhaler 01/17/18 Inhaler] Cefdinir [Omnicef] 300 mg PO BID 5 Days #10 capsule 03/01/18 predniSONE [PredniSONE] 40 mg PO DAILY 5 Days #10 tablet 03/01/18 Allergies Allergy/AdvReac Type Severity Reaction Status Date / Time levofloxacin AdvReac Blurry Verified 03/06/18 11:33 Vision Constitutional: Reports: as per HPI. Denies: fever, chills, weakness Eyes: Reports: as per HPI. Denies: eye pain ENT ED: Reports: as per HPI. Denies: ear pain, throat pain Cardiovascular: Reports: as per HPI, chest pain, dyspnea on exertion. Denies: palpitations, orthopnea, edema, syncope, paroxysmal nocturnal dyspnea Respiratory: Reports: as per HPI, cough, dyspnea. Denies: wheezes, hemoptysis Gastrointestinal: Reports: as per HPI. Denies: abdominal pain, nausea, vomiting Genitourinary: Reports: as per HPI. Denies: urgency, dysuria Musculoskeletal: Reports: as per HPI. Denies: back pain, neck pain Integumentary: Reports: as per HPI. Denies: rash, abrasion Neurological: Reports: as per HPI. Denies: headache, weakness Psychiatric: Reports: as per HPI. Denies: anxiety, depression Endocrine: Reports: as per HPI. Denies: fatigue, heat or cold intolerance Hematological/Lymphatic: Reports: as per HPI. Denies: easy bruising Allergic/Immunologic: Reports: as per HPI. Denies: facial swelling Past Medical History - Past Medical History Medical history: Reports: asthma, CHF, COPD, hyperlipidemia, hypertension, pulmonary embolus Surgical history: Reports: no surgical history Psychiatric history: Reports: anxiety, depression - Social History Smoking Status: Former smoker Smokeless Tobacco Status: No Alcohol use: Reports: rarely Drug use: Reports: none Physical Exam - General Limitations: no limitations General appearance: alert, in no apparent distress Course - Consultations Consultation #1: discussed case with hospitalist and he has accepted patient for admission. Time: 13:05 Vital Signs Temperature 97.7 F 03/06/18 11:24 Pulse Rate 102 03/06/18 11:24 Respiratory Rate 32 03/06/18 11:24 Blood Pressure 138/81 03/06/18 11:24 O2 Sat by Pulse Oximetry 93 03/06/18 11:24 Temperature 97.7 F 03/06/18 12:25 Pulse Rate 92 03/06/18 12:30 Respiratory Rate 20 03/06/18 12:30 Blood Pressure 124/70 03/06/18 12:30 O2 Sat by Pulse Oximetry 96 03/06/18 12:30 Oxygen Delivery Oxygen Delivery Nasal Cannula Medical Decision Making - Lab Data Result diagrams: 03/06/18 11:51 03/06/18 11:51 Lab Results 03/06/18 03/06/18 03/06/18 Range/Units 11:51 11:51 11:51 WBC (4.3-11.1) K/mcL RBC (4.19-5.50) M/mcL Hgb (12.9-16.9) g/dL Hct (37.5-50.1) % MCV (83.0-100.0) fL MCH (28.0-33.3) pg MCHC (31.6-35.5) g/dL RDW (11.5-14.5) % Plt Count (140-400) K/mcL MPV (9.4-12.4) fL Immature Gran % (0-4) % Seg Neutrophils % % Lymphocytes % % Monocytes % % Eosinophils % % Basophils % % Neutrophils # (1.6-8.9) K/mcL Lymphocytes # (0.6-4.6) K/mcL Monocytes # (0.0-1.3) K/mcL Eosinophils # (0.0-0.6) K/mcL Basophils # (0.0-0.2) K/mcL PT 20.4 H (9.4-12.1) Seconds INR 1.8 APTT 41.4 H (26.0-36.0) Seconds Sodium (136-145) mEq/L Potassium (3.5-5.1) mEq/L Chloride (98-107) mEq/L Carbon Dioxide (23-29) mEq/L BUN (6-20) mg/dL Creatinine (0.70-1.30) mg/dL Est GFR ( Amer) (> 60) Est GFR (Non-Af Amer) (> 60) BUN/Creatinine Ratio (6-26) Glucose (70-105) mg/dL Calculated Osmolality (280-300) Calcium (8.6-10.3) mg/dL Total Bilirubin 0.3 (0.3-1.0) mg/dL Direct Bilirubin 0.0 (0.0-0.2) mg/dL Indirect Bilirubin 0.3 (0.0-1.2) mg/dL AST 12 L (13-39) Units/L ALT 14 (7-52) Units/L Alkaline Phosphatase 75 (34-104) Units/L Troponin I (< 0.04) ng/mL B-Natriuretic Peptide 31 (Less than 100) pg/mL Serum Total Protein 6.6 (6.4-8.9) g/dL Albumin 3.9 (3.5-5.7) g/dL Globulin 2.7 (2.4-3.5) g/dL Albumin/Globulin Ratio 1.4 (1.1-2.2) Lipase 15 (11-82) Units/L 03/06/18 03/06/18 Range/Units 11:51 11:51 WBC 9.1 (4.3-11.1) K/mcL RBC 4.13 L (4.19-5.50) M/mcL Hgb 11.2 L (12.9-16.9) g/dL Hct 35.4 L (37.5-50.1) % MCV 85.7 (83.0-100.0) fL MCH 27.1 L (28.0-33.3) pg MCHC 31.6 (31.6-35.5) g/dL RDW 14.8 H (11.5-14.5) % Plt Count 336 (140-400) K/mcL MPV 10.1 (9.4-12.4) fL Immature Gran % 0.2 (0-4) % Seg Neutrophils % 71.3 % Lymphocytes % 20.9 % Monocytes % 4.5 % Eosinophils % 2.6 % Basophils % 0.5 % Neutrophils # 6.5 (1.6-8.9) K/mcL Lymphocytes # 1.9 (0.6-4.6) K/mcL Monocytes # 0.4 (0.0-1.3) K/mcL Eosinophils # 0.2 (0.0-0.6) K/mcL Basophils # 0.1 (0.0-0.2) K/mcL PT (9.4-12.1) Seconds INR APTT (26.0-36.0) Seconds Sodium 138 (136-145) mEq/L Potassium 3.3 L (3.5-5.1) mEq/L Chloride 97 L (98-107) mEq/L Carbon Dioxide 31 H (23-29) mEq/L BUN 18 (6-20) mg/dL Creatinine 0.62 L (0.70-1.30) mg/dL Est GFR ( Amer) > 60 (> 60) Est GFR (Non-Af Amer) > 60 (> 60) BUN/Creatinine Ratio 29 H (6-26) Glucose 123 H (70-105) mg/dL Calculated Osmolality 289 (280-300) Calcium 9.8 (8.6-10.3) mg/dL Total Bilirubin (0.3-1.0) mg/dL Direct Bilirubin (0.0-0.2) mg/dL Indirect Bilirubin (0.0-1.2) mg/dL AST (13-39) Units/L ALT (7-52) Units/L Alkaline Phosphatase (34-104) Units/L Troponin I < 0.03 (< 0.04) ng/mL B-Natriuretic Peptide (Less than 100) pg/mL Serum Total Protein (6.4-8.9) g/dL Albumin (3.5-5.7) g/dL Globulin (2.4-3.5) g/dL Albumin/Globulin Ratio (1.1-2.2) Lipase (11-82) Units/L Attestation Statement - Attestation Attestation: I examined this patient and my medical decision-making was reviewed with the Resident Physician. I agree with the documented findings, disposition and treatment plan as described except to the extent set forth below. 58 year old male presents to the ED with complaints of COPD excerbation and typically wers 4LNC at all time at home and has been requring more recenty and has increased it to 5LNC and states that when he exerts himself at home even walking ot the bathroom from his bedroom which is about 10 feet away he will dorp to 86% and has been as low as 72% on 4LNc over the past few days. He most recently was being treated for his COPD bronchitis with onincef and is not improving. Laurent does not have pneumonia on chest xray although I do believe there is a component of bronchitis and hypoxia secondary to his COPDE and will likley need to be admitted to medicine. no chest pain or diaphoresis
[2018-03-06 12:22] LABS: INR 1.8; Prothrombin Time 20.4 Seconds (9.4-12.1)
[2018-03-06 12:25] LABS: Activated Partial Thrombo Time 41.4 Seconds (26.0-36.0)
[2018-03-06 12:40] LABS: Troponin I < 0.03 ng/mL (< 0.04)
[2018-03-06 12:50] LABS: Albumin 3.9 g/dL (3.5-5.7); Albumin/Globulin Ratio 1.4 (1.1-2.2); Bilirubin,Indirect 0.3 mg/dL (0.0-1.2); Bilirubin,Total 0.3 mg/dL (0.3-1.0); Globulin 2.7 g/dL (2.4-3.5); Total Protein 6.6 g/dL (6.4-8.9)
[2018-03-06 12:51] LABS: BUN/Creatinine Ratio 29 (6-26); Blood Urea Nitrogen 18 mg/dL (6-20); Calcium 9.8 mg/dL (8.6-10.3); Carbon Dioxide 31 mEq/L (23-29); Chloride 97 mEq/L (98-107); Glucose 123 mg/dL (70-105); Osmolality,Calculated 289 (280-300); Potassium 3.3 mEq/L (3.5-5.1); Sodium 138 mEq/L (136-145); eGFR For Non-African Americans > 60 (> 60)
[2018-03-06] MEDS ORDERED: Naloxone 0.4 MG/ML INJ IVP PRN (14:23)
[2018-03-06] MEDS ORDERED: Albuterol 2.5 MG/3 ML NEBULIZER IH PRN (14:24)
[2018-03-06] MEDS ORDERED: *HR* HYDROcodone/Acet 5/325 mg TABLET PO PRN (14:24)
--- NOTE | 2018-03-06 14:40 | Internal Med History&Physical ---
Date of Encounter: 03/06/18 Time of Encounter: 14:00 Internal Medicine - H&P: HPI Chief complaint: Shortness of breath and chest tightness Admitted From: Emergency Dept History of present illness: Mr. Blanchard is a 58 year old male patient with a history of hypertension, hyperlipidemia, CHF, COPD, chronic respiratory failure on 3-4 L O2 supplementation asthma, prior PE who presented to the ER with complaints of shortness of breath. Patient states that symptoms began this morning. He woke up feeling fine but then began to develop acute onset shortness of breath and chest tightness. He had just been discharged from the hospital last week following hospitalization for healthcare associated pneumonia and COPD exacerbation. He was discharged on oral antibiotics and steroid taper. He denies any fevers or chills. He does have cough but nonproductive. He was wheezing a lot and tried nebulizer treatment but it did not improve his symptoms. As such she came to the ER. He reported that his O2 sats were in the 70s to 80s on 4 L. He does have exertional dyspnea. Denies any orthopnea. No PND. Past Med Surg Social Fam HX - Past Medical History Attestation: Yes The following information was validated with the patient. Source: patient Medical history: CHF, COPD, hyperlipidemia, hypertension, pulmonary embolus Psychiatric history: anxiety, depression - Past Surgical History Surgical History: no surgical history - Social History Smoking Status: Former smoker Smokeless Tobacco Status: No Alcohol use: rarely Drug use: none - Family History Father Living Status: Hx Family Cancer: Yes Mother Living Status: Hx Family Cancer: Yes Internal Medicine - H&P: Meds Oxygen 4 l NS AD 07/25/17 [History] Roflumilast [Daliresp] 500 mcg PO DAILY 07/25/17 [History] Furosemide [Lasix] 40 mg PO TID #90 tab 09/20/17 [Rx] Mometasone/Formoterol [Dulera 200 Mcg/5 Mcg Inhaler] 2 puff IH BID #1 hfa.aer.ad 09/20/17 [Rx] Omeprazole [PriLOSEC] 20 mg PO 0730 09/30/17 [History] Loratadine [Claritin] 10 mg PO DAILY #30 tablet 11/09/17 [Rx] Gabapentin [Neurontin] 300 mg PO TID 12/31/17 [History] Triamterene/HCTZ 37.5/25mg [Dyazide] 1 tab PO DAILY 12/31/17 [History] Ipratropium/Albuterol Neb [Duoneb] 3 ml IH Q4H PRN #60 inhsol 01/06/18 [Rx] Albuterol Sulfate [Albuterol Inhaler] 2 puff IH Q4H PRN #1 inhaler 01/17/18 [Rx] Albuterol Neb [Proventil Neb] 2.5 mg IH Q4HR PRN 02/16/18 [History] HYDROcodone/Acet 5/325 mg [[place] 5-325 mg] 1 tab PO Q6H PRN 02/27/18 [History] Cefdinir [Omnicef] 300 mg PO BID 5 Days #10 capsule 03/01/18 [Rx] predniSONE [PredniSONE] 40 mg PO DAILY 5 Days #10 tablet 03/01/18 [Rx] 3 Allergy/AdvReac Type Severity Reaction Status Date / Time levofloxacin AdvReac Blurry Verified 03/06/18 11:33 [facility] [employer] Systems PM: A 10-system review of systems was performed and is negative for pertinent findings except as documented above in the HPI. - Constitutional Constitutional: malaise, no chills, no fever(s), no night sweats - EENT Eyes: no change in vision, no discharge, no pain, no photophobia Ears: no ear discharge, no ear pain, no tinnitus Nose, mouth and throat: no dysphagia, no nasal discharge, no neck pain, no sore throat - Cardiovascular Cardiovascular ROS IM: chest pain, no diaphoresis, no dyspnea, no lightheadedness, no palpitations, no syncope - Respiratory Respiratory: cough, dyspnea, dyspnea on exertion, wheezing, no excessive phlegm production - Gastrointestinal Gastrointestinal: no abdominal pain, no diarrhea, no hematemesis, no hematochezia, no melena, no nausea, no vomiting - Musculoskeletal Musculoskeletal ROS IM: no numbness, no tingling - Integumentary Integumentary IM: no rash, no unusual bruising - Neurological Neurological ROS: no confusion, no convulsions, no focal weakness, no numbness, no tingling, no tremor(s) - Hematologic/Lymphatic Hematologic/Lymphatic: no easy bruising - Constitutional Vitals: Temp Pulse Resp BP Pulse Ox 98.1 F 75 16 125/83 95 03/06/18 14:11 03/06/18 14:11 03/06/18 14:11 03/06/18 14:11 03/06/18 14:11 General appearance: Present: cooperative, mild distress, A&O X 3, pleasant, obese, answers questions appropriately Exam: . - Eye Eye exam: Present: EOMI, PERRL - ENT ENT exam: Present: mucous membranes moist - Neck Neck exam general surgery: Present: supple, trachea midline. Absent: lymphadenopathy - Respiratory Respiratory exam: Present: prolonged expiratory phase, rhonchi, wheezes. Absent : accessory muscle use, rales - Cardiovascular Cardiovascular exam: Present: RRR, +S1, +S2. Absent: diastolic murmur, gallop, rubs, systolic murmur - GI/Abdominal GI/Abdominal exam: Present: normal bowel sounds, soft, no peritoneal signs. Absent: distended, tenderness - Extremities Exam Extremities exam: Present: warm, radial pulses palpable and symmetrical. Absent : calf tenderness, cyanotic, pedal edema - Neurological Exam Neurological exam: Present: CN II-XII intact, oriented X3, no focal deficits. Absent: facial droop, speech deficit - Skin Skin exam: Present: dry, intact Internal Med - H&P Results - Labs CBC & Chem 7: 03/06/18 11:51 03/06/18 11:51 - Impressions Impressions Chest X-Ray 03/06/18 11:31 IMPRESSION: Stable exam without acute focal process. D/ / Bryant Pace MD / Bryant Pace MD Interpreting Provider: Bryant Pace MD - Assessment and plan (1) Acute and chronic respiratory failure with hypoxia Current Visit: Yes Status: Acute Assessment and plan: Patient reported hypoxia at home. His sats have improved since coming to the ER. Will continue O2 supplementation. Continue treat underlying COPD. (2) Chest tightness Current Visit: Yes Status: Acute Assessment and plan: Patient describes chest tightness that is intermittent and associated with deep breaths. Could be related to recent episode of pneumonia and COPD exacerbation. We will trend troponins. Patient had recent echocardiogram which showed EF of 50-55% with mild left ventricular diastolic dysfunction. (3) COPD exacerbation Current Visit: Yes Status: Acute Assessment and plan: Patient presenting with COPD exacerbation. Recurrent episodes. Will check respiratory infection panel. Continue treatment for COPD with bronchodilators, systemic steroids. Patient has completed recent antibiotic course. He is not having any productive sputum. No indication for further antibiotics at this time. Chest x-ray does not show any pneumonia. (4) Diastolic CHF Current Visit: Yes Status: Chronic Assessment and plan: Patient does have dyspnea on exertion. Mild lower extremity edema. We will treat him with intravenous Lasix today. Transition to oral Lasix tomorrow. Qualifiers: Heart failure chronicity: chronic Qualified Code(s): I50.32 - Chronic diastolic (congestive) heart failure (5) Essential hypertension Current Visit: Yes Status: Chronic Assessment and plan: Resume home medications. Currently blood pressure is well controlled. (6) Pulmonary embolism Current Visit: Yes Status: Chronic Assessment and plan: Patient was on Xarelto. It is currently not listed in his medications. We will clarify this and resume Xarelto after confirmation. Qualifiers: Pulmonary embolism type: other Chronicity: chronic Acute cor pulmonale presence: without acute cor pulmonale Qualified Code(s): I27.82 - Chronic pulmonary embolism - Time Spent With Patient Total time spent is greater than 50% in coordination of care (as documented) at patient's floor/unit and/or counseling patient:
[2018-03-06] MEDS: Budesonide/Formoterol 160/4.5 1 PUFF INH IH SCH ×2 (14:51→19:33)
[2018-03-06] MEDS ORDERED: Furosemide 20 MG TABLET PO SCH (15:00)
[2018-03-06] MEDS ORDERED: Isovue-370 500 ML INFUS..BTL IV ONE (15:04)
[2018-03-06] MEDS: Ipratropium/Albuterol Neb 3 ML IH SCH ×2 (15:59→19:33)
[2018-03-06] MEDS ORDERED: Furosemide 40 MG TABLET PO SCH (17:00)
[2018-03-06] MEDS: methylPREDNISolone 125 MG/2 ML VIAL IVP SCH (17:37)
[2018-03-06] MEDS: *HR* Rivaroxaban 10 MG TABLET PO SCH (17:37)
[2018-03-06] MEDS: Furosemide 40 MG/4 ML VIAL IVP SCH (17:37)
[2018-03-06] MEDS: Gabapentin 300 MG CAPSULE PO SCH ×2 (17:37→20:20)
[2018-03-07] MEDS: Ipratropium/Albuterol Neb 3 ML IH SCH ×7 (00:04→23:42)
[2018-03-07] MEDS: methylPREDNISolone 125 MG/2 ML VIAL IVP SCH ×3 (00:36→16:15)
[2018-03-07 05:09] LABS: Basophils % 0.1 %; Hematocrit 34.6 % (37.5-50.1); Hemoglobin 10.9 g/dL (12.9-16.9); Immature Granulocytes % 0.3 % (0-4); Lymphocytes # 0.9 K/mcL (0.6-4.6); Lymphocytes % 12.9 %; Mean Corpuscular HGB Conc 31.5 g/dL (31.6-35.5); Mean Corpuscular Volume 85.9 fL (83.0-100.0); Mean Platelet Volume 9.9 fL (9.4-12.4); Monocytes # 0.1 K/mcL (0.0-1.3); Monocytes % 0.7 %; Neutrophils # 5.8 K/mcL (1.6-8.9); Platelet Count 344 K/mcL (140-400); Red Blood Count 4.03 M/mcL (4.19-5.50); Red Cell Distribution Width 14.6 % (11.5-14.5)
[2018-03-07 05:28] LABS: BUN/Creatinine Ratio 30 (6-26); Blood Urea Nitrogen 18 mg/dL (6-20); Calcium 9.3 mg/dL (8.6-10.3); Carbon Dioxide 31 mEq/L (23-29); Chloride 96 mEq/L (98-107); Glucose 140 mg/dL (70-105); Osmolality,Calculated 286 (280-300); Potassium 4.1 mEq/L (3.5-5.1); Sodium 136 mEq/L (136-145); eGFR For Non-African Americans > 60 (> 60)
--- NOTE | 2018-03-07 07:37 | Electrocardiograph Report ---
[facility] [employer] Test Date: 2018-03-06 Pat Name: Jason Blanchard Department: EXAM2 Room: [facility] Gender: M Travel Physical Therapist: : 1960 Requested By: Genesis Mcgovern Order Number: [id number] Reading MD: Baudilio Lincoln Measurements Intervals [place] Rate: 95 P: 62 AK: 159 QRS: 1 QRSD: 93 T: 45 QT: 376 QTc: 473 Interpretive Statements Sinus rhythm Electronically Signed On 03-07-2018 7:35:05 EDT by Baudilio Lincoln
[2018-03-07] MEDS: Budesonide/Formoterol 160/4.5 1 PUFF INH IH SCH ×2 (07:42→19:43)
[2018-03-07] MEDS: Furosemide 40 MG/4 ML VIAL IVP SCH (08:25)
[2018-03-07] MEDS: Gabapentin 300 MG CAPSULE PO SCH ×3 (08:26→21:46)
[2018-03-07] MEDS ORDERED: Loratadine 10 MG TABLET PO SCH (09:00)
--- NOTE | 2018-03-07 11:42 | Internal Med Progress Note ---
Hospitalist Progress Note - Encounter Date of Encounter: 03/07/18 Time of Encounter: 09:50 - Subjective Interval History: Patient states that he feels better and wishes to go home. However, when I was interviewing him, he had pursed lips and was slightly tachypneic. Explained to him that he did not look well enough to be discharged home. He reports that his friend door had been opened and he was concerned about a break-in. I discussed with him that he needs to be treated for his COPD and he has had multiple heart hospitalizations here and at this time he is not stable for discharge. He denies any chest pain, fevers or palpitations. Does have cough that is nonproductive. - Exam Vitals: Temp Pulse Resp BP Pulse Ox 97.2 F L 84 18 132/60 96 03/07/18 10:44 03/07/18 10:44 03/07/18 11:06 03/07/18 10:44 03/07/18 11:06 Exam: General: Patient is alert, no acute distress, oriented x 3 Respiratory: Shallow depth. Pursed lips, mild tachypnea Mild bilateral wheezing. Cardiovascular: Regular rate and rhythm. s1 and s2 normal No clicks, rubs, gallops, or murmurs. No pedal edema Abdomen: Abdomen is soft, nontender. Bowel sounds are present Musculoskeletal: Spontaneously moving all extremities Skin: warm, dry, intact. Neuro: Alert oriented x 3 normal cranial nerves, no focal deficits - Assessment and Plan (1) Acute and chronic respiratory failure with hypoxia Current Visit: Yes Status: Acute Assessment and Plan: Continue O2 supplementation. Wean as tolerated. Treat underlying COPD. CT of the chest done yesterday showed tracheomalacia, emphysema which is contributing to his symptoms of hypoxia and shortness of breath. Needs follow-up with pulmonology as outpatient. (2) COPD exacerbation Current Visit: Yes Status: Acute Assessment and Plan: Continue bronchodilators and systemic steroids. Will transition to oral steroids tomorrow. (3) Chest tightness Current Visit: Yes Status: Acute Assessment and Plan: Improved today. Most likely related to recent pneumonia, persistent cough and COPD exacerbation. (4) Diastolic CHF Current Visit: Yes Status: Chronic Assessment and Plan: Chronic congestive heart failure. Patient received intravenous Lasix last night to see this would improve his breathing. He does not appear to have acute congestive heart failure at this time. Will transition to oral Lasix (5) Essential hypertension Current Visit: Yes Status: Chronic Assessment and Plan: Continue home medications. Well-controlled (6) Pulmonary embolism Current Visit: Yes Status: Chronic Assessment and Plan: Patient was not taking Xarelto recently. Obtain CT scan of the chest which showed no new PE. We will continue Xarelto. Recommend taking Xarelto till April this year to complete 6 months course. - Time Spent with Patient Total time spent is greater than 50% in coordination of care (as documented) at patient's floor/unit and/or counseling patient: Internal Medicine: Result - Labs CBC & Chem 7: 03/07/18 04:29 03/07/18 04:29 Labs: Short CBC 03/07/18 Range/Units 04:29 WBC 6.7 (4.3-11.1) K/mcL Hgb 10.9 L (12.9-16.9) g/dL Hct 34.6 L (37.5-50.1) % Plt Count 344 (140-400) K/mcL Neutrophils # 5.8 (1.6-8.9) K/mcL BMP 03/07/18 04:29 Sodium 136 Potassium 4.1 Chloride 96 L Carbon Dioxide 31 H BUN 18 Creatinine 0.60 L Glucose 140 H Calcium 9.3 - ABG Interpretation ABG results: PT/INR, D-dimer PT 20.4 Seconds (9.4-12.1) H 03/06/18 11:51 - Impressions Impressions Chest CTA 03/06/18 15:04 IMPRESSION: 1. No findings of pulmonary embolism. 2. Abnormal contours of the trachea and central bronchi suggestive of tracheobronchomalacia. 3. Mild bronchial wall thickening may be related to the above process but also could be due to bronchitis given central airway secretions. Reactive airways disease pulmonary vascular congestion could also result in this appearance. 4. Mild centrilobular and paraseptal emphysema. D/ / Martinez Diamond MD / Martinez Diamond MD Interpreting Provider: Martinez Diamond MD Consult Discharge Plan - Plan Referrals: Marilyn Rojas GATE OPERATOR [Primary Care Provider] - Prescriptions: predniSONE [PredniSONE] 10 mg PO DAILY #8 tablet (4) Diastolic CHF Qualifiers: Heart failure chronicity: chronic Qualified Code(s): I50.32 - Chronic diastolic (congestive) heart failure (6) Pulmonary embolism Qualifiers: Pulmonary embolism type: other Chronicity: chronic Acute cor pulmonale presence: without acute cor pulmonale Qualified Code(s): I27.82 - Chronic pulmonary embolism
[2018-03-07] MEDS: Furosemide 40 MG TABLET PO SCH ×2 (12:47→16:15)
[2018-03-07] MEDS: *HR* Rivaroxaban 10 MG TABLET PO SCH (16:15)
[2018-03-07 23:14] VITALS: BP 103/54
[2018-03-08] MEDS: methylPREDNISolone 125 MG/2 ML VIAL IVP SCH (00:13)
[2018-03-08] MEDS: Ipratropium/Albuterol Neb 3 ML IH SCH (07:20)
[2018-03-08] MEDS: Budesonide/Formoterol 160/4.5 1 PUFF INH IH SCH (07:20)
[2018-03-08] MEDS ORDERED: Ipratropium/Albuterol Neb 3 ML IH ONE ×3 (11:35)
[2018-03-08] MEDS ORDERED: Gabapentin 300 MG CAPSULE PO ONE (11:35)
[2018-03-08] MEDS ORDERED: methylPREDNISolone 125 MG/2 ML VIAL IVP ONE (11:35)
[2018-03-08] MEDS ORDERED: Loratadine 10 MG TABLET PO ONE (11:35)
[2018-03-08] MEDS ORDERED: Furosemide 40 MG TABLET PO ONE (11:35)
--- NOTE | 2018-03-08 12:21 | Discharge Summary ---
- NOTES TO OUTPATIENT PROVIDER Notes to Outpatient Provider: Patient with history of COPD was hospitalized here with acute COPD exacerbation. Patient has had recurrent hospitalizations here for the same condition. CT scan of the chest was done which showed tracheomalacia which could be exacerbating his symptoms. He was treated with bronchodilators, O2 supplementation and steroids. He is now doing better but wishes to go home urgently. The his been advised to return to the ER if his symptoms recur. He will be discharged on steroid taper. He will follow up with pulmonology as outpatient. Date of Encounter: 03/08/18 Time of Encounter: 09:00 - Discharge Diagnosis (1) Acute and chronic respiratory failure with hypoxia Priority: Primary Status: Acute (2) COPD exacerbation Priority: Secondary Status: Acute (3) Chest tightness Priority: Secondary Status: Resolved (4) Diastolic CHF Priority: Secondary Status: Chronic Qualifiers: Heart failure chronicity: chronic Qualified Code(s): I50.32 - Chronic diastolic (congestive) heart failure (5) Essential hypertension Priority: Secondary Status: Chronic (6) Pulmonary embolism Priority: Secondary Status: Chronic Qualifiers: Pulmonary embolism type: other Chronicity: chronic Acute cor pulmonale presence: without acute cor pulmonale Qualified Code(s): I27.82 - Chronic pulmonary embolism Hospital course: Mr. Blanchard is a 58 year old male Patient with history of COPD, CHF, PE, who was hospitalized here with acute COPD exacerbation. Patient has had recurrent hospitalizations here for the same condition. CT scan of the chest was done which showed tracheomalacia which could be exacerbating his symptoms. He was treated with bronchodilators, O2 supplementation and steroids. He is now doing better but wishes to go home urgently. The his been advised to return to the ER if his symptoms recur. He will be discharged on steroid taper. He will follow up with pulmonology as outpatient. Patient has a history of PE diagnosed in September. He is supposed to be on Xarelto but has not been taking his medications. CT angiogram of the chest was done which did not show any new PE. He will need to continue taking his anticoagulation medication until at least April. Patient did complain of chest pain which was pleuritic in nature. It has since resolved. Discharge discussed with: patient, nurse - Time Spent with Patient Total time spent providing and/or coordinating discharge services: Greater than 30 minutes (32 min) - Discharge Medications Prescriptions: predniSONE [PredniSONE] 10 mg PO DAILY #8 tablet Home Medications: Oxygen 4 l NS AD 07/25/17 [History] Roflumilast [Daliresp] 500 mcg PO DAILY 07/25/17 [History] Furosemide [Lasix] 40 mg PO TID #90 tab 09/20/17 [Rx] Mometasone/Formoterol [Dulera 200 Mcg/5 Mcg Inhaler] 2 puff IH BID #1 hfa.aer.ad 09/20/17 [Rx] Omeprazole [PriLOSEC] 20 mg PO 0730 09/30/17 [History] Loratadine [Claritin] 10 mg PO DAILY #30 tablet 11/09/17 [Rx] Gabapentin [Neurontin] 300 mg PO TID 12/31/17 [History] Triamterene/HCTZ 37.5/25mg [Dyazide] 1 tab PO DAILY 12/31/17 [History] Ipratropium/Albuterol Neb [Duoneb] 3 ml IH Q4H PRN #60 inhsol 01/06/18 [Rx] Albuterol Sulfate [Albuterol Inhaler] 2 puff IH Q4H PRN #1 inhaler 01/17/18 [Rx] Albuterol Neb [Proventil Neb] 2.5 mg IH Q4HR PRN 02/16/18 [History] HYDROcodone/Acet 5/325 mg [[place] 5-325 mg] 1 tab PO Q6H PRN 02/27/18 [History] Cefdinir [Omnicef] 300 mg PO BID 5 Days #10 capsule 03/01/18 [Rx] predniSONE [PredniSONE] 40 mg PO DAILY 5 Days #10 tablet 03/01/18 [Rx] Rivaroxaban [Xarelto] 20 mg PO DAILY@1700 03/06/18 [History] predniSONE [PredniSONE] 10 mg PO DAILY #8 tablet 03/07/18 [Rx] Allergies/Adverse Reactions: Allergy/AdvReac Type Severity Reaction Status Date / Time levofloxacin AdvReac Blurry Verified 03/06/18 11:33 [facility] Date of admission: 03/06/18 13:05 Primary care physician: Marilyn Rojas CNP Discharging clinician: Tj Boswell Anticipated date of discharge: 03/08/18 - Constitutional Vitals: Temp Pulse Resp BP Pulse Ox 98.1 F 79 18 103/54 97 03/07/18 23:10 03/07/18 23:10 03/07/18 23:42 03/07/18 23:10 03/07/18 23:42 General appearance: Present: cooperative, A&O X 3, pleasant, obese, answers questions appropriately Exam: . - Respiratory Respiratory exam: Present: prolonged expiratory phase, wheezes. Absent: accessory muscle use, rales, rhonchi - Cardiovascular Cardiovascular exam: Present: RRR, +S1, +S2. Absent: diastolic murmur, gallop, rubs, systolic murmur - GI/Abdominal GI/Abdominal exam: Present: normal bowel sounds, soft, no peritoneal signs. Absent: distended, tenderness - Patient Status Disposition: Home, Self-Care Condition: Good Functional capacity at discharge: uses cane/walker Overall status at discharge: patient is progressing back to baseline - Discharge Instructions Instructions: Heart Failure (DC), Acute Respiratory Distress Syndrome (DC), Chronic Obstructive Pulmonary Disease (DC) Follow Up With: Marilyn Rojas PLATE EMBOSSER [Primary Care Provider] - (in 1-2 weeks) Additional Instructions: Follow-up with pulmonology as outpatient - Diet and Activity Activity: increase activity as tolerated, wear oxygen at all times Diet: low fat, low cholesterol, low salt diet
--- NOTE | 2018-03-08 12:22 | Physician Discharge Referral ---
Home Health/Hosp Referral Info Transfer to: Home Health Provider in Charge Post Discharge: PCP - Diagnosis (1) Acute and chronic respiratory failure with hypoxia Priority: Primary Status: Acute (2) COPD exacerbation Priority: Secondary Status: Acute (3) Chest tightness Priority: Secondary Status: Resolved (4) Diastolic CHF Priority: Secondary Status: Chronic (5) Essential hypertension Priority: Secondary Status: Chronic (6) Pulmonary embolism Priority: Secondary Status: Chronic - Respiratory Orders Oxygen / L per min (2-3) Smoking Cessation: Smoking cessation has been advised. For more information, call the [place] Tobacco Quit Line at 2-321-YIBG-NOW. - Diet/Nutrition Diet/Nutrition Orders: Cardiac - Activity Activity Orders: Walker - Services Needed Following services are medically necessary services: Nursing, Physical Therapy, Occupational Therapy - Transfer Medications Prescriptions: predniSONE [PredniSONE] 10 mg PO DAILY #8 tablet Home Medications: Oxygen 4 l NS AD 07/25/17 [History] Roflumilast [Daliresp] 500 mcg PO DAILY 07/25/17 [History] Furosemide [Lasix] 40 mg PO TID #90 tab 09/20/17 [Rx] Mometasone/Formoterol [Dulera 200 Mcg/5 Mcg Inhaler] 2 puff IH BID #1 hfa.aer.ad 09/20/17 [Rx] Omeprazole [PriLOSEC] 20 mg PO 0730 09/30/17 [History] Loratadine [Claritin] 10 mg PO DAILY #30 tablet 11/09/17 [Rx] Gabapentin [Neurontin] 300 mg PO TID 12/31/17 [History] Triamterene/HCTZ 37.5/25mg [Dyazide] 1 tab PO DAILY 12/31/17 [History] Ipratropium/Albuterol Neb [Duoneb] 3 ml IH Q4H PRN #60 inhsol 01/06/18 [Rx] Albuterol Sulfate [Albuterol Inhaler] 2 puff IH Q4H PRN #1 inhaler 01/17/18 [Rx] Albuterol Neb [Proventil Neb] 2.5 mg IH Q4HR PRN 02/16/18 [History] HYDROcodone/Acet 5/325 mg [[place] 5-325 mg] 1 tab PO Q6H PRN 02/27/18 [History] Cefdinir [Omnicef] 300 mg PO BID 5 Days #10 capsule 03/01/18 [Rx] predniSONE [PredniSONE] 40 mg PO DAILY 5 Days #10 tablet 03/01/18 [Rx] Rivaroxaban [Xarelto] 20 mg PO DAILY@1700 03/06/18 [History] predniSONE [PredniSONE] 10 mg PO DAILY #8 tablet 03/07/18 [Rx] Allergies/Adverse Reactions: Allergy/AdvReac Type Severity Reaction Status Date / Time levofloxacin AdvReac Blurry Verified 03/06/18 11:33 [facility] Certification: Further, I certify that my clinical findings support that this patient is homebound (i.e. absences from home require considerable and taxing effort and are for medical reasons or uatsdin services or infrequently or short duration when for other reasons) because: Homebound Reason: Patient requires assistance of a person or device to safely leave home Attestation: My signature below is to certify that this patient is under my care and that I, or nurse practitioner, or a physician's porcelain buildup assistant working with me, has a uiat-[id number] encounter with this patient.
== END 2018-03-08 11:36 | disposition home or self-care (01) | DRG 140 ==
LOC: EMEROOARM 11:22 → 2ANU 13:05 → SUATTDRO 13:05 → 2ANU 13:39
PROVIDERS: ADMIT Internal Medicine; ATTEND Internal Medicine

== ENCOUNTER 2018-03-11 20:03 | Observation (INO) ==
[2018-03-11] MEDS ORDERED: Isovue-370 500 ML INFUS..BTL IV ONE (20:19)
[2018-03-11] MEDS ORDERED: Ipratropium/Albuterol Neb 3 ML IH ONE (20:21)
--- NOTE | 2018-03-11 20:34 | Emergency Department Note ---
Disposition Clinical Impression: Dyspnea Qualifiers: Dyspnea type: unspecified Qualified Code(s): R06.00 - Dyspnea, unspecified Leg pain Qualifiers: Laterality: bilateral Qualified Code(s): M79.604 - Pain in right leg; M79.605 - Pain in left leg Disposition: Still a Patient Reasons to Return/Additional Instructions: Return to the emergency department if you have any worsening of your current symptoms, or if you develop any new symptoms. Follow-up by setting up an appointment with your primary care provider tomorrow for recheck. Referrals: Nilson Campa [Primary Care Provider] - Forms: ED Satisfaction Letter General Adult HPI - General Chief complaint: ED Shortness of Breath/Dyspnea Stated complaint: "PHYLLIS/Feet Numb/Here Earlier Today" Time Seen by Provider: 03/11/18 20:15 Source: patient Nursing Notes Reviewed: Yes Vital Signs Reviewed: Yes - History of Present Illness HPI Narrative: 58-year-old male who was seen earlier today presents with concern for shortness of breath and bilateral lower extremity numbness and tingling. Patient states that his landlord will not fix the heat at home. States that is why he thinks his legs are cold. Denies any headache, nausea, vomiting, chest pain, does report some shortness of breath. Denies any fevers, sputum production. Denies any numbness or tingling and his upper extremities or face. Pain Scale: 0 - Related Data Home Medications Medication Instructions Recorded Confirmed Oxygen 4 l NS AD 07/25/17 03/06/18 Roflumilast [Daliresp] 500 mcg PO DAILY 07/25/17 03/06/18 Omeprazole [PriLOSEC] 20 mg PO 0730 09/30/17 03/06/18 Gabapentin [Neurontin] 300 mg PO TID 12/31/17 03/06/18 Triamterene/HCTZ 37.5/25mg 1 tab PO DAILY 12/31/17 03/06/18 [Dyazide] Albuterol Neb [Proventil Neb] 2.5 mg IH Q4HR PRN 02/16/18 03/06/18 HYDROcodone/Acet 5/325 mg [[place] 1 tab PO Q6H PRN 02/27/18 03/06/18 5-325 mg] Rivaroxaban [Xarelto] 20 mg PO DAILY@1700 03/06/18 03/06/18 Previous Rx's Medication Instructions Recorded Furosemide [Lasix] 40 mg PO TID #90 tab 09/20/17 Mometasone/Formoterol [Dulera 200 2 puff IH BID #1 hfa.aer.ad 09/20/17 Mcg/5 Mcg Inhaler] Loratadine [Claritin] 10 mg PO DAILY #30 tablet 11/09/17 Ipratropium/Albuterol Neb [Duoneb] 3 ml IH Q4H PRN #60 inhsol 01/06/18 Albuterol Sulfate [Albuterol 2 puff IH Q4H PRN #1 inhaler 01/17/18 Inhaler] Cefdinir [Omnicef] 300 mg PO BID 5 Days #10 capsule 03/01/18 predniSONE [PredniSONE] 40 mg PO DAILY 5 Days #10 tablet 03/01/18 predniSONE [PredniSONE] 10 mg PO DAILY #8 tablet 03/07/18 predniSONE [Prednisone] 50 mg PO DAILY #6 tablet 03/11/18 Allergies Allergy/AdvReac Type Severity Reaction Status Date / Time levofloxacin AdvReac Blurry Verified 03/06/18 11:33 [facility] All systems ED: reviewed and negative except as stated. Review of Systems: As Per HPI Constitutional: Denies: fever Cardiovascular: Denies: chest pain Respiratory: Denies: cough, dyspnea Gastrointestinal: Denies: abdominal pain, nausea, vomiting Musculoskeletal: Denies: back pain, neck pain Neurological: Reports: numbness, paresthesias. Denies: headache Psychiatric: Denies: anxiety Past Medical History - Past Medical History Medical history: Reports: CHF, COPD, hyperlipidemia, hypertension, pulmonary embolus Surgical history: Reports: no surgical history Psychiatric history: Reports: anxiety, depression - Social History Smoking Status: Former smoker Smokeless Tobacco Status: No Alcohol use: Reports: none Drug use: Reports: none Physical Exam - General General appearance: alert - Head Head exam: normocephalic - Eye Eye exam: Present: EOMI - ENT ENT exam: mucous membranes moist - Neck Neck exam: Present: trachea midline - Chest Chest inspection: Present: symmetric chest wall rise - Respiratory Respiratory exam: Present: other (Rhonchi throughout). Absent: respiratory distress, accessory muscle use - Cardiovascular Cardiovascular exam: Present: regular rate, normal rhythm, normal heart sounds - Abdominal Exam Abdominal exam: Present: soft, Non-Tender. Absent: distention, guarding, rebound, rigidity - Extremities Exam Extremities exam: Present: normal capillary refill - Back Exam Back exam: Present: full ROM - Neurological Exam Neurological exam: Present: alert, oriented X3, CN II-XII intact - Psychiatric Psychiatric exam: Present: normal affect, normal mood - Skin Skin exam: Present: warm, dry, intact Course Vital Signs Temperature 98.0 F 03/11/18 20:08 Pulse Rate 94 03/11/18 20:08 Respiratory Rate 24 03/11/18 20:08 Blood Pressure 145/89 03/11/18 20:08 O2 Sat by Pulse Oximetry 93 03/11/18 20:08 Temperature 98.0 F 03/11/18 20:08 Pulse Rate 69 03/11/18 21:04 Respiratory Rate 16 03/11/18 22:00 Blood Pressure 132/83 03/11/18 22:00 O2 Sat by Pulse Oximetry 99 03/11/18 22:00 Oxygen Delivery Oxygen Delivery Nasal Cannula Medical Decision Making - [facility] Narrative Medical decision making narrative: 58-year-old male presents emergency department with concern for shortness of breath, numbness and tingling in lower extremity. Patient at 97% on 5 L of oxygen via nasal K at this time. Patient normally uses for home per his report. Recent admission, frequent emergency department visits in last few days, earlier in the emergency department visit and discharged today. We will obtain CT angiogram of the chest. We are providing 3 DuoNeb's. Obtain EKG, troponin, BNP. Patient not have a leukocytosis earlier, hemoglobin was stable, kidney function was normal. Patient does not appear to be in any distress at this time. As far as the Bilateral lower extremity numbness and tingling is cocnerned, this is not stroke-like as these are the same. No certain pattern that would be consistent with a radiculopathy. No back pain or red flag symptoms. Obtained carboxyhemoglobin and this was within normal limits. Patient is on gabapentin for neuropathy. Gave him more. Transfer of care to be provided to Dr. Singer, and Dr. Charlie Mcgovern. Plan is currently to have patient discharged patient home if CTA of chest does not reveal any evidence of acute cardiopulmonary abnormality. Patient hemodynamically stable not in any distress currently on her normal oxygen that he has at home. Vital Signs Temperature 98.0 F 03/11/18 20:08 Pulse Rate 94 03/11/18 20:08 Respiratory Rate 24 03/11/18 20:08 Blood Pressure 145/89 03/11/18 20:08 O2 Sat by Pulse Oximetry 93 03/11/18 20:08 Temperature 98.0 F 03/11/18 20:08 Pulse Rate 69 03/11/18 21:04 Respiratory Rate 16 03/11/18 22:00 Blood Pressure 132/83 03/11/18 22:00 O2 Sat by Pulse Oximetry 99 03/11/18 22:00 Oxygen Delivery Oxygen Delivery Nasal Cannula - Lab Data Lab Results 03/11/18 03/11/18 03/11/18 Range/Units 22:13 22:13 22:13 Carboxyhemoglobin 2.3 (0-5) % Troponin I < 0.03 (< 0.04) ng/mL B-Natriuretic Peptide 48 (Less than 100) pg/mL - EKG Data EKG #1 EKG attestation: Yes I reviewed and interpreted this EKG. EKG results narrative: Heart rate 69 beats for minute, appearing 158 ms, QRS duration 98 ms, QT 422 ms, QTC 454 months since, no axis. Sinus rhythm ventricular rate of 69 bpm. No evidence of any ischemic ST changes on this EKG.
--- NOTE | 2018-03-11 22:56 | Emergency Department Note ---
Disposition Clinical Impression: Dyspnea Qualifiers: Dyspnea type: unspecified Qualified Code(s): R06.00 - Dyspnea, unspecified Disposition: Still a Patient Referrals: Nilson Campa [Primary Care Provider] - Forms: ED Satisfaction Letter General Adult HPI - General Chief complaint: ED Shortness of Breath/Dyspnea Stated complaint: "PHYLLIS/Feet Numb/Here Earlier Today" Time Seen by Provider: 03/11/18 20:15 Source: patient - History of Present Illness Pain Scale: 0 - Related Data Home Medications Medication Instructions Recorded Confirmed Oxygen 4 l NS AD 07/25/17 03/06/18 Roflumilast [Daliresp] 500 mcg PO DAILY 07/25/17 03/06/18 Omeprazole [PriLOSEC] 20 mg PO 0730 09/30/17 03/06/18 Gabapentin [Neurontin] 300 mg PO TID 12/31/17 03/06/18 Triamterene/HCTZ 37.5/25mg 1 tab PO DAILY 12/31/17 03/06/18 [Dyazide] Albuterol Neb [Proventil Neb] 2.5 mg IH Q4HR PRN 02/16/18 03/06/18 HYDROcodone/Acet 5/325 mg [[place] 1 tab PO Q6H PRN 02/27/18 03/06/18 5-325 mg] Rivaroxaban [Xarelto] 20 mg PO DAILY@1700 03/06/18 03/06/18 Previous Rx's Medication Instructions Recorded Furosemide [Lasix] 40 mg PO TID #90 tab 09/20/17 Mometasone/Formoterol [Dulera 200 2 puff IH BID #1 hfa.aer.ad 09/20/17 Mcg/5 Mcg Inhaler] Loratadine [Claritin] 10 mg PO DAILY #30 tablet 11/09/17 Ipratropium/Albuterol Neb [Duoneb] 3 ml IH Q4H PRN #60 inhsol 01/06/18 Albuterol Sulfate [Albuterol 2 puff IH Q4H PRN #1 inhaler 01/17/18 Inhaler] Cefdinir [Omnicef] 300 mg PO BID 5 Days #10 capsule 03/01/18 predniSONE [PredniSONE] 40 mg PO DAILY 5 Days #10 tablet 03/01/18 predniSONE [PredniSONE] 10 mg PO DAILY #8 tablet 03/07/18 predniSONE [Prednisone] 50 mg PO DAILY #6 tablet 03/11/18 Allergies Allergy/AdvReac Type Severity Reaction Status Date / Time levofloxacin AdvReac Blurry Verified 03/06/18 11:33 Vision Constitutional: Denies: fever Cardiovascular: Denies: chest pain Respiratory: Denies: cough, dyspnea Gastrointestinal: Denies: abdominal pain, nausea, vomiting Musculoskeletal: Denies: back pain, neck pain Neurological: Reports: numbness, paresthesias. Denies: headache Psychiatric: Denies: anxiety Past Medical History - Past Medical History Medical history: Reports: CHF, COPD, hyperlipidemia, hypertension, pulmonary embolus Surgical history: Reports: no surgical history Psychiatric history: Reports: anxiety, depression - Social History Smoking Status: Former smoker Smokeless Tobacco Status: No Alcohol use: Reports: none Drug use: Reports: none Physical Exam - General General appearance: alert Course Vital Signs Temperature 98.0 F 03/11/18 20:08 Pulse Rate 94 03/11/18 20:08 Respiratory Rate 24 03/11/18 20:08 Blood Pressure 145/89 03/11/18 20:08 O2 Sat by Pulse Oximetry 93 03/11/18 20:08 Temperature 98.0 F 03/11/18 20:08 Pulse Rate 69 03/11/18 21:04 Respiratory Rate 16 03/11/18 22:00 Blood Pressure 132/83 03/11/18 22:00 O2 Sat by Pulse Oximetry 99 03/11/18 22:00 Oxygen Delivery Oxygen Delivery Nasal Cannula Medical Decision Making - Lab Data Lab Results 03/11/18 Range/Units 22:13 Carboxyhemoglobin 2.3 (0-5) % Attestation Statement - Attestation Attestation: I examined this patient and my medical decision-making was reviewed with the Resident Physician. I agree with the documented findings, disposition and treatment plan as described except to the extent set forth below. 58 year old male presents to the ED with complants of phyllis and legs being cold and numb. Bernabe had the pleasure of caring for this patient 4-5 days ago and admitteed him for hypoxia. he was dischaarged two days ago and returned this mornign and had a cardiopulmonary workup then and dischsarge home. Tonya is back coming of PHYLLIS but it on his home oxygen of 5LNC and not hypoxic. We will obtan a CTA chest to rule out pneumonia vs PE. carboyxhgb is low. Patinet has been signed out to Dr. Charlie Mcgovern and viji. Plan is that if CTA negatie then to disharge home. If CTA is postiive for pneumonia or PE then to admit ot medicine. Dr. Lawson will writeup discharge instruction in anticipation that he will be discharged home
[2018-03-11] MEDS ORDERED: Gabapentin 300 MG CAPSULE PO ONE (22:59)
[2018-03-12] MEDS ORDERED: cefTRIAXone 1,000 MG in Water for inj. (sterile) 20 ML 10 ML IVP ONE (00:27)
[2018-03-12] MEDS ORDERED: Azithromycin 500 MG in D5% in Water 250 ML IVPB ONE (00:28)
--- NOTE | 2018-03-12 00:30 | Emergency Department Note ---
Disposition Clinical Impression: COPD exacerbation, Hypoxia Dyspnea Qualifiers: Dyspnea type: unspecified Qualified Code(s): R06.00 - Dyspnea, unspecified Leg pain Qualifiers: Laterality: bilateral Qualified Code(s): M79.604 - Pain in right leg Disposition: Admitted As Inpatient Condition: Fair Time of Disposition: 00:37 General Adult HPI - General Chief complaint: ED Shortness of Breath/Dyspnea Stated complaint: "PHYLLIS/Feet Numb/Here Earlier Today" Time Seen by Provider: 03/11/18 20:15 Source: patient - History of Present Illness HPI Narrative: Patient was signed out by the prior provider. Please see their doctor patient for complete history and physical. Of note patient was seen earlier in the day was diagnosed with a COPD exacerbation. Patient was treated with aerosols and steroids. Patient that time was thought appropriate discharge for home. On reevaluation the patient was signed out pending a CTA of the chest. Pain Scale: 0 - Related Data Home Medications Medication Instructions Recorded Confirmed Oxygen 4 l NS AD 07/25/17 03/06/18 Roflumilast [Daliresp] 500 mcg PO DAILY 07/25/17 03/06/18 Omeprazole [PriLOSEC] 20 mg PO 0730 09/30/17 03/06/18 Gabapentin [Neurontin] 300 mg PO TID 12/31/17 03/06/18 Triamterene/HCTZ 37.5/25mg 1 tab PO DAILY 12/31/17 03/06/18 [Dyazide] Albuterol Neb [Proventil Neb] 2.5 mg IH Q4HR PRN 02/16/18 03/06/18 HYDROcodone/Acet 5/325 mg [[place] 1 tab PO Q6H PRN 02/27/18 03/06/18 5-325 mg] Rivaroxaban [Xarelto] 20 mg PO DAILY@1700 03/06/18 03/06/18 Previous Rx's Medication Instructions Recorded Furosemide [Lasix] 40 mg PO TID #90 tab 09/20/17 Mometasone/Formoterol [Dulera 200 2 puff IH BID #1 hfa.aer.ad 09/20/17 Mcg/5 Mcg Inhaler] Loratadine [Claritin] 10 mg PO DAILY #30 tablet 11/09/17 Ipratropium/Albuterol Neb [Duoneb] 3 ml IH Q4H PRN #60 inhsol 01/06/18 Albuterol Sulfate [Albuterol 2 puff IH Q4H PRN #1 inhaler 01/17/18 Inhaler] Cefdinir [Omnicef] 300 mg PO BID 5 Days #10 capsule 03/01/18 predniSONE [PredniSONE] 40 mg PO DAILY 5 Days #10 tablet 03/01/18 predniSONE [PredniSONE] 10 mg PO DAILY #8 tablet 03/07/18 predniSONE [Prednisone] 50 mg PO DAILY #6 tablet 03/11/18 Allergies Allergy/AdvReac Type Severity Reaction Status Date / Time levofloxacin AdvReac Blurry Verified 03/06/18 11:33 Vision Constitutional: Denies: fever Cardiovascular: Denies: chest pain Respiratory: Denies: cough, dyspnea Gastrointestinal: Denies: abdominal pain, nausea, vomiting Musculoskeletal: Denies: back pain, neck pain Neurological: Reports: numbness, paresthesias. Denies: headache Psychiatric: Denies: anxiety Past Medical History - Past Medical History Medical history: Reports: CHF, COPD, hyperlipidemia, hypertension, pulmonary embolus Surgical history: Reports: no surgical history Psychiatric history: Reports: anxiety, depression - Social History Smoking Status: Former smoker Smokeless Tobacco Status: No Alcohol use: Reports: none Drug use: Reports: none Physical Exam - General General appearance: alert Course - Reevaluation(s) Reevaluation #1: Patient seen and examined. Patient had trial of ambulation on 4 L which is baseline nasal cannula. Patient was hypoxic with oxygen saturation of 85%. Time: 00:26 Vital Signs Temperature 98.0 F 03/11/18 20:08 Pulse Rate 94 03/11/18 20:08 Respiratory Rate 24 03/11/18 20:08 Blood Pressure 145/89 03/11/18 20:08 O2 Sat by Pulse Oximetry 93 03/11/18 20:08 Temperature 98.0 F 03/11/18 20:08 Pulse Rate 69 03/11/18 21:04 Respiratory Rate 16 03/11/18 22:00 Blood Pressure 132/83 03/11/18 22:00 O2 Sat by Pulse Oximetry 99 03/11/18 22:00 Oxygen Delivery Oxygen Delivery Nasal Cannula Medical Decision Making - MDM Narrative Medical decision making narrative: Patient presented for concerns of dyspnea. Patient was seen by prior providers. Patient was also seen earlier in the day and was diagnosed with a COPD exacerbation. Patient felt appropriate discharge at that time. Patient returned later this evening for worsening dyspnea. Patient's workup was extended and had a CT Briana chest as well as troponin and BNP. Patient CTA of the chest shows no evidence of PE. Does have thickening of the bronchi. Patient was treated with aerosols as well as antibiotics coverage for COPD. Patient did not pass and ambulatory oxygen trial. Patient was symptomatic. Patient will be admitted to the hospital service for further evaluation and monitoring of his cardiopulmonary status. - Lab Data Lab Results 03/11/18 03/11/18 03/11/18 Range/Units 22:13 22:13 22:13 Carboxyhemoglobin 2.3 (0-5) % Troponin I < 0.03 (< 0.04) ng/mL B-Natriuretic Peptide 48 (Less than 100) pg/mL - Radiology Data Radiology results reviewed: Yes I reviewed the patient's radiology results. Chest CTA 03/11/18 20:19 IMPRESSION: 1. No pulmonary embolism. 2. 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 3. Thickening of the bronchi to the lower lungs probably on a chronic postinfectious/inflammatory basis. 4. Emphysema. D/ / Dane Patterson / Dane Patterson Interpreting Provider: Dane Patterson S.B.A.R. - S.B.A.RJerome Situation: Demographics Background: Presenting Complaint Assessment: Vital Signs, Course and respsone to treatment, Patient/Family Expectation Recommendation: Barrier(s) to disposition, Recommendation based on pending studies, treatments, or consults S.B.A.R. Report Given to: Dr. Garcia SJeromeB.ALety Repor Time: 00:39 Attestation Statement - Attestation Attestation: I, Charlie Mcgovern, examined this patient and my medical decision-making was reviewed with the SUPERINTENDENT [employer] HATCHERY/PA/Advanced Practice Nurse/Resident Physician. I agree with the documented findings, disposition and treatment plan as described except to the extent set forth below. 58-year-old male received in sign out at [address] of the chest to rule out PE or occult pneumonia. CT does not show evidence of pneumothorax, hemothorax, PE. Patient was recently admitted for COPD exacerbation. He states he has taken his antibiotic prescription however he has not been taking his steroids at home. Patient is not taking steroids that he was sent home with from the hospital. Patient states he has significant dyspnea with exertion. During ambulation trial emergency department he desaturated to 85% despite being on 4 L of nasal cannula. Patient does not feel comfortable to return home. He will be admitted to the hospitalist for further care and evaluation.
[2018-03-12] MEDS ORDERED: Naloxone 0.4 MG/ML INJ IVP PRN (08:24)
[2018-03-12] MEDS ORDERED: FLU VAC QV 2018(18YR UP)RCM/PF 0.5 ML SYRINGE IM ONE (08:27)
--- NOTE | 2018-03-12 08:31 | Internal Med History&Physical ---
Date of Encounter: 03/12/18 Time of Encounter: 08:28 Internal Medicine - H&P: HPI Chief complaint: dyspnea, cough, wheezing Admitted From: Home Plans for Post Hospital Care: Home History of present illness: Mr. Blanchard is a 58 year old male with a PMH of CHF, COPD, hyperlipidemia, hypertension, and pulmonary embolus. He presents to the ED overnight after being discharged early yesterday afternoon for a COPD exacerbation. At the initial time presentation the patient was reporting cough productive of thick white sputum, wheezing and shortness of breath. He was given aerosols and steroids and improved and was sent home and baseline 4 L nasal cannula. However, he returned overnight with increasing respiratory distress, cough and wheezing and was hypoxic with oxygen saturation of 85% requiring an increase from 4 L baseline nasal cannula. He has had many frequent readmissions for COPD exacerbation and is recently been given a nurse navigator to follow in the outpatient setting to assist with medication compliance. Should be noted that he has severe advanced COPD. He denies any fever, chest pain, cough, dyspnea, abdominal pain, nausea, vomiting, back pain, neck pain, numbness/tingling, headache, anxiety. He reports that he has been using his nebulizers but they have not been helping. His CTA chest is negative for PE, findings seen typical of tracheobronchomalacia, there is evidence of thickening of the bronchi to lower lungs which is probably chronic but could also represent postinfectious/inflammatory reaction. Emphysema noted. He is afebrile and hemodynamically stable. Since he continues to require SPO2 more than baseline he is being admitted for further treatment and evaluation. Past Med Surg Social Fam HX - Past Medical History Medical history: CHF, COPD, hyperlipidemia, hypertension, pulmonary embolus Psychiatric history: anxiety, depression - Past Surgical History Surgical History: no surgical history - Social History Smoking Status: Former smoker Smokeless Tobacco Status: No Alcohol use: none Drug use: none - Family History Father Living Status: Hx Family Cancer: Yes Mother Living Status: Hx Family Cancer: Yes Internal Medicine - H&P: Meds Oxygen 4 l NS AD 07/25/17 [History] Roflumilast [Daliresp] 500 mcg PO DAILY 07/25/17 [History] Furosemide [Lasix] 40 mg PO TID #90 tab 09/20/17 [Rx] Mometasone/Formoterol [Dulera 200 Mcg/5 Mcg Inhaler] 2 puff IH BID #1 hfa.aer.ad 09/20/17 [Rx] Omeprazole [PriLOSEC] 20 mg PO 0730 09/30/17 [History] Loratadine [Claritin] 10 mg PO DAILY #30 tablet 11/09/17 [Rx] Gabapentin [Neurontin] 300 mg PO TID 12/31/17 [History] Triamterene/HCTZ 37.5/25mg [Dyazide] 1 tab PO DAILY 12/31/17 [History] Albuterol Sulfate [Albuterol Inhaler] 2 puff IH Q4H PRN #1 inhaler 01/17/18 [Rx] Albuterol Neb [Proventil Neb] 2.5 mg IH Q4HR PRN 02/16/18 [History] Cefdinir [Omnicef] 300 mg PO BID 5 Days #10 capsule 03/01/18 [Rx] predniSONE [PredniSONE] 40 mg PO DAILY 5 Days #10 tablet 03/01/18 [Rx] Rivaroxaban [Xarelto] 20 mg PO DAILY@1700 03/06/18 [History] predniSONE [PredniSONE] 10 mg PO DAILY #8 tablet 03/07/18 [Rx] predniSONE [Prednisone] 50 mg PO DAILY #6 tablet 03/11/18 [Rx] 3 Allergy/AdvReac Type Severity Reaction Status Date / Time levofloxacin AdvReac Blurry Verified 03/12/18 09:38 [facility] [employer] Systems PM: A 10-system review of systems was performed and is negative for pertinent findings except as documented above in the HPI. - Constitutional Constitutional: fatigue, no chills, no fever(s) - EENT Nose, mouth and throat: nasal congestion - Cardiovascular Cardiovascular ROS IM: no chest pain, no diaphoresis, no dyspnea, no lightheadedness, no palpitations, no syncope - Respiratory Respiratory: as per HPI, cough (white, thick sputum), dyspnea, dyspnea on exertion, wheezing, chest congestion, no pain on inspiration, no excessive phlegm production, no change in phlegm color, no pain with cough - Gastrointestinal Gastrointestinal: no abdominal pain, no diarrhea, no hematemesis, no hematochezia, no melena, no nausea, no vomiting - Musculoskeletal Musculoskeletal ROS IM: numbness (B/L feet; h/o neuropathy), tingling (B/L feet; h/o neuropathy) - Integumentary Integumentary IM: no rash, no unusual bruising - Constitutional Vitals: Temp Pulse Resp BP Pulse Ox 98.2 F 99 15 124/78 97 03/12/18 06:46 03/12/18 06:46 03/12/18 06:46 03/12/18 06:46 03/12/18 06:46 General appearance: Present: A&O X 3 Exam: see exam - Head Head exam: Present: atraumatic, normocephalic - Eye Pupils: Present: PERRL - Neck Neck exam general surgery: Present: supple, trachea midline. Absent: lymphadenopathy - Respiratory Respiratory exam: Present: decreased breath sounds, CTAB, prolonged expiratory phase. Absent: accessory muscle use, chest wall tenderness, rales, respiratory distress, rhonchi, wheezes, tachypnea - Cardiovascular Cardiovascular exam: Present: RRR, +S1, +S2. Absent: diastolic murmur, gallop, rubs, systolic murmur - GI/Abdominal GI/Abdominal exam: Present: normal bowel sounds, soft, no peritoneal signs. Absent: distended, tenderness - Extremities Exam Extremities exam: Present: normal capillary refill, normal inspection, warm, radial pulses palpable and symmetrical. Absent: calf tenderness, cyanotic, pedal edema - Neurological Exam Neurological exam: Present: alert, CN II-XII intact, oriented X3, no focal deficits. Absent: pronater drift, facial droop, speech deficit - Skin Skin exam: Present: dry, intact Internal Med - H&P Results - Labs Labs: Cardiac Enzymes 03/11/18 Range/Units 22:13 Troponin I < 0.03 (< 0.04) ng/mL - Impressions ITS Impressions Chest CTA 03/11/18 20:19 IMPRESSION: 1. No pulmonary embolism. 2. 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 3. Thickening of the bronchi to the lower lungs probably on a chronic postinfectious/inflammatory basis. 4. Emphysema. D/ / Dane Patterson / Dane Patterson Interpreting Provider: Dane Patterson - Assessment and plan (1) Acute exacerbation of chronic obstructive airways disease Current Visit: Yes Status: Acute Assessment and plan: Dyspnea, wheezing, and productive cough x3-5 days H/o advanced COPD requiring frequent hospitalizations Follows with pulmonology; f/u this month per patient Admitted over HS d/t increasing dyspnea on exertion, cough and wheezing Was d/c from the ED yesterday afternoon but returned with increasing dyspnea He reports that he does not have heat in his home and that this is affecting his COPD Does not appear to be in distress at this time Resting comfortably on baseline O2 4LNC, without distress Lungs; CTA/DIM throughout without wheezing; prolonged expiratory phase Treat with aerosols and oral azithromycin prophylactically Incentive spirometry Continuous telemetry CPAP at HS Supportive O2 If stable overnight consider d/c in a.m (2) Chronic respiratory failure Current Visit: Yes Status: Acute Assessment and plan: Wears 4LNC at home remains on baseline O2 continue; titrate PRN to keep Spo2 < 90% Wears CPAP for sleep apnea; continue at HS Continuous Spo2 monitoring Qualifiers: Respiratory failure complication: unspecified whether with hypoxia or hypercapnia Qualified Code(s): J96.10 - Chronic respiratory failure, unspecified whether with hypoxia or hypercapnia (3) Anxiety Current Visit: No Status: Chronic (4) Diastolic CHF Current Visit: No Status: Chronic Assessment and plan: Does not appear volume overloaded No respiratory distress Continue lasix when verified strict I&O, QD weight, and Fluid restriction 1.5 liter monitor renal function while inpatient d/t lasix Qualifiers: Heart failure chronicity: chronic Qualified Code(s): I50.32 - Chronic diastolic (congestive) heart failure (5) History of pulmonary embolism Current Visit: No Status: Chronic Assessment and plan: per hx not in acute distress CTA chest negative for PE continue Xarelto when verified will also use as DVT prophylaxis in conjunction with EPCD's - Time Spent With Patient Total time spent is greater than 50% in coordination of care (as documented) at patient's floor/unit and/or counseling patient: less than 15 minutes
[2018-03-12] MEDS: Azithromycin 250 MG TABLET PO SCH (09:11)
[2018-03-12] MEDS: Loratadine 10 MG TABLET PO SCH (11:04)
[2018-03-12] MEDS: Furosemide 20 MG TABLET PO SCH ×2 (11:04→16:26)
[2018-03-12] MEDS: (Roflumilast [Daliresp] 500 MCG) PO SCH (11:05)
[2018-03-12] MEDS: Ipratropium/Albuterol Neb 3 ML IH SCH ×5 (11:15→23:38)
[2018-03-12] MEDS: Gabapentin 300 MG CAPSULE PO SCH ×2 (14:07→21:20)
[2018-03-12] MEDS: *HR* Rivaroxaban 10 MG TABLET PO SCH (16:26)
[2018-03-13] MEDS: Ipratropium/Albuterol Neb 3 ML IH SCH ×6 (03:51→23:04)
[2018-03-13 05:16] LABS: Basophils % 0.1 %; Eosinophils # 0.1 K/mcL (0.0-0.6); Eosinophils % 0.9 %; Hematocrit 32.1 % (37.5-50.1); Hemoglobin 10.2 g/dL (12.9-16.9); Immature Granulocytes % 0.2 % (0-4); Lymphocytes # 2.4 K/mcL (0.6-4.6); Mean Corpuscular HGB Conc 31.8 g/dL (31.6-35.5); Mean Corpuscular Hemoglobin 27.2 pg (28.0-33.3); Mean Corpuscular Volume 85.6 fL (83.0-100.0); Mean Platelet Volume 10.3 fL (9.4-12.4); Monocytes # 0.4 K/mcL (0.0-1.3); Monocytes % 4.3 %; Neutrophils # 5.3 K/mcL (1.6-8.9); Platelet Count 281 K/mcL (140-400); Red Blood Count 3.75 M/mcL (4.19-5.50); Red Cell Distribution Width 15.1 % (11.5-14.5); Segmented Neutrophils % 65.5 %
[2018-03-13 05:32] LABS: BUN/Creatinine Ratio 30 (6-26); Blood Urea Nitrogen 19 mg/dL (6-20); Calcium 9.4 mg/dL (8.6-10.3); Carbon Dioxide 32 mEq/L (23-29); Chloride 98 mEq/L (98-107); Glucose 171 mg/dL (70-105); Osmolality,Calculated 290 (280-300); Potassium 3.7 mEq/L (3.5-5.1); Sodium 137 mEq/L (136-145); eGFR For Non-African Americans > 60 (> 60)
[2018-03-13] MEDS: Azithromycin 250 MG TABLET PO SCH (08:37)
[2018-03-13] MEDS: Gabapentin 300 MG CAPSULE PO SCH ×3 (08:37→20:57)
[2018-03-13] MEDS: Furosemide 20 MG TABLET PO SCH ×3 (08:37→15:58)
[2018-03-13] MEDS: (Roflumilast [Daliresp] 500 MCG) PO SCH (08:37)
[2018-03-13] MEDS: Loratadine 10 MG TABLET PO SCH (08:37)
--- NOTE | 2018-03-13 09:06 | Internal Med Progress Note ---
Hospitalist Progress Note - Encounter Date of Encounter: 03/13/18 Time of Encounter: 08:56 - Subjective Interval History: Patient was seen and examined at bedside. Currently denies any chest pain or shortness of breath. Patient verbalizes that he feels pretty well at this time. Voices concern about not having any heat in his home. Did speak with Olga therapeutic case manager-inform the patient's landlord is having his heat repair tomorrow - Exam Vitals: Temp Pulse Resp BP Pulse Ox 97.6 F 69 19 105/67 100 03/13/18 06:54 03/13/18 06:54 03/13/18 08:09 03/13/18 06:54 03/13/18 08:09 Exam: Constitutional: No fatigue, no chills, no fever(s) - EENT Nose, mouth and throat: nasal congestion - Cardiovascular Cardiovascular ROS IM: no chest pain, no diaphoresis, no dyspnea, no lightheadedness, no palpitations, no syncope - Respiratory Respiratory: cough (white, thick sputum), dyspnea, dyspnea on exertion, wheezing, chest congestion, no pain on inspiration, no excessive phlegm production, no change in phlegm color, no pain with cough - Gastrointestinal Gastrointestinal: no abdominal pain, no diarrhea, no hematemesis, no hematochezia, no melena, no nausea, no vomiting - Musculoskeletal Musculoskeletal ROS IM: numbness (B/L feet; h/o neuropathy), tingling (B/L feet; h/o neuropathy) - Integumentary Integumentary IM: no rash, no unusual bruising - Assessment and Plan (1) Acute exacerbation of chronic obstructive airways disease Current Visit: Yes Status: Acute Assessment and Plan: Dyspnea, wheezing, and productive cough x3-5 days H/o advanced COPD requiring frequent hospitalizations Follows with pulmonology; f/u this month per patient Admitted over HS d/t increasing dyspnea on exertion, cough and wheezing Was d/c from the ED yesterday afternoon but returned with increasing dyspnea He reports that he does not have heat in his home and that this is affecting his COPD Does not appear to be in distress at this time Resting comfortably on baseline O2 4LNC, without distress Lungs; CTA/DIM throughout without wheezing; prolonged expiratory phase Treat with aerosols and oral azithromycin prophylactically Incentive spirometry Continuous telemetry CPAP at HS Supportive O2 If stable overnight consider d/c in a.m 03/13 CC feels much improved today no dyspnea he does have scattered wheezes and moist productive cough. Continue with oral azithromycin as well as bronchodilators CPAP when necessary and as sleep Maintain O2 saturation greater than 88% Continue with steroid taper Will DC in a.m. if continues to be stable and awaiting patient's heat to be turned back on (2) History of pulmonary embolism Current Visit: No Status: Chronic Assessment and Plan: per hx not in acute distress CTA chest negative for PE continue Xarelto when verified will also use as DVT prophylaxis in conjunction with EPCD's 03/13 CTA chest negative for PE Continuous Xarelto (3) Anxiety Current Visit: No Status: Chronic Assessment and Plan: 1 patient is calm at this time denies any anxiety (4) Diastolic CHF Current Visit: No Status: Chronic Assessment and Plan: Does not appear volume overloaded No respiratory distress Continue lasix when verified strict I&O, QD weight, and Fluid restriction 1.5 liter monitor renal function while inpatient d/t lasix 03/13 volume overloaded and does not appear to be respiratory distress will contin ue with Lasix Monitor intake and output daily weights (5) Chronic respiratory failure Current Visit: Yes Status: Acute Assessment and Plan: Wears 4LNC at home remains on baseline O2 continue; titrate PRN to keep Spo2 < 90% Wears CPAP for sleep apnea; continue at HS Continuous Spo2 monitoring 03/13 Has history of COPD and is on continuous oxygen at 4 L nasal cannula at home. Currently appears to be at baseline we will continue with oxygen CPAP at night and while sleeping - Time Spent with Patient Total time spent is greater than 50% in coordination of care (as documented) at patient's floor/unit and/or counseling patient: Internal Medicine: Result - Labs CBC & Chem 7: 03/13/18 04:25 03/13/18 04:25 Labs: Short CBC 03/13/18 Range/Units 04:25 WBC 8.1 (4.3-11.1) K/mcL Hgb 10.2 L (12.9-16.9) g/dL Hct 32.1 L (37.5-50.1) % Plt Count 281 (140-400) K/mcL Neutrophils # 5.3 (1.6-8.9) K/mcL BMP 03/13/18 04:25 Sodium 137 Potassium 3.7 Chloride 98 Carbon Dioxide 32 H BUN 19 Creatinine 0.64 L Glucose 171 H Calcium 9.4 Consult Discharge Plan - Plan Referrals: Nilson Campa [Primary Care Provider] - Cyndi Singh MD [Partnered Physician] - 03/30/18 9:45 am (4) Diastolic CHF Qualifiers: Heart failure chronicity: chronic Qualified Code(s): I50.32 - Chronic diastolic (congestive) heart failure (5) Chronic respiratory failure Qualifiers: Respiratory failure complication: unspecified whether with hypoxia or hypercapnia Qualified Code(s): J96.10 - Chronic respiratory failure, unspecified whether with hypoxia or hypercapnia
[2018-03-13] MEDS: predniSONE 20 MG TABLET PO SCH (15:57)
[2018-03-13] MEDS: *HR* Rivaroxaban 10 MG TABLET PO SCH (15:58)
[2018-03-13] MEDS ORDERED: traMADol 50 MG TABLET PO ONE (20:30)
[2018-03-14] MEDS: Ipratropium/Albuterol Neb 3 ML IH SCH ×6 (03:52→23:01)
[2018-03-14 06:00] LABS: Eosinophils % 0.1 %; Hematocrit 34.1 % (37.5-50.1); Hemoglobin 10.8 g/dL (12.9-16.9); Immature Granulocytes % 0.4 % (0-4); Lymphocytes # 1.3 K/mcL (0.6-4.6); Lymphocytes % 17.2 %; Mean Corpuscular HGB Conc 31.7 g/dL (31.6-35.5); Mean Corpuscular Hemoglobin 27.1 pg (28.0-33.3); Mean Corpuscular Volume 85.5 fL (83.0-100.0); Monocytes # 0.2 K/mcL (0.0-1.3); Monocytes % 3.1 %; Neutrophils # 5.8 K/mcL (1.6-8.9); Platelet Count 325 K/mcL (140-400); Red Blood Count 3.99 M/mcL (4.19-5.50); Segmented Neutrophils % 79.2 %
[2018-03-14 06:27] LABS: BUN/Creatinine Ratio 33 (6-26); Blood Urea Nitrogen 21 mg/dL (6-20); Calcium 9.7 mg/dL (8.6-10.3); Carbon Dioxide 33 mEq/L (23-29); Chloride 92 mEq/L (98-107); Glucose 216 mg/dL (70-105); Osmolality,Calculated 290 (280-300); Sodium 135 mEq/L (136-145); eGFR For Non-African Americans > 60 (> 60)
[2018-03-14] MEDS: predniSONE 20 MG TABLET PO SCH (08:51)
[2018-03-14] MEDS: Furosemide 20 MG TABLET PO SCH ×2 (08:51→11:29)
[2018-03-14] MEDS: Azithromycin 250 MG TABLET PO SCH (08:52)
[2018-03-14] MEDS: Gabapentin 300 MG CAPSULE PO SCH ×3 (08:52→20:50)
[2018-03-14] MEDS: (Roflumilast [Daliresp] 500 MCG) PO SCH (08:52)
[2018-03-14] MEDS: Loratadine 10 MG TABLET PO SCH (08:52)
--- NOTE | 2018-03-14 14:25 | Internal Med Progress Note ---
Hospitalist Progress Note - Encounter Date of Encounter: 03/14/18 Time of Encounter: 10:00 - Subjective Interval History: Patient was seen and examined at bedside. He is pleasant and cooperative- requesting to ambulate encourage patient to ambulate with nursing staff. Spoke with employment evaluator/case manager Olga-patient will be ready for discharge in the a.m. after his heat has been repaired in his apartment - Exam Vitals: Temp Pulse Resp BP Pulse Ox 98.4 F 78 19 120/72 94 03/14/18 11:35 03/14/18 11:35 03/14/18 11:35 03/14/18 11:35 03/14/18 11:35 Exam: Constitutional: No fatigue, no chills, no fever(s) - EENT Nose, mouth and throat: nasal congestion - Cardiovascular Cardiovascular ROS IM: no chest pain, no diaphoresis, no dyspnea, no lightheadedness, no palpitations, no syncope - Respiratory Respiratory: cough (white, thick sputum), dyspnea, dyspnea on exertion, faint wheezing, chest congestion, no pain on inspiration, no excessive phlegm prod uction, no change in phlegm color, no pain with cough - Gastrointestinal Gastrointestinal: no abdominal pain, no diarrhea, no hematemesis, no hematochezia, no melena, no nausea, no vomiting - Musculoskeletal Musculoskeletal ROS IM: numbness (B/L feet; h/o neuropathy), tingling (B/L feet; h/o neuropathy) - Integumentary Integumentary IM: no rash, no unusual bruising - Assessment and Plan (1) Acute exacerbation of chronic obstructive airways disease Current Visit: Yes Status: Acute Assessment and Plan: Dyspnea, wheezing, and productive cough x3-5 days H/o advanced COPD requiring frequent hospitalizations Follows with pulmonology; f/u this month per patient Admitted over HS d/t increasing dyspnea on exertion, cough and wheezing Was d/c from the ED yesterday afternoon but returned with increasing dyspnea He reports that he does not have heat in his home and that this is affecting his COPD Does not appear to be in distress at this time Resting comfortably on baseline O2 4LNC, without distress Lungs; CTA/DIM throughout without wheezing; prolonged expiratory phase Treat with aerosols and oral azithromycin prophylactically Incentive spirometry Continuous telemetry CPAP at HS Supportive O2 If stable overnight consider d/c in a.m 03/13 CC feels much improved today no dyspnea he does have scattered wheezes and moist productive cough. Continue with oral azithromycin as well as bronchodilators CPAP when necessary and as sleep Maintain O2 saturation greater than 88% Continue with steroid taper Will DC in a.m. if continues to be stable and awaiting patient's heat to be turned back on 03/14 Reports that he feels well today lungs sounds have improved with faint scattered wheezes cough improved Continue with azithromycin as well as bronchodilators CPAP as needed when sleeping Maintain oxygen saturations greater than 88% Continue with steroid taper Patient will be discharged in a.m. awaiting repair of heat in his apartment (2) History of pulmonary embolism Current Visit: No Status: Chronic Assessment and Plan: per hx not in acute distress CTA chest negative for PE continue Xarelto when verified will also use as DVT prophylaxis in conjunction with EPCD's 03/13 CTA chest negative for PE Continuous Xarelto 03/14 Continue with Xarelto (3) Anxiety Current Visit: No Status: Chronic Assessment and Plan: 1 patient is calm at this time denies any anxiety 03/14 Patient appears calm denies any anxiety at this time (4) Diastolic CHF Current Visit: No Status: Chronic Assessment and Plan: Does not appear volume overloaded No respiratory distress Continue lasix when verified strict I&O, QD weight, and Fluid restriction 1.5 liter monitor renal function while inpatient d/t lasix 03/13 volume overloaded and does not appear to be respiratory distress will continue with Lasix Monitor intake and output daily weights 03/14 Does not appear volume overloaded no respiratory distress at this time we will continue with his Lasix Monitor intake and output and daily weights Continue with fluid restriction 1.5 L daily (5) Chronic respiratory failure Current Visit: Yes Status: Acute Assessment and Plan: Wears 4LNC at home remains on baseline O2 continue; titrate PRN to keep Spo2 < 90% Wears CPAP for sleep apnea; continue at HS Continuous Spo2 monitoring 03/13 Has history of COPD and is on continuous oxygen at 4 L nasal cannula at home. Currently appears to be at baseline we will continue with oxygen CPAP at night and while sleeping 03/14 Has history of COPD and is on continuous oxygen at home. Continue with current oxygen Continuous CPAP at night and while sleeping - Time Spent with Patient Total time spent is greater than 50% in coordination of care (as documented) at patient's floor/unit and/or counseling patient: Internal Medicine: Result - Labs CBC & Chem 7: 03/14/18 05:04 03/14/18 05:04 Labs: Short CBC 03/14/18 Range/Units 05:04 WBC 7.4 (4.3-11.1) K/mcL Hgb 10.8 L (12.9-16.9) g/dL Hct 34.1 L (37.5-50.1) % Plt Count 325 (140-400) K/mcL Neutrophils # 5.8 (1.6-8.9) K/mcL BMP 03/14/18 05:04 Sodium 135 L Potassium 4.0 Chloride 92 L Carbon Dioxide 33 H BUN 21 H Creatinine 0.63 L Glucose 216 H Calcium 9.7 Consult Discharge Plan - Plan Referrals: Nilson Campa [Primary Care Provider] - Cyndi Singh MD [Partnered Physician] - 03/30/18 9:45 am (4) Diastolic CHF Qualifiers: Heart failure chronicity: chronic Qualified Code(s): I50.32 - Chronic diastolic (congestive) heart failure (5) Chronic respiratory failure Qualifiers: Respiratory failure complication: unspecified whether with hypoxia or hypercapnia Qualified Code(s): J96.10 - Chronic respiratory failure, unspecified whether with hypoxia or hypercapnia
[2018-03-14] MEDS: *HR* Rivaroxaban 10 MG TABLET PO SCH (17:20)
[2018-03-14] MEDS: Furosemide 40 MG TABLET PO SCH (17:20)
[2018-03-15] MEDS: Ipratropium/Albuterol Neb 3 ML IH SCH ×3 (03:04→11:21)
[2018-03-15 05:18] LABS: Basophils % 0.1 %; Eosinophils % 0.4 %; Hematocrit 33.2 % (37.5-50.1); Hemoglobin 10.5 g/dL (12.9-16.9); Immature Granulocytes % 0.5 % (0-4); Lymphocytes # 1.3 K/mcL (0.6-4.6); Lymphocytes % 18.2 %; Mean Corpuscular HGB Conc 31.6 g/dL (31.6-35.5); Mean Corpuscular Hemoglobin 27.2 pg (28.0-33.3); Mean Platelet Volume 10.1 fL (9.4-12.4); Monocytes # 0.5 K/mcL (0.0-1.3); Monocytes % 7.1 %; Neutrophils # 5.4 K/mcL (1.6-8.9); Platelet Count 304 K/mcL (140-400); Red Blood Count 3.86 M/mcL (4.19-5.50); Red Cell Distribution Width 15.1 % (11.5-14.5); Segmented Neutrophils % 73.7 %
[2018-03-15] MEDS: predniSONE 20 MG TABLET PO SCH (09:10)
[2018-03-15] MEDS: Loratadine 10 MG TABLET PO SCH (09:11)
[2018-03-15] MEDS: Gabapentin 300 MG CAPSULE PO SCH ×2 (09:11→14:28)
[2018-03-15] MEDS: Azithromycin 250 MG TABLET PO SCH (09:11)
[2018-03-15] MEDS: Furosemide 40 MG TABLET PO SCH ×2 (09:11→12:17)
[2018-03-15] MEDS: (Roflumilast [Daliresp] 500 MCG) PO SCH (09:12)
[2018-03-15 12:03] VITALS: BP 111/65
--- NOTE | 2018-03-15 14:03 | Discharge Summary ---
- NOTES TO OUTPATIENT PROVIDER Notes to Outpatient Provider: Patient is on steroid taper Date of Encounter: 03/15/18 Time of Encounter: 13:57 - Discharge Diagnosis (1) Acute exacerbation of chronic obstructive airways disease Priority: Primary Status: Acute (2) History of pulmonary embolism Priority: Secondary Status: Chronic (3) Anxiety Priority: Secondary Status: Chronic (4) Diastolic CHF Priority: Secondary Status: Chronic Qualifiers: Heart failure chronicity: chronic Qualified Code(s): I50.32 - Chronic diastolic (congestive) heart failure (5) Chronic respiratory failure Priority: Secondary Status: Acute Qualifiers: Respiratory failure complication: unspecified whether with hypoxia or hypercapnia Qualified Code(s): J96.10 - Chronic respiratory failure, unspecified whether with hypoxia or hypercapnia Hospital course: Mr. Blanchard is a 58 year old male past history of CHF COPD oxygen dependent hyperlipidemia hypertension and pulmonary embolism. He presented [facility] emergency department after being discharged previous day for COPD as observation. Patient was experiencing productive cough with thick white sputum and wheezing and shortness of breath. He was given aerosols and steroids and was sent home on his baseline 4 L nasal cannula however upon returning home overnight he began to experience increasing respiratory distress cough and wheezing and was hypoxic with oxygen saturations 85%. He has had frequent admissions for COPD exacerbation was recently assigned nurse navigator to follow in the outpatient setting to assist with medication compliance. CTA chest was performed and was negative for PE evidence of thickening of the bronchi and lower lungs which is probably chronic but could also represent postinfectious inflammatory reaction. He was admitted and was given steroids and bronchodilators. His respirations state improved, however patient was unable to be discharged due to he had no heat at his home. clinical services professional were consulted-discussed with patient's landlord and his baseboard heat was repaired. He is currently hemodynamically stable at this time advised patient to follow- up with his primary care provider verbalized understanding and he is ready for discharge Discharge discussed with: patient - Time Spent with Patient Total time spent providing and/or coordinating discharge services: - Discharge Medications Home Medications: Oxygen 4 l NS AD 07/25/17 [History] Roflumilast [Daliresp] 500 mcg PO DAILY 07/25/17 [History] Furosemide [Lasix] 40 mg PO TID #90 tab 09/20/17 [Rx] Mometasone/Formoterol [Dulera 200 Mcg/5 Mcg Inhaler] 2 puff IH BID #1 hfa.aer.ad 09/20/17 [Rx] Omeprazole [PriLOSEC] 20 mg PO 0730 09/30/17 [History] Loratadine [Claritin] 10 mg PO DAILY #30 tablet 11/09/17 [Rx] Gabapentin [Neurontin] 300 mg PO TID 12/31/17 [History] Triamterene/HCTZ 37.5/25mg [Dyazide] 1 tab PO DAILY 12/31/17 [History] Albuterol Sulfate [Albuterol Inhaler] 2 puff IH Q4H PRN #1 inhaler 01/17/18 [Rx] Albuterol Neb [Proventil Neb] 2.5 mg IH Q4HR PRN 02/16/18 [History] Cefdinir [Omnicef] 300 mg PO BID 5 Days #10 capsule 03/01/18 [Rx] predniSONE [PredniSONE] 40 mg PO DAILY 5 Days #10 tablet 03/01/18 [Rx] Rivaroxaban [Xarelto] 20 mg PO DAILY@1700 03/06/18 [History] predniSONE [PredniSONE] 10 mg PO DAILY #8 tablet 03/07/18 [Rx] predniSONE [Prednisone] 50 mg PO DAILY #6 tablet 03/11/18 [Rx] Allergies/Adverse Reactions: Allergy/AdvReac Type Severity Reaction Status Date / Time levofloxacin AdvReac Blurry Verified 03/12/18 09:38 Vision Date of admission: 03/12/18 00:46 Primary care physician: Nilson Campa Consults: 03/15/18 10:03 Consult to Machine [employer] [CONS] Routine Reason for SW Consult: [place] RESOURCES Discharging clinician: Britt Millard Anticipated date of discharge: 03/15/18 - Constitutional Vitals: Temp Pulse Resp BP Pulse Ox 98.0 F 100 14 111/65 98 03/15/18 12:02 03/15/18 12:02 03/15/18 11:22 03/15/18 12:02 03/15/18 12:02 General appearance: Present: A&O X 3 Exam: Constitutional: No fatigue, no chills, no fever(s) - EENT Nose, mouth and throat: nasal congestion - Cardiovascular Cardiovascular ROS IM: no chest pain, no diaphoresis, no dyspnea, no lightheadedness, no palpitations, no syncope - Respiratory Respiratory: cough (white, thick sputum), dyspnea, dyspnea on exertion, faint wheezing, chest congestion, no pain on inspiration, no excessive phlegm production, no change in phlegm color, no pain with cough - Gastrointestinal Gastrointestinal: no abdominal pain, no diarrhea, no hematemesis, no hematochezia, no melena, no nausea, no vomiting - Musculoskeletal Musculoskeletal ROS IM: numbness (B/L feet; h/o neuropathy), tingling (B/L feet; h/o neuropathy) - Integumentary Integumentary IM: no rash, no unusual bruising - Patient Status Disposition: Home Health Service Condition: Fair Functional capacity at discharge: uses cane/walker Overall status at discharge: patient is back to baseline - Discharge Instructions Follow Up With: Nilson Campa [Primary Care Provider] - Cyndi Singh MD [Partnered Physician] - 03/30/18 9:45 am - Diet and Activity Activity: increase activity as tolerated Diet: advance to your usual diet
--- NOTE | 2018-03-15 14:42 | Physician Discharge Referral ---
Home Health/Hosp Referral Info Transfer to: Home Health Attending Provider: Margarita Provider in Charge Post Discharge: PCP - Diagnosis (1) Acute exacerbation of chronic obstructive airways disease Priority: Primary Status: Acute (2) History of pulmonary embolism Priority: Secondary Status: Chronic (3) Anxiety Priority: Secondary Status: Chronic (4) Diastolic CHF Priority: Secondary Status: Chronic (5) Chronic respiratory failure Priority: Secondary Status: Acute - Respiratory Orders Oxygen / L per min Smoking Cessation: Smoking cessation has been advised. For more information, call the [place] Tobacco Quit Line at 7-147-BCXW-NOW. - Diet/Nutrition Diet/Nutrition Orders: Regular - Activity Activity Orders: Up ad harish - Services Needed Following services are medically necessary services: Nursing, Home Health Aide, Physical Therapy, Occupational Therapy - Transfer Medications Home Medications: Oxygen 4 l NS AD 07/25/17 [History] Roflumilast [Daliresp] 500 mcg PO DAILY 07/25/17 [History] Furosemide [Lasix] 40 mg PO TID #90 tab 09/20/17 [Rx] Mometasone/Formoterol [Dulera 200 Mcg/5 Mcg Inhaler] 2 puff IH BID #1 hfa.aer.ad 09/20/17 [Rx] Omeprazole [PriLOSEC] 20 mg PO 0730 09/30/17 [History] Loratadine [Claritin] 10 mg PO DAILY #30 tablet 11/09/17 [Rx] Gabapentin [Neurontin] 300 mg PO TID 12/31/17 [History] Triamterene/HCTZ 37.5/25mg [Dyazide] 1 tab PO DAILY 12/31/17 [History] Albuterol Sulfate [Albuterol Inhaler] 2 puff IH Q4H PRN #1 inhaler 01/17/18 [Rx] Albuterol Neb [Proventil Neb] 2.5 mg IH Q4HR PRN 02/16/18 [History] Cefdinir [Omnicef] 300 mg PO BID 5 Days #10 capsule 03/01/18 [Rx] predniSONE [PredniSONE] 40 mg PO DAILY 5 Days #10 tablet 03/01/18 [Rx] Rivaroxaban [Xarelto] 20 mg PO DAILY@1700 03/06/18 [History] predniSONE [PredniSONE] 10 mg PO DAILY #8 tablet 03/07/18 [Rx] predniSONE [Prednisone] 50 mg PO DAILY #6 tablet 03/11/18 [Rx] Allergies/Adverse Reactions: Allergy/AdvReac Type Severity Reaction Status Date / Time levofloxacin AdvReac Blurry Verified 03/12/18 09:38 Vision Certification: Further, I certify that my clinical findings support that this patient is homebound (i.e. absences from home require considerable and taxing effort and are for medical reasons or scientologist services or infrequently or short duration when for other reasons) because: Homebound Reason: Severity of cardiac or pulmonary status limits activity tolerance Attestation: My signature below is to certify that this patient is under my care and that I, or nurse practitioner, or a physician's contact lens assistant working with me, has a [id number] encounter with this patient.
[2018-03-16] MEDS ORDERED: predniSONE 20 MG TABLET PO SCH (09:00)
--- NOTE | 2018-03-16 15:43 | Electrocardiograph Report ---
[place] [id number] Test Date: 2018-03-11 Pat Name: Jason Blanchard Department: EXAMC4 Room: 3B46 Gender: M Vendor Representatives: : 1960 Requested By: Jerome Dos Santos Order Number: [id number] Reading MD: Roni Mcbride Measurements Intervals [place] Rate: 69 P: 19 TN: 158 QRS: 10 QRSD: 98 T: 38 QT: 423 QTc: 454 Interpretive Statements Sinus rhythm Electronically Signed On 03-16-2018 15:41:29 EDT by Roni Mcbride
[2018-03-21] MEDS ORDERED: predniSONE 20 MG TABLET PO SCH (09:00)
[2018-03-26] MEDS ORDERED: predniSONE 20 MG TABLET PO SCH (09:00)
[2018-03-31] MEDS ORDERED: predniSONE 10 MG TABLET PO SCH (09:00)
== END 2018-03-15 15:22 | disposition home health service (06) ==
LOC: 3BNU 20:03 → EMEROOARM 20:03 → 3BNU 03-12 01:05
PROVIDERS: ADMIT Family Medicine; ATTEND Family Medicine

== ENCOUNTER 2018-03-20 13:20 | Observation (INO) ==
[2018-03-20] MEDS ORDERED: methylPREDNISolone 125 MG/2 ML VIAL IVP ONE (13:45)
[2018-03-20] MEDS ORDERED: Ipratropium/Albuterol Neb 3 ML IH ONE (13:45)
[2018-03-20] MEDS ORDERED: Isovue-370 500 ML INFUS..BTL IV ONE ×2 (13:47→13:48)
[2018-03-20 14:38] LABS: Basophils % 0.1 %; Eosinophils % 0.3 %; Hematocrit 40.1 % (37.5-50.1); Immature Granulocytes % 0.4 % (0-4); Lymphocytes # 0.6 K/mcL (0.6-4.6); Lymphocytes % 3.8 %; Mean Corpuscular HGB Conc 32.2 g/dL (31.6-35.5); Mean Corpuscular Hemoglobin 27.2 pg (28.0-33.3); Mean Corpuscular Volume 84.6 fL (83.0-100.0); Mean Platelet Volume 9.8 fL (9.4-12.4); Monocytes # 0.4 K/mcL (0.0-1.3); Monocytes % 2.4 %; Platelet Count 368 K/mcL (140-400); Red Blood Count 4.74 M/mcL (4.19-5.50); Red Cell Distribution Width 15.1 % (11.5-14.5)
--- NOTE | 2018-03-20 14:40 | Emergency Department Note ---
Disposition Clinical Impression: HCAP (healthcare-associated pneumonia), Hypoxia Disposition: Admitted As Inpatient Condition: Fair General Adult HPI - General Chief complaint: ED Shortness of Breath/Dyspnea Stated complaint: Possible pneumonia Time Seen by Provider: 03/20/18 13:32 Source: patient Mode of arrival: ambulatory Limitations: no limitations Nursing Notes Reviewed: Yes Vital Signs Reviewed: Yes - History of Present Illness HPI Narrative: 58-year-old male with significant past medical history of COPD currently on 4 L nasal cannula presenting to the emergency department chief complaint shortness o f breath. Patient states he was here approximately 1 week ago and admitted and treated for pneumonia. He has been using his nebulizer treatments every 4 hours and completed the outpatient antibiotics as prescribed to him. Patient states over the past few days he has had increased shortness of breath. He has had cough but has been unable to produce any sputum. Denies any fevers at home but does state he had some abdominal pain starting last evening. Patient has a known umbilical hernia. He states he noted a in color around this area today as well. Patient denies any nausea or vomiting at this time. Denies any changes in his bowel habits. Pain Scale: 2 - Related Data Home Medications Medication Instructions Recorded Confirmed Oxygen 4 l NS AD 07/25/17 03/20/18 Roflumilast [Daliresp] 500 mcg PO DAILY 07/25/17 03/20/18 Omeprazole [PriLOSEC] 20 mg PO 0730 09/30/17 03/20/18 Gabapentin [Neurontin] 300 mg PO TID 12/31/17 03/20/18 Triamterene/HCTZ 37.5/25mg 1 tab PO DAILY 12/31/17 03/20/18 [Dyazide] Albuterol Neb [Proventil Neb] 2.5 mg IH Q4HR PRN 02/16/18 03/20/18 Rivaroxaban [Xarelto] 20 mg PO DAILY@1700 03/06/18 03/20/18 predniSONE [PredniSONE] 20 mg PO AD 03/20/18 03/20/18 Previous Rx's Medication Instructions Recorded Furosemide [Lasix] 40 mg PO TID #90 tab 09/20/17 Mometasone/Formoterol [Dulera 200 2 puff IH BID #1 hfa.aer.ad 09/20/17 Mcg/5 Mcg Inhaler] Loratadine [Claritin] 10 mg PO DAILY #30 tablet 11/09/17 Albuterol Sulfate [Albuterol 2 puff IH Q4H PRN #1 inhaler 01/17/18 Inhaler] Allergies Allergy/AdvReac Type Severity Reaction Status Date / Time levofloxacin AdvReac Blurry Verified 03/20/18 13:24 Vision All systems ED: reviewed and negative except as stated. Constitutional: Denies: fever, chills, weakness Eyes: Reports: as per HPI ENT ED: Reports: as per HPI Cardiovascular: Reports: chest pain, dyspnea on exertion. Denies: palpitations Respiratory: Reports: cough, dyspnea. Denies: hemoptysis, stridor Gastrointestinal: Reports: abdominal pain. Denies: nausea, vomiting Genitourinary: Reports: as per HPI Musculoskeletal: Reports: as per HPI Integumentary: Reports: as per HPI Neurological: Denies: weakness, numbness, paresthesias Psychiatric: Reports: as per HPI Endocrine: Reports: as per HPI Hematological/Lymphatic: Reports: as per HPI Allergic/Immunologic: Reports: as per HPI Past Medical History - Past Medical History Attestation: Yes The following information was validated with the patient. Medical history: Reports: CHF, COPD, hyperlipidemia, hypertension, pulmonary embolus Surgical history: Reports: no surgical history Psychiatric history: Reports: anxiety, depression - Social History Smoking Status: Former smoker Smokeless Tobacco Status: No Alcohol use: Reports: none Drug use: Reports: none Physical Exam - General Limitations: no limitations General appearance: alert - Head Head exam: atraumatic, normocephalic, normal inspection - Eye Eye exam: Present: normal appearance. Absent: scleral icterus, conjunctival injection - ENT ENT exam: normal exam, mucous membranes moist - Neck Neck exam: Present: normal inspection, full ROM. Absent: tenderness, meningismus - Chest Chest inspection: Present: normal inspection, symmetric chest wall rise. Absent: tenderness, rash - Respiratory Respiratory exam: Present: other (Coarse breath sounds throughout. Expiratory wheezing heard) - Cardiovascular Cardiovascular exam: Present: normal rhythm, tachycardia, normal heart sounds - Abdominal Exam Abdominal exam: Present: tenderness (Mild tenderness to palpation on the umbilicus.), hernia (Umbilical hernia with bluish discoloration noted.). Absent: guarding, rebound, rigidity - Extremities Exam Extremities exam: Present: normal inspection, full ROM - Neurological Exam Neurological exam: Present: alert, oriented X3 - Psychiatric Psychiatric exam: Present: normal affect, normal mood - Skin Skin exam: Present: warm, intact Course Course Narrative: 58-year-old male presenting for shortness of breath and cough. Concern for his pneumonia coming back. Patient also having some abdominal pain and discoloration around his umbilicus. In the room patient is 96% on his 4 L nasal cannula. He is also tachycardic. Afebrile here. Alert and oriented 3. Physical exam shows coarse breath sounds with expiratory wheezing and a bluish discoloration around his umbilicus. His abdomen is nontender and nonsurgical. At this time will plan to work him up multiple perspectives including a CTA of the chest, and CT of abdomen and pelvis. Also obtain basic laboratory analysis including troponin, EKG. Disposition most likely admission but pending results. Patient agrees with this plan. - Reevaluation(s) Reevaluation #1: Patient's laboratory analysis shows leukocytosis at 14.7. CT of the abdomen and pelvis shows hernia but no strangulation or concern for ischemia or inflammation. CT a of the chest does not show any pulmonary embolus but does show bilateral pneumonia. Due to patient's hypoxia upon arrival and pneumonia found on CT we will provide the patient with vancomycin and Zosyn for healthcare acquired pneumonia. Patient remains alert and oriented 3 and hemodynamically stable. At this time will plan to admit the patient for further treatment. I spoke with the hospitalist therapeutic recreation leader Dr. Mejias who agrees to accept the patient at this time. Patient agrees with this plan. Vital Signs Temperature 98.0 F 03/20/18 13:22 Pulse Rate 127 03/20/18 13:22 Respiratory Rate 22 03/20/18 13:22 Blood Pressure 138/86 03/20/18 13:22 O2 Sat by Pulse Oximetry 94 03/20/18 13:22 Temperature 98.0 F 03/20/18 13:48 Pulse Rate 89 03/20/18 18:35 Respiratory Rate 18 03/20/18 18:35 Blood Pressure 122/87 03/20/18 18:35 O2 Sat by Pulse Oximetry 96 03/20/18 18:35 Oxygen Delivery Oxygen Delivery Nasal Cannula Medical Decision Making - Lab Data Result diagrams: 03/20/18 14:14 03/20/18 14:14 Lab Results 03/20/18 03/20/18 03/20/18 Range/Units 14:14 14:14 14:14 WBC 14.7 H D (4.3-11.1) K/mcL RBC 4.74 (4.19-5.50) M/mcL Hgb 12.9 D (12.9-16.9) g/dL Hct 40.1 (37.5-50.1) % MCV 84.6 (83.0-100.0) fL MCH 27.2 L (28.0-33.3) pg MCHC 32.2 (31.6-35.5) g/dL RDW 15.1 H (11.5-14.5) % Plt Count 368 (140-400) K/mcL MPV 9.8 (9.4-12.4) fL Immature Gran % 0.4 (0-4) % Seg Neutrophils % 93.0 % Lymphocytes % 3.8 % Monocytes % 2.4 % Eosinophils % 0.3 % Basophils % 0.1 % Neutrophils # 13.7 H (1.6-8.9) K/mcL Lymphocytes # 0.6 (0.6-4.6) K/mcL Monocytes # 0.4 (0.0-1.3) K/mcL Eosinophils # 0.0 (0.0-0.6) K/mcL Basophils # 0.0 (0.0-0.2) K/mcL Sodium 135 L (136-145) mEq/L Potassium 3.4 L (3.5-5.1) mEq/L Chloride 93 L (98-107) mEq/L Carbon Dioxide 34 H (23-29) mEq/L BUN 24 H (6-20) mg/dL Creatinine 0.66 L (0.70-1.30) mg/dL Est GFR ( Amer) > 60 (> 60) Est GFR (Non-Af Amer) > 60 (> 60) BUN/Creatinine Ratio 36 H (6-26) Glucose 124 H (70-105) mg/dL Calculated Osmolality 285 (280-300) Lactic Acid 1.4 (0.5-2.2) mmol/L Calcium 10.0 (8.6-10.3) mg/dL Troponin I < 0.03 (< 0.04) ng/mL B-Natriuretic Peptide (Less than 100) pg/mL 03/20/18 Range/Units 14:14 WBC (4.3-11.1) K/mcL RBC (4.19-5.50) M/mcL Hgb (12.9-16.9) g/dL Hct (37.5-50.1) % MCV (83.0-100.0) fL MCH (28.0-33.3) pg MCHC (31.6-35.5) g/dL RDW (11.5-14.5) % Plt Count (140-400) K/mcL MPV (9.4-12.4) fL Immature Gran % (0-4) % Seg Neutrophils % % Lymphocytes % % Monocytes % % Eosinophils % % Basophils % % Neutrophils # (1.6-8.9) K/mcL Lymphocytes # (0.6-4.6) K/mcL Monocytes # (0.0-1.3) K/mcL Eosinophils # (0.0-0.6) K/mcL Basophils # (0.0-0.2) K/mcL Sodium (136-145) mEq/L Potassium (3.5-5.1) mEq/L Chloride (98-107) mEq/L Carbon Dioxide (23-29) mEq/L BUN (6-20) mg/dL Creatinine (0.70-1.30) mg/dL Est GFR ( Amer) (> 60) Est GFR (Non-Af Amer) (> 60) BUN/Creatinine Ratio (6-26) Glucose (70-105) mg/dL Calculated Osmolality (280-300) Lactic Acid (0.5-2.2) mmol/L Calcium (8.6-10.3) mg/dL Troponin I (< 0.04) ng/mL B-Natriuretic Peptide 37 (Less than 100) pg/mL Attestation Statement - Attestation Attestation: I examined this patient and my medical decision-making was reviewed with the Resident Physician. I agree with the documented findings, disposition and treatment plan as described except to the extent set forth below. Findings consistent with possible worsening pneumonia. Elevated white blood cell count. We will proceed with admission, antibiotics, of note there is no umbilical hernia but there is no evidence of strength or lesion or incarceration on CT scan. This is reducible however just seems to be worsening per the patient's history. Will need outpatient surgical consultation and monitoring as an inpatient. Will be admitted for further management workup.
[2018-03-20 14:55] LABS: Hemoglobin 12.9 g/dL (12.9-16.9); Neutrophils # 13.7 K/mcL (1.6-8.9)
[2018-03-20 14:56] LABS: BUN/Creatinine Ratio 36 (6-26); Blood Urea Nitrogen 24 mg/dL (6-20); Carbon Dioxide 34 mEq/L (23-29); Chloride 93 mEq/L (98-107); Glucose 124 mg/dL (70-105); Osmolality,Calculated 285 (280-300); Potassium 3.4 mEq/L (3.5-5.1); Sodium 135 mEq/L (136-145); Troponin I < 0.03 ng/mL (< 0.04); eGFR For Non-African Americans > 60 (> 60)
[2018-03-20] MEDS ORDERED: Piperacillin/Tazobactam 3.375 GM in 0.9 % Sodium Chloride Mini Bag 100 ML IVPB ONE (15:33)
--- NOTE | 2018-03-20 18:33 | Electrocardiograph Report ---
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
[2018-03-21] MEDS ORDERED: Naloxone 0.4 MG/ML INJ IVP PRN (00:02)
[2018-03-21] MEDS ORDERED: Albuterol 2.5 MG/3 ML NEBULIZER IH PRN (00:02)
[2018-03-21] MEDS ORDERED: Acetaminophen 325 MG TABLET PO PRN (00:02)
[2018-03-21] MEDS ORDERED: predniSONE 20 MG TABLET PO SCH (00:15)
[2018-03-21] MEDS: Azithromycin 500 MG in D5% in Water 250 ML IVPB SCH (01:21)
[2018-03-21] MEDS: Ipratropium/Albuterol Neb 3 ML IH SCH ×5 (03:45→19:58)
[2018-03-21 04:10] LABS: Hematocrit 35.7 % (37.5-50.1); Immature Granulocytes % 0.7 % (0-4); Lymphocytes # 0.8 K/mcL (0.6-4.6); Lymphocytes % 11.7 %; Mean Corpuscular HGB Conc 31.7 g/dL (31.6-35.5); Mean Corpuscular Hemoglobin 26.8 pg (28.0-33.3); Mean Corpuscular Volume 84.8 fL (83.0-100.0); Mean Platelet Volume 9.9 fL (9.4-12.4); Monocytes # 0.3 K/mcL (0.0-1.3); Monocytes % 3.6 %; Platelet Count 348 K/mcL (140-400); Red Blood Count 4.21 M/mcL (4.19-5.50); Red Cell Distribution Width 14.9 % (11.5-14.5)
[2018-03-21 04:25] LABS: Neutrophils # 6.1 K/mcL (1.6-8.9)
[2018-03-21 04:26] LABS: Hemoglobin 11.3 g/dL (12.9-16.9)
[2018-03-21 04:28] LABS: Alanine Aminotransferase 16 Units/L (7-52); Albumin 3.9 g/dL (3.5-5.7); Albumin/Globulin Ratio 1.8 (1.1-2.2); Alkaline Phosphatase 61 Units/L (34-104); Aspartate Amino Transferase 10 Units/L (13-39); BUN/Creatinine Ratio 35 (6-26); Bilirubin,Total 0.3 mg/dL (0.3-1.0); Blood Urea Nitrogen 21 mg/dL (6-20); Calcium 9.4 mg/dL (8.6-10.3); Carbon Dioxide 32 mEq/L (23-29); Chloride 94 mEq/L (98-107); Globulin 2.2 g/dL (2.4-3.5); Glucose 193 mg/dL (70-105); Magnesium 2.3 mg/dL (1.6-2.6); Osmolality,Calculated 284 (280-300); Potassium 3.9 mEq/L (3.5-5.1); Sodium 133 mEq/L (136-145); Total Protein 6.1 g/dL (6.4-8.9); eGFR For Non-African Americans > 60 (> 60)
--- NOTE | 2018-03-21 04:54 | Internal Med History&Physical ---
Date of Encounter: 03/20/18 Time of Encounter: 23:15 Internal Medicine - H&P: HPI Chief complaint: difficulty breathing Admitted From: Emergency Dept Plans for Post Hospital Care: Home History of present illness: Mr. Power is a 58 year old male who presents to the ER tonight with complaints of worsening dyspnea, cough, and weakness. He was recently hospitalized and discharged from here about a week ago for COPD exacerbation. Because of his worsening symptoms, patient came to ER for evaluation. He had a CT of the chest performed which was interpreted by the ER as pneumonia. However, radiology did not interpre it as pneumonia but, rather, as chronic interstitial changes and severe COPD/emphysema. Nonetheless, patient was admitted to hospitalist service for further workup and care. Upon my assessment of the patient, patient reiterates the above history of coughing, shortness of breath, weakness. He has had no worsening wheezing or any increasing FiO2 requirement at home. He denies any fevers, chills, or night sweats. He denies any nausea, vomiting, or diarrhea. Appetite and fluid intake have decreased, however. He also has had worsening dyspnea with exertion easily relieved by oxygen. He denies any abdominal pain, vomiting, or diarrhea. Patient remains on a steroid taper as previously prescribed from last week's discharge, and he wears oxygen at home chronically at 3-4 L per nasal cannula. Past Med Surg Social Fam HX - Past Medical History Attestation: Yes The following information was validated with the patient. Source: patient, old records reviewed Medical history: CHF, COPD, hyperlipidemia, hypertension, pulmonary embolus Additional medical history: umbilical hernia Psychiatric history: anxiety, depression - Past Surgical History Surgical History: no surgical history - Social History Smoking Status: Former smoker Smokeless Tobacco Status: No Alcohol use: none Drug use: none Current living situation: Home - Independent Activity Level: Independent ambulation Recent Out of Country Travel Within the Last 8 Weeks: No - Family History Father Name: ashlee power Living Status: Cause of : colon cancer Hx Family Cancer: Yes (colon) Mother Name: vincenzo power Living Status: Hx Family Cancer: Yes Internal Medicine - H&P: Meds Oxygen 4 l NS AD 07/25/17 [History] Roflumilast [Daliresp] 500 mcg PO DAILY 07/25/17 [History] Furosemide [Lasix] 40 mg PO TID #90 tab 09/20/17 [Rx] Mometasone/Formoterol [Dulera 200 Mcg/5 Mcg Inhaler] 2 puff IH BID #1 hfa.aer.ad 09/20/17 [Rx] Omeprazole [PriLOSEC] 20 mg PO 0730 09/30/17 [History] Loratadine [Claritin] 10 mg PO DAILY #30 tablet 11/09/17 [Rx] Gabapentin [Neurontin] 300 mg PO TID 12/31/17 [History] Triamterene/HCTZ 37.5/25mg [Dyazide] 1 tab PO DAILY 12/31/17 [History] Albuterol Sulfate [Albuterol Inhaler] 2 puff IH Q4H PRN #1 inhaler 01/17/18 [Rx] Albuterol Neb [Proventil Neb] 2.5 mg IH Q4HR PRN 02/16/18 [History] Rivaroxaban [Xarelto] 20 mg PO DAILY@1700 03/06/18 [History] predniSONE [PredniSONE] 20 mg PO AD 03/20/18 [History] Allergy/AdvReac Type Severity Reaction Status Date / Time levofloxacin AdvReac Blurry Verified 03/20/18 13:24 Vision - Constitutional Constitutional: no chills, no fever(s), no night sweats - EENT Eyes: no blurry vision, no change in vision Ears: no ear pain, no tinnitus Nose, mouth and throat: nasal congestion, no sinus pressure, no sore throat - Cardiovascular Cardiovascular ROS IM: dyspnea, dyspnea on exertion, no chest pain, no edema, no orthopnea, no palpitations, no paroxysmal nocturnal dyspnea, no syncope - Respiratory Respiratory: cough, dyspnea, dyspnea on exertion, no hemoptysis, no wheezing, no pain on inspiration, no chest congestion, no excessive phlegm production, no change in phlegm color, no pain with cough - Gastrointestinal Gastrointestinal: no abdominal pain, no diarrhea, no hematemesis, no hematochezia, no melena, no vomiting - Genitourinary Genitourinary ROS male: no dysuria, no flank pain, no hematuria - Musculoskeletal Musculoskeletal ROS IM: no arthralgias, no back pain - Integumentary Integumentary IM: no rash, no jaundice - Neurological Neurological ROS: no dizziness, no focal weakness, no frequent falls - Psychiatric Psychiatric: no anxiety, no depression - Endocrine Endocrine IM: no polydipsia, no polyuria - Hematologic/Lymphatic Hematologic/Lymphatic: no easy bruising, no lymphadenopathy - Allergic/Immunologic Allergic/Immunologic: wheezing, no GI upset with certain foods - Constitutional Vitals: Temp Pulse Resp BP Pulse Ox 97.8 F 77 20 129/79 96 03/21/18 03:34 03/21/18 03:34 03/21/18 03:45 03/21/18 03:34 03/21/18 03:45 General appearance: Present: cooperative, mild distress, A&O X 3, pleasant, answers questions appropriately Exam: see below - Head Head exam: Present: atraumatic, normal inspection - Eye Eye exam: Present: EOMI, PERRL. Absent: scleral icterus Pupils: Present: normal accommodation - ENT ENT exam: Present: mucous membranes dry, normal exam, normal external ear exam, normal oropharynx - Neck Neck exam general surgery: Present: full ROM, supple. Absent: tenderness, nuchal rigidity, thyromegaly - Respiratory Respiratory exam: Present: prolonged expiratory phase, rhonchi. Absent: chest wall tenderness, rales, respiratory distress, wheezes - Cardiovascular Cardiovascular exam: Present: RRR, +S1, +S2. Absent: diastolic murmur, systolic murmur - GI/Abdominal GI/Abdominal exam: Present: soft. Absent: guarding, hepatomegaly, rebound, splenomegaly, tenderness - Extremities Exam Extremities exam: Present: full ROM, warm, radial pulses palpable and symmetrical. Absent: calf tenderness, joint swelling, pedal edema, tenderness - Back Exam Back exam: Absent: CVA tenderness (L), CVA tenderness (R) - Neurological Exam Neurological exam: Present: alert, oriented X3, no focal deficits - Psychiatric Psychiatric exam: Present: normal affect, normal mood - Skin Skin exam: Present: dry, intact, warm Internal Med - H&P Results - Labs CBC & Chem 7: 03/21/18 03:40 03/21/18 03:40 Labs: Short CBC 03/20/18 03/21/18 Range/Units 14:14 03:40 WBC 14.7 H D 7.2 D (4.3-11.1) K/mcL Hgb 12.9 D 11.3 L D (12.9-16.9) g/dL Hct 40.1 35.7 L (37.5-50.1) % Plt Count 368 348 (140-400) K/mcL Neutrophils # 13.7 H 6.1 (1.6-8.9) K/mcL BMP 03/20/18 03/21/18 14:14 03:40 Sodium 135 L 133 L Potassium 3.4 L 3.9 Chloride 93 L 94 L Carbon Dioxide 34 H 32 H BUN 24 H 21 H Creatinine 0.66 L 0.60 L Glucose 124 H 193 H Calcium 10.0 9.4 Cardiac Enzymes 03/20/18 Range/Units 14:14 Troponin I < 0.03 (< 0.04) ng/mL Liver Function 03/21/18 Range/Units 03:40 Total Bilirubin 0.3 (0.3-1.0) mg/dL AST 10 L (13-39) Units/L ALT 16 (7-52) Units/L Alkaline Phosphatase 61 (34-104) Units/L Albumin 3.9 (3.5-5.7) g/dL - EKG Data -: EKG Interpreted by Myself - EKG Data Prior EKG available for review: no EKG comments: 03/21/18 05:02 Sinus tachycardia; no acute ST-T changes - Impressions ITS Impressions Abdomen/Pelvis CT 03/20/18 13:47 IMPRESSION: 1. No pulmonary embolism. 2. Advanced centrilobular emphysema. Scattered reticular opacities are stable from prior imaging indicating chronic interstitial change. 3. Umbilical hernia containing a single loop of small bowel. No associated obstruction, and no mucosal inflammation is detected. D/ / Dylon Carlson MD / Dylon Carlson MD Interpreting Provider: Dylon Carlson MD Chest CTA 03/20/18 13:48 IMPRESSION: 1. No pulmonary embolism. 2. Advanced centrilobular emphysema. Scattered reticular opacities are stable from prior imaging indicating chronic interstitial change. 3. Umbilical hernia containing a single loop of small bowel. No associated obstruction, and no mucosal inflammation is detected. D/ / Dylon Carlson MD / Dylon Carlson MD Interpreting Provider: Dylon Carlson MD - Diagnostic Studies CT scan - chest Status: image reviewed by me (Report reviewed as well -- no PE; severe emphysema) - Assessment and plan (1) Acute on chronic respiratory failure with hypercapnia Current Visit: Yes Status: Acute Assessment and plan: 1. Will continue oxygen and home BiPap as needed. 2. He is not wheezing and I do not feel he needs steroids other than his tapering dose. 3. Will place on Rocephin and Zithromax along with scheduled and PRN nebulized treatments. 4. I am not convinced he has HCAP/pneumonia. 5. Follow clinically and consult pulmonary if he fails to improve. (2) HTN (hypertension) Current Visit: Yes Status: Chronic Assessment and plan: 1. Continue home BP meds as appropriate. 2. Monitor BP and adjust meds as necessary. Qualifiers: Hypertension type: essential hypertension Qualified Code(s): I10 - Essential (primary) hypertension (3) Pulmonary embolism Current Visit: Yes Status: Chronic Assessment and plan: 1. Patient has history of PE. 2. Continue home dose of Xarelto. 3. I have low clinical suspicion he has new/acute PE. If he fails to improve or worsens clinically, consider CTA chest to rule out acute PE. Qualifiers: Pulmonary embolism type: other Chronicity: unspecified Acute cor pulmonale presence: without acute cor pulmonale Qualified Code(s): I26.99 - Other pulmonary embolism without acute cor pulmonale (4) DVT prophylaxis Current Visit: Yes Status: Acute Assessment and plan: 1. Continue home dose of Xarelto.
[2018-03-21] MEDS: Budesonide/Formoterol 160/4.5 1 PUFF INH IH SCH ×2 (07:27→19:58)
[2018-03-21] MEDS: Loratadine 10 MG TABLET PO SCH (07:58)
[2018-03-21] MEDS: cefTRIAXone 1,000 MG in Water for inj. (sterile) 20 ML 10 ML IVP SCH (07:58)
[2018-03-21] MEDS: Furosemide 20 MG TABLET PO SCH ×3 (07:58→20:53)
[2018-03-21] MEDS: Gabapentin 300 MG CAPSULE PO SCH ×3 (07:58→20:53)
[2018-03-21] MEDS: (Roflumilast [Daliresp] 500 MCG) PO SCH (08:00)
--- NOTE | 2018-03-21 11:01 | Internal Med Progress Note ---
Hospitalist Progress Note - Encounter Date of Encounter: 03/21/18 Time of Encounter: 10:58 - Subjective Interval History: Mr. Blanchard is a 58 y/o M with a known past medical history of COPD, chronic hypoxic respiratory failure on 3 L oxygen dependent at home, chronic diastolic congestive heart failure, PE who is currently onset of the for anticoagulation who recently admitted here for COPD exacerbation discharged on 03/15/2018 now he came back to the ER last night with the worsening shortness of breath with cough and expectoration. Today patient states he still feeling rough. Still has cough with expectoration. - Exam Vitals: Temp Pulse Resp BP Pulse Ox 97.8 F 76 19 127/66 93 03/21/18 08:50 03/21/18 08:50 03/21/18 08:50 03/21/18 08:50 03/21/18 08:50 Exam: Gen: Alert, awake, Oriented to time,place and person Chest: Diminished breath sounds B/L, Moderate wheezing, No crackles, No rales, Ronchi+, junkie breath sounds Heart: S1S2+ RRR No murmurs Abd: Soft, NT, BS +, No organomegaly Ext: No edema, pulses are palpable, No calf tenderness Neuro : Benign findings Skin: No rash. - Assessment and Plan (1) Acute exacerbation of chronic obstructive airways disease Current Visit: No Status: Acute Assessment and Plan: Continue Duoneb and O2 Since he still has moderate wheezing, started him on IV steroids cont empirical antibiotic Rocephin and azithromycin will obtain respiratory viral panel, step pneumonia and Legionella antigen also sent for sputum culture (2) Bronchitis Current Visit: No Status: Acute Assessment and Plan: His symptoms are concerning for bacterial purulent bronchitis will obtain respiratory viral panel, step pneumonia and Legionella antigen also sent for sputum culture continue empirical antibiotic (3) DVT prophylaxis Current Visit: Yes Status: Acute Assessment and Plan: Continue home dose of Xarelto. (4) Pulmonary embolism Current Visit: Yes Status: Chronic Assessment and Plan: Resumed home medication Xarelto (5) HTN (hypertension) Current Visit: Yes Status: Chronic Assessment and Plan: Stable with current regimen continue home medications (6) Chronic respiratory failure with hypoxia and hypercapnia Current Visit: Yes Status: Acute Assessment and Plan: Currently on 3 lit oxygen which is at his baseline Continue BiPAP at bedtime - Time Spent with Patient Total time spent is greater than 50% in coordination of care (as documented) at patient's floor/unit and/or counseling patient: Internal Medicine: Result - Labs CBC & Chem 7: 03/21/18 03:40 03/21/18 03:40 Labs: Short CBC 03/20/18 03/21/18 Range/Units 14:14 03:40 WBC 14.7 H D 7.2 D (4.3-11.1) K/mcL Hgb 12.9 D 11.3 L D (12.9-16.9) g/dL Hct 40.1 35.7 L (37.5-50.1) % Plt Count 368 348 (140-400) K/mcL Neutrophils # 13.7 H 6.1 (1.6-8.9) K/mcL BMP 03/20/18 03/21/18 14:14 03:40 Sodium 135 L 133 L Potassium 3.4 L 3.9 Chloride 93 L 94 L Carbon Dioxide 34 H 32 H BUN 24 H 21 H Creatinine 0.66 L 0.60 L Glucose 124 H 193 H Calcium 10.0 9.4 Cardiac Enzymes 03/20/18 Range/Units 14:14 Troponin I < 0.03 (< 0.04) ng/mL Liver Function 03/21/18 Range/Units 03:40 Total Bilirubin 0.3 (0.3-1.0) mg/dL AST 10 L (13-39) Units/L ALT 16 (7-52) Units/L Alkaline Phosphatase 61 (34-104) Units/L Albumin 3.9 (3.5-5.7) g/dL - Impressions Impressions Abdomen/Pelvis CT 03/20/18 13:47 IMPRESSION: 1. No pulmonary embolism. 2. Advanced centrilobular emphysema. Scattered reticular opacities are stable from prior imaging indicating chronic interstitial change. 3. Umbilical hernia containing a single loop of small bowel. No associated obstruction, and no mucosal inflammation is detected. D/ / Dylon Carlson MD / Dylon Carlson MD Interpreting Provider: Dylon Carlson MD Chest CTA 03/20/18 13:48 IMPRESSION: 1. No pulmonary embolism. 2. Advanced centrilobular emphysema. Scattered reticular opacities are stable from prior imaging indicating chronic interstitial change. 3. Umbilical hernia containing a single loop of small bowel. No associated obstruction, and no mucosal inflammation is detected. D/ / Dylon Carlson MD / Dylon Carlson MD Interpreting Provider: Dylon Carlson MD Consult Discharge Plan - Plan Referrals: Martinez Rosa MD [Primary Care Provider] - (4) Pulmonary embolism Qualifiers: Pulmonary embolism type: other Chronicity: unspecified Acute cor pulmonale presence: without acute cor pulmonale Qualified Code(s): I26.99 - Other pulmonary embolism without acute cor pulmonale (5) HTN (hypertension) Qualifiers: Hypertension type: essential hypertension Qualified Code(s): I10 - Essential (primary) hypertension
[2018-03-21] MEDS: Acetylcysteine 10% 2 ML INHSOL IH SCH ×2 (11:13→18:15)
[2018-03-21] MEDS: MethylPREDNISolone 40 MG/ML VIAL IVP SCH ×2 (11:19→16:29)
[2018-03-21] MEDS ORDERED: *HR* Rivaroxaban 10 MG TABLET PO SCH (17:00)
[2018-03-22] MEDS: Ipratropium/Albuterol Neb 3 ML IH SCH ×4 (00:17→11:20)
[2018-03-22] MEDS: Acetylcysteine 10% 2 ML INHSOL IH SCH ×2 (00:18→08:14)
[2018-03-22] MEDS: MethylPREDNISolone 40 MG/ML VIAL IVP SCH ×2 (01:11→08:40)
[2018-03-22] MEDS: Azithromycin 500 MG in D5% in Water 250 ML IVPB SCH (01:12)
[2018-03-22 07:14] VITALS: BP 113/72
[2018-03-22] MEDS: Budesonide/Formoterol 160/4.5 1 PUFF INH IH SCH (08:13)
[2018-03-22] MEDS: cefTRIAXone 1,000 MG in Water for inj. (sterile) 20 ML 10 ML IVP SCH (08:39)
[2018-03-22] MEDS: Furosemide 20 MG TABLET PO SCH ×2 (08:40→14:40)
[2018-03-22] MEDS: Loratadine 10 MG TABLET PO SCH (08:40)
[2018-03-22] MEDS: Gabapentin 300 MG CAPSULE PO SCH ×2 (08:40→14:40)
[2018-03-22] MEDS: (Roflumilast [Daliresp] 500 MCG) PO SCH (08:41)
--- NOTE | 2018-03-22 11:54 | Discharge Summary ---
- NOTES TO OUTPATIENT PROVIDER Notes to Outpatient Provider: f/u with PCP in one week. F/u with Pulmonary in 2 weeks. If your shortness of breath worsens, please take an extra dose of Prednisone and call your PCP as well as your Geospatial Engineer Orders not resulted at time of discharge: Pending orders 03/21/18 06:00 ECG 12 lead ECG [ECG] AM 0600 Date of Encounter: 03/22/18 Time of Encounter: 11:52 - Discharge Diagnosis (1) Acute exacerbation of chronic obstructive airways disease Priority: Primary Status: Acute (2) Bronchitis Priority: Primary Status: Acute (3) DVT prophylaxis Priority: Secondary Status: Acute (4) Pulmonary embolism Priority: Secondary Status: Chronic Qualifiers: Pulmonary embolism type: other Chronicity: unspecified Acute cor pulmonale presence: without acute cor pulmonale Qualified Code(s): I26.99 - Other pulmonary embolism without acute cor pulmonale (5) HTN (hypertension) Priority: Secondary Status: Chronic Qualifiers: Hypertension type: essential hypertension Qualified Code(s): I10 - Essential (primary) hypertension (6) Chronic respiratory failure with hypoxia and hypercapnia Priority: Secondary Status: Acute Hospital course: Mr. Blanchard is a 58 y/o M with a known past medical history of COPD, chronic hypoxic respiratory failure on 3 L oxygen dependent at home, chronic diastolic congestive heart failure, PE who is currently onset of the for anticoagulation who recently admitted here for COPD exacerbation discharged on 03/15/2018 now he came back to the ER last night with the worsening shortness of breath with cough and expectoration. Patient was admitted in the hospital and started him on IV steroids and empirical antibiotic with Rocephin and azithromycin. His chest x-ray did not show any infiltrates. His symptoms are consistent with acute purulent bronchitis. Patient is currently on 3 L oxygen which is his baseline. I did notice patient has multiple hospitalization is hospital within last 3 months due to his noncompliance issues at home. I talked to the patient about this. [facility] better supervision and skill care, however patient declined and refuses to go to [facility]. He is very adamant about going home only. So I increase the patient to continue taking all his medications as scheduled, also educated him taking extra dose of prednisone if in case if he develops worsening shortness of breath. He does have BiPAP at home so counseled the patient about using BiPAP at bedtime and as needed in the day time if he gets worsening shortness of breath. Also made an appointment with the chief legal officer as an outpatient follow-up - Time Spent with Patient Total time spent providing and/or coordinating discharge services: - Discharge Medications Prescriptions: Azithromycin 250 mg PO DAILY #3 tablet GuaiFENesin ER [Mucinex] 600 mg PO BID #30 tbbp.12hr predniSONE [PredniSONE] 40 mg PO DAILY #10 tablet Home Medications: Oxygen 4 l NS AD 07/25/17 [History] Roflumilast [Daliresp] 500 mcg PO DAILY 07/25/17 [History] Furosemide [Lasix] 40 mg PO TID #90 tab 09/20/17 [Rx] Mometasone/Formoterol [Dulera 200 Mcg/5 Mcg Inhaler] 2 puff IH BID #1 hfa.aer.ad 09/20/17 [Rx] Omeprazole [PriLOSEC] 20 mg PO 0730 09/30/17 [History] Loratadine [Claritin] 10 mg PO DAILY #30 tablet 11/09/17 [Rx] Gabapentin [Neurontin] 300 mg PO TID 12/31/17 [History] Triamterene/HCTZ 37.5/25mg [Dyazide] 1 tab PO DAILY 12/31/17 [History] Albuterol Sulfate [Albuterol Inhaler] 2 puff IH Q4H PRN #1 inhaler 01/17/18 [Rx] Albuterol Neb [Proventil Neb] 2.5 mg IH Q4HR PRN 02/16/18 [History] Rivaroxaban [Xarelto] 20 mg PO DAILY@1700 03/06/18 [History] Azithromycin 250 mg PO DAILY #3 tablet 03/22/18 [Rx] GuaiFENesin ER [Mucinex] 600 mg PO BID #30 tbbp.12hr 03/22/18 [Rx] predniSONE [PredniSONE] 40 mg PO DAILY #10 tablet 03/22/18 [Rx] Allergies/Adverse Reactions: Allergy/AdvReac Type Severity Reaction Status Date / Time levofloxacin AdvReac Blurry Verified 03/20/18 13:24 Vision Date of admission: 03/20/18 18:52 Primary care physician: Martinez Rosa MD Consults: 03/20/18 22:37 Consult to Steam Tank Operator [CONS] Routine Reason for SW Consult: home o2 and home health care services - Constitutional Vitals: Temp Pulse Resp BP Pulse Ox 97.6 F 95 18 113/72 98 03/22/18 07:13 03/22/18 07:13 03/22/18 08:17 03/22/18 07:13 03/22/18 08:17 General appearance: Present: cooperative, A&O X 3, pleasant, answers questions appropriately Exam: Gen: Alert, awake, Oriented to time,place and person Chest: Diminished breath sounds B/L, Mild wheezing, No crackles, No rales, Heart: S1S2+ RRR No murmurs Abd: Soft, NT, BS +, No organomegaly Ext: No edema, pulses are palpable, No calf tenderness Neuro : Benign findings Skin: No rash. - Patient Status Disposition: Home Health Service Condition: Good Overall status at discharge: patient is back to baseline - Discharge Instructions Follow Up With: Martinez Rosa MD [Primary Care Provider] - Cindy Amato MD [Partnered Physician] - - Diet and Activity Activity: increase activity as tolerated, wear oxygen at all times Diet: low salt diet
--- NOTE | 2018-03-22 12:00 | Physician Discharge Referral ---
Home Health/Hosp Referral Info Transfer to: Home Health Provider in Charge Post Discharge: PCP - Diagnosis (1) Acute exacerbation of chronic obstructive airways disease Status: Acute (2) Bronchitis Status: Acute (3) DVT prophylaxis Status: Acute (4) Pulmonary embolism Status: Chronic (5) HTN (hypertension) Status: Chronic (6) Chronic respiratory failure with hypoxia and hypercapnia Status: Acute - Respiratory Orders Smoking Cessation: Smoking cessation has been advised. For more information, call the [place] Tobacco Quit Line at 8-002-AWMQ-NOW. - Services Needed Following services are medically necessary services: Nursing, Occupational Therapy - Transfer Medications Prescriptions: Azithromycin 250 mg PO DAILY #3 tablet GuaiFENesin ER [Mucinex] 600 mg PO BID #30 tbbp.12hr predniSONE [PredniSONE] 40 mg PO DAILY #10 tablet Home Medications: Oxygen 4 l NS AD 07/25/17 [History] Roflumilast [Daliresp] 500 mcg PO DAILY 07/25/17 [History] Furosemide [Lasix] 40 mg PO TID #90 tab 09/20/17 [Rx] Mometasone/Formoterol [Dulera 200 Mcg/5 Mcg Inhaler] 2 puff IH BID #1 hfa.aer.ad 09/20/17 [Rx] Omeprazole [PriLOSEC] 20 mg PO 0730 09/30/17 [History] Loratadine [Claritin] 10 mg PO DAILY #30 tablet 11/09/17 [Rx] Gabapentin [Neurontin] 300 mg PO TID 12/31/17 [History] Triamterene/HCTZ 37.5/25mg [Dyazide] 1 tab PO DAILY 12/31/17 [History] Albuterol Sulfate [Albuterol Inhaler] 2 puff IH Q4H PRN #1 inhaler 01/17/18 [Rx] Albuterol Neb [Proventil Neb] 2.5 mg IH Q4HR PRN 02/16/18 [History] Rivaroxaban [Xarelto] 20 mg PO DAILY@1700 03/06/18 [History] Azithromycin 250 mg PO DAILY #3 tablet 03/22/18 [Rx] GuaiFENesin ER [Mucinex] 600 mg PO BID #30 tbbp.12hr 03/22/18 [Rx] predniSONE [PredniSONE] 40 mg PO DAILY #10 tablet 03/22/18 [Rx] Allergies/Adverse Reactions: Allergy/AdvReac Type Severity Reaction Status Date / Time levofloxacin AdvReac Blurry Verified 03/20/18 13:24 Vision Certification: Further, I certify that my clinical findings support that this patient is homebound (i.e. absences from home require considerable and taxing effort and are for medical reasons or latter-day services or infrequently or short duration when for other reasons) because: Homebound Reason: Patient requires assistance of a person or device to safely leave home Attestation: My signature below is to certify that this patient is under my care and that I, or nurse practitioner, or a physician's claims assistant working with me, has a [id number] encounter with this patient.
== END 2018-03-22 15:47 | disposition home health service (06) ==
LOC: EMEROOARM 13:20 → 3BNU 13:20
PROVIDERS: ADMIT Internal Medicine; ATTEND Internal Medicine

== ENCOUNTER 2018-04-08 14:17 | Observation (INO) ==
[2018-04-08] MEDS ORDERED: Ipratropium/Albuterol Neb 3 ML IH ONE ×2 (14:26→14:46)
[2018-04-08] MEDS ORDERED: Aspirin 81 MG TAB.CHEW PO STA (14:46)
--- NOTE | 2018-04-08 14:51 | Emergency Department Note ---
Disposition Clinical Impression: Acute exacerbation of chronic obstructive airways disease, Hypokalemia, Leukocytosis Disposition: Admitted As Inpatient Condition: Fair Referrals: Martinez Rosa MD [Primary Care Provider] - Forms: ED Satisfaction Letter General Adult HPI - General Chief complaint: ED Shortness of Breath/Dyspnea Stated complaint: "pneumonia",PHYLLIS Time Seen by Provider: 04/08/18 14:23 Source: patient Limitations: no limitations Nursing Notes Reviewed: Yes Vital Signs Reviewed: Yes - History of Present Illness Pain Scale: 5 - Related Data Home Medications Medication Instructions Recorded Confirmed Oxygen 4 l NS AD 07/25/17 04/08/18 Roflumilast [Daliresp] 500 mcg PO DAILY 07/25/17 04/08/18 Omeprazole [PriLOSEC] 20 mg PO 0730 09/30/17 04/08/18 Gabapentin [Neurontin] 300 mg PO TID 12/31/17 04/08/18 Triamterene/HCTZ 37.5/25mg 1 tab PO DAILY 12/31/17 04/08/18 [Dyazide] Albuterol Neb [Proventil Neb] 2.5 mg IH Q4HR PRN 02/16/18 04/08/18 Rivaroxaban [Xarelto] 20 mg PO DAILY@1700 03/06/18 04/08/18 predniSONE [PredniSONE] 20 mg PO DAILY 04/08/18 04/08/18 Previous Rx's Medication Instructions Recorded Furosemide [Lasix] 40 mg PO TID #90 tab 09/20/17 Mometasone/Formoterol [Dulera 200 2 puff IH BID #1 hfa.aer.ad 09/20/17 Mcg/5 Mcg Inhaler] Loratadine [Claritin] 10 mg PO DAILY #30 tablet 11/09/17 Albuterol Sulfate [Albuterol 2 puff IH Q4H PRN #1 inhaler 01/17/18 Inhaler] Azithromycin 250 mg PO DAILY #3 tablet 03/22/18 GuaiFENesin ER [Mucinex] 600 mg PO BID #30 tbbp.12hr 03/22/18 Allergies Allergy/AdvReac Type Severity Reaction Status Date / Time levofloxacin AdvReac Blurry Verified 03/20/18 13:24 Vision Past Medical History - Past Medical History Medical history: Reports: CHF, COPD, hyperlipidemia, hypertension, pulmonary embolus Surgical history: Reports: no surgical history Psychiatric history: Reports: anxiety, depression - Social History Smoking Status: Former smoker Smokeless Tobacco Status: No Alcohol use: Reports: none Drug use: Reports: none Physical Exam - General Limitations: no limitations General appearance: alert, in no apparent distress Course Vital Signs Temperature 98.4 F 04/08/18 14:20 Pulse Rate 123 04/08/18 14:20 Respiratory Rate 24 04/08/18 14:20 Blood Pressure 126/85 04/08/18 14:20 O2 Sat by Pulse Oximetry 90 04/08/18 14:20 Temperature 98.4 F 04/08/18 14:32 Pulse Rate 91 04/08/18 16:37 Respiratory Rate 18 04/08/18 16:37 Blood Pressure 134/82 04/08/18 16:37 O2 Sat by Pulse Oximetry 98 04/08/18 16:37 Oxygen Delivery Oxygen Delivery Nasal Cannula Medical Decision Making - MDM Narrative Medical decision making narrative: Chest X-Ray 04/08/18 14:49 IMPRESSION: COPD with some chronic scarring in the lingula. D/ / 04/08/2018 15:17:31 Jc Carlos MD / guido Interpreting Provider: Jc Carlos MD 1600 hrs.: Patient's up and ambulatory and sats dropped to 80 some percent were in a bring him into the hospital. Impression COPD exacerbation. With hypoxia. - Lab Data Result diagrams: 04/08/18 14:35 04/08/18 14:35 Lab Results 04/08/18 04/08/18 04/08/18 Range/Units 14:35 14:35 14:35 WBC 11.2 H (4.3-11.1) K/mcL RBC 4.38 (4.19-5.50) M/mcL Hgb 11.9 L (12.9-16.9) g/dL Hct 36.8 L (37.5-50.1) % MCV 84.0 (83.0-100.0) fL MCH 27.2 L (28.0-33.3) pg MCHC 32.3 (31.6-35.5) g/dL RDW 14.9 H (11.5-14.5) % Plt Count 252 (140-400) K/mcL MPV 9.4 (9.4-12.4) fL Immature Gran % 0.4 (0-4) % Seg Neutrophils % 78.3 % Lymphocytes % 17.7 % Monocytes % 2.7 % Eosinophils % 0.7 % Basophils % 0.2 % Neutrophils # 8.8 (1.6-8.9) K/mcL Lymphocytes # 2.0 (0.6-4.6) K/mcL Monocytes # 0.3 (0.0-1.3) K/mcL Eosinophils # 0.1 (0.0-0.6) K/mcL Basophils # 0.0 (0.0-0.2) K/mcL D-Dimer (0-500) ng/mLFEU Sodium 131 L (136-145) mEq/L Potassium 3.2 L (3.5-5.1) mEq/L Chloride 87 L (98-107) mEq/L Carbon Dioxide 31 H (23-29) mEq/L BUN 17 (6-20) mg/dL Creatinine 0.70 (0.70-1.30) mg/dL Est GFR ( Amer) > 60 (> 60) Est GFR (Non-Af Amer) > 60 (> 60) BUN/Creatinine Ratio 24 (6-26) Glucose 180 H (70-105) mg/dL Calculated Osmolality 278 L (280-300) Calcium 9.6 (8.6-10.3) mg/dL Troponin I < 0.03 (< 0.04) ng/mL B-Natriuretic Peptide 58 (Less than 100) pg/mL 04/08/18 Range/Units 14:53 WBC (4.3-11.1) K/mcL RBC (4.19-5.50) M/mcL Hgb (12.9-16.9) g/dL Hct (37.5-50.1) % MCV (83.0-100.0) fL MCH (28.0-33.3) pg MCHC (31.6-35.5) g/dL RDW (11.5-14.5) % Plt Count (140-400) K/mcL MPV (9.4-12.4) fL Immature Gran % (0-4) % Seg Neutrophils % % Lymphocytes % % Monocytes % % Eosinophils % % Basophils % % Neutrophils # (1.6-8.9) K/mcL Lymphocytes # (0.6-4.6) K/mcL Monocytes # (0.0-1.3) K/mcL Eosinophils # (0.0-0.6) K/mcL Basophils # (0.0-0.2) K/mcL D-Dimer 398 (0-500) ng/mLFEU Sodium (136-145) mEq/L Potassium (3.5-5.1) mEq/L Chloride (98-107) mEq/L Carbon Dioxide (23-29) mEq/L BUN (6-20) mg/dL Creatinine (0.70-1.30) mg/dL Est GFR ( Amer) (> 60) Est GFR (Non-Af Amer) (> 60) BUN/Creatinine Ratio (6-26) Glucose (70-105) mg/dL Calculated Osmolality (280-300) Calcium (8.6-10.3) mg/dL Troponin I (< 0.04) ng/mL B-Natriuretic Peptide (Less than 100) pg/mL Attestation Statement - Attestation Attestation: This documentation is done with the assistance of Dragon dictation. Despite efforts made to ensure accuracy, there may be inaccuracies in monogram and letter paster or spelling and typographical errors. I examined this patient and my medical decision-making was reviewed with the Resident Physician. I agree with the documented findings, disposition and treatment plan as described except to the extent set forth below. Patient seen and evaluated on arrival by Dr. Khan and myself, I agree with his evaluation and management plan, I supervised the care the patient's stay. Patient comes in today with COPD exacerbation. Was just out of rehabilitation. Now is having some chest discomfort. Said history of PE in the past. These had one PE but his head about 10 CTAs of his chest which were negative. Her workup appeared treat his dyspnea use albuterol inhalers and EKG lab work and chest x-ray and reassess.
--- NOTE | 2018-04-08 14:55 | Emergency Department Note ---
Addendum entered and electronically signed by Jose Khan DO 04/08/18 16:21: MDM When the patient was ambulatory at the department on his 4 L of oxygen his oxygen saturation dropped 85%. Original Note: Disposition Clinical Impression: Acute exacerbation of chronic obstructive airways disease, Hypokalemia Leukocytosis Qualifiers: Leukocytosis type: unspecified Qualified Code(s): D72.829 - Elevated white blood cell count, unspecified Disposition: Admitted As Inpatient Condition: Fair Referrals: Mratinez Rosa MD [Primary Care Provider] - Forms: ED Satisfaction Letter Time of Disposition: 16:09 General Adult HPI - General Chief complaint: ED Shortness of Breath/Dyspnea Stated complaint: "pneumonia",PHYLLIS Time Seen by Provider: 04/08/18 14:23 Source: patient Mode of arrival: ambulatory Limitations: no limitations Nursing Notes Reviewed: Yes Vital Signs Reviewed: Yes - History of Present Illness HPI Narrative: Patient is a 58-year-old male that presents emergency Department with chest pain and shortness of breath. Patient states that the chest pain will sometimes go up into his neck. Patient states that he has had a previous history of pulmonary embolism. Patient states that this does seem somewhat similar to when he had his PE. Patient also states that he was recently diagnosed with pneumonia and has been on antibiotics. Patient states that he had acute onset of his chest pain and shortness of breath yesterday evening. Patient states that it has been steady since that time. Patient denies any hemoptysis. Patient states that he does wear 4 L of oxygen at home and his oxygen saturatio ns usually runs between 95 and 97. Pain Scale: 5 - Related Data Home Medications Medication Instructions Recorded Confirmed Oxygen 4 l NS AD 07/25/17 03/20/18 Roflumilast [Daliresp] 500 mcg PO DAILY 07/25/17 03/20/18 Omeprazole [PriLOSEC] 20 mg PO 0730 09/30/17 03/20/18 Gabapentin [Neurontin] 300 mg PO TID 12/31/17 03/20/18 Triamterene/HCTZ 37.5/25mg 1 tab PO DAILY 12/31/17 03/20/18 [Dyazide] Albuterol Neb [Proventil Neb] 2.5 mg IH Q4HR PRN 02/16/18 03/20/18 Rivaroxaban [Xarelto] 20 mg PO DAILY@1700 03/06/18 03/20/18 Previous Rx's Medication Instructions Recorded Furosemide [Lasix] 40 mg PO TID #90 tab 09/20/17 Mometasone/Formoterol [Dulera 200 2 puff IH BID #1 hfa.aer.ad 09/20/17 Mcg/5 Mcg Inhaler] Loratadine [Claritin] 10 mg PO DAILY #30 tablet 11/09/17 Albuterol Sulfate [Albuterol 2 puff IH Q4H PRN #1 inhaler 01/17/18 Inhaler] Azithromycin 250 mg PO DAILY #3 tablet 03/22/18 GuaiFENesin ER [Mucinex] 600 mg PO BID #30 tbbp.12hr 03/22/18 predniSONE [PredniSONE] 40 mg PO DAILY #10 tablet 03/22/18 Allergies Allergy/AdvReac Type Severity Reaction Status Date / Time levofloxacin AdvReac Blurry Verified 03/20/18 13:24 [facility] All systems ED: reviewed and negative except as stated. Constitutional: Denies: fever Cardiovascular: Reports: chest pain Respiratory: Reports: cough, dyspnea Gastrointestinal: Denies: abdominal pain, nausea, vomiting Past Medical History - Past Medical History Medical history: Reports: CHF, COPD, hyperlipidemia, hypertension, pulmonary embolus Surgical history: Reports: no surgical history Psychiatric history: Reports: anxiety, depression - Social History Smoking Status: Former smoker Smokeless Tobacco Status: No Alcohol use: Reports: none Drug use: Reports: none Physical Exam - General Limitations: no limitations General appearance: alert, in no apparent distress - Head Head exam: atraumatic, normocephalic - Eye Eye exam: Present: normal appearance, EOMI - Neck Neck exam: Present: normal inspection, full ROM, trachea midline - Respiratory Respiratory exam: Present: wheezes - Cardiovascular Cardiovascular exam: Present: normal rhythm, tachycardia, normal heart sounds, +S1, +S2 - Abdominal Exam Abdominal exam: Present: soft, Non-Tender, normal bowel sounds, other (Reducible umbilical hernia.) - Neurological Exam Neurological exam: Present: alert, oriented X3 - Psychiatric Psychiatric exam: Present: normal affect, normal mood - Skin Skin exam: Present: warm, dry, intact Course Vital Signs Temperature 98.4 F 04/08/18 14:20 Pulse Rate 123 04/08/18 14:20 Respiratory Rate 24 04/08/18 14:20 Blood Pressure 126/85 04/08/18 14:20 O2 Sat by Pulse Oximetry 90 04/08/18 14:20 Temperature 98.4 F 04/08/18 14:32 Pulse Rate 123 04/08/18 14:32 Respiratory Rate 16 04/08/18 15:23 Blood Pressure 126/85 04/08/18 14:32 O2 Sat by Pulse Oximetry 97 04/08/18 15:23 Oxygen Delivery Oxygen Delivery Nasal Cannula Medical Decision Making - [facility] Narrative Medical decision making narrative: Due the patient presents emergency Department with chest pain shortness breath we will obtain basic laboratory tests including CT, BMP, troponin chest x-ray EKG. We will also obtain a d-dimer and BNP. Patient be provided aspirin and a DuoNeb breathing treatment here in the emergency department. Patient's d-dimer is negative. Troponin was negative. Patient has a mildly elevated white blood cell count of 11.2. Patient has a mild hypokalemia of 3.2. Patient was given DuoNeb breathing treatments. Patient states that he is still having a significant shortness of breath and his baseline. Patient is requiring his 4 L of oxygen to maintain his oxygen saturation in the mid 90s. Patient will be ambulated throughout the department to monitor his oxygen saturations. Patient will likely need admission to the hospital due to the patient having increased work of breathing, tachypnea and requiring 4 L of oxygen. Called and spoke the admitting hospitalist and she has accepted the patient to their service. Patient be admitted to the hospital this time for further evaluation and management. - Medical Records Medical records reviewed: Yes I reviewed the patient's medical records. - Lab Data Lab results reviewed: Yes I reviewed the patient's lab results. Result diagrams: 04/08/18 14:35 04/08/18 14:35 Lab Results 04/08/18 04/08/18 04/08/18 Range/Units 14:35 14:35 14:35 WBC 11.2 H (4.3-11.1) K/mcL RBC 4.38 (4.19-5.50) M/mcL Hgb 11.9 L (12.9-16.9) g/dL Hct 36.8 L (37.5-50.1) % MCV 84.0 (83.0-100.0) fL MCH 27.2 L (28.0-33.3) pg MCHC 32.3 (31.6-35.5) g/dL RDW 14.9 H (11.5-14.5) % Plt Count 252 (140-400) K/mcL MPV 9.4 (9.4-12.4) fL Immature Gran % 0.4 (0-4) % Seg Neutrophils % 78.3 % Lymphocytes % 17.7 % Monocytes % 2.7 % Eosinophils % 0.7 % Basophils % 0.2 % Neutrophils # 8.8 (1.6-8.9) K/mcL Lymphocytes # 2.0 (0.6-4.6) K/mcL Monocytes # 0.3 (0.0-1.3) K/mcL Eosinophils # 0.1 (0.0-0.6) K/mcL Basophils # 0.0 (0.0-0.2) K/mcL D-Dimer (0-500) ng/mLFEU Sodium 131 L (136-145) mEq/L Potassium 3.2 L (3.5-5.1) mEq/L Chloride 87 L (98-107) mEq/L Carbon Dioxide 31 H (23-29) mEq/L BUN 17 (6-20) mg/dL Creatinine 0.70 (0.70-1.30) mg/dL Est GFR ( Amer) > 60 (> 60) Est GFR (Non-Af Amer) > 60 (> 60) BUN/Creatinine Ratio 24 (6-26) Glucose 180 H (70-105) mg/dL Calculated Osmolality 278 L (280-300) Calcium 9.6 (8.6-10.3) mg/dL Troponin I < 0.03 (< 0.04) ng/mL B-Natriuretic Peptide 58 (Less than 100) pg/mL 04/08/18 Range/Units 14:53 WBC (4.3-11.1) K/mcL RBC (4.19-5.50) M/mcL Hgb (12.9-16.9) g/dL Hct (37.5-50.1) % MCV (83.0-100.0) fL MCH (28.0-33.3) pg MCHC (31.6-35.5) g/dL RDW (11.5-14.5) % Plt Count (140-400) K/mcL MPV (9.4-12.4) fL Immature Gran % (0-4) % Seg Neutrophils % % Lymphocytes % % Monocytes % % Eosinophils % % Basophils % % Neutrophils # (1.6-8.9) K/mcL Lymphocytes # (0.6-4.6) K/mcL Monocytes # (0.0-1.3) K/mcL Eosinophils # (0.0-0.6) K/mcL Basophils # (0.0-0.2) K/mcL D-Dimer 398 (0-500) ng/mLFEU Sodium (136-145) mEq/L Potassium (3.5-5.1) mEq/L Chloride (98-107) mEq/L Carbon Dioxide (23-29) mEq/L BUN (6-20) mg/dL Creatinine (0.70-1.30) mg/dL Est GFR ( Amer) (> 60) Est GFR (Non-Af Amer) (> 60) BUN/Creatinine Ratio (6-26) Glucose (70-105) mg/dL Calculated Osmolality (280-300) Calcium (8.6-10.3) mg/dL Troponin I (< 0.04) ng/mL B-Natriuretic Peptide (Less than 100) pg/mL - Radiology Data Radiology results reviewed: Yes I reviewed the patient's radiology results. Chest X-Ray 04/08/18 14:49 IMPRESSION: COPD with some chronic scarring in the lingula. D/ / 04/08/2018 15:17:31 Jc Carlos MD / guido Interpreting Provider: Jc Carlos MD - EKG Data EKG #1 EKG attestation: Yes I reviewed and interpreted this EKG. EKG results narrative: EKG shows a sinus tachycardia at a rate of 170 beats per minute, WV interval 135, QRS duration 98, QTc of 475. There is no evidence of STEMI on EKG. The EKG was compared to previous on 03/20/18.
[2018-04-08 15:00] LABS: Basophils % 0.2 %; Eosinophils # 0.1 K/mcL (0.0-0.6); Eosinophils % 0.7 %; Hematocrit 36.8 % (37.5-50.1); Hemoglobin 11.9 g/dL (12.9-16.9); Immature Granulocytes % 0.4 % (0-4); Lymphocytes % 17.7 %; Mean Corpuscular HGB Conc 32.3 g/dL (31.6-35.5); Mean Corpuscular Hemoglobin 27.2 pg (28.0-33.3); Mean Platelet Volume 9.4 fL (9.4-12.4); Monocytes # 0.3 K/mcL (0.0-1.3); Monocytes % 2.7 %; Neutrophils # 8.8 K/mcL (1.6-8.9); Platelet Count 252 K/mcL (140-400); Red Blood Count 4.38 M/mcL (4.19-5.50); Red Cell Distribution Width 14.9 % (11.5-14.5); Segmented Neutrophils % 78.3 %
[2018-04-08 15:22] LABS: BUN/Creatinine Ratio 24 (6-26); Blood Urea Nitrogen 17 mg/dL (6-20); Calcium 9.6 mg/dL (8.6-10.3); Carbon Dioxide 31 mEq/L (23-29); Chloride 87 mEq/L (98-107); Glucose 180 mg/dL (70-105); Osmolality,Calculated 278 (280-300); Potassium 3.2 mEq/L (3.5-5.1); Sodium 131 mEq/L (136-145); eGFR For Non-African Americans > 60 (> 60)
[2018-04-08 15:23] LABS: Troponin I < 0.03 ng/mL (< 0.04)
[2018-04-08] MEDS ORDERED: methylPREDNISolone 125 MG/2 ML VIAL IVP ONE (15:40)
[2018-04-08] MEDS: 0.9 % Sodium Chloride 1,000 ML IVC SCH (15:51)
[2018-04-08] MEDS ORDERED: Albuterol 2.5 MG/3 ML NEBULIZER IH PRN (16:13)
[2018-04-08] MEDS ORDERED: Acetaminophen 325 MG TABLET PO PRN (16:15)
[2018-04-08] MEDS ORDERED: *HR* HYDROcodone/Acet 5/325 mg TABLET PO PRN (16:15)
[2018-04-08] MEDS ORDERED: *HR* OxyCODONE Immed Rel 5 MG TABLET PO PRN (16:15)
[2018-04-08] MEDS ORDERED: Naloxone 0.4 MG/ML INJ IVP PRN (16:15)
[2018-04-08] MEDS: Ipratropium/Albuterol Neb 3 ML IH SCH ×2 (17:16→21:15)
--- NOTE | 2018-04-08 17:56 | Internal Med History&Physical ---
Date of Encounter: 04/08/18 Time of Encounter: 17:38 Internal Medicine - H&P: HPI Chief complaint: Shortness of breath Admitted From: Home Plans for Post Hospital Care: Home History of present illness: Mr. Blanchard is a 58 year old male with a PMH of CHF, COPD, hyperlipidemia, hypertension, and pulmonary embolus, chronic resp failure on home O2 and BIPAP He presented to the ER because his home health nurse said his lung sounded wet. he was recently discharged from this facility on 03/22 following management for COPDE with acute bronchitis The patient is still on his tapering dose of prednisone. He is also taking shawna thromycin 250mg daily. He reports being compliant with his meds , he also reports compliance with fluid restriction, oxygen and BiPAP. He reports his only complaint at this time is shortness of breath, he denies worsening cough or sputum production. He denies hemoptysis. He has an appointment with pulmonology, but never makes it to the appointment due to multiple readmissions. He denies chest pain, nausea, vomiting, diaphoresis, dizziness or palpitation. He denies changes in urinary or bowel habits. In the ER, the patient was found to be hypoxic on ambulation while being on his 4 L of home oxygen, was found to be wheezing diffusely without significant improvement after multiple breathing treatments. Chest x-ray is negative for any acute infiltrates, he has mild leukocytosis but is on steroids at home, chemistries showing mild hyponatremia and hypokalemia, chronic metabolic alkalosis, hypochloremia. Mild hyperglycemia. BNP was WNL at 58 and troponin was negative. D-dimer was WNL EKG shows sinus tachycardia with HR [address] segment changes. He reports no changes in his home medications since discharge He has no advance directives and he is full code Past Med Surg Social Fam HX - Past Medical History Medical history: CHF, COPD, hyperlipidemia, hypertension, pulmonary embolus Additional medical history: umbilical hernia Psychiatric history: anxiety, depression - Past Surgical History Surgical History: no surgical history - Social History Smoking Status: Former smoker Smokeless Tobacco Status: No Alcohol use: none Drug use: none - Family History Father Living Status: Hx Family Cancer: Yes (colon) Mother Living Status: Hx Family Cancer: Yes Internal Medicine - H&P: Meds Oxygen 4 l NS AD 07/25/17 [History] Roflumilast [Daliresp] 500 mcg PO DAILY 07/25/17 [History] Furosemide [Lasix] 40 mg PO TID #90 tab 09/20/17 [Rx] Mometasone/Formoterol [Dulera 200 Mcg/5 Mcg Inhaler] 2 puff IH BID #1 hfa.aer.ad 09/20/17 [Rx] Omeprazole [PriLOSEC] 20 mg PO 0730 09/30/17 [History] Loratadine [Claritin] 10 mg PO DAILY #30 tablet 11/09/17 [Rx] Gabapentin [Neurontin] 300 mg PO TID 12/31/17 [History] Triamterene/HCTZ 37.5/25mg [Dyazide] 1 tab PO DAILY 12/31/17 [History] Albuterol Sulfate [Albuterol Inhaler] 2 puff IH Q4H PRN #1 inhaler 01/17/18 [Rx] Albuterol Neb [Proventil Neb] 2.5 mg IH Q4HR PRN 02/16/18 [History] Rivaroxaban [Xarelto] 20 mg PO DAILY@1700 03/06/18 [History] Azithromycin 250 mg PO DAILY #3 tablet 03/22/18 [Rx] GuaiFENesin ER [Mucinex] 600 mg PO BID #30 tbbp.12hr 03/22/18 [Rx] predniSONE [PredniSONE] 20 mg PO DAILY 04/08/18 [History] Allergy/AdvReac Type Severity Reaction Status Date / Time levofloxacin AdvReac Blurry Verified 03/20/18 13:24 [facility] Systems PM: A 10-system review of systems was performed and is negative for pertinent findings except as documented above in the HPI. - Constitutional Constitutional: no chills, no fever(s), no night sweats - EENT Eyes: no change in vision, no discharge, no pain, no photophobia Ears: no ear discharge, no ear pain, no tinnitus Nose, mouth and throat: no dysphagia, no nasal discharge, no neck pain, no sore throat - Cardiovascular Cardiovascular ROS IM: as per HPI - Respiratory Respiratory: as per HPI - Gastrointestinal Gastrointestinal: no abdominal pain, no diarrhea, no hematemesis, no hematochezia, no melena, no nausea, no vomiting - Musculoskeletal Musculoskeletal ROS IM: no numbness, no tingling - Integumentary Integumentary IM: no rash, no unusual bruising - Neurological Neurological ROS: no confusion, no convulsions, no focal weakness, no numbness, no tingling, no tremor(s) - Hematologic/Lymphatic Hematologic/Lymphatic: no easy bruising - Constitutional Vitals: Temp Pulse Resp BP Pulse Ox 98.4 F 91 18 134/82 98 04/08/18 14:32 04/08/18 16:37 04/08/18 16:37 04/08/18 16:37 04/08/18 16:37 Exam: Vital signs noted-tachycardia resolved Gen: Calm, not in distress, speaks full sentences HEENT: Short neck, Moist oral mucosa, sclera anicteric, not pale Chest: Equal chest movement bilaterally REsp: Diffuse bilateral rhonchourous breath sounds , no wheezing Heart: S1, S2, only, no m/g/r Abdomen: Obese, soft, not tender, BS present in al quadrants Extremities: Joint inspection is WNL, no pedal edema, pulses present bilaterally Neuro: AAOX3, no speech deficits, moves all extremities equally, no facial paralysis Psych: Affect is appropriate Internal Med - H&P Results - Labs CBC & Chem 7: 04/08/18 14:35 04/08/18 14:35 Labs: Short CBC 04/08/18 Range/Units 14:35 WBC 11.2 H (4.3-11.1) K/mcL Hgb 11.9 L (12.9-16.9) g/dL Hct 36.8 L (37.5-50.1) % Plt Count 252 (140-400) K/mcL Neutrophils # 8.8 (1.6-8.9) K/mcL BMP 04/08/18 14:35 Sodium 131 L Potassium 3.2 L Chloride 87 L Carbon Dioxide 31 H BUN 17 Creatinine 0.70 Glucose 180 H Calcium 9.6 Cardiac Enzymes 04/08/18 Range/Units 14:35 Troponin I < 0.03 (< 0.04) ng/mL - Impressions ITS Impressions Chest X-Ray 04/08/18 14:49 IMPRESSION: COPD with some chronic scarring in the lingula. D/ / 04/08/2018 15:17:31 Jc Carlos MD / guido Interpreting Provider: Jc Carlos MD - Assessment and plan (1) Acute and chronic respiratory failure with hypoxia Current Visit: Yes Status: Acute Assessment and plan: Patient with multiple recurrent admissions for COPDE THis time, represents with similar diagnosis BNP, Trop, D-dimer WNL CXR negative for new infiltrates Continue prednisone 40 mg by mouth daily Continue duo nebs Start patient on doxycycline twice a day, due to patient multiple admissions and recent use of azithromycin. Patient is allergic to Levaquin Pulmonology will be consulted, day team to call Continue oxygen by nasal cannula Continue BiPAP at night and when necessary ECHO done 02/2018 showed preserved ejection fraction with mild left ventricular diastolic dysfunction, no pulmonary hypertension (2) Acute exacerbation of chronic obstructive airways disease Current Visit: Yes Status: Acute Assessment and plan: As above (3) DVT prophylaxis Current Visit: Yes Status: Acute Assessment and plan: Patient is on Xarelto for pulmonary embolism, continue the same (4) Essential hypertension Current Visit: Yes Status: Chronic Assessment and plan: Continue home medications (5) GERD (gastroesophageal reflux disease) Current Visit: Yes Status: Chronic Assessment and plan: Continue home medications Qualifiers: Esophagitis presence: without esophagitis Qualified Code(s): K21.9 - Gastro-esophageal reflux disease without esophagitis (6) HLD (hyperlipidemia) Current Visit: Yes Status: Chronic Assessment and plan: Continue home medications Qualifiers: Hyperlipidemia type: unspecified Qualified Code(s): E78.5 - Hyperlipidemia, unspecified (7) Hypokalemia Current Visit: Yes Status: Acute (8) Leukocytosis Current Visit: Yes Status: Acute Assessment and plan: Likely due to steroid use No focus of infection Qualifiers: Leukocytosis type: unspecified Qualified Code(s): D72.829 - Elevated white blood cell count, unspecified (9) Pulmonary embolism Current Visit: Yes Status: Chronic Assessment and plan: Continue xarelto. D-dimer is within normal limits at this time. Qualifiers: Pulmonary embolism type: other Chronicity: unspecified Acute cor pulmonale presence: without acute cor pulmonale Qualified Code(s): I26.99 - Other pulmonary embolism without acute cor pulmonale - Time Spent With Patient Total time spent is greater than 50% in coordination of care (as documented) at patient's floor/unit and/or counseling patient:
[2018-04-08] MEDS: *HR* Rivaroxaban 10 MG TABLET PO SCH (19:13)
[2018-04-08] MEDS: Furosemide 40 MG TABLET PO SCH (19:13)
[2018-04-08] MEDS: Doxycycline 100 MG CAPSULE PO SCH (19:57)
[2018-04-08] MEDS: Gabapentin 300 MG CAPSULE PO SCH (19:57)
[2018-04-09] MEDS: 0.9 % Sodium Chloride 1,000 ML IVC SCH (03:24)
[2018-04-09] MEDS: Ipratropium/Albuterol Neb 3 ML IH SCH ×4 (04:51→22:46)
[2018-04-09 04:59] LABS: Hematocrit 32.2 % (37.5-50.1); Immature Granulocytes % 0.2 % (0-4); Lymphocytes # 0.7 K/mcL (0.6-4.6); Lymphocytes % 16.1 %; Mean Corpuscular Hemoglobin 26.8 pg (28.0-33.3); Mean Corpuscular Volume 83.9 fL (83.0-100.0); Mean Platelet Volume 9.7 fL (9.4-12.4); Monocytes # 0.1 K/mcL (0.0-1.3); Monocytes % 1.2 %; Neutrophils # 3.4 K/mcL (1.6-8.9); Platelet Count 242 K/mcL (140-400); Red Blood Count 3.84 M/mcL (4.19-5.50); Red Cell Distribution Width 14.9 % (11.5-14.5); Segmented Neutrophils % 82.5 %
[2018-04-09 05:05] LABS: Hemoglobin 10.3 g/dL (12.9-16.9)
[2018-04-09 05:17] LABS: BUN/Creatinine Ratio 29 (6-26); Blood Urea Nitrogen 19 mg/dL (6-20); Calcium 9.1 mg/dL (8.6-10.3); Carbon Dioxide 30 mEq/L (23-29); Chloride 93 mEq/L (98-107); Glucose 182 mg/dL (70-105); Osmolality,Calculated 283 (280-300); Sodium 133 mEq/L (136-145); eGFR For Non-African Americans > 60 (> 60)
[2018-04-09] MEDS: Gabapentin 300 MG CAPSULE PO SCH ×3 (07:57→20:31)
[2018-04-09] MEDS: predniSONE 20 MG TABLET PO SCH (07:57)
[2018-04-09] MEDS: Roflumilast [Daliresp] 500 MCG PO SCH (07:58)
[2018-04-09] MEDS: Loratadine 10 MG TABLET PO SCH (07:58)
[2018-04-09] MEDS: Doxycycline 100 MG CAPSULE PO SCH (07:58)
[2018-04-09] MEDS: Furosemide 40 MG TABLET PO SCH ×3 (07:58→16:44)
--- NOTE | 2018-04-09 08:57 | Pulmonology Consult Note ---
<Lm Ratliff S - Last Filed: 04/09/18 13:21> Date of Encounter: 04/09/18 Time of Encounter: 08:52 Assessment and Plan (1) Acute and chronic respiratory failure with hypoxia Current Visit: Yes Status: Acute Pt was hx of COPD with multiple admissions, very difficult to control - similar symptoms as last admission in February CXR negative for acute cardiopulmonary process, no new infiltrates ECHO 02/2018 - mild LV diastolic dysfxn, no pHTN Currently 94% on 2L NC Respiratory panel negative Plan: - continue prednisone 40mg PO daily, plan to taper by 10mg per week with outpatient follow up with pulmonology - check rheumatoid factor and anti-CCP - continue duonebs - conitnue Albuterol prn SOB - Symbicort as scheduled - discontinue doxycycline - begin Augmentin day 1 for a total of 1 wk - keep O2 sat >92% - BiPAP at night - pt needs to fluid restrict, continue fluids, and limit salt intact - consult to respiratory therapy to educate pt about proper inhaler use (2) DVT prophylaxis Current Visit: Yes Status: Acute On Xarelto. (3) Acute exacerbation of chronic obstructive airways disease Current Visit: Yes Status: Acute See plan as above. (4) History of pulmonary embolism Current Visit: No Status: Chronic Has distant hx of a PE - continue xarelto - D dimer is WNL (5) Obstructive sleep apnea Current Visit: Yes Status: Acute On BiPAP (6) Obesity (BMI 30.0-34.9) Current Visit: Yes Status: Acute BMI 31.6 - may be contributing to SOB along with umbilical hernia (7) Heart failure with preserved ejection fraction Current Visit: Yes Status: Acute Pt last ECHO in Feb 2018 - showed preserved ejection fraction with LV diastolic dysfxn and no pulmonary HTN - recommend to d/c fluids to avoid fluid overload NOT in acute exacerbation. History of Present Illness Consult date: 04/08/18 Requesting physician: Phong Muir Reason for consult: COPD Chief complaint: SOB History of present illness: Mr Blanchard is a 58yo male with PMH of diastolic CHF, COPD, HDL, HTN, chronic respiratory failure on home O2, MYNOR on BiPAP, and hx of PE on Xarelto. He presented to the ER yesterday by the request of his home health nurse because of increasing SOB. She said he had low oxygen to him. He has been having increasing SOB from baseline over the last 2-3 days, he is SOB all the time with any activity. His baseline O2 use is 4L. He states he has been using his rescue inhaler more over the last three days or so. The pt is unable to walk from his kitchen to bathroom without his "oxygen getting low." The pt hasn't been having increasing cough but does have some white sputum production without blood. He denies chest pain, N/V/D, headache, palpiltations. The pt does have a large umbilical hernia which he feels contributes to his SOB and causes him some abdominal discomfort. Pt denies living in conditions with mold/dust. [place]. 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 Denies contact with dogs, cats or birds. Pt reports taking all medications as prescribed and being compliant with BiPAP. He was recently at [facility] on 03/22/18 for acute bronchitis and was sent home with a prednisone taper and azithromycin. In the ER the pt was on his 4L of home oxygen but was hypoxic , O2 sat was 90. CXR was negative for acute cardiopulmonary process. EKG showed tacycardia HR 170 without signs of ischemia. Past Med Surg Social Fam HX - Past Medical History Medical history: CHF, COPD, hyperlipidemia, hypertension, pulmonary embolus Additional medical history: umbilical hernia Psychiatric history: anxiety, depression - Past Surgical History Surgical History: no surgical history - Social History Smoking Status: Former smoker Smokeless Tobacco Status: No Alcohol use: none Drug use: none - Family History Father Living Status: Hx Family Cancer: Yes (colon) Mother Living Status: Hx Family Cancer: Yes Medications and Allergies Oxygen 4 l NS AD 07/25/17 [History] Roflumilast [Daliresp] 500 mcg PO DAILY 07/25/17 [History] Furosemide [Lasix] 40 mg PO TID #90 tab 09/20/17 [Rx] Mometasone/Formoterol [Dulera 200 Mcg/5 Mcg Inhaler] 2 puff IH BID #1 hfa.aer.ad 09/20/17 [Rx] Omeprazole [PriLOSEC] 20 mg PO 0730 09/30/17 [History] Loratadine [Claritin] 10 mg PO DAILY #30 tablet 11/09/17 [Rx] Gabapentin [Neurontin] 300 mg PO TID 12/31/17 [History] Triamterene/HCTZ 37.5/25mg [Dyazide] 1 tab PO DAILY 12/31/17 [History] Albuterol Sulfate [Albuterol Inhaler] 2 puff IH Q4H PRN #1 inhaler 01/17/18 [Rx] Albuterol Neb [Proventil Neb] 2.5 mg IH Q4HR PRN 02/16/18 [History] Rivaroxaban [Xarelto] 20 mg PO DAILY@1700 03/06/18 [History] Azithromycin 250 mg PO DAILY #3 tablet 03/22/18 [Rx] GuaiFENesin ER [Mucinex] 600 mg PO BID #30 tbbp.12hr 03/22/18 [Rx] predniSONE [PredniSONE] 20 mg PO DAILY 04/08/18 [History] Allergy/AdvReac Type Severity Reaction Status Date / Time levofloxacin AdvReac Blurry Verified 03/20/18 13:24 Vision All Systems: The remainder of the systems were reviewed and are negative - Constitutional Constitutional: no chills, no fever(s), no night sweats - EENT Eyes: no loss of peripheral vision, no loss of vision Nose, mouth and throat: no dizziness, no dysphagia - Cardiovascular Cardiovascular: dyspnea, dyspnea on exertion, edema, no chest pain, no chest pain at rest, no chest pain with activity, no palpitations - Respiratory Respiratory: cough, excessive phlegm production, no hemoptysis - Gastrointestinal Gastrointestinal: abdominal pain, no diarrhea, no nausea, no vomiting - Musculoskeletal Musculoskeletal: no arthralgias, no joint swelling - Integumentary Integumentary: no erythema, no rash, no jaundice - Neurological Neurological: no dizziness, no headache(s), no numbness, no tingling Physical Examination Vital Signs: Vital Signs, Last 4 Hours Temp Pulse Resp BP Pulse Ox 04/09/18 07:34 97.4 F L 64 16 146/76 94 04/09/18 04:52 18 94 General appearance: no acute distress, alert Eyes: nonicteric ENT: oropharynx moist Neck: supple Effort: mildly labored Inspection: normal Auscultation: bilateral: diminished breath sounds Cardiovascular: regular rate and rhythm Gastrointestinal: normoactive bowel sounds, soft, tender, non-distended Integumentary: normal Extremities: no edema Musculoskeletal: no deformities normal mental status, non-focal exam mood appropriate, affect normal Results - Laboratory Findings CBC and BMP: 04/09/18 03:14 04/09/18 03:14 PT/INR, D-dimer D-Dimer 398 ng/mLFEU (0-500) 04/08/18 14:53 Abnormal lab findings: Abnormal lab results WBC 4.1 K/mcL (4.3-11.1) L D 04/09/18 03:14 RBC 3.84 M/mcL (4.19-5.50) L 04/09/18 03:14 Hgb 10.3 g/dL (12.9-16.9) L D 04/09/18 03:14 Hct 32.2 % (37.5-50.1) L 04/09/18 03:14 MCH 26.8 pg (28.0-33.3) L 04/09/18 03:14 RDW 14.9 % (11.5-14.5) H 04/09/18 03:14 Sodium 133 mEq/L (136-145) L 04/09/18 03:14 Chloride 93 mEq/L (98-107) L 04/09/18 03:14 Carbon Dioxide 30 mEq/L (23-29) H 04/09/18 03:14 Creatinine 0.66 mg/dL (0.70-1.30) L 04/09/18 03:14 BUN/Creatinine Ratio 29 (6-26) H 04/09/18 03:14 Glucose 182 mg/dL (70-105) H 04/09/18 03:14 - Clinical Findings Intake & Output: Intake & Output 04/08/18 04/09/18 04/09/18 23:59 07:59 15:59 Intake Total 1000 / 1000 400 / 400 Balance 1000 / 1000 400 / 400 Weight 91.7 kg 91.6 kg Consult Discharge Plan - Plan Referrals: Martinez Rosa MD [Non-Partnered Physician] - <Richard Skinner W - Last Filed: 04/09/18 15:24> Date of Encounter: 04/09/18 All Systems: The remainder of the systems were reviewed and are negative Physical Examination Vital Signs: Vital Signs, Last 4 Hours Temp Pulse Resp BP Pulse Ox 04/09/18 14:50 97.7 F 91 16 115/73 92 04/09/18 11:44 97.3 F L 74 16 118/67 94 Results - Laboratory Findings CBC and BMP: 04/09/18 03:14 04/09/18 03:14 PT/INR, D-dimer D-Dimer 398 ng/mLFEU (0-500) 04/08/18 14:53 Abnormal lab findings: Abnormal lab results WBC 4.1 K/mcL (4.3-11.1) L D 04/09/18 03:14 RBC 3.84 M/mcL (4.19-5.50) L 04/09/18 03:14 Hgb 10.3 g/dL (12.9-16.9) L D 04/09/18 03:14 Hct 32.2 % (37.5-50.1) L 04/09/18 03:14 MCH 26.8 pg (28.0-33.3) L 04/09/18 03:14 RDW 14.9 % (11.5-14.5) H 04/09/18 03:14 Sodium 133 mEq/L (136-145) L 04/09/18 03:14 Chloride 93 mEq/L (98-107) L 04/09/18 03:14 Carbon Dioxide 30 mEq/L (23-29) H 04/09/18 03:14 Creatinine 0.66 mg/dL (0.70-1.30) L 04/09/18 03:14 BUN/Creatinine Ratio 29 (6-26) H 04/09/18 03:14 Glucose 182 mg/dL (70-105) H 04/09/18 03:14 - Clinical Findings Intake & Output: Intake & Output 04/08/18 04/09/18 04/09/18 23:59 07:59 15:59 Intake Total 1000 / 1000 500 / 500 600 / 600 Balance 1000 / 1000 500 / 500 600 / 600 Weight 91.7 kg 91.6 kg - Attending Attestation I examined this patient and my medical decision-making was reviewed with the Resident Physician. I agree with the documented findings, disposition and treatment plan as described except to the extent set forth below. We independently had [id number] contact with the patient Patient seen and examined at bedside Labs, radiology, chart personally reviewed. Impression: Acute on chronic hypoxic hypercapnic respiratory failure COPD exacerbation MYNOR Former smoker Recs: -Continue supplemental oxygen to keep saturation greater than 80% internal times out of bed to chair incentive spirometry and early ambulation are all helpful adjuncts to decrease V/Q mismatching secondary to atelectasis -IV steroids today transition to oral prednisone 40 mg taper by 10 mg weekly until pulmonary follow-up within the 1-2 weeks; schedule Symbicort 160/4.5 2 puffs twice a day with spacer respiratory therapy to instruct patient to use he also need to DuoNeb scheduled every 6 hours with every 2 hours albuterol as needed. Also recommend a weeklong course of beta lactams such as Augmentin. -Given his multiple COPDt recurrences we will also evaluate the patient possibility of a complicating process such as a rheumatological condition given chronic reticular changes on CT scan and joint pains -Given underlying evidence of elevated left ventricular end-diastolic filling pressures recommended net negative fluid status while inpatient -Continue BiPAP at night -Will be crucial to have outpatient pulmonary follow-up in 1-2 weeks of the time of discharge Patient for this consultation please call with questions
[2018-04-09 12:42] LABS: Adenovirus Not Detected (Not Detect); Bordetella Pertussis Not Detected (Not Detect); Chlamydophila pneumoniae Not Detected (Not Detect); Coronavirus 229E Not Detected (Not Detect); Coronavirus HKU1 Not Detected (Not Detect); Coronavirus NL63 Not Detected (Not Detect); Coronavirus OC43 Not Detected (Not Detect); Human Metapneumovirus Not Detected (Not Detect); Human Rhinovirus/Enterovirus Not Detected (Not Detect); Influenza A Subtype 2009 H1 Not Detected (Not Detect); Influenza A Untypeable Not Detected (Not Detect); Influenza B Not Detected (Not Detect); Mycoplasma pneumoniae Not Detected (Not Detect); Parainfluenza Virus 1 Not Detected (Not Detect); Parainfluenza Virus 2 Not Detected (Not Detect); Parainfluenza Virus 3 Not Detected (Not Detect); Parainfluenza Virus 4 Not Detected (Not Detect); Respiratory Syncytial Virus Not Detected (Not Detect)
--- NOTE | 2018-04-09 14:08 | Internal Med Progress Note ---
Hospitalist Progress Note - Encounter Date of Encounter: 04/09/18 Time of Encounter: 14:05 - Subjective Interval History: Mr. Blanchard is a 58 y/o M with a known past medical history of COPD, chronic hypoxic respiratory failure on 3 L oxygen dependent at home, chronic diastolic congestive heart failure, PE who is currently on Xarelto for anticoagulation who recently admitted here for COPD exacerbation discharged on 03/22/2018 now he came back to the ER last night with the worsening shortness of breath with cough and expectoration. Today patient states he still feeling rough. Still has cough with expectoration. Denied any CP - Exam Vitals: Temp Pulse Resp BP Pulse Ox 97.3 F L 74 16 118/67 94 04/09/18 11:44 04/09/18 11:44 04/09/18 11:44 04/09/18 11:44 04/09/18 11:44 Exam: Gen: Alert, awake, Oriented to time,place and person Chest: Diminished breath sounds B/L, mild wheezing, No crackles, No rales Heart: S1S2+ RRR No murmurs Abd: Soft, NT, BS +, No organomegaly Ext: No edema, pulses are palpable, No calf tenderness Neuro : Benign findings Skin: No rash. - Assessment and Plan (1) Acute exacerbation of chronic obstructive airways disease Current Visit: Yes Status: Acute Assessment and Plan: Improving non compliance with medication at home which is triggering into multiple recurrent flare up counseled the pt about it cont PO abx Augmentin Cont PO Steroids Duoneb and O2 (2) Acute and chronic respiratory failure with hypoxia Current Visit: Yes Status: Acute Assessment and Plan: Improving Due to COPD exacerbation almost close to baseline appreciate Pulm recommendations encourage to use BiPAP at bed time and as needed during day time (3) Essential hypertension Current Visit: Yes Status: Chronic Assessment and Plan: Continue home medications (4) Hypokalemia Current Visit: Yes Status: Acute Assessment and Plan: cont replacing (5) GERD (gastroesophageal reflux disease) Current Visit: Yes Status: Chronic Assessment and Plan: Continue home medications (6) Pulmonary embolism Current Visit: Yes Status: Chronic Assessment and Plan: Continue xarelto (7) HLD (hyperlipidemia) Current Visit: Yes Status: Chronic Assessment and Plan: Continue home medications (8) Leukocytosis Current Visit: Yes Status: Acute Assessment and Plan: Likely due to steroid use No focus of infection (9) DVT prophylaxis Current Visit: Yes Status: Acute Assessment and Plan: Patient is on Xarelto for pulmonary embolism, continue the same - Time Spent with Patient Total time spent is greater than 50% in coordination of care (as documented) at patient's floor/unit and/or counseling patient: Internal Medicine: Result - Labs CBC & Chem 7: 04/09/18 03:14 04/09/18 03:14 Labs: Short CBC 04/08/18 04/09/18 Range/Units 14:35 03:14 WBC 11.2 H 4.1 L D (4.3-11.1) K/mcL Hgb 11.9 L 10.3 L D (12.9-16.9) g/dL Hct 36.8 L 32.2 L (37.5-50.1) % Plt Count 252 242 (140-400) K/mcL Neutrophils # 8.8 3.4 (1.6-8.9) K/mcL BMP 04/08/18 04/09/18 14:35 03:14 Sodium 131 L 133 L Potassium 3.2 L 4.0 Chloride 87 L 93 L Carbon Dioxide 31 H 30 H BUN 17 19 Creatinine 0.70 0.66 L Glucose 180 H 182 H Calcium 9.6 9.1 Cardiac Enzymes 04/08/18 Range/Units 14:35 Troponin I < 0.03 (< 0.04) ng/mL - ABG Interpretation ABG results: PT/INR, D-dimer D-Dimer 398 ng/mLFEU (0-500) 04/08/18 14:53 - Impressions Impressions Chest X-Ray 04/08/18 14:49 IMPRESSION: COPD with some chronic scarring in the lingula. D/ / 04/08/2018 15:17:31 Jc Carlos MD / guido Interpreting Provider: Jc Carlos MD Consult Discharge Plan - Plan Referrals: Martinez Rosa MD [Non-Partnered Physician] - (5) GERD (gastroesophageal reflux disease) Qualifiers: Esophagitis presence: without esophagitis Qualified Code(s): K21.9 - Gastro- esophageal reflux disease without esophagitis (6) Pulmonary embolism Qualifiers: Pulmonary embolism type: other Chronicity: unspecified Acute cor pulmonale presence: without acute cor pulmonale Qualified Code(s): I26.99 - Other pulmonary embolism without acute cor pulmonale (7) HLD (hyperlipidemia) Qualifiers: Hyperlipidemia type: unspecified Qualified Code(s): E78.5 - Hyperlipidemia, u nspecified (8) Leukocytosis Qualifiers: Leukocytosis type: unspecified Qualified Code(s): D72.829 - Elevated white blood cell count, unspecified
[2018-04-09] MEDS: Amoxicillin/Clavulanate 500 MG TABLET PO SCH (16:44)
[2018-04-09] MEDS: *HR* Rivaroxaban 10 MG TABLET PO SCH (16:44)
[2018-04-09] MEDS: Budesonide/Formoterol 160/4.5 1 PUFF INH IH SCH (22:46)
[2018-04-10] MEDS: Ipratropium/Albuterol Neb 3 ML IH SCH ×4 (04:35→22:13)
[2018-04-10] MEDS: Amoxicillin/Clavulanate 500 MG TABLET PO SCH ×2 (07:22→17:05)
[2018-04-10] MEDS: predniSONE 20 MG TABLET PO SCH (07:22)
[2018-04-10] MEDS: Furosemide 40 MG TABLET PO SCH ×3 (07:22→17:05)
[2018-04-10] MEDS: Loratadine 10 MG TABLET PO SCH (07:22)
[2018-04-10] MEDS: Gabapentin 300 MG CAPSULE PO SCH ×3 (07:22→20:26)
[2018-04-10] MEDS: Roflumilast [Daliresp] 500 MCG PO SCH (07:23)
--- NOTE | 2018-04-10 08:41 | Internal Med Progress Note ---
Hospitalist Progress Note - Encounter Date of Encounter: 04/10/18 Time of Encounter: 08:39 - Subjective Interval History: Mr. Blanchard is a 58 y/o M with a known past medical history of COPD, chronic hypoxic respiratory failure on 3 L oxygen dependent at home, chronic diastolic congestive heart failure, PE who is currently on Xarelto for anticoagulation who recently admitted here for COPD exacerbation discharged on 03/22/2018 now he came back to the ER last night with the worsening shortness of breath with cough and expectoration. Today patient states he is little better today, however still feeling rough. Still has cough with expectoration. Denied any CP. - Exam Vitals: Temp Pulse Resp BP Pulse Ox 97.2 F L 64 16 111/69 94 04/10/18 07:20 04/10/18 07:20 04/10/18 07:20 04/10/18 07:20 04/10/18 07:20 Exam: Gen: Alert, awake, Oriented to time,place and person Chest: Diminished breath sounds B/L, mild wheezing, No crackles, rales + Heart: S1S2+ RRR No murmurs Abd: Soft, NT, BS +, No organomegaly Ext: No edema, pulses are palpable, No calf tenderness Neuro : Benign findings Skin: No rash. - Assessment and Plan (1) Acute exacerbation of chronic obstructive airways disease Current Visit: Yes Status: Acute Assessment and Plan: Improving non compliance with medication at home which is triggering into multiple recurrent flare ups counseled the pt about it cont PO abx Augmentin # 2/7 Cont PO Steroids.. May need continuous steroid therapy at low dose cont Symbicort Duoneb and O2 (2) Acute and chronic respiratory failure with hypoxia Current Visit: Yes Status: Acute Assessment and Plan: Improving Due to COPD exacerbation almost close to baseline appreciate Pulm recommendations encourage to use BiPAP at bed time and as needed during day time noticed mild rales, will give him one dose of Lasix (3) Essential hypertension Current Visit: Yes Status: Chronic Assessment and Plan: Continue home medications (4) Hypokalemia Current Visit: Yes Status: Acute Assessment and Plan: cont replacing (5) GERD (gastroesophageal reflux disease) Current Visit: Yes Status: Chronic Assessment and Plan: Continue home medications (6) Pulmonary embolism Current Visit: Yes Status: Chronic Assessment and Plan: Continue xarelto (7) HLD (hyperlipidemia) Current Visit: Yes Status: Chronic Assessment and Plan: Continue home medications (8) Leukocytosis Current Visit: Yes Status: Acute Assessment and Plan: Likely due to steroid use No focus of infection (9) DVT prophylaxis Current Visit: Yes Status: Acute Assessment and Plan: Patient is on Xarelto for pulmonary embolism, continue the same - Time Spent with Patient Total time spent is greater than 50% in coordination of care (as documented) at patient's floor/unit and/or counseling patient: Internal Medicine: Result - Labs CBC & Chem 7: 04/09/18 03:14 04/09/18 03:14 - ABG Interpretation ABG results: PT/INR, D-dimer D-Dimer 398 ng/mLFEU (0-500) 04/08/18 14:53 Consult Discharge Plan - Plan Referrals: Martinez Rosa MD [Non-Partnered Physician] - (5) GERD (gastroesophageal reflux disease) Qualifiers: Esophagitis presence: without esophagitis Qualified Code(s): K21.9 - Gastro- esophageal reflux disease without esophagitis (6) Pulmonary embolism Qualifiers: Pulmonary embolism type: other Chronicity: unspecified Acute cor pulmonale presence: without acute cor pulmonale Qualified Code(s): I26.99 - Other pulm onary embolism without acute cor pulmonale (7) HLD (hyperlipidemia) Qualifiers: Hyperlipidemia type: unspecified Qualified Code(s): E78.5 - Hyperlipidemia, unspecified (8) Leukocytosis Qualifiers: Leukocytosis type: unspecified Qualified Code(s): D72.829 - Elevated white blood cell count, unspecified
[2018-04-10] MEDS ORDERED: Furosemide 20 MG/2 ML VIAL IVP ONE (08:42)
[2018-04-10] MEDS: Budesonide/Formoterol 160/4.5 1 PUFF INH IH SCH ×2 (11:22→22:13)
[2018-04-10] MEDS: *HR* Rivaroxaban 10 MG TABLET PO SCH (17:05)
[2018-04-10] MEDS ORDERED: Fluticasone Propionate Nasal 50 MCG/SPRAY BOTTLE NS SCH (17:15)
[2018-04-11] MEDS: Ipratropium/Albuterol Neb 3 ML IH SCH (04:04)
[2018-04-11 05:22] LABS: BUN/Creatinine Ratio 35 (6-26); Blood Urea Nitrogen 19 mg/dL (6-20); Calcium 9.2 mg/dL (8.6-10.3); Carbon Dioxide 33 mEq/L (23-29); Chloride 95 mEq/L (98-107); Glucose 105 mg/dL (70-105); Magnesium 2.1 mg/dL (1.6-2.6); Osmolality,Calculated 285 (280-300); Potassium 3.7 mEq/L (3.5-5.1); Sodium 136 mEq/L (136-145); eGFR For Non-African Americans > 60 (> 60)
[2018-04-11 07:32] VITALS: BP 114/74
--- NOTE | 2018-04-11 08:03 | Discharge Summary ---
- NOTES TO OUTPATIENT PROVIDER Notes to Outpatient Provider: Follow up with PCP in one week. Follow-up with the pulmonory Dr. Skinner in 1 week. please stop taking HCTZ / Triamterene. Please take Prednisone as directed 40mg PO daily x 7 days, then 30mg Daily x 7 days then 20mg Daily x 7 days then continue at 10mg Daily until you see your enrollment processor Orders not resulted at time of discharge: Pending orders 04/08/18 14:24 EKG [ECG 12 lead ECG] [ECG] Stat 04/10/18 05:05 CCP IgG AM 0400 Date of Encounter: 04/11/18 Time of Encounter: 08:02 - Discharge Diagnosis (1) Acute exacerbation of chronic obstructive airways disease Priority: Primary Status: Acute (2) Acute and chronic respiratory failure with hypoxia Priority: Primary Status: Acute (3) Essential hypertension Priority: Secondary Status: Chronic (4) Hypokalemia Priority: Secondary Status: Acute (5) GERD (gastroesophageal reflux disease) Priority: Secondary Status: Chronic Qualifiers: Esophagitis presence: without esophagitis Qualified Code(s): K21.9 - Gastro-esophageal reflux disease without esophagitis (6) Pulmonary embolism Priority: Secondary Status: Chronic Qualifiers: Pulmonary embolism type: other Chronicity: unspecified Acute cor pulmonale presence: without acute cor pulmonale Qualified Code(s): I26.99 - Other pulmonary embolism without acute cor pulmonale (7) HLD (hyperlipidemia) Priority: Secondary Status: Chronic Qualifiers: Hyperlipidemia type: unspecified Qualified Code(s): E78.5 - Hyperlipidemia, unspecified (8) Leukocytosis Priority: Secondary Status: Acute Qualifiers: Leukocytosis type: unspecified Qualified Code(s): D72.829 - Elevated white blood cell count, unspecified (9) DVT prophylaxis Priority: Secondary Status: Acute Hospital course: Mr. Blanchard is a 58 y/o M with a known past medical history of COPD, chronic hypoxic respiratory failure on 3 L oxygen dependent at home, chronic diastolic congestive heart failure, PE who is currently on Xarelto for anticoagulation who recently admitted here for COPD exacerbation discharged on 03/22/2018 now he came back to the ER last night with the worsening shortness of breath with cough and expectoration. Patient was admitted in the hospital and started him on IV steroids and empirical antibiotic with augmentin. He was placed on BiPAP as needed. Pt symptoms started improving slowly. His respiratory viral panel came back is negative for any viral infection. Patient seems to be noncompliance with his BiPAP and neb treatments at home,. I did social services counselor the patient about importance of using BiPAP as needed during the day time for short of breath as well as continuously at night time. Also he does need continue steroid therapy, so start him on prednisone 40 mg daily for 7 days and tapering down 10 mg every week. - Time Spent with Patient Total time spent providing and/or coordinating discharge services: - Discharge Medications Prescriptions: Amoxicillin/Clavulanate [Augmentin] 500 mg PO BIDWM #10 tablet Potassium Chloride 20 meq PO DAILY #30 tab.er.prt predniSONE [PredniSONE] 40 mg PO DAILY #35 tablet Home Medications: Oxygen 4 l NS AD 07/25/17 [History] Roflumilast [Daliresp] 500 mcg PO DAILY 07/25/17 [History] Furosemide [Lasix] 40 mg PO TID #90 tab 09/20/17 [Rx] Mometasone/Formoterol [Dulera 200 Mcg/5 Mcg Inhaler] 2 puff IH BID #1 hfa.aer.ad 09/20/17 [Rx] Omeprazole [PriLOSEC] 20 mg PO 0730 09/30/17 [History] Loratadine [Claritin] 10 mg PO DAILY #30 tablet 11/09/17 [Rx] Gabapentin [Neurontin] 300 mg PO TID 12/31/17 [History] Albuterol Sulfate [Albuterol Inhaler] 2 puff IH Q4H PRN #1 inhaler 01/17/18 [Rx] Albuterol Neb [Proventil Neb] 2.5 mg IH Q4HR PRN 02/16/18 [History] Rivaroxaban [Xarelto] 20 mg PO DAILY@1700 03/06/18 [History] GuaiFENesin ER [Mucinex] 600 mg PO BID #30 tbbp.12hr 03/22/18 [Rx] Amoxicillin/Clavulanate [Augmentin] 500 mg PO BIDWM #10 tablet 04/11/18 [Rx] Potassium Chloride 20 meq PO DAILY #30 tab.er.prt 04/11/18 [Rx] predniSONE [PredniSONE] 40 mg PO DAILY #35 tablet 04/11/18 [Rx] Allergies/Adverse Reactions: Allergy/AdvReac Type Severity Reaction Status Date / Time levofloxacin AdvReac Blurry Verified 03/20/18 13:24 Vision Date of admission: 04/08/18 16:44 Primary care physician: Nilson Campa Consults: 04/08/18 16:14 Consult to Nurse Navigator [CONS] Routine Comment: 04/08/18 18:31 Consult to Pulmonology [CONS] Routine Consulting Provider: [facility] Jeaneth Reason for Consult: Recurrent admissions weekly for COPDE Call Completed: No 04/09/18 13:23 Consult to Respiratory Therapy [CONS] Routine Reason for Consult: teach pt how to use inhalers Call Completed: No - Constitutional Vitals: Temp Pulse Resp BP Pulse Ox 97.8 F 72 16 114/74 93 04/11/18 07:31 04/11/18 07:31 04/11/18 07:31 04/11/18 07:31 04/11/18 07:31 Exam: Gen: Alert, awake, Oriented to time,place and person Chest: Diminished breath sounds B/L, mild wheezing, No crackles, rales + Heart: S1S2+ RRR No murmurs Abd: Soft, NT, BS +, No organomegaly Ext: No edema, pulses are palpable, No calf tenderness Neuro : Benign findings Skin: No rash. - Patient Status Disposition: Home Health Service Condition: Good Overall status at discharge: patient is back to baseline - Discharge Instructions Follow Up With: Regulo Costello MD [Partnered Physician] - (Your appointment has been requested. Our offices will call you with an appointment time and date ) Martinez Rosa MD [Non-Partnered Physician] - Richard Skinner MD [Partnered Physician] - - Diet and Activity Activity: increase activity as tolerated, wear oxygen at all times Diet: low salt diet
--- NOTE | 2018-04-11 08:09 | Physician Discharge Referral ---
Home Health/Hosp Referral Info Transfer to: Home Health Provider in Charge Post Discharge: PCP - Diagnosis (1) Acute exacerbation of chronic obstructive airways disease Status: Acute (2) Acute and chronic respiratory failure with hypoxia Status: Acute (3) Essential hypertension Status: Chronic (4) Hypokalemia Status: Acute (5) GERD (gastroesophageal reflux disease) Status: Chronic (6) Pulmonary embolism Status: Chronic (7) HLD (hyperlipidemia) Status: Chronic (8) Leukocytosis Status: Acute (9) DVT prophylaxis Status: Acute - Respiratory Orders Smoking Cessation: Smoking cessation has been advised. For more information, call the [place] Tobacco Quit Line at 2-458-IHGA-NOW. - Transfer Medications Prescriptions: Amoxicillin/Clavulanate [Augmentin] 500 mg PO BIDWM #10 tablet Potassium Chloride 20 meq PO DAILY #30 tab.er.prt predniSONE [PredniSONE] 40 mg PO DAILY #35 tablet Home Medications: Oxygen 4 l NS AD 07/25/17 [History] Roflumilast [Daliresp] 500 mcg PO DAILY 07/25/17 [History] Furosemide [Lasix] 40 mg PO TID #90 tab 09/20/17 [Rx] Mometasone/Formoterol [Dulera 200 Mcg/5 Mcg Inhaler] 2 puff IH BID #1 hfa.aer.ad 09/20/17 [Rx] Omeprazole [PriLOSEC] 20 mg PO 0730 09/30/17 [History] Loratadine [Claritin] 10 mg PO DAILY #30 tablet 11/09/17 [Rx] Gabapentin [Neurontin] 300 mg PO TID 12/31/17 [History] Albuterol Sulfate [Albuterol Inhaler] 2 puff IH Q4H PRN #1 inhaler 01/17/18 [Rx] Albuterol Neb [Proventil Neb] 2.5 mg IH Q4HR PRN 02/16/18 [History] Rivaroxaban [Xarelto] 20 mg PO DAILY@1700 03/06/18 [History] GuaiFENesin ER [Mucinex] 600 mg PO BID #30 tbbp.12hr 03/22/18 [Rx] Amoxicillin/Clavulanate [Augmentin] 500 mg PO BIDWM #10 tablet 04/11/18 [Rx] Potassium Chloride 20 meq PO DAILY #30 tab.er.prt 04/11/18 [Rx] predniSONE [PredniSONE] 40 mg PO DAILY #35 tablet 04/11/18 [Rx] Allergies/Adverse Reactions: Allergy/AdvReac Type Severity Reaction Status Date / Time levofloxacin AdvReac Blurry Verified 03/20/18 13:24 Vision Certification: Further, I certify that my clinical findings support that this patient is homebound (i.e. absences from home require considerable and taxing effort and are for medical reasons or tenriism services or infrequently or short duration when for other reasons) because: Homebound Reason: Patient requires assistance of a person or device to safely leave home Attestation: My signature below is to certify that this patient is under my care and that I, or nurse practitioner, or a physician's assistant professor of spanish working with me, has a [id number] encounter with this patient.
--- NOTE | 2018-04-11 09:39 | Physician Discharge Referral ---
Home Health/Hosp Referral Info Transfer to: Home Health Provider in Charge Post Discharge: PCP - Diagnosis (1) Acute exacerbation of chronic obstructive airways disease Status: Acute (2) Acute and chronic respiratory failure with hypoxia Status: Acute (3) Essential hypertension Status: Chronic (4) Hypokalemia Status: Acute (5) GERD (gastroesophageal reflux disease) Status: Chronic (6) Pulmonary embolism Status: Chronic (7) HLD (hyperlipidemia) Status: Chronic (8) Leukocytosis Status: Acute (9) DVT prophylaxis Status: Acute - Respiratory Orders Smoking Cessation: Smoking cessation has been advised. For more information, call the [place] Tobacco Quit Line at 0-427-QUHI-NOW. - Services Needed Following services are medically necessary services: Nursing, Physical Therapy, Occupational Therapy - Transfer Medications Prescriptions: Amoxicillin/Clavulanate [Augmentin] 500 mg PO BIDWM #10 tablet Potassium Chloride 20 meq PO DAILY #30 tab.er.prt predniSONE [PredniSONE] 40 mg PO DAILY #35 tablet Home Medications: Oxygen 4 l NS AD 07/25/17 [History] Roflumilast [Daliresp] 500 mcg PO DAILY 07/25/17 [History] Furosemide [Lasix] 40 mg PO TID #90 tab 09/20/17 [Rx] Mometasone/Formoterol [Dulera 200 Mcg/5 Mcg Inhaler] 2 puff IH BID #1 hfa.aer.ad 09/20/17 [Rx] Omeprazole [PriLOSEC] 20 mg PO 0730 09/30/17 [History] Loratadine [Claritin] 10 mg PO DAILY #30 tablet 11/09/17 [Rx] Gabapentin [Neurontin] 300 mg PO TID 12/31/17 [History] Albuterol Sulfate [Albuterol Inhaler] 2 puff IH Q4H PRN #1 inhaler 01/17/18 [Rx] Albuterol Neb [Proventil Neb] 2.5 mg IH Q4HR PRN 02/16/18 [History] Rivaroxaban [Xarelto] 20 mg PO DAILY@1700 03/06/18 [History] GuaiFENesin ER [Mucinex] 600 mg PO BID #30 tbbp.12hr 03/22/18 [Rx] Amoxicillin/Clavulanate [Augmentin] 500 mg PO BIDWM #10 tablet 04/11/18 [Rx] Potassium Chloride 20 meq PO DAILY #30 tab.er.prt 04/11/18 [Rx] predniSONE [PredniSONE] 40 mg PO DAILY #35 tablet 04/11/18 [Rx] Allergies/Adverse Reactions: Allergy/AdvReac Type Severity Reaction Status Date / Time levofloxacin AdvReac Blurry Verified 03/20/18 13:24 Vision Certification: Further, I certify that my clinical findings support that this patient is homebound (i.e. absences from home require considerable and taxing effort and are for medical reasons or yazidism services or infrequently or short duration when for other reasons) because: Homebound Reason: Patient requires assistance of a person or device to safely leave home Attestation: My signature below is to certify that this patient is under my care and that I, or nurse practitioner, or a physician's internal medicine physician assistant working with me, has a [id number] encounter with this patient.
--- NOTE | 2018-04-13 08:31 | Electrocardiograph Report ---
[place] [id number] Test Date: 2018-04-08 Pat Name: Jason Blanchard Department: EXAMC9 Room: 3B24 Gender: M [employer]: : 1960 Requested By: Giovani England Order Number: [id number] Reading MD: Charlie Terrell Measurements Intervals [place] Rate: 107 P: 53 SD: 155 QRS: 3 QRSD: 98 T: 71 QT: 356 QTc: 475 Interpretive Statements Sinus tachycardia Probable left atrial enlargement Posterior infarct, recent Electronically Signed On 04-13-2018 8:29:43 EST by Charlie Terrell
== END 2018-04-11 09:42 | disposition home health service (06) ==
LOC: 3BNU 14:17 → EMEROOARM 14:17 → 3BNU 18:07
PROVIDERS: ADMIT Internal Medicine; ATTEND Internal Medicine

== ENCOUNTER 2018-04-11 14:01 | Inpatient (IN) ==
[2018-04-11] MEDS ORDERED: methylPREDNISolone 125 MG/2 ML VIAL IVP ONE (14:18)
[2018-04-11] MEDS ORDERED: Ipratropium/Albuterol Neb 3 ML IH ONE (14:18)
[2018-04-11 14:48] LABS: Basophils % 0.1 %; Eosinophils # 0.1 K/mcL (0.0-0.6); Eosinophils % 0.7 %; Hematocrit 38.6 % (37.5-50.1); Immature Granulocytes % 0.6 % (0-4); Lymphocytes # 1.2 K/mcL (0.6-4.6); Lymphocytes % 10.3 %; Mean Corpuscular HGB Conc 31.1 g/dL (31.6-35.5); Mean Corpuscular Hemoglobin 26.8 pg (28.0-33.3); Mean Corpuscular Volume 86.2 fL (83.0-100.0); Mean Platelet Volume 9.2 fL (9.4-12.4); Monocytes # 0.6 K/mcL (0.0-1.3); Monocytes % 4.7 %; Neutrophils # 9.9 K/mcL (1.6-8.9); Platelet Count 313 K/mcL (140-400); Red Blood Count 4.48 M/mcL (4.19-5.50); Red Cell Distribution Width 15.4 % (11.5-14.5); Segmented Neutrophils % 83.6 %
--- NOTE | 2018-04-11 14:51 | Emergency Department Note ---
Disposition Clinical Impression: Increased oxygen demand, Elevated lactic acid level Sepsis Qualifiers: Sepsis type: sepsis due to unspecified organism Qualified Code(s): A41.9 - Sepsis, unspecified organism Pneumonia Qualifiers: Pneumonia type: due to unspecified organism Laterality: left Lung location: unspecified part of lung Qualified Code(s): J18.9 - Pneumonia, unspecified organism Dyspnea Qualifiers: Dyspnea type: unspecified Qualified Code(s): R06.00 - Dyspnea, unspecified Disposition: Admitted As Inpatient Condition: Fair Referrals: Nilson Campa [Primary Care Provider] - Forms: ED Satisfaction Letter Time of Disposition: 18:08 General Adult HPI - General Chief complaint: ED Shortness of Breath/Dyspnea Stated complaint: PHYLLIS Time Seen by Provider: 04/11/18 14:14 Source: patient Mode of arrival: EMS Limitations: no limitations Nursing Notes Reviewed: Yes Vital Signs Reviewed: Yes - History of Present Illness HPI Narrative: Patient is a 58-year-old male that presents emergency department for worsening of his shortness of breath. Patient states that he was recently admitted to the hospital for this chest pain COPD exacerbation. Patient states that he was discharged this morning and was returned home by squad. Patient states that when he got into his house he felt that he was having increased shortness of breath. Patient states that he does use 4 L of oxygen at home and has had increased oxygen requirements and worsening of his shortness of breath. Patient states that he does have chest pain however this is chronic for him. Patient states that he feels like he needs to be readmitted to the hospital due to worsening of his breathing. Pain Scale: 0 - Related Data Home Medications Medication Instructions Recorded Confirmed Oxygen 4 l NS AD 07/25/17 04/08/18 Roflumilast [Daliresp] 500 mcg PO DAILY 07/25/17 04/08/18 Omeprazole [PriLOSEC] 20 mg PO 0730 09/30/17 04/08/18 Gabapentin [Neurontin] 300 mg PO TID 12/31/17 04/08/18 Rivaroxaban [Xarelto] 20 mg PO DAILY@1700 03/06/18 04/08/18 Fluticasone/Salmeterol [Advair Hfa 2 puff IH BID 04/11/18 04/11/18 115-21 Mcg Inhaler] Ipratropium/Albuterol Sulfate 1 vial IH Q4H PRN 04/11/18 04/11/18 [Iprat-Albut 0.5-3(2.5) mg/3 ml] Previous Rx's Medication Instructions Recorded Furosemide [Lasix] 40 mg PO TID #90 tab 09/20/17 Loratadine [Claritin] 10 mg PO DAILY #30 tablet 11/09/17 Albuterol Sulfate [Albuterol 2 puff IH Q4H PRN #1 inhaler 01/17/18 Inhaler] GuaiFENesin ER [Mucinex] 600 mg PO BID #30 tbbp.12hr 03/22/18 Amoxicillin/Clavulanate [Augmentin] 500 mg PO BIDWM #10 tablet 04/11/18 Potassium Chloride 20 meq PO DAILY #30 tab.er.prt 04/11/18 Allergies Allergy/AdvReac Type Severity Reaction Status Date / Time levofloxacin AdvReac Blurry Verified 03/20/18 13:24 Vision All systems ED: reviewed and negative except as stated. Constitutional: Denies: fever Cardiovascular: Reports: chest pain Respiratory: Reports: dyspnea Gastrointestinal: Denies: abdominal pain, nausea, vomiting Past Medical History - Past Medical History Medical history: Reports: CHF, COPD, hyperlipidemia, hypertension, pulmonary embolus Surgical history: Reports: no surgical history Psychiatric history: Reports: anxiety, depression - Social History Smoking Status: Former smoker Smokeless Tobacco Status: No Alcohol use: Reports: none Drug use: Reports: none Physical Exam - General Limitations: no limitations General appearance: alert, in no apparent distress - Head Head exam: atraumatic, normocephalic - Eye Eye exam: Present: normal appearance, EOMI - Neck Neck exam: Present: normal inspection, full ROM, trachea midline - Respiratory Respiratory exam: Present: wheezes - Cardiovascular Cardiovascular exam: Present: normal rhythm, tachycardia, normal heart sounds, +S1, +S2 - Abdominal Exam Abdominal exam: Present: soft, Non-Tender, normal bowel sounds - Neurological Exam Neurological exam: Present: alert, oriented X3 - Psychiatric Psychiatric exam: Present: normal affect, normal mood - Skin Skin exam: Present: warm, dry, intact Course Vital Signs Temperature 98.1 F 04/11/18 14:04 Pulse Rate 117 04/11/18 14:04 Respiratory Rate 24 04/11/18 14:04 Blood Pressure 148/84 04/11/18 14:04 O2 Sat by Pulse Oximetry 89 04/11/18 14:04 Temperature 100.7 F H 04/11/18 14:19 Pulse Rate 82 04/11/18 17:58 Respiratory Rate 22 04/11/18 17:58 Blood Pressure 126/75 04/11/18 17:58 O2 Sat by Pulse Oximetry 94 04/11/18 17:58 Oxygen Delivery Oxygen Delivery Nasal Cannula Medical Decision Making - MDM Narrative Medical decision making narrative: Due the patient into the emergency department with increased respiratory obtain basic laboratory testing, chest x-ray and EKG. Patient will likely need admission to the hospital. Patient be given steroids and breathing treatments here in the emergency department. Patient was febrile here in the emergency dep artment 100.7. Tachycardic. Did have an elevated white blood cell count and a lactic acid of 2.3. This is all highly suggestive of a infectious etiology. His chest x-ray was read as likely scarring however after review by myself and the attending there is concern that this could possibly be a pneumonia. Patient will be started on broad-spectrum antibiotics of vancomycin and Zosyn and will be given IV fluids. Patient will also be given antipyretics here in the emergency department. Based on these findings a CT scan of the chest to evaluate for possible pneumonia. This will be a noncontrasted study to identify the possible pneumonia. The patient will need admission to the hospital for further evaluation and management of his medical condition. [address] scan of the patient's chest was reviewed by myself and the attending which is concerning for possible left-sided pneumonia. We will continue with the antibiotic therapy and IV fluids. The patient will need admission to the [facility] for further evaluation and management. Formal read is pending from radiology. [address] scan read came back showing a pneumonia on the left. The hospitalist was paged. Patient will be admitted for further evaluation and management. 1835 hospitalist called back and the patient was admitted to the hospital. Dr. Perdomo is accepting physician. Patient be admitted to the hospital this time for further evaluation and management. - Medical Records Medical records reviewed: Yes I reviewed the patient's medical records. - Lab Data Lab results reviewed: Yes I reviewed the patient's lab results. Result diagrams: 04/11/18 14:35 04/11/18 14:35 Lab Results 04/11/18 04/11/18 04/11/18 Range/Units 14:35 14:35 14:35 WBC 11.8 H D (4.3-11.1) K/mcL RBC 4.48 (4.19-5.50) M/mcL Hgb 12.0 L D (12.9-16.9) g/dL Hct 38.6 (37.5-50.1) % MCV 86.2 (83.0-100.0) fL MCH 26.8 L (28.0-33.3) pg MCHC 31.1 L (31.6-35.5) g/dL RDW 15.4 H (11.5-14.5) % Plt Count 313 (140-400) K/mcL MPV 9.2 L (9.4-12.4) fL Immature Gran % 0.6 (0-4) % Seg Neutrophils % 83.6 % Lymphocytes % 10.3 % Monocytes % 4.7 % Eosinophils % 0.7 % Basophils % 0.1 % Neutrophils # 9.9 H (1.6-8.9) K/mcL Lymphocytes # 1.2 (0.6-4.6) K/mcL Monocytes # 0.6 (0.0-1.3) K/mcL Eosinophils # 0.1 (0.0-0.6) K/mcL Basophils # 0.0 (0.0-0.2) K/mcL Sodium 136 (136-145) mEq/L Potassium 3.7 (3.5-5.1) mEq/L Chloride 92 L (98-107) mEq/L Carbon Dioxide 32 H (23-29) mEq/L BUN 20 (6-20) mg/dL Creatinine 0.59 L (0.70-1.30) mg/dL Est GFR ( Amer) > 60 (> 60) Est GFR (Non-Af Amer) > 60 (> 60) BUN/Creatinine Ratio 34 H (6-26) Glucose 72 (70-105) mg/dL Calculated Osmolality 283 (280-300) Lactic Acid 2.3 H (0.5-2.2) mmol/L Calcium 9.8 (8.6-10.3) mg/dL Troponin I < 0.03 (< 0.04) ng/mL B-Natriuretic Peptide (Less than 100) pg/mL Urine Color (Yellow) Urine Clarity (Clear) Urine pH (5.0-8.0) pH Units Ur Specific [place] (1.010-1.025) Urine Protein (Neg-Trace) mg/dL Urine Glucose (UA) (Normal) mg/dL Urine Ketones (Negative) mg/dL Urine Blood (Negative) Urine Nitrite (Negative) Urine Bilirubin (Negative) Urine Urobilinogen (Normal) mg/dL Ur Leukocyte Esterase (Negative) Ur Culture Indicated? (NO) 04/11/18 04/11/18 04/11/18 Range/Units 14:35 16:15 17:57 WBC (4.3-11.1) K/mcL RBC (4.19-5.50) M/mcL Hgb (12.9-16.9) g/dL Hct (37.5-50.1) % MCV (83.0-100.0) fL MCH (28.0-33.3) pg MCHC (31.6-35.5) g/dL RDW (11.5-14.5) % Plt Count (140-400) K/mcL MPV (9.4-12.4) fL Immature Gran % (0-4) % Seg Neutrophils % % Lymphocytes % % Monocytes % % Eosinophils % % Basophils % % Neutrophils # (1.6-8.9) K/mcL Lymphocytes # (0.6-4.6) K/mcL Monocytes # (0.0-1.3) K/mcL Eosinophils # (0.0-0.6) K/mcL Basophils # (0.0-0.2) K/mcL Sodium (136-145) mEq/L Potassium (3.5-5.1) mEq/L Chloride (98-107) mEq/L Carbon Dioxide (23-29) mEq/L BUN (6-20) mg/dL Creatinine (0.70-1.30) mg/dL Est GFR ( Amer) (> 60) Est GFR (Non-Af Amer) (> 60) BUN/Creatinine Ratio (6-26) Glucose (70-105) mg/dL Calculated Osmolality (280-300) Lactic Acid 2.0 (0.5-2.2) mmol/L Calcium (8.6-10.3) mg/dL Troponin I (< 0.04) ng/mL B-Natriuretic Peptide 45 (Less than 100) pg/mL Urine Color Yellow (Yellow) Urine Clarity Clear (Clear) Urine pH 7.0 (5.0-8.0) pH Units Ur Specific [place] 1.022 (1.010-1.025) Urine Protein Negative (Neg-Trace) mg/dL Urine Glucose (UA) Normal (Normal) mg/dL Urine Ketones Negative (Negative) mg/dL Urine Blood Negative (Negative) Urine Nitrite Negative (Negative) Urine Bilirubin Negative (Negative) Urine Urobilinogen Normal (Normal) mg/dL Ur Leukocyte Esterase Negative (Negative) Ur Culture Indicated? NO (NO) - Radiology Data Radiology results reviewed: Yes I reviewed the patient's radiology results. Chest X-Ray 04/11/18 14:18 IMPRESSION: 1. Stable chest x-ray with linear densities involving the lower lung zones likely representing scarring. D/ / Haim Pyle MD / Haim Pyle MD Interpreting Provider: Haim Pyle MD - EKG Data EKG #1 EKG attestation: Yes I reviewed and interpreted this EKG. EKG results narrative: EKG shows a sinus tachycardia at a rate of 160 bpm, OR interval 152, curious duration of 93, QTC of 4:30. There is no evidence of STEMI on EKG. This is compared to previous EKG on 03/20/18 which showed a sinus tachycardia at a rate of 190 bpm. Attestation Statement - Attestation Attestation: I, Alfred Koroma DO, examined this patient [id number] and my medical decision-making was reviewed with Dr. Jose Khan, Resident Physician. I agree with the documented findings, disposition and treatment plan as described except to the extent set forth below. Please see my progress notes for details.
[2018-04-11 15:09] LABS: Troponin I < 0.03 ng/mL (< 0.04)
[2018-04-11 15:38] LABS: BUN/Creatinine Ratio 34 (6-26); Blood Urea Nitrogen 20 mg/dL (6-20); Calcium 9.8 mg/dL (8.6-10.3); Carbon Dioxide 32 mEq/L (23-29); Chloride 92 mEq/L (98-107); Glucose 72 mg/dL (70-105); Osmolality,Calculated 283 (280-300); Potassium 3.7 mEq/L (3.5-5.1); Sodium 136 mEq/L (136-145); eGFR For Non-African Americans > 60 (> 60)
[2018-04-11] MEDS ORDERED: Piperacillin/Tazobactam 3.375 GM in 0.9 % Sodium Chloride Mini Bag 100 ML IVPB ONE (16:01)
[2018-04-11] MEDS ORDERED: 0.9 % Sodium Chloride 1,000 ML IVC ONE ×2 (16:04)
--- NOTE | 2018-04-11 16:08 | Emergency Department Note ---
Disposition Clinical Impression: Increased oxygen demand Sepsis Qualifiers: Sepsis type: sepsis due to unspecified organism Qualified Code(s): A41.9 - Sepsis, unspecified organism Pneumonia Qualifiers: Pneumonia type: due to unspecified organism Laterality: left Lung location: unspecified part of lung Qualified Code(s): J18.9 - Pneumonia, unspecified organism Dyspnea Qualifiers: Dyspnea type: unspecified Qualified Code(s): R06.00 - Dyspnea, unspecified Disposition: Admitted As Inpatient Condition: Fair Referrals: Nilson Campa [Resident] - Forms: ED Satisfaction Letter Time of Disposition: 18:20 General Adult HPI - General Chief complaint: ED Shortness of Breath/Dyspnea Stated complaint: PHYLLIS Time Seen by Provider: 04/11/18 14:14 Source: patient Mode of arrival: EMS Limitations: no limitations - History of Present Illness Pain Scale: 0 - Related Data Home Medications Medication Instructions Recorded Confirmed Oxygen 4 l NS AD 07/25/17 04/08/18 Roflumilast [Daliresp] 500 mcg PO DAILY 07/25/17 04/08/18 Omeprazole [PriLOSEC] 20 mg PO 0730 09/30/17 04/08/18 Gabapentin [Neurontin] 300 mg PO TID 12/31/17 04/08/18 Rivaroxaban [Xarelto] 20 mg PO DAILY@1700 03/06/18 04/08/18 Fluticasone/Salmeterol [Advair Hfa 2 puff IH BID 04/11/18 04/11/18 115-21 Mcg Inhaler] Ipratropium/Albuterol Sulfate 1 vial IH Q4H PRN 04/11/18 04/11/18 [Iprat-Albut 0.5-3(2.5) mg/3 ml] Previous Rx's Medication Instructions Recorded Furosemide [Lasix] 40 mg PO TID #90 tab 09/20/17 Loratadine [Claritin] 10 mg PO DAILY #30 tablet 11/09/17 Albuterol Sulfate [Albuterol 2 puff IH Q4H PRN #1 inhaler 01/17/18 Inhaler] GuaiFENesin ER [Mucinex] 600 mg PO BID #30 tbbp.12hr 03/22/18 Amoxicillin/Clavulanate [Augmentin] 500 mg PO BIDWM #10 tablet 04/11/18 Potassium Chloride 20 meq PO DAILY #30 tab.er.prt 04/11/18 Allergies Allergy/AdvReac Type Severity Reaction Status Date / Time levofloxacin AdvReac Blurry Verified 03/20/18 13:24 Vision Constitutional: Denies: fever Cardiovascular: Reports: chest pain Respiratory: Reports: dyspnea Gastrointestinal: Denies: abdominal pain, nausea, vomiting Past Medical History - Past Medical History Medical history: Reports: CHF, COPD, hyperlipidemia, hypertension, pulmonary embolus Surgical history: Reports: no surgical history Psychiatric history: Reports: anxiety, depression - Social History Smoking Status: Former smoker Smokeless Tobacco Status: No Alcohol use: Reports: none Drug use: Reports: none Physical Exam - General Limitations: no limitations General appearance: alert, in no apparent distress Course Vital Signs Temperature 98.1 F 04/11/18 14:04 Pulse Rate 117 04/11/18 14:04 Respiratory Rate 24 04/11/18 14:04 Blood Pressure 148/84 04/11/18 14:04 O2 Sat by Pulse Oximetry 89 04/11/18 14:04 Temperature 100.7 F H 04/11/18 14:19 Pulse Rate 82 04/11/18 17:58 Respiratory Rate 22 04/11/18 17:58 Blood Pressure 126/75 04/11/18 17:58 O2 Sat by Pulse Oximetry 94 04/11/18 17:58 Oxygen Delivery Oxygen Delivery Nasal Cannula Medical Decision Making - Lab Data Result diagrams: 04/11/18 14:35 04/11/18 14:35 Lab Results 04/11/18 04/11/18 04/11/18 Range/Units 14:35 14:35 14:35 WBC 11.8 H D (4.3-11.1) K/mcL RBC 4.48 (4.19-5.50) M/mcL Hgb 12.0 L D (12.9-16.9) g/dL Hct 38.6 (37.5-50.1) % MCV 86.2 (83.0-100.0) fL MCH 26.8 L (28.0-33.3) pg MCHC 31.1 L (31.6-35.5) g/dL RDW 15.4 H (11.5-14.5) % Plt Count 313 (140-400) K/mcL MPV 9.2 L (9.4-12.4) fL Immature Gran % 0.6 (0-4) % Seg Neutrophils % 83.6 % Lymphocytes % 10.3 % Monocytes % 4.7 % Eosinophils % 0.7 % Basophils % 0.1 % Neutrophils # 9.9 H (1.6-8.9) K/mcL Lymphocytes # 1.2 (0.6-4.6) K/mcL Monocytes # 0.6 (0.0-1.3) K/mcL Eosinophils # 0.1 (0.0-0.6) K/mcL Basophils # 0.0 (0.0-0.2) K/mcL Sodium 136 (136-145) mEq/L Potassium 3.7 (3.5-5.1) mEq/L Chloride 92 L (98-107) mEq/L Carbon Dioxide 32 H (23-29) mEq/L BUN 20 (6-20) mg/dL Creatinine 0.59 L (0.70-1.30) mg/dL Est GFR ( Amer) > 60 (> 60) Est GFR (Non-Af Amer) > 60 (> 60) BUN/Creatinine Ratio 34 H (6-26) Glucose 72 (70-105) mg/dL Calculated Osmolality 283 (280-300) Lactic Acid 2.3 H (0.5-2.2) mmol/L Calcium 9.8 (8.6-10.3) mg/dL Troponin I < 0.03 (< 0.04) ng/mL B-Natriuretic Peptide (Less than 100) pg/mL Urine Color (Yellow) Urine Clarity (Clear) Urine pH (5.0-8.0) pH Units Ur Specific [place] (1.010-1.025) Urine Protein (Neg-Trace) mg/dL Urine Glucose (UA) (Normal) mg/dL Urine Ketones (Negative) mg/dL Urine Blood (Negative) Urine Nitrite (Negative) Urine Bilirubin (Negative) Urine Urobilinogen (Normal) mg/dL Ur Leukocyte Esterase (Negative) Ur Culture Indicated? (NO) 04/11/18 04/11/18 04/11/18 Range/Units 14:35 16:15 17:57 WBC (4.3-11.1) K/mcL RBC (4.19-5.50) M/mcL Hgb (12.9-16.9) g/dL Hct (37.5-50.1) % MCV (83.0-100.0) fL MCH (28.0-33.3) pg MCHC (31.6-35.5) g/dL RDW (11.5-14.5) % Plt Count (140-400) K/mcL MPV (9.4-12.4) fL Immature Gran % (0-4) % Seg Neutrophils % % Lymphocytes % % Monocytes % % Eosinophils % % Basophils % % Neutrophils # (1.6-8.9) K/mcL Lymphocytes # (0.6-4.6) K/mcL Monocytes # (0.0-1.3) K/mcL Eosinophils # (0.0-0.6) K/mcL Basophils # (0.0-0.2) K/mcL Sodium (136-145) mEq/L Potassium (3.5-5.1) mEq/L Chloride (98-107) mEq/L Carbon Dioxide (23-29) mEq/L BUN (6-20) mg/dL Creatinine (0.70-1.30) mg/dL Est GFR ( Amer) (> 60) Est GFR (Non-Af Amer) (> 60) BUN/Creatinine Ratio (6-26) Glucose (70-105) mg/dL Calculated Osmolality (280-300) Lactic Acid 2.0 (0.5-2.2) mmol/L Calcium (8.6-10.3) mg/dL Troponin I (< 0.04) ng/mL B-Natriuretic Peptide 45 (Less than 100) pg/mL Urine Color Yellow (Yellow) Urine Clarity Clear (Clear) Urine pH 7.0 (5.0-8.0) pH Units Ur Specific [place] 1.022 (1.010-1.025) Urine Protein Negative (Neg-Trace) mg/dL Urine Glucose (UA) Normal (Normal) mg/dL Urine Ketones Negative (Negative) mg/dL Urine Blood Negative (Negative) Urine Nitrite Negative (Negative) Urine Bilirubin Negative (Negative) Urine Urobilinogen Normal (Normal) mg/dL Ur Leukocyte Esterase Negative (Negative) Ur Culture Indicated? NO (NO) Attestation Statement - Attestation Attestation: I, Alfred Koroma DO, examined this patient [id number] and my medical decision-making was reviewed with Dr. Jose Khan, Resident Physician. I agree with the documented findings, disposition and treatment plan as described except to the extent set forth below. Please see my progress notes for details. 58-year-old male presents emergency room for evaluation of shortness of breath. Patient was just discharged from the hospital here today for COPD exacerbation and pneumonia. Patient denies chest pain. He has had fevers and chills even while he was being discharged. Denies any nausea vomiting or diarrhea. Denies any headache or vision change. On physical exam he is tachycardic, tachypneic, febrile on arrival. His pulse ox was 89% on 4 L. Typically on 4 L at home. Patient does have some significant increased work of breathing. He has diffuse wheezing in the right lung and left lung. He is using accessory muscles. Heart is regular but tachycardic. Abdomen is soft nontender nondistended with no guarding no rigidity no peritoneal symptoms. Has no signs of pitting edema or rash or lesions on the extremities. Pulses in the radial DP and PT distributions are symmetrical. Patient will improve treatments and steroids provided. Antibiotics will be held at this time considering he was just discharged from the hospital. Suspicion is that he went home and was transporting from the squad to the house and out into cold air any spasm his lungs again at this point. Concern is because the fever as well as the tachycardia there could be underlying infectious etiology still. Will monitor closely until a specific source is found. Patient is otherwise clinically stable. We will continue to monitor here until treatment course has been completed. See detailed documentation of the physical exam, medical intervention, medical decision-making and disposition in the resident physician's note. 1500 Patient's chest x-ray is concerning for bilateral scarring versus pneumonia. Because of the initial presentation we will start vancomycin and Zosyn to have outpatient management and potential healthcare acquired pneumonia. The patient will also have CT of the chest completed with noncontrasted evaluation to differentiate scarring versus infectious etiology. Patient is otherwise stable. Fluids and nausea medication will be given. Tylenol was at a been ordered. Disposition will be admission. We will continue to monitor here until the remainder the workup is completed. Patient will be determined as severe sepsis at this time. Lactic acid is elevated but not greater than 400 patient has not been hypotensive. He does not require immediate fluid resuscitation. Appropriate intervention has been ordered at this time. 1800 CT scan of the chest confirms left lower lobe superimposed pneumonia with scarring. This is Comparison to previous evaluations. Patient does have a known source not this time in the anabiotic regiment is artery been started. Patient was deemed to be septic at 150 hours and had treatment started at that point. Patient will be admitted at this time for continuation of care. No other acute issues noted this point. Patient has had moderate resolution of the symptoms with breathing treatments. Hospitalist Dr. cantu reviewed the case and no other recommendations or concerns this time. Patient will be admitted for continuation of care. We will monitor in emergency room until admission process is completed
--- NOTE | 2018-04-11 17:34 | Electrocardiograph Report ---
[place] [id number] Test Date: 2018-04-11 Pat Name: Jason Blanchard Department: [id number] Room: Gender: M [employer] [employer] Super[employer]: : 1960 Requested By: Alfred Koroma Order Number: [id number] Reading MD: Josselin Friedman Measurements Intervals [place] Rate: 116 P: 69 DE: 152 QRS: 43 QRSD: 93 T: 65 QT: 309 QTc: 430 Interpretive Statements Sinus tachycardia Abnormal R-wave progression, early transition Electronically Signed On 04-11-2018 17:33:24 EST by Josselin Friedman
[2018-04-11 18:12] LABS: Bilirubin,Urine Negative (Negative); Blood,Urine Negative (Negative); Clarity,Urine Clear (Clear); Color,Urine Yellow (Yellow); Glucose,Urine (UA) Normal (Normal); Ketones,Urine Negative (Negative); Leukocyte Esterase,Urine Negative (Negative); Nitrite,Urine Negative (Negative); Protein,Urine Negative (Neg-Trace); Specific Gravity,Urine 1.022 (1.010-1.025); Urobilinogen,Urine Normal (Normal)
[2018-04-11] MEDS ORDERED: Naloxone 0.4 MG/ML INJ IVP PRN (20:14)
[2018-04-11] MEDS ORDERED: Ipratropium/Albuterol Neb 3 ML IH PRN (20:24)
--- NOTE | 2018-04-11 20:41 | Internal Med History&Physical ---
<Hank Mariscal - Last Filed: 04/11/18 20:41> Date of Encounter: 04/11/18 Time of Encounter: 20:40 Internal Medicine - H&P: HPI Chief complaint: Dyspnea Admitted From: Home Plans for Post Hospital Care: Transfer [facility] History of present illness: Mr. Blanchard is a 58 year old male with PMHx significant for Chronic Hypoxic Respiratory Failure on 4L O2 at home, CHF with preserved EF, COPD, HTN, HLD, and history of PE who presents to the ED with complaints on SOB. Pt notes that he was discharged home this morning after spending the past few days in the hospital due to COPD Exacerbation. Upon arriving home, he immediately felt short of breath. Patient is chronically on 4L O2 via NC, which did not relieve symptoms. States that he tried BIPAP to relieve symptoms, but did not find relief and found that his HR was elevated. After consulting with home health nurse and speaking with physician, she suggested he return to the ED for re- evaluation. In the ED, patient was evaluated, and found to have labored breathing, dyspnea. Additionally, patient found to be febrile, with elevated HR, RR, white count. Lactic Acid found to elevated to 2.3. Blood cultures were drawn and patient was started on empiric abx (Zosyn, Vancomycin). Additionally, patient was given IV steroids, breathing treatment and IVF. O2 sats were initially 89 on 4L O2 via NC at time of arrival, but improved to 94-95 with breathing treatments and steroids. Patient was given 1 dose antipyretic for fever. Lactic Acid trended down 2.3 --> 2.0 --> 1.6. CXR: Stable Chest XR with linear densities involving the lower lung zones likely representing scarring EKG: Sinus Tachycardia, with abnormal R-wave progression; no ST changes Trop: Negative UA: Negative BNP: [address]: Increased left lower lobe opacity superimposed upon chronic changes likely represents pneumonia Pt is currently in no acute distress, breathing comfortably on 3L O2 via NC s/p solumedrol, breathing treatments, IVF, antipyretic. States that he feels much better than before. Notes that for the past day or two, he has occasionally been coughing up clear-white sputum, non-blood tinged. Additionally complains on nasal congestion, but denies fevers/chills, headache, vision changes, chest pain, abdominal pain, nausea, vomiting, diarrhea. Vitals currently hemodynamically stable - pt is afebrile, with regular heart rate and respiratory rate. Plan to admit patient to hospitalist for treatment of hospital acquired pneumonia. Past Med Surg Social Fam HX - Past Medical History Medical history: CHF, COPD, hyperlipidemia, hypertension, pulmonary embolus Additional medical history: umbilical hernia Psychiatric history: anxiety, depression - Past Surgical History Surgical History: no surgical history - Social History Smoking Status: Former smoker Smokeless Tobacco Status: No Alcohol use: none Drug use: none - Family History Father Living Status: Hx Family Cancer: Yes (colon) Mother Living Status: Hx Family Cancer: Yes Internal Medicine - H&P: Meds Oxygen 4 l NS CONT 07/25/17 [History] Roflumilast [Daliresp] 500 mcg PO DAILY 07/25/17 [History] Furosemide [Lasix] 40 mg PO TID #90 tab 09/20/17 [Rx] Omeprazole [PriLOSEC] 20 mg PO 0730 09/30/17 [History] Loratadine [Claritin] 10 mg PO DAILY #30 tablet 11/09/17 [Rx] Gabapentin [Neurontin] 300 mg PO TID 12/31/17 [History] Albuterol Sulfate [Albuterol Inhaler] 2 puff IH Q4H PRN #1 inhaler 01/17/18 [Rx] Rivaroxaban [Xarelto] 20 mg PO DAILY@1700 03/06/18 [History] GuaiFENesin ER [Mucinex] 600 mg PO BID #30 tbbp.12hr 03/22/18 [Rx] Amoxicillin/Clavulanate [Augmentin] 500 mg PO BIDWM #10 tablet 04/11/18 [Rx] Fluticasone/Salmeterol [Advair Hfa 115-21 Mcg Inhaler] 2 puff IH BID 04/11/18 [History] Ipratropium/Albuterol Sulfate [Iprat-Albut 0.5-3(2.5) mg/3 ml] 1 vial IH Q4H PRN 04/11/18 [History] Potassium Chloride 20 meq PO DAILY #30 tab.er.prt 04/11/18 [Rx] Allergy/AdvReac Type Severity Reaction Status Date / Time levofloxacin AdvReac Blurry Verified 03/20/18 13:24 Vision All Systems PM: A 10-system review of systems was performed and is negative for pertinent findings except as documented above in the HPI. - Constitutional Constitutional: no chills, no fatigue, no fever(s), no lethargy - EENT Eyes: no blurry vision, no change in vision Nose, mouth and throat: nasal congestion, no hoarseness, no nasal discharge, no neck pain, no sore throat - Cardiovascular Cardiovascular ROS IM: dyspnea, no chest pain, no edema, no lightheadedness, no palpitations, no syncope - Respiratory Respiratory: cough, dyspnea, wheezing, no hemoptysis - Gastrointestinal Gastrointestinal: no abdominal pain, no diarrhea, no nausea, no vomiting - Musculoskeletal Musculoskeletal ROS IM: no myalgias - Integumentary Integumentary IM: no rash - Neurological Neurological ROS: paresthesias, no confusion, no headache(s) - Constitutional Vitals: Temp Pulse Resp BP Pulse Ox 97.2 F L 80 22 117/77 94 04/11/18 18:54 04/11/18 18:52 04/11/18 20:26 04/11/18 20:26 04/11/18 18:52 General appearance: Present: cooperative, A&O X 3, pleasant, no acute distress, answers questions appropriately Exam: GEN: AOx3; NAD; Resting comfortably in bed on 3L O2 via NC HEENT: Atraumatic, normocephalic; nasal congestion; mucous membranes moist; EOMI CARDIO: RRR, no murmurs, rubs, gallops RESP: Coarse breath sounds b/l; mild wheeze on RL and LL lung carmen; no crackles ABD: Soft, non-tender, non-distended, bowel sounds present NEURO: CN 2-12 intact; no focal deficits EXT: No LE edema b/l Internal Med - H&P Results - Labs CBC & Chem 7: 04/11/18 14:35 04/11/18 14:35 Labs: Short CBC 04/11/18 Range/Units 14:35 WBC 11.8 H D (4.3-11.1) K/mcL Hgb 12.0 L D (12.9-16.9) g/dL Hct 38.6 (37.5-50.1) % Plt Count 313 (140-400) K/mcL Neutrophils # 9.9 H (1.6-8.9) K/mcL BMP 04/11/18 14:35 Sodium 136 Potassium 3.7 Chloride 92 L Carbon Dioxide 32 H BUN 20 Creatinine 0.59 L Glucose 72 Calcium 9.8 Cardiac Enzymes 04/11/18 Range/Units 14:35 Troponin I < 0.03 (< 0.04) ng/mL Urine 04/11/18 Range/Units 17:57 Urine Color Yellow (Yellow) Urine Clarity Clear (Clear) Urine pH 7.0 (5.0-8.0) pH Units Ur Specific [place] 1.022 (1.010-1.025) Urine Protein Negative (Neg-Trace) mg/dL Urine Glucose (UA) Normal (Normal) mg/dL - Impressions ITS Impressions Chest X-Ray 04/11/18 14:18 IMPRESSION: 1. Stable chest x-ray with linear densities involving the lower lung zones likely representing scarring. D/ / Haim Pyle MD / Haim Pyle MD Interpreting Provider: Haim Pyle MD Chest CT 04/11/18 16:02 IMPRESSION: Increased left lower lobe opacity superimposed upon chronic changes likely represents pneumonia. D/ / 04/11/2018 18:10:52 Sulaiman Centeno MD / Nori Greenberg Interpreting Provider: Sulaiman Centeno MD - Assessment and plan (1) Pneumonia Current Visit: Yes Status: Acute Assessment and plan: Mr. Blanchard is a 58 year old male with PMHx significant for Chronic Hypoxic Respiratory Failure on 4L O2 at home, CHF with preserved EF, COPD, HTN, HLD, and history of PE who presents to the ED with complaints on SOB. Discharged earlier today with COPD exacerbation - discharged home on prednisone taper and 10d course on Augmentin Immediately felt SOB upon returning home Pt is chronically on 4L O2 via NC at home In ED, pt was febrile, tachycardic, tachypnic with mild leukocytosis and elevated lactic acid CXR: Stable Chest XR with linear densities involving the lower lung zones likely representing scarring CT Chest: increased left lower lobe opacity superimposed upon chronic changes likely represents pneumonia Pt improved with steroids, duonebs, IVF, antipyretic. Will treat for hospital acquired pneumonia. PLAN: Monitor Vitals, O2 sats Cont O2 via NC Cont Duonebs Cont Vanc and Zosyn CBC in the AM Follow up strep Ag, legionella Ag, Sputum culture Qualifiers: Pneumonia type: due to unspecified organism Laterality: left Lung location: unspecified part of lung Qualified Code(s): J18.9 - Pneumonia, unspecified organism (2) Sepsis Current Visit: Yes Status: Acute Assessment and plan: Pt initially presented with signs of severe sepsis: T=100.7; HR = 140; RR=24; SpO2=89 on 4L O2; WBC = 11.8; Lactic Acid = 2.3 Pt improved s/p 2L IVF CT Chest: LLL Opacity - likely pneumonia UA: Negative Pt currently afebrile, normal HR, RR, stable on 3L O2 via NC; Lactic Acid trended down 2.3 --> 2.0 --> 1.6 PLAN: Cont maintenance IVF Monitor vitals CBC in the AM Follow up Blood Cultures Qualifiers: Sepsis type: sepsis due to unspecified organism Qualified Code(s): A41.9 - Sepsis, unspecified organism (3) Acute and chronic respiratory failure Current Visit: No Status: Resolved Assessment and plan: Chronic condition Maintained at home on 4L O2 via NC O2 Sats stable on 4L O2 currently PLAN: Monitor O2 Sats Cont Duonebs Cont Daliresp Cont Symbicort BIPAP at night, and as needed Qualifiers: Respiratory failure complication: hypoxia Qualified Code(s): J96.21 - Acute and chronic respiratory failure with hypoxia (4) Acute exacerbation of chronic obstructive airways disease Current Visit: No Status: Acute Assessment and plan: Recently admitted due to COPD exacerbation, and discharged earlier this morning on Prednisone taper and 10d Augmentin Pt presented back to ED today with SOB Found to have LLL Infiltrate on CT O2 Sats stable on 4L O2 PLAN: Cont duonebs, symbicort, daliresp Monitor O2 Sats Hold steroids for now (5) Heart failure with preserved ejection fraction Current Visit: Yes Status: Acute Assessment and plan: Most recent Echo: 9/28/18 Impression LVEF 50-55%. Mild left ventricular diastolic dysfunction. Mildly dilated left atrium. Mild mitral regurgitation. No pulmonary hypertension Currently 95% sat on 3L O2 BNP - 45 PLAN: Unlikely to be acute exacerbation; Not currently fluid overloaded Cont maint fluids at 75 cc/hr Cont Lasix 40mg TID Strict Is & Os Daily weights (6) History of pulmonary embolism Current Visit: No Status: Chronic Assessment and plan: Hx of PE Cont Xarelto (7) Obstructive sleep apnea Current Visit: No Status: Acute Assessment and plan: Cont BIPAP at night (8) DVT prophylaxis Current Visit: No Status: Acute Assessment and plan: Cont Plavix - Time Spent With Patient Total time spent is greater than 50% in coordination of care (as documented) at patient's floor/unit and/or counseling patient: less than 15 minutes <Ladonna Ward - Last Filed: 04/11/18 23:22> Date of Encounter: 04/11/18 Internal Medicine - H&P: HPI History of present illness: Mr. Blanchard is a 58 year old male All Systems PM: A 10-system review of systems was performed and is negative for pertinent findings except as documented above in the HPI. - Constitutional Vitals: Temp Pulse Resp BP Pulse Ox 98.8 F 78 14 117/77 93 04/11/18 20:15 04/11/18 20:15 04/11/18 21:43 04/11/18 20:26 04/11/18 21:43 Internal Med - H&P Results - Labs CBC & Chem 7: 04/11/18 14:35 04/11/18 14:35 Labs: Short CBC 04/11/18 Range/Units 14:35 WBC 11.8 H D (4.3-11.1) K/mcL Hgb 12.0 L D (12.9-16.9) g/dL Hct 38.6 (37.5-50.1) % Plt Count 313 (140-400) K/mcL Neutrophils # 9.9 H (1.6-8.9) K/mcL BMP 04/11/18 14:35 Sodium 136 Potassium 3.7 Chloride 92 L Carbon Dioxide 32 H BUN 20 Creatinine 0.59 L Glucose 72 Calcium 9.8 Cardiac Enzymes 11/21/18 Range/Units 14:35 Troponin I < 0.03 (< 0.04) ng/mL Urine 04/11/18 Range/Units 17:57 Urine Color Yellow (Yellow) Urine Clarity Clear (Clear) Urine pH 7.0 (5.0-8.0) pH Units Ur Specific [place] 1.022 (1.010-1.025) Urine Protein Negative (Neg-Trace) mg/dL Urine Glucose (UA) Normal (Normal) mg/dL - Impressions ITS Impressions Chest X-Ray 04/11/18 14:18 IMPRESSION: 1. Stable chest x-ray with linear densities involving the lower lung zones likely representing scarring. D/ / Haim Pyle MD / Haim Pyle MD Interpreting Provider: Haim Pyle MD Chest CT 04/11/18 16:02 IMPRESSION: Increased left lower lobe opacity superimposed upon chronic changes likely represents pneumonia. D/ / 04/11/2018 18:10:52 Sulaiman Centeno MD / Nori Greenberg Interpreting Provider: Sulaiman Centeno MD - Time Spent With Patient Total time spent is greater than 50% in coordination of care (as documented) at patient's floor/unit and/or counseling patient: - Attending Attestation I performed a history and physical examination of the patient and discussed my findings with the resident. I reviewed the resident's note and agree with assessment and plan. In short patient is a 58-year-old male with multiple comorbidities including COPD on 4 L home O2, heart failure with preserved eje ction fraction and PE on anticoagulation who was discharged from the hospital earlier today following treatment of COPD exacerbation. After returning home patient reports having considerable dyspnea upon exertion while ambulating in his house. After attempting to recover from his dyspnea using his BiPAP patient contacted his home health aide who arrived at his residence noting the patient remained hypoxic saturating at 88% while on BiPAP. Patient was subsequently advised to come into the ED for further evaluation. Patient found to be febrile, tachypneic with findings on CT of the chest suggesting a left lower lobe pneumonia. Patient met criteria for severe sepsis with additional findings of a elevated lactic acid of 2.3. Patient received 2 L of fluid boluses with repeat lactic acid now having resolved. Patient admitted for healthcare associated pneumonia now stable from a respiratory and hemodynamic standpoint. Continue with IV antibiotics, DuoNeb's and steroids.
[2018-04-11] MEDS: Budesonide/Formoterol 80/4.5 MDI IH SCH (21:41)
[2018-04-11] MEDS ORDERED: 0.9 % Sodium Chloride 1,000 ML IVC SCH (22:30)
[2018-04-11] MEDS: Gabapentin 300 MG CAPSULE PO SCH (23:31)
[2018-04-11] MEDS: MethylPREDNISolone 40 MG/ML VIAL IVP SCH (23:43)
[2018-04-12] MEDS: Piperacillin/Tazobactam 3.375 GM in 0.9 % Sodium Chloride Mini Bag 100 ML IVPB SCH ×3 (01:04→16:02)
[2018-04-12] MEDS: MethylPREDNISolone 40 MG/ML VIAL IVP SCH ×3 (06:03→18:18)
[2018-04-12 06:49] LABS: Hematocrit 31.8 % (37.5-50.1); Immature Granulocytes % 0.7 % (0-4); Lymphocytes # 0.7 K/mcL (0.6-4.6); Lymphocytes % 8.6 %; Mean Corpuscular HGB Conc 30.5 g/dL (31.6-35.5); Mean Corpuscular Hemoglobin 26.4 pg (28.0-33.3); Mean Corpuscular Volume 86.6 fL (83.0-100.0); Mean Platelet Volume 9.8 fL (9.4-12.4); Monocytes # 0.1 K/mcL (0.0-1.3); Monocytes % 0.7 %; Neutrophils # 6.9 K/mcL (1.6-8.9); Platelet Count 306 K/mcL (140-400); Red Blood Count 3.67 M/mcL (4.19-5.50); Red Cell Distribution Width 15.4 % (11.5-14.5)
[2018-04-12 06:50] LABS: Hemoglobin 9.7 g/dL (12.9-16.9)
[2018-04-12 07:08] LABS: BUN/Creatinine Ratio 33 (6-26); Blood Urea Nitrogen 18 mg/dL (6-20); Calcium 8.4 mg/dL (8.6-10.3); Carbon Dioxide 29 mEq/L (23-29); Chloride 101 mEq/L (98-107); Glucose 205 mg/dL (70-105); Osmolality,Calculated 290 (280-300); Potassium 4.2 mEq/L (3.5-5.1); Sodium 136 mEq/L (136-145); eGFR For Non-African Americans > 60 (> 60)
[2018-04-12 07:11] LABS: Platelet Estimate Normal (Normal)
[2018-04-12] MEDS: Loratadine 10 MG TABLET PO SCH (08:57)
[2018-04-12] MEDS: Furosemide 20 MG TABLET PO SCH ×3 (08:57→18:18)
[2018-04-12] MEDS: Gabapentin 300 MG CAPSULE PO SCH ×3 (08:57→20:10)
[2018-04-12] MEDS: (Roflumilast [Daliresp] 500 MCG) PO SCH (08:58)
[2018-04-12] MEDS ORDERED: Vancomycin (wt based) 1,000 MG VIAL IVPB SCH (09:00)
[2018-04-12] MEDS: Budesonide/Formoterol 80/4.5 MDI IH SCH ×2 (11:07→20:24)
--- NOTE | 2018-04-12 12:20 | Internal Med Progress Note ---
Hospitalist Progress Note - Encounter Date of Encounter: 04/12/18 Time of Encounter: 09:00 - Subjective Interval History: Pt still has SOB and cough. With thick sputum. In mild respiratory distress. No fever over night. - Exam Vitals: Temp Pulse Resp BP Pulse Ox 98.4 F 86 16 126/71 95 04/12/18 11:22 04/12/18 11:22 04/12/18 11:22 04/12/18 11:22 04/12/18 11:22 Exam: GEN: AAOx3; Mild respiratory distress; HEENT: Atraumatic, normocephalic; nasal congestion; mucous membranes moist; EOMI CARDIO: RRR, no murmurs, rubs, gallops RESP: Coarse breath sounds b/l; Scattered wheeze/rhonchi on RL and LL lung carmen; no crackles ABD: Soft, non-tender, non-distended, bowel sounds present NEURO: CN 2-12 intact; no focal deficits EXT: No LE edema b/l - Assessment and Plan (1) Pneumonia Current Visit: Yes Status: Acute Assessment and Plan: CT shows LLL pneumonia, pt has fever, leukocytosis, cough, and sputum. Recent hospitalization. Will treat him as HAP. - Cont vanco and zosyn - MRSA scree, f/u blood culture to deescalate abx. - Legionella/strep Pneum test negative - Cont O2 supportive treatment. (2) Sepsis Current Visit: Yes Status: Resolved Assessment and Plan: Resolved after treatment, most likely due to pneumonia. - WBC, temperature, lactate back to normal level. Tachycardia resolved. - Continue antibiotic for pneumonia, DC IV fluid. (3) Acute and chronic respiratory failure with hypoxia Current Visit: No Status: Acute Assessment and Plan: Caused by pneumonia and a COPD exacerbation. - Continue treatment underlying disease - Continue supportive treatment with oxygen and BiPAP during night (4) COPD exacerbation Current Visit: No Status: Acute Assessment and Plan: We will treat patient with antibiotic, steroid, and bronchodilator. (5) DVT prophylaxis Current Visit: No Status: Acute Assessment and Plan: Pt is on Xarelto (6) Obesity (BMI 30.0-34.9) Current Visit: No Status: Acute Assessment and Plan: Continue lifestyle modification as outpatient (7) Obstructive sleep apnea Current Visit: No Status: Acute Assessment and Plan: Continue BiPAP during night (8) Diastolic CHF Current Visit: No Status: Chronic Assessment and Plan: Appears euvolemic at this point. Continue home medications (9) History of pulmonary embolism Current Visit: No Status: Chronic Assessment and Plan: On xarelto, will continue DVT Prophylaxis: On Xarelto - Time Spent with Patient Total time spent is greater than 50% in coordination of care (as documented) at patient's floor/unit and/or counseling patient: 40 minutes Greater than 35 minutes Plan of Care Discussed with: patient Internal Medicine: Result - Labs CBC & Chem 7: 04/12/18 06:10 04/12/18 06:10 Labs: Short CBC 04/11/18 04/12/18 Range/Units 14:35 06:10 WBC 11.8 H D 7.7 (4.3-11.1) K/mcL Hgb 12.0 L D 9.7 L D (12.9-16.9) g/dL Hct 38.6 31.8 L (37.5-50.1) % Plt Count 313 306 (140-400) K/mcL Neutrophils # 9.9 H 6.9 (1.6-8.9) K/mcL BMP 04/11/18 04/12/18 14:35 06:10 Sodium 136 136 Potassium 3.7 4.2 Chloride 92 L 101 Carbon Dioxide 32 H 29 BUN 20 18 Creatinine 0.59 L 0.54 L Glucose 72 205 H Calcium 9.8 8.4 L Cardiac Enzymes 04/11/18 Range/Units 14:35 Troponin I < 0.03 (< 0.04) ng/mL Urine 04/11/18 Range/Units 17:57 Urine Color Yellow (Yellow) Urine Clarity Clear (Clear) Urine pH 7.0 (5.0-8.0) pH Units Ur Specific [place] 1.022 (1.010-1.025) Urine Protein Negative (Neg-Trace) mg/dL Urine Glucose (UA) Normal (Normal) mg/dL - Impressions Impressions Chest X-Ray 04/11/18 14:18 IMPRESSION: 1. Stable chest x-ray with linear densities involving the lower lung zones likely representing scarring. D/ / Haim Pyle MD / Haim Pyle MD Interpreting Provider: Haim Pyle MD Chest CT 04/11/18 16:02 IMPRESSION: Increased left lower lobe opacity superimposed upon chronic changes likely represents pneumonia. D/ / 04/11/2018 18:10:52 Sulaiman Centeno MD / Nori Greenberg Interpreting Provider: Sulaiman Centeno MD Consult Discharge Plan - Plan Referrals: Nilson Campa [Primary Care Provider] - (1) Pneumonia Qualifiers: Pneumonia type: due to unspecified organism Laterality: left Lung location: lower lobe of lung Qualified Code(s): J18.1 - Lobar pneumonia, unspecified organism (2) Sepsis Qualifiers: Sepsis type: sepsis due to unspecified organism Qualified Code(s): A41.9 - Sepsis, unspecified organism (8) Diastolic CHF Qualifiers: Heart failure chronicity: chronic Qualified Code(s): I50.32 - Chronic di astolic (congestive) heart failure
[2018-04-12] MEDS ORDERED: D5% in Water 1,000 ML IVC PRN (13:26)
[2018-04-12] MEDS ORDERED: Dextrose Gel 15 GM/37.5 ML TUBE PO PRN ×2 (13:26)
[2018-04-12] MEDS ORDERED: *HR* Dextrose 50 % in Water (Syg) 50 ML SYRINGE IVP PRN (13:26)
[2018-04-12] MEDS ORDERED: Acetaminophen 325 MG TABLET PO PRN (13:30)
[2018-04-12] MEDS: Ipratropium/Albuterol Neb 3 ML IH SCH ×2 (16:01→20:24)
[2018-04-12] MEDS: *HR* HYDROcodone/Acet 5/325 mg TABLET PO PRN (16:01)
[2018-04-12] MEDS ORDERED: Simethicone 80 MG TAB.CHEW PO STA (16:18)
[2018-04-12] MEDS: *HR* Rivaroxaban 10 MG TABLET PO SCH (18:18)
[2018-04-12] MEDS: Insulin LISPRO 300 UNITS/3 ML VIAL SQ SCH ×2 (18:20→20:11)
[2018-04-13] MEDS: MethylPREDNISolone 40 MG/ML VIAL IVP SCH ×3 (00:07→12:02)
[2018-04-13] MEDS: Piperacillin/Tazobactam 3.375 GM in 0.9 % Sodium Chloride Mini Bag 100 ML IVPB SCH ×3 (00:08→15:36)
[2018-04-13] MEDS: Ipratropium/Albuterol Neb 3 ML IH SCH ×7 (00:28→23:37)
[2018-04-13 03:52] LABS: Basophils % 0.1 %; Hematocrit 29.2 % (37.5-50.1); Immature Granulocytes % 0.9 % (0-4); Lymphocytes # 0.7 K/mcL (0.6-4.6); Mean Corpuscular HGB Conc 30.8 g/dL (31.6-35.5); Mean Corpuscular Hemoglobin 26.5 pg (28.0-33.3); Mean Corpuscular Volume 85.9 fL (83.0-100.0); Mean Platelet Volume 9.8 fL (9.4-12.4); Monocytes # 0.3 K/mcL (0.0-1.3); Monocytes % 2.5 %; Platelet Count 317 K/mcL (140-400); Red Cell Distribution Width 15.2 % (11.5-14.5); Segmented Neutrophils % 89.5 %
[2018-04-13 04:08] LABS: Vancomycin,Trough 14 mcg/mL (5-10)
[2018-04-13 04:43] LABS: BUN/Creatinine Ratio 27 (6-26); Blood Urea Nitrogen 17 mg/dL (6-20); Calcium 8.4 mg/dL (8.6-10.3); Carbon Dioxide 30 mEq/L (23-29); Chloride 102 mEq/L (98-107); Glucose 252 mg/dL (70-105); Osmolality,Calculated 300 (280-300); Potassium 3.9 mEq/L (3.5-5.1); Sodium 140 mEq/L (136-145); eGFR For Non-African Americans > 60 (> 60)
[2018-04-13] MEDS: Budesonide/Formoterol 80/4.5 MDI IH SCH ×2 (07:49→20:34)
[2018-04-13] MEDS: Insulin LISPRO 300 UNITS/3 ML VIAL SQ SCH ×4 (08:21→20:29)
[2018-04-13] MEDS: Furosemide 20 MG TABLET PO SCH ×3 (08:21→17:43)
[2018-04-13] MEDS: Loratadine 10 MG TABLET PO SCH (08:22)
[2018-04-13] MEDS: Gabapentin 300 MG CAPSULE PO SCH ×3 (08:22→20:26)
[2018-04-13] MEDS: (Roflumilast [Daliresp] 500 MCG) PO SCH (08:23)
[2018-04-13] MEDS: *HR* HYDROcodone/Acet 5/325 mg TABLET PO PRN (08:30)
[2018-04-13] MEDS ORDERED: Aminoglycoside Consult 1 EACH MC ONE (09:02)
--- NOTE | 2018-04-13 14:17 | Internal Med Progress Note ---
Hospitalist Progress Note - Encounter Date of Encounter: 04/13/18 Time of Encounter: 09:00 - Subjective Interval History: Pt still has SOB and cough. Slightly improved. With thick sputum. Still in mild respiratory distress. No fever over night. - Exam Vitals: Temp Pulse Resp BP Pulse Ox 98.3 F 70 16 115/73 94 04/13/18 07:20 04/13/18 11:56 04/13/18 11:56 04/13/18 11:56 04/13/18 11:56 Exam: GEN: AAOx3; Mild respiratory distress; HEENT: Atraumatic, normocephalic; nasal congestion; mucous membranes moist; EOMI CARDIO: RRR, no murmurs, rubs, gallops RESP: Coarse breath sounds b/l; Scattered rhonchi on RL and LL lung carmen; no crackles ABD: Soft, non-tender, non-distended, bowel sounds present NEURO: CN 2-12 intact; no focal deficits EXT: No LE edema b/l - Assessment and Plan (1) Pneumonia Current Visit: Yes Status: Acute Assessment and Plan: CT shows LLL pneumonia, pt has fever, leukocytosis, cough, and sputum. Recent hospitalization. Will treat him as HAP. - Cont zosyn, dc vanco as MRSA screen negative - Legionella/strep Pneum test negative - Cont O2 supportive treatment. (2) Sepsis Current Visit: Yes Status: Resolved Assessment and Plan: Resolved after treatment, most likely due to pneumonia. - WBC, temperature, lactate back to normal level. Tachycardia resolved. - Continue antibiotic for pneumonia. (3) Acute and chronic respiratory failure with hypoxia Current Visit: No Status: Acute Assessment and Plan: Caused by pneumonia and COPD exacerbation. - Continue treatment underlying disease - Continue supportive treatment with oxygen and BiPAP during night (4) COPD exacerbation Current Visit: No Status: Acute Assessment and Plan: We will treat patient with antibiotic, steroid, and bronchodilator. Taper down steroid now. (5) DVT prophylaxis Current Visit: No Status: Acute Assessment and Plan: Pt is on Xarelto (6) Obesity (BMI 30.0-34.9) Current Visit: No Status: Acute Assessment and Plan: Continue lifestyle modification as outpatient (7) Obstructive sleep apnea Current Visit: No Status: Acute Assessment and Plan: Continue BiPAP during night (8) Diastolic CHF Current Visit: No Status: Chronic Assessment and Plan: Appears euvolemic at this point. Continue home medications (9) History of pulmonary embolism Current Visit: No Status: Chronic Assessment and Plan: On xarelto, will continue DVT Prophylaxis: On Xarelto - Time Spent with Patient Total time spent is greater than 50% in coordination of care (as documented) at patient's floor/unit and/or counseling patient: 30 min 25 - 35 minutes Plan of Care Discussed with: patient Internal Medicine: Result - Labs CBC & Chem 7: 04/13/18 03:23 04/13/18 03:23 Labs: Short CBC 04/13/18 Range/Units 03:23 WBC 10.1 (4.3-11.1) K/mcL Hgb 9.0 L (12.9-16.9) g/dL Hct 29.2 L (37.5-50.1) % Plt Count 317 (140-400) K/mcL Neutrophils # 9.0 H (1.6-8.9) K/mcL BMP 04/13/18 03:23 Sodium 140 Potassium 3.9 Chloride 102 Carbon Dioxide 30 H BUN 17 Creatinine 0.62 L Glucose 252 H Calcium 8.4 L Consult Discharge Plan - Plan Referrals: Nilson Campa [Primary Care Provider] - (1) Pneumonia Qualifiers: Pneumonia type: due to unspecified organism Laterality: left Lung location: lower lobe of lung Qualified Code(s): J18.1 - Lobar pneumonia, unspecified organism (2) Sepsis Qualifiers: Sepsis type: sepsis due to unspecified organism Qualified Code(s): A41.9 - Sepsis, unspecified organism (8) Diastolic CHF Qualifiers: Heart failure chronicity: chronic Qualified Code(s): I50.32 - Chronic diastolic (congestive) heart failure
[2018-04-13] MEDS ORDERED: MethylPREDNISolone 40 MG/ML VIAL IVP SCH (16:00)
[2018-04-13] MEDS: *HR* Rivaroxaban 10 MG TABLET PO SCH (17:43)
[2018-04-13] MEDS: Cefepime HCl 2,000 MG in Water for inj. (sterile) 20 ML 20 ML IVP SCH (18:22)
[2018-04-14] MEDS: Cefepime HCl 2,000 MG in Water for inj. (sterile) 20 ML 20 ML IVP SCH ×3 (00:06→16:43)
[2018-04-14] MEDS: MethylPREDNISolone 40 MG/ML VIAL IVP SCH ×2 (00:06→12:39)
[2018-04-14] MEDS: Ipratropium/Albuterol Neb 3 ML IH SCH ×6 (03:53→23:35)
[2018-04-14] MEDS: Furosemide 20 MG TABLET PO SCH ×3 (07:41→16:50)
[2018-04-14] MEDS: Gabapentin 300 MG CAPSULE PO SCH ×3 (07:41→20:14)
[2018-04-14] MEDS: Loratadine 10 MG TABLET PO SCH (07:41)
[2018-04-14] MEDS: Insulin LISPRO 300 UNITS/3 ML VIAL SQ SCH ×5 (07:44→20:15)
[2018-04-14] MEDS: Budesonide/Formoterol 80/4.5 MDI IH SCH ×2 (07:46→20:22)
[2018-04-14] MEDS: (Roflumilast [Daliresp] 500 MCG) PO SCH (07:54)
--- NOTE | 2018-04-14 11:49 | Internal Med Progress Note ---
Hospitalist Progress Note - Encounter Date of Encounter: 04/14/18 Time of Encounter: 09:00 - Subjective Interval History: Pt still has SOB and cough. Slightly improved. With thick sputum. Still in mild respiratory distress and on BiPAP overnight. No fever over night. - Exam Vitals: Temp Pulse Resp BP Pulse Ox 98.1 F 64 14 119/80 96 04/14/18 07:13 04/14/18 07:13 04/14/18 07:49 04/14/18 07:13 04/14/18 07:49 Exam: GEN: AAOx3; Mild respiratory distress; HEENT: Atraumatic, normocephalic; nasal congestion; mucous membranes moist; EOMI CARDIO: RRR, no murmurs, rubs, gallops RESP: Coarse breath sounds b/l; Scattered rhonchi on RL and LL lung carmen; no crackles ABD: Soft, non-tender, non-distended, bowel sounds present NEURO: CN 2-12 intact; no focal deficits EXT: No LE edema b/l - Assessment and Plan (1) Pneumonia Current Visit: Yes Status: Acute Assessment and Plan: CT shows LLL pneumonia, pt has fever, leukocytosis, cough, and sputum. Recent hospitalization. Will treat him as HAP. - Switch abx to cefepime as MRSA and blood culture negative so far. - Legionella/strep Pneum test negative - Cont O2 supportive treatment. (2) Sepsis Current Visit: Yes Status: Resolved Assessment and Plan: Resolved after treatment, most likely due to pneumonia. - WBC, temperature, lactate back to normal level. Tachycardia resolved. - Continue antibiotic for pneumonia. (3) Acute and chronic respiratory failure with hypoxia Current Visit: No Status: Acute Assessment and Plan: Caused by pneumonia and COPD exacerbation. - Continue treatment underlying disease - Continue supportive treatment with oxygen and BiPAP during night (4) COPD exacerbation Current Visit: No Status: Acute Assessment and Plan: We will treat patient with antibiotic, steroid, and bronchodilator. Taper down steroid gradually. (5) DVT prophylaxis Current Visit: No Status: Acute Assessment and Plan: Pt is on Xarelto (6) Obesity (BMI 30.0-34.9) Current Visit: No Status: Acute Assessment and Plan: Continue lifestyle modification as outpatient (7) Obstructive sleep apnea Current Visit: No Status: Acute Assessment and Plan: Continue BiPAP during night (8) Diastolic CHF Current Visit: No Status: Chronic Assessment and Plan: Appears euvolemic at this point. Continue home medications (9) History of pulmonary embolism Current Visit: No Status: Chronic Assessment and Plan: On xarelto, will continue DVT Prophylaxis: On Xarelto - Time Spent with Patient Total time spent is greater than 50% in coordination of care (as documented) at patient's floor/unit and/or counseling patient: 30 min 25 - 35 minutes Plan of Care Discussed with: patient Internal Medicine: Result - Labs CBC & Chem 7: 04/13/18 03:23 04/13/18 03:23 Consult Discharge Plan - Plan Referrals: Nilson Campa [Primary Care Provider] - (1) Pneumonia Qualifiers: Pneumonia type: due to unspecified organism Laterality: left Lung location: lower lobe of lung Qualified Code(s): J18.1 - Lobar pneumonia, unspecified organism (2) Sepsis Qualifiers: Sepsis type: sepsis due to unspecified organism Qualified Code(s): A41.9 - Sepsis, unspecified organism (8) Diastolic CHF Qualifiers: Heart failure chronicity: chronic Qualified Code(s): I50.32 - Chronic diastolic (congestive) heart failure
[2018-04-14] MEDS: *HR* Rivaroxaban 10 MG TABLET PO SCH (16:49)
[2018-04-14] MEDS: *HR* HYDROcodone/Acet 5/325 mg TABLET PO PRN (20:17)
[2018-04-15] MEDS: Cefepime HCl 2,000 MG in Water for inj. (sterile) 20 ML 20 ML IVP SCH ×3 (00:07→16:32)
[2018-04-15] MEDS: MethylPREDNISolone 40 MG/ML VIAL IVP SCH ×2 (00:07→12:40)
[2018-04-15] MEDS: Ipratropium/Albuterol Neb 3 ML IH SCH ×5 (04:08→20:24)
[2018-04-15 04:40] LABS: Hematocrit 31.6 % (37.5-50.1); Hemoglobin 9.7 g/dL (12.9-16.9); Immature Granulocytes % 1.3 % (0-4); Lymphocytes # 0.6 K/mcL (0.6-4.6); Lymphocytes % 10.4 %; Mean Corpuscular HGB Conc 30.7 g/dL (31.6-35.5); Mean Corpuscular Hemoglobin 26.8 pg (28.0-33.3); Mean Corpuscular Volume 87.3 fL (83.0-100.0); Mean Platelet Volume 9.6 fL (9.4-12.4); Monocytes # 0.2 K/mcL (0.0-1.3); Monocytes % 2.7 %; Neutrophils # 5.1 K/mcL (1.6-8.9); Platelet Count 376 K/mcL (140-400); Red Blood Count 3.62 M/mcL (4.19-5.50); Red Cell Distribution Width 15.5 % (11.5-14.5); Segmented Neutrophils % 85.6 %
[2018-04-15 04:58] LABS: BUN/Creatinine Ratio 35 (6-26); Blood Urea Nitrogen 23 mg/dL (6-20); Calcium 8.7 mg/dL (8.6-10.3); Carbon Dioxide 36 mEq/L (23-29); Chloride 97 mEq/L (98-107); Glucose 182 mg/dL (70-105); Osmolality,Calculated 292 (280-300); Potassium 4.4 mEq/L (3.5-5.1); Sodium 137 mEq/L (136-145); eGFR For Non-African Americans > 60 (> 60)
[2018-04-15] MEDS ORDERED: GuaiFENesin Liq 200 MG/10 ML UDC PO PRN (07:51)
[2018-04-15] MEDS: Insulin LISPRO 300 UNITS/3 ML VIAL SQ SCH ×4 (09:10→20:48)
[2018-04-15] MEDS: Loratadine 10 MG TABLET PO SCH (09:12)
[2018-04-15] MEDS: Gabapentin 300 MG CAPSULE PO SCH ×3 (09:12→19:51)
[2018-04-15] MEDS: Furosemide 20 MG TABLET PO SCH ×3 (09:13→16:32)
[2018-04-15] MEDS: (Roflumilast [Daliresp] 500 MCG) PO SCH (09:14)
--- NOTE | 2018-04-15 09:58 | Pulmonology Consult Note ---
Date of Encounter: 04/15/18 Time of Encounter: 10:00 Assessment and Plan (1) Acute and chronic respiratory failure Current Visit: No Status: Acute Patient was in acute on chronic hypoxic hypercapnic respiratory failure secondary to pneumonia, COPD exacerbation complicated by a hydrostatic edema due to acute on chronic diastolic heart failure. There is any mental status changes we will recommend checking ABG. Patient will benefit from BiPAP therapy during naps during the day and BiPAP therapy during the night. Qualifiers: Respiratory failure complication: hypoxia and hypercapnia Qualified Code(s): J96.21 - Acute and chronic respiratory failure with hypoxia; J96.22 - Acute and chronic respiratory failure with hypercapnia (2) Pneumonia Current Visit: No Status: Acute Patient says that sometimes when he for suspected aspiration pneumonia we will recommend a formal speech consult and a swallow eval to rule out any aspiration. To add some anaerobic and atypical coverage but patient pneumonia is getting better. And agree with their primary team assessment and management so far. Patient was encouraged to do incentive spirometry requested respiratory therapist to give flutter valve so he can bring up the sputum better we will send the sputum for culture and Gram stain. Qualifiers: Pneumonia type: aspiration pneumonia Laterality: left Lung location: lower lobe of lung Qualified Code(s): J69.0 - Pneumonitis due to inhalation of food and vomit (3) Diastolic CHF Current Visit: No Status: Chronic To continue diuresis as per primary team Qualifiers: Heart failure chronicity: acute on chronic Qualified Code(s): I50.33 - Acute on chronic diastolic (congestive) heart failure (4) Obstructive sleep apnea Current Visit: No Status: Acute To continue BIPAP during Night and during naps (5) COPD with exacerbation Current Visit: Yes Status: Acute To continue scheduled bronchodilators and steroids (6) Pulmonary embolism Current Visit: Yes Status: Chronic To continue anticoagulant Qualifiers: Acute cor pulmonale presence: without acute cor pulmonale Qualified Code(s): I26.99 - Other pulmonary embolism without acute cor pulmonale History of Present Illness Consult date: 04/15/18 Requesting physician: Dorinda Stuart Reason for consult: COPD, pneumonia Chief complaint: Shortness of breath History of present illness: 58-year-old male with past medical history of obesity, chronic hypoxic respiratory failure, COPD with chronic bronchitis, diastolic heart failure comes here with worsening shortness of breath patient was recently treated for pneumonia. Patient denies any chest pain denies any chest tightness on presentation but during the hospital course has on and off chest tightness. Patient had previous PE on Xarelto then he was taking anticoagulants. Patient denies any palpitation or syncope. Patient denies any GERD or neuro deficit symptoms pulmonary was consult that evaluation of this COPD exacerbation and pneumonia to help with better strategies of managing this acute on chronic hypoxic hypercapnic respiratory failure patient also have COPD and MYNOR overlap syndrome. Patient is on BiPAP at night. Past Med Surg Social Fam HX - Past Medical History Medical history: CHF, COPD, hyperlipidemia, hypertension, pulmonary embolus Additional medical history: umbilical hernia Psychiatric history: anxiety, depression - Past Surgical History Surgical History: no surgical history - Social History Smoking Status: Former smoker Smokeless Tobacco Status: No Alcohol use: none Drug use: none - Family History Father Living Status: Hx Family Cancer: Yes (colon) Mother Living Status: Hx Family Cancer: Yes Medications and Allergies Oxygen 4 l NS CONT 07/25/17 [History] Roflumilast [Daliresp] 500 mcg PO DAILY 07/25/17 [History] Furosemide [Lasix] 40 mg PO TID #90 tab 09/20/17 [Rx] Omeprazole [PriLOSEC] 20 mg PO 0730 09/30/17 [History] Loratadine [Claritin] 10 mg PO DAILY #30 tablet 11/09/17 [Rx] Gabapentin [Neurontin] 300 mg PO TID 12/31/17 [History] Albuterol Sulfate [Albuterol Inhaler] 2 puff IH Q4H PRN #1 inhaler 01/17/18 [Rx] Rivaroxaban [Xarelto] 20 mg PO DAILY@1700 03/06/18 [History] GuaiFENesin ER [Mucinex] 600 mg PO BID #30 tbbp.12hr 03/22/18 [Rx] Amoxicillin/Clavulanate [Augmentin] 500 mg PO BIDWM #10 tablet 04/11/18 [Rx] Fluticasone/Salmeterol [Advair Hfa 115-21 Mcg Inhaler] 2 puff IH BID 04/11/18 [History] Ipratropium/Albuterol Sulfate [Iprat-Albut 0.5-3(2.5) mg/3 ml] 1 vial IH Q4H PRN 04/11/18 [History] Potassium Chloride 20 meq PO DAILY #30 tab.er.prt 04/11/18 [Rx] Allergy/AdvReac Type Severity Reaction Status Date / Time levofloxacin AdvReac Blurry Verified 03/20/18 13:24 [employer] Systems: The remainder of the systems were reviewed and are negative Physical Examination Vital Signs: Vital Signs, Last 4 Hours Temp Pulse Resp BP Pulse Ox 04/15/18 08:05 13 98 04/15/18 07:15 97.2 F L 67 16 138/82 98 Effort: mildly labored Auscultation: left: diminished breath sounds, bilateral: wheezes Results - Laboratory Findings CBC and BMP: 04/15/18 04:00 04/15/18 04:00 Abnormal lab findings: Abnormal lab results RBC 3.62 M/mcL (4.19-5.50) L 04/15/18 04:00 Hgb 9.7 g/dL (12.9-16.9) L 04/15/18 04:00 Hct 31.6 % (37.5-50.1) L 04/15/18 04:00 MCH 26.8 pg (28.0-33.3) L 04/15/18 04:00 MCHC 30.7 g/dL (31.6-35.5) L 04/15/18 04:00 RDW 15.5 % (11.5-14.5) H 04/15/18 04:00 Chloride 97 mEq/L (98-107) L 04/15/18 04:00 Carbon Dioxide 36 mEq/L (23-29) H 04/15/18 04:00 BUN 23 mg/dL (6-20) H 04/15/18 04:00 Creatinine 0.65 mg/dL (0.70-1.30) L 04/15/18 04:00 BUN/Creatinine Ratio 35 (6-26) H 04/15/18 04:00 Glucose 182 mg/dL (70-105) H 04/15/18 04:00 POC Glucose 157 mg/dL (70-99) H 04/14/18 16:05 Vancomycin Trough 14 mcg/mL (5-10) H 04/13/18 03:23 - Clinical Findings Intake & Output: Intake & Output 04/14/18 04/15/18 04/15/18 23:59 07:59 15:59 Intake Total 480 / 480 480 / 480 Output Total 725 / 725 490 / 490 Balance -245 / -245 -470 / -470 480 / 480 Weight 96.2 kg Consult Discharge Plan - Plan Referrals: Nilson Campa [Primary Care Provider] -
[2018-04-15] MEDS ORDERED: MetroNIDAZOLE 500 MG/100 ML 500 MG/100 ML BAG IVPB SCH (11:08)
[2018-04-15] MEDS: Budesonide/Formoterol 80/4.5 MDI IH SCH ×2 (11:24→20:24)
--- NOTE | 2018-04-15 12:16 | Internal Med Progress Note ---
Hospitalist Progress Note - Encounter Date of Encounter: 04/15/18 Time of Encounter: 09:00 - Subjective Interval History: Pt still has SOB and cough. Slow progression. Still in mild respiratory distress and on BiPAP overnight. No fever over night. - Exam Vitals: Temp Pulse Resp BP Pulse Ox 97.2 F L 67 13 138/82 98 04/15/18 07:15 04/15/18 07:15 04/15/18 08:05 04/15/18 07:15 04/15/18 08:05 Exam: GEN: AAOx3; Mild respiratory distress; HEENT: Atraumatic, normocephalic; nasal congestion; mucous membranes moist; EOMI CARDIO: RRR, no murmurs, rubs, gallops RESP: Coarse breath sounds b/l; Scattered rhonchi/wheezes on RL and LL lung carmen; no crackles ABD: Soft, non-tender, non-distended, bowel sounds present NEURO: CN 2-12 intact; no focal deficits EXT: No LE edema b/l - Assessment and Plan (1) Pneumonia Current Visit: Yes Status: Acute Assessment and Plan: CT shows LLL pneumonia, pt has fever, leukocytosis, cough, and sputum. Recent hospitalization. Will treat him as HAP. - Switch abx to cefepime as MRSA and blood culture negative so far. Abx day 5 - Legionella/strep Pneum test negative - Cont O2 supportive treatment. (2) Sepsis Current Visit: Yes Status: Resolved Assessment and Plan: Resolved after treatment, most likely due to pneumonia. - WBC, temperature, lactate back to normal level. Tachycardia resolved. - Continue antibiotic for pneumonia. (3) Acute and chronic respiratory failure with hypoxia Current Visit: No Status: Acute Assessment and Plan: Caused by pneumonia and COPD exacerbation. - Continue treatment underlying disease - Continue supportive treatment with oxygen and BiPAP during night - Slow progression, will consult pulmonology for recommendations. (4) COPD exacerbation Current Visit: No Status: Acute Assessment and Plan: We will treat patient with antibiotic, steroid, and bronchodilator. Taper down steroid gradually. (5) DVT prophylaxis Current Visit: No Status: Acute Assessment and Plan: Pt is on Xarelto (6) Obesity (BMI 30.0-34.9) Current Visit: No Status: Acute Assessment and Plan: Continue lifestyle modification as outpatient (7) Obstructive sleep apnea Current Visit: No Status: Acute Assessment and Plan: Continue BiPAP during night (8) Diastolic CHF Current Visit: No Status: Chronic Assessment and Plan: Appears euvolemic at this point. Continue home medications po lasix. (9) History of pulmonary embolism Current Visit: No Status: Chronic Assessment and Plan: On xarelto, will continue DVT Prophylaxis: On Xarelto - Summary of Assessment and Plan Summary of Assessment and Plan: PT/OT recommend ECF discharge, will consult SW - Time Spent with Patient Total time spent is greater than 50% in coordination of care (as documented) at patient's floor/unit and/or counseling patient: 30 min 25 - 35 minutes Plan of Care Discussed with: patient Internal Medicine: Result - Labs CBC & Chem 7: 04/15/18 04:00 04/15/18 04:00 Labs: Short CBC 04/15/18 Range/Units 04:00 WBC 5.9 (4.3-11.1) K/mcL Hgb 9.7 L (12.9-16.9) g/dL Hct 31.6 L (37.5-50.1) % Plt Count 376 (140-400) K/mcL Neutrophils # 5.1 (1.6-8.9) K/mcL BMP 04/15/18 04:00 Sodium 137 Potassium 4.4 Chloride 97 L Carbon Dioxide 36 H BUN 23 H Creatinine 0.65 L Glucose 182 H Calcium 8.7 Consult Discharge Plan - Plan Referrals: Nilson Campa [Primary Care Provider] - (1) Pneumonia Qualifiers: Pneumonia type: due to unspecified organism Laterality: left Lung location: lower lobe of lung Qualified Code(s): J18.1 - Lobar pneumonia, unspecified organism (2) Sepsis Qualifiers: Sepsis type: sepsis due to unspecified organism Qualified Code(s): A41.9 - Sepsis, unspecified organism (8) Diastolic CHF Qualifiers: Heart failure chronicity: chronic Qualified Code(s): I50.32 - Chronic diastolic (congestive) heart failure
[2018-04-15] MEDS: Doxycycline 100 MG in 0.9 % Sodium Chloride Mini Bag 100 ML IVPB SCH ×2 (12:41→16:34)
[2018-04-15] MEDS: *HR* HYDROcodone/Acet 5/325 mg TABLET PO PRN ×2 (12:44→19:51)
[2018-04-15] MEDS: *HR* Rivaroxaban 10 MG TABLET PO SCH (16:32)
[2018-04-15] MEDS: MetroNIDAZOLE 500 MG/100 ML 500 MG/100 ML BAG IVPB SCH (20:49)
[2018-04-16] MEDS: Ipratropium/Albuterol Neb 3 ML IH SCH ×6 (00:07→19:45)
[2018-04-16] MEDS: Cefepime HCl 2,000 MG in Water for inj. (sterile) 20 ML 20 ML IVP SCH ×3 (00:13→15:40)
[2018-04-16] MEDS: MethylPREDNISolone 40 MG/ML VIAL IVP SCH ×2 (00:13→12:56)
[2018-04-16] MEDS: MetroNIDAZOLE 500 MG/100 ML 500 MG/100 ML BAG IVPB SCH (04:00)
[2018-04-16 04:42] LABS: BUN/Creatinine Ratio 37 (6-26); Blood Urea Nitrogen 25 mg/dL (6-20); Calcium 8.8 mg/dL (8.6-10.3); Carbon Dioxide 37 mEq/L (23-29); Chloride 95 mEq/L (98-107); Glucose 180 mg/dL (70-105); Osmolality,Calculated 293 (280-300); Potassium 4.4 mEq/L (3.5-5.1); Sodium 137 mEq/L (136-145); eGFR For Non-African Americans > 60 (> 60)
[2018-04-16 04:44] LABS: Basophils % 0.1 %; Hematocrit 30.5 % (37.5-50.1); Hemoglobin 9.5 g/dL (12.9-16.9); Immature Granulocytes % 1.9 % (0-4); Lymphocytes # 0.7 K/mcL (0.6-4.6); Lymphocytes % 9.4 %; Mean Corpuscular HGB Conc 31.1 g/dL (31.6-35.5); Mean Corpuscular Hemoglobin 26.8 pg (28.0-33.3); Mean Corpuscular Volume 86.2 fL (83.0-100.0); Mean Platelet Volume 9.6 fL (9.4-12.4); Monocytes # 0.2 K/mcL (0.0-1.3); Monocytes % 2.2 %; Platelet Count 379 K/mcL (140-400); Red Blood Count 3.54 M/mcL (4.19-5.50); Red Cell Distribution Width 15.6 % (11.5-14.5); Segmented Neutrophils % 86.4 %
[2018-04-16] MEDS: Doxycycline 100 MG in 0.9 % Sodium Chloride Mini Bag 100 ML IVPB SCH ×2 (06:05→17:52)
[2018-04-16] MEDS: Budesonide/Formoterol 80/4.5 MDI IH SCH ×2 (07:50→19:45)
[2018-04-16] MEDS: Insulin LISPRO 300 UNITS/3 ML VIAL SQ SCH ×4 (08:07→21:12)
[2018-04-16] MEDS: Furosemide 20 MG TABLET PO SCH ×3 (08:08→17:50)
[2018-04-16] MEDS: Gabapentin 300 MG CAPSULE PO SCH ×3 (08:08→21:12)
[2018-04-16] MEDS: Loratadine 10 MG TABLET PO SCH (08:08)
[2018-04-16] MEDS: (Roflumilast [Daliresp] 500 MCG) PO SCH (08:09)
[2018-04-16] MEDS ORDERED: Ipratropium/Albuterol Neb 3 ML IH ONE (09:19)
--- NOTE | 2018-04-16 09:36 | Pulmonology Progress Note ---
<RatliffLm S - Last Filed: 04/16/18 15:27> Date of Encounter: 04/16/18 Time of Encounter: 09:33 Assessment and Plan (1) Pneumonia Current Visit: No Status: Acute Pt re-presented after discharge with COPD exacerbation secondary to pneumonia - was discharged on prednisone taper and Augmentin Became SOB at home and began to "swell up" with fluid - CXR on admission showed linear densities involving the lower lung zones likely representing scarring - CT scan on admission showed a lower love opacity, superimposed upon chronic changes likely pneumonia Pt is being treated as a HCAP, as he spent >48hrs in the hospital about 1 week ago Pt doesn't meet sepsis criteria: WBC normal, HR 61, RR 15, BP stable overnight - met sepsis criteria on admission for fever, HR, RR, elevated lactic acid Sputum cx negative, legionella/strep pneumo antigens negative Plan: - keep O2 sat >88% - continue duonebs - continue steroids - blood cx pending - continue abx: doxycyline day 2 (recommended to stop after 5 days), zosyn day 1 for a total of 10-14 days d/c flagyl today (not aspirating), d/c cefepime - speech evaluation today showed no suspicsion for aspiration - continue to monitor CBC, BMP Qualifiers: Pneumonia type: aspiration pneumonia Aspiration pneumonia type: unspecified Laterality: left Lung location: lower lobe of lung Qualified Code(s): J69.0 - Pneumonitis due to inhalation of food and vomit (2) Acute and chronic respiratory failure Current Visit: No Status: Acute Resolving - see plan as above for pneumonia Qualifiers: Respiratory failure complication: hypoxia and hypercapnia Qualified Code(s): J96.21 - Acute and chronic respiratory failure with hypoxia; J96.22 - Acute and chronic respiratory failure with hypercapnia (3) Diastolic CHF Current Visit: Yes Status: Acute Pt reported increasing edema - acute on chronic exacerbation of CHF - resolving ECHO 02/16 - LVEF 50-55%. - Mild left ventricular diastolic dysfunction - Mildly dilated left atrium - Mild mitral regurgitation - No pulmonary hypertension Plan: - daily weights - strict I&O - fluid restriction - continue diuresis as per primary Qualifiers: Heart failure chronicity: acute on chronic Qualified Code(s): I50.33 - Acute on chronic diastolic (congestive) heart failure (4) Obstructive sleep apnea of adult Current Visit: No Status: Chronic Chronic - non-compliant with nighttime BiPAP (5) History of pulmonary embolism Current Visit: Yes Status: Acute On xarelto - continue (6) Acute exacerbation of chronic obstructive airways disease Current Visit: No Status: Acute Secondary to pneumonia - see plan as above (7) Sepsis Current Visit: Yes Status: Resolved Met sepsis criteria on admission - has since resolved Qualifiers: Sepsis type: sepsis due to unspecified organism Qualified Code(s): A41.9 - Sepsis, unspecified organism Subjective Principal diagnosis: COPD exacerbation secondary to pneumonia Interval history: Mr Blanchard is a 58yo male with PMH COPD on home oxygen (4L), diastolic CHF, HTN, HLD, and hx of PE on xarelto. He was recently admitted to for a COPD exacerbation and discharged on 04/11. He came back the same day with increasing SOB from baseline. He is chronically on 4L of home oxygen. He is unable to complete ADL's without getting SOB. BiPAP did not relieve symptoms. He felt like he was getting swollen with fluids. Pt represented to the ER and met sepsis criteria for HR, RR, white count and temperature. He was started on vancomycin and zosyn. He was admitted for tx of HAP. The pt has a hx of recurrent COPD exacerbation. He is known to be noncompliant. He has no exposure to pets or birds. 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 The pt is seen at bedside this morning. He reports he feels rough. He is SOB. He denies productive cough, sputum production. He denies active chest pain. He denies N/V/D or abd pain. Objective PUL Vital signs: Last Vital Signs Temp 96.0 F L 04/16/18 06:52 Pulse 61 04/16/18 06:52 Resp 14 04/16/18 07:50 BP 119/81 04/16/18 07:50 Pulse Ox 97 04/16/18 07:50 General appearance: no acute distress, appears uncomfortable Eyes: nonicteric ENT: oropharynx moist Mallampati (class): 4 Neck: supple Effort: mildly labored Auscultation: bilateral: diminished breath sounds, rhonchi Cardiovascular: regular rate and rhythm Gastrointestinal: normoactive bowel sounds Integumentary: normal Extremities: no cyanosis, edema Musculoskeletal: no deformities normal mental status, non-focal exam mood appropriate, affect normal Results - Laboratory Findings CBC and BMP: 04/16/18 03:55 04/16/18 03:55 Abnormal lab findings: Abnormal lab results RBC 3.54 M/mcL (4.19-5.50) L 04/16/18 03:55 Hgb 9.5 g/dL (12.9-16.9) L 04/16/18 03:55 Hct 30.5 % (37.5-50.1) L 04/16/18 03:55 MCH 26.8 pg (28.0-33.3) L 04/16/18 03:55 MCHC 31.1 g/dL (31.6-35.5) L 04/16/18 03:55 RDW 15.6 % (11.5-14.5) H 04/16/18 03:55 Chloride 95 mEq/L (98-107) L 04/16/18 03:55 Carbon Dioxide 37 mEq/L (23-29) H 04/16/18 03:55 BUN 25 mg/dL (6-20) H 04/16/18 03:55 Creatinine 0.67 mg/dL (0.70-1.30) L 04/16/18 03:55 BUN/Creatinine Ratio 37 (6-26) H 04/16/18 03:55 Glucose 180 mg/dL (70-105) H 04/16/18 03:55 POC Glucose 157 mg/dL (70-99) H 04/14/18 16:05 Vancomycin Trough 14 mcg/mL (5-10) H 04/13/18 03:23 - Microbiology Findings Microbiology Findings: Microbiology, Last 48 Hours 04/15/18 13:02 Sputum Culture - Preliminary Sputum - Clinical Findings Intake & Output: Intake & Output 04/15/18 04/16/18 04/16/18 23:59 07:59 15:59 Intake Total 120 / 120 120 / 120 Output Total 1410 / 1410 0 / 0 Balance -1290 / -1290 120 / 120 Weight 96.4 kg Consult Discharge Plan - Plan Referrals: Nilson Campa [Primary Care Provider] - <Richard Skinner - Last Filed: 04/16/18 15:36> Date of Encounter: 04/16/18 Objective PUL Vital signs: Last Vital Signs Temp 97.7 F 04/16/18 11:32 Pulse 77 04/16/18 11:32 Resp 14 04/16/18 11:32 BP 120/72 04/16/18 11:32 Pulse Ox 100 04/16/18 11:32 Results - Laboratory Findings CBC and BMP: 04/16/18 03:55 04/16/18 03:55 Abnormal lab findings: Abnormal lab results RBC 3.54 M/mcL (4.19-5.50) L 04/16/18 03:55 Hgb 9.5 g/dL (12.9-16.9) L 04/16/18 03:55 Hct 30.5 % (37.5-50.1) L 04/16/18 03:55 MCH 26.8 pg (28.0-33.3) L 04/16/18 03:55 MCHC 31.1 g/dL (31.6-35.5) L 04/16/18 03:55 RDW 15.6 % (11.5-14.5) H 04/16/18 03:55 Chloride 95 mEq/L (98-107) L 04/16/18 03:55 Carbon Dioxide 37 mEq/L (23-29) H 04/16/18 03:55 BUN 25 mg/dL (6-20) H 04/16/18 03:55 Creatinine 0.67 mg/dL (0.70-1.30) L 04/16/18 03:55 BUN/Creatinine Ratio 37 (6-26) H 04/16/18 03:55 Glucose 180 mg/dL (70-105) H 04/16/18 03:55 POC Glucose 157 mg/dL (70-99) H 04/14/18 16:05 Vancomycin Trough 14 mcg/mL (5-10) H 04/13/18 03:23 - Microbiology Findings Microbiology Findings: Microbiology, Last 48 Hours 04/15/18 13:02 Sputum Culture - Preliminary Sputum Gram Negative Gerard - Clinical Findings Intake & Output: Intake & Output 04/15/18 04/16/18 04/16/18 23:59 07:59 15:59 Intake Total 120 / 120 120 / 120 480 / 480 Output Total 1410 / 1410 0 / 0 Balance -1290 / -1290 120 / 120 480 / 480 Weight 96.4 kg - Attending Attestation I examined this patient and my medical decision-making was reviewed with the Resident Physician. I agree with the documented findings, disposition and treatment plan as described except to the extent set forth below. We independently had [id number] contact with the patient Patient seen and examined at bedside Labs, radiology, chart personally reviewed. Impression: Pneumonia COPD exacerbation MYNOR Recs: Would broaden antibiotics to Zosyn with planned to treat for 10 days will also give 5 day course of doxycycline please try to obtain sputum culture agree with the urine antigens and blood cultures If no improvement clinically or radiographically may need bronchoscopy down the road Continue BiPAP for work of breathing as well as for treatment of underlying sleep-disordered breathing Agree with steroids but the dose can be decreased and transition to enteral formulation in the next 24 hours (prednisone 40mg)
[2018-04-16] MEDS: *HR* HYDROcodone/Acet 5/325 mg TABLET PO PRN ×2 (13:00→17:50)
--- NOTE | 2018-04-16 17:22 | Internal Med Progress Note ---
Hospitalist Progress Note - Encounter Date of Encounter: 04/16/18 Time of Encounter: 09:00 - Subjective Interval History: Pt still has SOB and cough. Slow progression. Still in mild respiratory distress and on BiPAP overnight. Feels weak. No fever over night. - Exam Vitals: Temp Pulse Resp BP Pulse Ox 98.4 F 77 19 120/71 96 04/16/18 16:12 04/16/18 16:12 04/16/18 16:12 04/16/18 16:12 04/16/18 16:12 Exam: GEN: AAOx3; Mild respiratory distress; HEENT: Atraumatic, normocephalic; nasal congestion; mucous membranes moist; EOMI CARDIO: RRR, no murmurs, rubs, gallops RESP: Coarse breath sounds b/l; Scattered rhonchi/wheezes on RL and LL lung carmen; no crackles ABD: Soft, non-tender, non-distended, bowel sounds present NEURO: CN 2-12 intact; no focal deficits EXT: No LE edema b/l - Assessment and Plan (1) Pneumonia Current Visit: Yes Status: Acute Assessment and Plan: CT shows LLL pneumonia, pt has fever, leukocytosis, cough, and sputum. Recent hospitalization. Will treat him as HCAP. - Switch abx to doxycycline and zosyn per pulmonology recommendation - Legionella/strep Pneum test negative - Cont O2 supportive treatment. - Repeat a sputum culture shows gram-negative marielle, final sensitivity is pending. Blood culture no growth. (2) Sepsis Current Visit: Yes Status: Resolved Assessment and Plan: Resolved after treatment, most likely due to pneumonia. - WBC, temperature, lactate back to normal level. Tachycardia resolved. - Continue antibiotic for pneumonia. (3) Acute and chronic respiratory failure with hypoxia Current Visit: No Status: Acute Assessment and Plan: Caused by pneumonia and COPD exacerbation. - Continue treatment underlying disease - Continue supportive treatment with oxygen and BiPAP during night - Slow progression, pulmonology consult appreciated. (4) COPD exacerbation Current Visit: No Status: Acute Assessment and Plan: We will treat patient with antibiotic, steroid, and bronchodilator. Taper down steroid gradually. Follow further pulmonology recommendation. (5) DVT prophylaxis Current Visit: No Status: Acute Assessment and Plan: Pt is on Xarelto (6) Obesity (BMI 30.0-34.9) Current Visit: No Status: Acute Assessment and Plan: Continue lifestyle modification as outpatient (7) Obstructive sleep apnea Current Visit: No Status: Acute Assessment and Plan: Continue BiPAP during night (8) Diastolic CHF Current Visit: No Status: Chronic Assessment and Plan: Appears euvolemic at this point. Continue home medications po lasix. (9) History of pulmonary embolism Current Visit: No Status: Chronic Assessment and Plan: On xarelto, will continue DVT Prophylaxis: On Xarelto - Time Spent with Patient Total time spent is greater than 50% in coordination of care (as documented) at patient's floor/unit and/or counseling patient: 30 min 25 - 35 minutes Plan of Care Discussed with: patient Internal Medicine: Result - Labs CBC & Chem 7: 04/16/18 03:55 04/16/18 03:55 Labs: Short CBC 04/16/18 Range/Units 03:55 WBC 6.9 (4.3-11.1) K/mcL Hgb 9.5 L (12.9-16.9) g/dL Hct 30.5 L (37.5-50.1) % Plt Count 379 (140-400) K/mcL Neutrophils # 6.0 (1.6-8.9) K/mcL BMP 04/16/18 03:55 Sodium 137 Potassium 4.4 Chloride 95 L Carbon Dioxide 37 H BUN 25 H Creatinine 0.67 L Glucose 180 H Calcium 8.8 - Impressions Impressions Videofluoroscopic Swallow 04/16/18 08:46 IMPRESSION: 1. Small amount of prominence transient laryngeal penetration, without evidence of aspiration with thin liquids. 2. No evidence of laryngeal penetration or aspiration with pudding consistency barium, or barium coated cracker. 3. Please see separate speech pathology report for full discussion of findings and recommendations. D/ / John Mejias MD / John Mejias MD Interpreting Provider: John Mejias MD Consult Discharge Plan - Plan Referrals: Nilson Campa [Primary Care Provider] - (1) Pneumonia Qualifiers: Pneumonia type: due to unspecified organism Laterality: left Lung location: lower lobe of lung Qualified Code(s): J18.1 - Lobar pneumonia, unspecified organism (2) Sepsis Qualifiers: Sepsis type: sepsis due to unspecified organism Qualified Code(s): A41.9 - Sepsis, unspecified organism (8) Diastolic CHF Qualifiers: Heart failure chronicity: acute on chronic Qualified Code(s): I50.33 - Acute on chronic diastolic (congestive) heart failure
[2018-04-16] MEDS: Piperacillin/Tazobactam 3.375 GM in 0.9 % Sodium Chloride Mini Bag 100 ML IVPB SCH (17:51)
[2018-04-16] MEDS: *HR* Rivaroxaban 10 MG TABLET PO SCH (17:51)
[2018-04-17] MEDS: Ipratropium/Albuterol Neb 3 ML IH SCH ×6 (00:36→19:59)
[2018-04-17] MEDS: MethylPREDNISolone 40 MG/ML VIAL IVP SCH ×2 (01:21→12:22)
[2018-04-17] MEDS: Doxycycline 100 MG in 0.9 % Sodium Chloride Mini Bag 100 ML IVPB SCH (05:06)
[2018-04-17 05:27] LABS: Basophils % 0.1 %; Hematocrit 31.5 % (37.5-50.1); Immature Granulocytes % 0.8 % (0-4); Lymphocytes # 0.7 K/mcL (0.6-4.6); Lymphocytes % 4.2 %; Mean Corpuscular HGB Conc 31.7 g/dL (31.6-35.5); Mean Corpuscular Volume 85.1 fL (83.0-100.0); Mean Platelet Volume 9.4 fL (9.4-12.4); Monocytes # 0.4 K/mcL (0.0-1.3); Monocytes % 2.2 %; Platelet Count 401 K/mcL (140-400); Red Cell Distribution Width 15.7 % (11.5-14.5); Segmented Neutrophils % 92.7 %
[2018-04-17 05:38] LABS: BUN/Creatinine Ratio 48 (6-26); Blood Urea Nitrogen 26 mg/dL (6-20); Calcium 8.7 mg/dL (8.6-10.3); Carbon Dioxide 37 mEq/L (23-29); Chloride 92 mEq/L (98-107); Glucose 181 mg/dL (70-105); Osmolality,Calculated 289 (280-300); Potassium 4.2 mEq/L (3.5-5.1); Sodium 135 mEq/L (136-145); eGFR For Non-African Americans > 60 (> 60)
[2018-04-17 05:42] LABS: Neutrophils # 15.8 K/mcL (1.6-8.9)
[2018-04-17] MEDS: Piperacillin/Tazobactam 3.375 GM in 0.9 % Sodium Chloride Mini Bag 100 ML IVPB SCH ×2 (06:39→23:21)
[2018-04-17] MEDS: Budesonide/Formoterol 80/4.5 MDI IH SCH ×2 (07:43→19:58)
[2018-04-17] MEDS: Insulin LISPRO 300 UNITS/3 ML VIAL SQ SCH ×4 (09:13→23:00)
[2018-04-17] MEDS: Loratadine 10 MG TABLET PO SCH (09:13)
[2018-04-17] MEDS: Gabapentin 300 MG CAPSULE PO SCH ×3 (09:14→21:18)
[2018-04-17] MEDS: Furosemide 20 MG TABLET PO SCH ×3 (09:14→18:39)
[2018-04-17] MEDS: (Roflumilast [Daliresp] 500 MCG) PO SCH (09:14)
--- NOTE | 2018-04-17 09:27 | Pulmonology Progress Note ---
<RatliffLm S - Last Filed: 04/17/18 11:06> Date of Encounter: 04/17/18 Time of Encounter: 09:25 Assessment and Plan (1) Pneumonia Current Visit: No Status: Acute Pt re-presented after discharge with COPD exacerbation secondary to pneumonia - was discharged on prednisone taper and Augmentin Became SOB at home and began to "swell up" with fluid - CXR on admission showed linear densities involving the lower lung zones likely representing scarring - CT scan on admission showed a lower love opacity, superimposed upon chronic changes likely pneumonia Pt is being treated as a HCAP, as he spent >48hrs in the hospital about 1 week ago Pt doesn't meet sepsis criteria: WBC normal, HR 61, RR 15, BP stable overnight - met sepsis criteria on admission for fever, HR, RR, elevated lactic acid Sputum cx final showed Stenotrophomonas maltophilia , resistant to levofloxacin and Bactrim - legionella/strep pneumo antigens negative Plan: - keep O2 sat >88% - continue duonebs - continue steroids - blood cx pending - continue abx: zosyn day 2 for a total of 10-14 days d/c flagyl on 04/16 (not aspirating), d/c cefepime 04/16 d/c doxycycline 04/17 pulmonology recommends ID consult for multidrug resistant organism in sputum - speech evaluation showed no suspicsion for aspiration - continue to monitor CBC, BMP Qualifiers: Pneumonia type: aspiration pneumonia Aspiration pneumonia type: unspecified Laterality: left Lung location: lower lobe of lung Qualified Code(s): J69. 0 - Pneumonitis due to inhalation of food and vomit (2) Acute and chronic respiratory failure Current Visit: No Status: Acute Resolving - see plan as above for pneumonia Qualifiers: Respiratory failure complication: hypoxia and hypercapnia Qualified Code(s): J96.21 - Acute and chronic respiratory failure with hypoxia; J96.22 - Acute and chronic respiratory failure with hypercapnia (3) Diastolic CHF Current Visit: Yes Status: Acute Pt reported increasing edema - acute on chronic exacerbation of CHF - resolving ECHO 02/16 - LVEF 50-55%. - Mild left ventricular diastolic dysfunction - Mildly dilated left atrium - Mild mitral regurgitation - No pulmonary hypertension Plan: - daily weights - strict I&O - fluid restriction - continue diuresis as per primary Qualifiers: Heart failure chronicity: acute on chronic Qualified Code(s): I50.33 - Acute on chronic diastolic (congestive) heart failure (4) Obstructive sleep apnea of adult Current Visit: No Status: Chronic Chronic - non-compliant with nighttime BiPAP (5) History of pulmonary embolism Current Visit: Yes Status: Acute On xarelto - continue (6) Acute exacerbation of chronic obstructive airways disease Current Visit: No Status: Acute Secondary to pneumonia - see plan as above (7) Sepsis Current Visit: Yes Status: Resolved Met sepsis criteria on admission - has since resolved Qualifiers: Sepsis type: sepsis due to unspecified organism Qualified Code(s): A41.9 - Sepsis, unspecified organism (8) Leukocytosis Current Visit: Yes Status: Acute New white count of 17 - likely secondary to solumedrol Qualifiers: Leukocytosis type: unspecified Qualified Code(s): D72.829 - Elevated white blood cell count, unspecified Subjective Principal diagnosis: COPD exacerbation secondary to pneumonia Interval history: Mr Blanchard is a 58yo male with PMH COPD on home oxygen (4L), diastolic CHF, HTN, HLD, and hx of PE on xarelto. He was recently admitted to for a COPD exacerbation and discharged on 04/11. He came back the same day with increasing SOB from baseline. He is chronically on 4L of home oxygen. He is unable to complete ADL's without getting SOB. BiPAP did not relieve symptoms. He felt like he was getting swollen with fluids. Pt represented to the ER and met sepsis criteria for HR, RR, white count and temperature. He was started on vancomycin and zosyn. He was admitted for tx of HAP. The pt has a hx of recurrent COPD exacerbation. He is known to be noncompliant. He has no exposure to pets or birds. 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 The pt is seen at bedside this morning. He reports that he continues to feel very rough. He is SOB. He has some productive cough, little yellow sputum production. He denies active chest pain. He denies N/V/D or abd pain. Objective PUL Vital signs: Last Vital Signs Temp 98.1 F 04/17/18 07:38 Pulse 70 04/17/18 07:38 Resp 16 04/17/18 07:38 BP 131/80 04/17/18 07:38 Pulse Ox 95 04/17/18 07:38 General appearance: no acute distress Eyes: nonicteric ENT: oropharynx moist Mallampati (class): 4 Neck: supple Effort: mildly labored Auscultation: right: wheezes, bilateral: diminished breath sounds Cardiovascular: regular rate and rhythm Gastrointestinal: normoactive bowel sounds, soft, non-tender, non-distended Integumentary: normal Extremities: edema Musculoskeletal: no deformities normal mental status, non-focal exam mood appropriate, affect normal Results - Laboratory Findings CBC and BMP: 04/17/18 04:00 04/17/18 04:00 Abnormal lab findings: Abnormal lab results WBC 17.0 K/mcL (4.3-11.1) H D 04/17/18 04:00 RBC 3.70 M/mcL (4.19-5.50) L 04/17/18 04:00 Hgb 10.0 g/dL (12.9-16.9) L 04/17/18 04:00 Hct 31.5 % (37.5-50.1) L 04/17/18 04:00 MCH 27.0 pg (28.0-33.3) L 04/17/18 04:00 RDW 15.7 % (11.5-14.5) H 04/17/18 04:00 Plt Count 401 K/mcL (140-400) H 04/17/18 04:00 Neutrophils # 15.8 K/mcL (1.6-8.9) H 04/17/18 04:00 Sodium 135 mEq/L (136-145) L 04/17/18 04:00 Chloride 92 mEq/L (98-107) L 04/17/18 04:00 Carbon Dioxide 37 mEq/L (23-29) H 04/17/18 04:00 BUN 26 mg/dL (6-20) H 04/17/18 04:00 Creatinine 0.54 mg/dL (0.70-1.30) L 04/17/18 04:00 BUN/Creatinine Ratio 48 (6-26) H 04/17/18 04:00 Glucose 181 mg/dL (70-105) H 04/17/18 04:00 POC Glucose 114 mg/dL (70-99) H 04/16/18 11:36 Vancomycin Trough 14 mcg/mL (5-10) H 04/13/18 03:23 - Microbiology Findings Microbiology Findings: Microbiology, Last 48 Hours 04/15/18 13:02 Sputum Culture - Final Sputum Stenotrophomonas maltophilia 04/11/18 16:15 Blood Culture - Final Peripheral Venipuncture No growth. Final report. 04/11/18 16:26 Blood Culture - Final Peripheral Venipuncture No growth. Final report. - Clinical Findings Intake & Output: Intake & Output 04/16/18 04/17/18 04/17/18 23:59 07:59 15:59 Intake Total 220 / 220 320 / 320 Output Total 2150 / 2150 Balance -1930 / -1930 320 / 320 Weight 96.4 kg Consult Discharge Plan - Plan Referrals: Nilson Campa [Primary Care Provider] - <Richard Skinner - Last Filed: 04/17/18 12:20> Date of Encounter: 04/17/18 Objective PUL Vital signs: Last Vital Signs Temp 98.1 F 04/17/18 07:38 Pulse 82 04/17/18 12:05 Resp 16 04/17/18 12:05 BP 131/75 04/17/18 12:05 Pulse Ox 97 04/17/18 12:05 Results - Laboratory Findings CBC and BMP: 04/17/18 04:00 04/17/18 04:00 Abnormal lab findings: Abnormal lab results WBC 17.0 K/mcL (4.3-11.1) H D 04/17/18 04:00 RBC 3.70 M/mcL (4.19-5.50) L 04/17/18 04:00 Hgb 10.0 g/dL (12.9-16.9) L 04/17/18 04:00 Hct 31.5 % (37.5-50.1) L 04/17/18 04:00 MCH 27.0 pg (28.0-33.3) L 04/17/18 04:00 RDW 15.7 % (11.5-14.5) H 04/17/18 04:00 Plt Count 401 K/mcL (140-400) H 04/17/18 04:00 Neutrophils # 15.8 K/mcL (1.6-8.9) H 04/17/18 04:00 Sodium 135 mEq/L (136-145) L 04/17/18 04:00 Chloride 92 mEq/L (98-107) L 04/17/18 04:00 Carbon Dioxide 37 mEq/L (23-29) H 04/17/18 04:00 BUN 26 mg/dL (6-20) H 04/17/18 04:00 Creatinine 0.54 mg/dL (0.70-1.30) L 04/17/18 04:00 BUN/Creatinine Ratio 48 (6-26) H 04/17/18 04:00 Glucose 181 mg/dL (70-105) H 04/17/18 04:00 POC Glucose 114 mg/dL (70-99) H 04/16/18 11:36 Vancomycin Trough 14 mcg/mL (5-10) H 04/13/18 03:23 - Microbiology Findings Microbiology Findings: Microbiology, Last 48 Hours 04/15/18 13:02 Sputum Culture - Final Sputum Stenotrophomonas maltophilia 04/11/18 16:15 Blood Culture - Final Peripheral Venipuncture No growth. Final report. 04/11/18 16:26 Blood Culture - Final Peripheral Venipuncture No growth. Final report. - Clinical Findings Intake & Output: Intake & Output 04/16/18 04/17/18 04/17/18 23:59 07:59 15:59 Intake Total 220 / 220 320 / 320 220 / 220 Output Total 2150 / 2150 Balance -1930 / -1930 320 / 320 220 / 220 Weight 96.4 kg - Attending Attestation I examined this patient and my medical decision-making was reviewed with the Resident Physician. I agree with the documented findings, disposition and treatment plan as described except to the extent set forth below. We independently had [id number] contact with the patient Patient seen and examined at bedside Labs, radiology, chart personally reviewed. Impression: Stenotrophomonas pneumonia COPD with acute exacerbation Acute on chronic respiratory failure MYNOR Recs: -Would continue IV Zosyn at this time although the organism is ahuja resistant at least in the literature Zosyn and has been used successfully for treatment with drug resistance to fluoroquinolone and Bactrim. - Recommend formal Infectious Disease consultation -Continue IV steroids and bronchodilators -Continue oxygen as needed to keep saturation greater than 88% -Continue BiPAP at night and with naps
[2018-04-17] MEDS ORDERED: Ipratropium/Albuterol Neb 3 ML IH ONE (11:30)
[2018-04-17] MEDS ORDERED: Piperacillin/Tazobactam 3.375 GM in 0.9 % Sodium Chloride Mini Bag 100 ML IVPB SCH (14:00)
--- NOTE | 2018-04-17 16:16 | Internal Med Progress Note ---
Hospitalist Progress Note - Encounter Date of Encounter: 04/17/18 Time of Encounter: 16:13 - Subjective Interval History: I have seen and evaluated the patient at bedside. Patient reports that he is still having significant shortness of breath. Denies chest pain, nausea, vomiting or abdominal pain. - Exam Vitals: Temp Pulse Resp BP Pulse Ox 98.1 F 82 24 131/75 96 04/17/18 07:38 04/17/18 12:05 04/17/18 16:02 04/17/18 12:05 04/17/18 16:02 Exam: Vitals: Reviewed. General: Alert and oriented x4. In mild distress due to shortness of breath. Skin: Normal color, no rash, no lesions. HEENT: EOM, pupils equal, round and reactive. Cardiovascular: RRR, Normal S1 & S2, no rubs, murmurs or gallops. Lungs: Scattered bilateral expiratory and inspiratory wheezing. Abdomen: Soft, non-tender, no rigidity. Extremities: Trace edema in the lower extremity bilaterally. Neurological: Normal cognition and motor skills. Rest of the physical exam is non contributory - Assessment and Plan (1) Pneumonia Current Visit: Yes Status: Acute Assessment and Plan: Sputum growing multidrugs resistant organism. Stenotrophomonas maltophilia Plan: ID has been consulted patient might to be transferred to a different facility, pending on ID evaluation On Piperacillin/Tazobactam 3.375mg/IV Q8HRs (2) Acute and chronic respiratory failure with hypoxia Current Visit: No Status: Acute Assessment and Plan: Multifactorial. Secondary to pneumonia versus COPD exacerbation. Continue oxygen by nasal cannula, titrate for O2 sat saturation more than 88%. Pulm has been consulted. Recommended to continue IV steroids. On Solu-Medrol 40mg/IV BID Continue Symbicort Incentive spirometry. (3) COPD exacerbation Current Visit: No Status: Acute Assessment and Plan: Plan of care as above. (4) History of pulmonary embolism Current Visit: No Status: Chronic Assessment and Plan: Continue oral anticoagulation with Ribaroxaban 20mg/PO daily. (5) Diastolic CHF Current Visit: No Status: Chronic Assessment and Plan: HFpEF. Not on CHF exacerbation. No crackles on auscultation. Trace edema in the lower extremity. Plan: To continue gentle IV diruresis with furosemide 40 mg by mouth 3 times a day strict intake and output water restriction to 1.5 litters a day. daily weight 2 gram sodium diet (6) Obstructive sleep apnea Current Visit: No Status: Chronic Assessment and Plan: Nocturnal BiPAP (7) Obesity (BMI 30.0-34.9) Current Visit: No Status: Acute (8) Sepsis Current Visit: Yes Status: Resolved DVT Prophylaxis: On Ribaroxaban 20mg/PO daily due to Hx of PE. - Summary of Assessment and Plan Summary of Assessment and Plan: Patient to remain in the hospital due to hypoxemic respiratory failure. Pneumonia, and COPD exacerbation on IV steroids and antibiotics. - Time Spent with Patient Total time spent is greater than 50% in coordination of care (as documented) at patient's floor/unit and/or counseling patient: Greater than 35 minutes (45) Plan of Care Discussed with: patient (and the nurse.) Internal Medicine: Result - Labs CBC & Chem 7: 04/17/18 04:00 04/17/18 04:00 Labs: Short CBC 04/17/18 Range/Units 04:00 WBC 17.0 H D (4.3-11.1) K/mcL Hgb 10.0 L (12.9-16.9) g/dL Hct 31.5 L (37.5-50.1) % Plt Count 401 H (140-400) K/mcL Neutrophils # 15.8 H (1.6-8.9) K/mcL BMP 04/17/18 04:00 Sodium 135 L Potassium 4.2 Chloride 92 L Carbon Dioxide 37 H BUN 26 H Creatinine 0.54 L Glucose 181 H Calcium 8.7 Consult Discharge Plan - Plan Referrals: Nilson Campa [Primary Care Provider] - (1) Pneumonia Qualifiers: Pneumonia type: due to unspecified organism Laterality: left Lung location: lower lobe of lung Qualified Code(s): J18.1 - Lobar pneumonia, unspecified organism (5) Diastolic CHF Qualifiers: Heart failure chronicity: acute on chronic Qualified Code(s): I50.33 - Acute on chronic diastolic (congestive) heart failure (8) Sepsis Qualifiers: Sepsis type: sepsis due to unspecified organism Qualified Code(s): A41.9 - Sepsis, unspecified organism
--- NOTE | 2018-04-17 17:51 | Infectious Disease Consult ---
Date of Encounter: 04/17/18 Time of Encounter: 17:46 Assessment and Plan (1) Acute and chronic respiratory failure Status: Acute Qualifiers: Respiratory failure complication: hypoxia and hypercapnia Qualified Code(s): J96.21 - Acute and chronic respiratory failure with hypoxia; J96.22 - Acute and chronic respiratory failure with hypercapnia (2) Smoking addiction Status: Acute (3) Pneumonia Status: Acute Assessment and plan: Causative organism not clear. Sputum culture from 04/15/2018 grew Stenotrophomonas maltophilia resistant to levofloxacin and Bactrim Patient has been on Vanco and Zosyn and clinically is doing better with improved WBC, if you fever and improved tachypnea and tachycardia. Not sure of the stenotrophomonas is a true pathogen or a colonizer. I did call microbiology and ask him to send for extended susceptibility pattern. Based on previous cultures and susceptibilities from literature I will start patient on minocycline and continue Zosyn for now. Check MRSA swab if negative continue to hold vancomycin if positive we will restart vancomycin especially in the fact that WBC has increased I believe the leukocytosis is probably due to the steroids but we will repeat imaging and discuss with pulmonary team Monitor labs and for drug toxicity Duration of treatment depends on the clinical picture Qualifiers: Pneumonia type: aspiration pneumonia Aspiration pneumonia type: unspecified Laterality: left Lung location: lower lobe of lung Qualified Code(s): J69.0 - Pneumonitis due to inhalation of food and vomit (4) Sepsis Status: Resolved Qualifiers: Sepsis type: sepsis due to unspecified organism Qualified Code(s): A41.9 - Sepsis, unspecified organism (5) COPD exacerbation Status: Resolved Infectious Disease HPI - Data of Consult Patient: new to practice Consult date: 04/17/18 Requesting Physician: Avila Parham MD Primary Care Provider: Nilson Campa - Consult Narrative Reason for consult: MDR bacteria History of present illness: Mr. Blanchard is a 58 year old male Patient is a 58-year-old gentleman who presented to [facility] on 04/11/[facility] with dyspnea, we are consulted 04/17/2018 with multidrug resistant stenotrophomonas maltophilia. Patient is a 58-year-old gentleman with past medical history mentioned below including chronic respiratory failure secondary to advanced COPD, dependent on O2 nasal cannula was transferred from the extended care facility for acute sudden onset shortness of breath. Most of the information was taken from medical records since patient is not the best historian. In the ED patient was found to be labored breathing, having dyspnea. Patient also was found to be febrile with elevated heart rate respiratory rate and white count and lactic acid of 2.3. Patient met severe sepsis criteria. Was started on empiric antibiotics including vancomycin and Zosyn steroids and admitted to the floor unit for further evaluation Since admission, patient has been afebrile, heart rate improved and no further tachypnea. Hemodynamically stable. O2 sats 9697% on 4 L. Presenting labs revealed WBC that trended down from 12-6.9 yesterday but today jumped to 17,000 with 93% neutrophils. Sputum culture from April 12 was contaminated, urine legionella and pneumococcal antigen were negative. Repeat sputum culture from April 15 grew Stenotrophomonas maltophilia that was resistant to both l evofloxacin and Bactrim. Patient had a CT chest done on the which reveals increased left lower lobe opacity superimposed upon chronic changes lector presenting pneumonia. Patient also had a swallow eval which reveals small amount of prominence transient laryngeal penetration without evidence of aspiration with thin liquid. No evidence of laryngeal penetration or aspiration with pudding consistency barium or barium coated cracker. CC: Avila Parham MD Past Med Surg Social Fam HX - Past Medical History Medical history: CHF, COPD, hyperlipidemia, hypertension, pulmonary embolus Additional medical history: umbilical hernia Psychiatric history: anxiety, depression - Past Surgical History Surgical History: no surgical history - Social History Smoking Status: Former smoker Smokeless Tobacco Status: No Alcohol use: none Drug use: none - Family History Father Living Status: Hx Family Cancer: Yes (colon) Mother Living Status: Hx Family Cancer: Yes Infectious Disease-CN:Meds Oxygen 4 l NS CONT 07/25/17 [History] Roflumilast [Daliresp] 500 mcg PO DAILY 07/25/17 [History] Furosemide [Lasix] 40 mg PO TID #90 tab 09/20/17 [Rx] Omeprazole [PriLOSEC] 20 mg PO 0730 09/30/17 [History] Loratadine [Claritin] 10 mg PO DAILY #30 tablet 11/09/17 [Rx] Gabapentin [Neurontin] 300 mg PO TID 12/31/17 [History] Albuterol Sulfate [Albuterol Inhaler] 2 puff IH Q4H PRN #1 inhaler 01/17/18 [Rx] Rivaroxaban [Xarelto] 20 mg PO DAILY@1700 03/06/18 [History] GuaiFENesin ER [Mucinex] 600 mg PO BID #30 tbbp.12hr 03/22/18 [Rx] Amoxicillin/Clavulanate [Augmentin] 500 mg PO BIDWM #10 tablet 04/11/18 [Rx] Fluticasone/Salmeterol [Advair Hfa 115-21 Mcg Inhaler] 2 puff IH BID 04/11/18 [History] Ipratropium/Albuterol Sulfate [Iprat-Albut 0.5-3(2.5) mg/3 ml] 1 vial IH Q4H PRN 04/11/18 [History] Potassium Chloride 20 meq PO DAILY #30 tab.er.prt 04/11/18 [Rx] Allergy/AdvReac Type Severity Reaction Status Date / Time levofloxacin AdvReac Blurry Verified 03/20/18 13:24 Vision Review of systems: 10 point review of systems done, negative other for what is mentioned in history of present illness Exam - Constitutional Vitals: Temp Pulse Resp BP Pulse Ox 98.1 F 70 16 134/80 96 04/17/18 07:38 04/17/18 16:22 04/17/18 16:22 04/17/18 16:22 04/17/18 16:22 Infectious Disease CN: Results - Labs CBC & Chem 7: 04/17/18 04:00 04/17/18 04:00 Cultures: Cultures 04/15/18 13:02 Sputum Culture - Final Sputum Stenotrophomonas maltophilia 04/11/18 16:15 Blood Culture - Final Peripheral Venipuncture No growth. Final report. 04/11/18 16:26 Blood Culture - Final Peripheral Venipuncture No growth. Final report. 04/12/18 16:25 Sputum Culture - Final Sputum 04/12/18 06:10 Legionella Antigen - Final Urine,[place] Streptococcus pneumoniae Antigen (M - Final Serology: Serology 04/12/18 04/11/18 Range/Units 09:09 17:57 Urine Color Yellow (Yellow) Urine Clarity Clear (Clear) Urine pH 7.0 (5.0-8.0) pH Units Ur Specific [place] 1.022 (1.010-1.025) Urine Protein Negative (Neg-Trace) mg/dL Urine Glucose (UA) Normal (Normal) mg/dL Urine Ketones Negative (Negative) mg/dL Urine Blood Negative (Negative) Urine Nitrite Negative (Negative) Urine Bilirubin Negative (Negative) Urine Urobilinogen Normal (Normal) mg/dL Ur Leukocyte Esterase Negative (Negative) Ur Culture Indicated? NO (NO) Nasal Screen MRSA (PCR) Negative (Negative) Consult Discharge Plan - Plan Referrals: Nilson Campa [Primary Care Provider] -
[2018-04-17] MEDS: *HR* Rivaroxaban 10 MG TABLET PO SCH (18:39)
[2018-04-18] MEDS: Ipratropium/Albuterol Neb 3 ML IH SCH ×7 (00:03→23:25)
[2018-04-18] MEDS: MethylPREDNISolone 40 MG/ML VIAL IVP SCH ×2 (00:24→12:14)
[2018-04-18 03:57] LABS: Basophils % 0.1 %; Hematocrit 33.9 % (37.5-50.1); Hemoglobin 10.4 g/dL (12.9-16.9); Immature Granulocytes % 1.1 % (0-4); Lymphocytes # 0.6 K/mcL (0.6-4.6); Lymphocytes % 6.9 %; Mean Corpuscular HGB Conc 30.7 g/dL (31.6-35.5); Mean Corpuscular Hemoglobin 26.7 pg (28.0-33.3); Mean Corpuscular Volume 86.9 fL (83.0-100.0); Mean Platelet Volume 9.5 fL (9.4-12.4); Monocytes # 0.1 K/mcL (0.0-1.3); Monocytes % 1.5 %; Neutrophils # 8.3 K/mcL (1.6-8.9); Platelet Count 406 K/mcL (140-400); Red Cell Distribution Width 15.7 % (11.5-14.5); Segmented Neutrophils % 90.4 %
[2018-04-18 04:40] LABS: BUN/Creatinine Ratio 48 (6-26); Blood Urea Nitrogen 26 mg/dL (6-20); Calcium 8.9 mg/dL (8.6-10.3); Carbon Dioxide 39 mEq/L (23-29); Chloride 92 mEq/L (98-107); Glucose 206 mg/dL (70-105); Magnesium 2.3 mg/dL (1.6-2.6); Osmolality,Calculated 295 (280-300); Phosphorous 3.8 mg/dL (2.7-4.5); Potassium 4.5 mEq/L (3.5-5.1); Sodium 137 mEq/L (136-145); eGFR For Non-African Americans > 60 (> 60)
[2018-04-18] MEDS: Piperacillin/Tazobactam 3.375 GM in 0.9 % Sodium Chloride Mini Bag 100 ML IVPB SCH ×3 (06:14→23:31)
[2018-04-18] MEDS: Budesonide/Formoterol 80/4.5 MDI IH SCH ×2 (07:46→20:34)
[2018-04-18] MEDS: Furosemide 20 MG TABLET PO SCH ×3 (08:31→16:18)
[2018-04-18] MEDS: Gabapentin 300 MG CAPSULE PO SCH ×3 (08:31→22:04)
[2018-04-18] MEDS: Loratadine 10 MG TABLET PO SCH (08:32)
[2018-04-18] MEDS: (Roflumilast [Daliresp] 500 MCG) PO SCH (08:33)
[2018-04-18] MEDS: Insulin LISPRO 300 UNITS/3 ML VIAL SQ SCH ×5 (08:33→22:02)
--- NOTE | 2018-04-18 12:31 | Internal Med Progress Note ---
Hospitalist Progress Note - Encounter Date of Encounter: 04/18/18 Time of Encounter: 12:27 - Subjective Interval History: I have seen and evaluated the patient at bedside. Reports that he keeps having intermittent episodes of shortness of breath. denies chest pain, nausea or vomiting. chest less congested on auscultation when compared with yesterday. - Exam Vitals: Temp Pulse Resp BP Pulse Ox 97.1 F L 90 12 117/67 98 04/18/18 11:05 04/18/18 11:05 04/18/18 11:05 04/18/18 11:05 04/18/18 11:05 Exam: Vitals: Reviewed. General: Alert and oriented x4. In mild distress due to shortness of breath and productive cough Skin:Normal color, no rash, no lesions. Cardiovascular: RRR, Normal S1 & S2, no rubs, murmurs or gallops. Lungs: Rales the bases b/l more significant at the left lower lobe, mild scattered wheezes b/l, no crackles. Abdomen: Obese, umbilical hernia, Soft, non-tender, no rigidity. Extremities: No deformity, no edema or tenderness, no joint swelling or clubbing. Neurological:Normal cognition and motor skills. Rest of the physical exam is non contributory - Assessment and Plan (1) Pneumonia Current Visit: Yes Status: Acute Assessment and Plan: rales on auscultating b/l. L>R. Sputum growing multidrug resistant organism. ID recommended to continue Piperacillin/Tazobactam 3.375mg/IV Q8HRs started on Minocycline 100mg/PO BID recommendations appreciated. (2) Acute and chronic respiratory failure with hypoxia Current Visit: No Status: Acute Assessment and Plan: slight improvement in respiratory status. less wheezing on auscultation. still on 4 litters of O2 by nasal cannula continue Nebs with Duo-Nebs Q4RT Scheduled on symbicort solu-medrol 40mg/IV BID Pulm involved in patient care will follow recommendations. (3) COPD exacerbation Current Visit: No Status: Acute Assessment and Plan: plan of care as above. (4) History of pulmonary embolism Current Visit: No Status: Chronic Assessment and Plan: On ribaroxaban 20mg/PO daily (5) Diastolic CHF Current Visit: No Status: Chronic Assessment and Plan: Patient is euvolemic. total negative balance of 3.3 litters continue fluids restrictive strategies, to 1.5 litters a day Daily weight On furosemide 40 mg by mouth 3 times a day. (6) Obstructive sleep apnea Current Visit: No Status: Chronic Assessment and Plan: On nocturnal BiPAP. (7) Obesity (BMI 30.0-34.9) Current Visit: No Status: Acute (8) Sepsis Current Visit: Yes Status: Resolved DVT Prophylaxis: Patient on an oral anticoagulant due to history of PE - Summary of Assessment and Plan Summary of Assessment and Plan: Patient to remain in the hospital due to acute on chronic hypoxemic respiratory failure, COPD exacerbation. Multidrug resistant pneumonia. - Time Spent with Patient Total time spent is greater than 50% in coordination of care (as documented) at patient's floor/unit and/or counseling patient: Greater than 35 minutes (45) Plan of Care Discussed with: patient (And the nurse.) Internal Medicine: Result - Labs CBC & Chem 7: 04/18/18 03:40 04/18/18 03:40 Labs: Short CBC 04/18/18 Range/Units 03:40 WBC 9.1 (4.3-11.1) K/mcL Hgb 10.4 L (12.9-16.9) g/dL Hct 33.9 L (37.5-50.1) % Plt Count 406 H (140-400) K/mcL Neutrophils # 8.3 (1.6-8.9) K/mcL BMP 04/18/18 03:40 Sodium 137 Potassium 4.5 Chloride 92 L Carbon Dioxide 39 H BUN 26 H Creatinine 0.54 L Glucose 206 H Calcium 8.9 Consult Discharge Plan - Plan Referrals: Nilson Campa [Primary Care Provider] - (1) Pneumonia Qualifiers: Pneumonia type: due to unspecified organism Laterality: left Lung location: lower lobe of lung Qualified Code(s): J18.1 - Lobar pneumonia, unspecified organism (5) Diastolic CHF Qualifiers: Heart failure chronicity: acute on chronic Qualified Code(s): I50.33 - Acute on chronic diastolic (congestive) heart failure (8) Sepsis Qualifiers: Sepsis type: sepsis due to unspecified organism Qualified Code(s): A41.9 - Sepsis, unspecified organism
--- NOTE | 2018-04-18 15:42 | Pulmonology Progress Note ---
Date of Encounter: 04/18/18 Time of Encounter: 15:42 Assessment and Plan (1) Pneumonia Current Visit: No Status: Acute Causative organism appears to be stenotrophomonas and I believe that this is a true pathogen although at times it can be a colonizer. Given his underlying structural lung disease and COPD and the clinical chronicity of repeat COPD exa cerbations I favor treating I discussed directly with the infectious disease attending Dr Decker we are in agreement to proceed with treatment at this time he is on the PIP wrist salad and minocycline has been added pending further testing of her antimicrobial sensitivity. Treatment duration will depend on clinical course likely 10-[address] scan in 4-6 weeks after treatment unless clinically patient continues to worsen or does not fully resolve in which case this can be done sooner and would likely need bronchoscopy at that time Unfortunately infection with stenotrophomonas is associated with generally poor prognosis and recurrent exacerbation/persistent infection and can be difficult to treat. Qualifiers: Pneumonia type: aspiration pneumonia Aspiration pneumonia type: unspecified Laterality: left Lung location: lower lobe of lung Qualified Code(s): J69.0 - Pneumonitis due to inhalation of food and vomit (2) Acute exacerbation of chronic obstructive airways disease Current Visit: No Status: Acute He will need a prolonged glucocorticoid taper starting at 50 mg prednisone daily to be tapered by 10 mg weekly until clinic follow-up Continue schedule bronchodilators and Symbicort (3) Acute and chronic respiratory failure Current Visit: No Status: Acute Weaning back to home oxygen requirement of 3-4 L at all time to keep oxygen saturation greater than 88% around 92% Qualifiers: Respiratory failure complication: hypoxia and hypercapnia Qualified Code(s): J96.21 - Acute and chronic respiratory failure with hypoxia; J96.22 - Acute and chronic respiratory failure with hypercapnia (4) MYNOR (obstructive sleep apnea) Current Visit: Yes Status: Acute Continue positive airway pressure support at night and with he is very diligent about wearing this in the hospital and encouraged him to continue to do so when he is discharged Pulmonary will sign off at this time please call with any questions thank you for this consultation we look forward to following up with the patient in 2-4 weeks after the time of discharge Subjective Principal diagnosis: COPD exacerbation secondary to pneumonia Interval history: No change in breathing over the last 24 hours he states it is still quite rough although his been tolerating oxygen mask for several hours Objective PUL Vital signs: Last Vital Signs Temp 97.8 F 04/18/18 15:12 Pulse 91 04/18/18 15:12 Resp 12 04/18/18 15:12 BP 115/80 04/18/18 15:12 Pulse Ox 92 04/18/18 15:12 General appearance: no acute distress Eyes: nonicteric ENT: oropharynx moist Neck: supple, no lymphadenopathy Effort: mildly labored Auscultation: bilateral: diminished breath sounds, wheezes (expiratory throughout) Cardiovascular: regular rate and rhythm Gastrointestinal: normoactive bowel sounds, soft, non-tender, other (Umbilical hernia noted) Extremities: no cyanosis, no edema, edema (trace b/l LE edema ) Musculoskeletal: no deformities normal mental status, non-focal exam mood appropriate Results - Laboratory Findings CBC and BMP: 04/18/18 03:40 04/18/18 03:40 Abnormal lab findings: Abnormal lab results RBC 3.90 M/mcL (4.19-5.50) L 04/18/18 03:40 Hgb 10.4 g/dL (12.9-16.9) L 04/18/18 03:40 Hct 33.9 % (37.5-50.1) L 04/18/18 03:40 MCH 26.7 pg (28.0-33.3) L 04/18/18 03:40 MCHC 30.7 g/dL (31.6-35.5) L 04/18/18 03:40 RDW 15.7 % (11.5-14.5) H 04/18/18 03:40 Plt Count 406 K/mcL (140-400) H 04/18/18 03:40 Chloride 92 mEq/L (98-107) L 04/18/18 03:40 Carbon Dioxide 39 mEq/L (23-29) H 04/18/18 03:40 BUN 26 mg/dL (6-20) H 04/18/18 03:40 Creatinine 0.54 mg/dL (0.70-1.30) L 04/18/18 03:40 BUN/Creatinine Ratio 48 (6-26) H 04/18/18 03:40 Glucose 206 mg/dL (70-105) H 04/18/18 03:40 POC Glucose 137 mg/dL (70-99) H 04/18/18 15:18 Vancomycin Trough 14 mcg/mL (5-10) H 04/13/18 03:23 - Microbiology Findings Microbiology Findings: Microbiology, Last 48 Hours 04/15/18 13:02 Sputum Culture - Preliminary Sputum Stenotrophomonas maltophilia 04/11/18 16:15 Blood Culture - Final Peripheral Venipuncture No growth. Final report. 04/11/18 16:26 Blood Culture - Final Peripheral Venipuncture No growth. Final report. - Clinical Findings Intake & Output: Intake & Output 04/17/18 04/18/18 04/18/18 23:59 07:59 15:59 Intake Total 220 / 220 220 / 220 120 / 120 Output Total 900 / 900 600 / 600 450 / 450 Balance -680 / -680 -380 / -380 -330 / -330 Weight 96.2 kg Consult Discharge Plan - Plan Referrals: Nilson Campa [Primary Care Provider] -
--- NOTE | 2018-04-18 16:01 | Infectious Disease Progress No ---
Date of Encounter: 04/18/18 Time of Encounter: 15:59 - Assessment and Plan (1) Acute and chronic respiratory failure Current Visit: No Status: Acute Qualifiers: Respiratory failure complication: hypoxia and hypercapnia Qualified Code(s): J96.21 - Acute and chronic respiratory failure with hypoxia; J96.22 - Acute and chronic respiratory failure with hypercapnia (2) Smoking addiction Current Visit: No Status: Acute (3) Pneumonia Current Visit: No Status: Acute Sputum culture from 04/15/2018 grew Stenotrophomonas maltophilia resistant to levofloxacin and Bactrim Patient has been on Vanco and Zosyn and clinically is doing better with improved WBC, if you fever and improved tachypnea and tachycardia. Not sure of the stenotrophomonas is a true pathogen or a colonizer. I did speak with the pulmonary team and they truly believe that it is a true pathogen. We do have the patient on Zosyn and minocycline. Clinically we will hold he does well while the cultures finalize and susceptibilities are back on the Stenotrophomonas maltophilia that is a send out. Recommend repeating chest x-ray Recommend MRSA screen Continue Zosyn and minocycline for now Prognosis guarded Monitor labs and for drug toxicity Qualifiers: Pneumonia type: aspiration pneumonia Aspiration pneumonia type: unspecified Laterality: left Lung location: lower lobe of lung Qualified Code(s): J69.0 - Pneumonitis due to inhalation of food and vomit (4) Sepsis Current Visit: Yes Status: Resolved Qualifiers: Sepsis type: sepsis due to unspecified organism Qualified Code(s): A41.9 - Sepsis, unspecified organism (5) COPD exacerbation Current Visit: No Status: Resolved - Subjective Interval history: Patient seen and examined. Tells me he feels rough. Continues to have breathing trouble. He is on O2 nasal cannula 5 L. Continues to have cough. No diarrhea. No chest pain. No urinary symptoms. No URI symptoms. Labs reviewed Vitals noted Infect Dis PN-Objective Data - Labs CBC & Chem 7: 04/18/18 03:40 04/18/18 03:40 Labs: Laboratory Results - last 24 hr 04/17/18 04/17/18 04/18/18 16:26 21:31 03:40 WBC 9.1 RBC 3.90 L Hgb 10.4 L Hct 33.9 L MCV 86.9 MCH 26.7 L MCHC 30.7 L RDW 15.7 H Plt Count 406 H MPV 9.5 Immature Gran % 1.1 Seg Neutrophils % 90.4 Lymphocytes % 6.9 Monocytes % 1.5 Eosinophils % 0.0 Basophils % 0.1 Neutrophils # 8.3 Lymphocytes # 0.6 Monocytes # 0.1 Eosinophils # 0.0 Basophils # 0.0 Sodium Potassium Chloride Carbon Dioxide BUN Creatinine Est GFR ( Amer) Est GFR (Non-Af Amer) BUN/Creatinine Ratio Glucose POC Glucose 175 H 158 H Calculated Osmolality Calcium Phosphorus Magnesium 04/18/18 04/18/18 04/18/18 03:40 07:55 11:09 WBC RBC Hgb Hct MCV MCH MCHC RDW Plt Count MPV Immature Gran % Seg Neutrophils % Lymphocytes % Monocytes % Eosinophils % Basophils % Neutrophils # Lymphocytes # Monocytes # Eosinophils # Basophils # Sodium 137 Potassium 4.5 Chloride 92 L Carbon Dioxide 39 H BUN 26 H Creatinine 0.54 L Est GFR ( Amer) > 60 Est GFR (Non-Af Amer) > 60 BUN/Creatinine Ratio 48 H Glucose 206 H POC Glucose 242 H 177 H Calculated Osmolality 295 Calcium 8.9 Phosphorus 3.8 Magnesium 2.3 04/18/18 15:18 WBC RBC Hgb Hct MCV MCH MCHC RDW Plt Count MPV Immature Gran % Seg Neutrophils % Lymphocytes % Monocytes % Eosinophils % Basophils % Neutrophils # Lymphocytes # Monocytes # Eosinophils # Basophils # Sodium Potassium Chloride Carbon Dioxide BUN Creatinine Est GFR ( Amer) Est GFR (Non-Af Amer) BUN/Creatinine Ratio Glucose POC Glucose 137 H Calculated Osmolality Calcium Phosphorus Magnesium Cultures: Cultures 04/15/18 13:02 Sputum Culture - Preliminary Sputum Stenotrophomonas maltophilia 04/11/18 16:15 Blood Culture - Final Peripheral Venipuncture No growth. Final report. 04/11/18 16:26 Blood Culture - Final Peripheral Venipuncture No growth. Final report. 04/12/18 16:25 Sputum Culture - Final Sputum 04/12/18 06:10 Legionella Antigen - Final Urine,[place] Streptococcus pneumoniae Antigen (M - Final Serology 04/12/18 04/11/18 Range/Units 09:09 17:57 Urine Color Yellow (Yellow) Urine Clarity Clear (Clear) Urine pH 7.0 (5.0-8.0) pH Units Ur Specific [place] 1.022 (1.010-1.025) Urine Protein Negative (Neg-Trace) mg/dL Urine Glucose (UA) Normal (Normal) mg/dL Urine Ketones Negative (Negative) mg/dL Urine Blood Negative (Negative) Urine Nitrite Negative (Negative) Urine Bilirubin Negative (Negative) Urine Urobilinogen Normal (Normal) mg/dL Ur Leukocyte Esterase Negative (Negative) Ur Culture Indicated? NO (NO) Nasal Screen MRSA (PCR) Negative (Negative) Exam - Constitutional Vitals: Temp Pulse Resp BP Pulse Ox 97.8 F 91 12 115/80 92 04/18/18 15:12 04/18/18 15:12 04/18/18 15:12 04/18/18 15:12 04/18/18 15:12 General appearance: cooperative, mild distress, no febrile - Respiratory Additional comments: Some wheezing with decreased breath sounds universally. Chest expanding symmetrically. - Cardiovascular Cardiovascular exam: Present: RRR, +S1, +S2 - GI/Abdominal GI/Abdominal exam: Present: distended, normal bowel sounds, soft. Absent: tende rness - Extremities Exam Extremities exam: Present: full ROM, normal inspection - Neurological Exam Neurological exam: Present: alert, oriented X3 Consult Discharge Plan - Plan Referrals: Nilson Campa [Primary Care Provider] -
[2018-04-18] MEDS: *HR* Rivaroxaban 10 MG TABLET PO SCH (16:18)
[2018-04-18] MEDS: *HR* HYDROcodone/Acet 5/325 mg TABLET PO PRN (16:33)
[2018-04-19] MEDS: MethylPREDNISolone 40 MG/ML VIAL IVP SCH ×3 (00:20→23:02)
[2018-04-19] MEDS: Ipratropium/Albuterol Neb 3 ML IH SCH ×6 (04:26→23:52)
[2018-04-19] MEDS: *HR* HYDROcodone/Acet 5/325 mg TABLET PO PRN ×2 (05:02→21:27)
[2018-04-19 05:38] LABS: Basophils % 0.1 %; Hematocrit 33.2 % (37.5-50.1); Hemoglobin 10.2 g/dL (12.9-16.9); Immature Granulocytes % 1.1 % (0-4); Lymphocytes # 0.7 K/mcL (0.6-4.6); Lymphocytes % 9.4 %; Mean Corpuscular HGB Conc 30.7 g/dL (31.6-35.5); Mean Corpuscular Hemoglobin 26.7 pg (28.0-33.3); Mean Corpuscular Volume 86.9 fL (83.0-100.0); Mean Platelet Volume 9.5 fL (9.4-12.4); Monocytes # 0.1 K/mcL (0.0-1.3); Neutrophils # 6.2 K/mcL (1.6-8.9); Platelet Count 362 K/mcL (140-400); Red Blood Count 3.82 M/mcL (4.19-5.50); Red Cell Distribution Width 15.8 % (11.5-14.5); Segmented Neutrophils % 87.4 %
[2018-04-19 05:58] LABS: BUN/Creatinine Ratio 51 (6-26); Blood Urea Nitrogen 31 mg/dL (6-20); Calcium 9.1 mg/dL (8.6-10.3); Carbon Dioxide 36 mEq/L (23-29); Chloride 92 mEq/L (98-107); Glucose 212 mg/dL (70-105); Magnesium 2.3 mg/dL (1.6-2.6); Osmolality,Calculated 295 (280-300); Phosphorous 4.4 mg/dL (2.7-4.5); Potassium 4.3 mEq/L (3.5-5.1); Sodium 136 mEq/L (136-145); eGFR For Non-African Americans > 60 (> 60)
[2018-04-19] MEDS: Piperacillin/Tazobactam 3.375 GM in 0.9 % Sodium Chloride Mini Bag 100 ML IVPB SCH ×3 (06:44→23:03)
[2018-04-19] MEDS: Insulin LISPRO 300 UNITS/3 ML VIAL SQ SCH ×4 (08:54→22:11)
[2018-04-19] MEDS: Loratadine 10 MG TABLET PO SCH (08:54)
[2018-04-19] MEDS: Furosemide 20 MG TABLET PO SCH ×3 (08:54→16:20)
[2018-04-19] MEDS: Gabapentin 300 MG CAPSULE PO SCH ×3 (08:57→20:03)
--- NOTE | 2018-04-19 10:08 | Infectious Disease Progress No ---
Date of Encounter: 04/19/18 Time of Encounter: 10:05 - Assessment and Plan (1) Sepsis Current Visit: Yes Status: Resolved The patient had four SIRS criteria on admission. Likely secondary to pneumonia. Improved. WBC normalized. Afebrile. Tachycardia and tachypnea resolved. Blood cultures drawn 04/11/18 are negative x 2 sets. Recommendations: - Await susceptibilities on Stenotrophomonas. - Repeat CXR. - Continue Zosyn 3.375 grams IV Q8H. - Continue minocycline 100mg PO Q12H. - Duration of treatment depends on the clinical picture. - Monitor renal function and dose-adjust antibiotics. Qualifiers: Sepsis type: sepsis due to unspecified organism Qualified Code(s): A41.9 - Sepsis, unspecified organism (2) Pneumonia Current Visit: No Status: Acute Causative organism: Stenotrophomonas maltophilia, resistant to levaquin and bactrim. Causative organism vs. colonizer. Discussed with pulmonology who believes this is not a colonizer, although the patient improved on Vanc and Zosyn. Send-out susceptibilities are pending. MRSA screen negative. Currently on Zosyn and minocycline. Qualifiers: Pneumonia type: aspiration pneumonia Aspiration pneumonia type: unspecified Laterality: left Lung location: lower lobe of lung Qualified Code(s): J69.0 - Pneumonitis due to inhalation of food and vomit (3) Acute and chronic respiratory failure Current Visit: No Status: Acute Likely secondary to PNA and COPD exacerbation. Management per the primary and pulmonology teams. Qualifiers: Respiratory failure complication: hypoxia and hypercapnia Qualified Code(s): J96.21 - Acute and chronic respiratory failure with hypoxia; J96.22 - Acute and chronic respiratory failure with hypercapnia (4) COPD exacerbation Current Visit: No Status: Resolved (5) Smoking addiction Current Visit: No Status: Acute - Subjective Interval history: Patient seen and examined. No acute events noted overnight. Patient states overall he does not feel very well today and is short of breath. He reports a moist cough that is nonproductive. Denies any fevers or chills or rigors. Denies any pain in his chest. Denies any nausea, vomiting, diarrhea, constipation. Denies abdominal pain or urinary complaints. Reports his stools are loose, but not diarrhea. Denies any oral thrush or any skin lesions. Infect Dis PN-Objective Data - Labs CBC & Chem 7: 04/20/18 04:00 04/20/18 04:40 Labs: Laboratory Results - last 24 hr 04/17/18 04/17/18 04/18/18 16:26 21:31 07:55 WBC RBC Hgb Hct MCV MCH MCHC RDW Plt Count MPV Immature Gran % Seg Neutrophils % Lymphocytes % Monocytes % Eosinophils % Basophils % Neutrophils # Lymphocytes # Monocytes # Eosinophils # Basophils # Sodium Potassium Chloride Carbon Dioxide BUN Creatinine Est GFR ( Amer) Est GFR (Non-Af Amer) BUN/Creatinine Ratio Glucose POC Glucose 175 H 158 H 242 H Calculated Osmolality Calcium Phosphorus Magnesium 04/18/18 04/18/18 04/19/18 11:09 15:18 04:00 WBC 7.1 RBC 3.82 L Hgb 10.2 L Hct 33.2 L MCV 86.9 MCH 26.7 L MCHC 30.7 L RDW 15.8 H Plt Count 362 MPV 9.5 Immature Gran % 1.1 Seg Neutrophils % 87.4 Lymphocytes % 9.4 Monocytes % 2.0 Eosinophils % 0.0 Basophils % 0.1 Neutrophils # 6.2 Lymphocytes # 0.7 Monocytes # 0.1 Eosinophils # 0.0 Basophils # 0.0 Sodium Potassium Chloride Carbon Dioxide BUN Creatinine Est GFR ( Amer) Est GFR (Non-Af Amer) BUN/Creatinine Ratio Glucose POC Glucose 177 H 137 H Calculated Osmolality Calcium Phosphorus Magnesium 04/19/18 04:00 WBC RBC Hgb Hct MCV MCH MCHC RDW Plt Count MPV Immature Gran % Seg Neutrophils % Lymphocytes % Monocytes % Eosinophils % Basophils % Neutrophils # Lymphocytes # Monocytes # Eosinophils # Basophils # Sodium 136 Potassium 4.3 Chloride 92 L Carbon Dioxide 36 H BUN 31 H Creatinine 0.61 L Est GFR ( Amer) > 60 Est GFR (Non-Af Amer) > 60 BUN/Creatinine Ratio 51 H Glucose 212 H POC Glucose Calculated Osmolality 295 Calcium 9.1 Phosphorus 4.4 Magnesium 2.3 Cultures: Cultures 04/15/18 13:02 Sputum Culture - Preliminary Sputum Stenotrophomonas maltophilia 04/11/18 16:15 Blood Culture - Final Peripheral Venipuncture No growth. Final report. 04/11/18 16:26 Blood Culture - Final Peripheral Venipuncture No growth. Final report. 04/12/18 16:25 Sputum Culture - Final Sputum 04/12/18 06:10 Legionella Antigen - Final Urine,[place] Streptococcus pneumoniae Antigen (M - Final Serology 04/12/18 04/11/18 Range/Units 09:09 17:57 Urine Color Yellow (Yellow) Urine Clarity Clear (Clear) Urine pH 7.0 (5.0-8.0) pH Units Ur Specific [place] 1.022 (1.010-1.025) Urine Protein Negative (Neg-Trace) mg/dL Urine Glucose (UA) Normal (Normal) mg/dL Urine Ketones Negative (Negative) mg/dL Urine Blood Negative (Negative) Urine Nitrite Negative (Negative) Urine Bilirubin Negative (Negative) Urine Urobilinogen Normal (Normal) mg/dL Ur Leukocyte Esterase Negative (Negative) Ur Culture Indicated? NO (NO) Nasal Screen MRSA (PCR) Negative (Negative) Exam - Constitutional Vitals: Temp Pulse Resp BP Pulse Ox 97.9 F 58 13 117/80 97 04/18/18 20:52 04/19/18 07:21 04/19/18 07:56 04/19/18 07:21 04/19/18 07:56 General appearance: cooperative, no acute distress, obese - Head Head exam: Present: atraumatic, normal inspection, normocephalic - Eye Eye exam: Present: EOMI, normal appearance, PERRL Pupils: Present: normal accommodation - ENT ENT exam: Present: mucous membranes moist - Neck Neck exam: Present: normal inspection - Respiratory Respiratory exam: Present: rales (bilateral bases), rhonchi. Absent: wheezes Additional comments: On BIPAP. - Cardiovascular Cardiovascular exam: Present: RRR, +S1 - GI/Abdominal GI/Abdominal exam: Present: distended (obese), normal bowel sounds, soft. Absent: tenderness - Extremities Exam Extremities exam: Present: normal inspection. Absent: joint swelling, pedal edema, tenderness - Neurological Exam Neurological exam: Present: alert, oriented X3, no focal deficits - Psychiatric Psychiatric exam: Present: normal affect, normal mood - Skin Skin exam: Present: dry, intact, normal color, warm Consult Discharge Plan - Plan Referrals: Nilson Campa [Primary Care Provider] - - Attending Attestation I examined this patient and my medical decision-making was reviewed with the Resident Physician. I agree with the documented findings, disposition and treatment plan as described except to the extent set forth below.
[2018-04-19] MEDS: Budesonide/Formoterol 80/4.5 MDI IH SCH ×2 (10:58→20:17)
--- NOTE | 2018-04-19 15:23 | Internal Med Progress Note ---
Hospitalist Progress Note - Encounter Date of Encounter: 04/19/18 Time of Encounter: 15:20 - Subjective Interval History: I have seen and evaluated the patient at bedside. Patient report still feeling short of breath but that has improved when compared to admission. He denies chest pain, nausea, vomiting or lightheadedness. - Exam Vitals: Temp Pulse Resp BP Pulse Ox 97.1 F L 67 16 118/76 97 04/19/18 11:00 04/19/18 11:00 04/19/18 11:00 04/19/18 11:00 04/19/18 11:00 Exam: Vitals: Reviewed. General: Alert and oriented x4. No acute distress. Skin: erythematous rash in the inguinal area. Cardiovascular: RRR, Normal S1 & S2, no rubs, murmurs or gallops. Lungs: Rales the bases b/l more significant at the left lower lobe, mild scattered wheezes b/l, improved when compared with yesterday, no crackles. Abdomen: Obese, umbilical hernia, Soft, non-tender, no rigidity. Extremities: No deformity, no edema or tenderness, no joint swelling or clubbing. Neurological:Normal cognition. CN II-XII intact. Rest of the physical exam is non contributory - Assessment and Plan (1) Pneumonia Current Visit: Yes Status: Acute Assessment and Plan: Sputum cultures: grew stenotrophomonas maltophilia ID recommended mynocyclin 100mg/PO BID and Piperacillin/Tazobactam 3.375mg/IV Q8HRs Will discuss with ID about antibiotics for discharge planing. (2) Acute and chronic respiratory failure with hypoxia Current Visit: No Status: Acute Assessment and Plan: On oxygen by nasal cannula, titrate O2 sat duration more than 89%. Discussed with Pulm about discharge planing recommended to DC patient on high dose steroids Prednisone 50mg/PO daily for a week and tapered by 10 mg weekly until patient follows up with them. Continue scheduled bronchodilators and Symbicort. (3) COPD exacerbation Current Visit: No Status: Acute Assessment and Plan: Plan of care as above. (4) History of pulmonary embolism Current Visit: No Status: Chronic Assessment and Plan: On rivaroxaban 20mg/PO daily. (5) Diastolic CHF Current Visit: No Status: Chronic Assessment and Plan: Euvolemic. Continue furosemide 40 mg by mouth 3 times a day. Daily weight, fluid restricted strategies 1.5 L a day. (6) Obstructive sleep apnea Current Visit: No Status: Chronic Assessment and Plan: Nocturnal BiPap. (7) Obesity (BMI 30.0-34.9) Current Visit: No Status: Acute (8) Sepsis Current Visit: Yes Status: Resolved DVT Prophylaxis: Patient anticoagulated on rivaroxaban due to Hx of PE. - Summary of Assessment and Plan Summary of Assessment and Plan: Patient to remain in the hospital due to COPD exacerbation on IV steroids. Potential discharge tomorrow. - Time Spent with Patient Total time spent is greater than 50% in coordination of care (as documented) at patient's floor/unit and/or counseling patient: Greater than 35 minutes (40) Plan of Care Discussed with: patient (and the nurse.) Internal Medicine: Result - Labs CBC & Chem 7: 04/19/18 04:00 04/19/18 04:00 Labs: Short CBC 04/19/18 Range/Units 04:00 WBC 7.1 (4.3-11.1) K/mcL Hgb 10.2 L (12.9-16.9) g/dL Hct 33.2 L (37.5-50.1) % Plt Count 362 (140-400) K/mcL Neutrophils # 6.2 (1.6-8.9) K/mcL BMP 04/19/18 04:00 Sodium 136 Potassium 4.3 Chloride 92 L Carbon Dioxide 36 H BUN 31 H Creatinine 0.61 L Glucose 212 H Calcium 9.1 Consult Discharge Plan - Plan Referrals: Nilson Campa [Primary Care Provider] - (1) Pneumonia Qualifiers: Pneumonia type: due to unspecified organism Laterality: left Lung location: lower lobe of lung Qualified Code(s): J18.1 - Lobar pneumonia, unspecified organism (5) Diastolic CHF Qualifiers: Heart failure chronicity: acute on chronic Qualified Code(s): I50.33 - Acute on chronic diastolic (congestive) heart failure (8) Sepsis Qualifiers: Sepsis type: sepsis due to unspecified organism Qualified Code(s): A41.9 - Sepsis, unspecified organism
[2018-04-19] MEDS: *HR* Rivaroxaban 10 MG TABLET PO SCH (16:20)
[2018-04-19] MEDS: Clotrimazole 1% CRM 15 GM TUBE TP SCH (16:22)
[2018-04-20] MEDS: Ipratropium/Albuterol Neb 3 ML IH SCH ×6 (04:35→23:20)
[2018-04-20 04:40] LABS: Hematocrit 33.5 % (37.5-50.1); Hemoglobin 10.3 g/dL (12.9-16.9); Immature Granulocytes % 1.5 % (0-4); Lymphocytes # 0.5 K/mcL (0.6-4.6); Lymphocytes % 7.6 %; Mean Corpuscular HGB Conc 30.7 g/dL (31.6-35.5); Mean Corpuscular Hemoglobin 26.8 pg (28.0-33.3); Mean Corpuscular Volume 87.2 fL (83.0-100.0); Mean Platelet Volume 9.7 fL (9.4-12.4); Monocytes # 0.2 K/mcL (0.0-1.3); Monocytes % 2.2 %; Neutrophils # 5.9 K/mcL (1.6-8.9); Platelet Count 378 K/mcL (140-400); Red Blood Count 3.84 M/mcL (4.19-5.50); Red Cell Distribution Width 15.8 % (11.5-14.5); Segmented Neutrophils % 88.7 %
[2018-04-20 05:44] LABS: BUN/Creatinine Ratio 56 (6-26); Blood Urea Nitrogen 35 mg/dL (6-20); Carbon Dioxide 35 mEq/L (23-29); Chloride 93 mEq/L (98-107); Glucose 268 mg/dL (70-105); Osmolality,Calculated 297 (280-300); Potassium 4.3 mEq/L (3.5-5.1); Sodium 135 mEq/L (136-145); eGFR For Non-African Americans > 60 (> 60)
[2018-04-20] MEDS: Piperacillin/Tazobactam 3.375 GM in 0.9 % Sodium Chloride Mini Bag 100 ML IVPB SCH ×3 (06:54→23:31)
[2018-04-20] MEDS: Budesonide/Formoterol 80/4.5 MDI IH SCH ×2 (07:55→20:08)
[2018-04-20] MEDS: Insulin LISPRO 300 UNITS/3 ML VIAL SQ SCH ×4 (08:47→20:30)
[2018-04-20] MEDS: Loratadine 10 MG TABLET PO SCH (08:48)
[2018-04-20] MEDS: Gabapentin 300 MG CAPSULE PO SCH ×3 (08:48→20:28)
[2018-04-20] MEDS: Furosemide 20 MG TABLET PO SCH ×3 (08:48→17:21)
[2018-04-20] MEDS: Clotrimazole 1% CRM 15 GM TUBE TP SCH ×2 (08:49→20:31)
--- NOTE | 2018-04-20 10:12 | Infectious Disease Progress No ---
Date of Encounter: 04/20/18 Time of Encounter: 10:12 - Assessment and Plan (1) Sepsis Current Visit: Yes Status: Resolved The patient had four SIRS criteria on admission. Likely secondary to pneumonia. Improved. WBC normalized. Afebrile. Tachycardia and tachypnea resolved. Blood cultures drawn 04/11/18 are negative x 2 sets. Recommendations: - Await susceptibilities on Stenotrophomonas. - Repeat CXR. - Continue Zosyn 3.375 grams IV Q8H. - Continue minocycline 100mg PO Q12H. - Duration of treatment depends on the clinical picture. - Monitor renal function and dose-adjust antibiotics. Qualifiers: Sepsis type: sepsis due to unspecified organism Qualified Code(s): A41.9 - Sepsis, unspecified organism (2) Pneumonia Current Visit: No Status: Acute Causative organism: Stenotrophomonas maltophilia, resistant to levaquin and bactrim. Causative organism vs. colonizer. Discussed with pulmonology who believes this is not a colonizer, although the patient improved on Vanc and Zosyn. Send-out susceptibilities are pending. MRSA screen negative. Currently on Zosyn and minocycline. Qualifiers: Pneumonia type: aspiration pneumonia Aspiration pneumonia type: unspecified Laterality: left Lung location: lower lobe of lung Qualified Code(s): J69.0 - Pneumonitis due to inhalation of food and vomit (3) Acute and chronic respiratory failure Current Visit: No Status: Acute Likely secondary to PNA and COPD exacerbation. Management per the primary and pulmonology teams. Qualifiers: Respiratory failure complication: hypoxia and hypercapnia Qualified Code(s): J96.21 - Acute and chronic respiratory failure with hypoxia; J96.22 - Acute and chronic respiratory failure with hypercapnia (4) COPD exacerbation Current Visit: No Status: Resolved (5) Smoking addiction Current Visit: No Status: Acute - Subjective Interval history: Patient seen and examined. Appears comfortable. does not seem different clinically. continues to have shortness of breath. no diarrhea. no chest pain. no urinary symptoms Vital signs reviewed afebrile Labs reviewed: WBC 6.7 with 89% neutrophils, creatinine 0.63; susceptibility on the stenotrophomonas from reference lab pending Infect Dis PN-Objective Data - Labs CBC & Chem 7: 04/20/18 04:00 04/20/18 04:40 Labs: Laboratory Results - last 24 hr 04/18/18 04/19/18 04/19/18 20:45 07:25 11:20 WBC RBC Hgb Hct MCV MCH MCHC RDW Plt Count MPV Immature Gran % Seg Neutrophils % Lymphocytes % Monocytes % Eosinophils % Basophils % Neutrophils # Lymphocytes # Monocytes # Eosinophils # Basophils # Sodium Potassium Chloride Carbon Dioxide BUN Creatinine Est GFR ( Amer) Est GFR (Non-Af Amer) BUN/Creatinine Ratio Glucose POC Glucose 168 H 170 H 125 H Calculated Osmolality Calcium Specimen Rejected 04/20/18 04/20/18 04/20/18 04:00 04:00 04:40 WBC 6.7 RBC 3.84 L Hgb 10.3 L Hct 33.5 L MCV 87.2 MCH 26.8 L MCHC 30.7 L RDW 15.8 H Plt Count 378 MPV 9.7 Immature Gran % 1.5 Seg Neutrophils % 88.7 Lymphocytes % 7.6 Monocytes % 2.2 Eosinophils % 0.0 Basophils % 0.0 Neutrophils # 5.9 Lymphocytes # 0.5 L Monocytes # 0.2 Eosinophils # 0.0 Basophils # 0.0 Sodium 135 L Potassium 4.3 Chloride 93 L Carbon Dioxide 35 H BUN 35 H Creatinine 0.63 L Est GFR ( Amer) > 60 Est GFR (Non-Af Amer) > 60 BUN/Creatinine Ratio 56 H Glucose 268 H POC Glucose Calculated Osmolality 297 Calcium 9.0 Specimen Rejected Labelling Cultures: Cultures 04/15/18 13:02 Sputum Culture - Preliminary Sputum Stenotrophomonas maltophilia 04/11/18 16:15 Blood Culture - Final Peripheral Venipuncture No growth. Final report. 04/11/18 16:26 Blood Culture - Final Peripheral Venipuncture No growth. Final report. 04/12/18 16:25 Sputum Culture - Final Sputum 04/12/18 06:10 Legionella Antigen - Final Urine,[place] Streptococcus pneumoniae Antigen (M - Final Serology 04/12/18 04/11/18 Range/Units 09:09 17:57 Urine Color Yellow (Yellow) Urine Clarity Clear (Clear) Urine pH 7.0 (5.0-8.0) pH Units Ur Specific [place] 1.022 (1.010-1.025) Urine Protein Negative (Neg-Trace) mg/dL Urine Glucose (UA) Normal (Normal) mg/dL Urine Ketones Negative (Negative) mg/dL Urine Blood Negative (Negative) Urine Nitrite Negative (Negative) Urine Bilirubin Negative (Negative) Urine Urobilinogen Normal (Normal) mg/dL Ur Leukocyte Esterase Negative (Negative) Ur Culture Indicated? NO (NO) Nasal Screen MRSA (PCR) Negative (Negative) Exam - Constitutional Vitals: Temp Pulse Resp BP Pulse Ox 97.5 F L 71 17 125/82 98 04/20/18 07:36 04/20/18 07:36 04/20/18 07:57 04/20/18 07:36 04/20/18 07:57 General appearance: no acute distress, no febrile - Head Head exam: Present: atraumatic, normocephalic - Respiratory Additional comments: decreased breath sounds bilaterally with some wheezing. - Cardiovascular Cardiovascular exam: Present: RRR, +S1, +S2 - GI/Abdominal GI/Abdominal exam: Present: normal bowel sounds, soft. Absent: tenderness - Extremities Exam Extremities exam: Present: full ROM, normal inspection - Neurological Exam Neurological exam: Present: alert, oriented X3 Consult Discharge Plan - Plan Referrals: Nilson Campa [Primary Care Provider] -
--- NOTE | 2018-04-20 11:37 | Internal Med Progress Note ---
Hospitalist Progress Note - Encounter Date of Encounter: 04/20/18 Time of Encounter: 11:34 - Subjective Interval History: I have seen and evaluated the patient at bedside. Reports that he is still having a rough time to breath, but that it is close to his baseline. denies chest pain, nausea, vomiting. - Exam Vitals: Temp Pulse Resp BP Pulse Ox 97.5 F L 71 17 125/82 98 04/20/18 07:36 04/20/18 07:36 04/20/18 07:57 04/20/18 07:36 04/20/18 07:57 Exam: Vitals: Reviewed. General: AOx4. Mild distress due SOB. Skin: Erythematous rash in the inguinal area, improving. Cardiovascular: RRR, Normal S1 & S2, no rubs, murmurs or gallops. Lungs: Rales the bases b/l more significant at the left lower lobe, mild scattered wheezes b/l, no crackles. Abdomen: Obese, umbilical hernia, Soft, non-tender, no rigidity. Extremities: No edema. strength 5/5 upper and lower extr. Neurological: Normal cognition. CN II-XII intact. Rest of the physical exam is non contributory - Assessment and Plan (1) Pneumonia Current Visit: Yes Status: Acute Assessment and Plan: sputum culture: stenotrophomonas maltophilia MDRO extended sensitivity and specificity has been sent as per ID request: pending report On Piperacillin/tazobactam 3.375mg/IV Q8HRs and Minocycline 100mg/PO Discussed with ID recommended to continue same antimicrobial coverage until extended sputum sensitivity is resulted. (2) Acute and chronic respiratory failure with hypoxia Current Visit: No Status: Acute Assessment and Plan: patient on 3 litters of O2 by nasal cannula. continue O2 supplement, titrate for O2 Sat >89% as per pulm recommendations on scheduled bronchodilators and IV steroids (3) COPD exacerbation Current Visit: No Status: Acute Assessment and Plan: plan of care as above (4) History of pulmonary embolism Current Visit: No Status: Chronic Assessment and Plan: continue rivaroxavan 20mg/PO daily. home med. (5) Diastolic CHF Current Visit: No Status: Chronic Assessment and Plan: patient is euvolemic. on fluid restrictive strategies to 1.5 litters a day. daily weight On furosemide 40mg/PO TID (6) Obstructive sleep apnea Current Visit: No Status: Chronic Assessment and Plan: Nocturnal BiPap. (7) Obesity (BMI 30.0-34.9) Current Visit: No Status: Acute (8) Sepsis Current Visit: Yes Status: Resolved DVT Prophylaxis: Patient on an Oral anticoagulant due to A.fib. - Summary of Assessment and Plan Summary of Assessment and Plan: Patient to remain in the hospital due to pneumonia sputum grew MDRO pending extended sputum sensitivity and specificity. - Time Spent with Patient Total time spent is greater than 50% in coordination of care (as documented) at patient's floor/unit and/or counseling patient: Greater than 35 minutes (42) Plan of Care Discussed with: patient (and the nurse.) Internal Medicine: Result - Labs CBC & Chem 7: 04/20/18 04:00 04/20/18 04:40 Labs: Short CBC 04/20/18 Range/Units 04:00 WBC 6.7 (4.3-11.1) K/mcL Hgb 10.3 L (12.9-16.9) g/dL Hct 33.5 L (37.5-50.1) % Plt Count 378 (140-400) K/mcL Neutrophils # 5.9 (1.6-8.9) K/mcL BMP 04/20/18 04:40 Sodium 135 L Potassium 4.3 Chloride 93 L Carbon Dioxide 35 H BUN 35 H Creatinine 0.63 L Glucose 268 H Calcium 9.0 Consult Discharge Plan - Plan Referrals: Nilson Campa [Primary Care Provider] - (1) Pneumonia Qualifiers: Pneumonia type: due to unspecified organism Laterality: left Lung location: lower lobe of lung Qualified Code(s): J18.1 - Lobar pneumonia, unspecified organism (5) Diastolic CHF Qualifiers: Heart failure chronicity: acute on chronic Qualified Code(s): I50.33 - Acute on chronic diastolic (congestive) heart failure (8) Sepsis Qualifiers: Sepsis type: sepsis due to unspecified organism Qualified Code(s): A41.9 - Sepsis, unspecified organism
[2018-04-20] MEDS: MethylPREDNISolone 40 MG/ML VIAL IVP SCH ×2 (13:24→23:32)
[2018-04-20] MEDS: *HR* Rivaroxaban 10 MG TABLET PO SCH (17:21)
[2018-04-20] MEDS: *HR* HYDROcodone/Acet 5/325 mg TABLET PO PRN (20:28)
[2018-04-21] MEDS: Ipratropium/Albuterol Neb 3 ML IH SCH ×5 (04:32→20:46)
[2018-04-21] MEDS: *HR* HYDROcodone/Acet 5/325 mg TABLET PO PRN ×3 (04:33→22:38)
[2018-04-21 04:48] LABS: BUN/Creatinine Ratio 46 (6-26); Blood Urea Nitrogen 32 mg/dL (6-20); Calcium 8.7 mg/dL (8.6-10.3); Carbon Dioxide 35 mEq/L (23-29); Chloride 94 mEq/L (98-107); Glucose 290 mg/dL (70-105); Magnesium 2.1 mg/dL (1.6-2.6); Osmolality,Calculated 300 (280-300); Phosphorous 3.7 mg/dL (2.7-4.5); Potassium 4.2 mEq/L (3.5-5.1); Sodium 136 mEq/L (136-145); eGFR For Non-African Americans > 60 (> 60)
[2018-04-21] MEDS: Piperacillin/Tazobactam 3.375 GM in 0.9 % Sodium Chloride Mini Bag 100 ML IVPB SCH ×3 (06:22→22:39)
[2018-04-21] MEDS: Budesonide/Formoterol 80/4.5 MDI IH SCH ×2 (07:53→20:46)
[2018-04-21] MEDS: Insulin LISPRO 300 UNITS/3 ML VIAL SQ SCH ×4 (10:22→22:33)
[2018-04-21] MEDS: Gabapentin 300 MG CAPSULE PO SCH ×3 (10:22→22:38)
[2018-04-21] MEDS: Loratadine 10 MG TABLET PO SCH (10:22)
[2018-04-21] MEDS: Furosemide 20 MG TABLET PO SCH ×3 (10:22→16:48)
[2018-04-21] MEDS: Clotrimazole 1% CRM 15 GM TUBE TP SCH ×2 (10:25→22:39)
[2018-04-21] MEDS: MethylPREDNISolone 40 MG/ML VIAL IVP SCH (13:40)
--- NOTE | 2018-04-21 14:48 | Internal Med Progress Note ---
Hospitalist Progress Note - Encounter Date of Encounter: 04/21/18 Time of Encounter: 14:46 - Subjective Interval History: I have seen and evaluated the patient at bedside. Patient seen and evaluated at bedside, he reports abdominal pain and distention since today morning. reports that he has not been moving his bowel since yesterday, and has not passed gas. denies nausea or vomiting. - Exam Vitals: Temp Pulse Resp BP Pulse Ox 97.3 F L 66 16 133/78 97 04/21/18 11:49 04/21/18 11:49 04/21/18 11:49 04/21/18 11:49 04/21/18 11:49 Exam: Vitals: Reviewed. General: AOx4. Mild distress due SOB. Skin: Erythematous rash in the inguinal area, improving. Cardiovascular: RRR, Normal S1 & S2, no rubs, murmurs or gallops. Lungs: Rales the bases b/l at the left lower lobe, mild scattered wheezes b/l, no crackles. Abdomen: Obese, umbilical hernia, distended, hyperactive BS in all 4 quadrants, diffuse tenderness. Extremities: No edema. strength 5/5 upper and lower extr. Neurological: Normal cognition. CN II-XII intact. Rest of the physical exam is non contributory - Assessment and Plan (1) Pneumonia Current Visit: Yes Status: Acute Assessment and Plan: pending sputum culture extended sensitivity and specificity report on minocycline and Piperacillin/tazobactam per ID recommendations (2) Acute and chronic respiratory failure with hypoxia Current Visit: No Status: Acute Assessment and Plan: Still has scatter bilateral wheezing on auscultation. On4 L of oxygen by nasal cannula. Continue oxygen by nasal cannula, titrate for O2 sat duration more than 89%. Incentive spirometry Continue bronchodilators as scheduled and when necessary. On Symbicort. Continue methylprednisolone 40 mg IV twice a day. (3) COPD exacerbation Current Visit: No Status: Acute Assessment and Plan: Plan of care as above. (4) History of pulmonary embolism Current Visit: No Status: Chronic Assessment and Plan: Continue rivaroxaban 20 mg by mouth daily. (5) Diastolic CHF Current Visit: No Status: Chronic Assessment and Plan: Patient is euvolemic. Continue fluid restrictive is started is to 1.5 L a day. On furosemide 40 mg by mouth 3 times a day. (6) Obstructive sleep apnea Current Visit: No Status: Chronic Assessment and Plan: On nocturnal BiPAP. (7) Obesity (BMI 30.0-34.9) Current Visit: No Status: Acute (8) Sepsis Current Visit: Yes Status: Resolved (9) Abdominal pain Current Visit: Yes Status: Acute Assessment and Plan: Patient with an umbilical hernia. Will order an abdominal CT with IV and oral contrast. lipase and amylase. DVT Prophylaxis: On an AC due to Hx of DVT - Summary of Assessment and Plan Summary of Assessment and Plan: Patient to remain in the Hospital due pneumonia due to MDRO on the sputum. ID requested to keep patient until sputum culture and sensitivity resulted. - Time Spent with Patient Total time spent is greater than 50% in coordination of care (as documented) at patient's floor/unit and/or counseling patient: Greater than 35 minutes (40) Plan of Care Discussed with: patient (and the nurse.) Internal Medicine: Result - Labs CBC & Chem 7: 04/20/18 04:00 04/21/18 04:05 Labs: BMP 04/21/18 04:05 Sodium 136 Potassium 4.2 Chloride 94 L Carbon Dioxide 35 H BUN 32 H Creatinine 0.70 Glucose 290 H Calcium 8.7 - Impressions Impressions [facility] X-Ray 04/21/18 11:36 IMPRESSION: 1. New mild-moderate bowel distention which may relate to an adynamic ileus. 2. No evidence of obstruction. 3. Mild-moderate fecal retention which may relate to constipation. D/ 04/21/2018 14:23:46 Valentin Joe MD / sunshine Interpreting Provider: Valentin Joe MD Consult Discharge Plan - Plan Referrals: Nilson Campa [Primary Care Provider] - (1) Pneumonia Qualifiers: Pneumonia type: due to unspecified organism Laterality: left Lung location: lower lobe of lung Qualified Code(s): J18.1 - Lobar pneumonia, unspecified organism (5) Diastolic CHF Qualifiers: Heart failure chronicity: acute on chronic Qualified Code(s): I50.33 - Acute on chronic diastolic (congestive) heart failure (8) Sepsis Qualifiers: Sepsis type: sepsis due to unspecified organism Qualified Code(s): A41.9 - Sepsis, unspecified organism (9) Abdominal pain Qualifiers: Abdominal location: generalized Qualified Code(s): R10.84 - Generalized abdominal pain
[2018-04-21] MEDS: *HR* Rivaroxaban 10 MG TABLET PO SCH (16:48)
[2018-04-21 16:57] LABS: Amylase 50 Units/L (29-103); Lipase 11 Units/L (11-82)
[2018-04-22] MEDS: Ipratropium/Albuterol Neb 3 ML IH SCH ×7 (00:06→23:46)
[2018-04-22] MEDS: MethylPREDNISolone 40 MG/ML VIAL IVP SCH ×2 (01:20→11:54)
[2018-04-22] MEDS: Piperacillin/Tazobactam 3.375 GM in 0.9 % Sodium Chloride Mini Bag 100 ML IVPB SCH ×3 (06:30→22:10)
--- NOTE | 2018-04-22 07:29 | Internal Med Progress Note ---
Hospitalist Progress Note - Encounter Date of Encounter: 04/22/18 Time of Encounter: 07:26 - Subjective Interval History: I have seen and evaluated the patient at bedside. Patient reports that the abdominal distention and discomfort which he reported yesterday has resolved. Still reports feeling short of breath, but improved when compared to his admiss ion day. Denies chest pain, nausea or vomiting. As well as loose stool. - Exam Vitals: Temp Pulse Resp BP Pulse Ox 98.8 F 62 12 126/84 94 04/21/18 21:24 04/22/18 05:06 04/22/18 05:06 04/22/18 05:06 04/22/18 05:06 Exam: Vitals: Reviewed. General: AOx4. Mild distress due SOB. Skin: Erythematous rash in the inguinal area. Cardiovascular: RRR, Normal S1 & S2, no rubs, murmurs or gallops. Lungs: Rales the bases b/l L>R, mild scattered wheezes b/l, no crackles. Abdomen: Obese, umbilical hernia, distended, hyperactive BS in all 4 quadrants. Extremities: No edema. strength 5/5 upper and lower extr. Neurological: Normal cognition. CN II-XII intact - Assessment and Plan (1) Small bowel obstruction Current Visit: Yes Status: Acute Assessment and Plan: patient reported abdominal pain. CT abd/Pelvis with PO contrast: CT/CT abd pelvis wo iv oral only IMPRESSION: 1. Umbilical hernia containing small bowel with a caliber change at the within the hernia. Small bowel is dilated proximal to this suggesting a small bowel obstruction within the hernia. Plan NPO surgery consulted NG tube placement to low intermittent suction Accu-checks Q6HR plus sliding scale will start low dose IV fluid to avoid hypoglycemia. (2) Pneumonia Current Visit: Yes Status: Acute Assessment and Plan: Patient on broad spectrum antibiotics. will continue same pending extended sensitivity and specificity from sputum as requested per ID (3) Acute and chronic respiratory failure with hypoxia Current Visit: No Status: Acute Assessment and Plan: on O2 by nasal cannula, titrate for O2Sat >90% Continue Broncodilators scheduled symbicort (4) COPD exacerbation Current Visit: No Status: Resolved Assessment and Plan: plan of care as above (5) History of pulmonary embolism Current Visit: No Status: Chronic Assessment and Plan: Hold today dose of Xarelto pending surgery evaluation. (6) Diastolic CHF Current Visit: No Status: Chronic Assessment and Plan: euvolemic. fluid restriction to 1.5 litters a day. on furosemide 40mg/PO TID. daily weight. (7) Obstructive sleep apnea Current Visit: No Status: Chronic Assessment and Plan: Nocturnal Bipap. (8) Obesity (BMI 30.0-34.9) Current Visit: No Status: Acute (9) Sepsis Current Visit: Yes Status: Resolved DVT Prophylaxis: On xarelto 20/PO daily due to Hx of DVT - Summary of Assessment and Plan Summary of Assessment and Plan: Patient to remain in the hospital due to small bowel obstruction within the umbilical hernia. Surgery consulted. - Time Spent with Patient Total time spent is greater than 50% in coordination of care (as documented) at patient's floor/unit and/or counseling patient: Greater than 35 minutes (40) Plan of Care Discussed with: patient (and the nurse.) Internal Medicine: Result - Labs CBC & Chem 7: 04/20/18 04:00 04/21/18 04:05 - Impressions Impressions KUB X-Ray 04/21/18 11:36 IMPRESSION: 1. New mild-moderate bowel distention which may relate to an adynamic ileus. 2. No evidence of obstruction. 3. Mild-moderate fecal retention which may relate to constipation. D/ / 04/21/2018 14:23:46 Valentin Joe MD / sunshine Interpreting Provider: Valentin Joe MD Abdomen/Pelvis CT 04/21/18 17:30 IMPRESSION: 1. Umbilical hernia containing small bowel with a caliber change at the within the hernia. Small bowel is dilated proximal to this suggesting a small bowel obstruction within the hernia. 2. Emphysematous changes with scarring in the lung bases 3. Normal appearing gallbladder 4. Normal appearing appendix 5. No obstructive uropathy D/ / Martinez Radford MD / Martinez Radford MD Interpreting Provider: Martinez Radford MD Consult Discharge Plan - Plan Referrals: Nilson Campa [Primary Care Provider] - (2) Pneumonia Qualifiers: Pneumonia type: due to unspecified organism Laterality: left Lung location: lower lobe of lung Qualified Code(s): J18.1 - Lobar pneumonia, unspecified organism (6) Diastolic CHF Qualifiers: Heart failure chronicity: acute on chronic Qualified Code(s): I50.33 - Acute on chronic diastolic (congestive) heart failure (9) Sepsis Qualifiers: Sepsis type: sepsis due to unspecified organism Qualified Code(s): A41.9 - Sepsis, unspecified organism
[2018-04-22] MEDS ORDERED: D5% in 0.45% NACL 1,000 ML IVC SCH (07:45)
[2018-04-22] MEDS: Insulin LISPRO 300 UNITS/3 ML VIAL SQ SCH ×4 (07:48→22:09)
[2018-04-22] MEDS: Budesonide/Formoterol 80/4.5 MDI IH SCH ×2 (07:55→19:55)
--- NOTE | 2018-04-22 09:12 | General Surgery Consult Note ---
Date of Encounter: 04/22/18 Time of Encounter: 09:08 Assessment and Plan (1) Small bowel obstruction Current Visit: Yes Status: Acute I explained to the patient that I personally reviewed the CT scan images and report from yesterday which did demonstrate dilated small bowel loops concerning for an obstruction particularly at the level of the umbilicus. Currently he has no signs of abdominal distention nor any signs of obstruction. I think that his symptoms have resolved and the patient even admits that after his CAT scan yesterday he felt better. Given his comorbidities particularly his lung status I would not recommend any type of surgery at this time for fear that he may not be able to be extubated and would possibly require tracheostomy. I did explain however that if he were to have continued problems or bowel obstructive did not resolve then he would likely require urgent or emergent surgical procedure regardless of his lung status. The patient verbalizes understanding. I think it would be appropriate to allow clears to see and ensure that he is not having any problems with nausea vomiting or distention. If he tolerates and could be further advance to full liquids and advance as tolerated. I discussed this issue also with the hospitalist. History of Present Illness Consult date: 04/22/18 Reason for consult: other (umbilical hernia/small bowel obsturction) Requesting physician: Avila Parham History of present illness: Patient is a 58-year-old male with a past medical history significant for severe COPD and asthma who has been admitted to the [facility] secondary to COPD exacerbation. Is also been documented with pneumonia and is currently being treated with IV antibiotics. I been asked to evaluate the patient secondary to abdominal distention and abnormal CT scan suggesting small bowel obstruction. Currently the patient states that his abdomen feels normal and he has been passing flatus. He states that he is known these had an umbilical hernia for around 5 years. He states he is only able to press it back within or reduce the umbilical hernia but yesterday it was more "tight" and was not reducible. He states that he did have a bowel movement yesterday before the episode of the abdominal distention. He does not really describe any pain but does admit that he was feeling "tight" yesterday. Currently is not having any episodes of pain or discomfort or abdominal distention and he feels that his abdomen feels normal. Past Med Surg Social Fam HX - Past Medical History Medical history: CHF, COPD, hyperlipidemia, hypertension, pulmonary embolus Additional medical history: umbilical hernia Psychiatric history: anxiety, depression - Past Surgical History Surgical History: no surgical history - Social History Smoking Status: Former smoker Smokeless Tobacco Status: No Alcohol use: none Drug use: none - Family History Father Living Status: Hx Family Cancer: Yes (colon) Mother Living Status: Hx Family Cancer: Yes Medications and Allergies RX: Oxygen 4 l NS CONT 07/25/17 [History] RX: Roflumilast [Daliresp] 500 mcg PO DAILY 07/25/17 [History] RX: Furosemide [Lasix] 40 mg PO TID #90 tab 09/20/17 [Rx] RX: Omeprazole [PriLOSEC] 20 mg PO 0730 09/30/17 [History] RX: Loratadine [Claritin] 10 mg PO DAILY #30 tablet 11/09/17 [Rx] RX: Gabapentin [Neurontin] 300 mg PO TID 12/31/17 [History] RX: Albuterol Sulfate [Albuterol Inhaler] 2 puff IH Q4H PRN #1 inhaler 01/17/18 [Rx] RX: Rivaroxaban [Xarelto] 20 mg PO DAILY@1700 03/06/18 [History] RX: GuaiFENesin ER [Mucinex] 600 mg PO BID #30 tbbp.12hr 03/22/18 [Rx] Fluticasone/Salmeterol [Advair Hfa 115-21 Mcg Inhaler] 2 puff IH BID 04/11/18 [History] RX: Amoxicillin/Clavulanate [Augmentin] 500 mg PO BIDWM #10 tablet 04/11/18 [Rx] RX: Ipratropium/Albuterol Sulfate [Iprat-Albut 0.5-3(2.5) mg/3 ml] 1 vial IH Q4H PRN 04/11/18 [History] RX: Potassium Chloride 20 meq PO DAILY #30 tab.er.prt 04/11/18 [Rx] Allergy/AdvReac Type Severity Reaction Status Date / Time levofloxacin AdvReac Blurry Verified 03/20/18 13:24 Vision Review of Systems All systems PM: reviewed and no additional remarkable complaints except as stated All systems PM: The remainder of the systems were reviewed and are negative General Surgery Exam Initial Vital Signs Temp Pulse Resp BP Pulse Ox 98.1 F 117 24 148/84 89 04/11/18 14:04 04/11/18 14:04 04/11/18 14:04 04/11/18 14:04 04/11/18 14:04 - Eyes PERRL, normal ocular movement - Respiratory other (A lateral rhonchi with inspiration. For respiratory effort.) - Cardiovascular Cardiovascular exam: Present: RRR, no murmurs/rubs/gallops - Abdomen Abdomen general surgery: Present: bowel sounds present, soft (Obese, positive bowel sounds. Noted umbilical hernia easily reducible. No pain to palpation. No masses palpated) - Neurologic Present: CN 2-12 grossly intact - Musculoskeletal Present: other (No clubbing or cyanosis) Exam Initial Vital Signs Temp Pulse Resp BP Pulse Ox 98.1 F 117 24 148/84 89 04/11/18 14:04 04/11/18 14:04 04/11/18 14:04 04/11/18 14:04 04/11/18 14:04 Results - Labs 04/20/18 04:00 04/21/18 04:05 Abnormal lab results RBC 3.84 M/mcL (4.19-5.50) L 04/20/18 04:00 Hgb 10.3 g/dL (12.9-16.9) L 04/20/18 04:00 Hct 33.5 % (37.5-50.1) L 04/20/18 04:00 MCH 26.8 pg (28.0-33.3) L 04/20/18 04:00 MCHC 30.7 g/dL (31.6-35.5) L 04/20/18 04:00 RDW 15.8 % (11.5-14.5) H 04/20/18 04:00 Lymphocytes # 0.5 K/mcL (0.6-4.6) L 04/20/18 04:00 Chloride 94 mEq/L (98-107) L 04/21/18 04:05 Carbon Dioxide 35 mEq/L (23-29) H 04/21/18 04:05 BUN 32 mg/dL (6-20) H 04/21/18 04:05 BUN/Creatinine Ratio 46 (6-26) H 04/21/18 04:05 Glucose 290 mg/dL (70-105) H 04/21/18 04:05 POC Glucose 119 mg/dL (70-99) H 04/21/18 11:52 Vancomycin Trough 14 mcg/mL (5-10) H 04/13/18 03:23 All other labs normal. Consult Discharge Plan - Plan Referrals: Nilson Campa [Primary Care Provider] -
[2018-04-22] MEDS: Sennosides/Docusate Sodium TABLET PO SCH ×2 (09:32→22:10)
[2018-04-22] MEDS: Loratadine 10 MG TABLET PO SCH (09:32)
[2018-04-22] MEDS: Clotrimazole 1% CRM 15 GM TUBE TP SCH ×2 (09:32→22:11)
[2018-04-22] MEDS: Furosemide 20 MG TABLET PO SCH ×3 (09:32→16:01)
[2018-04-22] MEDS: Gabapentin 300 MG CAPSULE PO SCH ×3 (09:32→22:11)
[2018-04-22] MEDS: *HR* Rivaroxaban 10 MG TABLET PO SCH (16:01)
[2018-04-23] MEDS: MethylPREDNISolone 40 MG/ML VIAL IVP SCH (00:38)
[2018-04-23] MEDS: Ipratropium/Albuterol Neb 3 ML IH SCH ×3 (04:18→11:12)
[2018-04-23 05:58] LABS: Hemoglobin 11.1 g/dL (12.9-16.9); Immature Granulocytes % 0.4 % (0-4); Lymphocytes % 9.8 %; Mean Corpuscular HGB Conc 30.8 g/dL (31.6-35.5); Mean Corpuscular Hemoglobin 26.4 pg (28.0-33.3); Mean Corpuscular Volume 85.5 fL (83.0-100.0); Mean Platelet Volume 9.6 fL (9.4-12.4); Monocytes % 1.7 %; Platelet Count 371 K/mcL (140-400); Red Blood Count 4.21 M/mcL (4.19-5.50); Red Cell Distribution Width 15.8 % (11.5-14.5); Segmented Neutrophils % 88.1 %
[2018-04-23 05:59] LABS: Lymphocytes # 0.8 K/mcL (0.6-4.6); Monocytes # 0.1 K/mcL (0.0-1.3); Neutrophils # 6.7 K/mcL (1.6-8.9)
[2018-04-23 06:11] LABS: BUN/Creatinine Ratio 44 (6-26); Blood Urea Nitrogen 25 mg/dL (6-20); Carbon Dioxide 38 mEq/L (23-29); Chloride 91 mEq/L (98-107); Glucose 141 mg/dL (70-105); Magnesium 2.1 mg/dL (1.6-2.6); Osmolality,Calculated 287 (280-300); Phosphorous 4.1 mg/dL (2.7-4.5); Potassium 4.1 mEq/L (3.5-5.1); Sodium 135 mEq/L (136-145); eGFR For Non-African Americans > 60 (> 60)
[2018-04-23] MEDS: Piperacillin/Tazobactam 3.375 GM in 0.9 % Sodium Chloride Mini Bag 100 ML IVPB SCH (06:56)
[2018-04-23] MEDS: Budesonide/Formoterol 80/4.5 MDI IH SCH (07:34)
[2018-04-23] MEDS: Insulin LISPRO 300 UNITS/3 ML VIAL SQ SCH (07:50)
[2018-04-23] MEDS: Sennosides/Docusate Sodium TABLET PO SCH (07:51)
[2018-04-23] MEDS: Gabapentin 300 MG CAPSULE PO SCH (07:51)
[2018-04-23] MEDS: Furosemide 20 MG TABLET PO SCH (07:51)
[2018-04-23] MEDS: Loratadine 10 MG TABLET PO SCH (07:52)
[2018-04-23] MEDS: Clotrimazole 1% CRM 15 GM TUBE TP SCH (07:52)
--- NOTE | 2018-04-23 10:13 | Discharge Summary ---
- NOTES TO OUTPATIENT PROVIDER Notes to Outpatient Provider: Follow-up with pulmonology within a week of hospital discharge. Date of Encounter: 04/23/18 Time of Encounter: 10:06 - Discharge Diagnosis (1) Small bowel obstruction Priority: Primary Status: Resolved (2) Pneumonia Priority: Secondary Status: Acute Qualifiers: Pneumonia type: due to unspecified organism Laterality: left Lung location: lower lobe of lung Qualified Code(s): J18.1 - Lobar pneumonia, unspecified organism (3) Acute and chronic respiratory failure with hypoxia Priority: Primary Status: Resolved (4) COPD exacerbation Priority: Primary Status: Resolved (5) History of pulmonary embolism Priority: Secondary Status: Chronic (6) Diastolic CHF Priority: Secondary Status: Chronic Qualifiers: Heart failure chronicity: acute on chronic Qualified Code(s): I50.33 - Acute on chronic diastolic (congestive) heart failure (7) Obstructive sleep apnea Priority: Secondary Status: Chronic (8) Obesity (BMI 30.0-34.9) Priority: Secondary Status: Chronic (9) Sepsis Priority: Secondary Status: Resolved Qualifiers: Sepsis type: sepsis due to unspecified organism Qualified Code(s): A41.9 - Sepsis, unspecified organism Hospital course: Mr. Blanchard is a 58 year old male PMHx significant for Chronic Hypoxic Respiratory Failure on 4L O2 at home, CHF with preserved EF, COPD, HTN, HLD, and history of PE who presents to the ED with complaints on SOB. Patient found to be febrile, with elevated HR, RR, white count. Lactic Acid found to elevated to 2.3. Patient admitted to the hospital due to sepsis, secondary to pneumonia, acute on chronic respiratory failure. Patient managed with IV fluid, broad spectrum antibiotics and high dose of IV steroids. Sputum culture grew MRDO, extended sensitivity and speificity was sensitive to minocycline. ID recommended to DC the patient on minocycline 100mg/PO BID x14 days. Blood culture: No growth, final report. Pulmonary team consulted, recommended to keep the patient in high dose steroids, prednisone 50mg/PO daily and titrate it down by 10mg every week until the patient follows up at the office within a week of hospital discharge. Due to recent admission and treatment for pneumonia, aspiration pneumonia was r/o MODIFIED BARIUM SWALLOW WAS PERFORMED IN CONJUNCTION WITH SPEECH PATHOLOGY SERVICES: IMPRESSION: 1. Small amount of prominence transient laryngeal penetration, without evidence of aspiration with thin liquids. 2. No evidence of laryngeal penetration or aspiration with pudding consistency barium, or barium coated cracker. Patient was reporting abdominal pain for which a ct abd/pelvis was done: IMPRESSION: 1. Umbilical hernia containing small bowel with a caliber change at the within the hernia. Small bowel is dilated proximal to this suggesting a small bowel obstruction within the hernia. Surgery consulted recommended against any intervention as symptoms have resolved when they evaluated the patient, and recommended to continue regular diet ant outpatient follow up. Patient acute symptoms have resolved and patient is back to his baseline, hemodynamically stable to be discharged home on minocycline for 14 days. strongly recommended to follow up with pulmonary team within a week of hospital discharge. - Time Spent with Patient Total time spent providing and/or coordinating discharge services: Greater than 30 minutes (45) - Discharge Medications Prescriptions: Minocycline [Minocin] 100 mg PO Q12HR 14 Days #28 capsule predniSONE [Prednisone] 50 mg PO DAILY 7 Days #7 tablet predniSONE [PredniSONE] 40 mg PO DAILY 7 Days #7 tablet Sennosides/Docusate Sodium [Senna Plus] 2 each PO BID 30 Days #60 tablet Home Medications: Oxygen 4 l NS CONT 07/25/17 [History] Roflumilast [Daliresp] 500 mcg PO DAILY 07/25/17 [History] Furosemide [Lasix] 40 mg PO TID #90 tab 09/20/17 [Rx] Omeprazole [PriLOSEC] 20 mg PO 0730 09/30/17 [History] Loratadine [Claritin] 10 mg PO DAILY #30 tablet 11/09/17 [Rx] Gabapentin [Neurontin] 300 mg PO TID 12/31/17 [History] Albuterol Sulfate [Albuterol Inhaler] 2 puff IH Q4H PRN #1 inhaler 01/17/18 [Rx] Rivaroxaban [Xarelto] 20 mg PO DAILY@1700 03/06/18 [History] GuaiFENesin ER [Mucinex] 600 mg PO BID #30 tbbp.12hr 03/22/18 [Rx] Fluticasone/Salmeterol [Advair Hfa 115-21 Mcg Inhaler] 2 puff IH BID 04/11/18 [History] Ipratropium/Albuterol Sulfate [Iprat-Albut 0.5-3(2.5) mg/3 ml] 1 vial IH Q4H PRN 04/11/18 [History] Potassium Chloride 20 meq PO DAILY #30 tab.er.prt 04/11/18 [Rx] Minocycline [Minocin] 100 mg PO Q12HR 14 Days #28 capsule 04/23/18 [Rx] Sennosides/Docusate Sodium [Senna Plus] 2 each PO BID 30 Days #60 tablet 04/23/18 [Rx] predniSONE [PredniSONE] 40 mg PO DAILY 7 Days #7 tablet 04/23/18 [Rx] predniSONE [Prednisone] 50 mg PO DAILY 7 Days #7 tablet 04/23/18 [Rx] Allergies/Adverse Reactions: Allergy/AdvReac Type Severity Reaction Status Date / Time levofloxacin AdvReac Blurry Verified 03/20/18 13:24 [facility] Date of admission: 04/11/18 21:26 Primary care physician: Nilson Campa Consults: 04/11/18 16:45 Consult to Invasive Line Access Team [CONS] Routine Reason for Consult: limited vascular access with need for multiple IV medications and multiple unsuccesful attempts at IV placement. Line Type: EPIV 04/12/18 15:16 PT [Consult to Physical Therapy] [CONS] Routine Comment: Evaluate, develop and implement POC Reason for Consult: patient uses cane at home very weak, and has fallen at home bmat scrore is 3 due to the cane unsteady gait Does patient have active BEDREST order?: No Is patient medically & hemodynamically stable?: Yes Patient assessed for mobility or mobilized this visit?: No 04/12/18 15:18 Consult to Occupational Therapy [CONS] Routine Comment: Evaluate, develop and implement POC Reason for Consult: patient is very weak and uses cane at home. unsteady gait recent fall at home Does patient have active BEDREST order?: No Is patient medically & hemodynamically stable?: Yes Patient assessed for mobility or mobilized this visit?: No 04/14/18 11:52 Consult to Patent Attorney [CONS] Routine Reason for SW Consult: Need ECF discharge 04/15/18 09:42 Consult to Pulmonology [CONS] Routine Consulting Provider: [facility] [place] Reason for Consult: COPD exacerbation, slow progression to treatment Call Completed: Yes 04/17/18 16:04 Consult to Infectious Diseases [CONS] Stat Consulting Provider: Infectious Disease Jeaneth Reason for Consult: Multidrugs resistant organism Call Completed: Yes - Constitutional Vitals: Temp Pulse Resp BP Pulse Ox 98.1 F 60 16 110/84 95 04/23/18 04:51 04/23/18 06:43 04/23/18 07:34 04/23/18 06:43 04/23/18 07:34 General appearance: Present: cooperative, A&O X 3, pleasant, no acute distress, answers questions appropriately Exam: Vitals: Reviewed. General: AOx4. No acute distress Skin: Erythematous rash in the inguinal area. Cardiovascular: RRR, Normal S1 & S2, no rubs, murmurs or gallops. Lungs: Rales the bases b/l L>R, improved when compared with yesterday, mild scattered wheezes b/l, no crackles. Abdomen: Obese, umbilical hernia, distended, hyperactive BS in all 4 quadrants. Extremities: No edema. strength 5/5 upper and lower extr. Neurological: Normal cognition. CN II-XII intact Psych: Affect appropriate. - Patient Status Disposition: Home, Self-Care Condition: Good Functional capacity at discharge: uses cane/walker Overall status at discharge: patient is back to baseline - Discharge Instructions Follow Up With: Nilson Campa [Primary Care Provider] - - Diet and Activity Activity: resume usual activities as tolerated, wear oxygen at all times Diet: low salt diet
[2018-04-23 11:09] VITALS: BP 120/87
--- NOTE | 2018-04-23 14:13 | Physician Discharge Referral ---
Home Health/Hosp Referral Info Transfer to: Home Health - Diagnosis (1) Small bowel obstruction Priority: Secondary Status: Resolved (2) Pneumonia Priority: Primary Status: Acute (3) Acute and chronic respiratory failure with hypoxia Priority: Primary Status: Resolved (4) COPD exacerbation Priority: Secondary Status: Resolved (5) History of pulmonary embolism Priority: Secondary Status: Chronic (6) Diastolic CHF Priority: Secondary Status: Chronic (7) Obstructive sleep apnea Priority: Secondary Status: Chronic (8) Obesity (BMI 30.0-34.9) Priority: Secondary Status: Chronic (9) Sepsis Priority: Secondary Status: Resolved - Respiratory Orders Oxygen / L per min (3) Smoking Cessation: Smoking cessation has been advised. For more information, call the [employer] Quit Line at 8-954-NABF-NOW. - Diet/Nutrition Diet/Nutrition Orders: Regular - Activity Activity Orders: Ambulate - Services Needed Following services are medically necessary services: Nursing, Home Health Aide, Physical Therapy, Occupational Therapy - Transfer Medications Prescriptions: Minocycline [Minocin] 100 mg PO Q12HR 14 Days #28 capsule predniSONE [Prednisone] 50 mg PO DAILY 7 Days #7 tablet predniSONE [PredniSONE] 40 mg PO DAILY 7 Days #7 tablet Sennosides/Docusate Sodium [Senna Plus] 2 each PO BID 30 Days #60 tablet Home Medications: Oxygen 4 l NS CONT 07/25/17 [History] Roflumilast [Daliresp] 500 mcg PO DAILY 07/25/17 [History] Furosemide [Lasix] 40 mg PO TID #90 tab 09/20/17 [Rx] Omeprazole [PriLOSEC] 20 mg PO 0730 09/30/17 [History] Loratadine [Claritin] 10 mg PO DAILY #30 tablet 11/09/17 [Rx] Gabapentin [Neurontin] 300 mg PO TID 12/31/17 [History] Albuterol Sulfate [Albuterol Inhaler] 2 puff IH Q4H PRN #1 inhaler 01/17/18 [Rx] Rivaroxaban [Xarelto] 20 mg PO DAILY@1700 03/06/18 [History] GuaiFENesin ER [Mucinex] 600 mg PO BID #30 tbbp.12hr 03/22/18 [Rx] Fluticasone/Salmeterol [Advair Hfa 115-21 Mcg Inhaler] 2 puff IH BID 04/11/18 [History] Ipratropium/Albuterol Sulfate [Iprat-Albut 0.5-3(2.5) mg/3 ml] 1 vial IH Q4H PRN 04/11/18 [History] Potassium Chloride 20 meq PO DAILY #30 tab.er.prt 04/11/18 [Rx] Minocycline [Minocin] 100 mg PO Q12HR 14 Days #28 capsule 04/23/18 [Rx] Sennosides/Docusate Sodium [Senna Plus] 2 each PO BID 30 Days #60 tablet 04/23/18 [Rx] predniSONE [PredniSONE] 40 mg PO DAILY 7 Days #7 tablet 04/23/18 [Rx] predniSONE [Prednisone] 50 mg PO DAILY 7 Days #7 tablet 04/23/18 [Rx] Allergies/Adverse Reactions: Allergy/AdvReac Type Severity Reaction Status Date / Time levofloxacin AdvReac Blurry Verified 03/20/18 13:24 [facility] Certification: Further, I certify that my clinical findings support that this patient is homebound (i.e. absences from home require considerable and taxing effort and are for medical reasons or holiness services or infrequently or short duration when for other reasons) because: Homebound Reason: Patient requires assistance of a person or device to safely leave home Attestation: My signature below is to certify that this patient is under my care and that I, or nurse practitioner, or a physician's speech language pathologist assistant working with me, has a [id number] encounter with this patient.
== END 2018-04-23 13:58 | disposition home or self-care (01) | DRG 720 ==
LOC: 2NENU 14:01 → EMEROOARM 14:01 → 2NENU 20:28 → SUATTDRO 21:26
PROVIDERS: ADMIT Hospitalist; ATTEND Internal Medicine

== ENCOUNTER 2018-04-25 14:38 | Inpatient (IN) ==
[2018-04-25] MEDS ORDERED: Ipratropium/Albuterol Neb 3 ML IH ONE (15:01)
[2018-04-25] MEDS ORDERED: methylPREDNISolone 125 MG/2 ML VIAL IVP ONE (15:01)
--- NOTE | 2018-04-25 15:08 | Emergency Department Note ---
Disposition Clinical Impression: COPD with exacerbation Disposition: Admitted As Inpatient Referrals: Nilson Campa [Primary Care Provider] - Forms: ED Satisfaction Letter Time of Disposition: 18:54 General Adult HPI - General Chief complaint: ED Shortness of Breath/Dyspnea Stated complaint: PHYLLIS Time Seen by Provider: 04/25/18 14:43 Source: patient Limitations: no limitations - History of Present Illness Pain Scale: 8 - Related Data Home Medications Medication Instructions Recorded Confirmed Oxygen 4 l NS CONT 07/25/17 04/11/18 Roflumilast [Daliresp] 500 mcg PO DAILY 07/25/17 04/11/18 Omeprazole [PriLOSEC] 20 mg PO 0730 09/30/17 04/11/18 Gabapentin [Neurontin] 300 mg PO TID 12/31/17 04/11/18 Rivaroxaban [Xarelto] 20 mg PO DAILY@1700 03/06/18 04/11/18 Fluticasone/Salmeterol [Advair Hfa 2 puff IH BID 04/11/18 04/11/18 115-21 Mcg Inhaler] Ipratropium/Albuterol Sulfate 1 vial IH Q4H PRN 04/11/18 04/11/18 [Iprat-Albut 0.5-3(2.5) mg/3 ml] Previous Rx's Medication Instructions Recorded Furosemide [Lasix] 40 mg PO TID #90 tab 09/20/17 Loratadine [Claritin] 10 mg PO DAILY #30 tablet 11/09/17 Albuterol Sulfate [Albuterol 2 puff IH Q4H PRN #1 inhaler 01/17/18 Inhaler] GuaiFENesin ER [Mucinex] 600 mg PO BID #30 tbbp.12hr 03/22/18 Potassium Chloride 20 meq PO DAILY #30 tab.er.prt 04/11/18 Minocycline [Minocin] 100 mg PO Q12HR 14 Days #28 capsule 04/23/18 Sennosides/Docusate Sodium [Senna 2 each PO BID 30 Days #60 tablet 04/23/18 Plus] predniSONE [PredniSONE] 40 mg PO DAILY 7 Days #7 tablet 04/23/18 predniSONE [Prednisone] 50 mg PO DAILY 7 Days #7 tablet 04/23/18 Allergies Allergy/AdvReac Type Severity Reaction Status Date / Time levofloxacin AdvReac Blurry Verified 04/25/18 14:40 [facility] Past Medical History - Past Medical History Medical history: Reports: CHF, COPD, hyperlipidemia, hypertension, pulmonary embolus Surgical history: Reports: no surgical history Psychiatric history: Reports: anxiety, depression - Social History Smoking Status: Former smoker Smokeless Tobacco Status: No Alcohol use: Reports: none Drug use: Reports: none Physical Exam - General Limitations: no limitations General appearance: alert, in no apparent distress Course Vital Signs Temperature 97.9 F 04/25/18 14:40 Pulse Rate 136 04/25/18 14:40 Respiratory Rate 26 04/25/18 14:40 Blood Pressure 134/83 04/25/18 14:40 O2 Sat by Pulse Oximetry 92 04/25/18 14:40 Temperature 97.9 F 04/25/18 14:51 Pulse Rate 95 04/25/18 18:38 Respiratory Rate 20 04/25/18 18:38 Blood Pressure 119/75 04/25/18 18:38 O2 Sat by Pulse Oximetry 100 04/25/18 18:38 Oxygen Delivery Oxygen Delivery Nasal Cannula Medical Decision Making - Lab Data Result diagrams: 04/25/18 16:29 04/25/18 17:56 Lab Results 04/25/18 04/25/18 04/25/18 Range/Units 16:29 16:29 16:29 WBC 11.6 H D (4.3-11.1) K/mcL RBC 5.15 (4.19-5.50) M/mcL Hgb 13.6 D (12.9-16.9) g/dL Hct 44.3 (37.5-50.1) % MCV 86.0 (83.0-100.0) fL MCH 26.4 L (28.0-33.3) pg MCHC 30.7 L (31.6-35.5) g/dL RDW 15.9 H (11.5-14.5) % Plt Count 368 (140-400) K/mcL MPV 9.6 (9.4-12.4) fL Immature Gran % 0.4 (0-4) % Seg Neutrophils % 72.2 % Lymphocytes % 21.6 % Monocytes % 4.5 % Eosinophils % 1.1 % Basophils % 0.2 % Neutrophils # 8.4 (1.6-8.9) K/mcL Lymphocytes # 2.5 (0.6-4.6) K/mcL Monocytes # 0.5 (0.0-1.3) K/mcL Eosinophils # 0.1 (0.0-0.6) K/mcL Basophils # 0.0 (0.0-0.2) K/mcL Sodium Cancelled Potassium Cancelled Chloride Cancelled Carbon Dioxide Cancelled BUN Cancelled Creatinine Cancelled Est GFR ( Amer) Cancelled Est GFR (Non-Af Amer) Cancelled BUN/Creatinine Ratio Cancelled Glucose Cancelled Calculated Osmolality Cancelled Lactic Acid 1.5 (0.5-2.2) mmol/L Calcium Cancelled Troponin I < 0.03 (< 0.04) ng/mL B-Natriuretic Peptide (Less than 100) pg/mL Specimen Rejected 04/25/18 04/25/18 04/25/18 Range/Units 16:29 16:29 17:56 WBC (4.3-11.1) K/mcL RBC (4.19-5.50) M/mcL Hgb (12.9-16.9) g/dL Hct (37.5-50.1) % MCV (83.0-100.0) fL MCH (28.0-33.3) pg MCHC (31.6-35.5) g/dL RDW (11.5-14.5) % Plt Count (140-400) K/mcL MPV (9.4-12.4) fL Immature Gran % (0-4) % Seg Neutrophils % % Lymphocytes % % Monocytes % % Eosinophils % % Basophils % % Neutrophils # (1.6-8.9) K/mcL Lymphocytes # (0.6-4.6) K/mcL Monocytes # (0.0-1.3) K/mcL Eosinophils # (0.0-0.6) K/mcL Basophils # (0.0-0.2) K/mcL Sodium 137 Potassium 3.7 Chloride 97 L Carbon Dioxide 32 H BUN 17 Creatinine 0.50 L Est GFR ( Amer) > 60 Est GFR (Non-Af Amer) > 60 BUN/Creatinine Ratio 34 H Glucose 115 H Calculated Osmolality 286 Lactic Acid (0.5-2.2) mmol/L Calcium 8.9 Troponin I (< 0.04) ng/mL B-Natriuretic Peptide 36 (Less than 100) pg/mL Specimen Rejected Hemolyzed Attestation Statement - Attestation Attestation: I examined this patient and my medical decision-making was reviewed with the Resident Physician. I agree with the documented findings, disposition and treatment plan as described except to the extent set forth below. Patient to the ED with a chief complaint shortness of breath. Patient has a long-standing history of COPD. Was just discharged from the hospital. Patient states is been using his BiPAP more frequently. Still on 4 L of oxygen. He is uses nebulizer twice a day with minimal relief. On exam he does not appear in any distress other than some mild tachypnea. Lungs coarse and diminished anteriorly. Wheezing in the bases. Plan. Nebs steroids. Cardiac workup and reevaluate. X-ray shows improved opacities. Patient still significantly dyspneic. We will admit. Admitted to medicine. Chest X-Ray 04/25/18 15:02 IMPRESSION: Slight interval improvement of bibasilar opacities. No new acute cardiopulmonary findings. D/ / Katherin Mejias MD / Katherin Mejias MD Interpreting Provider: Katherin Mejias MD
--- NOTE | 2018-04-25 15:08 | Emergency Department Note ---
Disposition Clinical Impression: COPD with exacerbation, Acute exacerbation of chronic obstructive airways disease Leukocytosis Qualifiers: Leukocytosis type: unspecified Qualified Code(s): D72.829 - Elevated white blood cell count, unspecified Disposition: Admitted As Inpatient Condition: Fair Referrals: Nilson Campa [Primary Care Provider] - Forms: ED Satisfaction Letter General Adult HPI - General Chief complaint: ED Shortness of Breath/Dyspnea Stated complaint: PHYLLIS Time Seen by Provider: 04/25/18 14:43 Source: patient Limitations: no limitations - History of Present Illness HPI Narrative: Patient is a 58 year old male with PMH of COPD on 4L O2 at home, HTN and pulmonary embolism on Xarelto who presents with chief complaint of shortness of breath. Patient was recently admitted for LLL pneumonia and discharged home with antibiotics and breathing treatments. Patient reports that he has had worsening shortness of breath since he was discharged. Patient took two nebulizer breathing treatments today with minimal relief. Patient admits to associated chest tightness radiating into his neck that is exacerbated by his shortness of breath. Patient says he has dry cough. Patient denies nausea, diaphoresis, abdominal pain, fever, chills, diarrhea, urinary symptoms. Pain Scale: 8 - Related Data Home Medications Medication Instructions Recorded Confirmed Oxygen 4 l NS CONT 07/25/17 04/11/18 Roflumilast [Daliresp] 500 mcg PO DAILY 07/25/17 04/11/18 Omeprazole [PriLOSEC] 20 mg PO 0730 09/30/17 04/11/18 Gabapentin [Neurontin] 300 mg PO TID 12/31/17 04/11/18 Rivaroxaban [Xarelto] 20 mg PO DAILY@1700 03/06/18 04/11/18 Fluticasone/Salmeterol [Advair Hfa 2 puff IH BID 04/11/18 04/11/18 115-21 Mcg Inhaler] Ipratropium/Albuterol Sulfate 1 vial IH Q4H PRN 04/11/18 04/11/18 [Iprat-Albut 0.5-3(2.5) mg/3 ml] Previous Rx's Medication Instructions Recorded Furosemide [Lasix] 40 mg PO TID #90 tab 09/20/17 Loratadine [Claritin] 10 mg PO DAILY #30 tablet 11/09/17 Albuterol Sulfate [Albuterol 2 puff IH Q4H PRN #1 inhaler 01/17/18 Inhaler] GuaiFENesin ER [Mucinex] 600 mg PO BID #30 tbbp.12hr 03/22/18 Potassium Chloride 20 meq PO DAILY #30 tab.er.prt 04/11/18 Minocycline [Minocin] 100 mg PO Q12HR 14 Days #28 capsule 04/23/18 Sennosides/Docusate Sodium [Senna 2 each PO BID 30 Days #60 tablet 04/23/18 Plus] predniSONE [PredniSONE] 40 mg PO DAILY 7 Days #7 tablet 04/23/18 predniSONE [Prednisone] 50 mg PO DAILY 7 Days #7 tablet 04/23/18 Allergies Allergy/AdvReac Type Severity Reaction Status Date / Time levofloxacin AdvReac Blurry Verified 04/25/18 14:40 [facility] Constitutional: Denies: fever, chills Eyes: Denies: vision change ENT ED: Denies: throat pain, congestion Cardiovascular: Reports: chest pain, dyspnea on exertion. Denies: palpitations, syncope Respiratory: Reports: cough, dyspnea, wheezes. Denies: hemoptysis Gastrointestinal: Denies: abdominal pain, nausea, vomiting, diarrhea Genitourinary: Denies: dysuria, hematuria Musculoskeletal: Denies: back pain, neck pain Integumentary: Denies: rash Neurological: Denies: headache, weakness, numbness Past Medical History - Past Medical History Medical history: Reports: CHF, COPD, hyperlipidemia, hypertension, pulmonary embolus Surgical history: Reports: no surgical history Psychiatric history: Reports: anxiety, depression - Social History Smoking Status: Former smoker Smokeless Tobacco Status: No Alcohol use: Reports: none Drug use: Reports: none Physical Exam - General Limitations: no limitations General appearance: alert, in no apparent distress - Head Head exam: atraumatic, normocephalic, normal inspection - Eye Eye exam: Present: normal appearance, PERRL, EOMI - ENT ENT exam: normal exam, normal oropharynx, mucous membranes moist - Neck Neck exam: Present: normal inspection, full ROM, trachea midline. Absent: tenderness - Chest Chest inspection: Present: normal inspection, symmetric chest wall rise - Respiratory Respiratory exam: Present: wheezes (wheezes throughout, diminished breath sounds bilaterally). Absent: respiratory distress - Cardiovascular Cardiovascular exam: Present: regular rate, normal rhythm, normal heart sounds - Abdominal Exam Abdominal exam: Present: soft, Non-Tender, hernia (umbilical, reproducible). Absent: distention, guarding, rebound, rigidity - Extremities Exam Extremities exam: Present: normal inspection, full ROM, normal capillary refill. Absent: tenderness, pedal edema - Back Exam Back exam: Present: normal inspection, full ROM. Absent: tenderness, CVA tenderness (R), CVA tenderness (L) - Neurological Exam Neurological exam: Present: alert, oriented X3 - Psychiatric Psychiatric exam: Present: normal affect, normal mood - Skin Skin exam: Present: warm, dry, intact, normal color Course Vital Signs Temperature 97.9 F 04/25/18 14:40 Pulse Rate 136 04/25/18 14:40 Respiratory Rate 26 04/25/18 14:40 Blood Pressure 134/83 04/25/18 14:40 O2 Sat by Pulse Oximetry 92 04/25/18 14:40 Temperature 97.9 F 04/25/18 14:51 Pulse Rate 95 04/25/18 18:38 Respiratory Rate 20 04/25/18 18:38 Blood Pressure 119/75 04/25/18 18:38 O2 Sat by Pulse Oximetry 100 04/25/18 18:38 Oxygen Delivery Oxygen Delivery Nasal Cannula Medical Decision Making - Lab Data Result diagrams: 04/25/18 16:29 04/25/18 17:56 Lab Results 04/25/18 04/25/18 04/25/18 Range/Units 16:29 16:29 16:29 WBC 11.6 H D (4.3-11.1) K/mcL RBC 5.15 (4.19-5.50) M/mcL Hgb 13.6 D (12.9-16.9) g/dL Hct 44.3 (37.5-50.1) % MCV 86.0 (83.0-100.0) fL MCH 26.4 L (28.0-33.3) pg MCHC 30.7 L (31.6-35.5) g/dL RDW 15.9 H (11.5-14.5) % Plt Count 368 (140-400) K/mcL MPV 9.6 (9.4-12.4) fL Immature Gran % 0.4 (0-4) % Seg Neutrophils % 72.2 % Lymphocytes % 21.6 % Monocytes % 4.5 % Eosinophils % 1.1 % Basophils % 0.2 % Neutrophils # 8.4 (1.6-8.9) K/mcL Lymphocytes # 2.5 (0.6-4.6) K/mcL Monocytes # 0.5 (0.0-1.3) K/mcL Eosinophils # 0.1 (0.0-0.6) K/mcL Basophils # 0.0 (0.0-0.2) K/mcL Sodium Cancelled Potassium Cancelled Chloride Cancelled Carbon Dioxide Cancelled BUN Cancelled Creatinine Cancelled Est GFR ( Amer) Cancelled Est GFR (Non-Af Amer) Cancelled BUN/Creatinine Ratio Cancelled Glucose Cancelled Calculated Osmolality Cancelled Lactic Acid 1.5 (0.5-2.2) mmol/L Calcium Cancelled Troponin I < 0.03 (< 0.04) ng/mL B-Natriuretic Peptide (Less than 100) pg/mL Specimen Rejected 04/25/18 04/25/18 04/25/18 Range/Units 16:29 16:29 17:56 WBC (4.3-11.1) K/mcL RBC (4.19-5.50) M/mcL Hgb (12.9-16.9) g/dL Hct (37.5-50.1) % MCV (83.0-100.0) fL MCH (28.0-33.3) pg MCHC (31.6-35.5) g/dL RDW (11.5-14.5) % Plt Count (140-400) K/mcL MPV (9.4-12.4) fL Immature Gran % (0-4) % Seg Neutrophils % % Lymphocytes % % Monocytes % % Eosinophils % % Basophils % % Neutrophils # (1.6-8.9) K/mcL Lymphocytes # (0.6-4.6) K/mcL Monocytes # (0.0-1.3) K/mcL Eosinophils # (0.0-0.6) K/mcL Basophils # (0.0-0.2) K/mcL Sodium 137 Potassium 3.7 Chloride 97 L Carbon Dioxide 32 H BUN 17 Creatinine 0.50 L Est GFR ( Amer) > 60 Est GFR (Non-Af Amer) > 60 BUN/Creatinine Ratio 34 H Glucose 115 H Calculated Osmolality 286 Lactic Acid (0.5-2.2) mmol/L Calcium 8.9 Troponin I (< 0.04) ng/mL B-Natriuretic Peptide 36 (Less than 100) pg/mL Specimen Rejected Hemolyzed
--- NOTE | 2018-04-25 15:08 | Emergency Department Note ---
Disposition Clinical Impression: Acute exacerbation of chronic obstructive airways disease Leukocytosis Qualifiers: Leukocytosis type: unspecified Qualified Code(s): D72.829 - Elevated white blood cell count, unspecified Disposition: Admitted As Inpatient Condition: Fair Referrals: Nilson Campa [Primary Care Provider] - Forms: ED Satisfaction Letter Time of Disposition: 18:54 General Adult HPI - General Chief complaint: ED Shortness of Breath/Dyspnea Stated complaint: PHYLLIS Time Seen by Provider: 04/25/18 14:43 Source: patient Mode of arrival: ambulatory Limitations: no limitations Nursing Notes Reviewed: Yes Vital Signs Reviewed: Yes - History of Present Illness HPI Narrative: Patient is a 58-year-old male that presents the emergency department for increased work of breathing and shortness of breath. Patient states this is been ongoing for an extended period of time however he was just discharged from the hospital yesterday and is returning for similar symptoms. Patient states that he has been using 4 L nasal cannula oxygen at home which she uses at baseline as well as requiring increased use of his BiPAP machine. Patient states that he has been coughing and feeling like he is having a more difficult time breathing. Patient states that he has been taking antibiotics. Patient states that he has used his nebulized breathing treatments twice today and has had minimal relief. Pain Scale: 8 - Related Data Home Medications Medication Instructions Recorded Confirmed Oxygen 4 l NS CONT 07/25/17 04/11/18 Roflumilast [Daliresp] 500 mcg PO DAILY 07/25/17 04/11/18 Omeprazole [PriLOSEC] 20 mg PO 0730 09/30/17 04/11/18 Gabapentin [Neurontin] 300 mg PO TID 12/31/17 04/11/18 Rivaroxaban [Xarelto] 20 mg PO DAILY@1700 03/06/18 04/11/18 Fluticasone/Salmeterol [Advair Hfa 2 puff IH BID 04/11/18 04/11/18 115-21 Mcg Inhaler] Ipratropium/Albuterol Sulfate 1 vial IH Q4H PRN 04/11/18 04/11/18 [Iprat-Albut 0.5-3(2.5) mg/3 ml] Previous Rx's Medication Instructions Recorded Furosemide [Lasix] 40 mg PO TID #90 tab 09/20/17 Loratadine [Claritin] 10 mg PO DAILY #30 tablet 11/09/17 Albuterol Sulfate [Albuterol 2 puff IH Q4H PRN #1 inhaler 01/17/18 Inhaler] GuaiFENesin ER [Mucinex] 600 mg PO BID #30 tbbp.12hr 03/22/18 Potassium Chloride 20 meq PO DAILY #30 tab.er.prt 04/11/18 Minocycline [Minocin] 100 mg PO Q12HR 14 Days #28 capsule 04/23/18 Sennosides/Docusate Sodium [Senna 2 each PO BID 30 Days #60 tablet 04/23/18 Plus] predniSONE [PredniSONE] 40 mg PO DAILY 7 Days #7 tablet 04/23/18 predniSONE [Prednisone] 50 mg PO DAILY 7 Days #7 tablet 04/23/18 Allergies Allergy/AdvReac Type Severity Reaction Status Date / Time levofloxacin AdvReac Blurry Verified 04/25/18 14:40 [facility] ED: reviewed and negative except as stated. Constitutional: Denies: fever Cardiovascular: Denies: chest pain Respiratory: Reports: cough, dyspnea Gastrointestinal: Denies: abdominal pain, nausea, vomiting Past Medical History - Past Medical History Medical history: Reports: CHF, COPD, hyperlipidemia, hypertension, pulmonary embolus Surgical history: Reports: no surgical history Psychiatric history: Reports: anxiety, depression - Social History Smoking Status: Former smoker Smokeless Tobacco Status: No Alcohol use: Reports: none Drug use: Reports: none Physical Exam - General Limitations: no limitations General appearance: alert, in no apparent distress - Head Head exam: atraumatic, normocephalic - Eye Eye exam: Present: normal appearance, EOMI - Neck Neck exam: Present: normal inspection, full ROM, trachea midline - Respiratory Respiratory exam: Present: wheezes (Bilaterally posteriorly.) - Cardiovascular Cardiovascular exam: Present: normal rhythm, tachycardia, normal heart sounds, +S1, +S2 - Abdominal Exam Abdominal exam: Present: soft, Non-Tender, normal bowel sounds, other (Umbilical hernia. Hernia is reducible. No evidence of incarceration or strangulation.) - Neurological Exam Neurological exam: Present: alert, oriented X3 - Psychiatric Psychiatric exam: Present: normal affect, normal mood - Skin Skin exam: Present: warm, dry, intact Course Vital Signs Temperature 97.9 F 04/25/18 14:40 Pulse Rate 136 04/25/18 14:40 Respiratory Rate 26 04/25/18 14:40 Blood Pressure 134/83 04/25/18 14:40 O2 Sat by Pulse Oximetry 92 04/25/18 14:40 Temperature 97.9 F 04/25/18 14:51 Pulse Rate 95 04/25/18 18:38 Respiratory Rate 20 04/25/18 18:38 Blood Pressure 119/75 04/25/18 18:38 O2 Sat by Pulse Oximetry 100 04/25/18 18:38 Oxygen Delivery Oxygen Delivery Nasal Cannula Medical Decision Making - [facility] Narrative Medical decision making narrative: Due the patient presents emergency department with increased work of breathing and feeling short of breath we will obtain basic laboratory testing as well as chest x-ray and EKG. Patient be provided with breathing treatment and steroids here in the emergency department. Disposition will be pending workup. Patient's laboratory testing did show a mild leukocytosis. Patient spent a kidney can tachycardic. Patient has had some resolution of his bibasilar opacities. Feel this is likely a COPD exacerbation. Patient has be given ster oids and a breathing treatment here in the emergency department. Patient has been on his baseline of 4 L however he has had increased work of breathing has been tachypnea. Patient need to be admitted to the hospital for further evaluation and management. Patient is allergic to Levaquin to be given a dose of doxycycline here in the emergency department. I called spoke the admitting hospitals and he is except the patient to their service. Patient be admitted to the hospital this time for further evaluation and management. - Medical Records Medical records reviewed: Yes I reviewed the patient's medical records. - Lab Data Lab results reviewed: Yes I reviewed the patient's lab results. Result diagrams: 04/25/18 16:29 04/25/18 17:56 Lab Results 04/25/18 04/25/18 04/25/18 Range/Units 16:29 16:29 16:29 WBC 11.6 H D (4.3-11.1) K/mcL RBC 5.15 (4.19-5.50) M/mcL Hgb 13.6 D (12.9-16.9) g/dL Hct 44.3 (37.5-50.1) % MCV 86.0 (83.0-100.0) fL MCH 26.4 L (28.0-33.3) pg MCHC 30.7 L (31.6-35.5) g/dL RDW 15.9 H (11.5-14.5) % Plt Count 368 (140-400) K/mcL MPV 9.6 (9.4-12.4) fL Immature Gran % 0.4 (0-4) % Seg Neutrophils % 72.2 % Lymphocytes % 21.6 % Monocytes % 4.5 % Eosinophils % 1.1 % Basophils % 0.2 % Neutrophils # 8.4 (1.6-8.9) K/mcL Lymphocytes # 2.5 (0.6-4.6) K/mcL Monocytes # 0.5 (0.0-1.3) K/mcL Eosinophils # 0.1 (0.0-0.6) K/mcL Basophils # 0.0 (0.0-0.2) K/mcL Sodium Cancelled Potassium Cancelled Chloride Cancelled Carbon Dioxide Cancelled BUN Cancelled Creatinine Cancelled Est GFR ( Amer) Cancelled Est GFR (Non-Af Amer) Cancelled BUN/Creatinine Ratio Cancelled Glucose Cancelled Calculated Osmolality Cancelled Lactic Acid 1.5 (0.5-2.2) mmol/L Calcium Cancelled Troponin I < 0.03 (< 0.04) ng/mL B-Natriuretic Peptide (Less than 100) pg/mL Specimen Rejected 04/25/18 04/25/18 04/25/18 Range/Units 16:29 16:29 17:56 WBC (4.3-11.1) K/mcL RBC (4.19-5.50) M/mcL Hgb (12.9-16.9) g/dL Hct (37.5-50.1) % MCV (83.0-100.0) fL MCH (28.0-33.3) pg MCHC (31.6-35.5) g/dL RDW (11.5-14.5) % Plt Count (140-400) K/mcL MPV (9.4-12.4) fL Immature Gran % (0-4) % Seg Neutrophils % % Lymphocytes % % Monocytes % % Eosinophils % % Basophils % % Neutrophils # (1.6-8.9) K/mcL Lymphocytes # (0.6-4.6) K/mcL Monocytes # (0.0-1.3) K/mcL Eosinophils # (0.0-0.6) K/mcL Basophils # (0.0-0.2) K/mcL Sodium 137 Potassium 3.7 Chloride 97 L Carbon Dioxide 32 H BUN 17 Creatinine 0.50 L Est GFR ( Amer) > 60 Est GFR (Non-Af Amer) > 60 BUN/Creatinine Ratio 34 H Glucose 115 H Calculated Osmolality 286 Lactic Acid (0.5-2.2) mmol/L Calcium 8.9 Troponin I (< 0.04) ng/mL B-Natriuretic Peptide 36 (Less than 100) pg/mL Specimen Rejected Hemolyzed - Radiology Data Radiology results reviewed: Yes I reviewed the patient's radiology results. Chest X-Ray 04/25/18 15:02 IMPRESSION: Slight interval improvement of bibasilar opacities. No new acute cardiopulmonary findings. D/ / Katherin Mejias MD / Katherin Mejias MD Interpreting Provider: Katherin Mejias MD - EKG Data EKG #1 EKG attestation: Yes I reviewed and interpreted this EKG. EKG results narrative: EKG shows sinus tachycardia at a rate of 112 beats from it, [place] interval of 169, QRS duration 92, QTC of 447. There is no evidence of STEMI on EKG. This compared to previous EKG from 04/11/18. Showed a sinus tachycardia at a rate of 160 bpm.
[2018-04-25 16:40] LABS: Basophils % 0.2 %; Eosinophils # 0.1 K/mcL (0.0-0.6); Eosinophils % 1.1 %; Hematocrit 44.3 % (37.5-50.1); Hemoglobin 13.6 g/dL (12.9-16.9); Immature Granulocytes % 0.4 % (0-4); Lymphocytes # 2.5 K/mcL (0.6-4.6); Lymphocytes % 21.6 %; Mean Corpuscular HGB Conc 30.7 g/dL (31.6-35.5); Mean Corpuscular Hemoglobin 26.4 pg (28.0-33.3); Mean Platelet Volume 9.6 fL (9.4-12.4); Monocytes # 0.5 K/mcL (0.0-1.3); Monocytes % 4.5 %; Neutrophils # 8.4 K/mcL (1.6-8.9); Platelet Count 368 K/mcL (140-400); Red Blood Count 5.15 M/mcL (4.19-5.50); Red Cell Distribution Width 15.9 % (11.5-14.5); Segmented Neutrophils % 72.2 %
[2018-04-25] MEDS ORDERED: 0.9 % Sodium Chloride 1,000 ML IVC ONE (17:31)
[2018-04-25 18:28] LABS: BUN/Creatinine Ratio 34 (6-26); Blood Urea Nitrogen 17 mg/dL (6-20); Calcium 8.9 mg/dL (8.6-10.3); Carbon Dioxide 32 mEq/L (23-29); Chloride 97 mEq/L (98-107); Glucose 115 mg/dL (70-105); Osmolality,Calculated 286 (280-300); Potassium 3.7 mEq/L (3.5-5.1); Sodium 137 mEq/L (136-145); eGFR For Non-African Americans > 60 (> 60)
[2018-04-25] MEDS ORDERED: Doxycycline 100 MG in 0.9 % Sodium Chloride Mini Bag 100 ML IVPB ONE (18:50)
[2018-04-25] MEDS ORDERED: Naloxone 0.4 MG/ML INJ IVP PRN (19:33)
[2018-04-25] MEDS ORDERED: *HR* Dextrose 50 % in Water (Syg) 50 ML SYRINGE IVP PRN (19:43)
[2018-04-25] MEDS ORDERED: D5% in Water 1,000 ML IVC PRN (19:43)
[2018-04-25] MEDS ORDERED: Dextrose Gel 15 GM/37.5 ML TUBE PO PRN ×2 (19:43)
--- NOTE | 2018-04-25 19:47 | Internal Med History&Physical ---
Date of Encounter: 04/25/18 Time of Encounter: 19:47 Internal Medicine - H&P: HPI Chief complaint: SOB History of present illness: Mr. Blanchard is a 58 year old male with a past medical history of chronic hypoxic respiratory failure on 4 L home oxygen, CHF with preserved ejection fraction, COPD, hypertension, hyperlipidemia and history of PE on anticoagulation who presents to the ED due to shortness of breath. Patient was recently discharged on 04/23 for treatment of acute on chronic respiratory failure likely secondary to pneumonia. Sputum cultures found to be positive for Stenotrophomonas with sensitivity to minocycline which he was discharged on to complete a 14 day course. Patient states that since he went home he has been having worsening shortness of breath, particularly with exertion. He states that getting up and walking to the bathroom causes him to feel short of breath. He also endorses orthopnea, stating that he has to sleep upright at an angle. When he checked his heart rate with activity he says that it shoots up into the 140s to 150s. Denies any fever or chills or worsening productive cough. Denies chest pain, nausea, vomiting or diarrhea. He reports feeling like his neck, face and body are swelling up. He has been using his BiPAP more frequently at home. Still remains on 4 L of oxygen. During her initial assessment patient saturating at 92% on 4 L. He was afebrile and hemodynamically stable. Initial laboratory workup notable for mild leukocytosis of 11.6. Normal lactic acid, BNP and troponin. A chest x-ray was performed which showed interval improvement of bibasilar opacities. Patient received fluid bolus in the ED as well as breathing treatments. Past Med Surg Social Fam HX - Past Medical History Medical history: CHF, COPD, hyperlipidemia, hypertension, pulmonary embolus Additional medical history: umbilical hernia Psychiatric history: anxiety, depression - Past Surgical History Surgical History: no surgical history - Social History Smoking Status: Former smoker Smokeless Tobacco Status: No Alcohol use: none Drug use: none - Family History Father Living Status: Hx Family Cancer: Yes (colon) Mother Living Status: Hx Family Cancer: Yes Internal Medicine - H&P: Meds Oxygen 4 l NS CONT 07/25/17 [History] Roflumilast [Daliresp] 500 mcg PO DAILY 07/25/17 [History] Omeprazole [PriLOSEC] 20 mg PO 0730 09/30/17 [History] Loratadine [Claritin] 10 mg PO DAILY #30 tablet 11/09/17 [Rx] Gabapentin [Neurontin] 300 mg PO TID 12/31/17 [History] Albuterol Sulfate [Albuterol Inhaler] 2 puff IH Q4H PRN #1 inhaler 01/17/18 [Rx] Rivaroxaban [Xarelto] 20 mg PO DAILY@1700 03/06/18 [History] Fluticasone/Salmeterol [Advair Hfa 115-21 Mcg Inhaler] 2 puff IH BID 04/11/18 [History] Ipratropium/Albuterol Sulfate [Iprat-Albut 0.5-3(2.5) mg/3 ml] 1 vial IH Q4H PRN 04/11/18 [History] Potassium Chloride 20 meq PO DAILY #30 tab.er.prt 04/11/18 [Rx] Minocycline [Minocin] 100 mg PO Q12HR 14 Days #28 capsule 04/23/18 [Rx] Sennosides/Docusate Sodium [Senna Plus] 2 each PO BID 30 Days #60 tablet 04/23/18 [Rx] Furosemide [Lasix] 20 mg PO DAILY 04/25/18 [History] Mometasone/Formoterol [Dulera 100 Mcg/5 Mcg Inhaler] 2 puff IH BID 04/25/18 [History] predniSONE [Prednisone] 50 mg PO DAILY 04/25/18 [History] Allergy/AdvReac Type Severity Reaction Status Date / Time levofloxacin AdvReac Blurry Verified 04/25/18 14:40 [facility] PM: A 10-system review of systems was performed and is negative for pertinent findings except as documented above in the HPI. - Constitutional Constitutional: no chills, no fever(s), no night sweats - EENT Eyes: no change in vision, no discharge, no pain, no photophobia Ears: no ear discharge, no ear pain, no tinnitus Nose, mouth and throat: no dysphagia, no nasal discharge, no neck pain, no sore throat - Cardiovascular Cardiovascular ROS IM: no chest pain, no diaphoresis, no dyspnea, no lightheadedness, no palpitations, no syncope - Respiratory Respiratory: no cough, no dyspnea, no wheezing, no excessive phlegm production - Gastrointestinal Gastrointestinal: no abdominal pain, no diarrhea, no hematemesis, no hematochezia, no melena, no nausea, no vomiting - Musculoskeletal Musculoskeletal ROS IM: no numbness, no tingling - Integumentary Integumentary IM: no rash, no unusual bruising - Neurological Neurological ROS: no confusion, no convulsions, no focal weakness, no numbness, no tingling, no tremor(s) - Hematologic/Lymphatic Hematologic/Lymphatic: no easy bruising - Constitutional Vitals: Temp Pulse Resp BP Pulse Ox 97.9 F 95 20 119/75 100 04/25/18 14:51 04/25/18 18:38 04/25/18 18:38 04/25/18 18:38 04/25/18 18:38 Exam: General: Alert and oriented 3 lying in bed on BiPAP Skin: Patient has numerous lesions on both feet that are round, erythematous with central clearing. HEENT:EOM, pupils equal, round and reactive. Cardiovascular:Normal S1 & S2, no rubs, murmurs or gallops. No JVD. Pulse regular. Lungs: Lung sounds were rhonchorous bilaterally with expiratory wheezing Abdomen:Soft, non-tender, no rigidity. Extremities:No deformity, no edema or tenderness, no joint swelling or clubbing. Neurological:Normal cognition and motor skills. Pulses:Carotid and radial pulses normal +2. Rest of the physical exam is non contributory Internal Med - H&P Results - Labs CBC & Chem 7: 04/26/18 04:00 04/26/18 04:00 Labs: Short CBC 04/25/18 Range/Units 16:29 WBC 11.6 H D (4.3-11.1) K/mcL Hgb 13.6 D (12.9-16.9) g/dL Hct 44.3 (37.5-50.1) % Plt Count 368 (140-400) K/mcL Neutrophils # 8.4 (1.6-8.9) K/mcL BMP 04/25/18 04/25/18 16:29 17:56 Sodium Cancelled 137 Potassium Cancelled 3.7 Chloride Cancelled 97 L Carbon Dioxide Cancelled 32 H BUN Cancelled 17 Creatinine Cancelled 0.50 L Glucose Cancelled 115 H Calcium Cancelled 8.9 Cardiac Enzymes 04/25/18 Range/Units 16:29 Troponin I < 0.03 (< 0.04) ng/mL - Impressions ITS Impressions Chest X-Ray 04/25/18 15:02 IMPRESSION: Slight interval improvement of bibasilar opacities. No new acute cardiopulmonary findings. D/ / Katherin Mejias MD / Katherin Mejias MD Interpreting Provider: Katherin Mejias MD - Assessment and plan (1) COPD with exacerbation Current Visit: No Status: Acute Assessment and plan: Patient presents with productive cough at baseline with expiratory wheezing noted in the ED. Patient seemed to respond to breathing treatments in the emergency room. Suspect patient has a component of re-exacerbation of patient's of COPD. -Continue duo nebs -Steroids -Patient is currently completing home course of minocycline. He received doxycycline here in the ED. Would recommend that he continue in a minocycline due to previous susceptibility to previous infection. (2) Diastolic CHF Current Visit: No Status: Acute Assessment and plan: Patient's history suggestive of heart failure given his worsening dyspnea on exertion and orthopnea; patient has no significant lower extremity edema; and his x-ray does not look congested. I suspect he may have a mild CHF ex acerbation; patient has been on prolonged treatment with steroids. I suspect this may be contributing to his fluid retention. -We will give patient 1 dose of Lasix IV push. Monitor daily weight I's and O's Qualifiers: Heart failure chronicity: acute on chronic Qualified Code(s): I50.33 - Acute on chronic diastolic (congestive) heart failure (3) Tinea versicolor Current Visit: Yes Status: Acute Assessment and plan: Patient has numerous round erythematous lesions with central clearing suggestive of fungal infection. -We will treat with topical ketoconazole. (4) Pulmonary embolism Current Visit: No Status: Chronic Assessment and plan: Continue with anticoagulation Qualifiers: Pulmonary embolism type: other Chronicity: unspecified Acute cor pulmonale presence: without acute cor pulmonale Qualified Code(s): I26.99 - Other pulmonary embolism without acute cor pulmonale (5) DVT prophylaxis Current Visit: No Status: Acute - Time Spent With Patient Total time spent is greater than 50% in coordination of care (as documented) at patient's floor/unit and/or counseling patient:
[2018-04-25] MEDS ORDERED: Insulin LISPRO 300 UNITS/3 ML VIAL SQ SCH (20:00)
[2018-04-25] MEDS: Ipratropium/Albuterol Neb 3 ML IH SCH (22:58)
[2018-04-26] MEDS: MethylPREDNISolone 40 MG/ML VIAL IVP SCH ×4 (00:27→17:50)
[2018-04-26] MEDS ORDERED: NON-FORMULARY MEDICATION 1 EACH EACH (Oxygen [Oxygen] 4 L) NS SCH (02:30)
[2018-04-26] MEDS ORDERED: Furosemide 40 MG/4 ML VIAL IVP ONE (02:42)
[2018-04-26] MEDS: Ketoconazole 2% CRM 15 GM TUBE TP SCH ×3 (03:43→20:20)
[2018-04-26] MEDS: Ipratropium/Albuterol Neb 3 ML IH SCH ×4 (04:04→22:07)
[2018-04-26 04:53] LABS: Hematocrit 38.5 % (37.5-50.1); Hemoglobin 12.2 g/dL (12.9-16.9); Immature Granulocytes % 0.7 % (0-4); Lymphocytes # 0.9 K/mcL (0.6-4.6); Lymphocytes % 12.8 %; Mean Corpuscular HGB Conc 31.7 g/dL (31.6-35.5); Mean Corpuscular Hemoglobin 26.5 pg (28.0-33.3); Mean Corpuscular Volume 83.7 fL (83.0-100.0); Mean Platelet Volume 9.7 fL (9.4-12.4); Monocytes % 0.6 %; Neutrophils # 5.8 K/mcL (1.6-8.9); Platelet Count 401 K/mcL (140-400); Red Cell Distribution Width 15.7 % (11.5-14.5); Segmented Neutrophils % 85.9 %
[2018-04-26 06:39] LABS: Alanine Aminotransferase 25 Units/L (7-52); Albumin/Globulin Ratio 1.5 (1.1-2.2); Alkaline Phosphatase 63 Units/L (34-104); Aspartate Amino Transferase 14 Units/L (13-39); BUN/Creatinine Ratio 34 (6-26); Bilirubin,Total 0.3 mg/dL (0.3-1.0); Blood Urea Nitrogen 20 mg/dL (6-20); Calcium 9.3 mg/dL (8.6-10.3); Carbon Dioxide 30 mEq/L (23-29); Chloride 94 mEq/L (98-107); Globulin 2.7 g/dL (2.4-3.5); Glucose 157 mg/dL (70-105); Osmolality,Calculated 284 (280-300); Sodium 134 mEq/L (136-145); Total Protein 6.7 g/dL (6.4-8.9); eGFR For Non-African Americans > 60 (> 60)
[2018-04-26] MEDS: Furosemide 20 MG TABLET PO SCH (08:16)
[2018-04-26] MEDS: Gabapentin 300 MG CAPSULE PO SCH ×3 (08:17→20:19)
[2018-04-26] MEDS: Sennosides/Docusate Sodium TABLET PO SCH ×2 (08:17→20:19)
[2018-04-26] MEDS: Loratadine 10 MG TABLET PO SCH (08:17)
[2018-04-26 12:28] LABS: Adenovirus Not Detected (Not Detect); Bordetella Pertussis Not Detected (Not Detect); Chlamydophila pneumoniae Not Detected (Not Detect); Coronavirus 229E Not Detected (Not Detect); Coronavirus HKU1 Not Detected (Not Detect); Coronavirus NL63 Not Detected (Not Detect); Coronavirus OC43 Not Detected (Not Detect); Human Metapneumovirus Not Detected (Not Detect); Human Rhinovirus/Enterovirus Not Detected (Not Detect); Influenza A Subtype 2009 H1 Not Detected (Not Detect); Influenza A Untypeable Not Detected (Not Detect); Influenza B Not Detected (Not Detect); Mycoplasma pneumoniae Not Detected (Not Detect); Parainfluenza Virus 1 Not Detected (Not Detect); Parainfluenza Virus 2 Not Detected (Not Detect); Parainfluenza Virus 3 Not Detected (Not Detect); Parainfluenza Virus 4 Not Detected (Not Detect); Respiratory Syncytial Virus Not Detected (Not Detect)
--- NOTE | 2018-04-26 12:29 | Pulmonology Consult Note ---
Date of Encounter: 04/26/18 Time of Encounter: 12:27 Assessment and Plan (1) Acute exacerbation of chronic obstructive airways disease Current Visit: Yes Status: Acute Agree with systemic glucocorticoids agree with scheduled bronchodilators and Symbicort this is likely related to infectious process (2) Acute and chronic respiratory failure Current Visit: No Status: Acute Recommend continuation of BiPAP as needed for work of breathing during the day he will need to wear this at night and with naps for sleep-disordered breathing. Continue to wean FiO2 down to goal saturation around 92% he is in no evidence of impending respiratory failure at this time Qualifiers: Respiratory failure complication: hypoxia and hypercapnia Qualified C ode(s): J96.21 - Acute and chronic respiratory failure with hypoxia; J96.22 - Acute and chronic respiratory failure with hypercapnia (3) Pneumonia Current Visit: No Status: Acute Persistent pneumonia with history of stenotrophomonas infection. I feel that the stenotrophomonas is an industrial last time is likely the culprit infectious agents it is possible that this represented a colonizer but again I feel that this is more unlikely. Given that the patient has had multiple hospitalizations and respirations status and if it has failed to improve recommend proceeding with bronchoscopy to see if there is potentially another coinfection or if the stenotrophomonas was in fact just colonizer. At present would recommend continuation of minocycline I do not feel the patient needs broadened out from standpoint of antimicrobials could consider infectious disease consultation A bronchoscopy is recommended. The procedure , risks, benefits, complications, and expected outcomes have been reviewed. Benefits of diagnosis, as well as risks to include bleeding, infection, pneumothorax which may require surgical intervention, and in a small population. The patient is aware that sometimes test is nondiagnostic. Discussed with patient and agrees to proceed. Patient understands that his anticoagulation had to be interrupted this can be a slight increased risk of stroke and venous thromboembolism patient expressed understanding and agreement to proceed please keep nothing by mouth at midnight will hold her also now can get a dose of Lovenox for this evening and plan for bronchoscopy tomorrow Qualifiers: Pneumonia type: aspiration pneumonia Aspiration pneumonia type: unspecified Laterality: left Lung location: lower lobe of lung Qualified Code(s): J69.0 - Pneumonitis due to inhalation of food and vomit (4) Diastolic CHF Current Visit: No Status: Chronic This is likely contributing to shortness of breath and he will need to be maintained on diuretic Qualifiers: Heart failure chronicity: acute on chronic Qualified Code(s): I50.33 - Acute on chronic diastolic (congestive) heart failure (5) MYNOR (obstructive sleep apnea) Current Visit: No Status: Acute Continue BiPAP at night and with naps Thank you for this consultation pulmonary will continue to follow History of Present Illness Consult date: 04/26/18 Requesting physician: Benji Peña Reason for consult: pneumonia Chief complaint: Difficulty in breathing History of present illness: This is aa 58yo gentleman with past medical history of chronic hypoxic respiratory failure COPD former smoker now in remission also with a sleep disorder breathing and heart failure with preserved ejection fraction he returns to the hospital through the emergency department for increased shortness of breath was home less than 48 hours after last hospitalization when he felt like he "could not breathe" denies any chest pain or hemoptysis. He has a history of atrial fibrillation and previous pulmonary embolus and is on long-term anticoagulation for this without any interruption in dosing. Very complicated recent medical history including at least 3 hospitalizations for COPD exacerbation and pneumonia at last admission there was found stenotrophomonas which was multidrug resistant infectious disease was consulted and patient was discharged on a minocycline after extended spectrum microbiological sensitivity testing was undertaken. He is been discharged from the hospital and has returned on 3 separate occasions and less than 72 hours. When I spoke with him today he says his breathing about the same but he is able to sit in bed without BiPAP and is enjoying his lunch Past Med Surg Social Fam HX - Past Medical History Medical history: CHF, COPD, hyperlipidemia, hypertension, pulmonary embolus Additional medical history: umbilical hernia Psychiatric history: anxiety, depression - Past Surgical History Surgical History: no surgical history - Social History Smoking Status: Former smoker Smokeless Tobacco Status: No Alcohol use: none Drug use: none - Family History Father Name: Robert Blanchard Living Status: Cause of : Colon cancer Hx Family Cancer: Yes (colon) Mother Living Status: Hx Family Cancer: Yes Medications and Allergies Oxygen 4 l NS CONT 07/25/17 [History] Roflumilast [Daliresp] 500 mcg PO DAILY 07/25/17 [History] Omeprazole [PriLOSEC] 20 mg PO 0730 09/30/17 [History] Loratadine [Claritin] 10 mg PO DAILY #30 tablet 11/09/17 [Rx] Gabapentin [Neurontin] 300 mg PO TID 12/31/17 [History] Albuterol Sulfate [Albuterol Inhaler] 2 puff IH Q4H PRN #1 inhaler 01/17/18 [Rx] Rivaroxaban [Xarelto] 20 mg PO DAILY@1700 03/06/18 [History] Fluticasone/Salmeterol [Advair Hfa 115-21 Mcg Inhaler] 2 puff IH BID 04/11/18 [History] Ipratropium/Albuterol Sulfate [Iprat-Albut 0.5-3(2.5) mg/3 ml] 1 vial IH Q4H PRN 04/11/18 [History] Potassium Chloride 20 meq PO DAILY #30 tab.er.prt 04/11/18 [Rx] Minocycline [Minocin] 100 mg PO Q12HR 14 Days #28 capsule 04/23/18 [Rx] Sennosides/Docusate Sodium [Senna Plus] 2 each PO BID 30 Days #60 tablet 04/23/18 [Rx] Furosemide [Lasix] 20 mg PO DAILY 04/25/18 [History] Mometasone/Formoterol [Dulera 100 Mcg/5 Mcg Inhaler] 2 puff IH BID 04/25/18 [History] predniSONE [Prednisone] 50 mg PO DAILY 04/25/18 [History] Allergy/AdvReac Type Severity Reaction Status Date / Time levofloxacin AdvReac Blurry Verified 04/25/18 14:40 Vision All Systems: The remainder of the systems were reviewed and are negative Physical Examination Vital Signs: Vital Signs, Last 4 Hours Temp Pulse Resp BP Pulse Ox 04/26/18 11:53 98.3 F 77 18 119/77 94 General appearance: no acute distress Eyes: nonicteric ENT: oropharynx moist Neck: supple, no lymphadenopathy Effort: normal Auscultation: bilateral: diminished breath sounds, rhonchi Cardiovascular: irregular rhythm Gastrointestinal: normoactive bowel sounds, soft, non-tender Integumentary: normal Extremities: no cyanosis, no edema, no clubbing, pink and warm, pulses normal Musculoskeletal: no deformities normal mental status, non-focal exam mood appropriate Results - Laboratory Findings CBC and BMP: 04/26/18 04:00 04/26/18 04:00 Abnormal lab findings: Abnormal lab results Hgb 12.2 g/dL (12.9-16.9) L 04/26/18 04:00 MCH 26.5 pg (28.0-33.3) L 04/26/18 04:00 RDW 15.7 % (11.5-14.5) H 04/26/18 04:00 Plt Count 401 K/mcL (140-400) H 04/26/18 04:00 Sodium 134 mEq/L (136-145) L 04/26/18 04:00 Chloride 94 mEq/L (98-107) L 04/26/18 04:00 Carbon Dioxide 30 mEq/L (23-29) H 04/26/18 04:00 Creatinine 0.58 mg/dL (0.70-1.30) L 04/26/18 04:00 BUN/Creatinine Ratio 34 (6-26) H 04/26/18 04:00 Glucose 157 mg/dL (70-105) H 04/26/18 04:00 POC Glucose 155 mg/dL (70-99) H 04/25/18 23:58 - Diagnostic Findings Chest x-ray: report reviewed, image reviewed CT scan - chest: report reviewed, image reviewed - Clinical Findings Intake & Output: Intake & Output 04/25/18 04/26/18 04/26/18 23:59 07:59 15:59 Intake Total 1460 / 1460 600 / 600 360 / 360 Output Total 350 / 350 Balance 1460 / 1460 600 / 600 10 Weight 89.4 kg 89.4 kg Consult Discharge Plan - Plan Referrals: Nilson Campa [Primary Care Provider] -
--- NOTE | 2018-04-26 13:55 | Internal Med Progress Note ---
Hospitalist Progress Note - Encounter Date of Encounter: 04/26/18 Time of Encounter: 09:00 - Subjective Interval History: H&P reviewed. Patient with multiple admissions for COPD exacerbation with the most recent one last week when he was noted to have sputum culture +ve for stenotrophomonas. Was sent home on minocycline but returned to the ED [address] with unresolving SOB. CXR showed improving opacities but did have leukocytosis on presentation. Patient states that he feels about the same as yesterday and continues to require BiPaP support. No fever/chills. - Exam Vitals: Temp Pulse Resp BP Pulse Ox 98.3 F 77 18 119/77 94 04/26/18 11:53 04/26/18 11:53 04/26/18 11:53 04/26/18 11:53 04/26/18 11:53 Exam: General: Alert and oriented, mild respiratory distress on BiPaP Cardiovascular:Normal S1 & S2, No JVD. Pulse regular. Lungs: Bilateral rhonchi Abdomen:Soft, non-tender, no rigidity. Extremities:No deformity or swelling Skin:Normal color, no rash, no lesions. - Assessment and Plan (1) Acute and chronic respiratory failure Current Visit: No Status: Acute Assessment and Plan: frequent admissions for acute exacerbation of COPD, recently discharged on 04/23 on tapering steroid and minocycline for sputum culture +ve for Stenotrophomonas continue IV solumedrol, bronchodilators will resume home dose of minocycline, especially in the setting of improving opacities on CXR. Will consult ID if he clinically deteriorates further check RIP pulm consult for ?bronchoscopy (2) COPD with exacerbation Current Visit: Yes Status: Acute Assessment and Plan: as above (3) Pulmonary embolism Current Visit: No Status: Chronic Assessment and Plan: Continue with anticoagulation (4) Diastolic CHF Current Visit: No Status: Chronic Assessment and Plan: was given 1 dose of IV lasix yesterday, does not appear to be in significant volume overload resume home dose of PO lasix (5) Tinea versicolor Current Visit: Yes Status: Acute Assessment and Plan: continue topical ketoconazole (6) DVT prophylaxis Current Visit: No Status: Acute Assessment and Plan: anticoagulation as above - Time Spent with Patient Total time spent is greater than 50% in coordination of care (as documented) at patient's floor/unit and/or counseling patient: 36 mins Plan of Care Discussed with: patient (also discussed with pulmonary) Internal Medicine: Result - Labs CBC & Chem 7: 04/26/18 04:00 04/26/18 04:00 Labs: Short CBC 04/25/18 04/26/18 Range/Units 16:29 04:00 WBC 11.6 H D 6.7 (4.3-11.1) K/mcL Hgb 13.6 D 12.2 L (12.9-16.9) g/dL Hct 44.3 38.5 (37.5-50.1) % Plt Count 368 401 H (140-400) K/mcL Neutrophils # 8.4 5.8 (1.6-8.9) K/mcL BMP 04/25/18 04/25/18 04/26/18 16:29 17:56 04:00 Sodium Cancelled 137 134 L Potassium Cancelled 3.7 4.0 Chloride Cancelled 97 L 94 L Carbon Dioxide Cancelled 32 H 30 H BUN Cancelled 17 20 Creatinine Cancelled 0.50 L 0.58 L Glucose Cancelled 115 H 157 H Calcium Cancelled 8.9 9.3 Cardiac Enzymes 04/25/18 Range/Units 16:29 Troponin I < 0.03 (< 0.04) ng/mL Liver Function 04/26/18 Range/Units 04:00 Total Bilirubin 0.3 (0.3-1.0) mg/dL AST 14 (13-39) Units/L ALT 25 (7-52) Units/L Alkaline Phosphatase 63 (34-104) Units/L Albumin 4.0 (3.5-5.7) g/dL - Impressions Impressions Chest X-Ray 04/25/18 15:02 IMPRESSION: Slight interval improvement of bibasilar opacities. No new acute cardiopulmonary findings. D/ / Katherin Mejias MD / Katherin Mejias MD Interpreting Provider: Katherin Mejias MD Consult Discharge Plan - Plan Referrals: Nilson Campa [Primary Care Provider] - (1) Acute and chronic respiratory failure Qualifiers: Respiratory failure complication: hypoxia and hypercapnia Qualified Code(s): J96.21 - Acute and chronic respiratory failure with hypoxia; J96.22 - Acute and chronic respiratory failure with hypercapnia (3) Pulmonary embolism Qualifiers: Pulmonary embolism type: other Chronicity: unspecified Acute cor pulmonale presence: without acute cor pulmonale Qualified Code(s): I26.99 - Other pulmonary embolism without acute cor pulmonale (4) Diastolic CHF Qualifiers: Heart failure chronicity: acute on chronic Qualified Code(s): I50.33 - Acute on chronic diastolic (congestive) heart failure
--- NOTE | 2018-04-26 14:15 | Electrocardiograph Report ---
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
[2018-04-26] MEDS ORDERED: *HR* Enoxaparin 100 MG/ML SYRINGE SQ ONE (17:00)
[2018-04-26] MEDS ORDERED: *HR* Rivaroxaban 10 MG TABLET PO SCH (17:00)
[2018-04-27] MEDS: MethylPREDNISolone 40 MG/ML VIAL IVP SCH ×4 (01:00→17:51)
[2018-04-27] MEDS: Ipratropium/Albuterol Neb 3 ML IH SCH ×4 (04:07→22:18)
[2018-04-27 06:17] LABS: Hematocrit 33.9 % (37.5-50.1); Immature Granulocytes % 0.7 % (0-4); Lymphocytes # 0.5 K/mcL (0.6-4.6); Lymphocytes % 5.4 %; Mean Corpuscular HGB Conc 31.3 g/dL (31.6-35.5); Mean Corpuscular Hemoglobin 26.3 pg (28.0-33.3); Mean Corpuscular Volume 84.1 fL (83.0-100.0); Monocytes # 0.2 K/mcL (0.0-1.3); Monocytes % 1.8 %; Neutrophils # 7.9 K/mcL (1.6-8.9); Platelet Count 331 K/mcL (140-400); Red Blood Count 4.03 M/mcL (4.19-5.50); Red Cell Distribution Width 15.8 % (11.5-14.5); Segmented Neutrophils % 92.1 %
[2018-04-27 06:24] LABS: Prothrombin Time 11.5 Seconds (9.4-12.1)
[2018-04-27 06:28] LABS: Hemoglobin 10.6 g/dL (12.9-16.9)
[2018-04-27 06:47] LABS: BUN/Creatinine Ratio 45 (6-26); Blood Urea Nitrogen 23 mg/dL (6-20); Calcium 9.1 mg/dL (8.6-10.3); Carbon Dioxide 29 mEq/L (23-29); Chloride 99 mEq/L (98-107); Glucose 204 mg/dL (70-105); Osmolality,Calculated 290 (280-300); Potassium 4.2 mEq/L (3.5-5.1); Sodium 135 mEq/L (136-145); eGFR For Non-African Americans > 60 (> 60)
[2018-04-27] MEDS: Loratadine 10 MG TABLET PO SCH (09:08)
[2018-04-27] MEDS: Furosemide 20 MG TABLET PO SCH (09:08)
[2018-04-27] MEDS: Gabapentin 300 MG CAPSULE PO SCH ×3 (09:08→21:08)
[2018-04-27] MEDS: Sennosides/Docusate Sodium TABLET PO SCH ×2 (09:08→21:09)
[2018-04-27] MEDS: Ketoconazole 2% CRM 15 GM TUBE TP SCH ×2 (09:20→21:09)
--- NOTE | 2018-04-27 13:03 | Anesthesia Evaluation PreOp ---
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 Any Significant HX Other Medical History: Other (Hx anemia and bleeding) Anesthesia History: No Prior Anesthetic Complications, Past Anesthesia Alcohol Use: none Drug use: marijuana Medications and Allergies RX: Oxygen 4 l NS CONT 07/25/17 [History] RX: Roflumilast [Daliresp] 500 mcg PO DAILY 07/25/17 [History] RX: Omeprazole [PriLOSEC] 20 mg PO 0730 09/30/17 [History] RX: Loratadine [Claritin] 10 mg PO DAILY #30 tablet 11/09/17 [Rx] RX: Gabapentin [Neurontin] 300 mg PO TID 12/31/17 [History] RX: Albuterol Sulfate [Albuterol Inhaler] 2 puff IH Q4H PRN #1 inhaler 01/17/18 [Rx] RX: Rivaroxaban [Xarelto] 20 mg PO DAILY@1700 03/06/18 [History] RX: Fluticasone/Salmeterol [Advair Hfa 115-21 Mcg Inhaler] 2 puff IH BID 04/11/18 [History] RX: Ipratropium/Albuterol Sulfate [Iprat-Albut 0.5-3(2.5) mg/3 ml] 1 vial IH Q4H PRN 04/11/18 [History] RX: Potassium Chloride 20 meq PO DAILY #30 tab.er.prt 04/11/18 [Rx] RX: Minocycline [Minocin] 100 mg PO Q12HR 14 Days #28 capsule 04/23/18 [Rx] RX: Sennosides/Docusate Sodium [Senna Plus] 2 each PO BID 30 Days #60 tablet 04/23/18 [Rx] RX: Furosemide [Lasix] 20 mg PO DAILY 04/25/18 [History] RX: Mometasone/Formoterol [Dulera 100 Mcg/5 Mcg Inhaler] 2 puff IH BID 04/25/18 [History] predniSONE [Prednisone] 50 mg PO DAILY 04/25/18 [History] Allergy/AdvReac Type Severity Reaction Status Date / Time levofloxacin AdvReac Blurry Verified 04/25/18 14:40 Vision - Meds/Allergy Pre-op Review Medications Reviewed: Yes Allergies Reviewed: Yes Beta Blockers on Current Med List: No (no active beta john on JUL) Anesthesia Results - Labs 04/27/18 05:55 04/27/18 05:55 - Imaging EKG: report reviewed (Sinus tachycardia Minimal ST depression, lateral leads) Additional studies: Echocardiogram Name: Jason Blanchard Date of Study: 02/16/2018 EV/EV echocardiogram Impressions: LVEF 50-55%. Normal LV chamber size, wall thickness and systolic function. Mild left ventricular diastolic dysfunction. Normal right ventricular structure and function. Mildly dilated left atrium. Mild mitral regurgitation. No pulmonary hypertension. 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
[2018-04-27] MEDS ORDERED: *HR* FentaNYL (PF) 100 MCG/2 ML VIAL ONE (13:48)
[2018-04-27] MEDS ORDERED: *HR* Propofol 200 MG/20 ML VIAL IVP ONE ×2 (13:49→13:56)
[2018-04-27] MEDS ORDERED: Lidocaine -MPF 2% 2 ML VIAL ONE (13:51)
[2018-04-27] MEDS ORDERED: Lidocaine -MPF 4% 5 ML AMPUL ONE (13:51)
--- NOTE | 2018-04-27 13:51 | Internal Med Progress Note ---
Hospitalist Progress Note - Encounter Date of Encounter: 04/27/18 Time of Encounter: 12:00 - Subjective Interval History: Patient states that he feels about the same as yesterday but he is able to speak in full sentences today at least. Was able to tolerate without BiPaP for meals yesterday as well. No fever/chills. - Exam Vitals: Temp Pulse Resp BP Pulse Ox 97.1 F L 53 18 127/74 98 04/27/18 08:11 04/27/18 13:26 04/27/18 13:26 04/27/18 08:11 04/27/18 13:26 Exam: General: Alert and oriented, mild respiratory distress on BiPaP Cardiovascular:Normal S1 & S2, No JVD. Pulse regular. Lungs: Bilateral rhonchi, slightly improved air entry Abdomen:Soft, non-tender, no rigidity. Extremities:No deformity or swelling Skin:Normal color, no rash, no lesions. - Assessment and Plan (1) Acute and chronic respiratory failure Current Visit: Yes Status: Acute Assessment and Plan: frequent admissions for acute exacerbation of COPD, recently discharged on 04/23 on tapering steroid and minocycline for sputum culture +ve for Stenotrophomonas continue IV solumedrol, bronchodilators continue home dose of minocycline, especially in the setting of improving opacities on CXR. RIP -ve pulm input appreciated, for bronchoscopy today (2) COPD with exacerbation Current Visit: Yes Status: Acute Assessment and Plan: as above (3) Pulmonary embolism Current Visit: No Status: Chronic Assessment and Plan: Continue with anticoagulation post-procedure unless contraindicated from procedural standpoint (4) Diastolic CHF Current Visit: No Status: Chronic Assessment and Plan: does not appear to be in significant volume overload resume home dose of PO lasix (5) Tinea versicolor Current Visit: Yes Status: Acute Assessment and Plan: continue topical ketoconazole (6) DVT prophylaxis Current Visit: No Status: Acute Assessment and Plan: anticoagulation as above - Time Spent with Patient Total time spent is greater than 50% in coordination of care (as documented) at patient's floor/unit and/or counseling patient: Plan of Care Discussed with: patient Internal Medicine: Result - Labs CBC & Chem 7: 04/27/18 05:55 04/27/18 05:55 Labs: Short CBC 04/27/18 Range/Units 05:55 WBC 8.5 (4.3-11.1) K/mcL Hgb 10.6 L D (12.9-16.9) g/dL Hct 33.9 L (37.5-50.1) % Plt Count 331 (140-400) K/mcL Neutrophils # 7.9 (1.6-8.9) K/mcL BMP 04/27/18 05:55 Sodium 135 L Potassium 4.2 Chloride 99 Carbon Dioxide 29 BUN 23 H Creatinine 0.51 L Glucose 204 H Calcium 9.1 - ABG Interpretation ABG results: PT/INR, D-dimer PT 11.5 Seconds (9.4-12.1) 04/27/18 05:55 Consult Discharge Plan - Plan Referrals: Nilson Campa [Primary Care Provider] - (1) Acute and chronic respiratory failure Qualifiers: Respiratory failure complication: hypoxia and hypercapnia Qualified Code(s): J96.21 - Acute and chronic respiratory failure with hypoxia; J96.22 - Acute and chronic respiratory failure with hypercapnia (3) Pulmonary embolism Qualifiers: Pulmonary embolism type: other Chronicity: unspecified Acute cor pulmonale presence: without acute cor pulmonale Qualified Code(s): I26.99 - Other pulmonary embolism without acute cor pulmonale (4) Diastolic CHF Qualifiers: Heart failure chronicity: acute on chronic Qualified Code(s): I50.33 - Acute on chronic diastolic (congestive) heart failure
[2018-04-27] MEDS ORDERED: *HR* Succinylcholine 200 MG/10 ML VIAL IVP ONE (13:52)
[2018-04-27] MEDS ORDERED: Dexamethasone 4 MG/ML VIAL ONE (13:59)
[2018-04-27] MEDS ORDERED: Ondansetron 4 MG/2 ML VIAL ONE (13:59)
--- NOTE | 2018-04-27 14:45 | Anesthesia Evaluation Post Op ---
Date of Encounter: 04/27/18 Time of Encounter: 14:44 - Vital Signs Vital Signs: Vital Signs/O2 Sat, Most Current Temp Pulse Resp BP Pulse Ox 97.3 F L 70 20 146/93 96 04/27/18 14:17 04/27/18 14:37 04/27/18 14:37 04/27/18 14:37 04/27/18 14:37 - Lungs Lungs: Rhonchi - Airway Airway: Non-obstructed - Cardiovascular Regular Rate - Mental Status Mental Status: Alert & Oriented, Answers Appropriately - Pain Pain Scale: 0 Pain Scale used: Numeric (1 - 10) - Nausea Vomiting Nausea Vomiting: Not Present - Hydration Hydration: NPO, Has not voided - Discharge PostOp Status: Transfer Patient to floor
[2018-04-28] MEDS: MethylPREDNISolone 40 MG/ML VIAL IVP SCH ×4 (00:27→17:11)
[2018-04-28] MEDS: Ipratropium/Albuterol Neb 3 ML IH SCH ×3 (04:13→16:00)
--- NOTE | 2018-04-28 08:45 | Pulmonology Progress Note ---
Date of Encounter: 04/28/18 Time of Encounter: 08:45 Assessment and Plan (1) Pneumonia Current Visit: No Status: Acute Patient growing stenotrophomonas in the sputum. And has been treated with minocycline per ID recommendations he came back for shortness of breath and persistent infiltrates bronchoscopy was x-ray notable for much less inflammation or mucus plugging than I anticipated infected think that his convalescing from a standpoint of pneumonia and I would continue current treatment with minocycline as outlined by the infectious disease service. I will follow-up on the cultures and cytology that was taken during bronchoscopy including micro-brushing and the Cytobrush. However I do not think that the diagnostic yield this is contributin g to be very high given the positive inflammation that I saw within the lung. What was striking to me about the bronchoscopy was the degree of bronchomalacia present and I suspect, unfortunately, this is what is precipitating lida persistent symptoms. Unfortunately this is very difficult to treat and one strategy would be to try to break the shortness of breath with positive airway pressure and as immediately as it starts I suspect that this would help to decrease increased work of breathing and dynamic hyperinflation from his underlying COPD but at the day as I explained to Jason he will be short of breath probably forever to some degree. From pulmonary perspective would continue on positive airway pressure as needed for shortness of breath during naps and with sleep he can return to his home COPD regimen of scheduled bronchodilators and Symbicort he would also need prednisone and a prolonged taper over the next 4-6 weeks starting at 40 mg prednisone decreasing by 10 mg weekly He will complete a course of minocycline per ID recommendations Pulmonary follow-up in the next 1-2 weeks to evaluate progress We will sign off at this time thank you for this consultation please call with any questions Qualifiers: Pneumonia type: aspiration pneumonia Aspiration pneumonia type: unspecified Laterality: left Lung location: lower lobe of lung Qualified Code(s): J69.0 - Pneumonitis due to inhalation of food and vomit (2) Acute exacerbation of chronic obstructive airways disease Current Visit: Yes Status: Acute (3) Acute and chronic respiratory failure Current Visit: Yes Status: Acute Qualifiers: Respiratory failure complication: hypoxia and hypercapnia Qualified Code(s): J96.21 - Acute and chronic respiratory failure with hypoxia; J96.22 - Acute and chronic respiratory failure with hypercapnia (4) Diastolic CHF Current Visit: No Status: Chronic Qualifiers: Heart failure chronicity: acute on chronic Qualified Code(s): I50.33 - Acute on chronic diastolic (congestive) heart failure (5) MYNOR (obstructive sleep apnea) Current Visit: No Status: Acute Subjective Principal diagnosis: COPD exacerbation Interval history: Jason did well overnight he denies any complaints is looking forward to going home. Remains afebrile Objective PUL Vital signs: Last Vital Signs Temp 97.8 F 04/28/18 07:39 Pulse 56 04/28/18 07:39 Resp 18 04/28/18 07:39 BP 131/79 04/28/18 07:39 Pulse Ox 99 04/28/18 04:45 General appearance: no acute distress Eyes: nonicteric Neck: supple Auscultation: bilateral: clear Cardiovascular: regular rate and rhythm Integumentary: normal Extremities: edema (Trace lower extremity edema) Musculoskeletal: no deformities normal mental status, non-focal exam mood appropriate Results - Laboratory Findings CBC and BMP: 04/27/18 05:55 04/27/18 05:55 PT/INR, D-dimer PT 11.5 Seconds (9.4-12.1) 04/27/18 05:55 Abnormal lab findings: Abnormal lab results RBC 4.03 M/mcL (4.19-5.50) L 04/27/18 05:55 Hgb 10.6 g/dL (12.9-16.9) L D 04/27/18 05:55 Hct 33.9 % (37.5-50.1) L 04/27/18 05:55 MCH 26.3 pg (28.0-33.3) L 04/27/18 05:55 MCHC 31.3 g/dL (31.6-35.5) L 04/27/18 05:55 RDW 15.8 % (11.5-14.5) H 04/27/18 05:55 Lymphocytes # 0.5 K/mcL (0.6-4.6) L 04/27/18 05:55 Sodium 135 mEq/L (136-145) L 04/27/18 05:55 BUN 23 mg/dL (6-20) H 04/27/18 05:55 Creatinine 0.51 mg/dL (0.70-1.30) L 04/27/18 05:55 BUN/Creatinine Ratio 45 (6-26) H 04/27/18 05:55 Glucose 204 mg/dL (70-105) H 04/27/18 05:55 POC Glucose 226 mg/dL (70-99) H 04/27/18 21:18 - Clinical Findings Intake & Output: Intake & Output 04/27/18 04/28/18 04/28/18 23:59 07:59 15:59 Intake Total 600 / 600 Balance 600 / 600 Weight 91.5 kg Consult Discharge Plan - Plan Referrals: Nilson Campa [Primary Care Provider] -
[2018-04-28] MEDS: Sennosides/Docusate Sodium TABLET PO SCH ×2 (09:17→20:57)
[2018-04-28] MEDS: Loratadine 10 MG TABLET PO SCH (09:17)
[2018-04-28] MEDS: Gabapentin 300 MG CAPSULE PO SCH ×3 (09:17→20:57)
[2018-04-28] MEDS: Furosemide 20 MG TABLET PO SCH (09:17)
[2018-04-28] MEDS: Fluconazole 100 MG TABLET PO SCH (09:17)
[2018-04-28] MEDS: Ketoconazole 2% CRM 15 GM TUBE TP SCH ×3 (09:18→21:11)
[2018-04-28 10:04] LABS: Source of Body Fluid left lower lung
[2018-04-28 12:08] LABS: Appearance of Body Fluid Cloudy (Clear); Volume of Body Fluid 20 mL
[2018-04-28] MEDS: 0.9 % Sodium Chloride 1,000 ML IVC SCH ×2 (12:22→12:23)
--- NOTE | 2018-04-28 12:32 | Internal Med Progress Note ---
Hospitalist Progress Note - Encounter Date of Encounter: 04/28/18 Time of Encounter: 10:00 - Subjective Interval History: Seen without BiPaP today, reports that he feels better than yesterday finally. Underwent bronchoscopy uneventfully, no fever/chills or worsening sputum production. - Exam Vitals: Temp Pulse Resp BP Pulse Ox 97.4 F L 56 20 136/95 96 04/28/18 12:05 04/28/18 12:05 04/28/18 12:05 04/28/18 12:05 04/28/18 12:05 Exam: General: Alert and oriented, improving respiratory distress Cardiovascular:Normal S1 & S2, No JVD. Pulse regular. Lungs: Bilateral scattered rhonchi with significantly improved air entry Abdomen:Soft, non-tender, no rigidity. Extremities:No deformity or swelling Skin:Normal color, no rash, no lesions. - Assessment and Plan (1) Acute and chronic respiratory failure Current Visit: Yes Status: Acute Assessment and Plan: frequent admissions for acute exacerbation of COPD, recently discharged on 04/23 on tapering steroid and minocycline for sputum culture +ve for Stenotrophomonas pulm input appreciated, underwent bronch yesterday which showed bronchomalacia throughout the entire airway as well as scant secretions patient clinically improved and tolerating well without BiPaP will try to taper steroid today, 40mg BID. Upon discharge, he will be tapered off over 4-6 weeks decreasing 10mg weekly continue minocycline and bronchodilators RIP -ve (2) Acquired bronchomalacia Current Visit: Yes Status: Acute Assessment and Plan: appears to be a significant contributing factor to his symptoms PRN positive airway pressure as soon as his symptoms start (3) COPD with exacerbation Current Visit: Yes Status: Acute Assessment and Plan: as above (4) Pulmonary embolism Current Visit: No Status: Chronic Assessment and Plan: resume anticoagulation (5) Diastolic CHF Current Visit: No Status: Chronic Assessment and Plan: does not appear to be in significant volume overload resume home dose of PO lasix (6) Tinea versicolor Current Visit: Yes Status: Acute Assessment and Plan: continue topical ketoconazole (7) DVT prophylaxis Current Visit: No Status: Acute Assessment and Plan: anticoagulation as above - Time Spent with Patient Total time spent is greater than 50% in coordination of care (as documented) at patient's floor/unit and/or counseling patient: Plan of Care Discussed with: patient Internal Medicine: Result - Labs CBC & Chem 7: 04/27/18 05:55 04/27/18 05:55 - ABG Interpretation ABG results: PT/INR, D-dimer PT 11.5 Seconds (9.4-12.1) 04/27/18 05:55 Consult Discharge Plan - Plan Referrals: Nilson Campa [Primary Care Provider] - (1) Acute and chronic respiratory failure Qualifiers: Respiratory failure complication: hypoxia and hypercapnia Qualified Code(s): J96.21 - Acute and chronic respiratory failure with hypoxia; J96.22 - Acute and chronic respiratory failure with hypercapnia (4) Pulmonary embolism Qualifiers: Pulmonary embolism type: other Chronicity: unspecified Acute cor pulmonale presence: without acute cor pulmonale Qualified Code(s): I26.99 - Other pulmonary embolism without acute cor pulmonale (5) Diastolic CHF Qualifiers: Heart failure chronicity: acute on chronic Qualified Code(s): I50.33 - Acute on chronic diastolic (congestive) heart failure
[2018-04-28] MEDS ORDERED: *HR* Rivaroxaban 10 MG TABLET PO SCH (17:00)
[2018-04-28] MEDS ORDERED: Melatonin 3 MG TABLET PO PRN (19:53)
[2018-04-28] MEDS: Budesonide/Formoterol 160/4.5 1 PUFF INH IH SCH (20:33)
[2018-04-28] MEDS ORDERED: Dextrose Gel 15 GM/37.5 ML TUBE PO PRN ×2 (21:04)
[2018-04-28] MEDS ORDERED: D5% in Water 1,000 ML IVC PRN (21:04)
[2018-04-28] MEDS ORDERED: *HR* Dextrose 50 % in Water (Syg) 50 ML SYRINGE IVP PRN (21:04)
[2018-04-28] MEDS ORDERED: Insulin LISPRO 300 UNITS/3 ML VIAL SQ SCH (21:15)
[2018-04-29] MEDS: Ipratropium/Albuterol Neb 3 ML IH SCH ×3 (00:36→10:51)
[2018-04-29 02:43] LABS: Hematocrit 34.1 % (37.5-50.1); Hemoglobin 10.7 g/dL (12.9-16.9); Immature Granulocytes % 0.4 % (0-4); Lymphocytes # 0.6 K/mcL (0.6-4.6); Lymphocytes % 7.4 %; Mean Corpuscular HGB Conc 31.4 g/dL (31.6-35.5); Mean Corpuscular Hemoglobin 26.8 pg (28.0-33.3); Mean Corpuscular Volume 85.3 fL (83.0-100.0); Mean Platelet Volume 10.3 fL (9.4-12.4); Monocytes # 0.2 K/mcL (0.0-1.3); Monocytes % 2.9 %; Neutrophils # 6.8 K/mcL (1.6-8.9); Platelet Count 299 K/mcL (140-400); Red Cell Distribution Width 15.8 % (11.5-14.5); Segmented Neutrophils % 89.3 %
[2018-04-29 03:01] LABS: BUN/Creatinine Ratio 49 (6-26); Blood Urea Nitrogen 24 mg/dL (6-20); Calcium 9.1 mg/dL (8.6-10.3); Carbon Dioxide 26 mEq/L (23-29); Chloride 97 mEq/L (98-107); Glucose 202 mg/dL (70-105); Osmolality,Calculated 282 (280-300); Potassium 4.5 mEq/L (3.5-5.1); Sodium 131 mEq/L (136-145); eGFR For Non-African Americans > 60 (> 60)
[2018-04-29] MEDS: MethylPREDNISolone 40 MG/ML VIAL IVP SCH (05:07)
[2018-04-29 06:49] VITALS: BP 128/76
[2018-04-29] MEDS ORDERED: Insulin LISPRO 300 UNITS/3 ML VIAL SQ SCH (07:30)
[2018-04-29] MEDS: Furosemide 20 MG TABLET PO SCH (08:37)
[2018-04-29] MEDS: Sennosides/Docusate Sodium TABLET PO SCH (08:37)
[2018-04-29] MEDS: Fluconazole 100 MG TABLET PO SCH (08:37)
[2018-04-29] MEDS: Loratadine 10 MG TABLET PO SCH (08:38)
[2018-04-29] MEDS: Ketoconazole 2% CRM 15 GM TUBE TP SCH (08:38)
[2018-04-29] MEDS: Gabapentin 300 MG CAPSULE PO SCH (08:38)
--- NOTE | 2018-04-29 10:49 | Discharge Summary ---
- NOTES TO OUTPATIENT PROVIDER Notes to Outpatient Provider: Patient was admitted for acute on chronic hypercarbic respiratory failure. Likely due to COPD exacerbation + bronchomalacia. Bronchoscopy was done this time which showed bronchomalacia throughout his airway. BAL pending at the time of discharge. He will need to follow up with pulmonary as outpatient in 1-2 weeks with tapering steroid for 4 weeks. Continuing on minocycline. Orders not resulted at time of discharge: Pending orders 04/27/18 14:00 AFB Culture, Respiratory [TB] Routine AFB Smear [TB] Routine Culture,Respiratory [RM] Routine Culture,Respiratory [RM] Routine Fungal Culture [MYC] Routine Fungal Culture [MYC] Routine Herpes Simplex PCR Body Fl Routine Legionella Culture [RM] Routine Resp.Virus Panel,Body Fl Routine 04/27/18 14:08 Cytology [PTH] Routine 04/27/18 14:20 Cytology [PTH] Routine Date of Encounter: 04/29/18 Time of Encounter: 07:30 - Discharge Diagnosis (1) Acute and chronic respiratory failure Priority: Primary Status: Acute Qualifiers: Respiratory failure complication: hypoxia and hypercapnia Qualified Code(s): J96.21 - Acute and chronic respiratory failure with hypoxia; J96.22 - Acute and chronic respiratory failure with hypercapnia (2) Acquired bronchomalacia Priority: Secondary Status: Acute (3) COPD with exacerbation Priority: Secondary Status: Acute (4) Pulmonary embolism Priority: Secondary Status: Chronic Qualifiers: Pulmonary embolism type: other Chronicity: unspecified Acute cor pulmonale presence: without acute cor pulmonale Qualified Code(s): I26.99 - Other pulmonary embolism without acute cor pulmonale (5) Diastolic CHF Priority: Secondary Status: Chronic Qualifiers: Heart failure chronicity: acute on chronic Qualified Code(s): I50.33 - Acute on chronic diastolic (congestive) heart failure (6) Tinea versicolor Priority: Secondary Status: Acute (7) DVT prophylaxis Priority: Secondary Status: Acute Hospital course: Mr. Blanchard is a 58 year old male was admitted for acute on chronic hypercarbic respiratory failure. Likely due to COPD exacerbation + bronchomalacia. Respiratory infection panel -ve. Bronchoscopy was done this time which showed bronchomalacia throughout his airway. BAL pending at the time of discharge. He will need to follow up with pulmonary as outpatient in 1-2 weeks with tapering steroid for 4 weeks. Continuing on minocycline. Discharge discussed with: patient, social work, case management - Time Spent with Patient Total time spent providing and/or coordinating discharge services: 37 mins - Discharge Medications Prescriptions: Fluconazole [Diflucan] 400 mg PO DAILY 14 Days #56 tablet predniSONE [PredniSONE] 40 mg PO DAILY #35 tablet Home Medications: Oxygen 4 l NS CONT 07/25/17 [History] Roflumilast [Daliresp] 500 mcg PO DAILY 07/25/17 [History] Omeprazole [PriLOSEC] 20 mg PO 0730 09/30/17 [History] Loratadine [Claritin] 10 mg PO DAILY #30 tablet 11/09/17 [Rx] Gabapentin [Neurontin] 300 mg PO TID 12/31/17 [History] Albuterol Sulfate [Albuterol Inhaler] 2 puff IH Q4H PRN #1 inhaler 01/17/18 [Rx] Rivaroxaban [Xarelto] 20 mg PO DAILY@1700 03/06/18 [History] Fluticasone/Salmeterol [Advair Hfa 115-21 Mcg Inhaler] 2 puff IH BID 04/11/18 [History] Potassium Chloride 20 meq PO DAILY #30 tab.er.prt 04/11/18 [Rx] Minocycline [Minocin] 100 mg PO Q12HR 14 Days #28 capsule 04/23/18 [Rx] Sennosides/Docusate Sodium [Senna Plus] 2 each PO BID 30 Days #60 tablet 04/23/18 [Rx] Furosemide [Lasix] 20 mg PO DAILY 04/25/18 [History] Mometasone/Formoterol [Dulera 100 Mcg/5 Mcg Inhaler] 2 puff IH BID 04/25/18 [History] Fluconazole [Diflucan] 400 mg PO DAILY 14 Days #56 tablet 04/29/18 [Rx] Ipratropium/Albuterol Sulfate [Iprat-Albut 0.5-3(2.5) mg/3 ml] 1 vial IH Q4H #120 04/29/18 [Rx] predniSONE [PredniSONE] 40 mg PO DAILY #35 tablet 04/29/18 [Rx] Allergies/Adverse Reactions: Allergy/AdvReac Type Severity Reaction Status Date / Time levofloxacin AdvReac Blurry Verified 04/25/18 14:40 Vision Date of admission: 04/26/18 14:04 Primary care physician: Nilson Campa Consults: 04/25/18 19:33 Consult to Nurse Navigator [CONS] Routine Comment: Consult to Pulmonary Rehab [CONS] Routine Reason for Consult: Recurrent admission for possible COPD exacerbation Call Completed: No 04/26/18 11:47 Consult to Pulmonology [CONS] Routine Consulting Provider: Pulm Crit Care & Sleep Jeaneth Reason for Consult: recurrent COPD exacerbation, sputum +ve for stenotrophomonas last week. On minocycline Call Completed: Yes 04/26/18 12:00 Consult to Occupational Therapy [CONS] Routine Comment: Evaluate, develop and implement POC Reason for Consult: Poss rehab at discharge; multiple readmissions Does patient have active BEDREST order?: No Is patient medically & hemodynamically stable?: Yes Consult to Physical Therapy [CONS] Routine Comment: Evaluate, develop and implement POC Reason for Consult: Poss rehab at discharge; multiple readmissions Does patient have active BEDREST order?: No Is patient medically & hemodynamically stable?: Yes Patient assessed for mobility or mobilized this visit?: Yes - Constitutional Vitals: Temp Pulse Resp BP Pulse Ox 98.0 F 64 16 128/76 96 04/29/18 06:48 04/29/18 06:48 04/29/18 06:48 04/29/18 06:48 04/29/18 06:48 Exam: General: Alert and oriented, improving respiratory distress Cardiovascular:Normal S1 & S2, No JVD. Pulse regular. Lungs: Bilateral scattered rhonchi with significantly improved air entry Abdomen:Soft, non-tender, no rigidity. Extremities:No deformity or swelling Skin:Normal color, no rash, no lesions. - Patient Status Disposition: Home Health Service Condition: Fair Overall status at discharge: patient is progressing back to baseline - Discharge Instructions Instructions: Chronic Obstructive Pulmonary Disease (DC) Follow Up With: Nilson Campa [Primary Care Provider] - Richard Skinner MD [Partnered Physician] - Additional Instructions: Taper steroids over 4 weeks COmplete minocycline Use positive airway pressure ventilation at the onset of his symptoms to assist with his work of breathing and hyperinflation Follow up with pulmonary in 1-2 weeks - Diet and Activity Activity: resume usual activities as tolerated Diet: diabetic diet
[2018-04-29] MEDS: Budesonide/Formoterol 160/4.5 1 PUFF INH IH SCH (10:51)
--- NOTE | 2018-04-29 10:59 | Physician Discharge Referral ---
Home Health/Hosp Referral Info Transfer to: Home Health - Diagnosis (1) Acute and chronic respiratory failure Priority: Primary Status: Acute (2) Acquired bronchomalacia Priority: Secondary Status: Acute (3) COPD with exacerbation Priority: Secondary Status: Acute (4) Pulmonary embolism Priority: Secondary Status: Chronic (5) Diastolic CHF Priority: Secondary Status: Chronic (6) Tinea versicolor Priority: Secondary Status: Acute (7) DVT prophylaxis Priority: Secondary Status: Acute - Respiratory Orders Smoking Cessation: Smoking cessation has been advised. For more information, call the [place] Tobacco Quit Line at 1-968-PNKPNOW. - Services Needed Following services are medically necessary services: Nursing, Home Health Aide, Physical Therapy, Occupational Therapy - Transfer Medications Prescriptions: Fluconazole [Diflucan] 400 mg PO DAILY 14 Days #56 tablet predniSONE [PredniSONE] 40 mg PO DAILY #35 tablet Home Medications: Oxygen 4 l NS CONT 07/25/17 [History] Roflumilast [Daliresp] 500 mcg PO DAILY 07/25/17 [History] Omeprazole [PriLOSEC] 20 mg PO 0730 09/30/17 [History] Loratadine [Claritin] 10 mg PO DAILY #30 tablet 11/09/17 [Rx] Gabapentin [Neurontin] 300 mg PO TID 12/31/17 [History] Albuterol Sulfate [Albuterol Inhaler] 2 puff IH Q4H PRN #1 inhaler 01/17/18 [Rx] Rivaroxaban [Xarelto] 20 mg PO DAILY@1700 03/06/18 [History] Fluticasone/Salmeterol [Advair Hfa 115-21 Mcg Inhaler] 2 puff IH BID 04/11/18 [History] Potassium Chloride 20 meq PO DAILY #30 tab.er.prt 04/11/18 [Rx] Minocycline [Minocin] 100 mg PO Q12HR 14 Days #28 capsule 04/23/18 [Rx] Sennosides/Docusate Sodium [Senna Plus] 2 each PO BID 30 Days #60 tablet 04/23/18 [Rx] Furosemide [Lasix] 20 mg PO DAILY 04/25/18 [History] Mometasone/Formoterol [Dulera 100 Mcg/5 Mcg Inhaler] 2 puff IH BID 04/25/18 [History] Fluconazole [Diflucan] 400 mg PO DAILY 14 Days #56 tablet 04/29/18 [Rx] Ipratropium/Albuterol Sulfate [Iprat-Albut 0.5-3(2.5) mg/3 ml] 1 vial IH Q4H #120 04/29/18 [Rx] predniSONE [PredniSONE] 40 mg PO DAILY #35 tablet 04/29/18 [Rx] Allergies/Adverse Reactions: Allergy/AdvReac Type Severity Reaction Status Date / Time levofloxacin AdvReac Blurry Verified 04/25/18 14:40 Vision Certification: Further, I certify that my clinical findings support that this patient is homebound (i.e. absences from home require considerable and taxing effort and are for medical reasons or yarsani services or infrequently or short duration when for other reasons) because: Homebound Reason: Patient requires assistance of a person or device to safely leave home, Leaving home requires considerable and taxing effort due to condition Attestation: My signature below is to certify that this patient is under my care and that I, or nurse practitioner, or a physician's seo assistant working with me, has a [id number] encounter with this patient.
[2018-05-01 09:49] LABS: Influenza A PCR Body Fluid NOT DETECTED; Influenza B PCR Body Fluid NOT DETECTED; RVP Body Fluid Source BAL
[2018-05-01 14:25] LABS: RSV PCR Body Fluid NOT DETECTED
[2018-05-02 06:04] LABS: HSV Source BAL
== END 2018-04-29 13:35 | disposition home health service (06) | DRG 140 ==
LOC: EMEROOARM 14:38 → 2NENU 21:32 → INTOOBSV 21:32 → SUATTDRO 21:32 → 2NENU 22:12
PROVIDERS: ADMIT Internal Medicine; ATTEND Internal Medicine

== ENCOUNTER 2018-05-05 11:58 | Inpatient (IN) ==
[2018-05-05] MEDS ORDERED: Ipratropium/Albuterol Neb 3 ML IH ONE (12:23)
[2018-05-05] MEDS ORDERED: methylPREDNISolone 125 MG/2 ML VIAL IVP ONE (12:23)
--- NOTE | 2018-05-05 12:34 | Emergency Department Note ---
Disposition Clinical Impression: COPD exacerbation Pneumonia Qualifiers: Pneumonia type: due to unspecified organism Laterality: bilateral Lung location: unspecified part of lung Qualified Code(s): J18.9 - Pneumonia, u nspecified organism Sepsis Qualifiers: Sepsis type: sepsis due to unspecified organism Qualified Code(s): A41.9 - Sepsis, unspecified organism Disposition: Admitted As Inpatient Time of Disposition: 14:53 General Adult HPI - General Chief complaint: ED Shortness of Breath/Dyspnea Stated complaint: PHYLLIS Time Seen by Provider: 05/05/18 12:11 Source: patient Limitations: no limitations - History of Present Illness Pain Scale: 9 - Related Data Home Medications Medication Instructions Recorded Confirmed Oxygen 4 l NS CONT 07/25/17 04/25/18 Roflumilast [Daliresp] 500 mcg PO DAILY 07/25/17 04/25/18 Omeprazole [PriLOSEC] 20 mg PO 0730 09/30/17 04/25/18 Gabapentin [Neurontin] 300 mg PO TID 12/31/17 04/25/18 Rivaroxaban [Xarelto] 20 mg PO DAILY@1700 03/06/18 04/25/18 Fluticasone/Salmeterol [Advair Hfa 2 puff IH BID 04/11/18 04/25/18 115-21 Mcg Inhaler] Furosemide [Lasix] 20 mg PO DAILY 04/25/18 04/25/18 Mometasone/Formoterol [Dulera 100 2 puff IH BID 04/25/18 04/25/18 Mcg/5 Mcg Inhaler] Previous Rx's Medication Instructions Recorded Loratadine [Claritin] 10 mg PO DAILY #30 tablet 11/09/17 Albuterol Sulfate [Albuterol 2 puff IH Q4H PRN #1 inhaler 01/17/18 Inhaler] Potassium Chloride 20 meq PO DAILY #30 tab.er.prt 04/11/18 Minocycline [Minocin] 100 mg PO Q12HR 14 Days #28 capsule 04/23/18 Sennosides/Docusate Sodium [Senna 2 each PO BID 30 Days #60 tablet 04/23/18 Plus] Fluconazole [Diflucan] 400 mg PO DAILY 14 Days #56 tablet 04/29/18 Ipratropium/Albuterol Sulfate 1 vial IH Q4H #120 04/29/18 [Iprat-Albut 0.5-3(2.5) mg/3 ml] predniSONE [PredniSONE] 40 mg PO DAILY #35 tablet 04/29/18 Allergies Allergy/AdvReac Type Severity Reaction Status Date / Time levofloxacin AdvReac Blurry Verified 05/05/18 12:06 Vision Past Medical History - Past Medical History Medical history: Reports: CHF, COPD, hyperlipidemia, hypertension, pulmonary embolus Surgical history: Reports: no surgical history Psychiatric history: Reports: anxiety, depression - Social History Smoking Status: Former smoker Smokeless Tobacco Status: No Alcohol use: Reports: none Drug use: Reports: marijuana Physical Exam - General Limitations: no limitations General appearance: alert Course Vital Signs Temperature 97.7 F 05/05/18 12:01 Pulse Rate 101 05/05/18 12:01 Respiratory Rate 18 05/05/18 12:01 Blood Pressure 151/93 05/05/18 12:01 O2 Sat by Pulse Oximetry 93 05/05/18 12:01 Temperature 97.7 F 05/05/18 12:09 Pulse Rate 77 05/05/18 12:30 Respiratory Rate 22 05/05/18 12:54 Blood Pressure 141/74 05/05/18 12:30 O2 Sat by Pulse Oximetry 97 05/05/18 12:54 Oxygen Delivery Oxygen Delivery Nasal Cannula Medical Decision Making - Lab Data Result diagrams: 05/05/18 12:23 05/05/18 12:23 Lab Results 05/05/18 05/05/18 05/05/18 Range/Units 12:23 12:23 12:30 WBC 6.8 (4.3-11.1) K/mcL RBC 4.20 (4.19-5.50) M/mcL Hgb 11.1 L (12.9-16.9) g/dL Hct 35.9 L (37.5-50.1) % MCV 85.5 (83.0-100.0) fL MCH 26.4 L (28.0-33.3) pg MCHC 30.9 L (31.6-35.5) g/dL RDW 15.9 H (11.5-14.5) % Plt Count 212 (140-400) K/mcL MPV 10.0 (9.4-12.4) fL Immature Gran % 0.7 (0-4) % Seg Neutrophils % 89.0 % Lymphocytes % 8.7 % Monocytes % 1.6 % Eosinophils % 0.0 % Basophils % 0.0 % Neutrophils # 6.0 (1.6-8.9) K/mcL Lymphocytes # 0.6 (0.6-4.6) K/mcL Monocytes # 0.1 (0.0-1.3) K/mcL Eosinophils # 0.0 (0.0-0.6) K/mcL Basophils # 0.0 (0.0-0.2) K/mcL Sodium 136 (136-145) mEq/L Potassium 4.1 (3.5-5.1) mEq/L Chloride 102 (98-107) mEq/L Carbon Dioxide 27 (23-29) mEq/L BUN 16 (6-20) mg/dL Creatinine 0.46 L (0.70-1.30) mg/dL Est GFR ( Amer) > 60 (> 60) Est GFR (Non-Af Amer) > 60 (> 60) BUN/Creatinine Ratio 35 H (6-26) Glucose 114 H (70-105) mg/dL Calculated Osmolality 284 (280-300) Calcium 8.5 L (8.6-10.3) mg/dL Troponin I < 0.03 (< 0.04) ng/mL B-Natriuretic Peptide 105 H (Less than 100) pg/mL Critical Care Time Critical Care Time: Yes Total Critical Care Time: 35 Attestation: Critical care performed: Time is exclusive of separately billable procedures. Time includes: direct patient care, patient reassessment, coordination of patient care, interpretation of data (laboratory data, radiology data, and respiratory data), review of patient's medical records, medical consultation and documentation of patient care. Procedures included in critical care time: Procedures excluded from critical care time: Attestation Statement - Attestation Attestation: I examined this patient and my medical decision-making was reviewed with the Resident Physician. I agree with the documented findings, disposition and treatment plan as described except to the extent set forth below. Patient presents to the ED with a chief complaint of shortness of breath. Onset 2 days ago. No fever. Was admitted at [facility] yesterday and was discharged this morning. Patient states his sisters brought back out. On exam he is in no acute distress. Breathing comfortably. Lung sounds diminished. Plan. Nebs steroids cardiac workup and reevaluate. Patient still short of breath. Chest x-ray shows possible infiltrates. He will be treated for hospital-acquired pneumonia and admitted. Patient meets sepsis criteria secondary tachycardia and tachypnea. Chest X-Ray 05/05/18 12:23 IMPRESSION: New, mild patchy left basilar airspace disease may reflect atelectasis, though pneumonia cannot be excluded in the correct setting. D/ / 05/05/2018 13:56:02 Catrina Mejias MD / aiyana Interpreting Provider: Catrina Mejias MD
[2018-05-05 12:55] LABS: Hematocrit 35.9 % (37.5-50.1); Hemoglobin 11.1 g/dL (12.9-16.9); Immature Granulocytes % 0.7 % (0-4); Lymphocytes # 0.6 K/mcL (0.6-4.6); Lymphocytes % 8.7 %; Mean Corpuscular HGB Conc 30.9 g/dL (31.6-35.5); Mean Corpuscular Hemoglobin 26.4 pg (28.0-33.3); Mean Corpuscular Volume 85.5 fL (83.0-100.0); Monocytes # 0.1 K/mcL (0.0-1.3); Monocytes % 1.6 %; Platelet Count 212 K/mcL (140-400); Red Cell Distribution Width 15.9 % (11.5-14.5)
[2018-05-05 13:15] LABS: BUN/Creatinine Ratio 35 (6-26); Blood Urea Nitrogen 16 mg/dL (6-20); Calcium 8.5 mg/dL (8.6-10.3); Carbon Dioxide 27 mEq/L (23-29); Chloride 102 mEq/L (98-107); Glucose 114 mg/dL (70-105); Osmolality,Calculated 284 (280-300); Potassium 4.1 mEq/L (3.5-5.1); Sodium 136 mEq/L (136-145); Troponin I < 0.03 ng/mL (< 0.04); eGFR For Non-African Americans > 60 (> 60)
[2018-05-05] MEDS ORDERED: Piperacillin/Tazobactam 3.375 GM in 0.9 % Sodium Chloride Mini Bag 100 ML IVPB ONE (13:18)
[2018-05-05] MEDS ORDERED: Azithromycin 500 MG in D5% in Water 250 ML IVPB ONE (13:18)
--- NOTE | 2018-05-05 13:21 | Emergency Department Note ---
Disposition Clinical Impression: COPD exacerbation Pneumonia Qualifiers: Pneumonia type: due to unspecified organism Laterality: bilateral Lung location: unspecified part of lung Qualified Code(s): J18.9 - Pneumonia, u nspecified organism Sepsis Qualifiers: Sepsis type: sepsis due to unspecified organism Qualified Code(s): A41.9 - Sepsis, unspecified organism Disposition: Admitted As Inpatient Condition: Fair Time of Disposition: 15:54 General Adult HPI - General Chief complaint: ED Shortness of Breath/Dyspnea Stated complaint: PHYLLIS Time Seen by Provider: 05/05/18 12:11 Source: patient Mode of arrival: ambulatory Limitations: no limitations Nursing Notes Reviewed: Yes Vital Signs Reviewed: Yes - History of Present Illness HPI Narrative: 58-year-old male with significant past medical history of COPD currently wearing 4 L nasal cannula at home presenting to the emergency department with chief complaint of shortness of breath. Patient was admitted to an outside facility and discharged yesterday for COPD exacerbation. Patient states he was given a prescription for steroids and antibiotics but has not started them yet. Patient states for the past 2 days has had increased shortness of breath with cough. He has been using his nebulizer treatments every 4 hours at home but has not been feeling any better. Patient describes a tightness in his chest but denies any abdominal pain, nausea or vomiting. Pain Scale: 9 - Related Data Home Medications Medication Instructions Recorded Confirmed Oxygen 4 l NS CONT 07/25/17 04/25/18 Roflumilast [Daliresp] 500 mcg PO DAILY 07/25/17 04/25/18 Omeprazole [PriLOSEC] 20 mg PO 0730 09/30/17 04/25/18 Gabapentin [Neurontin] 300 mg PO TID 12/31/17 04/25/18 Rivaroxaban [Xarelto] 20 mg PO DAILY@1700 03/06/18 04/25/18 Fluticasone/Salmeterol [Advair Hfa 2 puff IH BID 04/11/18 04/25/18 115-21 Mcg Inhaler] Furosemide [Lasix] 20 mg PO DAILY 04/25/18 04/25/18 Mometasone/Formoterol [Dulera 100 2 puff IH BID 04/25/18 04/25/18 Mcg/5 Mcg Inhaler] Previous Rx's Medication Instructions Recorded Loratadine [Claritin] 10 mg PO DAILY #30 tablet 11/09/17 Albuterol Sulfate [Albuterol 2 puff IH Q4H PRN #1 inhaler 01/17/18 Inhaler] Potassium Chloride 20 meq PO DAILY #30 tab.er.prt 04/11/18 Minocycline [Minocin] 100 mg PO Q12HR 14 Days #28 capsule 04/23/18 Sennosides/Docusate Sodium [Senna 2 each PO BID 30 Days #60 tablet 04/23/18 Plus] Fluconazole [Diflucan] 400 mg PO DAILY 14 Days #56 tablet 04/29/18 Ipratropium/Albuterol Sulfate 1 vial IH Q4H #120 04/29/18 [Iprat-Albut 0.5-3(2.5) mg/3 ml] predniSONE [PredniSONE] 40 mg PO DAILY #35 tablet 04/29/18 Allergies Allergy/AdvReac Type Severity Reaction Status Date / Time levofloxacin AdvReac Blurry Verified 05/05/18 12:06 Vision All systems ED: reviewed and negative except as stated. Constitutional: Denies: fever, chills Eyes: Reports: as per HPI ENT ED: Reports: as per HPI Cardiovascular: Reports: chest pain, dyspnea on exertion. Denies: palpitations Respiratory: Reports: cough, dyspnea Gastrointestinal: Denies: abdominal pain, nausea, vomiting Genitourinary: Reports: as per HPI Musculoskeletal: Reports: as per HPI Integumentary: Reports: as per HPI Neurological: Denies: weakness, numbness, paresthesias Psychiatric: Reports: as per HPI Endocrine: Reports: as per HPI Hematological/Lymphatic: Reports: as per HPI Allergic/Immunologic: Reports: as per HPI Past Medical History - Past Medical History Attestation: Yes The following information was validated with the patient. Medical history: Reports: CHF, COPD, hyperlipidemia, hypertension, pulmonary embolus Surgical history: Reports: no surgical history Psychiatric history: Reports: anxiety, depression - Social History Smoking Status: Former smoker Smokeless Tobacco Status: No Alcohol use: Reports: none Drug use: Reports: marijuana Physical Exam - General Limitations: no limitations General appearance: alert - Head Head exam: atraumatic, normocephalic, normal inspection - Eye Eye exam: Present: normal appearance. Absent: scleral icterus, conjunctival injection - ENT ENT exam: normal exam, mucous membranes moist - Neck Neck exam: Present: normal inspection, full ROM. Absent: tenderness, meningismus - Chest Chest inspection: Present: normal inspection, symmetric chest wall rise. Absent: tenderness, rash - Respiratory Respiratory exam: Present: other (Tight aeration throughout. Coarse breath sounds in the bilateral upper airways) - Cardiovascular Cardiovascular exam: Present: normal rhythm, tachycardia, normal heart sounds - Abdominal Exam Abdominal exam: Present: soft, Non-Tender. Absent: distention, guarding, rebound - Extremities Exam Extremities exam: Present: normal inspection, full ROM - Neurological Exam Neurological exam: Present: alert, oriented X3 - Psychiatric Psychiatric exam: Present: normal affect, normal mood - Skin Skin exam: Present: warm, intact Course Course Narrative: 58-year-old male presenting to the emergency department chief complaint shortness of breath. In the room patient is tachycardic but otherwise hemodynamically stable. Alert and oriented 3. Patient states he has been doing his nebulizers at home every 4 hours as prescribed. Patient's physical exam shows coarse breath sounds throughout with tight aeration in the bilateral bases. Patient was recently admitted at an outside facility for COPD exacerbation. At this time will plan to perform a difficulty in breathing workup including labs and chest x-ray. Disposition pending but most likely admission. Patient agrees with this plan. - Reevaluation(s) Reevaluation #1: Patient's laboratory analysis unchanged from baseline. Chest x-ray concerning for new pneumonia. At this time due to patient's recent admission and difficulty in breathing will plan to treat him for healthcare acquired pneumonia with vancomycin, Zosyn and azithromycin. Patient will be admitted to hospitalist service. I spoke with the hospitalist auto phone installer Dr. Samuel who agrees to accept the patient at this time. Patient is alert and oriented 3 and hemodynamically stable. Patient agrees with this plan. Vital Signs Temperature 97.7 F 05/05/18 12:01 Pulse Rate 101 05/05/18 12:01 Respiratory Rate 18 05/05/18 12:01 Blood Pressure 151/93 05/05/18 12:01 O2 Sat by Pulse Oximetry 93 05/05/18 12:01 Temperature 97.7 F 05/05/18 12:09 Pulse Rate 77 05/05/18 12:30 Respiratory Rate 22 05/05/18 12:54 Blood Pressure 141/74 05/05/18 12:30 O2 Sat by Pulse Oximetry 97 05/05/18 12:54 Oxygen Delivery Oxygen Delivery Nasal Cannula Medical Decision Making - Lab Data Result diagrams: 05/05/18 12:23 05/05/18 12:23 Lab Results 05/05/18 05/05/18 05/05/18 Range/Units 12:23 12:23 12:30 WBC 6.8 (4.3-11.1) K/mcL RBC 4.20 (4.19-5.50) M/mcL Hgb 11.1 L (12.9-16.9) g/dL Hct 35.9 L (37.5-50.1) % MCV 85.5 (83.0-100.0) fL MCH 26.4 L (28.0-33.3) pg MCHC 30.9 L (31.6-35.5) g/dL RDW 15.9 H (11.5-14.5) % Plt Count 212 (140-400) K/mcL MPV 10.0 (9.4-12.4) fL Immature Gran % 0.7 (0-4) % Seg Neutrophils % 89.0 % Lymphocytes % 8.7 % Monocytes % 1.6 % Eosinophils % 0.0 % Basophils % 0.0 % Neutrophils # 6.0 (1.6-8.9) K/mcL Lymphocytes # 0.6 (0.6-4.6) K/mcL Monocytes # 0.1 (0.0-1.3) K/mcL Eosinophils # 0.0 (0.0-0.6) K/mcL Basophils # 0.0 (0.0-0.2) K/mcL Sodium 136 (136-145) mEq/L Potassium 4.1 (3.5-5.1) mEq/L Chloride 102 (98-107) mEq/L Carbon Dioxide 27 (23-29) mEq/L BUN 16 (6-20) mg/dL Creatinine 0.46 L (0.70-1.30) mg/dL Est GFR ( Amer) > 60 (> 60) Est GFR (Non-Af Amer) > 60 (> 60) BUN/Creatinine Ratio 35 H (6-26) Glucose 114 H (70-105) mg/dL Calculated Osmolality 284 (280-300) Lactic Acid (0.5-2.2) mmol/L Calcium 8.5 L (8.6-10.3) mg/dL Troponin I < 0.03 (< 0.04) ng/mL B-Natriuretic Peptide 105 H (Less than 100) pg/mL 05/05/18 Range/Units 12:45 WBC (4.3-11.1) K/mcL RBC (4.19-5.50) M/mcL Hgb (12.9-16.9) g/dL Hct (37.5-50.1) % MCV (83.0-100.0) fL MCH (28.0-33.3) pg MCHC (31.6-35.5) g/dL RDW (11.5-14.5) % Plt Count (140-400) K/mcL MPV (9.4-12.4) fL Immature Gran % (0-4) % Seg Neutrophils % % Lymphocytes % % Monocytes % % Eosinophils % % Basophils % % Neutrophils # (1.6-8.9) K/mcL Lymphocytes # (0.6-4.6) K/mcL Monocytes # (0.0-1.3) K/mcL Eosinophils # (0.0-0.6) K/mcL Basophils # (0.0-0.2) K/mcL Sodium (136-145) mEq/L Potassium (3.5-5.1) mEq/L Chloride (98-107) mEq/L Carbon Dioxide (23-29) mEq/L BUN (6-20) mg/dL Creatinine (0.70-1.30) mg/dL Est GFR ( Amer) (> 60) Est GFR (Non-Af Amer) (> 60) BUN/Creatinine Ratio (6-26) Glucose (70-105) mg/dL Calculated Osmolality (280-300) Lactic Acid 1.3 (0.5-2.2) mmol/L Calcium (8.6-10.3) mg/dL Troponin I (< 0.04) ng/mL B-Natriuretic Peptide (Less than 100) pg/mL - EKG Data EKG #1 EKG attestation: Yes I reviewed and interpreted this EKG. EKG results narrative: Sinus rhythm. 96 beats for minute. IN interval 161, QRS 102, QTC 449. No sign of acute ST segment elevation or ischemia. Compared to previous EKG completed on 04/25/2018 no significant changes noted
[2018-05-05] MEDS ORDERED: Naloxone 0.4 MG/ML INJ IVP PRN (13:37)
[2018-05-05] MEDS ORDERED: Albuterol 2.5 MG/3 ML NEBULIZER IH PRN (13:39)
--- NOTE | 2018-05-05 16:49 | Internal Med History&Physical ---
Date of Encounter: 05/05/18 Time of Encounter: 16:45 Internal Medicine - H&P: HPI Chief complaint: SOB History of present illness: Mr. Blanchard is a 58 year old male with a past medical history of chronic hypoxic respiratory failure on 4 L home oxygen, CHF with preserved ejection fraction, COPD, hypertension, hyperlipidemia and history of PE on anticoagulation who presents to the ED due to shortness of breath. his symptoms starte dsuddenly on vargas day of admission adn have progressively worsened. He reports that his shortness of breath is aggravated by exertion and relieved by rest and oxygen. SOb is associated with productive sptum denies hemoptysis. he was recently discharged secondary to similar complaint and his symptoms were thought to be due to COPD exacerbation + bronchomalacia. Bronchoscopy performed on last admission and showed bronchomalacia throughout his airway. BAL showed stenotrophomonas maltophilia. he was discharged to continue minocycline which was recommended by ID on his admission in late march 2018 hoe ever he has not felt any improvement. Sputum culture from 04/15/2018 grew Stenotrophomonas maltophilia resistant to levofloxacin and Bactrim. Patient reports that on discharge 04/29/18 he felt better however immediately after he reached home developed shortness of breath and decided to go to [facility] for further evaluation. He reports that he was treated for COPD exacerbation at [facility] and was discharged on 05/04. Today he felt as though his breathing worsened again and he was unable to walk around his house as he typically can so he decided to come to the emergency department for further evaluation. He reports that he is compliant with all his medications. On the emergency department chest x-ray showed a new, mild patchy left basilar airspace disease and he was treated with broad-spectrum antibiotics for hospital acquired pneumonia and was endorsed for admission for further evaluation and management of above symptoms. he denies fever, chills, Chest pain, palpitations, leg swelling, hematochezia, tejas, diarrhea, abdominal pain. Past Med Surg Social Fam HX - Past Medical History Medical history: CHF, COPD, hyperlipidemia, hypertension, pulmonary embolus Additional medical history: umbilical hernia Psychiatric history: anxiety, depression - Past Surgical History Surgical History: no surgical history - Social History Smoking Status: Former smoker Smokeless Tobacco Status: No Alcohol use: none Drug use: marijuana - Family History Father Living Status: Hx Family Cancer: Yes (colon) Mother Living Status: Hx Family Cancer: Yes Internal Medicine - H&P: Meds Oxygen 4 l NS CONT 07/25/17 [History] Roflumilast [Daliresp] 500 mcg PO DAILY 07/25/17 [History] Loratadine [Claritin] 10 mg PO DAILY #30 tablet 11/09/17 [Rx] Gabapentin [Neurontin] 300 mg PO TID 12/31/17 [History] Albuterol Sulfate [Albuterol Inhaler] 2 puff IH Q4H PRN #1 inhaler 01/17/18 [Rx] Rivaroxaban [Xarelto] 20 mg PO QPM 03/06/18 [History] Potassium Chloride 20 meq PO DAILY #30 tab.er.prt 04/11/18 [Rx] Minocycline [Minocin] 100 mg PO Q12HR 14 Days #28 capsule 04/23/18 [Rx] Sennosides/Docusate Sodium [Senna Plus] 2 each PO BID 30 Days #60 tablet [Rx] Mometasone/Formoterol [Dulera 100 Mcg/5 Mcg Inhaler] 2 puff IH BID 04/25/18 [History] Ipratropium/Albuterol Sulfate [Iprat-Albut 0.5-3(2.5) mg/3 ml] 1 vial IH Q4H #120 04/29/18 [Rx] predniSONE [PredniSONE] 40 mg PO DAILY #35 tablet 04/29/18 [Rx] Fluconazole [Diflucan] 400 mg PO DAILY 05/05/18 [History] Furosemide [Lasix] 20 mg PO TID 05/05/18 [History] Omeprazole [PriLOSEC] 20 mg PO DAILY 05/05/18 [History] Allergy/AdvReac Type Severity Reaction Status Date / Time levofloxacin AdvReac See Verified 05/05/18 16:16 Comments All Systems PM: A 10-system review of systems was performed and is negative for pertinent fi ndings except as documented above in the HPI. - Constitutional Vitals: Temp Pulse Resp BP Pulse Ox 97.7 F 77 24 140/82 97 05/05/18 12:09 05/05/18 12:30 05/05/18 16:17 05/05/18 16:17 05/05/18 12:54 Exam: General: Patient is alert, oriented, no acute distress, disheveled, obese Head: atraumatic, normocephalic, Eye: normal appearance, no scleral icterus, no conjunctival injection ENT: mucous membranes moist, normal external ear exam Neck: normal inspection, trachea midline, full ROM, no carotid bruits Chest: normal inspection, symmetric chest rise Respiratory: Decreased breath sounds bilaterally secondary to body habitus, occasional wheezing in anterior chest, crackles the posterior lung field Cardiovascular: Distant heart sounds secondary to body habitus , Regular rate and rhythm. s1 and s2 No clicks, rubs, gallops, or murmors. Abdomen: Bowel sounds present normoactive x-4 quadrants. Abdomen is soft, nondistended. no Epigastric tenderness. No guarding or rebound. No organomegaly noted, obese musculoskeletal: Spontaneously moving all extremities. no edema, no calf tenderness Skin: warm, dry, intact. Notable ecchymosis in the bilateral upper extremities in different stages of healing. Neuro: Alert and oriented x4. No focal deficit Psych: Patient's affect is normal Internal Med - H&P Results - Labs CBC & Chem 7: 05/05/18 12:23 05/05/18 12:23 Labs: Short CBC 05/05/18 Range/Units 12:23 WBC 6.8 (4.3-11.1) K/mcL Hgb 11.1 L (12.9-16.9) g/dL Hct 35.9 L (37.5-50.1) % Plt Count 212 (140-400) K/mcL Neutrophils # 6.0 (1.6-8.9) K/mcL BMP 05/05/18 12:23 Sodium 136 Potassium 4.1 Chloride 102 Carbon Dioxide 27 BUN 16 Creatinine 0.46 L Glucose 114 H Calcium 8.5 L Cardiac Enzymes 05/05/18 Range/Units 12:23 Troponin I < 0.03 (< 0.04) ng/mL - Impressions ITS Impressions Chest X-Ray 05/05/18 12:23 IMPRESSION: New, mild patchy left basilar airspace disease may reflect atelectasis, though pneumonia cannot be excluded in the correct setting. D/ / 05/05/2018 13:56:02 Catrina Mejias MD / [email or web address] Interpreting Provider: Catrina Mejias MD - Assessment and plan (1) HAP (hospital-acquired pneumonia) Current Visit: Yes Status: Acute Assessment and plan: most likley secondary to HAP. has had BAL cultures and multiple other cultures positive with stenotrophomonas maltophilia recently discharged with 1 month steroid taper and minocycline with out improvement history of multiple hospital admissions (recently at [facility] and was discharged on 05/04 from [facility]) started on vancomycin, zosyn and zithromax ID consulted blood cx NGTD sputum cx respiratory viral panel urine antigens MRSA nasal swab (2) Acute and chronic respiratory failure Current Visit: No Status: Acute Assessment and plan: secondary to above management as per above Qualifiers: Respiratory failure complication: hypoxia and hypercapnia Qualified Code(s): J96.21 - Acute and chronic respiratory failure with hypoxia; J96.22 - Acute and chronic respiratory failure with hypercapnia (3) COPD exacerbation Current Visit: Yes Status: Acute Assessment and plan: started on steroids will continue to taper continues pulse OX oxygen via nasal cannula keep saturation around 92% Duo-neb Abx as above (4) Acquired bronchomalacia Current Visit: No Status: Acute Assessment and plan: as seen on bronchoscopy on April 2018 (5) MYNOR (obstructive sleep apnea) Current Visit: No Status: Acute Assessment and plan: continue with CPAP at nights (6) Pulmonary embolism Current Visit: No Status: Chronic Assessment and plan: will continue xarelto Qualifiers: Pulmonary embolism type: other Chronicity: unspecified Acute cor pulmonale presence: without acute cor pulmonale Qualified Code(s): I26.99 - Other pulmonary embolism without acute cor pulmonale (7) DVT prophylaxis Current Visit: No Status: Acute Assessment and plan: on xarelto (8) Obesity (BMI 30.0-34.9) Current Visit: No Status: Chronic Assessment and plan: nutrition consult - Time Spent With Patient Total time spent is greater than 50% in coordination of care (as documented) at patient's floor/unit and/or counseling patient:
[2018-05-05] MEDS: *HR* Rivaroxaban 10 MG TABLET PO SCH (18:19)
[2018-05-05 19:36] LABS: Adenovirus Not Detected (Not Detect); Bordetella Pertussis Not Detected (Not Detect); Chlamydophila pneumoniae Not Detected (Not Detect); Coronavirus 229E Not Detected (Not Detect); Coronavirus HKU1 Not Detected (Not Detect); Coronavirus NL63 Not Detected (Not Detect); Coronavirus OC43 Not Detected (Not Detect); Human Metapneumovirus Not Detected (Not Detect); Human Rhinovirus/Enterovirus Not Detected (Not Detect); Influenza A Subtype 2009 H1 Not Detected (Not Detect); Influenza A Untypeable Not Detected (Not Detect); Influenza B Not Detected (Not Detect); Mycoplasma pneumoniae Not Detected (Not Detect); Parainfluenza Virus 1 Not Detected (Not Detect); Parainfluenza Virus 2 Not Detected (Not Detect); Parainfluenza Virus 3 Not Detected (Not Detect); Parainfluenza Virus 4 Not Detected (Not Detect); Respiratory Syncytial Virus Not Detected (Not Detect)
[2018-05-05] MEDS: Budesonide/Formoterol 160/4.5 1 PUFF INH IH SCH (20:14)
[2018-05-05] MEDS: Ipratropium/Albuterol Neb 3 ML IH SCH ×2 (20:14→23:59)
[2018-05-05] MEDS: Gabapentin 300 MG CAPSULE PO SCH (20:41)
[2018-05-05] MEDS: Piperacillin/Tazobactam 3.375 GM in 0.9 % Sodium Chloride Mini Bag 100 ML IVPB SCH (20:42)
[2018-05-05] MEDS: Sennosides/Docusate Sodium TABLET PO SCH (20:42)
[2018-05-06] MEDS: MethylPREDNISolone 40 MG/ML VIAL IVP SCH ×4 (00:44→22:43)
[2018-05-06 03:20] LABS: Basophils % 0.1 %; Hematocrit 30.9 % (37.5-50.1); Hemoglobin 9.8 g/dL (12.9-16.9); Immature Granulocytes % 1.1 % (0-4); Lymphocytes # 0.6 K/mcL (0.6-4.6); Lymphocytes % 6.7 %; Mean Corpuscular HGB Conc 31.7 g/dL (31.6-35.5); Mean Corpuscular Hemoglobin 26.7 pg (28.0-33.3); Mean Corpuscular Volume 84.2 fL (83.0-100.0); Mean Platelet Volume 10.4 fL (9.4-12.4); Monocytes # 0.2 K/mcL (0.0-1.3); Monocytes % 2.4 %; Neutrophils # 7.6 K/mcL (1.6-8.9); Platelet Count 190 K/mcL (140-400); Red Blood Count 3.67 M/mcL (4.19-5.50); Segmented Neutrophils % 89.7 %
[2018-05-06] MEDS: Ipratropium/Albuterol Neb 3 ML IH SCH ×6 (03:41→23:51)
[2018-05-06 03:43] LABS: BUN/Creatinine Ratio 34 (6-26); Blood Urea Nitrogen 22 mg/dL (6-20); Calcium 8.4 mg/dL (8.6-10.3); Carbon Dioxide 25 mEq/L (23-29); Chloride 104 mEq/L (98-107); Glucose 212 mg/dL (70-105); Osmolality,Calculated 292 (280-300); Potassium 3.9 mEq/L (3.5-5.1); Sodium 136 mEq/L (136-145); eGFR For Non-African Americans > 60 (> 60)
[2018-05-06] MEDS: Piperacillin/Tazobactam 3.375 GM in 0.9 % Sodium Chloride Mini Bag 100 ML IVPB SCH ×3 (04:11→22:43)
[2018-05-06] MEDS: Fluconazole 100 MG TABLET PO SCH (08:14)
[2018-05-06] MEDS: Furosemide 40 MG TABLET PO SCH ×3 (08:15→16:16)
[2018-05-06] MEDS: Loratadine 10 MG TABLET PO SCH (08:15)
[2018-05-06] MEDS: Gabapentin 300 MG CAPSULE PO SCH ×3 (08:15→20:44)
[2018-05-06] MEDS: Sennosides/Docusate Sodium TABLET PO SCH ×2 (08:15→20:43)
[2018-05-06] MEDS ORDERED: Aminoglycoside Consult 1 EACH MC ONE (08:20)
[2018-05-06] MEDS ORDERED: Azithromycin 500 MG in D5% in Water 250 ML IVPB SCH (09:00)
[2018-05-06] MEDS ORDERED: NON-FORMULARY MEDICATION 1 EACH EACH (Roflumilast [Daliresp] 500 MCG) PO SCH (09:00)
[2018-05-06] MEDS: Budesonide/Formoterol 160/4.5 1 PUFF INH IH SCH ×2 (11:20→19:32)
--- NOTE | 2018-05-06 12:23 | Internal Med Progress Note ---
Hospitalist Progress Note - Encounter Date of Encounter: 05/06/18 Time of Encounter: 08:00 - Subjective Interval History: Patient was seen and examined at bedside. Has no complaints. No overnight events. Tolerating by mouth diet. Reports that his respiratory status is improved since admission. Denies nausea, vomiting, diarrhea, fever or chills. - Exam Vitals: Temp Pulse Resp BP Pulse Ox 97.3 F L 61 16 120/70 98 05/06/18 11:06 05/06/18 11:06 05/06/18 11:21 05/06/18 11:06 05/06/18 11:21 Exam: General: Patient is alert, oriented, no acute distress, disheveled, obese Head: atraumatic, normocephalic, Eye: normal appearance, no scleral icterus, no conjunctival injection ENT: mucous membranes moist, normal external ear exam Neck: normal inspection, trachea midline, full ROM, no carotid bruits Chest: normal inspection, symmetric chest rise Respiratory: Decreased breath sounds bilaterally secondary to body habitus, occasional wheezing in anterior chest, crackles the posterior lung field Cardiovascular: Distant heart sounds secondary to body habitus , Regular rate and rhythm. s1 and s2 No clicks, rubs, gallops, or murmors. Abdomen: Bowel sounds present normoactive x-4 quadrants. Abdomen is soft, nondistended. no Epigastric tenderness. No guarding or rebound. No organomegaly noted, obese musculoskeletal: Spontaneously moving all extremities. no edema, no calf tenderness Skin: warm, dry, intact. Notable ecchymosis in the bilateral upper extremities in different stages of healing. Neuro: Alert and oriented x4. No focal deficit Psych: Patient's affect is normal - Assessment and Plan (1) HAP (hospital-acquired pneumonia) Current Visit: Yes Status: Acute Assessment and Plan: most likley secondary to HAP. has had BAL cultures and multiple other cultures positive with stenotrophomonas maltophilia recently discharged with 1 month steroid taper and minocycline with out improvement history of multiple hospital admissions (recently at [facility] and was discharged on 05/04 from [facility]) on zosyn ID consulted blood cx NGTD sputum cx respiratory viral panel urine antigens - negative so Zithromax was discontinued MRSA nasal swab negative discontinued vancomycin (2) Acute and chronic respiratory failure Current Visit: No Status: Acute Assessment and Plan: secondary to above management as per above (3) COPD exacerbation Current Visit: Yes Status: Acute Assessment and Plan: started on steroids will continue to taper continues pulse OX oxygen via nasal cannula keep saturation around 92% Duo-neb Abx as above (4) Acquired bronchomalacia Current Visit: No Status: Acute Assessment and Plan: as seen on bronchoscopy on April 2018 (5) MYNOR (obstructive sleep apnea) Current Visit: No Status: Acute Assessment and Plan: continue with CPAP at nights (6) Pulmonary embolism Current Visit: No Status: Chronic Assessment and Plan: will continue xarelto (7) DVT prophylaxis Current Visit: No Status: Acute Assessment and Plan: on xarelto (8) Obesity (BMI 30.0-34.9) Current Visit: No Status: Chronic Assessment and Plan: nutrition consult - Time Spent with Patient Total time spent is greater than 50% in coordination of care (as documented) at patient's floor/unit and/or counseling patient: Internal Medicine: Result - Labs CBC & Chem 7: 05/06/18 02:56 05/06/18 02:56 Labs: Short CBC 05/05/18 05/06/18 Range/Units 12:23 02:56 WBC 6.8 8.4 (4.3-11.1) K/mcL Hgb 11.1 L 9.8 L (12.9-16.9) g/dL Hct 35.9 L 30.9 L (37.5-50.1) % Plt Count 212 190 (140-400) K/mcL Neutrophils # 6.0 7.6 (1.6-8.9) K/mcL BMP 05/05/18 05/06/18 12:23 02:56 Sodium 136 136 Potassium 4.1 3.9 Chloride 102 104 Carbon Dioxide 27 25 BUN 16 22 H Creatinine 0.46 L 0.65 L Glucose 114 H 212 H Calcium 8.5 L 8.4 L Cardiac Enzymes 05/05/18 Range/Units 12:23 Troponin I < 0.03 (< 0.04) ng/mL - Impressions Impressions Chest X-Ray 05/05/18 12:23 IMPRESSION: New, mild patchy left basilar airspace disease may reflect atelectasis, though pneumonia cannot be excluded in the correct setting. D/ / 05/05/2018 13:56:02 Catrina Mejias MD / [employer] Interpreting Provider: Catrina Mejias MD Consult Discharge Plan - Plan Referrals: NONE,PCP [Primary Care Provider] - (2) Acute and chronic respiratory failure Qualifiers: Respiratory failure complication: hypoxia and hypercapnia Qualified Code(s): J96.21 - Acute and chronic respiratory failure with hypoxia; J96.22 - Acute and chronic respiratory failure with hypercapnia (6) Pulmonary embolism Qualifiers: Pulmonary embolism type: other Chronicity: unspecified Acute cor pulmonale presence: without acute cor pulmonale Qualified Code(s): I26.99 - Other pulmonary embolism without acute cor pulmonale
[2018-05-06] MEDS: *HR* Rivaroxaban 10 MG TABLET PO SCH (16:16)
[2018-05-07] MEDS: Ipratropium/Albuterol Neb 3 ML IH SCH ×6 (03:30→23:37)
[2018-05-07] MEDS: Piperacillin/Tazobactam 3.375 GM in 0.9 % Sodium Chloride Mini Bag 100 ML IVPB SCH ×3 (04:15→21:55)
[2018-05-07 04:27] LABS: Hematocrit 31.4 % (37.5-50.1); Hemoglobin 9.9 g/dL (12.9-16.9); Mean Corpuscular HGB Conc 31.5 g/dL (31.6-35.5); Mean Corpuscular Hemoglobin 26.9 pg (28.0-33.3); Mean Corpuscular Volume 85.3 fL (83.0-100.0); Platelet Count 189 K/mcL (140-400); Red Blood Count 3.68 M/mcL (4.19-5.50)
[2018-05-07 04:41] LABS: BUN/Creatinine Ratio 34 (6-26); Blood Urea Nitrogen 19 mg/dL (6-20); Calcium 8.5 mg/dL (8.6-10.3); Carbon Dioxide 31 mEq/L (23-29); Chloride 102 mEq/L (98-107); Glucose 246 mg/dL (70-105); Osmolality,Calculated 298 (280-300); Potassium 3.7 mEq/L (3.5-5.1); Sodium 139 mEq/L (136-145); eGFR For Non-African Americans > 60 (> 60)
[2018-05-07] MEDS: Loratadine 10 MG TABLET PO SCH (08:00)
[2018-05-07] MEDS: Furosemide 40 MG TABLET PO SCH ×4 (08:00→16:09)
[2018-05-07] MEDS: MethylPREDNISolone 40 MG/ML VIAL IVP SCH ×4 (08:00→18:45)
[2018-05-07] MEDS: Fluconazole 100 MG TABLET PO SCH ×2 (08:01→11:16)
[2018-05-07] MEDS: Sennosides/Docusate Sodium TABLET PO SCH ×2 (08:01→21:56)
[2018-05-07] MEDS: Gabapentin 300 MG CAPSULE PO SCH ×4 (08:01→21:57)
--- NOTE | 2018-05-07 09:08 | Infectious Disease Consult ---
Date of Encounter: 05/07/18 Time of Encounter: 09:30 Assessment and Plan (1) Sepsis Status: Resolved Assessment and plan: Pt met sepsis criteria on admission on 05/05 with HR 101, RR 24, source of infection. Likely secondary to healthcare associated pneumonia. Cannot rule out intra- abdominal process as well Qualifiers: Sepsis type: sepsis due to unspecified organism Qualified Code(s): A41.9 - Sepsis, unspecified organism (2) Acute and chronic respiratory failure Status: Acute Assessment and plan: Likely secondary to COPD exacerbation and Questionable pneumonia s/p bronchoscopy 04/27/18; BAL grew: Stenotrophomonas maltophilia that is resistant to Bactrim, levofloxacin, ceftazidime and Ticarcillin; susceptible to minocycline. Leticia albicans - Started on minocycline with the plan to treat for 3 weeks through 05/07/2018 Patient came back with severe respiratory symptoms while on minocycline Has tachycardia plus tachypnea on admission. No fever no leukocytosis Chest x-ray 05/05/2018: New mild that she left basilar airspace disease may reflect atelectasis, the pneumonia cannot be excluded in the correct setting Urine legionella and streptococcus negative 05/05/2018 Respiratory infectious panel negative 05/05/2008 MRSA screen negative 05/05/2018 Patient was started on Vanco and Zosyn and azithromycin initially and then switched to Vanco and Zosyn and fluconazole Repeat sputum culture for adequate specimen Obtained CT chest Consult pulmonary Agree with Zosyn. (concern for aspiration) Start minocycline 100 mg by mouth twice a day DC fluconazole Qualifiers: Respiratory failure complication: hypoxia and hypercapnia Qualified Code(s) : J96.21 - Acute and chronic respiratory failure with hypoxia; J96.22 - Acute and chronic respiratory failure with hypercapnia (3) HAP (hospital-acquired pneumonia) Status: Acute Assessment and plan: Pt possibly has HAP due to repeat admissions in last couple months. Secondary to unknown causative organism, 05/05 blood cultures pending. Blood culture 05/05: Pending Urine clean catch 05/05: Negative for Legionella antigen and Negative for S. pneumo antigen Respiratory viral panel: Unremarkable Nasal PCR MRSA screen: Negative Cytopathology 04/30: Left lower lobe bronchial lavage/microbrush/cytobrush - all negative for malignancy Fungal culture 04/27: Leticia albicans Chest x-ray 05/05: new patchy left basilar airspace may reflect atelectasis, pneumonia cannot be excluded Endoscopy 04/27: left lower lobe infiltrate unresolved, bronchomalacia of tracehobronchial tree, thrush in larynx Chest CT 04/11: increased left lower lobe opacity superimposed upon chronic changes likely represents pneumonia Antibiotics received: - Zosyn day 3 - Fluconazole D/C today 05/07 - Vancomycin D/C - Azithromycin D/C Recommendations: - Consult Pulmonology - Order CT Chest with contrast - Restart Minocycline 100 mg PO q12 hrs - Repeat Sputum Culture - Continue Zosyn 3.375 gm IV q8 hrs - D/C Fluconoazole (4) Acquired bronchomalacia Status: Acute Assessment and plan: Endoscopy on 04/27 showed pt has bronchomalacia of tracheobronchial tree This could likely be leading to SOB, difficulty clearing secretions and breeding area for bacterial growth Pt may benefit from tracheobronchial stent placement once infection is cleared and pt is clinically stable. (5) COPD exacerbation Status: Acute Assessment and plan: Pt has his of COPD and COPD exacerbations in the past requiring hospitalization - Methylprednisolone - BiPAP - Antibiotics for possible pneumonia Infectious Disease HPI - Data of Consult Patient: known to practice within the last 3 years Consult date: 05/07/18 Requesting Physician: Lashay Chowdary MD Primary Care Provider: PCP NONE - Consult Narrative Reason for consult: stenotrophomonas maltophilia PNA vs HAP, multiple hospitalizations History of present illness: Mr. Blanchard is a 58 year old male pt that presented to the ED for SOB/dyspnea on 05/05. We are consulted on 05/05 for HAP vs stenotrophomonas maltophilia PNA. 58 y/o M patient has a PMH that includes chronic respiratory failure secondary to COPD. A list of his other PMH problems are listed below. The pt is dependent on nasal cannla O2 at 4L and was transferred from an ECF for SOB/dyspnea. The patient has had multiple hospital admissions within the past month and a half for COPD exacerbations and pneumonia, however the patient keeps returning due to SOB/dyspnea. The patient has had an extensive work up, with his last respiratory culture from 04/27 yielding positive results for Stenotrophomonas maltophilia with resistance to Levofloxacin and TMP/SMX. Sensitives were requested again and organism was sensitive to Minocycline. Pt was discharged on 04/23 with Minocycline 100 mg PO q12hrs for 14 days but presented to ED before completion of this abx course. The pt has been afebrile since admission again on 05/05, but did initially meet sepsis criteria with a HR 101, RR 24, and source of infection. The pts WBC count has been stable, today WBC 8.0. Viral respiratory panel unremarkable. The patient is empirically treated with Methylprednisolone, Azithromycin, Vancomycin, Zosyn, and Fluconazole. Vancomycin and Azithromycin were D/C on 05/06 and given 1 dose of fluconazole on 05/06 (pt refused on 05/07). Since admission, the patient has been afebrile, now hemodynamically stable with HR 76, RR 17. The patient was initially on 4 L NC but switched over to BiPAP. The pt came in with O2 stats at 92% on NC, with BiPAP O2 is at 98% currently. Presenting labs reveal that WBC is 8.0 and it was 6.8 on admission (05/05). Segmented neutrophils 89%. Urine clean catch 05/05 negative for Legionella and S. pneumo. Respiratory viral panel was unremarkable. 05/05 blood cultures pending. 05/05 chest x-ray shows new patchy left basilar airspace which may reflect atelectasis, pneumonia cannot be excluded. Tropnonin I was negative, lactic acid 1.3, BNP 105, Nasal PCR MRSA screen negative. Previous hospital admission on 04/27 respiratory culture was positive for stenotrophomonas maltophilia (resistant to Levofloxacin & TMP-SMX), 04/27 fungal culture positive for leticia albicans with endoscopy (04/27) that showed leticia in larynx, 04/30 cytopathology was negative for malignancy of left lower lobe. 04/11 CT of the chest showed increased left lower lobe opacity superimposed upon chronic changes likely representing pneumonia. Currently, the patient was seen at bedside and seems to be in mild distress. The patient states he does not feel good and because of this he has been refusing his medications. The patient has had 2 episodes of vomiting this morning, with no signs of blood in vomit. CC: Lashay Chowdary MD Past Med Surg Social Fam HX - Past Medical History Medical history: CHF, COPD, hyperlipidemia, hypertension, pulmonary embolus Additional medical history: umbilical hernia Psychiatric history: anxiety, depression - Past Surgical History Surgical History: no surgical history - Social History Smoking Status: Former smoker Smokeless Tobacco Status: No Alcohol use: none Drug use: marijuana - Family History Father Living Status: Hx Family Cancer: Yes (colon) Mother Living Status: Hx Family Cancer: Yes Infectious Disease-CN:Meds RX: Oxygen 4 l NS CONT 07/25/17 [History] RX: Roflumilast [Daliresp] 500 mcg PO DAILY 07/25/17 [History] RX: Loratadine [Claritin] 10 mg PO DAILY #30 tablet 11/09/17 [Rx] RX: Gabapentin [Neurontin] 300 mg PO TID 12/31/17 [History] RX: Albuterol Sulfate [Albuterol Inhaler] 2 puff IH Q4H PRN #1 inhaler 01/17/18 [Rx] RX: Rivaroxaban [Xarelto] 20 mg PO QPM 03/06/18 [History] RX: Potassium Chloride 20 meq PO DAILY #30 tab.er.prt 04/11/18 [Rx] RX: Sennosides/Docusate Sodium [Senna Plus] 2 each PO BID 30 Days #60 tablet 04/23/18 [Rx] RX: Mometasone/Formoterol [Dulera 100 Mcg/5 Mcg Inhaler] 2 puff IH BID 04/25/18 [History] RX: Ipratropium/Albuterol Sulfate [Iprat-Albut 0.5-3(2.5) mg/3 ml] 1 vial IH Q4H #120 04/29/18 [Rx] predniSONE [PredniSONE] 40 mg PO DAILY #35 tablet 04/29/18 [Rx] Omeprazole [PriLOSEC] 20 mg PO DAILY 05/05/18 [History] RX: Fluconazole [Diflucan] 400 mg PO DAILY 05/05/18 [History] RX: Furosemide [Lasix] 20 mg PO TID 05/05/18 [History] Allergy/AdvReac Type Severity Reaction Status Date / Time levofloxacin AdvReac See Verified 05/05/18 16:16 Comments Review of systems: 10 point review of systems done, negative other for what is mentioned in history of present illness Exam - Constitutional Vitals: Temp Pulse Resp BP Pulse Ox 97.6 F 65 17 119/64 97 05/07/18 03:54 05/07/18 06:32 05/07/18 07:40 05/07/18 07:40 05/07/18 07:40 - Additional findings Additional findings: General A&Ox3, mild distress, obese Constitutional: no fever, chills, weight changes HEENT: atraumatic, normocephalic, normal inspection Neck: no lymphadenopathy, large neck circumference Respiratory: distant breath sounds, poor inspiratory effort; no wheezing. chest expanding symmetrically Cardiovascular: distant heart sounds, barrel chest due to COPD GI: bowel sounds present, no tenderness on palpation Extremities: 2+ pulses UE, diminished pulses LE Psychiatric: normal affect Skin: normal color, significant tattoes, ecchymoses on dorsal aspect of hands and forearms Infectious Disease CN: Results - Labs CBC & Chem 7: 05/07/18 04:00 05/07/18 04:00 Cultures: Cultures 05/05/18 20:00 Legionella Antigen - Final Urine,Clean Catch Streptococcus pneumoniae Antigen (M - Final 05/05/18 18:50 Sputum Culture - Final Sputum 05/05/18 14:58 Blood Culture - Preliminary Peripheral Venipuncture Culture is incubating and being continuously monitored for growth. Final report to follow. 05/05/18 14:50 Blood Culture - Preliminary Peripheral Venipuncture Culture is incubating and being continuously monitored for growth. Final report to follow. Serology: Serology 05/06/18 05/05/18 05/05/18 Range/Units 12:06 18:25 18:25 Nasal Screen MRSA (PCR) Negative (Negative) Chlamy pneumoniae PCR Not Detected (Not Detect) Adenovirus (PCR) Not Detected (Not Detect) B. pertussis DNA (PCR) Not Detected (Not Detect) B.parapertussis DNA PCR Not Detected (Not Detect) Coronavirus OC43 (PCR) Not Detected (Not Detect) Coronavirus HKU1 (PCR) Not Detected (Not Detect) Coronavirus 229E (PCR) Not Detected (Not Detect) Coronavirus NL63 (PCR) Not Detected (Not Detect) HIV Ag/Ab Combo Qual Nonreactive (Nonreactive) Human Metapneumovir PCR Not Detected (Not Detect) Influenza A (H1) PCR Not Detected (Not Detect) Influ A (H1N1/09) PCR Not Detected (Not Detect) Influenza A (H3) PCR Not Detected (Not Detect) Influenza A Untype (PCR) Not Detected (Not Detect) Influenza Type B (PCR) Not Detected (Not Detect) M.pneumoniae DNA (PCR) Not Detected (Not Detect) Parainfluenza 1 (PCR) Not Detected (Not Detect) Parainfluenza 2 (PCR) Not Detected (Not Detect) Parainfluenza 3 (PCR) Not Detected (Not Detect) Parainfluenza 4 (PCR) Not Detected (Not Detect) RSV (PCR) Not Detected (Not Detect) Entero/Rhino (PCR) Not Detected (Not Detect) Consult Discharge Plan - Plan Referrals: NONE,PCP [Primary Care Provider] - - Attending Attestation I examined this patient and my medical decision-making was reviewed with the Resident Physician. I agree with the documented findings, disposition and treatment plan as described except to the extent set forth below. This is an addendum to original report dictated by medical student. Physical exam written by me Review of system reviewed by me Assessment and plan reviewed by me Continue Zosyn Start minocycline Stop fluconazole Get a CT chest Get sputum culture Consult pulmonary Prognosis is very poor
--- NOTE | 2018-05-07 10:25 | Internal Med Progress Note ---
Hospitalist Progress Note - Encounter Date of Encounter: 05/07/18 Time of Encounter: 08:00 - Subjective Interval History: Patient was seen and examined at bedside. Has no complaints. No overnight events. Tolerating by mouth diet. Reports that his respiratory status is improved since admission. Denies nausea, vomiting, diarrhea, fever or chills. CP, palpitations - Exam Vitals: Temp Pulse Resp BP Pulse Ox 98.2 F 76 17 124/64 92 05/07/18 10:18 05/07/18 10:18 05/07/18 10:18 05/07/18 10:18 05/07/18 10:18 Exam: General: Patient is alert, oriented, no acute distress, disheveled, obese Head: atraumatic, normocephalic, Eye: normal appearance, no scleral icterus, no conjunctival injection ENT: mucous membranes moist, normal external ear exam Neck: normal inspection, trachea midline, full ROM, no carotid bruits Chest: normal inspection, symmetric chest rise Respiratory: Decreased breath sounds bilaterally secondary to body habitus, occasional wheezing in anterior chest, crackles the posterior lung field Cardiovascular: Distant heart sounds secondary to body habitus , Regular rate and rhythm. s1 and s2 No clicks, rubs, gallops, or murmors. Abdomen: Bowel sounds present normoactive x-4 quadrants. Abdomen is soft, nondistended. no Epigastric tenderness. No guarding or rebound. No organomegaly noted, obese musculoskeletal: Spontaneously moving all extremities. no edema, no calf tenderness Skin: warm, dry, intact. Notable ecchymosis in the bilateral upper extremities in different stages of healing. Neuro: Alert and oriented x4. No focal deficit Psych: Patient's affect is normal - Assessment and Plan (1) HAP (hospital-acquired pneumonia) Current Visit: Yes Status: Acute Assessment and Plan: most likely secondary to HAP. has had BAL cultures and multiple other cultures positive with stenotrophomonas maltophilia recently discharged with 1 month steroid taper and minocycline with out improvement history of multiple hospital admissions (recently at [facility] and was discharged on 05/04 from [facility]) on zosyn ID consulted blood cx NGTD sputum cx respiratory viral panel urine antigens - negative so Zithromax was discontinued MRSA nasal swab negative discontinued vancomycin (2) Acute and chronic respiratory failure Current Visit: No Status: Acute Assessment and Plan: secondary to above management as per above (3) COPD exacerbation Current Visit: Yes Status: Acute Assessment and Plan: started on steroids will continue to taper continues pulse OX oxygen via nasal cannula keep saturation around 92% Duo-neb Abx as above (4) Acquired bronchomalacia Current Visit: No Status: Acute Assessment and Plan: as seen on bronchoscopy on April 2018 (5) MYNOR (obstructive sleep apnea) Current Visit: No Status: Acute Assessment and Plan: continue with CPAP at nights (6) Pulmonary embolism Current Visit: No Status: Chronic Assessment and Plan: will continue xarelto (7) DVT prophylaxis Current Visit: No Status: Acute Assessment and Plan: on xarelto (8) Obesity (BMI 30.0-34.9) Current Visit: No Status: Chronic Assessment and Plan: nutrition consult - Time Spent with Patient Total time spent is greater than 50% in coordination of care (as documented) at patient's floor/unit and/or counseling patient: Internal Medicine: Result - Labs CBC & Chem 7: 05/07/18 04:00 05/07/18 04:00 Labs: Short CBC 05/07/18 Range/Units 04:00 WBC 8.0 (4.3-11.1) K/mcL Hgb 9.9 L (12.9-16.9) g/dL Hct 31.4 L (37.5-50.1) % Plt Count 189 (140-400) K/mcL BMP 05/07/18 04:00 Sodium 139 Potassium 3.7 Chloride 102 Carbon Dioxide 31 H BUN 19 Creatinine 0.56 L Glucose 246 H Calcium 8.5 L Consult Discharge Plan - Plan Referrals: NONE,PCP [Primary Care Provider] - (2) Acute and chronic respiratory failure Qualifiers: Respiratory failure complication: hypoxia and hypercapnia Qualified Code(s): J96.21 - Acute and chronic respiratory failure with hypoxia; J96.22 - Acute and chronic respiratory failure with hypercapnia (6) Pulmonary embolism Qualifiers: Pulmonary embolism type: other Chronicity: unspecified Acute cor pulmonale presence: without acute cor pulmonale Qualified Code(s): I26.99 - Other pulmonary embolism without acute cor pulmonale
[2018-05-07] MEDS: Budesonide/Formoterol 160/4.5 1 PUFF INH IH SCH ×2 (11:12→19:28)
--- NOTE | 2018-05-07 14:45 | Electrocardiograph Report ---
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
[2018-05-07] MEDS ORDERED: Isovue-370 500 ML INFUS..BTL IV ONE (15:47)
[2018-05-07] MEDS: *HR* Rivaroxaban 10 MG TABLET PO SCH (16:09)
[2018-05-08] MEDS: Ipratropium/Albuterol Neb 3 ML IH SCH ×6 (03:26→23:01)
[2018-05-08 04:29] LABS: Hematocrit 33.4 % (37.5-50.1); Hemoglobin 10.4 g/dL (12.9-16.9); Mean Corpuscular HGB Conc 31.1 g/dL (31.6-35.5); Mean Corpuscular Hemoglobin 26.7 pg (28.0-33.3); Mean Corpuscular Volume 85.6 fL (83.0-100.0); Mean Platelet Volume 10.6 fL (9.4-12.4); Platelet Count 170 K/mcL (140-400); Red Cell Distribution Width 16.2 % (11.5-14.5)
[2018-05-08 04:50] LABS: BUN/Creatinine Ratio 52 (6-26); Blood Urea Nitrogen 22 mg/dL (6-20); Calcium 8.2 mg/dL (8.6-10.3); Carbon Dioxide 29 mEq/L (23-29); Chloride 102 mEq/L (98-107); Glucose 171 mg/dL (70-105); Osmolality,Calculated 295 (280-300); Potassium 3.3 mEq/L (3.5-5.1); Sodium 139 mEq/L (136-145); eGFR For Non-African Americans > 60 (> 60)
[2018-05-08] MEDS: Piperacillin/Tazobactam 3.375 GM in 0.9 % Sodium Chloride Mini Bag 100 ML IVPB SCH ×3 (05:03→20:56)
[2018-05-08] MEDS: MethylPREDNISolone 40 MG/ML VIAL IVP SCH ×2 (05:03→17:28)
[2018-05-08] MEDS: Budesonide/Formoterol 160/4.5 1 PUFF INH IH SCH ×2 (07:31→19:21)
--- NOTE | 2018-05-08 08:23 | Pulmonology Consult Note ---
<Nalini Trivedi N - Last Filed: 05/08/18 10:45> Date of Encounter: 05/08/18 Time of Encounter: 08:23 Assessment and Plan (1) Pneumonia Current Visit: Yes Status: Acute Likely secondary to persistent Stenotrophomonas infection, though concern for hospital-acquired pneumonia in light of patient's numerous recent hospitalizations. Patient did meet sepsis criteria at the time of hospital admission, with tachypnea, tachycardia, and a source of infection. This has since resolved, with vital signs and WBC count WNL. Patient denies any fevers or chills. CXR on 05/05/2018 demonstrated New, mild patchy left basilar airspace disease may reflect atelectasis, though pneumonia cannot be excluded in the correct setting. Chest CT on 05/07/2018, which showed emphysema/COPD and clearing of previously seen left lower lobe airspace disease. Patient was started on antimicrobial therapy with minocycline prior to discharge from his last hospitalization, and reports that he has been compliant with therapy. Plan: - Continue antimicrobial therapy with zosyn and minocycline per ID recommendations - Repeat sputum culture pending - Repeat CBC and electrolyte panels with morning laboratory studies - Serum IgG, IgA, and IgM levels pending Qualifiers: Pneumonia type: due to other aerobic Gram-negative bacteria Laterality: left Lung location: lower lobe of lung Qualified Code(s): J15.6 - Pneumonia due to other Gram-negative bacteria (2) COPD exacerbation Current Visit: Yes Status: Acute Patient complains of shortness of breath and feeling like he cannot get enough air. CT scan demonstrated evidence of COPD/emphysema. Plan: - Continue IV solumedrol 40mg Q12H - Continue duonebs Q4H scheduled - Continue symbicort (3) Veixw-we-[id number] respiratory failure Current Visit: Yes Status: Acute Suspect secondary to pneumonia and COPD exacerbation. See above for management plan. Qualifiers: Respiratory failure complication: hypoxia and hypercapnia Qualified Code(s): J96.21 - Acute and chronic respiratory failure with hypoxia; J96.22 - Acute and chronic respiratory failure with hypercapnia (4) Chronic respiratory failure with hypoxia Current Visit: Yes Status: Chronic (5) MYNOR (obstructive sleep apnea) Current Visit: Yes Status: Chronic - BiPAP at night and during naps. (6) Choking sensation Current Visit: Yes Status: Acute Patient reports a choking sensation at times with is associated with increased shortness of breath. - Consider ENT consult to evaluate for vocal cord dysfunction History of Present Illness Consult date: 05/08/18 Requesting physician: Lashay Chowdary Reason for consult: other (Multiple admissions, prior BAL cultures positive for Stentotrophomonas) Chief complaint: Shortness of breath History of present illness: Mr. Blanchard is a 58-year old male with a history of chornic hypoxic respiratory failure, diastolic CHF, COPD, hypertension, hyperlipidemia, and acquired bronchomalacia. He has had numerous hospitalizations recently for respiratory issues, and underwent bronchoscopy on 04/27/2018, on which he was found to have bronchomalacia. Cultures obtained during bronchoscopy demonstrated growth of Stenotrophomonas maltophilia and Leticia albicans. Patient was discharged from the hospital on 04/29/2018 with continued minocycline therapy. Patient states that he initially was able to breath easier after the bronchoscopy; however, he soon began experiencing shortness of breath. He was evaluated at [facility] last week, where he states he received treatment for a COPD exacerbation with antibiotics and a course of oral steroids. He states that his symptoms did not improve, prompting his arrival at the [facility] ED on 05/05/2018. CXR was concerning for left lower lobe pneumonia, and patient was started on antimicrobial therapy pending ID consult. He is currently receiving minocycline and zosyn per infectious disease recommendations. Patient was seen and evaluated at the bedside. He denies any fevers, chills, cough, sputum production, or recent sick contacts. He denies nausea, but did have some episodes of vomiting, with his last emesis occurring yesterday. He reports compliance with BiPAP therapy while at home. wearing it at night and during naps, and notes that it does improve his symptoms a bit. He denies any other acute complaints or concerns at this time. Past Med Surg Social Fam HX - Past Medical History Medical history: CHF, COPD, hyperlipidemia, hypertension, pulmonary embolus Additional medical history: umbilical hernia Psychiatric history: anxiety, depression - Past Surgical History Surgical History: no surgical history - Social History Smoking Status: Former smoker Smokeless Tobacco Status: No Alcohol use: none Drug use: marijuana - Family History Father Living Status: Hx Family Cancer: Yes (colon) Mother Living Status: Hx Family Cancer: Yes Medications and Allergies Oxygen 4 l NS CONT 07/25/17 [History] Roflumilast [Daliresp] 500 mcg PO DAILY 07/25/17 [History] Loratadine [Claritin] 10 mg PO DAILY #30 tablet 11/09/17 [Rx] Gabapentin [Neurontin] 300 mg PO TID 12/31/17 [History] Albuterol Sulfate [Albuterol Inhaler] 2 puff IH Q4H PRN #1 inhaler 01/17/18 [Rx] Rivaroxaban [Xarelto] 20 mg PO QPM 03/06/18 [History] Potassium Chloride 20 meq PO DAILY #30 tab.er.prt 04/11/18 [Rx] Sennosides/Docusate Sodium [Senna Plus] 2 each PO BID 30 Days #60 tablet 04/23/18 [Rx] Mometasone/Formoterol [Dulera 100 Mcg/5 Mcg Inhaler] 2 puff IH BID 04/25/18 [History] Ipratropium/Albuterol Sulfate [Iprat-Albut 0.5-3(2.5) mg/3 ml] 1 vial IH Q4H #120 04/29/18 [Rx] predniSONE [PredniSONE] 40 mg PO DAILY #35 tablet 04/29/18 [Rx] Fluconazole [Diflucan] 400 mg PO DAILY 05/05/18 [History] Furosemide [Lasix] 20 mg PO TID 05/05/18 [History] Omeprazole [PriLOSEC] 20 mg PO DAILY 05/05/18 [History] Allergy/AdvReac Type Severity Reaction Status Date / Time levofloxacin AdvReac See Verified 05/05/18 16:16 Comments All Systems: The remainder of the systems were reviewed and are negative - Constitutional Constitutional: no chills, no fever(s), no night sweats - EENT Nose, mouth and throat: no nasal congestion, no nasal discharge, no post-nasal drip, no sinus pain, no sinus pressure - Respiratory Respiratory: dyspnea, dyspnea on exertion, no cough, no hemoptysis, no excessive phlegm production - Gastrointestinal Gastrointestinal: abdominal pain (Mild intermittent discomfort near umbelical hernia), vomiting (Last emesis yesterday), no loose stools, no nausea Physical Examination Vital Signs: Vital Signs, Last 4 Hours Temp Pulse Resp BP Pulse Ox 05/08/18 07:31 11 96 05/08/18 07:00 97.6 F 60 14 119/75 98 05/08/18 04:46 97.7 F 70 14 121/71 99 General appearance: no acute distress Eyes: nonicteric ENT: oropharynx moist Effort: mildly labored Inspection: normal Auscultation: bilateral: diminished breath sounds, rhonchi Cardiovascular: regular rate and rhythm Gastrointestinal: soft, tender (Mild tenderness around umbelical hernia) Integumentary: normal Extremities: no cyanosis, no edema, no clubbing normal mental status mood appropriate, affect normal Results - Laboratory Findings CBC and BMP: 05/08/18 04:10 05/08/18 04:10 Abnormal lab findings: Abnormal lab results RBC 3.90 M/mcL (4.19-5.50) L 05/08/18 04:10 Hgb 10.4 g/dL (12.9-16.9) L 05/08/18 04:10 Hct 33.4 % (37.5-50.1) L 05/08/18 04:10 MCH 26.7 pg (28.0-33.3) L 05/08/18 04:10 MCHC 31.1 g/dL (31.6-35.5) L 05/08/18 04:10 RDW 16.2 % (11.5-14.5) H 05/08/18 04:10 Potassium 3.3 mEq/L (3.5-5.1) L 05/08/18 04:10 BUN 22 mg/dL (6-20) H 05/08/18 04:10 Creatinine 0.42 mg/dL (0.70-1.30) L 05/08/18 04:10 BUN/Creatinine Ratio 52 (6-26) H 05/08/18 04:10 Glucose 171 mg/dL (70-105) H 05/08/18 04:10 Calcium 8.2 mg/dL (8.6-10.3) L 05/08/18 04:10 B-Natriuretic Peptide 105 pg/mL (Less than 100) H 05/05/18 12:30 - Clinical Findings Intake & Output: Intake & Output 05/07/18 05/08/18 05/08/18 23:59 07:59 15:59 Intake Total 100 / 100 100 / 100 Output Total 200 / 200 Balance -100 / -100 100 / 100 Weight 96.3 kg Consult Discharge Plan - Plan Referrals: NONE,PCP [Primary Care Provider] - <Richard Skinner - Last Filed: 05/08/18 11:45> Date of Encounter: 05/08/18 All Systems: The remainder of the systems were reviewed and are negative Physical Examination Vital Signs: Vital Signs, Last 4 Hours Resp Pulse Ox 05/08/18 11:17 12 95 Results - Laboratory Findings CBC and BMP: 05/08/18 04:10 05/08/18 04:10 Abnormal lab findings: Abnormal lab results RBC 3.90 M/mcL (4.19-5.50) L 05/08/18 04:10 Hgb 10.4 g/dL (12.9-16.9) L 05/08/18 04:10 Hct 33.4 % (37.5-50.1) L 05/08/18 04:10 MCH 26.7 pg (28.0-33.3) L 05/08/18 04:10 MCHC 31.1 g/dL (31.6-35.5) L 05/08/18 04:10 RDW 16.2 % (11.5-14.5) H 05/08/18 04:10 Potassium 3.3 mEq/L (3.5-5.1) L 05/08/18 04:10 BUN 22 mg/dL (6-20) H 05/08/18 04:10 Creatinine 0.42 mg/dL (0.70-1.30) L 05/08/18 04:10 BUN/Creatinine Ratio 52 (6-26) H 05/08/18 04:10 Glucose 171 mg/dL (70-105) H 05/08/18 04:10 Calcium 8.2 mg/dL (8.6-10.3) L 05/08/18 04:10 B-Natriuretic Peptide 105 pg/mL (Less than 100) H 05/05/18 12:30 - Clinical Findings Intake & Output: Intake & Output 05/07/18 05/08/18 05/08/18 23:59 07:59 15:59 Intake Total 100 / 100 100 / 100 340 / 340 Output Total 200 / 200 500 / 500 Balance -100 / -100 100 / 100 -160 / -160 Weight 96.3 kg - Attending Attestation I examined this patient and my medical decision-making was reviewed with the Resident Physician. I agree with the documented findings, disposition and treatment plan as described except to the extent set forth below. We independently had [id number] contact with the patient Patient seen and examined at bedside Labs, radiology, chart personally reviewed. Impression: * Chronic hypoxic respiratory failure * COPD exacerbation * Stenotrophomonas pneumonia * MYNOR * Choking Sensation Very difficult situation. Recurrent COPD exacerbations requiring hospitalizations on nearly weekly basis. This is in large part complicated and precipitated by stenotrophomonas infection which is being treated and further complicated by underlying bronchomalacia. Plan: -Doubt additional infection outside a stenotrophomonas would tailor antibiotics to treat this per ID recommendations -Continue clinical management of COPD exacerbation including IV steroids to transition to by mouth for prolonged taper cont scheduled bronchodilators and Symbicort -Continue positive airway pressure to help with work of breathing as well as during sleep for sleep disordered breathing -Would also send immunoglobulin panel to rule out immunodeficiency -Given choking sensation and it is worthwhile for ENT to evaluate for vocal cord dysfunction as precipitant for exacerbation of course even if this is diagnosed that treatment is not usually straightforward but may help with the prognostic implications - Overall prognosis is poor given symptom chronicity. Patient should consider palliative care consultation versus second opinion in [place] or [place]. Please Call with Questions
[2018-05-08] MEDS: Sennosides/Docusate Sodium TABLET PO SCH ×2 (08:25→21:05)
[2018-05-08] MEDS: Furosemide 40 MG TABLET PO SCH ×3 (08:26→16:04)
[2018-05-08] MEDS: Gabapentin 300 MG CAPSULE PO SCH ×3 (08:26→21:05)
[2018-05-08] MEDS: Loratadine 10 MG TABLET PO SCH (08:26)
--- NOTE | 2018-05-08 09:14 | Infectious Disease Progress No ---
Date of Encounter: 05/08/18 Time of Encounter: 08:45 - Assessment and Plan (1) Sepsis Current Visit: No Status: Resolved Pt met sepsis criteria on admission on 05/05 - HR 101, RR 24, source of infection Likely secondary to healthcare associated pneumonia. Cannot rule out intra-abdominal process as well The pt does not currently meet sepsis criteria. - WBC 6.1, T976, HR60, RR14 (today 05/08) - WBC 8.0 T97.7, HR65, RR18 (05/07) Today BUN 22 (yest 19), Cr 0.42 (yest 0.56) Creatinine clearance 209 ml/min Troponin I < 0.03 (05/05) BNP 105 (05/05) Qualifiers: Sepsis type: sepsis due to unspecified organism Qualified Code(s): A41.9 - Sepsis, unspecified organism (2) Acute and chronic respiratory failure Current Visit: Yes Status: Acute Likely secondary to COPD exacerbation and possible pneumonia (less likely based on most recent Chest CT results 05/07) The pt does not currently meet sepsis criteria. - WBC 6.1, T976, HR60, RR14 (today 05/08) - WBC 8.0 T97.7, HR65, RR18 (05/07) Today BUN 22 (yest 19), Cr 0.42 (yest 0.56) Creatinine clearance 209 ml/min Troponin I < 0.03 (05/05) BNP 105 (05/05) Bronchoscopy 04/27: Bronchoalveolar lavage grew Stenotrophomonas maltophilia - Resistant to TMP-SMX (Bactrim), Levofloxacin, Ceftazidime, and Ticarcillin - Susceptible to Minocycline Fungal culture 04/27: Leticia albicans Urine clean catch 05/05: Negative for Legionella & S. pneumo Respiratory viral panel 05/05: Negative MRSA screen 05/05: Negative On pts previous hospital admission he was discharged with a 14 day course of Minocycline 100 mg PO q12 hrs that was supposed to be completed by 05/07/18. The patient was readmitted on 05/05 due to SOB/dyspnea and severe respiratory symptoms while being on a Minocycline abx regiment. On admission the patient was tachycardic and tachypneic, afebrile with no signs of leukocytosis Chest x-ray 05/05: New patchy left basilar airspace which may reflect atelecta sis, pneumonia cannot be excluded in the correct setting CT Chest 04/11: most recent prior CT findings of increased left lower lobe opacity superimposed upon chronic changes likely represents pneumonia CT Chest 05/07: Emphysema/COPD. Clearing or previously seen left lower lobe airspace disease Pt was initially started on Vancomycin, Zosyn, and Azithromycin and then switched over to Vancomycin, Zosyn, and Fluconazole. Later, Vancomycin and Fluconazole were discontinued, added minocycline on 05/07 Antibiotics received: - Zosyn 3.375 gm IV q8hrs (day 4) - Minocycline 100 mg PO q12hrs (day 1) Recommendations: - Repeat sputum culture for adequate specimen - Continue Zosyn 3.375 gm IV q8hrs - Continue Minocycline 100 mg PO q12hrs Qualifiers: Respiratory failure complication: hypoxia and hypercapnia Qualified Code(s): J96.21 - Acute and chronic respiratory failure with hypoxia; J96.22 - Acute and chronic respiratory failure with hypercapnia (3) HAP (hospital-acquired pneumonia) Current Visit: Yes Status: Acute Pts presentation initially was thought to be possible HAP, however this seems less likely per most recent chest CT on 05/07 that did not show any signs of consolidation or infiltrates, there are signs of clearing of previously seen airspace disease. Blood culture 05/05: Pending Urine clean catch 05/05: Negative for Legionella antigen and Negative for S. pneumo antigen Respiratory viral panel 05/05: Unremarkable Nasal PCR MRSA screen: Negative Cytopathology 04/30: Left lower lobe bronchial lavage/microbrush/cytobrush - all negative for malignancy Fungal culture 04/27: Leticia albicans Chest x-ray 05/05: new patchy left basilar airspace may reflect atelectasis, pneumonia cannot be excluded Endoscopy 04/27: left lower lobe infiltrate unresolved, bronchomalacia of tracehobronchial tree, thrush in larynx Chest CT 04/11: increased left lower lobe opacity superimposed upon chronic changes likely represents pneumonia Chest CT 05/07: Emphysema/COPD. Clearing or previously seen left lower lobe airspace disease. Antibiotics received: - Zosyn day 4 - Minocycline day 1 Recommendations: - Repeat sputum culture for adequate specimen - Continue Zosyn 3.375 gm IV q8hrs - Continue Minocycline 100 mg PO q12hrs (4) Acquired bronchomalacia Current Visit: No Status: Acute Endoscopy on 04/27 showed pt has bronchomalacia of tracheobronchial tree This could likely be leading to SOB, difficulty clearing secretions and breeding area for bacterial growth Pt may benefit from tracheobronchial stent placement once infection is cleared and pt is clinically stable. (5) COPD exacerbation Current Visit: Yes Status: Acute Pt has his of COPD and COPD exacerbations in the past requiring hospitalization - Methylprednisolone - BiPAP - Antibiotics for possible pneumonia - Subjective Interval history: Pt was seen at bedside. He did not have any acute changes overnight. The patient has not had any other vomiting episodes besides the two from yesterday. The patient seems to feel better overall with no complaints of chest pain, increased or worsening SOB, or abdominal pain. The patient also had a bowel movement after 2 days of constipation. Infect Dis PN-Objective Data - Labs CBC & Chem 7: 05/09/18 06:00 05/09/18 06:00 Labs: Laboratory Results - last 24 hr 05/08/18 05/08/18 04:10 04:10 WBC 6.1 RBC 3.90 L Hgb 10.4 L Hct 33.4 L MCV 85.6 MCH 26.7 L MCHC 31.1 L RDW 16.2 H Plt Count 170 MPV 10.6 Sodium 139 Potassium 3.3 L Chloride 102 Carbon Dioxide 29 BUN 22 H Creatinine 0.42 L Est GFR ( Amer) > 60 Est GFR (Non-Af Amer) > 60 BUN/Creatinine Ratio 52 H Glucose 171 H Calculated Osmolality 295 Calcium 8.2 L Cultures: Cultures 05/05/18 20:00 Legionella Antigen - Final Urine,Clean Catch Streptococcus pneumoniae Antigen (M - Final 05/05/18 18:50 Sputum Culture - Final Sputum 05/05/18 14:58 Blood Culture - Preliminary Peripheral Venipuncture Culture is incubating and being continuously monitored for growth. Final report to follow. 05/05/18 14:50 Blood Culture - Preliminary Peripheral Venipuncture Culture is incubating and being continuously monitored for growth. Final report to follow. Serology 05/06/18 05/05/18 05/05/18 Range/Units 12:06 18:25 18:25 Nasal Screen MRSA (PCR) Negative (Negative) Chlamy pneumoniae PCR Not Detected (Not Detect) Adenovirus (PCR) Not Detected (Not Detect) B. pertussis DNA (PCR) Not Detected (Not Detect) B.parapertussis DNA PCR Not Detected (Not Detect) Coronavirus OC43 (PCR) Not Detected (Not Detect) Coronavirus HKU1 (PCR) Not Detected (Not Detect) Coronavirus 229E (PCR) Not Detected (Not Detect) Coronavirus NL63 (PCR) Not Detected (Not Detect) HIV Ag/Ab Combo Qual Nonreactive (Nonreactive) Human Metapneumovir PCR Not Detected (Not Detect) Influenza A (H1) PCR Not Detected (Not Detect) Influ A (H1N1/09) PCR Not Detected (Not Detect) Influenza A (H3) PCR Not Detected (Not Detect) Influenza A Untype (PCR) Not Detected (Not Detect) Influenza Type B (PCR) Not Detected (Not Detect) M.pneumoniae DNA (PCR) Not Detected (Not Detect) Parainfluenza 1 (PCR) Not Detected (Not Detect) Parainfluenza 2 (PCR) Not Detected (Not Detect) Parainfluenza 3 (PCR) Not Detected (Not Detect) Parainfluenza 4 (PCR) Not Detected (Not Detect) RSV (PCR) Not Detected (Not Detect) Entero/Rhino (PCR) Not Detected (Not Detect) Repeat sputum culture for adequate specimen still pending. - Impressions Impressions Chest CT 05/07/18 19:30 IMPRESSION: Emphysema/COPD. Clearing or previously seen left lower lobe airspace disease. D/ / Martinez Zuluaga MD / Martinez Zuluaga MD Interpreting Provider: Martinez Zuluaga MD Exam - Constitutional Vitals: Temp Pulse Resp BP Pulse Ox 97.6 F 60 11 119/75 96 05/08/18 07:00 05/08/18 07:00 05/08/18 07:31 05/08/18 07:00 05/08/18 07:31 - Additional findings Additional findings: General A&Ox3, mild distress, obese Constitutional: no fever, chills, weight changes HEENT: atraumatic, normocephalic, normal inspection Neck: no lymphadenopathy, large neck circumference Respiratory: distant breath sounds, poor inspiratory effort; slight wheezing left lung base, chest expanding symmetrically Cardiovascular: distant heart sounds, barrel chest due to COPD GI: bowel sounds present, no tenderness on palpation, umbilical hernia palpated Extremities: 2+ pulses UE, diminished pulses LE Psychiatric: normal affect Skin: normal color, significant tattoes, ecchymoses on dorsal aspect of hands and forearms Consult Discharge Plan - Plan Referrals: NONE,PCP [Primary Care Provider] - - Attending Attestation I examined this patient and my medical decision-making was reviewed with the Resident Physician. I agree with the documented findings, disposition and treatment plan as described except to the extent set forth below.
--- NOTE | 2018-05-08 14:39 | Internal Med Progress Note ---
Hospitalist Progress Note - Encounter Date of Encounter: 05/08/18 Time of Encounter: 08:00 - Subjective Interval History: Patient was seen and examined at bedside. Has no complaints. No overnight events. Tolerating by mouth diet. does not want to be bothered. denies N/v/D. is inquiring about being discharged. - Exam Vitals: Temp Pulse Resp BP Pulse Ox 97.8 F 75 16 110/65 96 05/08/18 12:04 05/08/18 12:04 05/08/18 12:04 05/08/18 12:04 05/08/18 12:04 Exam: General: Patient is alert, oriented, no acute distress, disheveled, obese Head: atraumatic, normocephalic, Eye: normal appearance, no scleral icterus, no conjunctival injection ENT: mucous membranes moist, normal external ear exam Neck: normal inspection, trachea midline, full ROM, no carotid bruits Chest: normal inspection, symmetric chest rise Respiratory: Decreased breath sounds bilaterally secondary to body habitus, occasional wheezing in anterior chest, crackles the posterior lung field (improved) Cardiovascular: Distant heart sounds secondary to body habitus , Regular rate and rhythm. s1 and s2 No clicks, rubs, gallops, or murmors. Abdomen: Bowel sounds present normoactive x-4 quadrants. Abdomen is soft, nondistended. no Epigastric tenderness. No guarding or rebound. No organomegaly noted, obese musculoskeletal: Spontaneously moving all extremities. no edema, no calf tenderness Skin: warm, dry, intact. Notable ecchymosis in the bilateral upper extremities in different stages of healing. Neuro: Alert and oriented x4. No focal deficit Psych: Patient's affect is normal - Assessment and Plan (1) HAP (hospital-acquired pneumonia) Current Visit: Yes Status: Acute Assessment and Plan: most likely secondary to HAP. has had BAL cultures and multiple other cultures positive with stenotrophomonas maltophilia recently discharged with 1 month steroid taper and minocycline with out improvement history of multiple hospital admissions (recently at [facility] and was discharged on 05/04 from [place]) on zosyn and minocycline ID recs appreciated blood cx NGTD sputum cx respiratory viral panel urine antigens - negative so Zithromax was discontinued MRSA nasal swab negative discontinued vancomycin CT chest: IMPRESSION: Emphysema/COPD. Clearing or previously seen left lower lobe airspace disease. (2) Acute and chronic respiratory failure Current Visit: Yes Status: Acute Assessment and Plan: secondary to above management as per above pulm consulted will follow recs (3) COPD exacerbation Current Visit: Yes Status: Acute Assessment and Plan: started on steroids will continue to taper continues pulse OX oxygen via nasal cannula keep saturation around 92% Duo-neb Abx as above (4) Acquired bronchomalacia Current Visit: No Status: Acute Assessment and Plan: as seen on bronchoscopy on April 2018 (5) MYNOR (obstructive sleep apnea) Current Visit: Yes Status: Chronic Assessment and Plan: continue with CPAP at nights (6) Pulmonary embolism Current Visit: No Status: Chronic Assessment and Plan: will continue xarelto (7) DVT prophylaxis Current Visit: No Status: Acute Assessment and Plan: on xarelto (8) Obesity (BMI 30.0-34.9) Current Visit: No Status: Chronic Assessment and Plan: nutrition consult - Time Spent with Patient Total time spent is greater than 50% in coordination of care (as documented) at patient's floor/unit and/or counseling patient: Internal Medicine: Result - Labs CBC & Chem 7: 05/08/18 04:10 05/08/18 04:10 Labs: Short CBC 05/08/18 Range/Units 04:10 WBC 6.1 (4.3-11.1) K/mcL Hgb 10.4 L (12.9-16.9) g/dL Hct 33.4 L (37.5-50.1) % Plt Count 170 (140-400) K/mcL BMP 05/08/18 04:10 Sodium 139 Potassium 3.3 L Chloride 102 Carbon Dioxide 29 BUN 22 H Creatinine 0.42 L Glucose 171 H Calcium 8.2 L - Impressions Impressions Chest CT 05/07/18 19:30 IMPRESSION: Emphysema/COPD. Clearing or previously seen left lower lobe airspace disease. D/ / Martinez Zuluaga MD / Martinez Zuluaga MD Interpreting Provider: Martinez Zuluaga MD Consult Discharge Plan - Plan Referrals: NONE,PCP [Primary Care Provider] - (2) Acute and chronic respiratory failure Qualifiers: Respiratory failure complication: hypoxia and hypercapnia Qualified Code(s): J96.21 - Acute and chronic respiratory failure with hypoxia; J96.22 - Acute and chronic respiratory failure with hypercapnia (6) Pulmonary embolism Qualifiers: Pulmonary embolism type: other Chronicity: unspecified Acute cor pulmonale presence: without acute cor pulmonale Qualified Code(s): I26.99 - Other pulmonary embolism without acute cor pulmonale
[2018-05-08] MEDS: *HR* Rivaroxaban 10 MG TABLET PO SCH (16:04)
[2018-05-09] MEDS: Ipratropium/Albuterol Neb 3 ML IH SCH ×6 (03:38→23:07)
[2018-05-09] MEDS: Piperacillin/Tazobactam 3.375 GM in 0.9 % Sodium Chloride Mini Bag 100 ML IVPB SCH ×3 (04:56→21:21)
[2018-05-09] MEDS: MethylPREDNISolone 40 MG/ML VIAL IVP SCH ×2 (04:57→16:34)
[2018-05-09 06:27] LABS: Hematocrit 32.5 % (37.5-50.1); Hemoglobin 10.2 g/dL (12.9-16.9); Mean Corpuscular HGB Conc 31.4 g/dL (31.6-35.5); Mean Corpuscular Hemoglobin 26.6 pg (28.0-33.3); Mean Corpuscular Volume 84.6 fL (83.0-100.0); Mean Platelet Volume 10.4 fL (9.4-12.4); Platelet Count 171 K/mcL (140-400); Red Blood Count 3.84 M/mcL (4.19-5.50); Red Cell Distribution Width 16.4 % (11.5-14.5)
[2018-05-09 06:32] LABS: BUN/Creatinine Ratio 53 (6-26); Blood Urea Nitrogen 24 mg/dL (6-20); Calcium 8.3 mg/dL (8.6-10.3); Carbon Dioxide 34 mEq/L (23-29); Chloride 103 mEq/L (98-107); Glucose 165 mg/dL (70-105); Osmolality,Calculated 296 (280-300); Potassium 3.6 mEq/L (3.5-5.1); Sodium 139 mEq/L (136-145); eGFR For Non-African Americans > 60 (> 60)
[2018-05-09] MEDS: Loratadine 10 MG TABLET PO SCH (07:54)
[2018-05-09] MEDS: Furosemide 40 MG TABLET PO SCH ×4 (07:54→16:34)
[2018-05-09] MEDS: Sennosides/Docusate Sodium TABLET PO SCH ×2 (07:55→21:21)
[2018-05-09] MEDS: Gabapentin 300 MG CAPSULE PO SCH ×4 (07:55→21:21)
--- NOTE | 2018-05-09 10:13 | Infectious Disease Progress No ---
Date of Encounter: 05/09/18 Time of Encounter: 08:45 - Assessment and Plan (1) Sepsis Current Visit: No Status: Resolved Pt met sepsis criteria on admission on 05/05 - HR 101, RR 24, source of infection Likely secondary to healthcare associated pneumonia. Cannot rule out intra-abdominal process as well The pt does not currently meet sepsis criteria. - WBC 6.0, T97.6, HR64, RR16 (05/09) - WBC 6.1, T976, HR60, RR14 (05/08) - WBC 8.0 T97.7, HR65, RR18 (05/07) Today BUN 24 (yest 22), Cr 0.45 (yest 0.42) Creatinine clearance 195 ml/min Troponin I < 0.03 (05/05) BNP 105 (05/05) Qualifiers: Sepsis type: sepsis due to unspecified organism Qualified Code(s): A41.9 - Sepsis, unspecified organism (2) Acute and chronic respiratory failure Current Visit: Yes Status: Acute Likely secondary to COPD exacerbation and unlikely pneumonia (less likely based on most recent Chest CT results 05/07) The pt does not currently meet sepsis criteria. - WBC 6.0, T97.6, HR64, RR16 (05/09) - WBC 6.1, T976, HR60, RR14 (05/08) - WBC 8.0 T97.7, HR65, RR18 (05/07) Today BUN 24 (yest 22), Cr 0.45 (yest 0.42) Creatinine clearance 195 ml/min Troponin I < 0.03 (05/05) BNP 105 (05/05) Bronchoscopy 04/27: Bronchoalveolar lavage grew Stenotrophomonas maltophilia - Resistant to TMP-SMX (Bactrim), Levofloxacin, Ceftazidime, and Ticarcillin - Susceptible to Minocycline Fungal culture 04/27: Leticia albicans Urine clean catch 05/05: Negative for Legionella & S. pneumo Respiratory viral panel 05/05: Negative MRSA screen 05/05: Negative On pts previous hospital admission he was discharged with a 14 day course of Minocycline 100 mg PO q12 hrs that was supposed to be completed by 05/07/18. The patient was readmitted on 05/05 due to SOB/dyspnea and severe respiratory symptoms while being on a Minocycline abx regiment. On admission the patient was tachycardic and tachypneic, afebrile with no signs of leukocytosis Chest x-ray 05/05: New patchy left basilar airspace which may reflect atelectasis, pneumonia cannot be excluded in the correct setting CT Chest 04/11: most recent prior CT findings of increased left lower lobe opac ity superimposed upon chronic changes likely represents pneumonia CT Chest 05/07: Emphysema/COPD. Clearing or previously seen left lower lobe airspace disease Pt was initially started on Vancomycin, Zosyn, and Azithromycin and then switched over to Vancomycin, Zosyn, and Fluconazole. Later, Vancomycin and Fluconazole were discontinued, added minocycline on 05/07 Antibiotics received: - Zosyn 3.375 gm IV q8hrs (day 5) - Minocycline 100 mg PO q12hrs (day 2) Recommendations: - Repeat sputum culture for adequate specimen - Continue Zosyn 3.375 gm IV q8hrs for 7 more days - Continue Minocycline 100 mg PO q12hrs for 7 more days Qualifiers: Respiratory failure complication: hypoxia and hypercapnia Qualified Code(s): J96.21 - Acute and chronic respiratory failure with hypoxia; J96.22 - Acute and chronic respiratory failure with hypercapnia (3) HAP (hospital-acquired pneumonia) Current Visit: Yes Status: Acute Pts presentation initially was thought to be possible HAP, however this seems less likely per most recent chest CT on 05/07 that did not show any signs of consolidation or infiltrates, there are signs of clearing of previously seen airspace disease. Blood culture 05/05: Pending Urine clean catch 05/05: Negative for Legionella antigen and Negative for S. pneumo antigen Respiratory viral panel 05/05: Unremarkable Nasal PCR MRSA screen: Negative Cytopathology 04/30: Left lower lobe bronchial lavage/microbrush/cytobrush - all negative for malignancy Fungal culture 04/27: Leticia albicans Chest x-ray 05/05: new patchy left basilar airspace may reflect atelectasis, pneumonia cannot be excluded Endoscopy 04/27: left lower lobe infiltrate unresolved, bronchomalacia of tracehobronchial tree, thrush in larynx Chest CT 04/11: increased left lower lobe opacity superimposed upon chronic changes likely represents pneumonia Chest CT 05/07: Emphysema/COPD. Clearing or previously seen left lower lobe airspace disease. 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 (5) COPD exacerbation Current Visit: Yes Status: Acute Pt has his of COPD and COPD exacerbations in the past requiring hospitalization - Methylprednisolone - BiPAP - Antibiotics for possible pneumonia - Subjective Interval history: Pt was seen at bedside. He did not have any acute changes overnight. The patient has not had no further vomiting episodes, is having bowel movements now, still has dyspnea and on CPAP. The patient does not have any complaints and denies chest paoin, worsening of SOB, abdominal pain. The patient wants to know when he can be discharged. Infect Dis PN-Objective Data - Labs CBC & Chem 7: 05/09/18 06:00 05/09/18 06:00 Labs: Laboratory Results - last 24 hr 05/09/18 05/09/18 06:00 06:00 WBC 6.0 RBC 3.84 L Hgb 10.2 L Hct 32.5 L MCV 84.6 MCH 26.6 L MCHC 31.4 L RDW 16.4 H Plt Count 171 MPV 10.4 Sodium 139 Potassium 3.6 Chloride 103 Carbon Dioxide 34 H BUN 24 H Creatinine 0.45 L Est GFR ( Amer) > 60 Est GFR (Non-Af Amer) > 60 BUN/Creatinine Ratio 53 H Glucose 165 H Calculated Osmolality 296 Calcium 8.3 L Cultures: Cultures 05/05/18 20:00 Legionella Antigen - Final Urine,Clean Catch Streptococcus pneumoniae Antigen (M - Final 05/05/18 18:50 Sputum Culture - Final Sputum 05/05/18 14:58 Blood Culture - Preliminary Peripheral Venipuncture Culture is incubating and being continuously monitored for growth. Final report to follow. 05/05/18 14:50 Blood Culture - Preliminary Peripheral Venipuncture Culture is incubating and being continuously monitored for growth. Final report to follow. Serology 05/06/18 05/05/18 05/05/18 Range/Units 12:06 18:25 18:25 Nasal Screen MRSA (PCR) Negative (Negative) Chlamy pneumoniae PCR Not Detected (Not Detect) Adenovirus (PCR) Not Detected (Not Detect) B. pertussis DNA (PCR) Not Detected (Not Detect) B.parapertussis DNA PCR Not Detected (Not Detect) Coronavirus OC43 (PCR) Not Detected (Not Detect) Coronavirus HKU1 (PCR) Not Detected (Not Detect) Coronavirus 229E (PCR) Not Detected (Not Detect) Coronavirus NL63 (PCR) Not Detected (Not Detect) HIV Ag/Ab Combo Qual Nonreactive (Nonreactive) Human Metapneumovir PCR Not Detected (Not Detect) Influenza A (H1) PCR Not Detected (Not Detect) Influ A (H1N1/09) PCR Not Detected (Not Detect) Influenza A (H3) PCR Not Detected (Not Detect) Influenza A Untype (PCR) Not Detected (Not Detect) Influenza Type B (PCR) Not Detected (Not Detect) M.pneumoniae DNA (PCR) Not Detected (Not Detect) Parainfluenza 1 (PCR) Not Detected (Not Detect) Parainfluenza 2 (PCR) Not Detected (Not Detect) Parainfluenza 3 (PCR) Not Detected (Not Detect) Parainfluenza 4 (PCR) Not Detected (Not Detect) RSV (PCR) Not Detected (Not Detect) Entero/Rhino (PCR) Not Detected (Not Detect) Exam - Constitutional Vitals: Temp Pulse Resp BP Pulse Ox 97.6 F 64 16 120/72 98 05/09/18 08:06 05/09/18 08:06 05/09/18 08:06 05/09/18 08:06 05/09/18 08:06 - Additional findings Additional findings: General: A&Ox3, mild distress, obese Constitutional: no fever, chills, weight changes HEENT: atraumatic, normocephalic, normal inspection Neck: no lymphadenopathy, large neck circumference Respiratory: distant breath sounds, poor inspiratory effort; rhonchi/ wheezing heard bilaterally (worse compared to yesterday), chest expanding symmetrically Cardiovascular: distant heart sounds, barrel chest due to COPD GI: bowel sounds present, no tenderness on palpation, umbilical hernia palpated Extremities: 2+ pulses UE, diminished pulses LE Psychiatric: normal affect Skin: normal color, significant tattoes, ecchymoses on dorsal aspect of hands and forearms Consult Discharge Plan - Plan Referrals: NONE,PCP [Primary Care Provider] - - Attending Attestation I examined this patient and my medical decision-making was reviewed with the Resident Physician. I agree with the documented findings, disposition and treatment plan as described except to the extent set forth below.
--- NOTE | 2018-05-09 10:55 | Palliative - Consult Note ---
<Dori Glez - Last Filed: 05/09/18 14:37> Date of Encounter: 05/09/18 Time of Encounter: 09:45 - Assessment and Plan (1) Ikaxb-az-[id number] respiratory failure Current Visit: Yes Status: Acute Assessment and plan: Patient on Bipap for comfort of breathing, pt able to do 2L NC. Pt breathing regular rate. Pt short of breath at baseline per reports. Pulmonary and primary care team to manage. Qualifiers: Respiratory failure complication: hypoxia and hypercapnia Qualified Code(s): J96.21 - Acute and chronic respiratory failure with hypoxia; J96.22 - Acute and chronic respiratory failure with hypercapnia (2) Pneumonia Current Visit: Yes Status: Acute Assessment and plan: Pt being treated with ABX. ID to manage. No fever noted. Qualifiers: Pneumonia type: due to unspecified organism Laterality: bilateral Lung location: unspecified part of lung Qualified Code(s): J18.9 - Pneumonia, unspecified organism (3) Constipation Current Visit: No Status: Acute Assessment and plan: Last charted bowel movement 05/07/18. Pt taking Senna/plus BID scheduled. Continue to monitor. Qualifiers: Constipation type: other constipation type Qualified Code(s): K59.09 - Other constipation (4) Hypoxia Current Visit: No Status: Acute Assessment and plan: Pt without hypoxia on Bipap and on 2L NC(93% oxygen saturation) (5) Weakness Current Visit: No Status: Acute Assessment and plan: Patient has generalized weakness. Pt uses cane at home. States that he has three sisters, but that they rarely come check on him. He refuses senior living care. Pt states he "wants to go home" repeatedly. Pt previously had physical therapy set up, but that he was not home long enough to be evaluated. (6) Anxiety and depression Current Visit: Yes Status: Acute Assessment and plan: Patient reports anxiety and depression. Patient is agitated, anxious, but flat in his communication. Patient was impulsive at times. (primary care team) and Virginia Gallardo(Palliative Care BOX PRINTER) spoke about the patient's anxiety and depression, in which Psychiatry consult is recommended to help the patient with these problems and to establish competence. (7) Goals of care, counseling/discussion Current Visit: Yes Status: Acute Assessment and plan: CODE STATUS discussion occurred. Patient adamantly wants to remain a FULL CODE. He states he is aware of what chest compressions are and that intubation would be alright. MPOA form discussed as patient has no kids, no . Patient has three sisters. Patient refused to fill out form to designate MPOA. Upon assessment patient states that he wants to go home. The patient recognizes that his lungs are not doing well, but declines to make any decisions for the future of his care. Palliative-CN HPI - Data of Consult Patient: known to practice within the last 3 years Consult date: 05/09/18 Requesting Physician: Lashay Chowdary MD Primary Care Provider: PCP NONE - Consult Narrative Palliative Care/Comfort Measures: Palliative care History of present illness: Mr. Blanchard is a 58 year old male admitted through ER on 05/05 for shortness of breath and COPD exacerbation. He had just been at [facility] inpatient earlier that morning. PMHx: COPD, CHF, HLD, HTN, PE on xorelto, anxiety, depression, MYNOR with CPAP at home, and obesity. CXR showed mild patchy left basilar airspace disease with atelectasis vs.pneumonia. Pt had a bronchoscopy on 04/27 that was positive for stenotrophomona and paulo albicans infection. Brach also confirmed mronchomalacia. Patient has had multiple admissions (60 admissions this year). Pt was on multiple different antibiotics, but currently being treated with minocycline per ID on 05/07. Pulmonology also following the case and are very familiar with this patient. Pulmonology recommend palliative care consult and/or second opinion in [place] or [place]. Patient has [facility] at home, but per reports of the patient they never show up. Upon assessment patient is on Bipap relaxing. Patient states that he breathes easier on the Bipap and refused to come off for conversation. Once conversation began about goals of care and discharge planning, the patient began to get adjitated, ripped Bipap off and attempted to get out of bed and grab his clothes and cane. Pt ripped of oxygen sensor and stated he was going to leave. Primary RN to come to bedside. Patient sitting on side of bed with increased shortness of breath. Patient placed on 2L NC with adequate oxygen saturation(93%) and was able to calm down with further conversation. Patient coughing up large amounts of thick white sputum into bedside trashcan. Patient without pain, nausea/vomiting, chest pain. Pt reports feeling short of breath, but has felt this way for a long time now. Pt reports anxiety and depression. CC: Lashay Chowdary MD - Time Spent with Patient Time: Total time spent is greater than 50% in coordination of care (as documented) at patient's floor/unit and/or counseling patient: Time with patient: 60 minutes Past Med Surg Social Fam HX - Past Medical History Medical history: CHF, COPD, hyperlipidemia, hypertension, pulmonary embolus Additional medical history: umbilical hernia Psychiatric history: anxiety, depression - Past Surgical History Surgical History: no surgical history - Social History Smoking Status: Former smoker Smokeless Tobacco Status: No Alcohol use: none Drug use: marijuana - Family History Father Living Status: Hx Family Cancer: Yes (colon) Mother Living Status: Hx Family Cancer: Yes Medications and Allergies RX: Oxygen 4 l NS CONT 07/25/17 [History] RX: Roflumilast [Daliresp] 500 mcg PO DAILY 07/25/17 [History] RX: Loratadine [Claritin] 10 mg PO DAILY #30 tablet 11/09/17 [Rx] RX: Gabapentin [Neurontin] 300 mg PO TID 12/31/17 [History] RX: Albuterol Sulfate [Albuterol Inhaler] 2 puff IH Q4H PRN #1 inhaler 01/17/18 [Rx] RX: Rivaroxaban [Xarelto] 20 mg PO QPM 03/06/18 [History] RX: Potassium Chloride 20 meq PO DAILY #30 tab.er.prt 04/11/18 [Rx] RX: Sennosides/Docusate Sodium [Senna Plus] 2 each PO BID 30 Days #60 tablet 04/23/18 [Rx] RX: Mometasone/Formoterol [Dulera 100 Mcg/5 Mcg Inhaler] 2 puff IH BID 04/25/18 [History] RX: Ipratropium/Albuterol Sulfate [Iprat-Albut 0.5-3(2.5) mg/3 ml] 1 vial IH Q4H #120 04/29/18 [Rx] predniSONE [PredniSONE] 40 mg PO DAILY #35 tablet 04/29/18 [Rx] Omeprazole [PriLOSEC] 20 mg PO DAILY 05/05/18 [History] RX: Fluconazole [Diflucan] 400 mg PO DAILY 05/05/18 [History] RX: Furosemide [Lasix] 20 mg PO TID 05/05/18 [History] Allergy/AdvReac Type Severity Reaction Status Date / Time levofloxacin AdvReac See Verified 05/05/18 16:16 Comments - Constitutional Constitutional ROS PAL: fatigue, no decreased appetite, no chills, no fever(s), no weight loss - EENT Ears, nose, mouth, throat: dysphagia - Cardiovascular Cardiovascular ROS: dyspnea on exertion, no diaphoresis, no irregular heart rhythm, no pedal edema - Respiratory Respiratory: dyspnea, dyspnea on exertion, excessive phlegm production - Gastrointestinal Gastrointestinal: no abdominal pain, no bloating - Musculoskeletal Musculoskeletal ROS IM: muscle weakness - Integumentary ROS Integumentary: dry skin - Neurological Neurological ROS: weakness - Psychiatric Psychiatric general PM: anxiety, depression, no change in appetite Palliative Care-Exam - Constitutional Vitals: Temp Pulse Resp BP Pulse Ox 97.6 F 64 16 120/72 98 05/09/18 08:06 05/09/18 08:06 05/09/18 08:06 05/09/18 08:06 05/09/18 08:06 General appearance: Present: mild distress, obese. Absent: cooperative, severe distress - Head Head Exam: Present: atraumatic, normal inspection Additional comments: Facial Swelling noted, large short neck. - Expanded Head Exam Head exam expanded IM: Absent: general tenderness - Eye Eye exam: Present: PERRL Pupils: Present: PERRL Additional comments: patient keeps eyes closed when talking. - ENT ENT exam: Present: mucous membranes moist - Expanded ENT Exam Mouth Exam: Present: moist Teeth exam: Present: edentulous - Respiratory Respiratory exam: Present: respiratory distress. Absent: wheezes, tachypnea Additional comments: Rhonchi in throat, lungs with fine crackles. Barrel chest with abdominal breathing. - Cardiovascular Cardiovascular exam: Present: RRR, +S1, +S2 - GI/Abdominal Exam GI/Abdominal exam: Present: normal bowel sounds. Absent: distended, firm, guarding, tenderness additional comments: Round obese - Rectal Rectal Exam: Present: deferred - Neurological Exam Neurological exam: Present: alert, oriented X3. Absent: altered, facial droop - Expanded Neurological Exam Neurological exam expanded: Absent: tremor Speech: Present: fluid speech Coma Scale Eye Opening: Spontaneous Coma Scale Motor Response: Obeys Commands Coma Scale Verbal Response: Oriented Coma Scale Total: 15 - Psychiatric Psychiatric exam: Present: agitated, anxious, depressed, flat affect Internal Medicine - CN: Reslt - Labs CBC & Chem 7: 05/09/18 06:00 05/09/18 06:00 Labs: Short CBC 05/09/18 Range/Units 06:00 WBC 6.0 (4.3-11.1) K/mcL Hgb 10.2 L (12.9-16.9) g/dL Hct 32.5 L (37.5-50.1) % Plt Count 171 (140-400) K/mcL BMP 05/09/18 06:00 Sodium 139 Potassium 3.6 Chloride 103 Carbon Dioxide 34 H BUN 24 H Creatinine 0.45 L Glucose 165 H Calcium 8.3 L Consult Discharge Plan - Plan Referrals: NONE,PCP [Primary Care Provider] - Palliative Quality Palliative Quality: Screen for Code Status: Yes, Screen for Goals of Care: Yes, Screen for Pain: Yes, If Pain Regimen Started, Initiate Bowel Regimen: Yes, Screen for Nausea/Vomitting: Yes Code Status: 05/05/18 13:37 Resuscitation Status: Active [RES] Routine Comment: Resuscitation Status: Full Code <Virginia Gallardo L - Last Filed: 05/09/18 15:24> Date of Encounter: 05/09/18 - Assessment and Plan (1) Anxiety and depression Current Visit: Yes Status: Acute Assessment and plan: Patient reports chronic depression. patient has no history of treatment with Depression outpatient. Compliance with anti-depressant is of concern as well. (2) Goals of care, counseling/discussion Current Visit: Yes Status: Acute Assessment and plan: Patient did express interest in potential of transfer to [place]; however, refused transfer to [place]. Patient only expresses desire to live. Patient having difficulty understanding disease prognosis and outcome. Patient only repeating back what he hears, versus understanding information. patient inquired if lung transplant would fix his lungs. (3) Constipation Current Visit: No Status: Acute Qualifiers: Constipation type: other constipation type Qualified Code(s): K59.09 - Other constipation (4) Hypoxia Current Visit: No Status: Acute (5) Weakness Current Visit: No Status: Acute Assessment and plan: PT/OT consults ordered. (6) Bdozp-jm-[id number] respiratory failure Current Visit: Yes Status: Acute Qualifiers: Respiratory failure complication: hypoxia and hypercapnia Qualified Code(s): J96.21 - Acute and chronic respiratory failure with hypoxia; J96.22 - Acute and chronic respiratory failure with hypercapnia (7) Pneumonia Current Visit: Yes Status: Acute Qualifiers: Pneumonia type: due to unspecified organism Laterality: bilateral Lung location: unspecified part of lung Qualified Code(s): J18.9 - Pneumonia, unspecified organism Palliative-CN HPI - Data of Consult Patient: known to practice within the last 3 years Requesting Physician: Lashay Chowdary MD Primary Care Provider: PCP NONE - Consult Narrative Palliative Care/Comfort Measures: Palliative care Reason for consult: Goals of care History of present illness: Agree with above noted assessment. CC: Lashay Chowdary MD - Time Spent with Patient Time: Total time spent is greater than 50% in coordination of care (as documented) at patient's floor/unit and/or counseling patient: Time with patient: 60 minutes - Constitutional Constitutional ROS PAL: fatigue, no decreased appetite, no chills, no fever(s), no weight loss - EENT Ears, nose, mouth, throat: dysphagia - Cardiovascular Cardiovascular ROS: dyspnea on exertion, no diaphoresis, no irregular heart rhythm, no pedal edema - Respiratory Respiratory: dyspnea, dyspnea on exertion, excessive phlegm production - Gastrointestinal Gastrointestinal: no abdominal pain, no bloating - Musculoskeletal Musculoskeletal ROS IM: muscle weakness - Integumentary ROS Integumentary: dry skin - Neurological Neurological ROS: lack of coordination, memory loss, weakness - Psychiatric Psychiatric general PM: anxiety, depression, no change in appetite Palliative Care-Exam - Constitutional Vitals: Temp Pulse Resp BP Pulse Ox 98 F 65 15 123/71 98 05/09/18 12:24 05/09/18 12:24 05/09/18 12:24 05/09/18 12:24 05/09/18 12:24 General appearance: Present: mild distress, obese. Absent: cooperative, severe distress - Head Head Exam: Present: atraumatic, normal inspection - Expanded Head Exam Head exam expanded IM: Absent: general tenderness - Eye Eye exam: Present: PERRL Pupils: Present: PERRL Additional comments: Opens eyes on command. - ENT ENT exam: Present: mucous membranes moist - Expanded ENT Exam Mouth Exam: Present: moist Teeth exam: Present: edentulous - Respiratory Respiratory exam: Present: respiratory distress. Absent: wheezes, tachypnea - Cardiovascular Cardiovascular exam: Present: RRR, +S1, +S2 - GI/Abdominal Exam GI/Abdominal exam: Present: normal bowel sounds. Absent: distended, firm, guard ing, tenderness - Rectal Rectal Exam: Present: deferred - Neurological Exam Neurological exam: Present: alert, oriented X3. Absent: altered, facial droop - Expanded Neurological Exam Neurological exam expanded: Absent: tremor Speech: Present: fluid speech Coma Scale Eye Opening: Spontaneous Coma Scale Motor Response: Obeys Commands Coma Scale Verbal Response: Oriented Coma Scale Total: 15 - Psychiatric Psychiatric exam: Present: agitated, anxious, depressed, flat affect - Skin Skin exam: Absent: normal color Internal Medicine - CN: Reslt - Labs CBC & Chem 7: 05/09/18 06:00 05/09/18 06:00 Labs: Short CBC 05/09/18 Range/Units 06:00 WBC 6.0 (4.3-11.1) K/mcL Hgb 10.2 L (12.9-16.9) g/dL Hct 32.5 L (37.5-50.1) % Plt Count 171 (140-400) K/mcL BMP 05/09/18 06:00 Sodium 139 Potassium 3.6 Chloride 103 Carbon Dioxide 34 H BUN 24 H Creatinine 0.45 L Glucose 165 H Calcium 8.3 L Palliative Quality Palliative Quality: Screen for Code Status: Yes, Screen for Goals of Care: Yes, Screen for Pain: Yes, If Pain Regimen Started, Initiate Bowel Regimen: Yes, Screen for Nausea/Vomitting: Yes Code Status: 05/05/18 13:37 Resuscitation Status: Active [RES] Routine Comment: Resuscitation Status: Full Code Palliative Scale - Palliative Performance Scale How ambulatory is this patient?: Mainly sit / lie What is patient's level of activity and evidence of disease?: Unable to do any work, Extensive disease How much self-care assistance does patient require?: Mainly assistance How much oral intake does the patient have?: Normal or reduced What is this patient's level of consciousness?: Full or confusion Palliative Performance Score: 50 %
[2018-05-09] MEDS: Budesonide/Formoterol 160/4.5 1 PUFF INH IH SCH ×2 (11:06→19:32)
--- NOTE | 2018-05-09 12:18 | Internal Med Progress Note ---
Hospitalist Progress Note - Encounter Date of Encounter: 05/09/18 Time of Encounter: 08:00 - Subjective Interval History: Patient was seen and examined at bedside. Has no complaints. No overnight events. Tolerating by mouth diet. denies N/v/D. denies CP, Sob, palpitations - Exam Vitals: Temp Pulse Resp BP Pulse Ox 97.6 F 64 12 120/72 95 05/09/18 08:06 05/09/18 08:06 05/09/18 11:06 05/09/18 08:06 05/09/18 11:06 Exam: General: Patient is alert, oriented, no acute distress, disheveled, obese Head: atraumatic, normocephalic, Eye: normal appearance, no scleral icterus, no conjunctival injection ENT: mucous membranes moist, normal external ear exam Neck: normal inspection, trachea midline, full ROM, no carotid bruits Chest: normal inspection, symmetric chest rise Respiratory: Decreased breath sounds bilaterally secondary to body habitus, occasional wheezing in anterior chest, crackles the posterior lung field (improved) Cardiovascular: Distant heart sounds secondary to body habitus , Regular rate and rhythm. s1 and s2 No clicks, rubs, gallops, or murmors. Abdomen: Bowel sounds present normoactive x-4 quadrants. Abdomen is soft, nondistended. no Epigastric tenderness. No guarding or rebound. No organomegaly noted, obese musculoskeletal: Spontaneously moving all extremities. no edema, no calf tenderness Skin: warm, dry, intact. Notable ecchymosis in the bilateral upper extremities in different stages of healing. Neuro: Alert and oriented x4. No focal deficit Psych: Patient's affect is normal - Assessment and Plan (1) HAP (hospital-acquired pneumonia) Current Visit: Yes Status: Acute Assessment and Plan: most likely secondary to HAP. has had BAL cultures and multiple other cultures positive with stenotrophomonas maltophilia recently discharged with 1 month steroid taper and minocycline with out improvement history of multiple hospital admissions (recently at [facility] and was discharged on 05/04 from [facility]) on zosyn and minocycline ID recs appreciated blood cx NGTD sputum cx - did nt meet criteria - nursing staff aware to repeat respiratory viral panel - negative urine antigens - negative so Zithromax was discontinued MRSA nasal swab negative discontinued vancomycin CT chest: IMPRESSION: Emphysema/COPD. Clearing or previously seen left lower lobe airspace disease. (2) Acute and chronic respiratory failure Current Visit: Yes Status: Acute Assessment and Plan: secondary to above management as per above pulm recs appreciated palliative consulted for goals of care (3) COPD exacerbation Current Visit: Yes Status: Acute Assessment and Plan: started on steroids will continue to taper continues pulse OX oxygen via nasal cannula keep saturation around 92% Duo-neb Abx as above (4) Acquired bronchomalacia Current Visit: No Status: Chronic Assessment and Plan: as seen on bronchoscopy on April 2018 (5) MYNOR (obstructive sleep apnea) Current Visit: Yes Status: Chronic Assessment and Plan: continue with CPAP at nights (6) Pulmonary embolism Current Visit: No Status: Chronic Assessment and Plan: will continue xarelto (7) DVT prophylaxis Current Visit: No Status: Acute Assessment and Plan: on xarelto (8) Obesity (BMI 30.0-34.9) Current Visit: No Status: Chronic Assessment and Plan: nutrition consult - Time Spent with Patient Total time spent is greater than 50% in coordination of care (as documented) at patient's floor/unit and/or counseling patient: Internal Medicine: Result - Labs CBC & Chem 7: 05/09/18 06:00 05/09/18 06:00 Labs: Short CBC 05/09/18 Range/Units 06:00 WBC 6.0 (4.3-11.1) K/mcL Hgb 10.2 L (12.9-16.9) g/dL Hct 32.5 L (37.5-50.1) % Plt Count 171 (140-400) K/mcL BMP 05/09/18 06:00 Sodium 139 Potassium 3.6 Chloride 103 Carbon Dioxide 34 H BUN 24 H Creatinine 0.45 L Glucose 165 H Calcium 8.3 L Consult Discharge Plan - Plan Referrals: NONE,PCP [Primary Care Provider] - (2) Acute and chronic respiratory failure Qualifiers: Respiratory failure complication: hypoxia and hypercapnia Qualified Code(s): J96.21 - Acute and chronic respiratory failure with hypoxia; J96.22 - Acute and chronic respiratory failure with hypercapnia (6) Pulmonary embolism Qualifiers: Pulmonary embolism type: other Chronicity: unspecified Acute cor pulmonale presence: without acute cor pulmonale Qualified Code(s): I26.99 - Other pulmonary embolism without acute cor pulmonale
[2018-05-09] MEDS: *HR* Rivaroxaban 10 MG TABLET PO SCH (16:34)
[2018-05-10] MEDS: Ipratropium/Albuterol Neb 3 ML IH SCH ×4 (03:47→16:02)
[2018-05-10 04:01] LABS: Hematocrit 34.5 % (37.5-50.1); Hemoglobin 10.8 g/dL (12.9-16.9); Mean Corpuscular HGB Conc 31.3 g/dL (31.6-35.5); Mean Corpuscular Hemoglobin 26.8 pg (28.0-33.3); Mean Corpuscular Volume 85.6 fL (83.0-100.0); Mean Platelet Volume 10.1 fL (9.4-12.4); Platelet Count 183 K/mcL (140-400); Red Blood Count 4.03 M/mcL (4.19-5.50); Red Cell Distribution Width 16.3 % (11.5-14.5)
[2018-05-10 04:09] LABS: BUN/Creatinine Ratio 41 (6-26); Blood Urea Nitrogen 19 mg/dL (6-20); Calcium 8.1 mg/dL (8.6-10.3); Carbon Dioxide 33 mEq/L (23-29); Chloride 102 mEq/L (98-107); Glucose 173 mg/dL (70-105); Osmolality,Calculated 290 (280-300); Potassium 3.5 mEq/L (3.5-5.1); Sodium 137 mEq/L (136-145); eGFR For Non-African Americans > 60 (> 60)
[2018-05-10] MEDS: Piperacillin/Tazobactam 3.375 GM in 0.9 % Sodium Chloride Mini Bag 100 ML IVPB SCH ×2 (05:20→13:10)
[2018-05-10] MEDS: MethylPREDNISolone 40 MG/ML VIAL IVP SCH (05:20)
--- NOTE | 2018-05-10 09:14 | Infectious Disease Progress No ---
Date of Encounter: 05/10/18 Time of Encounter: 09:30 - Assessment and Plan (1) Sepsis Current Visit: No Status: Resolved Pt met sepsis criteria on admission on 05/05 - HR 101, RR 24, source of infection Likely secondary to healthcare associated pneumonia. Cannot rule out intra-abdominal process as well The pt does not currently meet sepsis criteria. - WBC 5.0, T98.0, HR70, RR15 (05/10) - WBC 6.0, T97.6, HR64, RR16 (05/09) - WBC 6.1, T976, HR60, RR14 (05/08) - WBC 8.0 T97.7, HR65, RR18 (05/07) Today BUN 19 (yest 24), Cr 0.46 (yest 0.45) Creatinine clearance 191 ml/min Troponin I < 0.03 (05/05) BNP 105 (05/05) Qualifiers: Sepsis type: sepsis due to unspecified organism Qualified Code(s): A41.9 - Sepsis, unspecified organism (2) Acute and chronic respiratory failure Current Visit: Yes Status: Acute Likely secondary to COPD exacerbation and unlikely pneumonia (less likely based on most recent Chest CT results 05/07) The pt does not currently meet sepsis criteria. - WBC 5.0, T98.0, HR70, RR15 (05/10) - WBC 6.0, T97.6, HR64, RR16 (05/09) - WBC 6.1, T976, HR60, RR14 (05/08) - WBC 8.0 T97.7, HR65, RR18 (05/07) Today BUN 19 (yest 24), Cr 0.46 (yest 0.45) Creatinine clearance 191 ml/min Troponin I < 0.03 (05/05) BNP 105 (05/05) Bronchoscopy 04/27: Bronchoalveolar lavage grew Stenotrophomonas maltophilia - Resistant to TMP-SMX (Bactrim), Levofloxacin, Ceftazidime, and Ticarcillin - Susceptible to Minocycline Fungal culture 04/27: Leticia albicans Urine clean catch 05/05: Negative for Legionella & S. pneumo Respiratory viral panel 05/05: Negative MRSA screen 05/05: Negative On pts previous hospital admission he was discharged with a 14 day course of Minocycline 100 mg PO q12 hrs that was supposed to be completed by 05/07/18. The patient was readmitted on 05/05 due to SOB/dyspnea and severe respiratory symptoms while being on a Minocycline abx regiment. On admission the patient was tachycardic and tachypneic, afebrile with no signs of leukocytosis Chest x-ray 05/05: New patchy left basilar airspace which may reflect atelectasis, pneumonia cannot be excluded in the correct setting CT Chest 04/11: most recent prior CT findings of increased left lower lobe opacity superimposed upon chronic changes likely represents pneumonia CT Chest 05/07: Emphysema/COPD. Clearing or previously seen left lower lobe airspace disease Pt was initially started on Vancomycin, Zosyn, and Azithromycin and then switched over to Vancomycin, Zosyn, and Fluconazole. Later, Vancomycin and Fluconazole were discontinued, added minocycline on 05/07 Antibiotics received: - Zosyn 3.375 gm IV q8hrs (day 6) - Minocycline 100 mg PO q12hrs (day 3) Recommendations: - Repeat sputum culture for adequate specimen - Continue Zosyn 3.375 gm IV q8hrs through 05/16/18 - Continue Minocycline 100 mg PO q12hrs through 05/16/18 Qualifiers: Respiratory failure complication: hypoxia and hypercapnia Qualified Code(s): J96.21 - Acute and chronic respiratory failure with hypoxia; J96.22 - Acute and chronic respiratory failure with hypercapnia (3) HAP (hospital-acquired pneumonia) Current Visit: Yes Status: Acute Pts presentation initially was thought to be possible HAP, however this seems less likely per most recent chest CT on 05/07 that did not show any signs of consolidation or infiltrates, there are signs of clearing of previously seen airspace disease. Blood culture 05/05: Pending Urine clean catch 05/05: Negative for Legionella antigen and Negative for S. pneumo antigen Respiratory viral panel 05/05: Unremarkable Nasal PCR MRSA screen: Negative Cytopathology 04/30: Left lower lobe bronchial lavage/microbrush/cytobrush - all negative for malignancy Fungal culture 04/27: Leticia albicans Chest x-ray 05/05: new patchy left basilar airspace may reflect atelectasis, pneumonia cannot be excluded Endoscopy 04/27: left lower lobe infiltrate unresolved, bronchomalacia of tracehobronchial tree, thrush in larynx Chest CT 04/11: increased left lower lobe opacity superimposed upon chronic changes likely represents pneumonia Chest CT 05/07: Emphysema/COPD. Clearing or previously seen left lower lobe airspace disease. 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 (5) COPD exacerbation Current Visit: Yes Status: Acute Pt has his of COPD and COPD exacerbations in the past requiring hospitalization - Methylprednisolone - BiPAP - Antibiotics for possible pneumonia - Subjective Interval history: Pt was seen at bedside. He did not have any acute changes overnight. The patient has not had no further vomiting episodes, is having bowel movements now, still has dyspnea and on BiPAP The patient does not have any complaints and denies chest paoin, worsening of SOB, abdominal pain. The patient is okay with going to ECF to complete abx course. Infect Dis PN-Objective Data - Labs CBC & Chem 7: 05/10/18 03:45 05/10/18 03:45 Labs: Laboratory Results - last 24 hr 05/10/18 05/10/18 03:45 03:45 WBC 5.0 RBC 4.03 L Hgb 10.8 L Hct 34.5 L MCV 85.6 MCH 26.8 L MCHC 31.3 L RDW 16.3 H Plt Count 183 MPV 10.1 Sodium 137 Potassium 3.5 Chloride 102 Carbon Dioxide 33 H BUN 19 Creatinine 0.46 L Est GFR ( Amer) > 60 Est GFR (Non-Af Amer) > 60 BUN/Creatinine Ratio 41 H Glucose 173 H Calculated Osmolality 290 Calcium 8.1 L Cultures: Cultures 05/05/18 20:00 Legionella Antigen - Final Urine,Clean Catch Streptococcus pneumoniae Antigen (M - Final 05/05/18 18:50 Sputum Culture - Final Sputum 05/05/18 14:58 Blood Culture - Preliminary Peripheral Venipuncture Culture is incubating and being continuously monitored for growth. Final report to follow. 05/05/18 14:50 Blood Culture - Preliminary Peripheral Venipuncture Culture is incubating and being continuously monitored for growth. Final report to follow. Serology 05/06/18 05/05/18 05/05/18 Range/Units 12:06 18:25 18:25 Nasal Screen MRSA (PCR) Negative (Negative) Chlamy pneumoniae PCR Not Detected (Not Detect) Adenovirus (PCR) Not Detected (Not Detect) B. pertussis DNA (PCR) Not Detected (Not Detect) B.parapertussis DNA PCR Not Detected (Not Detect) Coronavirus OC43 (PCR) Not Detected (Not Detect) Coronavirus HKU1 (PCR) Not Detected (Not Detect) Coronavirus 229E (PCR) Not Detected (Not Detect) Coronavirus NL63 (PCR) Not Detected (Not Detect) HIV Ag/Ab Combo Qual Nonreactive (Nonreactive) Human Metapneumovir PCR Not Detected (Not Detect) Influenza A (H1) PCR Not Detected (Not Detect) Influ A (H1N1/09) PCR Not Detected (Not Detect) Influenza A (H3) PCR Not Detected (Not Detect) Influenza A Untype (PCR) Not Detected (Not Detect) Influenza Type B (PCR) Not Detected (Not Detect) M.pneumoniae DNA (PCR) Not Detected (Not Detect) Parainfluenza 1 (PCR) Not Detected (Not Detect) Parainfluenza 2 (PCR) Not Detected (Not Detect) Parainfluenza 3 (PCR) Not Detected (Not Detect) Parainfluenza 4 (PCR) Not Detected (Not Detect) RSV (PCR) Not Detected (Not Detect) Entero/Rhino (PCR) Not Detected (Not Detect) Exam - Constitutional Vitals: Temp Pulse Resp BP Pulse Ox 98.0 F 70 15 123/79 98 05/10/18 05:12 05/10/18 05:12 05/10/18 07:23 05/10/18 05:12 05/10/18 07:23 - Additional findings Additional findings: General: A&Ox3, mild distress, obese Constitutional: no fever, chills, weight changes HEENT: atraumatic, normocephalic, normal inspection Neck: no lymphadenopathy, large neck circumference Respiratory: distant breath sounds, poor inspiratory effort; rhonchi/ wheezing heard bilaterally (improved from yesterday), chest expanding symmetrically Cardiovascular: distant heart sounds, barrel chest due to COPD GI: bowel sounds present, no tenderness on palpation, umbilical hernia palpated Extremities: 2+ pulses UE, diminished pulses LE Psychiatric: normal affect Skin: normal color, significant tattoes, ecchymoses on dorsal aspect of hands and forearms Consult Discharge Plan - Plan Referrals: Nilson Campa [Resident] - 05/29/18 4:00 pm Richard Skinner MD [Partnered Physician] - Prescriptions: Piperacillin/Tazobactam [Zosyn] 3.375 gm IVPB Q8HR 7 Days #21 vial RX: Minocycline [Minocin] 100 mg PO Q12HR 7 Days #14 capsule predniSONE [PredniSONE] 10 mg PO DAILY 7 Days #21 tablet - Attending Attestation I examined this patient and my medical decision-making was reviewed with the Resident Physician. I agree with the documented findings, disposition and treatment plan as described except to the extent set forth below.
[2018-05-10] MEDS: Loratadine 10 MG TABLET PO SCH (09:36)
[2018-05-10] MEDS: Sennosides/Docusate Sodium TABLET PO SCH (09:36)
[2018-05-10] MEDS: Gabapentin 300 MG CAPSULE PO SCH ×2 (09:36→14:59)
[2018-05-10] MEDS: Furosemide 40 MG TABLET PO SCH ×3 (09:36→16:54)
--- NOTE | 2018-05-10 09:57 | Discharge Summary ---
- NOTES TO OUTPATIENT PROVIDER Notes to Outpatient Provider: follow up with pulmonology as OP. bookerow with PCP Orders not resulted at time of discharge: Pending orders 05/05/18 14:58 Culture,Blood [BC] Stat 05/08/18 17:55 Immunoglobulins IgG IgA IgM Routine Date of Encounter: 05/10/18 Time of Encounter: 09:55 - Discharge Diagnosis (1) HAP (hospital-acquired pneumonia) Priority: Primary Status: Acute (2) Acute and chronic respiratory failure Priority: Secondary Status: Acute Qualifiers: Respiratory failure complication: hypoxia and hypercapnia Qualified Code(s): J96.21 - Acute and chronic respiratory failure with hypoxia; J96.22 - Acute and chronic respiratory failure with hypercapnia (3) COPD exacerbation Priority: Secondary Status: Acute (4) Acquired bronchomalacia Priority: Secondary Status: Chronic (5) MYNOR (obstructive sleep apnea) Priority: Secondary Status: Chronic (6) Pulmonary embolism Priority: Secondary Status: Chronic Qualifiers: Pulmonary embolism type: other Chronicity: unspecified Acute cor pulmonale presence: without acute cor pulmonale Qualified Code(s): I26.99 - Other pulmonary embolism without acute cor pulmonale (7) DVT prophylaxis Priority: Secondary Status: Acute (8) Obesity (BMI 30.0-34.9) Priority: Secondary Status: Chronic Hospital course: "Mr. Blanchard is a 58 year old male with a past medical history of chronic hypoxic respiratory failure on 4 L home oxygen, CHF with preserved ejection fraction, COPD, hypertension, hyperlipidemia and history of PE on anticoagulation who presents to the ED due to shortness of breath. his symptoms started suddenly on the day of admission adn have progressively worsened. He reports that his shortness of breath is aggravated by exertion and relieved by rest and oxygen. SOb is associated with productive sptum denies hemoptysis. he was recently discharged secondary to similar complaint and his symptoms were thought to be due to COPD exacerbation + bronchomalacia. Bronchoscopy performed on last admission and showed bronchomalacia throughout his airway. BAL showed stenotrophomonas maltophilia. he was discharged to continue minocycline which was recommended by ID on his admission in late march 2018 hoe ever he has not felt any improvement. Sputum culture from 04/15/2018 grew Stenotrophomonas maltophilia resistant to levofloxacin and Bactrim. Patient reports that on discharge 04/29/18 he felt better however immediately after he reached home developed shortness of breath and decided to go to [facility] for further evaluation. He reports that he was treated for COPD exacerbation at [facility] and was discharged on 05/04. Today he felt as though his breathing worsened again and he was unable to walk around his house as he typically can so he decided to come to the emergency department for further evaluation. He reports that he is compliant with all his medications. On the emergency department chest x-ray showed a new, mild patchy left basilar airspace disease and he was treated with broad-spectrum antibiotics for hospital acquired pneumonia and was endorsed for admission for further evaluation and management of above symptoms. he denies fever, chills, Chest pain, palpitations, leg swelling, hematochezia, tejas, diarrhea, abdominal pain. " Patient presented with above presentation and was admitted for acute on chronic respiratory failure secondary to hospital acquired pneumonia and COPD exacerbation. He was started on IV steroids, BiPAP and IV antibiotics with improvement of his symptoms. Urine antigens were negative, respiratory viral panel was negative, blood cultures no growth to date. Infectious disease and pulmonology were consulted and recommendations appreciated. Palliative was consulted for goals of care. CT chest with contrast was performed which showed improvement of previous infiltratesfull report below. As per ID recommendation he was to complete 7 day course of Zosyn and minocycline. Steroid taper was also prescribed. Prescriptions were given to the porter sample case and social work coordinator. He agreed to go to facility to have IV an tibiotics administered. He declined to have physical therapy and occupational therapy during admission. He was counseled on importance of compliance to medications, was counseled on nutrition, weight loss and smoking extensively. CT chest with IV contrast IMPRESSION: Emphysema/COPD. Clearing or previously seen left lower lobe airspace disease. Discharge discussed with: patient, nurse, social work, case management, delivery consultant Time spent discussing smoking cessation with patient: 3 to 10 minutes - Time Spent with Patient Total time spent providing and/or coordinating discharge services: Greater than 30 minutes (45) - Discharge Medications Prescriptions: Piperacillin/Tazobactam [Zosyn] 3.375 gm IVPB Q8HR 7 Days #21 vial Minocycline [Minocin] 100 mg PO Q12HR 7 Days #14 capsule predniSONE [PredniSONE] 10 mg PO DAILY 7 Days #21 tablet Home Medications: Oxygen 4 l NS CONT 07/25/17 [History] Roflumilast [Daliresp] 500 mcg PO DAILY 07/25/17 [History] Loratadine [Claritin] 10 mg PO DAILY #30 tablet 11/09/17 [Rx] Gabapentin [Neurontin] 300 mg PO TID 12/31/17 [History] Albuterol Sulfate [Albuterol Inhaler] 2 puff IH Q4H PRN #1 inhaler 01/17/18 [Rx] Rivaroxaban [Xarelto] 20 mg PO QPM 03/06/18 [History] Potassium Chloride 20 meq PO DAILY #30 tab.er.prt 04/11/18 [Rx] Sennosides/Docusate Sodium [Senna Plus] 2 each PO BID 30 Days #60 tablet 04/23/18 [Rx] Mometasone/Formoterol [Dulera 100 Mcg/5 Mcg Inhaler] 2 puff IH BID 04/25/18 [History] Ipratropium/Albuterol Sulfate [Iprat-Albut 0.5-3(2.5) mg/3 ml] 1 vial IH Q4H #120 04/29/18 [Rx] Furosemide [Lasix] 20 mg PO TID 05/05/18 [History] Omeprazole [PriLOSEC] 20 mg PO DAILY 05/05/18 [History] Piperacillin/Tazobactam [Zosyn] 3.375 gm IVPB Q8HR 7 Days #21 vial 05/09/18 [Rx] Minocycline [Minocin] 100 mg PO Q12HR 7 Days #14 capsule 05/10/18 [Rx] predniSONE [PredniSONE] 10 mg PO DAILY 7 Days #21 tablet 05/10/18 [Rx] Allergies/Adverse Reactions: Allergy/AdvReac Type Severity Reaction Status Date / Time levofloxacin AdvReac See Verified 05/05/18 16:16 Comments Date of admission: 05/05/18 16:11 Primary care physician: PCP NONE Consults: 05/05/18 16:52 Consult to Case Management [CONS] Routine Comment: 05/05/18 16:54 Consult to Infectious Diseases [CONS] Routine Consulting Provider: Infectious Disease Jeaneth Reason for Consult: stenotrophomonas maltophilia PNA VS HAP multiple hospitalization - BAL positive for stenotrophomonas maltophilia Call Completed: No 05/06/18 17:14 Consult to Invasive Line Access Team [CONS] Routine Reason for Consult: Limited IV access Line Type: EPIV 05/07/18 15:45 Consult to Pulmonology [CONS] Routine Consulting Provider: Pulm Crit Care & Sleep Jeaneth Reason for Consult: multiple admission, has had BAL cultures and multiple other cultures positive with stenotrophomonas maltophilia, ID on board, acquired bronchomalacia Call Completed: No 05/09/18 08:54 Consult to Palliative Care [CONS] Routine Comment: Consulting Provider: Palliative Care Jeaneth Reason for Consult: COPD. Call Completed: Yes - Constitutional Vitals: Temp Pulse Resp BP Pulse Ox 98.0 F 70 15 123/79 98 05/10/18 05:12 05/10/18 05:12 05/10/18 07:23 05/10/18 05:12 05/10/18 09:43 Exam: General: Patient is alert, oriented, no acute distress, disheveled, obese Head: atraumatic, normocephalic, Eye: normal appearance, no scleral icterus, no conjunctival injection ENT: mucous membranes moist, normal external ear exam Neck: normal inspection, trachea midline, full ROM, no carotid bruits Chest: normal inspection, symmetric chest rise Respiratory: Decreased breath sounds bilaterally secondary to body habitus, occasional wheezing in anterior chest, crackles the posterior lung field (improved) Cardiovascular: Distant heart sounds secondary to body habitus , Regular rate and rhythm. s1 and s2 No clicks, rubs, gallops, or murmors. Abdomen: Bowel sounds present normoactive x-4 quadrants. Abdomen is soft, nondistended. no Epigastric tenderness. No guarding or rebound. No organomegaly noted, obese musculoskeletal: Spontaneously moving all extremities. no edema, no calf tenderness Skin: warm, dry, intact. Notable ecchymosis in the bilateral upper extremities in different stages of healing. Neuro: Alert and oriented x4. No focal deficit Psych: Patient's affect is normal - Patient Status Disposition: Transfer SNF Condition: Fair Functional capacity at discharge: uses cane/walker Overall status at discharge: patient is progressing back to baseline - Discharge Instructions Follow Up With: NONE,PCP [Primary Care Provider] - - Diet and Activity Activity: increase activity as tolerated Diet: advance to your usual diet
[2018-05-10] MEDS ORDERED: predniSONE 20 MG TABLET PO SCH (10:00)
[2018-05-10] MEDS: Budesonide/Formoterol 160/4.5 1 PUFF INH IH SCH (11:16)
--- NOTE | 2018-05-10 14:27 | Physician Discharge Referral ---
ExtendedCare Referral Info Provider in Charge after Transfer: PCP Institutional Level of Care: Skilled - Diagnosis (1) HAP (hospital-acquired pneumonia) Priority: Primary Status: Acute (2) Acute and chronic respiratory failure Priority: Secondary Status: Acute (3) COPD exacerbation Priority: Secondary Status: Acute (4) Acquired bronchomalacia Priority: Secondary Status: Chronic (5) MYNOR (obstructive sleep apnea) Priority: Secondary Status: Chronic (6) Pulmonary embolism Priority: Secondary Status: Chronic (7) DVT prophylaxis Priority: Secondary Status: Acute (8) Obesity (BMI 30.0-34.9) Priority: Secondary Status: Chronic - Transfer Medications Prescriptions: Piperacillin/Tazobactam [Zosyn] 3.375 gm IVPB Q8HR 7 Days #21 vial Minocycline [Minocin] 100 mg PO Q12HR 7 Days #14 capsule predniSONE [PredniSONE] 10 mg PO DAILY 7 Days #21 tablet Home Medications: Oxygen 4 l NS CONT 07/25/17 [History] Roflumilast [Daliresp] 500 mcg PO DAILY 07/25/17 [History] Loratadine [Claritin] 10 mg PO DAILY #30 tablet 11/09/17 [Rx] Gabapentin [Neurontin] 300 mg PO TID 12/31/17 [History] Albuterol Sulfate [Albuterol Inhaler] 2 puff IH Q4H PRN #1 inhaler 01/17/18 [Rx] Rivaroxaban [Xarelto] 20 mg PO QPM 03/06/18 [History] Potassium Chloride 20 meq PO DAILY #30 tab.er.prt 04/11/18 [Rx] Sennosides/Docusate Sodium [Senna Plus] 2 each PO BID 30 Days #60 tablet 04/23/18 [Rx] Mometasone/Formoterol [Dulera 100 Mcg/5 Mcg Inhaler] 2 puff IH BID 04/25/18 [History] Ipratropium/Albuterol Sulfate [Iprat-Albut 0.5-3(2.5) mg/3 ml] 1 vial IH Q4H #120 04/29/18 [Rx] Furosemide [Lasix] 20 mg PO TID 05/05/18 [History] Omeprazole [PriLOSEC] 20 mg PO DAILY 05/05/18 [History] Piperacillin/Tazobactam [Zosyn] 3.375 gm IVPB Q8HR 7 Days #21 vial 05/09/18 [Rx] Minocycline [Minocin] 100 mg PO Q12HR 7 Days #14 capsule 05/10/18 [Rx] predniSONE [PredniSONE] 10 mg PO DAILY 7 Days #21 tablet 05/10/18 [Rx] Allergies/Adverse Reactions: Allergy/AdvReac Type Severity Reaction Status Date / Time levofloxacin AdvReac See Verified 05/05/18 16:16 Comments - Respiratory Orders Oxygen / L per min Smoking Cessation: Smoking cessation has been advised. For more information, call the [employer] Quit Line at 1-613-AIBG-NOW. - Ancillary Orders May use pressure relief devices daily prn - Advance Directives Code Status: Full Code - Mobility Orders Ambulate - Rehabiliation Orders Rehab Potential: Good Rehab Orders: ROM Exercises, Evaluation for Physical Therapy, Evaluation for Occupational Therapy - Diet Orders Cardiac CERTIFICATION: I certify that the transfer of the above named patient to an Extended Care Facility is necessary for the continuing treatment of the diagnosis listed. The above information is true and accurate reflection of patient's current condition. Confidential - Redisclosure prohibited without a patient's written consent.
[2018-05-10 14:46] VITALS: BP 114/68
[2018-05-10] MEDS: *HR* Rivaroxaban 10 MG TABLET PO SCH (16:54)
[2018-05-11 10:41] LABS: Immunoglobulin A 61 mg/dL (68-408); Immunoglobulin G 491 mg/dL (768-1632); Immunoglobulin M 20 mg/dL (35-263)
== END 2018-05-10 17:46 | DRG 720 ==
LOC: EMEROOARM 11:58 → 3ANU 11:58 → SUATTDRO 16:11 → 3ANU 17:56
PROVIDERS: ADMIT Internal Medicine; ATTEND Internal Medicine

== ENCOUNTER 2018-06-03 20:17 | Inpatient (IN) ==
[2018-06-03] MEDS ORDERED: Ipratropium/Albuterol Neb 3 ML IH ONE (20:38)
[2018-06-03] MEDS ORDERED: methylPREDNISolone 125 MG/2 ML VIAL IVP ONE (20:38)
[2018-06-03] MEDS ORDERED: Isovue-370 500 ML INFUS..BTL IV ONE (20:38)
[2018-06-03 21:50] LABS: Basophils # 0.1 K/mcL (0.0-0.2); Basophils % 0.5 %; Eosinophils # 0.1 K/mcL (0.0-0.6); Eosinophils % 1.5 %; Hematocrit 34.2 % (37.5-50.1); Hemoglobin 10.4 g/dL (12.9-16.9); Immature Granulocytes % 0.4 % (0-4); Lymphocytes # 4.5 K/mcL (0.6-4.6); Lymphocytes % 48.2 %; Mean Corpuscular HGB Conc 30.4 g/dL (31.6-35.5); Mean Corpuscular Hemoglobin 26.5 pg (28.0-33.3); Mean Platelet Volume 9.4 fL (9.4-12.4); Monocytes # 0.5 K/mcL (0.0-1.3); Monocytes % 5.2 %; Neutrophils # 4.1 K/mcL (1.6-8.9); Platelet Count 348 K/mcL (140-400); Red Blood Count 3.93 M/mcL (4.19-5.50); Red Cell Distribution Width 16.6 % (11.5-14.5); Segmented Neutrophils % 44.2 %
[2018-06-03 21:57] LABS: INR 2.5; Prothrombin Time 27.7 Seconds (9.4-12.1)
[2018-06-03 22:00] LABS: Activated Partial Thrombo Time 41.2 Seconds (26.0-36.0)
[2018-06-03 22:12] LABS: BUN/Creatinine Ratio 21 (6-26); Blood Urea Nitrogen 13 mg/dL (6-20); Calcium 9.3 mg/dL (8.6-10.3); Carbon Dioxide 28 mEq/L (23-29); Chloride 105 mEq/L (98-107); Glucose 93 mg/dL (70-105); Osmolality,Calculated 296 (280-300); Potassium 3.4 mEq/L (3.5-5.1); Sodium 143 mEq/L (136-145); eGFR For Non-African Americans > 60 (> 60)
--- NOTE | 2018-06-03 22:20 | Emergency Department Note ---
Disposition Clinical Impression: COPD exacerbation, Elevated troponin Disposition: Admitted As Inpatient Condition: Fair Arrhythmia/Palpitations HPI - General Chief Complaint: ED Arrhythmia/Palpitations Stated Complaint: PHYLLIS/Heart rate high Time Seen by Provider: 06/03/18 20:23 Source: patient Mode of arrival: ambulatory Limitations: no limitations Nursing Notes Reviewed: Yes Vital Signs Reviewed: Yes - History of Present Illness HPI Narrative: 58-year-old male presents emergency Department with concerns of difficulty in breathing and swelling of his face. Patient states he has a history of COPD and this feels somewhat different. He does not describe some chest pain center of his chest that does not radiate. He has been taking 20 mg of prednisone daily over the past 2-3 months. It is unclear whether this was prescribed by the physician or if he is taking "leftover" prednisone pills. Patient denies fever, chills, vomiting, diarrhea, recent trauma. - Related Data Home Medications Medication Instructions Recorded Confirmed RX: Oxygen 4 l NS CONT 07/25/17 06/05/18 RX: Roflumilast [Daliresp] 500 mcg PO DAILY 07/25/17 06/05/18 RX: Gabapentin [Neurontin] 300 mg PO TID 12/31/17 06/05/18 RX: Rivaroxaban [Xarelto] 20 mg PO QPM 03/06/18 06/05/18 RX: Mometasone/Formoterol [Dulera 2 puff IH BID 04/25/18 06/05/18 100 Mcg/5 Mcg Inhaler] RX: Furosemide [Lasix] 20 mg PO TID 05/05/18 06/05/18 RX: Omeprazole [PriLOSEC] 20 mg PO DAILY 05/05/18 06/05/18 Previous Rx's Medication Instructions Recorded RX: Loratadine [Claritin] 10 mg PO DAILY #30 tablet 11/09/17 RX: Albuterol Sulfate [Albuterol 2 puff IH Q4H PRN #1 inhaler 01/17/18 Inhaler] RX: Potassium Chloride 20 meq PO DAILY #30 tab.er.prt 04/11/18 RX: Ipratropium/Albuterol Sulfate 1 vial IH Q4H #120 04/29/18 [Iprat-Albut 0.5-3(2.5) mg/3 ml] RX: Azithromycin 250 mg PO DAILY #3 tablet 06/05/18 predniSONE [PredniSONE] 10 mg PO DAILY #49 tablet 06/05/18 Allergies Allergy/AdvReac Type Severity Reaction Status Date / Time levofloxacin AdvReac See Verified 05/05/18 16:16 Comments All systems ED: reviewed and negative except as stated. Review of Systems: As Per HPI Past Medical History - Past Medical History Attestation: Yes The following information was validated with the patient. Source: patient Medical history: Reports: CHF, COPD, hyperlipidemia, hypertension, pulmonary embolus Surgical history: Reports: no surgical history Psychiatric history: Reports: anxiety, depression - Social History Smoking Status: Former smoker Smokeless Tobacco Status: No Alcohol use: Reports: none Drug use: Reports: marijuana Physical Exam General: Alert and in no acute distress Skin: Warm, dry, intact Head: Normocephalic and atraumatic Neck: Supple, trachea midline and no tenderness Cardiovascular: RRR, no murmur, normal perfusion Respiratory: Wheezing present on the bilateral posterior lung carmen, or respiratory distress Musculoskeletal: Normal strength, no tenderness, swelling or deformity GI: Soft, nontender, nondistended. Bowel sounds present Neuro: A&O to person, place, time and situation. No focal deficits noted on exam Psychiatric: cooperative and appropriate mood and affect. Course Vital Signs Temperature 98.6 F 06/03/18 20:20 Pulse Rate 81 06/03/18 20:20 Respiratory Rate 20 06/03/18 20:20 Blood Pressure 128/74 06/03/18 20:20 O2 Sat by Pulse Oximetry 92 06/03/18 20:20 Temperature 96.4 F L 06/05/18 07:00 Pulse Rate 62 06/05/18 07:00 Respiratory Rate 18 06/05/18 10:29 Blood Pressure 114/72 06/05/18 07:00 O2 Sat by Pulse Oximetry 98 06/05/18 10:29 Oxygen Delivery Oxygen Delivery Nasal Cannula Arrhythmia/Palpitations - [facility] Narrative Medical decision making narrative: Patient complained of swelling of his face which could be due to secondary to superior vena cava syndrome versus secondary affects from daily prednisone. Laboratory evaluation and imaging pending at the end of my shift. Patient care will be transferred to Dr. Cuca [place] pending further evaluation and disposition. Patient given duo nebs and Solu-Medrol in the emergency department for treatment of his likely acute COPD exacerbation. - Medical Records Medical records reviewed: Yes I reviewed the patient's medical records. - Lab Data Lab results reviewed: Yes I reviewed the patient's lab results. Result diagrams: 06/05/18 03:55 06/05/18 03:55 Lab Results 06/03/18 06/03/18 06/03/18 Range/Units 20:25 20:25 20:25 WBC 9.3 (4.3-11.1) K/mcL RBC 3.93 L (4.19-5.50) M/mcL Hgb 10.4 L (12.9-16.9) g/dL Hct 34.2 L (37.5-50.1) % MCV 87.0 (83.0-100.0) fL MCH 26.5 L (28.0-33.3) pg MCHC 30.4 L (31.6-35.5) g/dL RDW 16.6 H (11.5-14.5) % Plt Count 348 (140-400) K/mcL MPV 9.4 (9.4-12.4) fL Immature Gran % 0.4 (0-4) % Seg Neutrophils % 44.2 % Lymphocytes % 48.2 % Monocytes % 5.2 % Eosinophils % 1.5 % Basophils % 0.5 % Neutrophils # 4.1 (1.6-8.9) K/mcL Lymphocytes # 4.5 (0.6-4.6) K/mcL Monocytes # 0.5 (0.0-1.3) K/mcL Eosinophils # 0.1 (0.0-0.6) K/mcL Basophils # 0.1 (0.0-0.2) K/mcL PT 27.7 H (9.4-12.1) Seconds INR 2.5 APTT 41.2 H (26.0-36.0) Seconds Heparin Anti-Xa, Unfract (0.30-0.70) IU/mL Sodium 143 (136-145) mEq/L Potassium 3.4 L (3.5-5.1) mEq/L Chloride 105 (98-107) mEq/L Carbon Dioxide 28 (23-29) mEq/L BUN 13 (6-20) mg/dL Creatinine 0.61 L (0.70-1.30) mg/dL Est GFR ( Amer) > 60 (> 60) Est GFR (Non-Af Amer) > 60 (> 60) BUN/Creatinine Ratio 21 (6-26) Glucose 93 (70-105) mg/dL POC Glucose (70-99) mg/dL Calculated Osmolality 296 (280-300) Calcium 9.3 (8.6-10.3) mg/dL Troponin I 0.09 H* (< 0.04) ng/mL TSH 0.545 (0.340-5.600) mcIU/mL Chlamy pneumoniae PCR (Not Detect) Adenovirus (PCR) (Not Detect) B. pertussis DNA (PCR) (Not Detect) B.parapertussis DNA PCR (Not Detect) Coronavirus OC43 (PCR) (Not Detect) Coronavirus HKU1 (PCR) (Not Detect) Coronavirus 229E (PCR) (Not Detect) Coronavirus NL63 (PCR) (Not Detect) Human Metapneumovir PCR (Not Detect) Influenza A (H1) PCR (Not Detect) Influ A (H1N1/09) PCR (Not Detect) Influenza A (H3) PCR (Not Detect) Influenza A Untype (PCR) (Not Detect) Influenza Type B (PCR) (Not Detect) M.pneumoniae DNA (PCR) (Not Detect) Parainfluenza 1 (PCR) (Not Detect) Parainfluenza 2 (PCR) (Not Detect) Parainfluenza 3 (PCR) (Not Detect) Parainfluenza 4 (PCR) (Not Detect) RSV (PCR) (Not Detect) Entero/Rhino (PCR) (Not Detect) 06/04/18 06/04/18 06/04/18 Range/Units 00:02 00:02 03:40 WBC 7.5 (4.3-11.1) K/mcL RBC 3.80 L (4.19-5.50) M/mcL Hgb 10.1 L (12.9-16.9) g/dL Hct 32.6 L (37.5-50.1) % MCV 85.8 (83.0-100.0) fL MCH 26.6 L (28.0-33.3) pg MCHC 31.0 L (31.6-35.5) g/dL RDW 16.8 H (11.5-14.5) % Plt Count 343 (140-400) K/mcL MPV 9.7 (9.4-12.4) fL Immature Gran % (0-4) % Seg Neutrophils % % Lymphocytes % % Monocytes % % Eosinophils % % Basophils % % Neutrophils # (1.6-8.9) K/mcL Lymphocytes # (0.6-4.6) K/mcL Monocytes # (0.0-1.3) K/mcL Eosinophils # (0.0-0.6) K/mcL Basophils # (0.0-0.2) K/mcL PT 23.1 H (9.4-12.1) Seconds INR 2.0 APTT (26.0-36.0) Seconds Heparin Anti-Xa, Unfract > 2.00 H* (0.30-0.70) IU/mL Sodium (136-145) mEq/L Potassium (3.5-5.1) mEq/L Chloride (98-107) mEq/L Carbon Dioxide (23-29) mEq/L BUN (6-20) mg/dL Creatinine (0.70-1.30) mg/dL Est GFR ( Amer) (> 60) Est GFR (Non-Af Amer) (> 60) BUN/Creatinine Ratio (6-26) Glucose (70-105) mg/dL POC Glucose (70-99) mg/dL Calculated Osmolality (280-300) Calcium (8.6-10.3) mg/dL Troponin I < 0.03 (< 0.04) ng/mL TSH (0.340-5.600) mcIU/mL Chlamy pneumoniae PCR (Not Detect) Adenovirus (PCR) (Not Detect) B. pertussis DNA (PCR) (Not Detect) B.parapertussis DNA PCR (Not Detect) Coronavirus OC43 (PCR) (Not Detect) Coronavirus HKU1 (PCR) (Not Detect) Coronavirus 229E (PCR) (Not Detect) Coronavirus NL63 (PCR) (Not Detect) Human Metapneumovir PCR (Not Detect) Influenza A (H1) PCR (Not Detect) Influ A (H1N1/09) PCR (Not Detect) Influenza A (H3) PCR (Not Detect) Influenza A Untype (PCR) (Not Detect) Influenza Type B (PCR) (Not Detect) M.pneumoniae DNA (PCR) (Not Detect) Parainfluenza 1 (PCR) (Not Detect) Parainfluenza 2 (PCR) (Not Detect) Parainfluenza 3 (PCR) (Not Detect) Parainfluenza 4 (PCR) (Not Detect) RSV (PCR) (Not Detect) Entero/Rhino (PCR) (Not Detect) 06/04/18 06/04/18 06/04/18 Range/Units 03:40 05:36 08:57 WBC (4.3-11.1) K/mcL RBC (4.19-5.50) M/mcL Hgb (12.9-16.9) g/dL Hct (37.5-50.1) % MCV (83.0-100.0) fL MCH (28.0-33.3) pg MCHC (31.6-35.5) g/dL RDW (11.5-14.5) % Plt Count (140-400) K/mcL MPV (9.4-12.4) fL Immature Gran % (0-4) % Seg Neutrophils % % Lymphocytes % % Monocytes % % Eosinophils % % Basophils % % Neutrophils # (1.6-8.9) K/mcL Lymphocytes # (0.6-4.6) K/mcL Monocytes # (0.0-1.3) K/mcL Eosinophils # (0.0-0.6) K/mcL Basophils # (0.0-0.2) K/mcL PT (9.4-12.1) Seconds INR APTT (26.0-36.0) Seconds Heparin Anti-Xa, Unfract (0.30-0.70) IU/mL Sodium 138 (136-145) mEq/L Potassium 4.0 (3.5-5.1) mEq/L Chloride 106 (98-107) mEq/L Carbon Dioxide 26 (23-29) mEq/L BUN 14 (6-20) mg/dL Creatinine 0.53 L (0.70-1.30) mg/dL Est GFR ( Amer) > 60 (> 60) Est GFR (Non-Af Amer) > 60 (> 60) BUN/Creatinine Ratio 26 (6-26) Glucose 161 H (70-105) mg/dL POC Glucose 161 H (70-99) mg/dL Calculated Osmolality 290 (280-300) Calcium 9.2 (8.6-10.3) mg/dL Troponin I (< 0.04) ng/mL TSH (0.340-5.600) mcIU/mL Chlamy pneumoniae PCR Not Detected (Not Detect) Adenovirus (PCR) Not Detected (Not Detect) B. pertussis DNA (PCR) Not Detected (Not Detect) B.parapertussis DNA PCR Not Detected (Not Detect) Coronavirus OC43 (PCR) Not Detected (Not Detect) Coronavirus HKU1 (PCR) Not Detected (Not Detect) Coronavirus 229E (PCR) Not Detected (Not Detect) Coronavirus NL63 (PCR) Not Detected (Not Detect) Human Metapneumovir PCR Not Detected (Not Detect) Influenza A (H1) PCR Not Detected (Not Detect) Influ A (H1N1/09) PCR Not Detected (Not Detect) Influenza A (H3) PCR Not Detected (Not Detect) Influenza A Untype (PCR) Not Detected (Not Detect) Influenza Type B (PCR) Not Detected (Not Detect) M.pneumoniae DNA (PCR) Not Detected (Not Detect) Parainfluenza 1 (PCR) Not Detected (Not Detect) Parainfluenza 2 (PCR) Not Detected (Not Detect) Parainfluenza 3 (PCR) Not Detected (Not Detect) Parainfluenza 4 (PCR) Not Detected (Not Detect) RSV (PCR) Not Detected (Not Detect) Entero/Rhino (PCR) Not Detected (Not Detect) 06/04/18 06/04/18 Range/Units 10:01 11:10 WBC (4.3-11.1) K/mcL RBC (4.19-5.50) M/mcL Hgb (12.9-16.9) g/dL Hct (37.5-50.1) % MCV (83.0-100.0) fL MCH (28.0-33.3) pg MCHC (31.6-35.5) g/dL RDW (11.5-14.5) % Plt Count (140-400) K/mcL MPV (9.4-12.4) fL Immature Gran % (0-4) % Seg Neutrophils % % Lymphocytes % % Monocytes % % Eosinophils % % Basophils % % Neutrophils # (1.6-8.9) K/mcL Lymphocytes # (0.6-4.6) K/mcL Monocytes # (0.0-1.3) K/mcL Eosinophils # (0.0-0.6) K/mcL Basophils # (0.0-0.2) K/mcL PT (9.4-12.1) Seconds INR APTT (26.0-36.0) Seconds Heparin Anti-Xa, Unfract (0.30-0.70) IU/mL Sodium (136-145) mEq/L Potassium (3.5-5.1) mEq/L Chloride (98-107) mEq/L Carbon Dioxide (23-29) mEq/L BUN (6-20) mg/dL Creatinine (0.70-1.30) mg/dL Est GFR ( Amer) (> 60) Est GFR (Non-Af Amer) (> 60) BUN/Creatinine Ratio (6-26) Glucose (70-105) mg/dL POC Glucose 138 H (70-99) mg/dL Calculated Osmolality (280-300) Calcium (8.6-10.3) mg/dL Troponin I < 0.03 (< 0.04) ng/mL TSH (0.340-5.600) mcIU/mL Chlamy pneumoniae PCR (Not Detect) Adenovirus (PCR) (Not Detect) B. pertussis DNA (PCR) (Not Detect) B.parapertussis DNA PCR (Not Detect) Coronavirus OC43 (PCR) (Not Detect) Coronavirus HKU1 (PCR) (Not Detect) Coronavirus 229E (PCR) (Not Detect) Coronavirus NL63 (PCR) (Not Detect) Human Metapneumovir PCR (Not Detect) Influenza A (H1) PCR (Not Detect) Influ A (H1N1/09) PCR (Not Detect) Influenza A (H3) PCR (Not Detect) Influenza A Untype (PCR) (Not Detect) Influenza Type B (PCR) (Not Detect) M.pneumoniae DNA (PCR) (Not Detect) Parainfluenza 1 (PCR) (Not Detect) Parainfluenza 2 (PCR) (Not Detect) Parainfluenza 3 (PCR) (Not Detect) Parainfluenza 4 (PCR) (Not Detect) RSV (PCR) (Not Detect) Entero/Rhino (PCR) (Not Detect) - Radiology Data Radiology results reviewed: Yes I reviewed the patient's radiology results. - EKG Data EKG attestation: Yes I reviewed and interpreted this EKG. EKG results narrative: Normal sinus rhythm with rate of 73 with PACs without evidence of STEMI or other dysrhythmia.
[2018-06-03 22:21] LABS: Troponin I 0.09 ng/mL (< 0.04)
--- NOTE | 2018-06-03 22:24 | Emergency Department Note ---
Disposition Clinical Impression: COPD exacerbation, Elevated troponin Disposition: Admitted As Inpatient Condition: Good Referrals: NONE,PCP [Primary Care Provider] - Forms: ED Satisfaction Letter Time of Disposition: 23:57 General Adult HPI - General Chief complaint: ED Arrhythmia/Palpitations Stated complaint: PHYLLIS/Heart rate high Time Seen by Provider: 06/03/18 20:23 Source: patient Mode of arrival: ambulatory Limitations: no limitations - History of Present Illness Pain Scale: 8 - Related Data Home Medications Medication Instructions Recorded Confirmed Oxygen 4 l NS CONT 07/25/17 05/05/18 Roflumilast [Daliresp] 500 mcg PO DAILY 07/25/17 05/05/18 Gabapentin [Neurontin] 300 mg PO TID 12/31/17 05/05/18 Rivaroxaban [Xarelto] 20 mg PO QPM 03/06/18 05/05/18 Mometasone/Formoterol [Dulera 100 2 puff IH BID 04/25/18 05/05/18 Mcg/5 Mcg Inhaler] Furosemide [Lasix] 20 mg PO TID 05/05/18 05/05/18 Omeprazole [PriLOSEC] 20 mg PO DAILY 05/05/18 05/05/18 Previous Rx's Medication Instructions Recorded Loratadine [Claritin] 10 mg PO DAILY #30 tablet 11/09/17 Albuterol Sulfate [Albuterol 2 puff IH Q4H PRN #1 inhaler 01/17/18 Inhaler] Potassium Chloride 20 meq PO DAILY #30 tab.er.prt 04/11/18 Ipratropium/Albuterol Sulfate 1 vial IH Q4H #120 04/29/18 [Iprat-Albut 0.5-3(2.5) mg/3 ml] Allergies Allergy/AdvReac Type Severity Reaction Status Date / Time levofloxacin AdvReac See Verified 05/05/18 16:16 Comments Past Medical History - Past Medical History Medical history: Reports: CHF, COPD, hyperlipidemia, hypertension, pulmonary embolus Surgical history: Reports: no surgical history Psychiatric history: Reports: anxiety, depression - Social History Smoking Status: Former smoker Smokeless Tobacco Status: No Alcohol use: Reports: none Drug use: Reports: marijuana Physical Exam - General Limitations: no limitations Course Course Narrative: accepted sign out from Dr. Charlie Mcgovern. This patient is pending a CTA chest and will need to be admitted regardles after ruling out PE or SVC syndrome. Tehre is concern that he has cushings reflex with moons facies. - Consultations Consultation #1: discussed case with Dr. Daly and he accepts patient to his service. Does not want him on heparin at this time. Time: 23:57 Vital Signs Temperature 98.6 F 06/03/18 20:20 Pulse Rate 81 06/03/18 20:20 Respiratory Rate 20 06/03/18 20:20 Blood Pressure 128/74 06/03/18 20:20 O2 Sat by Pulse Oximetry 92 06/03/18 20:20 Temperature 98.6 F 06/03/18 22:28 Pulse Rate 75 06/03/18 23:01 Respiratory Rate 20 06/03/18 23:01 Blood Pressure 144/82 06/03/18 23:01 O2 Sat by Pulse Oximetry 97 06/03/18 23:01 Oxygen Delivery Oxygen Delivery Nasal Cannula Medical Decision Making - Lab Data Result diagrams: 06/03/18 20:25 06/03/18 20:25 Lab Results 06/03/18 06/03/18 06/03/18 Range/Units 20:25 20:25 20:25 WBC 9.3 (4.3-11.1) K/mcL RBC 3.93 L (4.19-5.50) M/mcL Hgb 10.4 L (12.9-16.9) g/dL Hct 34.2 L (37.5-50.1) % MCV 87.0 (83.0-100.0) fL MCH 26.5 L (28.0-33.3) pg MCHC 30.4 L (31.6-35.5) g/dL RDW 16.6 H (11.5-14.5) % Plt Count 348 (140-400) K/mcL MPV 9.4 (9.4-12.4) fL Immature Gran % 0.4 (0-4) % Seg Neutrophils % 44.2 % Lymphocytes % 48.2 % Monocytes % 5.2 % Eosinophils % 1.5 % Basophils % 0.5 % Neutrophils # 4.1 (1.6-8.9) K/mcL Lymphocytes # 4.5 (0.6-4.6) K/mcL Monocytes # 0.5 (0.0-1.3) K/mcL Eosinophils # 0.1 (0.0-0.6) K/mcL Basophils # 0.1 (0.0-0.2) K/mcL PT 27.7 H (9.4-12.1) Seconds INR 2.5 APTT 41.2 H (26.0-36.0) Seconds Sodium 143 (136-145) mEq/L Potassium 3.4 L (3.5-5.1) mEq/L Chloride 105 (98-107) mEq/L Carbon Dioxide 28 (23-29) mEq/L BUN 13 (6-20) mg/dL Creatinine 0.61 L (0.70-1.30) mg/dL Est GFR ( Amer) > 60 (> 60) Est GFR (Non-Af Amer) > 60 (> 60) BUN/Creatinine Ratio 21 (6-26) Glucose 93 (70-105) mg/dL Calculated Osmolality 296 (280-300) Calcium 9.3 (8.6-10.3) mg/dL Troponin I 0.09 H* (< 0.04) ng/mL TSH 0.545 (0.340-5.600) mcIU/mL
[2018-06-03 22:26] LABS: Thyroid Stimulating Hormone 0.545 mcIU/mL (0.340-5.600)
[2018-06-03] MEDS ORDERED: Aspirin 325 MG TABLET PO ONE (22:26)
[2018-06-03] MEDS ORDERED: *HR* Heparin 5,000 UNIT/ML VIAL IVP PRN ×2 (23:34)
[2018-06-03] MEDS ORDERED: *HR* Heparin 5,000 UNIT/ML VIAL IVP ONE (23:34)
[2018-06-03] MEDS ORDERED: Heparin 25,000 UNIT/500 ML D5W 25,000 UNIT/500 ML BAG IVC SCH (23:45)
[2018-06-04 00:14] LABS: Hematocrit 32.6 % (37.5-50.1); Hemoglobin 10.1 g/dL (12.9-16.9); Mean Corpuscular Hemoglobin 26.6 pg (28.0-33.3); Mean Corpuscular Volume 85.8 fL (83.0-100.0); Mean Platelet Volume 9.7 fL (9.4-12.4); Platelet Count 343 K/mcL (140-400); Red Cell Distribution Width 16.8 % (11.5-14.5)
[2018-06-04 00:24] LABS: Prothrombin Time 23.1 Seconds (9.4-12.1)
[2018-06-04 00:42] LABS: Heparin anti-factor XA UFH > 2.00 IU/mL (0.30-0.70)
[2018-06-04] MEDS ORDERED: Naloxone 0.4 MG/ML INJ IVP PRN (03:10)
[2018-06-04 04:23] LABS: Blood Urea Nitrogen 14 mg/dL (6-20); Calcium 9.2 mg/dL (8.6-10.3); Carbon Dioxide 26 mEq/L (23-29); Chloride 106 mEq/L (98-107); Glucose 161 mg/dL (70-105); Osmolality,Calculated 290 (280-300); Sodium 138 mEq/L (136-145)
[2018-06-04] MEDS ORDERED: Albuterol 2.5 MG/3 ML NEBULIZER IH PRN (05:05)
[2018-06-04 05:07] LABS: BUN/Creatinine Ratio 26 (6-26); eGFR For Non-African Americans > 60 (> 60)
[2018-06-04] MEDS: Ipratropium/Albuterol Neb 3 ML IH SCH ×4 (05:29→22:35)
--- NOTE | 2018-06-04 06:01 | Internal Med History&Physical ---
Date of Encounter: 06/04/18 Time of Encounter: 03:30 Internal Medicine - H&P: HPI Chief complaint: Acute hypoxic respiratory failure Admitted From: Emergency Dept Plans for Post Hospital Care: Home History of present illness: Mr. Blanchard is a 58 year old male Patient presented to the emergency room with 1 week history of difficulty breathing. He is also noticed some swelling in his face. He has a significant history of COPD with multiple hospital admissions for shortness of breath. He also had some chest pain located in center of his chest without radiation. He describes the pain as tightness, some stiffness in his neck. He is also been dealing with some upper respiratory congestion and increased oxygen need with ambulation. According to ER documentation he has been taking 20 mg of prednisone daily for the past 2-3 months. He came to the hospital for further evaluation. In the emergency room, patient's white count was 7.5, hemoglobin 10.1. BMP was within normal limits. Patient's initial troponin was elevated at 0.09. Patient's chest x-ray showed no change in bibasilar airspace disease when com pared to previous chest x-rays. A CTA was ordered to further evaluate for possible superior vena cava syndrome, which showed no PE but did show moderate pulmonary emphysema with stable right upper lobe nodule compared to previous exam from March 20. Patient was given a 325 mg dose of aspirin, initially started on heparin drip, DuoNeb breathing treatments as well as IV steroids. EKG was noted to show normal sinus rhythm with a rate of [address] elevations or other dysrhythmia. The heparin drip was discontinued prior to his arrival to the medical floor. Upon my evaluation, patient states that he would like his BiPAP mask. He denies chest pain, diarrhea, constipation, abdominal pain, nausea and vomiting. He first started noticing his facial swelling over the last several days. Past Med Surg Social Fam HX - Past Medical History Medical history: CHF, COPD, hyperlipidemia, hypertension, pulmonary embolus Additional medical history: umbilical hernia Psychiatric history: anxiety, depression - Past Surgical History Surgical History: no surgical history - Social History Smoking Status: Former smoker Smokeless Tobacco Status: No Alcohol use: none Drug use: marijuana - Family History Father Living Status: Hx Family Cancer: Yes (colon) Mother Living Status: Hx Family Cancer: Yes Internal Medicine - H&P: Meds Oxygen 4 l NS CONT 03/06/18 [History] Roflumilast [Daliresp] 500 mcg PO DAILY 07/25/17 [History] Loratadine [Claritin] 10 mg PO DAILY #30 tablet 11/09/17 [Rx] Gabapentin [Neurontin] 300 mg PO TID 12/31/17 [History] Albuterol Sulfate [Albuterol Inhaler] 2 puff IH Q4H PRN #1 inhaler 01/17/18 [Rx] Rivaroxaban [Xarelto] 20 mg PO QPM 03/06/18 [History] Potassium Chloride 20 meq PO DAILY #30 tab.er.prt 04/11/18 [Rx] Mometasone/Formoterol [Dulera 100 Mcg/5 Mcg Inhaler] 2 puff IH BID 04/25/18 [H istory] Ipratropium/Albuterol Sulfate [Iprat-Albut 0.5-3(2.5) mg/3 ml] 1 vial IH Q4H #120 04/29/18 [Rx] Furosemide [Lasix] 20 mg PO TID 05/05/18 [History] Omeprazole [PriLOSEC] 20 mg PO DAILY 05/05/18 [History] Allergy/AdvReac Type Severity Reaction Status Date / Time levofloxacin AdvReac See Verified 05/05/18 16:16 Comments All Systems PM: A 10-system review of systems was performed and is negative for pertinent findings except as documented above in the HPI. - Constitutional Vitals: Temp Pulse Resp BP Pulse Ox 98.5 F 62 14 122/77 98 06/04/18 04:57 06/04/18 04:57 06/04/18 05:30 06/04/18 04:57 06/04/18 05:30 General appearance: Present: cooperative, A&O X 3, pleasant, no acute distress, answers questions appropriately Exam: - - Head Additional comments: Patient's face appears swollen but not tender with palpation. - Eye Eye exam: Present: EOMI, normal appearance - Neck Neck exam general surgery: Present: full ROM Additional comments: Baseline range of motion of the neck - Respiratory Respiratory exam: Present: rales, wheezes. Absent: CTAB, respiratory distress, rhonchi - Cardiovascular Cardiovascular exam: Present: RRR. Absent: diastolic murmur, systolic murmur - GI/Abdominal GI/Abdominal exam: Present: normal bowel sounds, soft. Absent: tenderness - Extremities Exam Extremities exam: Present: warm, radial pulses palpable and symmetrical. Absent: calf tenderness, pedal edema, tenderness - Neurological Exam Neurological exam: Present: no focal deficits, strengths equal and symetr throughout. Absent: motor sensory deficit, facial droop, speech deficit - Skin Skin exam: Present: dry, normal color, warm Internal Med - H&P Results - Labs CBC & Chem 7: 06/04/18 00:02 06/04/18 03:40 Labs: Short CBC 06/03/18 06/04/18 Range/Units 20:25 00:02 WBC 9.3 7.5 (4.3-11.1) K/mcL Hgb 10.4 L 10.1 L (12.9-16.9) g/dL Hct 34.2 L 32.6 L (37.5-50.1) % Plt Count 348 343 (140-400) K/mcL Neutrophils # 4.1 (1.6-8.9) K/mcL BMP 06/03/18 06/04/18 20:25 03:40 Sodium 143 138 Potassium 3.4 L 4.0 Chloride 105 106 Carbon Dioxide 28 26 BUN 13 14 Creatinine 0.61 L 0.53 L Glucose 93 161 H Calcium 9.3 9.2 Cardiac Enzymes 06/03/18 06/04/18 Range/Units 20:25 03:40 Troponin I 0.09 H* < 0.03 (< 0.04) ng/mL - Impressions ITS Impressions Chest X-Ray 06/03/18 20:25 IMPRESSION: 1. No significant change. D/ / Dylon Aaron MD / Dylon Aaron MD Interpreting Provider: Dylon Aaron MD Chest CTA 06/03/18 20:38 IMPRESSION: No PE identified. Moderate pulmonary emphysema with a stable right upper lobe nodule compared to a previous exam from 03/20/2018. RECOMMENDATIONS: Fleischner Society guidelines for follow-up and management of incidentally detected pulmonary nodules: Single Solid Nodule: Nodule size less than 6 mm In a low-risk patient, no routine follow-up. In a high-risk patient, optional CT at 12 months. Nodule size equals 6-8 mm In a low-risk patient, CT at 6-12 months, then consider CT at 18-24 months. In a high-risk patient, CT at 6-12 months, then CT at 18-24 months. Nodule size greater than 8 mm In a low-risk patient, consider CT at 3 months, PET/CT, or tissue sampling. In a high-risk patient, consider CT at 3 months, PET/CT, or tissue sampling. . In a high-risk patient, CT at 3-6 months, then CT at 18-24 months. - Low risk patients include individuals with minimal or absent history of smoking and other known risk factors. - High risk patients include individuals with a history or smoking or known risk factors. Radiology 2017 http://pubs.rsna.org/doi/full/10.1148/radiol.6226765344 D/ / Brian Walsh MD / Brian Walsh MD Interpreting Provider: Brian Walsh MD - Assessment and plan (1) Acute and chronic respiratory failure with hypoxia Current Visit: No Status: Acute Assessment and plan: At home patient has required increased oxygen ambulation and exertion. He is on baseline 4 L of oxygen at home. Continue oxygen supplementation Treating for COPD exacerbation as below (2) COPD exacerbation Current Visit: Yes Status: Acute Assessment and plan: Patient has long history of COPD exacerbation with multiple hospitalizations. Boyd kearney has been taking chronic steroids apparently for several months now constantly. This has resulted in likely the facial swelling is observed on exam. Continue breathing treatments every 4 hours with when necessary albuterol Continue steroids, plan to begin long taper process at time of discharge Continue oxygen supplementation as required Start azithromycin IV Pulse ox bedside Cardiac monitoring Cardiac diet (3) Elevated troponin Current Visit: Yes Status: Acute Assessment and plan: The emergency room patient's troponin was elevated to 0.09. He had been started on heparin drip, but this was discontinued by the time he was sent to the medical floor. Repeat troponin was undetectable however. Patient did not have chest pain but said he did have some tightness which is most likely secondary to his shortness of breath. Continue to trend troponins laboratory monitor (4) MYNOR (obstructive sleep apnea) Current Visit: No Status: Chronic Assessment and plan: Continue BiPAP at night (5) Pulmonary nodule Current Visit: Yes Status: Acute Assessment and plan: As seen on patient's CT angiogram, patient has a 9.4 mm nodule in the right upper lobe that is stable compared to previous exam from 2-1/2 months ago. Recommendations for nodule size greater than [address] at 3 months or even tissue sampling. (6) DVT prophylaxis Current Visit: No Status: Acute Assessment and plan: Patient is on Eliquis for history of PE - Time Spent With Patient Total time spent is greater than 50% in coordination of care (as documented) at patient's floor/unit and/or counseling patient: Greater than 35 minutes
[2018-06-04] MEDS: Azithromycin 500 MG in D5% in Water 250 ML IVPB SCH (06:02)
--- NOTE | 2018-06-04 07:30 | Internal Med Progress Note ---
<ElmiraAnderson - Last Filed: 06/04/18 16:26> Hospitalist Progress Note - Encounter Date of Encounter: 06/04/18 Time of Encounter: 08:10 - Subjective Interval History: Jason Blanchard is a 58y/o male who presented to the ED on 06/04/18 for a 1 week history of SOB, facial swelling, and central chest pain w/o radiation. He has a significant history of COPD with multiple hospital admissions for exacerbation within the last year. He also has a history of CHF, COPD, HLD, HTN, and a PE. According to ER documentation and confirmed by the patient today he has been taking 20mg of prednisone, usually daily, for the last 2-3 months. In the ER the patient's initial troponin was elevated at 0.09, ECG showed NSR with occasional PACs, CXR showed no change when compared to previous studies. CTA showed no evidence of a PE, but showed a stable 9.4mm nodule in the right upper lobe, and moderate pulmonary emphysema. Today's troponins are <0.03. Today he states he is still SOB, and is on BiPap when talking to the patient. He was agitated he had not yet had breakfast, but was ordered NPO. He denies chest pain, abdominal pain, nausea, vomiting, diarrhea - Exam Vitals: Temp Pulse Resp BP Pulse Ox 97.5 F L 66 19 129/80 98 06/04/18 06:24 06/04/18 06:24 06/04/18 06:24 06/04/18 06:24 06/04/18 06:24 Exam: - HEENT: Face swollen, but not tender to palpation. - Respiratory: Diminshed breath sounds, and wheezes appreciated on exam. Pt is not in acute respiratory distress, and no rhonci or rales. - CV: RRR, no gallops, rubs, or murmurs - GI: BSx4, no tenderness to palpation, no guarding or rigidity, no hepatomegaly, no splenomegaly - Extremities: Warm, radial pulses present and +2 bilaterally, no cyanosis or clubbing - Neuro: AAOx3 - Assessment and Plan (1) Acute exacerbation of chronic obstructive airways disease Current Visit: Yes Status: Acute Assessment and Plan: - Pt has an extensive history of COPD exacerbations requiring hospitalization - He admits to using steroids chronically for several months now, probably leading to his facial swelling - CXR shows no significant change from prior studies - Chest CTA shows no evidence of PE, but shows moderate pulmonary emphysema, and a stable node (9.4mm) in the right upper lobe - Continue breathing treatments with albuterol every 4hrs - Continue O2 supplementation via BiPap - Continue azithromycin 500mg IV (Course day 1) - Continue Prednisone 40mg PO (Course day 1), will put on taper upon discharge - Continue to monitor O2sat - Cardiac monitoring - Pt should be NPO if he remains on continuous BiPap (2) MYNOR (obstructive sleep apnea) Current Visit: Yes Status: Chronic Assessment and Plan: - Pt is to continue BiPap, d/t hx of chronic COPD (3) Elevated troponin Current Visit: Yes Status: Acute Assessment and Plan: - Troponin was originally 0.09 in the ER, likely d/t demand ischemia secondary to COPD exacerbation - Pt started on heparin drip, but d/c'd upon admission - 2 sequential troponin measurements were <0.03 - No more serial troponin measurements needed (4) Pulmonary nodule Current Visit: Yes Status: Acute Assessment and Plan: - Stable 9.4mm nodule noted in right upper lobe on Chest CTA - For nodules >8mm found on CT, repeat CT in 3 months or sampling of the nodule is recommended (5) DVT prophylaxis Current Visit: Yes Status: Acute Assessment and Plan: Patient is on Xarelto from a history of PE DVT Prophylaxis: Pt is on Xarelto for a history of PE - Time Spent with Patient Total time spent is greater than 50% in coordination of care (as documented) at patient's floor/unit and/or counseling patient: Internal Medicine: Result - Labs CBC & Chem 7: 06/04/18 00:02 06/04/18 03:40 Labs: Short CBC 06/03/18 06/04/18 Range/Units 20:25 00:02 WBC 9.3 7.5 (4.3-11.1) K/mcL Hgb 10.4 L 10.1 L (12.9-16.9) g/dL Hct 34.2 L 32.6 L (37.5-50.1) % Plt Count 348 343 (140-400) K/mcL Neutrophils # 4.1 (1.6-8.9) K/mcL BMP 06/03/18 06/04/18 20:25 03:40 Sodium 143 138 Potassium 3.4 L 4.0 Chloride 105 106 Carbon Dioxide 28 26 BUN 13 14 Creatinine 0.61 L 0.53 L Glucose 93 161 H Calcium 9.3 9.2 Cardiac Enzymes 06/03/18 06/04/18 Range/Units 20:25 03:40 Troponin I 0.09 H* < 0.03 (< 0.04) ng/mL - ABG Interpretation ABG results: PT/INR, D-dimer PT 23.1 Seconds (9.4-12.1) H 06/04/18 00:02 - Impressions Impressions Chest X-Ray 06/03/18 20:25 IMPRESSION: 1. No significant change. D/ / Dylon Aaron MD / Dylon Aaron MD Interpreting Provider: Dylon Aaron MD Chest CTA 06/03/18 20:38 IMPRESSION: No PE identified. Moderate pulmonary emphysema with a stable right upper lobe nodule compared to a previous exam from 03/20/2018. RECOMMENDATIONS: Fleischner Society guidelines for follow-up and management of incidentally detected pulmonary nodules: Single Solid Nodule: Nodule size less than 6 mm In a low-risk patient, no routine follow-up. In a high-risk patient, optional CT at 12 months. Nodule size equals 6-8 mm In a low-risk patient, CT at 6-12 months, then consider CT at 18-24 months. In a high-risk patient, CT at 6-12 months, then CT at 18-24 months. Nodule size greater than 8 mm In a low-risk patient, consider CT at 3 months, PET/CT, or tissue sampling. In a high-risk patient, consider CT at 3 months, PET/CT, or tissue sampling. . In a high-risk patient, CT at 3-6 months, then CT at 18-24 months. - Low risk patients include individuals with minimal or absent history of smoking and other known risk factors. - High risk patients include individuals with a history or smoking or known risk factors. Radiology 2017 http://pubs.rsna.org/doi/full/10.1148/radiol.2288129104 D/ / Brian Walsh MD / Brian Walsh MD Interpreting Provider: Brian Walsh MD Consult Discharge Plan - Plan Referrals: NONE,PCP [Primary Care Provider] - <LakeishaAnnika Ramirez - Last Filed: 06/04/18 16:48> Hospitalist Progress Note - Encounter Date of Encounter: 06/04/18 - Exam Vitals: Temp Pulse Resp BP Pulse Ox 97.8 F 87 16 128/80 96 06/04/18 14:05 06/04/18 14:05 06/04/18 15:19 06/04/18 14:05 06/04/18 15:19 - Time Spent with Patient Total time spent is greater than 50% in coordination of care (as documented) at patient's floor/unit and/or counseling patient: Internal Medicine: Result - Labs CBC & Chem 7: 06/04/18 00:02 06/04/18 03:40 Labs: Short CBC 06/03/18 06/04/18 Range/Units 20:25 00:02 WBC 9.3 7.5 (4.3-11.1) K/mcL Hgb 10.4 L 10.1 L (12.9-16.9) g/dL Hct 34.2 L 32.6 L (37.5-50.1) % Plt Count 348 343 (140-400) K/mcL Neutrophils # 4.1 (1.6-8.9) K/mcL BMP 06/03/18 06/04/18 20:25 03:40 Sodium 143 138 Potassium 3.4 L 4.0 Chloride 105 106 Carbon Dioxide 28 26 BUN 13 14 Creatinine 0.61 L 0.53 L Glucose 93 161 H Calcium 9.3 9.2 Cardiac Enzymes 06/03/18 06/04/18 06/04/18 Range/Units 20:25 03:40 10:01 Troponin I 0.09 H* < 0.03 < 0.03 (< 0.04) ng/mL - ABG Interpretation ABG results: PT/INR, D-dimer PT 23.1 Seconds (9.4-12.1) H 06/04/18 00:02 - Impressions Impressions Chest X-Ray 06/03/18 20:25 IMPRESSION: 1. No significant change. D/ / Dylon Aaron MD / Dylon Aaron MD Interpreting Provider: Dylon Aaron MD Chest CTA 06/03/18 20:38 IMPRESSION: No PE identified. Moderate pulmonary emphysema with a stable right upper lobe nodule compared to a previous exam from 03/20/2018. RECOMMENDATIONS: Fleischner Society guidelines for follow-up and management of incidentally detected pulmonary nodules: Single Solid Nodule: Nodule size less than 6 mm In a low-risk patient, no routine follow-up. In a high-risk patient, optional CT at 12 months. Nodule size equals 6-8 mm In a low-risk patient, CT at 6-12 months, then consider CT at 18-24 months. In a high-risk patient, CT at 6-12 months, then CT at 18-24 months. Nodule size greater than 8 mm In a low-risk patient, consider CT at 3 months, PET/CT, or tissue sampling. In a high-risk patient, consider CT at 3 months, PET/CT, or tissue sampling. . In a high-risk patient, CT at 3-6 months, then CT at 18-24 months. - Low risk patients include individuals with minimal or absent history of smoking and other known risk factors. - High risk patients include individuals with a history or smoking or known risk factors. Radiology 2017 http://pubs.rsna.org/doi/full/10.1148/radiol.6136700583 D/ / Brian Walsh MD / Brian Walsh MD Interpreting Provider: Brian Walsh MD - Attending Attestation The history, physical exam, and medical decision making was performed by medical student El[place] either while I was physically present and actively involved or I personally re-performed the exam and medical decision making. I have verified the accuracy of the medical student's documentation with regards to the history, physical exam findings, and medical decision making. Mr Blanchard has pmhx Diastolic CHF, Chronic resp failure 2/2 COPD on 4L NC daily, HTN, PE h on AC, chronci anemia who is admitted for COPDE He presented with sob, facial swelling and chest pain awake, on bipap, requesting it be continued bc he is comfortable on it and gong to be taking a nap. no sob or increased work of breathing on bipap. Denies any further chest pain, and described "pain" as tightness while sob. No nausea, vomiting, fever or chills. + cough with sputum. Facial swelling gradual onset in nature. gen- alert, awake,appears stated age eyes- pupils equal round ent- bipap face mask in place cv- reg rate and rhythm, normal s1,s2, no murmurs appreciated, no le edema, no jvd appreciated lungs- diminshed throughout with poor aeration no wheezing, rhonchi or crackles can be appreciated, normal resp effort on bipap abd- soft, non tender, non distended, + bs neuro- AAOx3 COPDE- CTA without PE, + emphysematous changes, no consolidation or effusions, viral panel negative cont steroids, nebs, azithromycin -bipap prn sleeping and HS, wean to nc today as able, no eating while on bipap Acute on chronic hypoxic resp failure- as evidenced by need for bipap/o2 requirement higher than baseline, treatment as above FAcial swelling- suspect this is related to chronci steroid use 20 mg PO daily, cTA without SVC syndrome Chronic steroid use- at this time he appears stable on prednisone for treatment of copde (40 mg), home dose 20 mg, VS without indication for stress dose steroids at this time, this was discussed with floor pharmacist, who reviewed records and rec is to cont 40 mg dose and if any instability could add hydrocortisone Chest pain, resolved with bipap and neb treatments Trop Elevation to 0.09 likely demand from hypoxia - trop 0.09 and started on hep gtt in ed, ekg without ischemic changes, repeat trops neg x2, hep gtt was dc prior to admission, he is continued on home oral AC Chronic anemia, at baseline - cont ot monitor Stable 9.4 mm RUL pulm nodule- rec for outpt CT scan vs tissue sample in 3 months vte ppx xarelto
[2018-06-04] MEDS ORDERED: D5% in Water 1,000 ML IVC PRN (08:27)
[2018-06-04] MEDS ORDERED: Dextrose Gel 15 GM/37.5 ML TUBE PO PRN ×2 (08:27)
[2018-06-04] MEDS ORDERED: *HR* Dextrose 50 % in Water (Syg) 50 ML SYRINGE IVP PRN (08:27)
[2018-06-04] MEDS: Gabapentin 300 MG CAPSULE PO SCH ×3 (08:53→20:41)
[2018-06-04] MEDS: predniSONE 20 MG TABLET PO SCH (08:53)
[2018-06-04] MEDS: Furosemide 20 MG TABLET PO SCH ×3 (08:53→17:01)
[2018-06-04 09:58] LABS: Adenovirus Not Detected (Not Detect); Bordetella Pertussis Not Detected (Not Detect); Chlamydophila pneumoniae Not Detected (Not Detect); Coronavirus 229E Not Detected (Not Detect); Coronavirus HKU1 Not Detected (Not Detect); Coronavirus NL63 Not Detected (Not Detect); Coronavirus OC43 Not Detected (Not Detect); Human Metapneumovirus Not Detected (Not Detect); Human Rhinovirus/Enterovirus Not Detected (Not Detect); Influenza A Subtype 2009 H1 Not Detected (Not Detect); Influenza A Untypeable Not Detected (Not Detect); Influenza B Not Detected (Not Detect); Mycoplasma pneumoniae Not Detected (Not Detect); Parainfluenza Virus 1 Not Detected (Not Detect); Parainfluenza Virus 2 Not Detected (Not Detect); Parainfluenza Virus 3 Not Detected (Not Detect); Parainfluenza Virus 4 Not Detected (Not Detect); Respiratory Syncytial Virus Not Detected (Not Detect)
--- NOTE | 2018-06-04 11:42 | Event Note ---
Date of Encounter: 06/04/18 Time of Encounter: 11:40 Patient is currently using BiPAP during the day despite being advised that he cannot use BiPAP following eating due to aspiration risk by physician and by nursing staff. He is refusing to remove BiPAP as he wants to take a nap, and insists on wearing the BiPAP. As a result, and due to the risk for aspiration leading to worsening of respiratory function, I have discontinued diet and will make the patient NPO until he is able to maintain without BiPAP for at least 6 hours.
[2018-06-04] MEDS: Insulin LISPRO 300 UNITS/3 ML VIAL SQ SCH ×2 (12:12→17:02)
--- NOTE | 2018-06-04 17:42 | Electrocardiograph Report ---
[place] [id number] Test Date: 2018-06-03 Pat Name: Jason Blanchard Department: [id number] Room: 3A45 Gender: M Clinical Data Research: : 1960 Requested By: Charlie Mcgovern Order Number: [id number] Reading MD: Josselin Friedman Measurements Intervals [place] Rate: 73 P: 31 AR: 152 QRS: 22 QRSD: 107 T: 35 QT: 424 QTc: 468 Interpretive Statements Sinus rhythm Abnormal R-wave progression, early transition Premature ectopic beats Electronically Signed On 06-04-2018 17:40:58 EST by Josselin Friedman
[2018-06-04] MEDS ORDERED: *HR* Rivaroxaban 10 MG TABLET PO SCH (18:00)
[2018-06-04] MEDS ORDERED: Insulin LISPRO 300 UNITS/3 ML VIAL SQ SCH (21:00)
[2018-06-05] MEDS: Ipratropium/Albuterol Neb 3 ML IH SCH ×2 (04:04→10:29)
[2018-06-05 04:07] LABS: Hematocrit 31.2 % (37.5-50.1); Hemoglobin 9.8 g/dL (12.9-16.9); Immature Granulocytes % 0.5 % (0-4); Lymphocytes # 1.6 K/mcL (0.6-4.6); Lymphocytes % 19.5 %; Mean Corpuscular HGB Conc 31.4 g/dL (31.6-35.5); Mean Corpuscular Hemoglobin 26.6 pg (28.0-33.3); Mean Corpuscular Volume 84.8 fL (83.0-100.0); Mean Platelet Volume 9.6 fL (9.4-12.4); Monocytes # 0.6 K/mcL (0.0-1.3); Monocytes % 6.7 %; Platelet Count 362 K/mcL (140-400); Red Blood Count 3.68 M/mcL (4.19-5.50); Red Cell Distribution Width 16.6 % (11.5-14.5); Segmented Neutrophils % 73.3 %
[2018-06-05 04:21] LABS: BUN/Creatinine Ratio 36 (6-26); Blood Urea Nitrogen 20 mg/dL (6-20); Calcium 9.1 mg/dL (8.6-10.3); Carbon Dioxide 31 mEq/L (23-29); Chloride 103 mEq/L (98-107); Glucose 143 mg/dL (70-105); Osmolality,Calculated 297 (280-300); Potassium 3.6 mEq/L (3.5-5.1); Sodium 141 mEq/L (136-145); eGFR For Non-African Americans > 60 (> 60)
[2018-06-05] MEDS: Azithromycin 500 MG in D5% in Water 250 ML IVPB SCH (04:57)
[2018-06-05 07:08] VITALS: BP 114/72
[2018-06-05] MEDS: Insulin LISPRO 300 UNITS/3 ML VIAL SQ SCH (09:00)
[2018-06-05] MEDS: Furosemide 20 MG TABLET PO SCH (09:05)
[2018-06-05] MEDS: predniSONE 20 MG TABLET PO SCH (09:05)
[2018-06-05] MEDS: Gabapentin 300 MG CAPSULE PO SCH (09:05)
--- NOTE | 2018-06-05 11:06 | Discharge Summary ---
<Annika Suazo - Last Filed: 06/05/18 11:57> - NOTES TO OUTPATIENT PROVIDER Notes to Outpatient Provider: PT LEFT HOSPITAL AMA, REQUEST FOR PULM APPT PLACED, HE NO SHOWED SCHEDULED APPT LAST WEEK. We did send him with 2eek steroid taper (40 mg to his home 20 mg daily) and azithro to complete course Date of Encounter: 06/05/18 Hospital course: Mr. Blanchard is a 58 year old male - Time Spent with Patient Total time spent providing and/or coordinating discharge services: - Discharge Medications Prescriptions: Azithromycin 250 mg PO DAILY #3 tablet predniSONE [PredniSONE] 10 mg PO DAILY #49 tablet Home Medications: Oxygen 4 l NS CONT 07/25/17 [History] Roflumilast [Daliresp] 500 mcg PO DAILY 07/25/17 [History] Loratadine [Claritin] 10 mg PO DAILY #30 tablet 11/09/17 [Rx] Gabapentin [Neurontin] 300 mg PO TID 12/31/17 [History] Albuterol Sulfate [Albuterol Inhaler] 2 puff IH Q4H PRN #1 inhaler 01/17/18 [Rx] Rivaroxaban [Xarelto] 20 mg PO QPM 03/06/18 [History] Potassium Chloride 20 meq PO DAILY #30 tab.er.prt 04/11/18 [Rx] Mometasone/Formoterol [Dulera 100 Mcg/5 Mcg Inhaler] 2 puff IH BID 04/25/18 [History] Ipratropium/Albuterol Sulfate [Iprat-Albut 0.5-3(2.5) mg/3 ml] 1 vial IH Q4H #120 04/29/18 [Rx] Furosemide [Lasix] 20 mg PO TID 05/05/18 [History] Omeprazole [PriLOSEC] 20 mg PO DAILY 05/05/18 [History] Azithromycin 250 mg PO DAILY #3 tablet 06/05/18 [Rx] predniSONE [PredniSONE] 10 mg PO DAILY #49 tablet 06/05/18 [Rx] Allergies/Adverse Reactions: Allergy/AdvReac Type Severity Reaction Status Date / Time levofloxacin AdvReac See Verified 05/05/18 16:16 Comments Date of admission: 06/04/18 15:18 Primary care physician: PCP NONE Consults: 06/04/18 05:05 Consult to Nurse Navigator [CONS] Routine Comment: Discharging clinician: Nalini Trivedi - Constitutional Vitals: Temp Pulse Resp BP Pulse Ox 96.4 F L 62 18 114/72 98 06/05/18 07:00 06/05/18 07:00 06/05/18 10:29 06/05/18 07:00 06/05/18 10:29 - Patient Status Disposition: Left Against Medical Advice Condition: Fair - Discharge Instructions Instructions: Chronic Obstructive Pulmonary Disease (DC) Follow Up With: Nilson Campa [Resident] - 06/12/18 1:00 pm Cyndi Singh MD [Partnered Physician] - (Web request. Office will call patient at home. Thank you) Additional Instructions: Continue taking azithromycin beginning tomorrow. Take one pill per day until they are gone. Take 40mg prednisone for 7 days, then take 30mg for 7 days, then resume home dose of prednisone 20mg. Next dose of azithromycin and prednisone is due tomorrow morning. Followup with pulmonology as scheduled. Return to the ED if symptoms worsen or if new concerns arise. - Attending Attestation I examined this patient and my medical decision-making was reviewed with the [facility] Physician Dr Trivedi. I agree with the documented findings, disposition and treatment plan as described except to the extent set forth below. Mr Blanchard has pmhx Diastolic CHF, Chronic resp failure 2/2 COPD on 4L NC daily, HTN, PE h on AC, chronic anemia who is admitted for COPDE He presented with sob, facial swelling and chest pain. HE LEFT HOSPITAL AMA 06/05/18 AM DESPITE EDUCATION BY STAFF AND MYSELF. HE VERBALIZED UNDERSTANDING OF RISK OF WORSENING RESP STATUS OR . HE WAS GIVEN RX FOR STEROID TAPER (40 MG TAPER TO HOME 20 MG DAILY OVER TWO WEEKS) AND AZITHRO TO COMPLETE 5 D COURSE. ALSO A REQUEST FOR PULM OFFICE FU WAS PLACED. HE RECENTLY DID NOT SHOW FOR APPT THERE PRIOR TO THIS ADMIT awake, on o2 nc, no further chest pain. demanding to leave. gen- alert, awake,appears stated age eyes- pupils equal round cv- reg rate and rhythm, normal s1,s2, no murmurs appreciated, no le edema, no jvd appreciated lungs- diminshed throughout with poor aeration no wheezing, rhonchi or crackles can be appreciated, normal resp effort on o2 nc neuro- AAOx4 COPDE- CTA without PE, + emphysematous changes, no consolidation or effusions, viral panel negative given rx for azithro to complete course and steroid taper as above, encouraged to use nebs and fu with pulm office LEFT AMA Acute on chronic hypoxic resp failure- as evidenced by need for bipap/o2 requirement higher than baseline, treatment as above, has home o2, has been on 4L NC this morning FAcial swelling- suspect this is related to chronic steroid use 20 mg PO daily, cTA without SVC syndrome Chronic steroid use- 20 mg daily as confirmed by outpt pulm records and pharmacy fills. He did not require stress dose steroids while here Chest pain, resolved with bipap and neb treatments Trop Elevation to 0.09 likely demand from hypoxia - trop 0.09 and started on hep gtt in ed, ekg without ischemic changes, repeat trops neg x2, hep gtt was dc prior to admission, he is continued on home oral AC Chronic anemia, at baseline Stable 9.4 mm RUL pulm nodule- rec for outpt CT scan vs tissue sample in 3 months , pt left before this recommendaiton could be discussed further diagnoses and plan as noted by resident <Nalini Trivedi - Last Filed: 06/05/18 21:20> Date of Encounter: 06/05/18 Time of Encounter: 10:59 - Discharge Diagnosis (1) Acute exacerbation of chronic obstructive airways disease Priority: Primary Status: Acute (2) Elevated troponin Priority: Secondary Status: Acute (3) Pulmonary nodule Priority: Secondary Status: Acute (4) Obstructive sleep apnea Priority: Secondary Status: Chronic Hospital course: Mr. Blanchard is a 58 year old male who presents to the ED on 06/03/18 due to difficulty breathing and swelling of his face 1 week. He does have an extensive history of COPD with exacerbation requiring hospitalization over the last year; subsequently, he is on a chronic dose of prednisone. He was admitted to the hospital on 06/04/18 for acute COPD exacerbation. Initial laboratory workup revealed elevated troponin, which was felt to be secondary to demand ischemia due to his COPD. Chest CTA showed no evidence of PE or SVC syndrome. He was started on IV azithromycin and prednisone, with supplemental oxygen via BiPAP. Patient did improve symptomatically, and was able to discontinue constant use of BiPAP. Patient elected to leave AMA on 06/05/18, stating that he felt much better and was back to his baseline. He was advised to remain in the hospital to continue receiving IV antibiotics and steroids, as this would continue to improve his respiratory status and would decrease the likelihood of a subsequent readmission. Patient was advised of the risks of leaving AGAINST MEDICAL ADVICE, including worsening respiratory status, hospital redictation, and/or possible . Patient voiced understanding of these concerns and elected to sign out AMA. He was provided with a prescription to complete a five-day course of azithromycin and oral prednisone with a 11 week taper of 40 mg, followed by a one-week taper of 30 mg, after which he was to resume home dose prednisone. Patient was provided with an appointment with pulmonology clinic for outpatient follow-up. - Time Spent with Patient Total time spent providing and/or coordinating discharge services: Date of admission: 06/04/18 15:18 Primary care physician: PCP NONE Consults: 06/04/18 05:05 Consult to Nurse Navigator [CONS] Routine Comment: - Constitutional Vitals: Temp Pulse Resp BP Pulse Ox 96.4 F L 62 18 114/72 98 06/05/18 07:00 06/05/18 07:00 06/05/18 10:29 06/05/18 07:00 06/05/18 10:29 Exam: - HEENT: Atraumatic and normocephalic. - Respiratory: Diminshed breath sounds, and wheezes appreciated on exam. Scattered wheezes present. Patient does appear to become dyspneic after prolonged conversation. - CV: RRR, no gallops, rubs, or murmurs - Extremities: Warm, radial pulses present and +2 bilaterally, no cyanosis or clubbing - Neuro: AAOx3. Patient answers questions appropriately and is cooperative with exam.
== END 2018-06-05 11:45 | disposition left against medical advice (07) | DRG 133 ==
LOC: 3ANU 20:17 → EMEROOARM 20:17 → SUATTDRO 06-04 00:11 → 3ANU 06-04 00:25
PROVIDERS: ADMIT Pediatrics; ATTEND Internal Medicine